=== PATIENT | female | born 1955 | race Caucasian/White ===

== ENCOUNTER 2017-10-13 17:44 | Observation (INO) | payer BC, OTHER ==
[2017-10-13 18:36] LABS: Hematocrit 42 % (35-47); Hemoglobin 13.9 g/dl (12.0-16.0); Mean Corpuscular HGB Conc 34 g/dl (31-36); Mean Corpuscular Hemoglobin 30 pg (27-31); Mean Corpuscular Volume 89 fL (80-97); Mean Platelet Volume 10 um3 (7.4-10.4); Red Blood Count 4.67 10^6/ul (4.0-5.4); Red Cell Distribution Width 14 % (10.5-15); White Blood Count 7.4 10^3/ul (3.5-10.8)
[2017-10-13 18:51] LABS: Albumin 3.9 g/dL (3.2-5.2); BUN/Creatinine Ratio 16.5 (8-20); Calcium 9.4 mg/dL (8.6-10.3); EGFR African American 80.8 (>60); EGFR Non-African American 62.8 (>60); Potassium 4.3 mmol/L (3.5-5.0); Total Bilirubin 0.5 mg/dL (0.2-1.0); Total Protein 6.9 g/dL (6.4-8.9)
[2017-10-13] MEDS ORDERED: NS 0.9% 1000 ML* 1,000 ML IV ONE (19:08)
[2017-10-13] MEDS ORDERED: Diltiazem IV* 5 MG/ML 5 ML VIAL (for loading dose/IV Push) (25 MG) IV SLOW PU ONE ×2 (19:08→19:57)
--- NOTE | 2017-10-13 19:18 | RAD ---
Indication: Chest pain. Atrial fibrillation. RIGHT shoulder pain. Comparison: November 06, 2016 CT. Technique: Upright AP 1845 hours Report: Elevated lung volumes and both diffuse mild prominence of the interstitial markings and patchy rarefaction of the mid to upper lung zone interstitial markings. Bilateral calcified granulomas noted corresponding with prior CT findings most conspicuous at the periphery of the LEFT midlung zone. No suspicious focal pulmonary lesions, alveolar consolidation, pleural effusion, pneumothorax. Negative for cardiomegaly. Unremarkable central pulmonary vasculature. Tortuous thoracic aorta in part due to dextroscoliosis of the thoracic spine without significant change. IMPRESSION: Stigmata of obstructive lung disease and prior granulomatous disease. No acute pulmonary or cardiac process evident.
[2017-10-13] MEDS ORDERED: Aspirin TAB* 325 MG PO ONE (19:26)
[2017-10-13] MEDS ORDERED: oxyCODONE/Acetamin 5/325 MG* TAB PO ONE (20:40)
[2017-10-13] MEDS ORDERED: Acetaminophen TAB* 325 MG PO PRN (23:06)
[2017-10-13] MEDS ORDERED: Digoxin IV* 0.5 MG/2 ML AMP (0.25 MG/ML) IV SLOW PU ONE (23:06)
[2017-10-13] MEDS ORDERED: Cyclobenzaprine TAB* 10 MG PO PRN (23:06)
[2017-10-13] MEDS ORDERED: oxyCODONE/Acetamin 5/325 MG* TAB PO PRN (23:09)
[2017-10-13 23:50] LABS: TSH (Thyroid Stimulating Horm) 7.01 mcIU/mL (0.34-5.60)
--- NOTE | 2017-10-14 02:33 | HP ---
CC: Dr. Kraus; Dr. Bone * HISTORY AND PHYSICAL: DATE OF ADMISSION: 10/13/17 PRIMARY CARE PROVIDER: Dr. Kraus SIMULATION EDUCATOR: Dr. Bone. CHIEF COMPLAINT: Atrial fibrillation. HISTORY OF PRESENT ILLNESS: Ms. Soto is a 62-year-old female who states that this past Thursday, at approximately midnight, she was awakened from sleep by her significant other and noted that she went into atrial fibrillation. The patient has a history of paroxysmal atrial fibrillation and states in general, the episodes are usually short lived. In fact, the patient had an episode where she went into atrial fibrillation over the summer which broke on its own at home without any intervention. Because of this history, she did not seek attention right away. The patient states that from time to time over the last couple of days, she thought the AFib went away; however, when she sat quietly, she noted that she was still having palpitations. The patient denies any significant shortness of breath associated with this. In addition to being in atrial fibrillation, the patient notes that she has had significant right shoulder pain since yesterday afternoon. She states that it has gotten progressively worse. She does note that heating pad last evening helped; however, in the morning of admission after getting up and moving for a little while, the pain came back. She does note that she feels better when she is sitting straight upright with her shoulders back and has more pain when she is standing or walking. She describes that as almost feeling like a spasm. The patient also has partial relief of her pain when she positioned her arm with her shoulder completely abducted and forearm bent back behind her head. PAST MEDICAL HISTORY: 1. Paroxysmal atrial fibrillation. 2. Thoracic aortic ectasia. 3. Osteopenia. 4. Mitral valve insufficiency. 5. Hypothyroidism. 6. Marfan's syndrome. PAST SURGICAL HISTORY: 1. Bilateral eye surgery for strabismus. 2. Polyp removal from the urinary tract as a child. MEDICATIONS: 1. Alendronate 70 mg p.o. weekly. 2. Levothyroxine 88 mcg p.o. daily. 3. Metoprolol XL 25 mg p.o. b.i.d. 4. Potassium chloride 10 mEq p.o. b.i.d. 5. Xarelto 20 mg p.o. daily. ALLERGIES: SULFA and NICKEL. FAMILY HISTORY: Mom at the age of 78 of a CVA. Dad at the age of 45. He had Marfan's but related to an HI. SOCIAL HISTORY: The patient is a lifelong nonsmoker. She drinks alcohol on occasion. 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 She has a significant other. His name is Beto Fuchs and he is her surrogate decision maker. She has no children. REVIEW OF SYSTEMS: A complete 11-system review of systems is obtained. Pertinent positives and negatives are as per HPI and otherwise negative. PHYSICAL EXAMINATION GENERAL: The patient is a well-developed, middle-aged female, sleeping on the stretcher but awakened to voice, in no acute distress. VITAL SIGNS: Blood pressure 85/61, pulse is 121, respirations 15, temp not obtained, O2 sat 93% on room air. HEENT: Pupils are equal and round. Extraocular muscles are intact. Oropharynx is clear. Oral mucosa is moist. There is no submandibular, cervical , or supraclavicular adenopathy. Thyroid is not enlarged. No thyroid nodules are noted. PULMONARY: Lungs are clear to auscultation bilaterally. CARDIAC: Normal S1, S2. Heart rate is regularly irregular and tachycardic. She is in atrial fibrillation on the monitor. She has no lower extremity edema. ABDOMEN: Bowel sounds are present. Abdomen is soft, nontender, nondistended. MUSCULOSKELETAL: There is no cyanosis or clubbing of the digits. There is full active range of motion of all four extremities. There is no increased pain with movement about the right shoulder. SKIN: Warm and dry. There are no rashes. NEUROLOGIC: Cranial nerves II through XII are grossly intact. Sensation is intact to light touch throughout. Strength is 5/5 and symmetric in both upper and lower extremities bilaterally. PSYCH: The patient is alert. She is oriented x3. Affect appears appropriate. LABORATORY DATA: WBC 7.4, hemoglobin 13.9, hematocrit 42, platelets 185. D- dimer less than 200. Sodium 135, potassium 4.3, chloride 103, CO2 27, BUN 15, creatinine 0.91, glucose 87, lactic acid 1, calcium 9.4, magnesium 2.0, bilirubin 0.5, AST 18, ALT 15, alk phos 32, troponin 0 up to 0.01, albumin 3.9. EKG reveals atrial fibrillation with rapid ventricular response. Chest x-ray stigmata of obstructive lung disease and prior granulomatous disease. No acute pulmonary or cardiac process evident. ASSESSMENT AND PLAN: Ms. Soto is a 62-year-old female with a history of Marfan's syndrome, hypothyroidism, mitral valve insufficiency, and paroxysmal atrial fibrillation, who presents to the emergency room with complaints of being in atrial fibrillation since this past Thursday and with complaints of right shoulder pain. 1. Atrial fibrillation. The patient's heart rate has fluctuated quite a bit anywhere from the 90s up to 140s. When she is up, she has noted that her heart rate is on the higher side. Her blood pressure is soft, therefore I cannot go up much on her metoprolol. We will go ahead and try digoxin 0.25 mg IV x1 now and if this does not improve her heart rate or break her back into sinus rhythm , we can repeat a dose. The patient states previously she has responded well to digoxin. She will be maintained on her usual dose of Xarelto. At this point , I will hold off on a cardiology consultation; however, if her atrial fibrillation becomes difficult or unable to be controlled conservatively perhaps cardiology evaluation for cardioversion will be warranted. 2. Right shoulder pain. My suspicion is that this is musculoskeletal in nature. Given the fact that it responded well to heat as well as being somewhat positional makes cardiac chest pain seem less likely. For now, we will treat this conservatively with Tylenol, Flexeril, and Percocet as needed. If the shoulder pain goes away when her heart rate becomes controlled or she is out of atrial fibrillation that may lead me to be more concerned that shoulder pain is in fact cardiac in nature. At this point, I am going to hold off on stress testing. 3. Hypothyroidism. The patient will be maintained on her usual dose of Synthroid. Her most recent TSH in our system was January of this year and was within normal range. I will go ahead and add on TSH to the labs drawn in the ER. 4. DVT prophylaxis: According to the Adult Thrombosis Prophylaxis Risk Factor Assessment Guide, the patient has a total risk factor score of 2, making her moderate risk. She is already on Xarelto and this will act as a DVT prophylaxis. 5. Code status is full and again the patient indicates that her partner, Beto, is her surrogate decision maker. TIME SPENT: 65 minutes was spent admitting this patient. [id number]/[facility] #: [id number] MTDD
[2017-10-14] MEDS ORDERED: Levothyroxine TAB* 88 MCG TAB PO SCH ×2 (06:00→11:00)
[2017-10-14] MEDS ORDERED: Metoprolol Succinate XL TAB* 25 MG PO SCH (09:00)
[2017-10-14] MEDS ORDERED: Potassium Chlor TAB* 10 MEQ TAB.ER PO SCH (09:00)
[2017-10-14] MEDS ORDERED: Rivaroxaban TAB(*) 20 MG TAB PO SCH (09:00)
--- NOTE | 2017-10-14 09:00 | PN ---
Subjective Date of Service: 10/14/17 Interval History: Still has palpitations as usual when she is in A fib. No SOB, SOB, cough, chest pain, lightheadedness. Objective Active Medications: Acetaminophen (Tylenol Tab*) 650 mg PO Q4H PRN PRN Reason: PAIN Cyclobenzaprine HCl (Flexeril Tab*) 10 mg PO TID PRN PRN Reason: SPASMS Last Admin: 10/14/17 05:56 Dose: 10 mg Levothyroxine Sodium (Synthroid Tab*) 88 mcg PO 1100 O[facility] Metoprolol Succinate (Toprol Xl Tab*) 25 mg PO BID OZZIE Oxycodone/Acetaminophen (Percocet 5/325 Tab*) 1 tab PO Q6H PRN PRN Reason: PAIN Potassium Chloride (Klor Con Er Tab*) 10 meq PO BID OZZIE Rivaroxaban (Xarelto (*)) 20 mg PO DAILY [facility] Vital Signs 10/13/17 10/13/17 10/14/17 23:22 23:26 05:56 Temperature 97.4 F Pulse Rate 92 103 Respiratory 16 15 Rate Blood Pressure 95/70 (mmHg) O2 Sat by Pulse 96 Oximetry 10/14/17 10/14/17 10/14/17 06:31 07:34 08:42 Temperature 97.5 F 97.8 F Pulse Rate 97 66 Respiratory 16 16 18 Rate Blood Pressure 103/64 99/60 (mmHg) O2 Sat by Pulse 95 94 Oximetry Oxygen Devices in Use Now: None Appearance: Alert, supine in bed. Somewhat anxious/concerned, otherwise looks comfortable. Eyes: No Scleral Icterus Respiratory: Symmetrical Chest Expansion and Respiratory Effort, Clear to Auscultation, Clear to Percussion Cardiovascular: NL Sounds; No Murmurs; No JVD, RRR - rapid and irreg, No Edema Result Diagrams: 10/13/17 18:12 10/13/17 18:12 Assess/Plan/Problems-Billing Assessment:
--- NOTE | 2017-10-14 09:12 | PN ---
Subjective Date of Service: 10/14/17 Interval History: Still has palpitations as usual when she is in A fib. No SOB, SOB, cough, chest pain, lightheadedness. Objective Active Medications: Acetaminophen (Tylenol Tab*) 650 mg PO Q4H PRN PRN Reason: PAIN Cyclobenzaprine HCl (Flexeril Tab*) 10 mg PO TID PRN PRN Reason: SPASMS Last Admin: 10/14/17 05:56 Dose: 10 mg Levothyroxine Sodium (Synthroid Tab*) 88 mcg PO 1100 [facility] Metoprolol Succinate (Toprol Xl Tab*) 25 mg PO BID [facility] Last Admin: 10/14/17 08:58 Dose: 25 mg Oxycodone/Acetaminophen (Percocet 5/325 Tab*) 1 tab PO Q6H PRN PRN Reason: PAIN Potassium Chloride (Klor Con Er Tab*) 10 meq PO BID [facility] Last Admin: 10/14/17 08:59 Dose: 10 meq Rivaroxaban (Xarelto (*)) 20 mg PO DAILY [facility] Last Admin: 10/14/17 08:58 Dose: 20 mg Vital Signs 10/13/17 10/13/17 10/14/17 23:22 23:26 05:56 Temperature 97.4 F Pulse Rate 92 103 Respiratory 16 15 Rate Blood Pressure 95/70 (mmHg) O2 Sat by Pulse 96 Oximetry 10/14/17 10/14/17 10/14/17 06:31 07:34 08:42 Temperature 97.5 F 97.8 F Pulse Rate 97 66 Respiratory 16 16 18 Rate Blood Pressure 103/64 99/60 (mmHg) O2 Sat by Pulse 95 94 Oximetry Oxygen Devices in Use Now: None Appearance: Alert, supine in bed. Somewhat apprehensive/concerned, otherwise looks comfortable. Eyes: No Scleral Icterus Neck: NL Appearance and Movements; NL JVP, No Thyroid Enlargement, Masses Respiratory: Symmetrical Chest Expansion and Respiratory Effort, Clear to Auscultation, Clear to Percussion Cardiovascular: NL Sounds; No Murmurs; No JVD, No Edema, - - rapid and irreg Extremities: No Edema, No Clubbing, Cyanosis, - Skin: No Rash or Ulcers, No Nodules or Sclerosis, - Neurological: Alert and Oriented x 3, NL Sensation Result Diagrams: 10/13/17 18:12 11/14/17 18:12 Assess/Plan/Problems-Billing Assessment: - Patient Problems (1) Atrial fibrillation Current Visit: No Status: Chronic Priority: High Onset Date: 09/29/14 Code(s): I48.91 - UNSPECIFIED ATRIAL FIBRILLATION SNOMED Code(s): 26928206 Comment: Patient has a history of paroxysmal atrial fibrillation that has not required cardioversion in the past. Pt states this is the longest period of AF she has ever had, and it makes her uncomfortable. Dr. Henderson performed elctrical cardioversion 10/14. Pt will get one dronedarone before discharge, take one at bedtime tonight, then bid with a meal. Fup Dr. Bone. (2) Marfan's syndrome Current Visit: No Status: Chronic Code(s): Q87.40 - MARFAN'S SYNDROME, UNSPECIFIED SNOMED Code(s): 99309854 Comment: Continue outpatient follow-up with PCP. Note has ectasia of thoracic aorta and UT. (3) Hypothyroidism Current Visit: No Status: Chronic Code(s): E03.9 - HYPOTHYROIDISM, UNSPECIFIED SNOMED Code(s): 09819343 Comment: TSH 7.01 10/13/17. Increase levothyroxine to 100 mcg daily. Status and Disposition: Discharge now. Fup Lizandro Benoit.
[2017-10-14 09:14] LABS: Free T4 1.03 ng/dL (0.61-1.12)
[2017-10-14] MEDS ORDERED: Flumazenil* 0.1 MG/ML 5 ML MDV ONE (14:59)
[2017-10-14] MEDS ORDERED: Naloxone* 0.4 MG/ML 1 ML VIAL ONE (14:59)
[2017-10-14] MEDS ORDERED: fentaNYL* 50 MCG/ML 2 ML VIAL (100 MCG VIAL) ONE (14:59)
[2017-10-14] MEDS ORDERED: Midazolam* 1 MG/ML 10 ML VIAL (10 MG) ONE (15:00)
[2017-10-14 16:34] VITALS: BP 96/60
[2017-10-14] MEDS ORDERED: Dronedarone TAB* 400 MG PO ONE (17:02)
[2017-10-14] MEDS ORDERED: Dronedarone TAB* 400 MG PO SCH (21:00)
--- NOTE | 2017-10-15 01:21 | CARD ---
CC: Dr. Zulay Kraus; Dr. Meir Bone * ELECTRICAL CARDIOVERSION NOTE: DATE OF CARDIOVERSION: 10/14/17 - ROOM #443 DESCRIPTION OF PROCEDURE: The indications, risks, and benefits were discussed with the patient in front of her significant other and she was amenable to proceeding. The patient confirmed that she had not missed any Xarelto doses and her telemetry tracing confirmed she remained in AFib with a rapid ventricular rate. A time-out procedure was called. Following this, the patient received a total of 4 mg of Versed and 25 mcg of fentanyl for sedation as well as normal saline wide open as her systolic pressures were in the high 80s to low 110s. The patient received 150 joules of energy synchronously delivered across the chest wall with successful cardioversion to normal sinus rhythm. Currently, she is in sinus rhythm, 62 beats a minute with a blood pressure of 93/63, respiratory rate 15, and oxygen saturation 93% on room air. CONCLUSION: Successful electrical cardioversion. No complications. [id number]/[facility] #: [id number] [facility]ITAL[facility]athan
[2017-10-15] MEDS ORDERED: Levothyroxine TAB* 100 MCG TAB PO SCH (06:00)
[2017-10-15] MEDS ORDERED: Metoprolol Succinate XL TAB* 25 MG PO SCH (09:00)
--- NOTE | 2017-10-15 12:24 | DS ---
CC: Dr. Kraus; Dr. Bone * DISCHARGE SUMMARY: DATE OF ADMISSION: 10/13/17 DATE OF DISCHARGE: 10/14/17 HISTORY: This 62-year-old woman presented with episode of atrial fibrillation. She gets palpitations, which are really bothersome to her. She is quite aware when the atrial fibrillation starts and stops. She does not get short of breath , have chest pain, lightheadedness. She has had atrial fibrillation for about 3 years. She has many episodes that stop on their own. She has never had cardioversion before. The patient is placed on telemetry. She remained in atrial fibrillation overnight. Dr. Henderson performed electrical cardioversion which was successful. She is being started on dronedarone 400 mg b.i.d. She will receive 1 dose before discharge and take another dose at bedtime and then take it twice daily with breakfast and dinner following that. Her TSH is noted to be over 7 and her levothyroxine dose was increased from 88 to 100 mcg daily. FINAL DIAGNOSES: 1. Paroxysmal atrial fibrillation. 2. Marfan syndrome. 3. Hypothyroidism. DISCHARGE MEDICATIONS: 1. Dronedarone 400 mg b.i.d. with meals. 2. Levothyroxine 100 mcg daily. 3. Metoprolol succinate XL 25 mg once daily, this is a reduction from twice daily. 4. Alendronate 70 mg weekly. 5. Rivaroxaban 20 mg daily. 6. Potassium chloride 10 mEq twice daily. [id number]/[facility] #: [id number] MTDD
--- NOTE | 2017-10-15 19:39 | CONS ---
CC: Dr. Bone; Dr. Kraus; hospitalist. * CARDIOLOGY CONSULTATION REPORT: DATE OF CONSULT: 10/14/17. REASON FOR CONSULT: Atrial fibrillation. HISTORY OF PRESENT ILLNESS: Ms. Soto is a 62-year-old woman with a history of paroxysmal atrial fibrillation and Marfan's syndrome, followed by my partner , Dr. Bone. The patient stated that over the weekend, a couple of days before admission, she was awakened from sleep with palpitations and racing consistent with her past history of atrial fibrillation. She stayed home as typically these episodes are self-limited, but it persisted, so she presented to the hospital yesterday on 10/13/17. The patient thought she has been in and out of it at least once over the weekend. The patient denied any association of the onset with alcohol, caffeine. She works a lot, but does not feel that she was losing a significant amount of sleep and she also presented because of progressive shoulder pain that increased while standing and walking and improved lying down. The patient denied feeling lightheaded, dizzy or having chest pain. There was no pleuritic quality to the right shoulder pain. The patient states that she has had no recent medication adjustments prior to admission, but is aware that her levothyroxine was increased on admission based on thyroid levels. PAST MEDICAL HISTORY: The patient has a past medical history of paroxysmal atrial fibrillation, Marfan's syndrome, thoracic aneurysm, mitral valve regurgitation osteopenia and hypothyroid disease. PAST SURGICAL HISTORY: Includes eye surgery and polyp removal from I believe her bladder in childhood. INPATIENT MEDICATIONS: Included: 1. Tylenol p.r.n. 2. Flexeril 10 mg t.i.d. p.r.n. 3. Toprol XL 25 mg b.i.d. 4. Synthroid 100 mcg a day. 5. Percocet p.r.n. 6. Potassium was given. 7. She is on Xarelto 20 mg a day. ALLERGIES: SULFA and NICKEL. FAMILY HISTORY: Significant in that her mother had a history of stroke for which she at age 78. Her father at age 45 from Marfan's with myocardial infarction. SOCIAL HISTORY: The patient is a nonsmoker, rare alcohol. 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 REVIEW OF SYSTEMS: A 14-point review of systems was performed, see history of present illness, with several days of palpitations and right shoulder pain. No recent fevers, chills, sweats. No change in bowel or bladder habits. No shortness of breath, orthopnea, PND. No dizziness. No diaphoresis. No recent tick bites that she is aware of. No perceived history of snoring or daytime fatigue. All other review of systems was negative. The patient states she has been compliant with her Xarelto. PHYSICAL EXAM: On exam, the patient is 5 feet 10 inches, weighs 161 pounds with a BMI of 23. Vitals Signs: On arrival to the emergency room, she was in atrial fibrillation, 140 betas per minute, blood pressure 116/93. Vitals at the time I met her were 87/58 and she was in A-Fib with rapid ventricular rate in the 120s. General Appearance: A tall, somewhat older woman, in no acute distress. Psychologically, calm, cooperative and pleasant. Neurologically, awake, alert and oriented to person, place, and time. Cranial nerves II through XII are grossly intact. Her left lid lags a little more than the right , but when I mentioned that with discussion, she can open her lids equally to slight asymmetry. No gross sensory or motor deficits. Speech was articulate. Comprehension is good. She follows commands well. I did not watch her walk. Skin: Warm, dry, age appropriate changes. No cyanosis or rashes appreciated. HEENT: Pupils were equal and round. Mucous membranes moist. Neck: Without increased JVP. Good carotid pulses. No audible bruits. Breath sounds were clear with good effort. No wheezes, rales or rhonchi. Coronary: S1, S2 irregularly irregular without murmurs appreciated. Abdomen: Flat, active bowel sounds, soft and nontender. Lower extremities are free of edema and warm. LABORATORY DATA/DIAGNOSTIC STUDIES: The patient's 12-lead ECG on admission, on 10/13/17 confirmed that she was in atrial fibrillation with rapid ventricular rate of 140 beats per minute, QRS axis +60, normal interventricular conduction time and non-specific ST and T-wave changes. White count 7.4, hemoglobin 13.9, platelets 185. D-dimer less than 200. Sodium 135, potassium 4.3, chloride 103, bicarb 27, BUN 15, creatinine 0.91. Troponin 0.00. Troponin #2 of 0.01. Troponin #3 of 0.01. TSH is 7.01. Free T4 1.03. Echocardiogram from 11/14/16 showed mild left ventricular hypertrophy, ejection fraction of 55% to 60%, mild mitral valve prolapse with moderate mitral insufficiency, mild dilatation of the ascending aorta of 3.5 cm. ASSESSMENT AND PLAN: In summary, Carrie Soto is a 62-year-old woman with a history of paroxysmal atrial fibrillation which was occurring several times a year, but in the past self-limited, now presenting with atrial fibrillation of several days by history, on Xarelto and metoprolol. I concurred with Dr. Bunch, electrical cardioversion is indicated and the patient was amenable to proceeding and we have successfully cardioverted her. Prior to sedation and cardioversion, I discussed antiarrhythmics with her and after discussion, we are going to start her on Multaq 400 mg b.i.d., although weak, it is very safe. The patient had concerns about beta-nelsy and thoracic ectasia and history of Marfan's, I am planning on decreasing her Toprol from 50 mg a day to 25 because of the risk of bradycardia (post-cardioversion heart rate in the 60s), and we can titrate as indicated. [id number]/[facility] #: [id number] MTDD
== END 2017-10-14 17:50 | disposition home or self-care (01) ==
LOC: ED 17:44 → MEDTELE 23:06
PROVIDERS: ADMIT Hospitalist; ATTEND Internal Medicine
DX: I48.0 Paroxysmal atrial fibrillation (principal); M25.511 Pain in right shoulder; Q87.40 Marfan syndrome, unspecified; E03.9 Hypothyroidism, unspecified; I77.810 Thoracic aortic ectasia; M85.80 Other specified disorders of bone density and structure, unspecified site; Z79.899 Other long term (current) drug therapy; I34.0 Nonrheumatic mitral (valve) insufficiency; Z88.2 Allergy status to sulfonamides; Z79.01 Long term (current) use of anticoagulants
CPT/HCPCS: 36415; 71010; 80053; 83605; 83735; 84439; 84443; 84484; 85025; 85379; 92960; 93005; 96374; 96375; 96376; 99156; 99157; 99284; A9270-GY; G0378; J1160; J2250; J2310; J3010

== ENCOUNTER 2018-01-08 14:12 | Emergency (ER) | payer BC ==
[2018-01-08 15:01] LABS: ABS Basophils 0.1 10^3/ul (0-0.2); ABS Eosinophils 0.1 10^3/ul (0-0.6); ABS Lymphocytes 1.8 10^3/ul (1.0-4.8); ABS Monocytes 0.8 10^3/ul (0-0.8); ABS Neutrophils 4.6 10^3/ul (1.5-7.7); ABS Nucleated RBC 0 10^3/ul; Eosinophil % 1.1 % (0-6); Hematocrit 42 % (35-47); Hemoglobin 14.1 g/dl (12.0-16.0); Lymphocyte % 24.1 % (25-47); Mean Corpuscular HGB Conc 34 g/dl (31-36); Mean Corpuscular Hemoglobin 30 pg (27-31); Mean Corpuscular Volume 88 fL (80-97); Mean Platelet Volume 9 um3 (7.4-10.4); Nucleated Red Blood Cells % 0; Platelet Count 191 10^3/ul (150-450); Red Blood Count 4.72 10^6/ul (4.0-5.4); Red Cell Distribution Width 14 % (10.5-15); White Blood Count 7.3 10^3/ul (3.5-10.8)
[2018-01-08 15:10] LABS: INR 2.1 (0.77-1.02)
--- NOTE | 2018-01-08 15:14 | RAD ---
HISTORY: Shortness of breath, atrial fibrillation COMPARISONS: October 13, 2017 VIEWS: 1: frontal portable view of the chest at 2:54 PM. The patient is obliqued to the left. FINDINGS: LINES AND TUBES: None. CARDIOMEDIASTINAL SILHOUETTE: The cardiomediastinal silhouette is normal for portable technique. PLEURA: The costophrenic angles are sharp. No pleural abnormalities are noted. LUNG PARENCHYMA: There is hyperinflation. There is stable calcified granuloma of the left midlung. ABDOMEN: The upper abdomen is clear. There is no subphrenic gas. BONES AND SOFT TISSUES: There is a scoliotic curvature of the spine IMPRESSION: HYPERINFLATION. NO ACTIVE CARDIOPULMONARY DISEASE.
[2018-01-08 15:16] LABS: EGFR Non-African American 65.3 (>60)
[2018-01-08] MEDS ORDERED: NS 0.9% 1000 ML* 1,000 ML IV ONE (16:08)
[2018-01-08 18:07] VITALS: BP 105/79
--- NOTE | 2018-01-09 16:50 | ED ---
Talya Timmons Thomas, scribed for Mukesh Chirinos MD on 01/08/18 at 1516 . Shortness of Breath - HPI Summary HPI Summary: The patient is a 62 year old female presenting with chest pain, palpitations, and shortness of breath that has been on and off for the last 10 hours. She rates the chest pain 3/10 and describes it as tightness. She describes the palpitations as fast and irregular. She denies nausea, vomiting, and near- syncope. She is on Xarelto and Multaq. - History of Current Complaint Chief Complaint: EDShortnessOfBreath Time Seen by Provider: 01/08/18 14:27 Hx Obtained From: Patient Onset/Duration: Lasting Hours - 10, Still Present Timing: Intermittent Episodes Lasting: Current Severity: Mild Dyspnea At: Rest Aggrevating Factors: Nothing Alleviating Factors: Spontaneous Resolution - Allergy/Home Medications Allergies/Adverse Reactions: Allergies Allergy/AdvReac Type Severity Reaction Status Date / Time MS Sulfa Drugs [Sulfa Drugs] Allergy Intermediate Rash Verified 08/21/16 19:04 MS Nickel [Nickel] Allergy Rash Verified 08/21/16 19:04 PMH/Surg Hx/FS Hx/Imm Hx Endocrine/Hematology History: Reports: Hx Thyroid Disease, Other Endocrine/ Hematological Disorders - HX LYMES DISEASE 2012 Denies: Hx Diabetes Cardiovascular History: Reports: 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, Other Cardiovascular Problems/Disorders - HX TIA Denies: Hx Hypertension, Hx Pacemaker/ICD, Hx Peripheral Vascular Disease History: Denies: Hx Dialysis, Hx Renal Disease Musculoskeletal History: Reports: Other Musculoskeletal History - MARFAN'S SYNDROME (CONTECTIVE TISSUE DISORDER) Denies: Hx Arthritis, Hx Rheumatoid Arthritis, Hx Osteoporosis Sensory History: Reports: Hx Cataracts, Hx Contacts or Glasses Denies: Hx Hearing Aid Opthamlomology History: Reports: Hx Cataracts, Hx Contacts or Glasses Neurological History: Denies: Hx Headaches, Hx Seizures, Hx Transient Ischemic Attacks (TIA) Psychiatric History: Denies: Hx Anxiety, Hx Panic Disorder - Cancer History Hx Chemotherapy: No Hx Radiation Therapy: No - Surgical History Surgery Procedure, Year, and Place: BL CATARACT SURGERY, 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 Infectious Disease History: No Infectious Disease History: Reports: Hx Shingles - NOT CURRENT Denies: Traveled Outside the [place] in Last 30 Days - Family History Known Family History: Positive: Other - Marfan syndrome - Social History Alcohol Use: Rare Alcohol Amount: GLASS OF WINE W/DINNER Substance Use Type: Reports: None Smoking Status (MU): Never Smoked Tobacco Review of Systems Positive: Palpitations, Chest Pain Positive: Shortness Of Breath Negative: Vomiting, Nausea Negative: Syncope - near All Other Systems Reviewed And Are Negative: Yes Physical Exam - Summary Physical Exam Summary: VITAL SIGNS: Reviewed. GENERAL: Patient is a well-developed and nourished female who is lying comfortable in the stretcher. Patient is not in any acute respiratory distress. HEAD AND FACE: No signs of trauma. No ecchymosis, hematomas or skull depressions. No sinus tenderness. EYES: PERRLA, EOMI x 2, No injected conjunctiva, no nystagmus. EARS: Hearing grossly intact. Ear canals and tympanic membranes are within normal limits. MOUTH: Oropharynx within normal limits. NECK: Supple, trachea is midline, no adenopathy, no JVD, no carotid bruit, no c- spine tenderness, neck with full ROM. CHEST: Symmetric, no tenderness at palpation LUNGS: Clear to auscultation bilaterally. No wheezing or crackles. CVS: Regular rate and rhythm, S1 and S2 present, no murmurs or gallops appreciated. ABDOMEN: Soft, non-tender. No signs of distention. No rebound no guarding, and no masses palpated. Bowel sounds are normal. EXTREMITIES: FROM in all major joints, no edema, no cyanosis or clubbing. NEURO: Alert and oriented x 3. No acute neurological deficits. Speech is normal and follows commands. SKIN: Dry and warm Triage Information Reviewed: Yes Vital Signs On Initial Exam: Initial Vitals Temp Pulse Resp BP Pulse Ox 97.8 F 76 18 96/61 97 01/08/18 14:17 01/08/18 14:17 01/08/18 14:17 01/08/18 14:17 01/08/18 14:17 Vital Signs Reviewed: Yes Diagnostics - Vital Signs Vital Signs Temp Pulse Resp BP Pulse Ox 01/08/18 14:17 97.8 F 76 18 96/61 97 - Laboratory Lab Results: Lab Results 01/08/18 Range/Units 14:40 WBC 7.3 (3.5-10.8) 10^3/ul RBC 4.72 (4.0-5.4) 10^6/ul Hgb 14.1 (12.0-16.0) g/dl Hct 42 (35-47) % MCV 88 (80-97) fL MCH 30 (27-31) pg MCHC 34 (31-36) g/dl RDW 14 (10.5-15) % Plt Count 191 (150-450) 10^3/ul MPV 9 (7.4-10.4) um3 Neut % (Auto) 62.7 (38-83) % Lymph % (Auto) 24.1 L (25-47) % [place] % (Auto) 11.1 H (1-9) % Eos % (Auto) 1.1 (0-6) % Baso % (Auto) 1.0 (0-2) % Absolute Neuts (auto) 4.6 (1.5-7.7) 10^3/ul Absolute Lymphs (auto) 1.8 (1.0-4.8) 10^3/ul Absolute Monos (auto) 0.8 (0-0.8) 10^3/ul Absolute Eos (auto) 0.1 (0-0.6) 10^3/ul Absolute Basos (auto) 0.1 (0-0.2) 10^3/ul Absolute Nucleated RBC 0 10^3/ul Nucleated RBC % 0 Result Diagrams: 01/08/18 14:40 01/08/18 14:40 Lab Statement: Any lab studies that have been ordered have been reviewed, and results considered in the medical decision making process. - Radiology CXR Xray Interpretation: No Acute Changes - HYPERINFLATION. NO ACTIVE CARDIOPULMONARY DISEASE. Radiology Interpretation Completed By: Radiologist - EKG 14:20 Cardiac Rate: Bradycardia EKG Rhythm: Sinus Bradycardia - at 50 BPM EKG Interpretation: ST depressions in II, III, V4-V6. Course/Dx - Course Assessment/Plan: The patient is a 62 year old female presenting with chest pain , palpitations, and shortness of breath that has been on and off for the last 10 hours. She rates the chest pain 3/10 and describes it as tightness. She describes the palpitations as fast and irregular. She denies nausea, vomiting, and near-syncope. She is on Xarelto and Multaq. Test results are without significant abnormalities. EKG shows sinus rhythm without any episodes of A- Fib. Two troponins taken four hours apart are negative. The patient continues to be asymptomatic. Therefore, the patient will be discharged home for follow up with primary care. The patient is hemodynamically stable and alert and oriented x3. - Diagnoses Provider Diagnoses: Atypical chest pain Discharge - Discharge Plan Condition: Stable Disposition: HOME Patient Education Materials: Chest Pain (ED) Referrals: Zulay Kraus MD [Primary Care Provider] - 3 Days Additional Instructions: Follow up with your primary care provider in three days. Return to the emergency department for any new or worsening symptoms. The documentation as recorded by the Talya fajardo Thomas accurately reflects the service I personally performed and the decisions made by Taran bhatt Walter, MD.
== END 2018-01-08 18:06 | disposition home or self-care (01) ==
LOC: ED 14:12
DX: R07.89 Other chest pain (principal); E07.9 Disorder of thyroid, unspecified; A69.20 Lyme disease, unspecified; I34.1 Nonrheumatic mitral (valve) prolapse; Q87.40 Marfan syndrome, unspecified; Z86.73 Personal history of transient ischemic attack (TIA), and cerebral infarction without residual deficits
CPT/HCPCS: 36415; 71045; 80053; 82550; 82553; 83605; 83735; 83880; 84443; 84484; 85025; 85610; 85730; 93005; 96360; 99283

== ENCOUNTER 2018-08-09 16:06 | Observation (INO) | payer BC ==
--- NOTE | 2018-08-09 16:23 | ED ---
Palpitations / Dysrhythmia - HPI Summary HPI Summary: 62 y/o female presents to the ED c/o 03/09 pain in R shoulder lasting 2 weeks. Pain was initially worse and has improved since onset. Pain aggravated with weight-bearing anmd walking but not with ROM R shoulder. Associated sx: mild chest discomfort described as a "tenseness", fatigue. PMHx AFIB. Seen by doctor , started Flexeril three nights ago. AFIB started two nights ago. PMHx Marfan's Syndrome. 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 FHx - father had Marfan's and of a heart attack. - History of Current Complaint Chief Complaint: EDDysrhythmPalp Time Seen by Provider: 08/09/18 16:20 Hx Obtained From: Patient Onset/Duration: Lasting Weeks, Still Present Severity Initially: Severe Severity Currently: Moderate Aggravating: Other - weight bearing, walking Alleviating: Rest Associated Signs & Symptoms: Chest Pain - Allergy/Home Medications Allergies/Adverse Reactions: Allergies Allergy/AdvReac Type Severity Reaction Status Date / Time Sulfa (Sulfonamide Allergy Intermediate Rash Verified 08/09/18 20:49 Antibiotics) nickel Allergy Rash Verified 08/09/18 20:49 Home Medications: Home Medications Ascorbic Acid TAB* [Vitamin C TAB*] 500 mg PO DAILY 08/09/18 [History Confirmed 08/09/18] Baclofen TAB* [Lioresal TAB*] 5 mg PO TID PRN 08/09/18 [History Confirmed ] Cyclobenzaprine (NF) [Cyclobenzaprine 5 MG (NF)] 5 mg PO Q8HR 08/09/18 [History Confirmed 08/09/18] Flaxseed Oil 1,000 mg PO DAILY 08/09/18 [History Confirmed 08/09/18] Levothyroxine TAB* [Synthroid TAB*] 100 mcg PO .SIX DAYS A WEEK 08/09/18 [ History Confirmed 08/09/18] Magnesium Oxide [Magnesium] 250 mg PO BID 08/09/18 [History Confirmed 08/09/18] Metoprolol Succinate XL TAB* [Toprol XL TAB*] 12.5 mg PO BEDTIME 08/09/18 [ History Confirmed 08/09/18] Metoprolol Succinate XL TAB* [Toprol XL TAB*] 25 mg PO DAILY@1200 08/09/18 [ History Confirmed 08/09/18] Rivaroxaban TAB(*) [Xarelto 20 mg] 20 mg PO DAILY 08/09/18 [History Confirmed ] Selenium (NF) 200 mcg PO DAILY 08/09/18 [History Confirmed 08/09/18] PMH/Surg Hx/FS Hx/Imm Hx Previously Healthy: No Endocrine/Hematology History: Reports: Hx Thyroid Disease, Other Endocrine/ Hematological Disorders - HX LYMES DISEASE 2012 Denies: Hx Diabetes Cardiovascular History: Reports: 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, Other Cardiovascular Problems/Disorders - HX TIA Denies: Hx Hypertension, Hx Pacemaker/ICD, Hx Peripheral Vascular Disease History: Denies: Hx Dialysis, Hx Renal Disease Musculoskeletal History: Reports: Other Musculoskeletal History - MARFAN'S SYNDROME (CONTECTIVE TISSUE DISORDER) Denies: Hx Arthritis, Hx Rheumatoid Arthritis, Hx Osteoporosis Sensory History: Reports: Hx Cataracts, Hx Contacts or Glasses Denies: Hx Hearing Aid Opthamlomology History: Reports: Hx Cataracts, Hx Contacts or Glasses Neurological History: Denies: Hx Headaches, Hx Seizures, Hx Transient Ischemic Attacks (TIA) Psychiatric History: Denies: Hx Anxiety, Hx Panic Disorder - Cancer History Hx Chemotherapy: No Hx Radiation Therapy: No - Surgical History Surgery Procedure, Year, and Place: BL CATARACT SURGERY, 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 Negative: Fever, Chills Negative: Erythema Negative: Sore Throat Positive: Chest Pain - discomfort Negative: Shortness Of Breath, Cough Negative: Abdominal Pain, Vomiting, Nausea Negative: dysuria, hematuria Positive: Other - R shoulder pain. Negative: Edema Negative: Rash Neurological: Other - no dizziness All Other Systems Reviewed And Are Negative: Yes Physical Exam - Summary Physical Exam Summary: Constitutional: Well-developed, Well-nourished, Alert. (-) Distressed Skin: Warm, Dry HENT: Normocephalic; Atraumatic Eyes: Conjunctiva normal Neck: Musculoskeletal ROM normal neck. (-) JVD, (-) Stridor, (-) Tracheal deviation Cardio: Rhythm regular, rate normal, Heart sounds normal; Intact distal pulses; The pedal pulses are 2+ and symmetric. Radial pulses are 2+ and symmetric. (-) Murmur Pulmonary/Chest wall: Effort normal. (-) Respiratory distress, (-) Wheezes, (-) Rales Abd: Soft, (-) epigastric tenderness, (-) Distension, (-) Guarding, (-) Rebound Musculoskeletal: (-) Edema. Full ROM R Shoulder. Lymph: (-) Cervical adenopathy Neuro: Alert, Oriented x3 Psych: Mood and affect Normal Triage Information Reviewed: Yes Vital Signs On Initial Exam: Initial Vitals Temp Pulse Resp BP Pulse Ox 98 F 42 18 104/67 97 08/09/18 16:15 08/09/18 16:15 08/09/18 16:15 08/09/18 16:15 08/09/18 16:15 Vital Signs Reviewed: Yes Diagnostics - Vital Signs Vital Signs Temp Pulse Resp BP Pulse Ox 08/09/18 16:15 98 F 42 18 104/67 97 - Laboratory Result Diagrams: 08/09/18 16:46 08/09/18 16:46 Lab Statement: Any lab studies that have been ordered have been reviewed, and results considered in the medical decision making process. - Radiology CXR Xray Interpretation: No Acute Changes - No active cardiopulmonary disease noted. Radiology Interpretation Completed By: Radiologist - ED physician reviews and agrees - CT CHEST CTA CT Interpretation Completed By: Radiologist - 1. No aortic dissection, aneurysm, or rupture. No pulmonary emboli. 2. Several small thyroid nodules. ACR White Paper guidelines (Lyon JK, et al. JACR 2015;12(2):143-50) suggest that no follow-up is necessary. 3. Cardiomegaly without overt failure. ED Physician reviews and agrees. - EKG 1 EKG Interpretation: 16:20 - AFIB @ 102 BPM. No STEMI. Course/Dx - Course Assessment/Plan: Spoke with Dr. Mcgowan, who accepted the pt for admission. Pt will require IV cardioactive medications fo rrate control and possible conversions. - Diagnoses Provider Diagnoses: Atrial fibrillation with RVR, Chest pain, unspecified - Critical Care Time Critical Care Time: 30-74 min - 45 min Discharge - Sign-Out/Discharge Documenting (check all that apply): Patient Departure - Discharge Plan Condition: Stable Disposition: ADMITTED TO [facility] Referrals: Zulay Kraus MD [Primary Care Provider] - - Attestation Statements Document Initiated by Scribe: Yes Documenting Scribe: Declan Benavidez Provider For Whom Scribe is Documenting (Include Credential): Perico Lopez MD Scribe Attestation: Declan Timmons, scribed for Perico Lopez MD on 08/09/18 at 3098.
[2018-08-09] MEDS ORDERED: Aspirin 81 mg CHEW TAB* 81 MG TAB.CHEW PO ONE (16:37)
--- OUTSIDE RECORDS SUMMARY | 2018-08-09 16:46 | XMS REPORT ---
:1955 External Reference #:[id number] Author Organization [facility] Address [address] [place] [address] [place] [address] Phone [phone] Care Team Providers Name Role Phone Zulay Kraus MD Primary Care Physician Unavailable Payers Type Date Identification Numbers Payment Provider Subscriber Commercial Policy Number: [id number] [facility] Nicky Moore PayID: [id number] [address] [place] [address] Problems Date Description Provider Status Onset: 03/17/2011 Marfan's syndrome Fern Jaen M.D., MIA Active Onset: 03/17/2011 Hypothyroidism Fern Jean M.D., MIA Active Onset: 09/13/2014 Atrial fibrillation Meir Bone M.D., [facility], [facility] Active Onset: 09/13/2014 Mitral valve disorder Meir Bone M.D., [facility], [facility] Active Note: mitral valave insufficiency Onset: 11/07/2014 Osteoporosis Zulay Kraus M.D. Active Onset: 11/07/2014 Scoliosis deformity of spine Zulay Kraus M.D. Active Onset: 02/19/2015 Tendinosis Zulay Kraus M.D. Active Note: rotatot cuff with AC joint OA Onset: 10/10/2015 Thoracic aortic ectasia Meir Bone M.D., [facility], [facility] Active Onset: 10/23/2015 Arachnoid cyst Zulay Kraus, M.D. Active Note: L anterior fossa Onset: 12/18/2015 Disturbance in sleep behavior Yudi Louie MD Active Onset: 11/17/2016 Paroxysmal atrial fibrillation Meir Bone M.D., [facility], Active [facility] Onset: 03/17/2011 Osteochondropathy Fern Jean M.D., FACP Inactive Inactive: 11/07/2014 Onset: 03/17/2011 Pure hypercholesterolemia Fern Jean M.D., FACP Inactive Inactive: 11/07/2014 Family History Date Family Member(s) Problem(s) Comments General Heart Disease : (age 43 Years) Father due to [place] Father due to Marfan's () Mother due to Stroke () : (age 42 Years) First Brother due to Accident First Sister 67 First Sister Chronic Obstructive Pulmonary Disease (COPD) Social History Type Date Description Comments Marital Status Single Lives With Male Partner Occupation [employer] ETOH Use Rarely consumes alcohol Smoking Patient has never smoked Recreational Drug Use Negative For Denies Drug Use Daily Caffeine Consumes on average 2 cups of hot tea per day Exercise Type/Frequency Exercises regularly aqua therapy 2 days a week Allergies, Adverse Reactions, Alerts Date Description Reaction Status Severity Comments 01/23/2010 Sulfa Urticaria active Moderate 09/09/2016 Nickel active Medications Medication Date Status Form Strength Qnty SIG Indications Ordering Provider Cyclobenzaprine 08/05 Active Tablets 5mg 30tab take 1 S13.8xxA Zulay HCL /2017 s tablet Kraus, every 8 M.D. hrs Levothyroxine 10/20 Active Tablets 100mcg 90tab 100 mcg PO E03.9 Zulay Sodium /2016 s Daily x 6 Kraus, Days A M.D. Week Calcium 600 + D 02/04 Active Tablets 600-200mg 1 tab bid Zulay /2015 -Unit Brittney Kraus Potassium 10/23 Active Capsules ER 10Meq 180ca 1 by mouth Meir Chloride ER /2014 ps twice Stefek, daily M.D., [facility], [facility] Magnesium 10/23 Active Tablets 250mg 1 by mouth Zulay /2015 twice Kraus, daily M.D. Metoprolol 12/14 Active Tablets ER 25mg 135ta 1.5 Meir Succinate ER /2014 24HR bs tablets by Stefek, mouth M.D., daily [facility], [facility] Xarelto 10/04 Active Tablets 20mg 90tab 1 by mouth s every day Brittney Bone, [facility], [facility] Selenium Active Tablets 1 po qd Flaxseed Oil Active Capsules 1 po qod Vit C, E, Active once a day Multaq Active Tablets 400mg 180ta take 1 bs tablet by Lizandro, radha M.D., twice a [facility], day [facility] Tramadol HCL Active Tablets 50mg take 1 tablet by mouth every 12 hours if needed for pain Baclofen 07/29 Hx Tablets 10mg 20tab take 12/01 M25.511 Henry s tab every Jesse, [employer] - 8 hours as 08/05 needed for muscle spasm Tramadol HCL 07/29 Hx Tablets 50mg 10tab 1 tablet M25.511 Henry s every 12 Jesse, [employer] - hours as 08/03 needed for pain. Zostavax 10/20 Hx Suspension [id number]/ 1unit sc x1 Rec 0.65ML s Nayana - M.DJan 01/18 Calcium 600 02/04 Hx Tablets 600mg 1 by mouth every day Milly Kraus M.D. 02/04 Oxycodone HCL 10/22 Hx Tablets 5mg 30tab 12/01 to B34.9 s tab for Kraus, pain every M.D. 8 hours as needed Potassium 10/18 Hx Tablets ER 20Meq 2 tab Unknown Chloride daily - 10/23 Malarone 06/13 Hx Tablets 250-100mg 30tab one by Francia s mouth Varn, N.P. - daily 07/13 starting - 2 days before arriving and continue for 7 days after leaving [facility] n Potassium 04/03 Hx Tablets ER 10Meq 180ta 1 tab by Zulay Chloride bs mouth Nayana, - twice a M.D. Alendronate 11/07 Hx Tablets 70mg 12tab take 1 M81.0 Zulay Sodium s tablet by Nayana, - mouth M.D. 10/30 weekly ( Stop taking recently been off for 1 week) Levothyroxine 10/17 Hx Tablets 88mcg 30tab take 1 E03.9 Henry Sodium s tablet by DAVID Molina - mouth once 10/20 Potassium 10/04 Hx Tablets 10Meq 60tab 1 tab by Other s mouth Ordering - twice a Provider Levothyroxine 10/03 Hx Tablets 88mcg 1 by mouth Other every day Ordering - Provider 10/17 Doxycycline 03/[address] 100mg 2caps 1 by mouth 088.81 Fern Hyclate Part twice a Miranda, - day M.D., [facility] 09/12 Doxycycline 06/[address] 100mg 20cap 1 by mouth 088.81 Fern Hyclate Part s twice a Miranda, - day M.D., [facility] 06/23 Citalopram 06/15 Hx Tablets 10mg 90tab take 1 300.00 Fern Hydrobromide s tablet Miranda, - daily M.D., [facility] 09/12 Clonazepam 06/15 Hx Tablets 0.5mg 60tab take 1 300.00 Fern s tablet Miranda, - twice M.D., [facility] 09/12 daily needed Levothyroxine 10/06 Hx Tablets 50mcg 90tab take 1 Francia Sodium s tablet by Anisha, N.P. - mouth once 10/03 Nasonex 06/10 Hx Suspension 50mcg/Act 1unit 2 sprays 477.9 s to each Miranda, - nostril M.D., FACP 09/01 once daily Baby Aspirin 03/19 Hx Chewtabs 81mg 100un 1 tablet its by mouth Miranda, - when M.D., [facility] 12/25 traveling Malarone 10/21 Hx Tablets 250-100mg 27tab take 1 Fern s daily 2d Miranda, - prior to M.D., FACP 03/19 and 7d upon return home Ambien 07/16 Hx Tablets 5mg 20tab 1 tablet Amita s by mouth Cotton, at bedtime M.D. as needed for sleep insomnia Synthroid 07/16 Hx Tablets 50mcg 90tab 1 in the s am Milly Jean M.D., [facility] 10/06 Evista 07/16 Hx Tablets 60mg 90tab take 1 s tablet by Cotton, - mouth once M.D. 11/07 Propranolol HCL 07/16 Hx Tablets 40mg 180ta take 1 bs tablet by Miranda - radha Lugo, [facility] 10/04 twice a day Prednisone 06/25 Hx Tablets 10mg 10tab 1 po qd s Milly Jean M.D., [facility] 03/19 Malarone Hx Tablets 250-100mg 22tab po qd 1 Unknown /0000 s day prior - to travel 03/21 through days after Calcium & Hx Tablets 1 po qd Unknown Magnesium /0000 - 02/04 Levothyroxine Hx Tablets 75mcg take 1 Unknown Sodium /0000 tablet by - mouth once 10/17 Metoprolol Hx Tablets 25mg take 1 Unknown Tartrate /0000 tablet by - mouth 12/14 twice a day Digitek Hx Tablets 250mcg Take 1 Unknown /0000 Tablet By - Mouth 12/25 Daily AT 5PM Amoxicillin/Clav Hx Tablets 875-125mg take 1 Unknown ulanate /0000 tablet by Potassium - mouth 11/16 twice day Medications Administered in Office Medication Date Status Form Strength Qnty SIG Indications Ordering Provider Inj, Administered Injection Edson Vogt Regadenoson, Vera Smith M.D. 0.1 MG Technetium TC Administered Injection Edson Vogt 99M 013 Brittney Smith Tetrofosmin, Per Unit Dose Up To 40 Millicuries Immunizations CPT Code Status Date Vaccine Lot # [id number] Given 07/19/2018 Zoster (Shingles) Vaccine (HZV), Recombinant, Subunit, Adjuvanted 83117 Given 07/19/2018 Zoster (Shingles) Vaccine (HZV), Recombinant, Subunit, Adjuvanted 86373 Given 10/20/2017 Influenza Virus Vaccine, Quadrivalent, Split, [id number] Preservative Free 37223 Given 11/26/2016 Influenza Virus Vaccine, Quadrivalent, Split Virus, Im Use 86179 Given 2015 Influenza Virus Vaccine, Quadrivalent, Split, Preservative Free 94492 Given 10/17/2014 Tdap - Tetanus/Diptheria/Acellular Pertussis [id number] 82412 Given 10/17/2014 Flu Vaccine Split Virus Preservative Free For [id number] Indiv 3Yr Older 78709 Given 09/05/2013 Flu Vaccine Split Virus Preservative Free For [id number] Indiv 3Yr Older [id number] Given 09/01/2012 Fluzone Vaccine [id number] 77128 Given 01/30/2010 Influenza Virus Vaccine, Pandemic Formulation 77236 Given 01/30/2010 Administration Swine Flu Shot 89266 Given 01/05/2009 Influenza Virus 3Yrs & Over 82952 Given 11/24/2006 Influenza Virus 3Yrs & Over 75359 Given 11/24/2006 Influenza Virus 3Yrs & Over 80747 Given 2003 Td Toxoids Adsorbed For Use 7Yrs Or Older For Intramuscular Use Vital Signs Date Vital Result Comment 08/05/2018 Height 70.5 inches 5'10.50" Weight 163.00 lb Heart Rate 71 /min BP Systolic Sitting 82 mmHg BP Diastolic Sitting 60 mmHg O2 % BldC Oximetry 97 % BMI (Body Mass Index) 23.1 kg/m2 07/29/2018 Height 70.5 inches 5'10.50" Weight 163.00 lb Heart Rate 63 /min BP Systolic Sitting 109 mmHg BP Diastolic Sitting 80 mmHg O2 % BldC Oximetry 98 % BMI (Body Mass Index) 23.1 kg/m2 01/19/2018 Height 70.5 inches 5'10.50" Weight 167.00 lb w/ shoes Heart Rate 58 /min BP Systolic Sitting 104 mmHg BP Diastolic Sitting 64 mmHg Respiratory Rate 18 /min BMI (Body Mass Index) 23.6 kg/m2 Ejection Fraction 50-55% echo 11/17/17 11/09/2017 Height 70.5 inches 5'10.50" Weight 162.25 lb with out shoes Heart Rate 58 /min sit and 52 stand BP Systolic Sitting 100 mmHg Lue reg cuff BP Diastolic Sitting 70 mmHg Lue reg cuff BP Systolic Standing 98 mmHg Lue reg cuff BP Diastolic Standing 70 mmHg Lue reg cuff Respiratory Rate 16 /min BMI (Body Mass Index) 22.9 kg/m2 Ejection Fraction 55-60% date 11/14/2016 ECHO 10/20/2017 Weight 163.00 lb Heart Rate 56 /min BP Systolic Sitting 100 mmHg BP Diastolic Sitting 70 mmHg Body Temperature 97.8 F O2 % BldC Oximetry 98 % 05/27/2017 Height 70.5 inches 5'10.50" Weight 164.25 lb Heart Rate 56 /min BP Systolic 106 mmHg BP Diastolic 60 mmHg Body Temperature 97.2 F O2 % BldC Oximetry 98 % BMI (Body Mass Index) 23.2 kg/m2 11/17/2016 Height 70.5 inches 5'10.50" Weight 159.00 lb Heart Rate 54 /min 60 BP Systolic Sitting 100 mmHg left arm, reg cuff BP Diastolic Sitting 70 mmHg left arm, reg cuff BP Systolic Standing 92 mmHg left arm, reg cuff BP Diastolic Standing 70 mmHg left arm, reg cuff Respiratory Rate 16 /min BMI (Body Mass Index) 22.5 kg/m2 Ejection Fraction 55-60% 11/14/16 09/09/2016 Height 70.5 inches 5'10.50" Weight 157.00 lb Heart Rate 68 /min BP Systolic 115 mmHg BP Diastolic 70 mmHg Respiratory Rate 16 /min Body Temperature 97.7 F BMI (Body Mass Index) 22.2 kg/m2 08/21/2016 Weight 157.00 lb Heart Rate 73 /min BP Systolic Sitting 124 mmHg BP Diastolic Sitting 64 mmHg Body Temperature 99.7 F O2 % BldC Oximetry 96 % 02/07/2016 Height 71 inches 5'11" Weight 156.00 lb Heart Rate 54 /min BP Systolic 108 mmHg BP Diastolic 70 mmHg O2 % BldC Oximetry 98 % BMI (Body Mass Index) 21.8 kg/m2 02/05/2016 Height 71 inches 5'11" Weight 156.00 lb Heart Rate 53 /min BP Systolic Sitting 100 mmHg BP Diastolic Sitting 78 mmHg Body Temperature 97.6 F O2 % BldC Oximetry 98 % BMI (Body Mass Index) 21.8 kg/m2 12/18/2015 Height 71 inches 5'11" Weight 154.00 lb Heart Rate 64 /min BP Systolic 98 mmHg BP Diastolic 60 mmHg Respiratory Rate 14 /min O2 % BldC Oximetry 93 % BMI (Body Mass Index) 21.5 kg/m2 Neck Circumference in inches 14 12/03/2015 Height 71 inches 5'11" Weight 152.00 lb Heart Rate 56 /min 60 BP Systolic Sitting 100 mmHg right arm, reg cuff BP Diastolic Sitting 70 mmHg right arm, reg cuff BP Systolic Standing 98 mmHg right arm, reg cuff BP Diastolic Standing 70 mmHg right arm, reg cuff Respiratory Rate 16 /min BMI (Body Mass Index) 21.2 kg/m2 Ejection Fraction 60-65% 03/19/15 10/22/2015 Height 71 inches 5'11" Weight 152.00 lb Heart Rate 68 /min BP Systolic Sitting 124 mmHg BP Diastolic Sitting 72 mmHg Respiratory Rate 15 /min Body Temperature 98.8 F O2 % BldC Oximetry 98 % BMI (Body Mass Index) 21.2 kg/m2 10/10/2015 Height 71 inches 5'11" Weight 151.00 lb Heart Rate 56 /min 58 BP Systolic Sitting 110 mmHg right arm, reg cuff BP Diastolic Sitting 80 mmHg right arm, reg cuff BP Systolic Standing 108 mmHg right arm, reg cuff BP Diastolic Standing 80 mmHg right arm, reg cuff Respiratory Rate 16 /min BMI (Body Mass Index) 21.1 kg/m2 Ejection Fraction 60-65% 03/19/15 09/20/2015 Height 71 inches 5'11" Weight 151.75 lb Heart Rate 62 /min BP Systolic Sitting 102 mmHg BP Diastolic Sitting 68 mmHg Respiratory Rate 16 /min Body Temperature 95.8 F Pain Level 0 general aches and pains O2 % BldC Oximetry 97 % BMI (Body Mass Index) 21.2 kg/m2 02/19/2015 Height 71 inches 5'11" Weight 145.00 lb Pain Level 5 BMI (Body Mass Index) 20.2 kg/m2 02/05/2015 Height 71 inches 5'11" Weight 145.00 lb Heart Rate 54 /min BP Systolic 104 mmHg BP Diastolic 68 mmHg BMI (Body Mass Index) 20.2 kg/m2 12/14/2014 Height 70 inches 5'10" Weight 150.00 lb Heart Rate 74 /min 80 BP Systolic Sitting 106 mmHg right arm, reg cuff BP Diastolic Sitting 64 mmHg right arm, reg cuff BP Systolic Standing 102 mmHg right arm, reg cuff BP Diastolic Standing 70 mmHg right arm, reg cuff Respiratory Rate 20 /min BMI (Body Mass Index) 21.5 kg/m2 11/07/2014 Weight 151.00 lb Heart Rate 62 /min BP Systolic Sitting 118 mmHg BP Diastolic Sitting 66 mmHg 10/17/2014 Height 70 inches 5'10" Weight 150.75 lb Heart Rate 58 /min BP Systolic Sitting 88 mmHg BP Diastolic Sitting 56 mmHg Body Temperature 97.6 F O2 % BldC Oximetry 97 % BMI (Body Mass Index) 21.6 kg/m2 09/13/2014 Height 70.5 inches 5'10.50" Weight 153.00 lb Heart Rate 54 /min 64 BP Systolic Sitting 100 mmHg left arm, reg cuff BP Diastolic Sitting 68 mmHg left arm, reg cuff BP Systolic Standing 86 mmHg left arm, reg cuff BP Diastolic Standing 64 mmHg left arm, reg cuff Respiratory Rate 20 /min BMI (Body Mass Index) 21.6 kg/m2 03/21/2014 Weight 157.00 lb Heart Rate 51 /min BP Systolic Sitting 122 mmHg BP Diastolic Sitting 80 mmHg 09/05/2013 Height 70.5 inches 5'10.50" Weight 155.00 lb Heart Rate 54 /min BP Systolic Sitting 110 mmHg BP Diastolic Sitting 60 mmHg BMI (Body Mass Index) 21.9 kg/m2 06/29/2013 Weight 154.00 lb Heart Rate 54 /min BP Systolic Sitting 124 mmHg BP Diastolic Sitting 80 mmHg 06/23/2013 Weight 154.00 lb Heart Rate 56 /min BP Systolic Sitting 96 mmHg BP Diastolic Sitting 58 mmHg Body Temperature 97.9 F O2 % BldC Oximetry 98 % 06/01/2013 Weight 150.50 lb Heart Rate 52 /min BP Systolic Sitting 98 mmHg BP Diastolic Sitting 60 mmHg Body Temperature 98.4 F 09/01/2012 Height 70.5 inches 5'10.50" Weight 148.25 lb Heart Rate 52 /min BP Systolic Sitting 104 mmHg BP Diastolic Sitting 60 mmHg BMI (Body Mass Index) 21.0 kg/m2 07/05/2012 Height 69.75 inches 5'9.75" Weight 147.00 lb Heart Rate 56 /min BP Systolic Sitting 90 mmHg BP Diastolic Sitting 68 mmHg BMI (Body Mass Index) 21.2 kg/m2 06/15/2012 Height 69.75 inches 5'9.75" Weight 147.00 lb Heart Rate 60 /min BP Systolic Sitting 96 mmHg BP Diastolic Sitting 60 mmHg BMI (Body Mass Index) 21.2 kg/m2 06/10/2011 Height 69.75 inches 5'9.75" Weight 145.00 lb Heart Rate 66 /min BP Systolic Sitting 118 mmHg BP Diastolic Sitting 70 mmHg BMI (Body Mass Index) 21.0 kg/m2 03/19/2011 Height 69.75 inches 5'9.75" Weight 145.00 lb Heart Rate 58 /min BP Systolic Sitting 100 mmHg BP Diastolic Sitting 70 mmHg BMI (Body Mass Index) 21.0 kg/m2 Results Test Date Test Result H/L Range Note Laboratory test finding 02/04/2018 TSH (Thyroid Stim 2.13 mcIU/mL 0.34- 5.60 Horm) Free T4 (Free Thyroxine) 0.93 ng/dL 0.61-1.12 T3 Free 3.10 pg/mL 2.5-3.9 Laboratory test finding 01/08/2018 Troponin-I (TnI) 0.00 ng/mL <0.04 CBC Auto Diff 01/08/2018 White Blood Count 7.3 10^3/uL 3.5-10.8 Red Blood Count 4.72 10^6/uL 4.0-5.4 Hemoglobin 14.1 g/dL 12.0-16.0 Hematocrit 42 % 35-47 Mean Corpuscular Volume 88 fL 80-97 Mean Corpuscular Hemoglobin 30 pg 27-31 Mean Corpuscular HGB Conc 34 g/dL 31-36 Red Cell Distribution Width 14 % 10.5-15 Platelet Count 191 10^3/uL 150-450 Mean Platelet Volume 9 um3 7.4-10.4 Abs Neutrophils 4.6 10^3/uL 1.5-7.7 Abs Lymphocytes 1.8 10^3/uL 1.0-4.8 Abs Monocytes 0.8 10^3/uL 0-0.8 Abs Eosinophils 0.1 10^3/uL 0-0.6 Abs Basophils 0.1 10^3/uL 0-0.2 Abs Nucleated RBC 0 10^3/uL Granulocyte % 62.7 % 38-83 Lymphocyte % 24.1 % Low 25-47 Monocyte % 11.1 % High 1-9 Eosinophil % 1.1 % 0-6 Basophil % 1.0 % 0-2 Nucleated Red Blood Cells % 0 Laboratory test finding 01/08/2018 TSH (Thyroid Stim 2.84 mcIU/mL 0.34- 5.60 Horm) Inr/Protime 01/08/2018 Inr 2.10 High 0.77-1.02 Laboratory test finding 01/08/2018 Partial Thrombo Time 46.4 seconds High 26.0-36.3 PTT Lactic Acid 0.9 mmol/L 0.5-2.0 1 B-Type Natriuretic Peptide BNP 354 pg/mL High 2 Comp Metabolic Panel 01/08/2018 Sodium 133 mmol/L 133-145 Potassium 4.2 mmol/L 3.5-5.0 Chloride 101 mmol/L 101-111 Co2 Carbon Dioxide 27 mmol/L 22-32 Anion Gap 5 mmol/L 2-11 Glucose 108 mg/dL High 70-100 Blood Urea Nitrogen 15 mg/dL 6-24 Creatinine 0.88 mg/dL 0.51-0.95 BUN/Creatinine Ratio 17.0 8-20 Calcium 9.7 mg/dL 8.6-10.3 Total Protein 6.8 g/dL 6.4-8.9 Albumin 3.9 g/dL 3.2-5.2 Globulin 2.9 g/dL 2-4 Albumin/Globulin Ratio 1.3 1-3 Total Bilirubin 0.60 mg/dL 0.2-1.0 Alkaline Phosphatase 40 U/L 34-104 Alt 27 U/L 7-52 Ast 25 U/L 13-39 Egfr Non- 65.3 >60 Egfr 84.0 >60 3 CKMB 01/08/2018 CKMB ng/mL 1.8 ng/mL 0.6-6.3 Laboratory test finding 01/08/2018 Magnesium 1.9 mg/dL 1.9-2.7 Creatine Kinase(CK) 46 U/L 10-223 Troponin-I (TnI) 0.00 ng/mL <0.04 Laboratory test finding 11/20/2017 TSH (Thyroid Stim Horm) 1.54 mcIU/mL 0.34-5.60 T3 Free 3.50 pg/mL 2.5-3.9 Free T4 (Free Thyroxine) 1.19 ng/dL High 0.61-1.12 Laboratory test finding 11/17/2017 Blood Urea Nitrogen BUN 15 mg/dL 6-24 Creatinine 11/17/2017 Creatinine 0.82 mg/dL 0.51-0.95 Egfr Non- 70.9 >60 Egfr 91.1 >60 4 Laboratory test finding 10/13/2017 Troponin-I (TnI) 0.01 ng/mL <0.04 CBC Auto Diff 10/13/2017 White Blood Count 7.4 10^3/uL 3.5-10.8 Red Blood Count 4.67 10^6/uL 4.0-5.4 Hemoglobin 13.9 g/dL 12.0-16.0 Hematocrit 42 % 35-47 Mean Corpuscular Volume 89 fL 80-97 Mean Corpuscular Hemoglobin 30 pg 27-31 Mean Corpuscular HGB Conc 34 g/dL 31-36 Red Cell Distribution Width 14 % 10.5-15 Platelet Count 185 10^3/uL 150-450 Mean Platelet Volume 10 um3 7.4-10.4 Abs Neutrophils 4.2 10^3/uL 1.5-7.7 Abs Lymphocytes 2.2 10^3/uL 1.0-4.8 Abs Monocytes 0.8 10^3/uL 0-0.8 Abs Eosinophils 0.1 10^3/uL 0-0.6 Abs Basophils 0.1 10^3/uL 0-0.2 Abs Nucleated RBC 0 10^3/uL Granulocyte % 56.8 % 38-83 Lymphocyte % 29.7 % 25-47 Monocyte % 11.5 % High 1-9 Eosinophil % 1.2 % 0-6 Basophil % 0.8 % 0-2 Nucleated Red Blood Cells % 0 Laboratory test finding 10/13/2017 Lactic Acid 1.0 mmol/L 0.5-2.0 5 Comp Metabolic Panel 10/13/2017 Sodium 135 mmol/L 133-145 Potassium 4.3 mmol/L 3.5-5.0 Chloride 103 mmol/L 101-111 Co2 Carbon Dioxide 27 mmol/L 22-32 Anion Gap 5 mmol/L 2-11 Glucose 87 mg/dL 70-100 Blood Urea Nitrogen 15 mg/dL 6-24 Creatinine 0.91 mg/dL 0.51-0.95 BUN/Creatinine Ratio 16.5 8-20 Calcium 9.4 mg/dL 8.6-10.3 Total Protein 6.9 g/dL 6.4-8.9 Albumin 3.9 g/dL 3.2-5.2 Globulin 3.0 g/dL 2-4 Albumin/Globulin Ratio 1.3 1-3 Total Bilirubin 0.50 mg/dL 0.2-1.0 Alkaline Phosphatase 32 U/L Low 34-104 Alt 15 U/L 7-52 Ast 18 U/L 13-39 Egfr Non- 62.8 >60 Egfr 80.8 >60 6 Laboratory test finding 10/13/2017 Troponin-I (TnI) 0.00 ng/mL <0.04 Magnesium 2.0 mg/dL 1.9-2.7 D Dimer Quantitative < 200 ng/mL Less Than 230 7 Laboratory test finding 10/13/2017 TSH (Thyroid Stim 7.01 mcIU/mL High 0.34-5.60 Horm) Free T4 (Free Thyroxine) 1.03 ng/dL 0.61-1.12 Basic Metabolic Panel 06/10/2017 Sodium 137 mmol/L 133-145 Potassium 4.1 mmol/L 3.5-5.0 Chloride 105 mmol/L 101-111 Co2 Carbon Dioxide 27 mmol/L 22-32 Anion Gap 5 mmol/L 2-11 Glucose 88 mg/dL 70-100 Blood Urea Nitrogen 12 mg/dL 6-24 Creatinine 0.69 mg/dL 0.51-0.95 BUN/Creatinine Ratio 17.4 8-20 Calcium 9.2 mg/dL 8.6-10.3 Egfr Non- 86.8 >60 Egfr 111.6 >60 8 Laboratory test finding 06/10/2017 Magnesium 1.8 mg/dL Low 1.9-2.7 Lipid Profile (Trig/Chol/HDL) 06/10/2017 Triglycerides 104 mg/dL 9 Cholesterol 182 mg/dL 10 HDL Cholesterol 42.5 mg/dL 11 LDL Cholesterol 119 mg/dL 12 Laboratory test 05/27/2017 Cytology SEE RESULT BELOW 13 finding Laboratory test 02/02/2017 TSH (Thyroid Stim 2.01 mcIU/mL 0.34-5.60 finding Horm) T3 Free 3.40 pg/mL 2.5-3.9 Free T4 (Free Thyroxine) 0.94 ng/dL 0.61-1.12 CBC Auto Diff 08/21/2016 White Blood Count 9.8 10^3/uL 3.5-10.8 Red Blood Count 4.34 10^6/uL 4.0-5.4 Hemoglobin 12.6 g/dL 12.0-16.0 Hematocrit 38 % 35-47 Mean Corpuscular Volume 88 fL 80-97 Mean Corpuscular Hemoglobin 29 pg 27-31 Mean Corpuscular HGB Conc 33 g/dL 31-36 Red Cell Distribution Width 13 % 10.5-15 Platelet Count 240 10^3/uL 150-450 Mean Platelet Volume 9 um3 7.4-10.4 Abs Neutrophils 7.0 10^3/uL 1.5-7.7 Abs Lymphocytes 1.4 10^3/uL 1.0-4.8 Abs Monocytes 1.2 10^3/uL High 0-0.8 Abs Eosinophils 0.1 10^3/uL 0-0.6 Abs Basophils 0.1 10^3/uL 0-0.2 Abs Nucleated RBC 0 10^3/uL Granulocyte % 71.7 % 38-83 Lymphocyte % 14.3 % Low 25-47 Monocyte % 11.9 % High 1-9 Eosinophil % 1.3 % 0-6 Basophil % 0.8 % 0-2 Nucleated Red Blood Cells % 0 Inr/Protime 08/21/2016 Inr 1.21 High 0.89-1.11 Laboratory test finding 08/21/2016 Partial Thrombo Time 33.9 seconds 26.0 -36.3 PTT Lactic Acid 0.8 mmol/L 0.5-2.0 14 Comp Metabolic Panel 08/21/2016 Sodium 134 mmol/L 133-145 Potassium 3.9 mmol/L 3.5-5.0 Chloride 99 mmol/L Low 101-111 Co2 Carbon Dioxide 28 mmol/L 22-32 Anion Gap 7 mmol/L 2-11 Glucose 88 mg/dL 70-100 Blood Urea Nitrogen 12 mg/dL 6-24 Creatinine 0.65 mg/dL 0.51-0.95 BUN/Creatinine Ratio 18.5 8-20 Calcium 8.7 mg/dL 8.6-10.3 Total Protein 6.6 g/dL 6.4-8.9 Albumin 3.3 g/dL 3.2-5.2 Globulin 3.3 g/dL 2-4 Albumin/Globulin Ratio 1.0 1-3 Total Bilirubin 0.50 mg/dL 0.2-1.0 Alkaline Phosphatase 58 U/L 34-104 Alt 17 U/L 7-52 Ast 17 U/L 13-39 Egfr Non- 93.3 >60 Egfr 120.0 >60 15 Laboratory test finding 08/21/2016 Lipase 36 U/L 11.0-82.0 C Reactive Protein 78.75 mg/L High < 5.00 16 Urinalysis Profile 08/21/2016 Urine Color Colorless Urine Appearance Clear Urine Specific Mitchell 1.014 1.010-1.030 Urine pH 7.0 5-9 Urine Urobilinogen Negative Negative Urine Ketones Negative Negative Urine Protein Negative Negative Urine Leukocytes Negative Negative Urine Blood 1+ Negative Urine Nitrite Negative Negative Urine Bilirubin Negative Negative Urine Glucose Negative Negative Urine White Blood Cell Absent Absent Urine Red Blood Cell Trace(0-2/hpf) Absent Urine Bacteria Absent Absent Laboratory test finding 08/21/2016 Blood Culture SEE RESULT BELOW 17 Urine Culture And 08/21/2016 Urine Culture SEE RESULT BELOW 18 Sensitivities Laboratory test finding 08/21/2016 Cytology Non-[employer] SEE RESULT BELOW 19 CBC Auto Diff 08/21/2016 White Blood Count 10.4 10^3/uL 3.5-10.8 Red Blood Count 4.49 10^6/uL 4.0-5.4 Hemoglobin 12.9 g/dL 12.0-16.0 Hematocrit 39 % 35-47 Mean Corpuscular Volume 88 fL 80-97 Mean Corpuscular Hemoglobin 29 pg 27-31 Mean Corpuscular HGB Conc 33 g/dL 31-36 Red Cell Distribution Width 13 % 10.5-15 Platelet Count 235 10^3/uL 150-450 Mean Platelet Volume 8 um3 7.4-10.4 Abs Neutrophils 7.0 10^3/uL 1.5-7.7 Abs Lymphocytes 1.6 10^3/uL 1.0-4.8 Abs Monocytes 1.6 10^3/uL High 0-0.8 Abs Eosinophils 0.1 10^3/uL 0-0.6 Abs Basophils 0.1 10^3/uL 0-0.2 Abs Nucleated RBC 0 10^3/uL Granulocyte % 67.0 % 38-83 Lymphocyte % 15.1 % Low 25-47 Monocyte % 15.5 % High 1-9 Eosinophil % 1.4 % 0-6 Basophil % 1.0 % 0-2 Nucleated Red Blood Cells % 0 Basic Metabolic Panel 08/21/2016 Sodium 135 mmol/L 133-145 Potassium 4.3 mmol/L 3.5-5.0 Chloride 99 mmol/L Low 101-111 Co2 Carbon Dioxide 29 mmol/L 22-32 Anion Gap 7 mmol/L 2-11 Glucose 73 mg/dL 70-100 Blood Urea Nitrogen 14 mg/dL 6-24 Creatinine 0.72 mg/dL 0.51-0.95 BUN/Creatinine Ratio 19.4 8-20 Calcium 8.9 mg/dL 8.6-10.3 Egfr Non- 82.9 >60 Egfr 106.6 >60 20 Ua Routine 08/21/2016 Ua Specific Mitchell 1.010 Ua PH 5 Ua Color yellow Ua Appera clear Ua WBC neg Ua Protein neg Ua Glucose normal Ua Ketones neg Ua Bilirubin neg Ua Urobilinogen normal Ua Nitrite neg Ua Occult Blood about 250 Laboratory test finding 02/05/2016 Hepatitis C Antibody Nonreactive Nonreactive Basic Metabolic Panel 02/05/2016 Sodium 136 mmol/L 133-145 Potassium 4.3 mmol/L 3.5-5.0 Chloride 102 mmol/L 101-111 Co2 Carbon Dioxide 31 mmol/L 22-32 Anion Gap 3 mmol/L 2-11 Glucose 86 mg/dL 70-100 Blood Urea Nitrogen 15 mg/dL 6-24 Creatinine 0.61 mg/dL 0.51-0.95 BUN/Creatinine Ratio 24.6 High 8-20 Calcium 9.3 mg/dL 8.6-10.3 Egfr Non- 100.4 >60 Egfr 129.1 >60 21 Laboratory test finding 02/05/2016 Magnesium 1.9 mg/dL 1.9-2.7 Basic Metabolic Panel 11/16/2015 Sodium 136 mmol/L 133-145 Potassium 4.7 mmol/L 3.5-5.0 Chloride 102 mmol/L 101-111 Co2 Carbon Dioxide 29 mmol/L 22-32 Anion Gap 5 mmol/L 2-11 Glucose 82 mg/dL 70-100 Blood Urea Nitrogen 16 mg/dL 6-24 Creatinine 0.66 mg/dL 0.51-0.95 BUN/Creatinine Ratio 24.2 High 8-20 Calcium 9.4 mg/dL 8.6-10.3 Egfr Non- 91.7 >60 Egfr 117.9 >60 22 Laboratory test finding 11/16/2015 Magnesium 1.8 mg/dL Low 1.9-2.7 Digoxin 0.5 ng/ml Low 0.8-2.0 Comp Metabolic Panel 10/22/2015 Sodium 133 mmol/L 133-145 Potassium 4.1 mmol/L 3.5-5.0 Chloride 97 mmol/L Low 101-111 Co2 Carbon Dioxide 30 mmol/L 22-32 Anion Gap 6 mmol/L 2-11 Glucose 135 mg/dL High 70-100 Blood Urea Nitrogen 12 mg/dL 6-24 Creatinine 0.70 mg/dL 0.51-0.95 BUN/Creatinine Ratio 17.1 8-20 Calcium 9.5 mg/dL 8.6-10.3 Total Protein 7.0 g/dL 6.4-8.9 Albumin 4.0 g/dL 3.2-5.2 Globulin 3.0 g/dL 2-4 Albumin/Globulin Ratio 1.3 1-3 Total Bilirubin 1.20 mg/dL High 0.2-1.0 Alkaline Phosphatase 50 U/L 34-104 Alt 60 U/L High 7-52 Ast 39 U/L 13-39 Egfr Non- 85.6 >60 Egfr 110.1 >60 23 Laboratory test finding 10/22/2015 Magnesium 1.8 mg/dL Low 1.9-2.7 Coxsackie A 10/22/2015 Coxsackie Virus Type A(2) <1:8 Ab Coxsackie Virus Type A(4) Ab <1:8 Coxsackie Virus Type A(7) Ab <1:8 Coxsackie Virus Type A(9) AB <1:8 Coxsackie Virus Type A(10) Ab <1:8 Coxsackie Virus Type A(16) Ab <1:8 24 Ahrrison Lux Comprehensive 10/22/2015 Ebv Capsid Ag IgG Ab Positive Negative Ebv Capsid Ag IgM Ab Negative Negative Harrison-Lux Nuclear Antigen Positive Negative Harrison-Lux Virus Interp See Comment 25 Laboratory test finding 10/22/2015 Digoxin 0.8 ng/ml 0.8-2.0 Laboratory test finding 10/18/2015 Magnesium 1.8 mg/dL Low 1.9-2.7 Troponin-I (TnI) 0.00 ng/mL <0.03 26 TSH (Thyroid Stim Horm) 1.39 ?IU/mL 0.34-5.60 Comp Metabolic Panel 10/18/2015 Sodium 135 mmol/L 133-145 Potassium 3.6 mmol/L 3.5-5.0 Chloride 103 mmol/L 101-111 Co2 Carbon Dioxide 28 mmol/L 22-32 Anion Gap 4 mmol/L 2-11 Glucose 104 mg/dL High 70-100 Blood Urea Nitrogen 10 mg/dL 6-24 Creatinine 0.67 mg/dL 0.51-0.95 BUN/Creatinine Ratio 14.9 8-20 Calcium 9.2 mg/dL 8.6-10.3 Total Protein 6.6 g/dL 6.4-8.9 Albumin 3.8 g/dL 3.2-5.2 Globulin 2.8 g/dL 2-4 Albumin/Globulin Ratio 1.4 1-3 Total Bilirubin 0.70 mg/dL 0.2-1.0 Alkaline Phosphatase 46 U/L 34-104 Alt 97 U/L High 7-52 Ast 78 U/L High 13-39 Egfr Non- 90.1 >60 Egfr 115.9 >60 27 Laboratory test finding 10/18/2015 Lactic Acid 0.8 mmol/L 0.5-2.2 CBC Auto Diff 10/18/2015 White Blood Count 6.3 10^3/uL 4.8-10.8 Red Blood Count 4.95 10^6/uL 4.0-5.4 Hemoglobin 14.5 g/dL 12.0-16.0 Hematocrit 45 % 35-47 Mean Corpuscular Volume 90 fL 80-97 Mean Corpuscular Hemoglobin 29 pg 27-31 Mean Corpuscular HGB Conc 32 g/dL 31-36 Red Cell Distribution Width 13 % 10.5-15 Platelet Count 159 10^3/uL 150-450 Mean Platelet Volume 9 um3 7.4-10.4 Abs Neutrophils 4.1 10^3/uL 1.5-7.7 Abs Lymphocytes 1.1 10^3/uL 1.0-4.8 Abs Monocytes 0.8 10^3/uL 0-0.8 Abs Eosinophils 0.1 10^3/uL 0-0.6 Abs Basophils 0.2 10^3/uL 0-0.2 Abs Nucleated RBC 0 10^3/uL Granulocyte % 64.8 % 38-83 Lymphocyte % 17.6 % Low 25-47 Monocyte % 13.0 % High 1-9 Eosinophil % 1.3 % 0-6 Basophil % 3.3 % High 0-2 Nucleated Red Blood Cells % 0 Basic Metabolic Panel 12/17/2014 Sodium 134 mmol/L 133-145 Potassium 4.1 mmol/L 3.5-5.0 Chloride 103 mmol/L 101-111 Co2 Carbon Dioxide 30 mmol/L 22-32 Anion Gap 1 mmol/L Low 2-11 Glucose 72 mg/dL 70-100 Blood Urea Nitrogen 17 mg/dL 6-24 Creatinine 0.76 mg/dL 0.51-0.95 BUN/Creatinine Ratio 22.4 High 8-20 Calcium 9.1 mg/dL 8.6-10.3 Egfr Non- 78.2 >60 Egfr 100.5 >60 28 Basic Metabolic Panel 12/16/2014 Sodium 134 mmol/L 133-145 Potassium 4.1 mmol/L 3.5-5.0 Chloride 103 mmol/L 101-111 Co2 Carbon Dioxide 30 mmol/L 22-32 Anion Gap 1 mmol/L Low 2-11 Glucose 72 mg/dL 70-100 Blood Urea Nitrogen 17 mg/dL 6-24 Creatinine 0.76 mg/dL 0.51-0.95 BUN/Creatinine Ratio 22.4 High 8-20 Calcium 9.1 mg/dL 8.6-10.3 Egfr Non- 78.2 >60 Egfr 100.5 >60 29 Laboratory test finding 11/13/2014 TSH (Thyroid Stimulating 1.75 IU/mL 0.34-5.60 Horm) Free T3 2.80 pg/mL 2.5-3.9 Free T4 0.93 ng/mL 0.61-1.12 Vitamin D, 25 Hydroxy 11/13/2014 25-Hydroxy Vitamin D2 4.5 ng/mL 25-Hydroxy Vitamin D3 32 ng/mL 25-Hydroxy Vitamin D Total 37 ng/mL 30 Pthi 11/13/2014 PTH Intact 3.4 pmol/L 1.3-9.3 Calcium (PTH Intact) 9.0 mg/dL 8.6-10.3 Laboratory test finding 10/20/2014 Rapid Influenza A B (SEE NOTE) 31 Antigen CBC Auto Diff 10/20/2014 White Blood Count 4.6 10^3/uL Low 4.8-10.8 Red Blood Count 4.24 10^6/uL 4.0-5.4 Hemoglobin 13.0 g/dL 12.0-16.0 Hematocrit 39 % 35-47 Mean Corpuscular Volume 92 fL 80-97 Mean Corpuscular Hemoglobin 31 pg 27-31 Mean Corpuscular HGB Conc 33 g/dL 31-36 Red Cell Distribution Width 13 % 10.5-15 Platelet Count 125 10^3/uL Low 150-450 Mean Platelet Volume 10 um3 7.4-10.4 Abs Neutrophils 3.5 10^3/uL 1.5-7.7 Abs Lymphocytes 0.4 10^3/uL Low 1.0-4.8 Abs Monocytes 0.6 10^3/uL 0-0.8 Abs Eosinophils 0 10^3/uL 0-0.6 Abs Basophils 0 10^3/uL 0-0.2 Abs Nucleated RBC 0 10^3/uL Granulocyte % 75.6 % 38-83 Lymphocyte % 9.8 % Low 25-47 Monocyte % 13.7 % High 1-9 Eosinophil % 0.6 % 0-6 Basophil % 0.3 % 0-2 Nucleated Red Blood Cells % 0.1 Basic Metabolic Panel 10/20/2014 Sodium 130 mmol/L Low 133-145 Potassium 3.9 mmol/L 3.5-5.0 32 Chloride 98 mmol/L Low 101-111 Co2 Carbon Dioxide 26 mmol/L 22-32 Anion Gap 6 mmol/L 2-11 Glucose 80 mg/dL 70-100 Blood Urea Nitrogen 9 mg/dL 6-24 Creatinine 0.68 mg/dL 0.51-0.95 BUN/Creatinine Ratio 13.2 8-20 Calcium 8.6 mg/dL 8.6-10.3 Egfr Non- 88.9 >60 Egfr 114.3 >60 33 Laboratory test finding 10/17/2014 Cytology RUN DATE: 10/18/ <SEE NOTE> 34 Human Papilloma Virus Rna Negative Negative 35 Laboratory test finding 10/13/2014 TSH (Thyroid Stimulating 4.13 IU/mL 0.34-5.60 Horm) Free T3 2.60 pg/mL 2.5-3.9 Free T4 0.94 ng/mL 0.61-1.12 CBC Auto Diff 09/29/2014 White Blood Count 9.4 10^3/uL 4.8-10.8 Red Blood Count 4.55 10^6/uL 4.0-5.4 Hemoglobin 14.0 g/dL 12.0-16.0 Hematocrit 42 % 35-47 Mean Corpuscular Volume 92 fL 80-97 Mean Corpuscular Hemoglobin 31 pg 27-31 Mean Corpuscular HGB Conc 34 g/dL 31-36 Red Cell Distribution Width 13 % 10.5-15 Platelet Count 190 10^3/uL 150-450 Mean Platelet Volume 9 um3 7.4-10.4 Abs Neutrophils 5.6 10^3/uL 1.5-7.7 Abs Lymphocytes 2.5 10^3/uL 1.0-4.8 Abs Monocytes 1.0 10^3/uL High 0-0.8 Abs Eosinophils 0.2 10^3/uL 0-0.6 Abs Basophils 0.1 10^3/uL 0-0.2 Abs Nucleated RBC 0.01 10^3/uL Granulocyte % 60.0 % 38-83 Lymphocyte % 26.3 % 25-47 Monocyte % 10.2 % High 1-9 Eosinophil % 2.6 % 0-6 Basophil % 0.9 % 0-2 Nucleated Red Blood Cells % 0.1 Comp Metabolic Panel 09/29/2014 Sodium 138 mmol/L 133-145 Potassium 4.1 mmol/L 3.7-5.6 Chloride 103 mmol/L 101-111 Co2 Carbon Dioxide 28 mmol/L 22-32 Anion Gap 7 mmol/L 2-11 Glucose 102 mg/dL High 70-100 Blood Urea Nitrogen 14 mg/dL 6-24 Creatinine 0.83 mg/dL 0.51-0.95 BUN/Creatinine Ratio 16.9 8-20 Calcium 9.4 mg/dL 8.6-10.3 Total Protein 6.5 g/dL 6.4-8.9 Albumin 3.9 g/dL 3.2-5.2 Globulin 2.6 g/dL 2-4 Albumin/Globulin Ratio 1.5 1-3 Total Bilirubin 0.50 mg/dL 0.2-1.0 Alkaline Phosphatase 32 U/L Low 34-104 Alt 13 U/L 7-52 Ast 18 U/L 13-39 Egfr Non- 70.6 >60 Egfr 90.8 >60 36 Laboratory test finding 09/29/2014 Magnesium 1.9 mg/dL 1.9-2.7 Troponin I 0.00 ng/mL <0.03 37 TSH (Thyroid Stimulating Horm) 6.43 IU/mL High 0.34-5.60 Laboratory test finding 11/01/2013 CRP High Sensitivity 0.8 mg/L 38 Comp Metabolic Panel 11/01/2013 Sodium 137 mmol/L 133-145 Potassium 4.3 mmol/L 3.5-5.0 Chloride 102 mmol/L 101-111 Co2 Carbon Dioxide 31.0 mmol/L 22-32 Anion Gap 4.0 mmol/L 2-11 Glucose 88 mg/dL 70-100 Blood Urea Nitrogen 11 mg/dL 6-24 Creatinine 0.70 mg/dL 0.50-1.40 BUN/Creatinine Ratio 15.7 8-20 Calcium 9.2 mg/dL 8.1-9.9 Total Protein 6.4 g/dL 6.2-8.1 Albumin 3.9 g/dL 3.6-5.4 Globulin 2.5 g/dL 2-4 Albumin/Globulin Ratio 1.6 1-3 Total Bilirubin 1.1 mg/dL 0.4-1.5 Alkaline Phosphatase 38 U/L 30-110 Alt 16 U/L 14-54 Ast 23 U/L 12-42 Egfr Non- 86.2 >60 Egfr 110.9 >60 39 Lipid Profile (Trig/Chol/HDL) 11/01/2013 Triglycerides 98 mg/dL 40-200 Cholesterol 208 mg/dL High Less than 200 HDL Cholesterol 64 mg/dL High 40-60 40 Cholesterol/HDL Ratio 3.3 Average 1-4.44 LDL Cholesterol 124.4 High Less Than 100 41 Laboratory test 11/01/2013 TSH (Thyroid 6.00 miu/mL High 0.34-5.60 finding Stimulating Horm) Free T4 0.84 ng/mL 0.61-1.24 Laboratory test 09/05/2013 Cytology RUN DATE: finding <SEE NOTE> Laboratory test 06/23/2013 Erythrocyte Sed Rate 11 mm/Hr 0-30 finding CBC Auto Diff 06/23/2013 White Blood Count 7.1 10^3/uL 4.8-10.8 Red Blood Count 4.44 10^6/uL 4.0-5.4 Hemoglobin 13.7 g/dL 12.0-16.0 Hematocrit 41 % 35-47 Mean Corpuscular Volume 93 fL 80-97 Mean Corpuscular Hemoglobin 31 pg 27-31 Mean Corpuscular HGB Conc 33 g/dL 31-36 Red Cell Distribution Width 13 % 10.5-15 Platelet Count 181 10^3/uL 150-450 Mean Platelet Volume 10 um3 7.4-10.4 Abs Neutrophils 4.3 10^3/uL 1.5-7.7 Abs Lymphocytes 1.9 10^3/uL 1.0-4.8 Abs Monocytes 0.7 10^3/uL 0-0.8 Abs Eosinophils 0.2 10^3/uL 0-0.6 Abs Basophils 0.1 10^3/uL 0-0.2 Abs Nucleated RBC 0 10^3/uL Granulocyte % 60.4 % 38-83 Lymphocyte % 26.7 % 25-47 Monocyte % 9.6 % High 1-9 Eosinophil % 2.6 % 0-6 Basophil % 0.7 % 0-2 Nucleated Red Blood Cells % 0 Laboratory test finding 06/23/2013 Troponin I 0.03 ng/mL 0-0.06 43 TSH (Thyroid Stimulating Horm) 5.87 miu/mL High 0.34-5.60 C Reactive Protein 0.5 mg/dL Less than 0.5 CKMB 06/23/2013 CKMB ng/mL 2.5 ng/mL 0.3-4.0 44 Laboratory test finding 06/23/2013 Magnesium 2.1 mg/dL 1.7-2.6 Creatine Kinase 60 U/L 0-200 Comp Metabolic Panel 06/23/2013 Sodium 136 mmol/L 133-145 Potassium 4.3 mmol/L 3.5-5.0 Chloride 101 mmol/L 101-111 Co2 Carbon Dioxide 30.0 mmol/L 22-32 Anion Gap 5.0 mmol/L 2-11 Glucose 134 mg/dL High 70-100 Blood Urea Nitrogen 16 mg/dL 6-24 Creatinine 0.80 mg/dL 0.50-1.40 BUN/Creatinine Ratio 20.0 8-20 Calcium 9.2 mg/dL 8.1-9.9 Total Protein 6.6 g/dL 6.2-8.1 Albumin 3.8 g/dL 3.6-5.4 Globulin 2.8 g/dL 2-4 Albumin/Globulin Ratio 1.4 1-3 Total Bilirubin 0.8 mg/dL 0.4-1.5 Alkaline Phosphatase 41 U/L 30-110 Alt 17 U/L 14-54 Ast 22 U/L 12-42 Egfr Non- 74.2 >60 Egfr 95.4 >60 45 Laboratory test finding 06/23/2013 Inr 0.86 Low 0.87-0.97 Activated Partial Thrombo Time 30.7 seconds 22.18-37.18 Lyme Western Blot 06/01/2013 Lyme Disease IgG Ab WB Negative Negative Lyme Disease IgG Bands Present p41, kDa Lyme Disease IgM Ab WB Positive Negative Lyme Disease IgM Bands Present p41, p23, kDa Lyme Disease Interpretation See Comment 46 Laboratory test finding 06/01/2013 Lyme Disease Serology Positive Negative 47 Laboratory test finding 09/09/2012 CRP High Sensitivity 1.1 mg/L 48 Laboratory test finding 09/09/2012 TSH (Thyroid Stimulating 5.50 MIU/ML 0.34-5.60 49 Horm) Free T4 0.77 NG/ML 0.61-1.24 50 Lipid Profile (Trig/Chol/HDL) 09/09/2012 Triglycerides 62 mg/dL 40-200 Cholesterol 170 mg/dL Less than 200 51 HDL Cholesterol 57 mg/dL 40-60 52 Cholesterol/HDL Ratio 3.0 AVERAGE 1-4.44 LDL Cholesterol 100.6 mg/dL High Less Than 100 Comp Metabolic Panel 09/09/2012 Sodium 137 mmol/L 133-145 Potassium 4.5 mmol/L 3.5-5.0 Chloride 106 mmol/L 101-111 Co2 Carbon Dioxide 30.0 mmol/L 22-32 Anion Gap 1.0 mmol/L Low 2-11 Glucose 89 mg/dL 70-100 Blood Urea Nitrogen 18 mg/dL 6-24 Creatinine 0.70 mg/dL 0.50-1.40 BUN/Creatinine Ratio 25.7 High 8-20 Calcium 8.8 mg/dL 8.1-9.9 Total Protein 5.7 GM/DL Low 6.2-8.1 Albumin 3.7 GM/DL 3.6-5.4 Globulin 2.0 GM/DL 2-4 Albumin/Globulin Ratio 1.9 1-3 Total Bilirubin 1.0 mg/dL 0.1-1.0 53 Alkaline Phosphatase 38 U/L 30-110 Alt 16 U/L 14-54 Ast 24 U/L 12-42 Egfr Non- 86.6 >60 Egfr 111.3 >60 54 Vitamin D, 25 Hydroxy 09/09/2012 25-Hydroxy Vitamin D2 6.3 ng/mL 25-Hydroxy Vitamin D3 25 ng/mL 25-Hydroxy Vitamin D Total 31 ng/mL 55 Ua Routine 09/01/2012 Ua Specific Mitchell 1.005 Ua PH 7 Ua Color pale yellow Ua Appera clear Ua WBC neg Ua Protein neg Ua Glucose neg Ua Ketones neg Ua Bilirubin neg Ua Urobilinogen neg Ua Nitrite neg Ua Occult Blood Non hem trace Laboratory test finding 09/01/2012 Cytology RUN DATE: 09/02/ <SEE 56 NOTE> Laboratory test finding 06/15/2012 TSH 5.43 MIU/ML 0.34-5.60 Magnesium 2.1 mg/dL 1.7-2.6 Basic Metabolic Panel 06/15/2012 Sodium 137 mmol/L 135-145 Potassium 4.3 mmol/L 3.5-5.0 Chloride 103 mmol/L 101-111 Co2 (Carbon Dioxide) 28.0 mmol/L 22-32 Anion Gap 6.0 mmol/L 2-11 57 Glucose 95 mg/dL 70-100 BUN 16 mg/dL 6-24 Creatinine 0.7 mg/dL 0.50-1.40 One Over Creatinine 1.42 BUN/Creatinine Ratio 22.9 High 8-20 eGFR Non- 86.9 > 60 eGFR 111.7 > 60 58 Laboratory test finding 06/15/2012 Calcium 9.3 mg/dL 8.1-9.9 Laboratory test finding 06/10/2011 TSH 4.68 MIU/ML 0.34-5.60 Thyroxine Free 0.86 ng/dL 0.61-1.24 Laboratory test finding 06/10/2011 Cytology <SEE NOTE> 59 1 [facility] Severe Sepsis and Septic Shock Management Bundle Measure requires all lactic acids initially measuring >2.0 mmol/L be repeated. 2 >100 to <200 pg/mL: likely compensated congestive heart failure (CHF) 200 to 400 pg/mL: likely moderate CHF >400 pg/mL: likely moderate to severe CHF 3 Because ethnic data is not always readily available, this report includes an eGFR for both -Americans and non- Americans. The National Kidney Disease Education Program (NKDEP) does not endorse the use of the MDRD equation for patients that are not between the ages of 18 and 70, are , have extremes of body size, muscle mass, or nutritional status, or are non- or non-. According to the National Kidney Foundation, irrespective of diagnosis, the stage of the disease is based on the level of kidney function: Stage Description GFR(mL/min/1.73 m(2)) 1 Kidney damage with normal or decreased GFR 90 2 Kidney damage with mild decrease in GFR 60-89 3 Moderate decrease in GFR 30-59 4 Severe decrease in GFR 15-29 5 Kidney failure <15 (or dialysis) 4 Because ethnic data is not always readily available, this report includes an eGFR for both -Americans and non- Americans. The National Kidney Disease Education Program (NKDEP) does not endorse the use of the MDRD equation for patients that are not between the ages of 18 and 70, are , have extremes of body size, muscle mass, or nutritional status, or are non- or non-. According to the National Kidney Foundation, irrespective of diagnosis, the stage of the disease is based on the level of kidney function: Stage Description GFR(mL/min/1.73 m(2)) 1 Kidney damage with normal or decreased GFR 90 2 Kidney damage with mild decrease in GFR 60-89 3 Moderate decrease in GFR 30-59 4 Severe decrease in GFR 15-29 5 Kidney failure <15 (or dialysis) 5 [facility] Severe Sepsis and Septic Shock Management Bundle Measure requires all lactic acids initially measuring >2.0 mmol/L be repeated. 6 Because ethnic data is not always readily available, this report includes an eGFR for both -Americans and non- Americans. The National Kidney Disease Education Program (NKDEP) does not endorse the use of the MDRD equation for patients that are not between the ages of 18 and 70, are , have extremes of body size, muscle mass, or nutritional status, or are non- or non-. According to the National Kidney Foundation, irrespective of diagnosis, the stage of the disease is based on the level of kidney function: Stage Description GFR(mL/min/1.73 m(2)) 1 Kidney damage with normal or decreased GFR 90 2 Kidney damage with mild decrease in GFR 60-89 3 Moderate decrease in GFR 30-59 4 Severe decrease in GFR 15-29 5 Kidney failure <15 (or dialysis) 7 Please note: The following may produce a false positive D Dimer test: - Rheumatoid factor greater than 60 IU/ml - Plasma hemoglobin greater than 0.05 gm/dl - Bilirubin greater than 50 mg/dl - Lipids greater than 1000 mg/dl - FDP greater than 20 ug/ml 8 Because ethnic data is not always readily available, this report includes an eGFR for both -Americans and non- Americans. The National Kidney Disease Education Program (NKDEP) does not endorse the use of the MDRD equation for patients that are not between the ages of 18 and 70, are , have extremes of body size, muscle mass, or nutritional status, or are non- or non-. According to the National Kidney Foundation, irrespective of diagnosis, the stage of the disease is based on the level of kidney function: Stage Description GFR(mL/min/1.73 m(2)) 1 Kidney damage with normal or decreased GFR 90 2 Kidney damage with mild decrease in GFR 60-89 3 Moderate decrease in GFR 30-59 4 Severe decrease in GFR 15-29 5 Kidney failure <15 (or dialysis) 9 Desirable <150 Borderline high 150-199 High 200-499 Very High >500 10 Desirable <200 Borderline high 200-239 High >239 11 Low <40 Desirable: 40-60 High: >60 12 Desirable: <100 mg/dL Near Optimal: 100-129 mg/dL Borderline High: 130-159 mg/dL High: 160-189 mg/dL Very High: >189 mg/dL 13 SEE RESULT BELOW Name: NICKY MOORE : [address]: Zulay Kraus MD Acct: [id number] Unit: [id number] AGE: 61 Location: [facility] Re05/27/17 SEX: F Status: REG REF SPEC: [id number] CHRIS: 05/27/17-1206 [facility] [place] DR: Zulay Kraus MD REQ: [id number] RECD: 05/27/17-1848 STATUS: SOUT _ ORDERED: TP IMAGE ANAL, HPV 16/18 GENE COMMENTS: [id number] FINAL DIAGNOSIS Negative for Intraepithelial lesion or Malignancy A. Ectocervical/Endocervical Specimen Adequacy: Satisfactory of evaluation Transformation zone component cannot be definitely identified due to presence of atrophy or other hormonal changes Patient Information: HPV: Thin Layer Pap Test w/reflex to high risk HPV RNA testing when ASCUS HPV 16/18 Genotype Reflex Actual Specimen Date: 05/27/17 Post Menopausal?: Y Signed (signature on file) DESTIN Hu(ASCP) 05/28 1346 This Pap test was evaluated with the assistance of the [employer] Test Imaging System. Due to cytologic findings at the material control analyst microscope, comprehensive manual rescreening by a Mold Yard Supervisor may be required. The Pap Smear is a screening test designed to aid in the detection of premalignant and malignant conditions of the uterine cervix. It is not a diagnostic procedure and should not be used as the sole means of detecting cervical cancer. Both false- positive and false- negative reports do occur. Depending on your risk status, a Pap smear should be obtained and evaluated every 1-3 years. END OF REPORT * ML=Testing performed at Main Lab DEPARTMENT OF PATHOLOGY, [address] [place] [address] Uziel South M.D. Director [facility] # [id number] 14 [facility] Severe Sepsis and Septic Shock Management Bundle Measure requires all lactic acids initially measuring >2.0 mmol/L be repeated. 15 Because ethnic data is not always readily available, this report includes an eGFR for both -Americans and non- Americans. The National Kidney Disease Education Program (NKDEP) does not endorse the use of the MDRD equation for patients that are not between the ages of 18 and 70, are , have extremes of body size, muscle mass, or nutritional status, or are non- or non-. According to the National Kidney Foundation, irrespective of diagnosis, the stage of the disease is based on the level of kidney function: Stage Description GFR(mL/min/1.73 m(2)) 1 Kidney damage with normal or decreased GFR 90 2 Kidney damage with mild decrease in GFR 60-89 3 Moderate decrease in GFR 30-59 4 Severe decrease in GFR 15-29 5 Kidney failure <15 (or dialysis) 16 Acute inflammation: >10.00 17 SEE RESULT BELOW Name: NICKY MOORE : [address]: Darian Agosto MD Acct: [id number] Unit: [id number] AGE: 60 Location: [place] [address] Re08/21/16 Dis: 08/25/16 SEX: F Status: DIS IN SPEC: [id number] CHRIS: 08/21/16-1929 [facility] [place] DR: Dick Rice MD REQ: [id number] RECD: 08/21/16 STATUS: COMP [facility] DR: Zulay Kraus MD _ SOURCE: BLOOD,VENO SPDESC: ORDERED: Blood Cult Procedure Result Reported Site Aerobic Culture Bottle Final 08/26/16- 1939 ML No Growth Day 5 Anaerobic Culture Bottle Final 08/26/16- 1939 ML No Growth Day 5 * ML - MAIN LAB ([facility]) . END OF REPORT * ML=Testing performed at Main Lab DEPARTMENT OF PATHOLOGY, [address] [place] [address] Uziel South M.D. Director [facility] # [id number] 18 SEE RESULT BELOW Name: NICKY MOORE : [address]: Gorge Gipson NP Acct: [id number] Unit: [id number] AGE: 60 Location: [facility] Re08/21/16 SEX: F Status: REG REF SPEC: [id number] CHRIS: 08/21/16-[address]: Gorge Gipson WATER TESTER REQ: [id number] RECD: 08/21/16 STATUS: COMP _ SOURCE: URINE SPDESC: ORDERED: Urine Culture COMMENTS: [id number] Procedure Result Reported Site Urine Culture Final 08/22/16- 1607 ML No Growth (<1,000 CFU/mL) * ML - MAIN LAB ([facility]) . END OF REPORT * ML=Testing performed at Main Lab DEPARTMENT OF PATHOLOGY, [address] [place] [address] Uziel South M.D. Director [facility] # [id number] 19 SEE RESULT BELOW Name: NICKY MOORE : [address]: Gorge Gipson WATER TESTER Acct: [id number] Unit: [id number] AGE: 60 Location: [facility] Re08/21/16 SEX: F Status: REG REF SPEC: [id number] CHRIS: 08/21/16-1502 [facility] [place] DR: Gorge Gipson WATER TESTER REQ: [id number] RECD: 08/21/16644 STATUS: SOUT _ ORDERED: THIN PREP NON G COMMENTS: [id number] FINAL DIAGNOSIS Urine, voided: --Negative for malignant cells. URINE VOID GROSS DESCRIPTION 7.5 mls of clear pale yellow voided urine. Signed (signature on file) Gisela Ortega MD 1355 END OF REPORT * ML=Testing performed at Main Lab DEPARTMENT OF PATHOLOGY, [address] [place] [address] Uziel South M.D. Director [facility] # [id number] 20 Because ethnic data is not always readily available, this report includes an eGFR for both -Americans and non- Americans. The National Kidney Disease Education Program (NKDEP) does not endorse the use of the MDRD equation for patients that are not between the ages of 18 and 70, are , have extremes of body size, muscle mass, or nutritional status, or are non- or non-. According to the National Kidney Foundation, irrespective of diagnosis, the stage of the disease is based on the level of kidney function: Stage Description GFR(mL/min/1.73 m(2)) 1 Kidney damage with normal or decreased GFR 90 2 Kidney damage with mild decrease in GFR 60-89 3 Moderate decrease in GFR 30-59 4 Severe decrease in GFR 15-29 5 Kidney failure <15 (or dialysis) 21 Because ethnic data is not always readily available, this report includes an eGFR for both -Americans and non- Americans. The National Kidney Disease Education Program (NKDEP) does not endorse the use of the MDRD equation for patients that are not between the ages of 18 and 70, are , have extremes of body size, muscle mass, or nutritional status, or are non- or non-. According to the National Kidney Foundation, irrespective of diagnosis, the stage of the disease is based on the level of kidney function: Stage Description GFR(mL/min/1.73 m(2)) 1 Kidney damage with normal or decreased GFR 90 2 Kidney damage with mild decrease in GFR 60-89 3 Moderate decrease in GFR 30-59 4 Severe decrease in GFR 15-29 5 Kidney failure <15 (or dialysis) 22 Because ethnic data is not always readily available, this report includes an eGFR for both -Americans and non- Americans. The National Kidney Disease Education Program (NKDEP) does not endorse the use of the MDRD equation for patients that are not between the ages of 18 and 70, are , have extremes of body size, muscle mass, or nutritional status, or are non- or non-. According to the National Kidney Foundation, irrespective of diagnosis, the stage of the disease is based on the level of kidney function: Stage Description GFR(mL/min/1.73 m(2)) 1 Kidney damage with normal or decreased GFR 90 2 Kidney damage with mild decrease in GFR 60-89 3 Moderate decrease in GFR 30-59 4 Severe decrease in GFR 15-29 5 Kidney failure <15 (or dialysis) 23 Because ethnic data is not always readily available, this report includes an eGFR for both -Americans and non- Americans. The National Kidney Disease Education Program (NKDEP) does not endorse the use of the MDRD equation for patients that are not between the ages of 18 and 70, are , have extremes of body size, muscle mass, or nutritional status, or are non- or non-. According to the National Kidney Foundation, irrespective of diagnosis, the stage of the disease is based on the level of kidney function: Stage Description GFR(mL/min/1.73 m(2)) 1 Kidney damage with normal or decreased GFR 90 2 Kidney damage with mild decrease in GFR 60-89 3 Moderate decrease in GFR 30-59 4 Severe decrease in GFR 15-29 5 Kidney failure <15 (or dialysis) 24 REFERENCE RANGE: <1:8 INTERPRETIVE CRITERIA: <1:8 Antibody Not Detected > or=1:8 Antibody Detected Single titers of > or=1:32 are indicative of recent infection. Titers of 1:8 or 1:16 may be indicative of either past or recent infection, since CF antibody levels persist for only a few months. A four-fold or greater increase in titer between acute and convalescent specimens confirms the diagnosis. There is considerable crossreactivity among enteroviruses; however, the highest titer is usually associated with the infecting serotype. This test was developed and its performance characteristics have been determined by [facility]. Performance characteristics refer to the analytical performance of the test. Test Performed by: [facility], [employer] [address] [place] [address] 25 RESULT: Results suggest past infection. ADDITIONAL INFORMATION In most populations, at least 90% of the adult population will have been infected with EBV sometime in the past and therefore, will be positive for anti-VCA/IgG and anti- EBNA. Antibodies to EBNA develop 6-8 weeks after primary infection and remain present for life. Presence of VCA/ IgM antibodies indicates recent primary infection with EBV. Test Performed by: [place] [address] Offset Printing Operator: Yariel Alonso II, M.D., Ph.D. 26 Reference Range and Interpretation: TnI (ng/mL) Interpretation Less Than 0.03 ng/mL Not supportive of diagnosis of [place] 0.03 - 0.50 ng/mL Indeterminate: suggest serial studies if clinically indicated. Greater than 0.5 ng/mL Consistent with diagnosis of [place] 27 Because ethnic data is not always readily available, this report includes an eGFR for both -Americans and non- Americans. The National Kidney Disease Education Program (NKDEP) does not endorse the use of the MDRD equation for patients that are not between the ages of 18 and 70, are , have extremes of body size, muscle mass, or nutritional status, or are non- or non-. According to the National Kidney Foundation, irrespective of diagnosis, the stage of the disease is based on the level of kidney function: Stage Description GFR(mL/min/1.73 m(2)) 1 Kidney damage with normal or decreased GFR 90 2 Kidney damage with mild decrease in GFR 60-89 3 Moderate decrease in GFR 30-59 4 Severe decrease in GFR 15-29 5 Kidney failure <15 (or dialysis) 28 Because ethnic data is not always readily available, this report includes an eGFR for both -Americans and non- Americans. The National Kidney Disease Education Program (NKDEP) does not endorse the use of the MDRD equation for patients that are not between the ages of 18 and 70, are , have extremes of body size, muscle mass, or nutritional status, or are non- or non-. According to the National Kidney Foundation, irrespective of diagnosis, the stage of the disease is based on the level of kidney function: Stage Description GFR(mL/min/1.73 m(2)) 1 Kidney damage with normal or decreased GFR 90 2 Kidney damage with mild decrease in GFR 60-89 3 Moderate decrease in GFR 30-59 4 Severe decrease in GFR 15-29 5 Kidney failure <15 (or dialysis) 29 Because ethnic data is not always readily available, this report includes an eGFR for both -Americans and non- Americans. The National Kidney Disease Education Program (NKDEP) does not endorse the use of the MDRD equation for patients that are not between the ages of 18 and 70, are , have extremes of body size, muscle mass, or nutritional status, or are non- or non-. According to the National Kidney Foundation, irrespective of diagnosis, the stage of the disease is based on the level of kidney function: Stage Description GFR(mL/min/1.73 m(2)) 1 Kidney damage with normal or decreased GFR 90 2 Kidney damage with mild decrease in GFR 60-89 3 Moderate decrease in GFR 30-59 4 Severe decrease in GFR 15-29 5 Kidney failure <15 (or dialysis) 30 REFERENCE VALUE 25-HYDROXY D TOTAL (D2+D3) Optimum levels in the healthy population are 20-50, patients with bone disease may benefit from higher levels within this range. Test Performed by: [facility] - [address] [address] Offset Printing Operator: Nba Park M.D. 31 RUN DATE: 10/21/14 [facility] LAB LIVE PAGE 1 RUN TIME: [address] [place] [address] Specimen Inquiry Name: NICKY MOORE : [address]: Surya De Guzman MD Acct: [id number] Unit: [id number] AGE: 59 Location: [facility] Re10/20/14 SEX: F Status: DEP ER SPEC: [id number] CHRIS: 10/20/14-1844 [facility] [place] DR: Surya De Guzman MD REQ: [id number] RECD: 10/21/14-121 STATUS: JOSTIN BLAKELY DR: Zulay Kraus MD _ SOURCE: [facility]: ORDERED: Rapid Flu A B COMMENTS: Verbal to [id number] ([facility]) by [id number] at 1445 on 10/21/14. Results read back accurately. QUERIES: Medent Number [id number] Procedure Result Verified Site Rapid Influenza A B Antigen Final 10/21/14- 1446 ML Organism 1 POSITIVE INFLUENZA A Organism 2 Negative Influenza B Antigen testing by enzyme immunoassay. Cell culture testing can be performed to confirm negative test results and to assist in detecting other viruses that can produce similar clinical symptoms. Please notify Microbiology Lab if further testing is desired. END OF REPORT * ML=Testing performed at Main Lab DEPARTMENT OF PATHOLOGY, [facility] [employer] [place], [place] [address] Uziel South M.D. Director [facility] # [id number] 32 Potassium reference range changed effective 10/01/14 33 Because ethnic data is not always readily available, this report includes an eGFR for both -Americans and non- Americans. The National Kidney Disease Education Program (NKDEP) does not endorse the use of the MDRD equation for patients that are not between the ages of 18 and 70, are , have extremes of body size, muscle mass, or nutritional status, or are non- or non-. According to the National Kidney Foundation, irrespective of diagnosis, the stage of the disease is based on the level of kidney function: Stage Description GFR(mL/min/1.73 m(2)) 1 Kidney damage with normal or decreased GFR 90 2 Kidney damage with mild decrease in GFR 60-89 3 Moderate decrease in GFR 30-59 4 Severe decrease in GFR 15-29 5 Kidney failure <15 (or dialysis) 34 RUN DATE: 10/18/14 [facility] LAB LIVE PAGE 1 RUN TIME: 5939 [address] [place], [place] [address] Specimen Inquiry Name: NICKY MOORE : [address]: Zulay Kraus MD Acct: [id number] Unit: [id number] AGE: 59 Location: [facility] Re10/17/14 SEX: F Status: REG REF SPEC: [id number] CHRIS: 10/17/14-1010 [facility] [place] DR: Zulay Kraus MD REQ: [id number] RECD: 10/17/14 STATUS: SOUT _ ORDERED: IMAGE ANALYSIS, HPV/Thin Prep FINAL DIAGNOSIS Negative for Intraepithelial lesion or Malignancy HPV Result: Negative Normal Range: Negative The high-risk HPV types detected by the assay include: 16, 18, 31, 33, 35, 39, 45, 51, 52, 56, 58, 59, 66, and 68. A. Ectocervical/Endocervical Specimen Adequacy: Satisfactory of evaluation Transformation zone component cannot be definitely identified due to presence of atrophy or other hormonal changes Patient Information: HPV: High risk HPV RNA testing regardless of pap results. 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 Signed (signature on file) DESTIN Zhu (ASCP) 10/18/14 1351 This Pap test was evaluated with the assistance of the ThinPrep Test Imaging System. Due to cytologic findings at the material control analyst microscope, comprehensive manual rescreening by a Mold Yard Supervisor may be required. The Pap Smear is a screening test designed to aid in the detection of premalignant and malignant conditions of the uterine cervix. It is not a diagnostic procedure and should not be used as the sole means of detecting cervical cancer. Both false- positive and false- negative reports do occur. Depending on your risk status, a Pap smear shoudl be obtained and evaluated every 1-3 years. END OF REPORT * ML=Testing performed at Main Lab DEPARTMENT OF PATHOLOGY, [address] [place] [address] Uziel South M.D. Director [facility] # [id number] 35 The high-risk HPV types detected by the assay include: 16, 18, 31, 33, 35, 39, 45, 51, 52, 56, 58, 59, 66, and 68. 36 Because ethnic data is not always readily available, this report includes an eGFR for both -Americans and non- Americans. The National Kidney Disease Education Program (NKDEP) does not endorse the use of the MDRD equation for patients that are not between the ages of 18 and 70, are , have extremes of body size, muscle mass, or nutritional status, or are non- or non-. According to the National Kidney Foundation, irrespective of diagnosis, the stage of the disease is based on the level of kidney function: Stage Description GFR(mL/min/1.73 m(2)) 1 Kidney damage with normal or decreased GFR 90 2 Kidney damage with mild decrease in GFR 60-89 3 Moderate decrease in GFR 30-59 4 Severe decrease in GFR 15-29 5 Kidney failure <15 (or dialysis) 37 Reference Range and Interpretation: TnI (ng/mL) Interpretation Less Than 0.03 ng/mL Not supportive of diagnosis of [place] 0.03 - 0.50 ng/mL Indeterminate: suggest serial studies if clinically indicated. Greater than 0.5 ng/mL Consistent with diagnosis of [place] 38 Less Than 1.0......Low Risk of Cardiovascular Disease 1.0-3.0............Medium Risk (<2 Fold Increase) Greater Than 3.0...High Risk (Approximately 2-Fold Increase) 39 Because ethnic data is not always readily available, this report includes an eGFR for both -Americans and non- Americans. The National Kidney Disease Education Program (NKDEP) does not endorse the use of the MDRD equation for patients that are not between the ages of 18 and 70, are , have extremes of body size, muscle mass, or nutritional status, or are non- or non-. According to the National Kidney Foundation, irrespective of diagnosis, the stage of the disease is based on the level of kidney function: Stage Description GFR(mL/min/1.73 m(2)) 1 Kidney damage with normal or decreased GFR 90 2 Kidney damage with mild decrease in GFR 60-89 3 Moderate decrease in GFR 30-59 4 Severe decrease in GFR 15-29 5 Kidney failure <15 (or dialysis) 40 HDL Interpretation: Undesirable: High Risk: Less than 40 mg/dL Desirable: Low Risk: Greater than 60 mg/dL 41 LDL Interpretation: Low Risk Optimal Level: LDL Less than 100 mg/dL Near or Above Optimal: LDL 100-129 mg/dL Borderline High Risk: LDL 130-159 mg/dL High Risk: LDL 160-189 mg/dL Very High Risk: LDL Greater than 189 mg/dL 42 RUN DATE: 09/06/13 [facility] LAB LIVE PAGE 1 RUN TIME: [address] [place], [place] [address] Specimen Inquiry Name: NICKY MOORE : [address]: Fern Jean MD Acct: [id number] Unit: [id number] AGE: 57 Location: [facility] Re09/05/13 SEX: F Status: REG REF SPEC: [id number] CHRIS: 09/05/13-[address]: Fern Jean MD REQ: [id number] RECD: 09/05/13-1548 STATUS: SOUT _ ORDERED: IMAGE ANALYSIS FINAL DIAGNOSIS Negative for Intraepithelial lesion or Malignancy A. Ectocervical/Endocervical Specimen Adequacy: Satisfactory of evaluation Transformation zone component identified Patient Information: HPV: Thin Layer Pap Test w/reflex to high risk HPV DNA testing when ASCUS Actual Specimen Date: 09/05/13 LMP If Unknown: 7 yrs ago IUD: N Lesion, grossly demonstrate: N ?: N Post Menopausal?: Y Hysterectomy?: N Previous Abnormal Pap Smears?:Y If Yes, enter Diagnosis: HPV several yrs ago Signed (signature on file) DESTIN Zhu (ASCP) 09/06/13 1152 This Pap test was evaluated with the assistance of the ThinPrep Test Imaging System. Due to cytologic findings at the material control analyst microscope, comprehensive manual rescreening by a Mold Yard Supervisor may be required. The Pap Smear is a screening test designed to aid in the detection of premalignant and malignant conditions of the uterine cervix. It is not a diagnostic procedure and should not be used as the sole means of detecting cervical cancer. Both false- positive and false- negative reports do occur. Depending on your risk status, a Pap smear shoudl be obtained and evaluated every 1-3 years. END OF REPORT * ML=Testing performed at Main Lab DEPARTMENT OF PATHOLOGY, [address] [place] [address] Uziel South M.D. Director [facility] Permit #[id number] 43 Reference Range and Interpretation: TnI (ng/mL) Interpretation Less Than 0.06 ng/mL Not supportive of diagnosis of [place] 0.06 - 0.50 ng/mL Indeterminate: suggest serial studies if clinically indicated. Greater than 0.5 ng/mL Consistent with diagnosis of [place] 44 CKMB interpretation should be made in conjunction with clinical symptoms, patient history and EKG changes. 45 Because ethnic data is not always readily available, this report includes an eGFR for both -Americans and non- Americans. The National Kidney Disease Education Program (NKDEP) does not endorse the use of the MDRD equation for patients that are not between the ages of 18 and 70, are , have extremes of body size, muscle mass, or nutritional status, or are non- or non-. According to the National Kidney Foundation, irrespective of diagnosis, the stage of the disease is based on the level of kidney function: Stage Description GFR(mL/min/1.73 m(2)) 1 Kidney damage with normal or decreased GFR 90 2 Kidney damage with mild decrease in GFR 60-89 3 Moderate decrease in GFR 30-59 4 Severe decrease in GFR 15-29 5 Kidney failure <15 (or dialysis) 46 Consistent with early infection with Borrelia burgdorferi. A new serum specimen should be submitted in 14-21 days to demonstrate seroconversion of IgG. IgM blot criteria is of diagnostic utility only during the first 4 weeks of early Lyme disease. CDC criteria require >=5 bands for IgG or >=2 bands for IgM for the Immunoblot to be considered positive. Bands (e.g.,p41) may be detected in patients without Lyme disease, and patterns not meeting the CDC criteria should be interpreted with caution. Immunoblot should be ordered only on specimens that are positive or equivocal by a FDA-licensed Lyme disease antibody screening test (e.g., EIA). Test Performed by: [place] [address] Offset Printing Operator: Louie Burkett III, M.D. 47 Not diagnostic. Supplemental testing ordered by reflex. Test Performed by: [place] [address] Offset Printing Operator: Louie Burkett III, M.D. 48 Less Than 1.0......Low Risk of Cardiovascular Disease 1.0-3.0............Medium Risk (<2 Fold Increase) Greater Than 3.0...High Risk (Approximately 2-Fold Increase) 49 FASTING 50 FASTING 51 Desirable: Less than 200 MG/DL Borderline-High Risk: 200-239 MG/DL High-Risk: 240 MG/DL and over 52 HDL Interpretation: Undesirable: High Risk: Less than 40 MG/DL Desirable: Low Risk: Greater than 60 MG/DL 53 A metabolite of Naproxen, O-desmethylnaproxen, has been shown to interfere with the Jendrchantaleik-Bobbi method for measuring total bilirubin. Samples from patients who have taken Naproxen have shown spurious elevation in total bilirubin levels. 54 Because ethnic data is not always readily available, this report includes an eGFR for both -Americans and non- Americans. The National Kidney Disease Education Program (NKDEP) does not endorse the use of the MDRD equation for patients that are not between the ages of 18 and 70, are , have extremes of body size, muscle mass, or nutritional status, or are non- or non-. According to the National Kidney Foundation, irrespective of diagnosis, the stage of the disease is based on the level of kidney function: Stage Description GFR(mL/min/1.73 m(2)) 1 Kidney damage with normal or decreased GFR 90 2 Kidney damage with mild decrease in GFR 60-89 3 Moderate decrease in GFR 30-59 4 Severe decrease in GFR 15-29 5 Kidney failure <15 (or dialysis) 55 -- REFERENCE VALUE -- 25-HYDROXY D TOTAL (D2+D3) Optimum levels in the normal population are 25-80 Test Performed by: [facility] - [address] [address] Offset Printing Operator: Louie Burkett III, M.D. R 56 RUN DATE: 09/02/12 [facility] LAB LIVE PAGE 1 RUN TIME: [address] [place] [address] Specimen Inquiry Name: NICKY MOORE : [address]: Fern Jean MD Acct: [id number] Unit: [id number] AGE: 56 Location: [facility] Re09/01/12 SEX: F Status: REG REF SPEC : [id number] RECD: 09/02/12 STATUS: ELBA HARPER NUM: [id number] CHRIS: 09/01/120 [facility] [place] DR: Fern Jean MD ENTERED: 09/02/12 SP TYPE: CYTOLOGY OTHR DR: ORDERED: IMAGE ANALYSIS Negative for Intraepithelial lesion or Malignancy A. Ectocervical/Endocervical Specimen Adequacy: Satisfactory of evaluation Transformation zone component identified Patient Information: Actual Specimen Date: 09/01/12 Cautery: N IUD: N ?: N Post Menopausal?: Y Hysterectomy?: N Lesion, grossly demonstrate: N Previous Abnormal Pap Smears?:Y If Yes, enter Diagnosis: had cryosurgery no abnormal paps since HPV: Reflex to high risk HPV DNA testing when ASCUS Signed (signature on file) Dunia ScanlonDESTIN (ASCP) 09/02 1718 This Pap test was evaluated with the assistance of the ThinPrep Test Imaging System. Due to cytologic findings at the material control analyst microscope, comprehensive manual rescreening by a Mold Yard Supervisor may be required. The Pap Smear is a screening test designed to aid in the detection of premalignant and malignant conditions of the uterine cervix. It is not a diagnostic procedure and should not be used as the sole means of detecting cervical cancer. Both false- positive and false- negative reports do occur. Depending on your risk status, a Pap smear shoudl be obtained and evaluated every 1-3 years. END OF REPORT * ML=Testing performed at Main Lab DEPARTMENT OF PATHOLOGY, [address] [place] [address] Uziel South M.D. Director [facility] Permit #[id number] 57 Anion gap measurement may be of limited value in the presence of any alkalosis, especially in a combined acid base disorder. . 58 Because ethnic data is not always readily available, this report includes an eGFR for both -Americans and non- Americans. The National Kidney Disease Education Program (NKDEP) does not endorse the use of the MDRD equation for patients that are not between the ages of 18 and 70, are , have extremes of body size, muscle mass, or nutritional status, or are non- or non-. According to the National Kidney Foundation, irrespective of diagnosis, the stage of the disease is based on the level of kidney function: Stage Description GFR(mL/min/1.73 m(2)) 1 Kidney damage with normal or decreased GFR 90 2 Kidney damage with mild decrease in GFR 60-89 3 Moderate decrease in GFR 30-59 4 Severe decrease in GFR 15-29 5 Kidney failure <15 (or dialysis) 59 ---- RUN DATE: 06/11/11 [facility] NMI LIVE PAGE 1 RUN TIME: 1455 Specimen Inquiry RUN USER: INTERFACE -- Name: NICKY MOORE Status: REG REF Re06/10/11 Age/Sex: 55/F Unit#: [id number] Location: [facility] : 57 -- Specimen: [id number] SOUT Spec Date: 06/10/[address]: Fern Jean MD Spec Type: CYTOLOGY Received: 06/11/11 Copies to: SOURCE ECTOCERVICAL/ENDOCERVICAL Thin Prep with Reflex HPV Test PATIENT INFORMATION ACTUAL COLLECTION DATE: 06/10/11 ? No POST MENOPAUSAL? Yes HYSTERECTOMY? No PREVIOUS ABNORMAL PAP SMEARS No PATIENT HISTORY: Last menstrual period 5 yrs ago ADEQUACY OF SPECIMEN Satisfactory for evaluation * Transformation zone component cannot be definitely identified due to prese nce * of atrophy or other hormonal changes. * DIAGNOSIS NEGATIVE FOR INTRAEPITHELIAL LESION OR MALIGNANCY * This Pap test was evaluated with the assistance of the LuxanovaPrep Pap Test Imaging System. The Pap Smear is a screening test designed to aid in the detection of premalign ant and malignant conditions of the uterine cervix. It is not a diagnostic procedure a nd should not be used as the sole means of detecting cervical cancer. Both false- positiv e and false-negative reports do occur. Depending on your risk status, a Pap smear kamini uld be obtained and evaluated every one to three years. Initial evaluation performed by Roshan JURADO(ASCP) 06/11/11 Final Interpretation electronically signed by: Roshan JURADO(ASCP) 06/11/11 1456 -- DEPARTMENT OF PATHOLOGY, [address] [place] [address] [facility] Permit #[id number] Uziel South M.D. Director Ally Hooks M.D. Transfer Car Operator Drier Dir sam -- Procedures Date CPT Code Description Status 03/08/2018 Mammogram Completed 02/12/2018 88775 Echocardiography, Transesophageal, Real Time W/Image 2D Completed W/W/O M-M 02/12/2018 51639 Pulse Wave/Continuous-Interp.RPT Completed 02/12/2018 30304 Color Flow Doppler/Interp & Reprt Completed 02/12/2018 14163 Moderate Sedation Services; Same Phys Intl 15 Mins; PT Completed >=5 Years 02/12/2018 72463 Moderate Sedation Services; Same Phys Each Additional Completed 15 Mins 02/04/2018 15378 ECHO Transthorasic Realtime 2D W Doppler & Color Flow Completed Hosp 11/18/2017 Bone Mineral Density Test Completed 11/17/2017 21593 ECHO Transthorasic Realtime 2D W Doppler & Color Flow Completed Hosp 11/09/2017 94887 EKG Tracing & Interpretation Completed 10/14/2017 95590 Moderate Sedation Services; Same Phys Intl 15 Mins; PT Completed >=5 Years 10/14/2017 08630 Cardioversion Completed 02/17/2017 Mammogram Completed 11/17/2016 34009 EKG Tracing & Interpretation Completed 08/24/2016 47074 EKG, Interpretation Only Completed 08/23/2016 75941 EKG, Interpretation Only Completed 02/15/2016 Mammogram Completed 01/16/2016 34456 Polysomnography Sleep Staging 4+ Parameters Completed 12/03/2015 93678 EKG Tracing & Interpretation Completed 10/10/2015 36123 EKG Tracing & Interpretation Completed 03/19/2015 51136 ECHO Transthorasic Realtime 2D W Doppler & Color Flow Completed Hosp 12/14/2014 79912 EKG Tracing & Interpretation Completed 10/31/2014 Mammogram Completed 10/31/2014 Bone Mineral Density Test Completed 09/29/2014 50874 EKG, Interpretation Only Completed 09/13/2014 28359 EKG Tracing & Interpretation Completed 03/06/2014 83873 ECHO Transthorasic Realtime 2D W Doppler & Color Flow Completed Hosp 11/07/2013 Mammogram Completed 09/05/2013 22247 EKG Tracing & Interpretation Completed 07/22/2013 05312 Stress Test Completed 07/22/2013 96885 Myocardial Perfusion Imaging Tomographic (Spect) Completed Multiple Studies 07/19/2013 45078 Stress Test Completed 07/13/2013 49186 Holter Monitor Review (24 hr)dr review & interp only Completed 07/11/2013 61894 EKG Tracing & Interpretation Completed 07/05/2013 24895 ECHO Transthorasic Realtime 2D W Doppler & Color Flow Completed Hosp 06/23/2013 82461 EKG Tracing & Interpretation Completed 09/09/2012 Bone Mineral Density Test Completed 09/09/2012 Mammogram Completed 06/15/2012 50630 EKG Tracing & Interpretation Completed 07/01/2011 Colonoscopy Completed 04/15/2011 Mammogram Completed 03/19/2011 38987 EKG Tracing & Interpretation Completed 02/07/2010 Mammogram Completed 02/07/2010 Bone Mineral Density Test Completed 01/30/2010 89922 EKG Tracing & Interpretation Completed 01/05/2009 95703 EKG Tracing & Interpretation Completed 12/27/2007 09694 EKG Tracing & Interpretation Completed 12/27/2007 16141 EKG Tracing & Interpretation Completed 11/24/2006 04907 EKG Tracing & Interpretation Completed Encounters Type Date Location Provider CPT E/M Dx Office Visit 07/29/2018 [facility] [place] [address] M25.511 10:40a - [place] Office Visit 01/19/2018 [facility] Oscar Bone M.D., 72533 Q87.40 2:40p [facility] AT [facility], [facility] Office Visit 11/09/2017 [facility] Of Meir Bone M.D., 78180 I48.0 1:20p [facility] AT [facility] Q87.40 I34.1 Office Visit 10/20/2017 10:30a [facility] Zulay Kraus M.D. 90180 I48.0 - [place] E03.9 Z23 Office Visit 10/14/2017 11:59a [facility] Jane Henderson M.D. 97060 I48.0 [facility] Office Visit 10/14/2017 8:30a [facility], Yuriy Bunch, 05415 I48.91 Hospitalists M.DJan Q87.40 E03.9 Office Visit 10/13/2017 8:29a [facility],fatimah Madison, 07165 I48.91 Hospitalists D.O. E03.9 Q87.40 Office Visit 05/27/2017 2:00p [facility] Dermat[place] Miguel Á[place] [address] L81.7 Office Visit 05/27/2017 10:30a [facility] - Zulay Kraus, 19742 M81.0 Bakari Lugo E87.6 E83.42 R21 Z13.220 Z00.01 Z12.4 H61.22 Office Visit 11/17/2016 3:00p [facility] Of Meir Bone M.D., 21378 Q87.40 [facility] AT [facility], FSCAI I34.0 I48.0 I34.1 Office Visit 09/09/2016 9:30a [facility] Agosto, 20476 K35.3 [facility] M.Torie Office Visit 08/25/2016 1:41p [facility], Ezequiel Wells, 84993 I48.0 Hospitalists M.Torie K35.3 E03.9 Office Visit 08/24/2016 1:41p [facility], Makeda Lovelace, DAVID 64024 I48.0 Hospitalists K35.3 E03.9 Office Visit 08/24/2016 4:36p [facility] Of [facility] Viktor Pedro, 26487 I48.0 DO [facility] Office Visit 08/23/2016 1:39p [facility], Makeda Lovelace, 76788 I48.0 Hospitalists [place] K35.3 E03.9 Office Visit 08/21/2016 2:00p [facility] [place] [address] R35.0 Office Visit 02/07/2016 10:45a [facility] [address] G47.33 Services [facility] Office Visit 02/05/2016 11:10a [facility] - Zulay Kraus, 45588 Z00.00 Jeny Lugo Z12.31 E83.42 E87.6 Z11.59 Office Visit 12/18/2015 10:15a [facility] [address] G47.9 [facility] Office Visit 12/03/2015 3:20p [facility] Meir Bone M.D., 37063 I48.0 [facility] AT [facility], FSCAI I34.0 Q87.40 Office Visit 10/22/2015 11:10a [facility] Zulay Kraus M.D. 65025 B34.9 - Jeny I48.0 R74.0 E87.6 E83.42 R06.83 Office Visit 10/19/2015 10:43a [facility], Yuriy Bunch, 97255 I48.91 Hospitalists MJuan Q87.40 I95.9 Office Visit 10/18/2015 10:42a [facility] Danial Mccain, 58495 I48.91 Assoc, Hospitalists N.P. Q87.40 I95.9 Office Visit 10/18/2015 3:45p [facility] Of Arlen Henderson M.D. 29370 I48.0 [facility] Office Visit 10/10/2015 3:40p [facility] Meir Bone M.D., 63951 I34.0 [facility] AT [facility], FSCAI I48.0 I77.810 Office Visit 09/20/2015 11:50a [facility] Zulya Kraus, 13357 B30.1 - Jeny Lugo Office Visit 02/19/2015 9:45a [facility] Dennis M.D. 38508 726.10 C.M.A. Office Visit 02/05/2015 11:00a [facility] M.D. 53289 840.4 C.M.AJan Office Visit 12/14/2014 3:20p [facility] Meir Bone M.D., 74014 427.31 [facility] AT [facility], FSCAI 424.0 759.82 Office Visit 11/07/2014 10:50a [facility] Zulay Kraus 54406 733.01 - Jeny Lugo 786.2 Office Visit 10/17/2014 9:10a [facility] Zulay Kraus M.D. 82642 V70.0 - Jeny V76.10 244.9 733.90 840.4 V04.81 V76.2 V06.1 V72.31 Office Visit 09/30/2014 10:58a [facility] Cali Becker, 45925 427.31 M.D. 759.82 Office Visit 09/30/2014 12:15p [facility],pc Yuriy Bunch, 00516 427.31 Hospitalists M.D. 244.9 759.82 Office Visit 09/29/2014 12:14p [facility], Yuriy Bunch, 97958 427.31 Hospitalists M.D. 244.9 759.82 Office Visit 09/29/2014 12:29p [facility] Of Jared Garcia, 88560 427.31 [facility] Brittney, [facility], [facility] 424.0 Office Visit 09/13/2014 2:20p [facility] Of Meir Bone M.D., 16547 427.31 [facility], FSCAI 424.0 Office Visit 03/21/2014 11:40a [facility] Fern Jean M.D., 03633 088.81 - [place] FACP 300.00 Office Visit 09/05/2013 9:20a [facility] Fern Jean M.D., 39181 780.79 - [place] FACP V70.0 V72.31 V76.10 424.0 427.31 244.9 759.82 V04.81 272.0 v76.2 Office Visit 08/04/2013 9:15a [facility] Oscar Bone M.D., 74309 427.31 [facility], [facility] 424.0 Office Visit 07/11/2013 10:30a [facility] Meir Bone M.D., 06947 424.0 [facility] AT [facility], [facility] Office Visit 06/29/2013 10:00a [facility] Fern Jean M.D., 74890 427.31 - [place] FACP 244.9 Office Visit 06/23/2013 8:40a [facility] Fern Jean M.D., 16383 786.59 - [place] FACP 427.31 Office Visit 06/01/2013 10:20a [facility] Fern Jean M.D., 97537 088.81 - [place] FACP Office Visit 09/01/2012 1:20p [facility] Fern Jean M.D., 20404 V70.0 - [place] FACP V72.31 V76.10 244.9 759.82 733.90 300.00 V04.81 Office Visit 07/05/2012 11:00a [facility] - Oanh Bateman M.D. 24100 300.00 [place] Office Visit 06/15/2012 11:20a [facility] - Oanh Bateman M.D. 04039 759.82 [place] 244.9 785.1 300.00 Office Visit 06/10/2011 2:20p DO Not Use [employer] [facility] Fern Jean, 12609 759.82 M.D., FACP 477.9 V72.31 V70.0 244.9 Office Visit 03/19/2011 2:15p DO Not Use [facility] Fern Jean, 92591 366.00 M.D., FACP 759.82 V72.84 V76.12 Office Visit 06/25/2010 4:15p DO Not Use [facility] Fern Jean, 00781 692.6 M.D., FACP Office Visit 02/27/2010 11:00a DO Not Use [facility] Fern Jean, 95383 733.90 M.D., FACP Office Visit 01/30/2010 9:15a DO Not Use [facility] Fern Jean, 86977 V72.31 M.D., FACP 759.82 V04.81 Office Visit 07/31/2009 3:00p DO Not Use Francia Lancaster 39572 692.6 [facility] N.P. Office Visit 02/01/2009 2:30p DO Not Use Fern Jean M.D., 08651 716.99 [facility] FACP 759.82 Office Visit 01/05/2009 1:15p DO Not Use [employer] [facility] [employer] [facility] Fern Jean 92067 V72.31 M.D., FACP 719.40 759.82 244.9 V04.81 Office Visit 05/02/2008 10:45a DO Not Use [employer] [facility] [employer] [facility] Fernprosper Jean, 51774 V07.8 M.D., FACP Office Visit 02/07/2008 11:15a DO Not Use [employer] [facility] [employer] [facility] Fern Miranda, 97975 733.90 M.D., FACP Office Visit 12/27/2007 10:45a DO Not Use [employer] [facility] Fern Miranda, 07395 V72.31 M.D., FACP 733.90 244.9 759.82 272.0 Office Visit 11/24/2006 11:30a DO Not Use [employer] [facility] Fern Miranda, 27342 V72.31 M.D., FACP V04.81 Office Visit 09/15/2006 2:15p DO Not Use [employer] [facility] Fernprosper Jean, 46672 466.0 M.D., [facility] Plan of Care Future Appointment(s):11/16/2018 11:10 am - Zulay Kraus M.D. at [facility] - Lmiukjjai92/06/2018 - Zulay Kraus M.D.S13.8xxA Sprain of joints and ligaments of oth prt neck, init encntrNew Medication: Cyclobenzaprine HCL 5 mgFollow up:annual physical in 2 months
--- OUTSIDE RECORDS SUMMARY | 2018-08-09 16:47 | XMS REPORT ---
:1955 External Reference #:[id number] Author Organization [employer] Address [address] [place] [address] [place] [address] Phone [phone] Care Team Providers Name Role Phone Zulay Kraus MD Primary Care Physician Unavailable Payers Type Date Identification Numbers Payment Provider Subscriber Commercial Policy Number: [id number] [facility] Nicky Moore PayID: [id number] [address] [place] [address] Problems Date Description Provider Status Onset: 03/17/2011 Marfan's syndrome Fern Jean M.D., MIA Active Onset: 03/17/2011 Hypothyroidism Fern Jean M.D., MIA Active Onset: 09/13/2014 Atrial fibrillation Meir Bone M.D., [facility], [facility] Active Onset: 09/13/2014 Mitral valve disorder Meir Bone M.D., [facility], [facility] Active Note: mitral valave insufficiency Onset: 11/07/2014 Osteoporosis Zulay Kraus M.D. Active Onset: 11/07/2014 Scoliosis deformity of spine Zulay Kraus M.D. Active Onset: 02/19/2015 Tendinosis Zulay Kraus M.D. Active Note: rotatot cuff with AC joint OA Onset: 10/10/2015 Thoracic aortic ectasia [facility] Active Onset: 10/23/2015 Arachnoid cyst Zulay Kraus, M.D. Active Note: L anterior fossa Onset: 12/18/2015 Disturbance in sleep behavior Yudi Louie MD Active Onset: 11/17/2016 Paroxysmal atrial fibrillation Meir Bone M.D., [facility], Active FSCAI Onset: 03/17/2011 Osteochondropathy Fern Jean M.D., FACP Inactive Inactive: 11/07/2014 Onset: 03/17/2011 Pure hypercholesterolemia Fern Jean M.D., FACP Inactive Inactive: 11/07/2014 Family History Date Family Member(s) Problem(s) Comments General Heart Disease : (age 43 Years) Father due to MO Father due to Marfan's () Mother due to Stroke () : (age 42 Years) First Brother due to Accident First Sister 67 First Sister Chronic Obstructive Pulmonary Disease (COPD) Social History Type Date Description Comments Marital Status Single Lives With Male 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 Levothyroxine 10/20 Active Tablets 100mcg 90tab 100 mcg PO E03.9 Zulay Sodium s Daily x 6 Kraus, Days A Week M.DJan Calcium 600 + 02/04 Active Tablets 600-200mg 1 tab bid Zulay D -Unit Brittney Kraus Potassium 10/23 Active Capsules ER 10Meq 180ca 1 by mouth Meir Chloride ER ps twice daily Brittney Bone, [facility], [facility] Magnesium 10/23 Active Tablets 250mg 1 by mouth Zulay twice daily Brittney Kraus Metoprolol 12/14 Active Tablets ER 25mg 135ta 1.5 tablets Meir Succinate 24HR bs by mouth ricky Bone.Torie, [facility] Xarelto 10/04 Active Tablets 20mg 90tab 1 by mouth s every day Brittney Bone, [facility], [facility] Selenium Active Tablets 1 po qd Flaxseed Oil Active Capsules 1 po qod Vit C, E, Active once a day Multaq Active Tablets 400mg 180ta take 1 bs tablet by radha Bone twice M.D., a day [facility] Zostavax 10/20 Hx Suspension 26248Ukq/ 1unit sc x1 Rec 0.65ML s Milly Kraus M.D. 01/18 Calcium 600 02/04 Hx Tablets 600mg 1 by mouth every day Milly Kraus M.D. 02/04 Oxycodone HCL 10/22 Hx Tablets 5mg 30tab 12/01 to tab B34.9 Zulay /2015 s for pain Nayana, every 8 M.D. hours as needed Potassium 10/18 Hx Tablets ER 20Meq 2 tab daily Unknown Chloride - 10/23 Malarone 06/13 Hx Tablets 250-100mg 30tab one by mouth s daily Varn, N.P. - starting - 07/13 2 days before arriving and continue for 7 days after leaving destination Potassium 04/03 Hx Tablets ER 10Meq 180ta 1 tab by Zulay Chloride bs mouth twice Nayana, - a day M.D. 10/22 Alendronate 11/07 Hx Tablets 70mg 12tab take 1 M81.0 Zulay Sodium s tablet by Nayana - mouth weekly M.D. 10/30 ( taking recently been off for 1 week) Levothyroxine 10/17 Hx Tablets 88mcg 30tab take 1 E03.9 Henry Sodium s tablet by DAVID Molina - mouth once 10/20 Potassium 10/04 Hx Tablets 10Meq 60tab 1 tab by Other s mouth twice Ordering - a day Provider 04/03 Levothyroxine 10/03 Hx Tablets 88mcg 1 by mouth Other every day Ordering - Provider 10/17 Doxycycline 03/[address] 100mg 2caps 1 by mouth 088.81 Fern Hyclate Part twice a day Milly Jean M.D., [facility] 09/12 Doxycycline 06/[address] 100mg 20cap 1 by mouth 088.81 Fern Hyclate Part s twice a day Milly Jean M.D., [facility] 06/23 Citalopram 06/15 Hx Tablets 10mg 90tab take 1 300.00 Fern Hydrobromide s tablet daily Milly Jean M.D., [facility] 09/12 Clonazepam 06/15 Hx Tablets 0.5mg 60tab take 1 300.00 Fern s tablet twice Miranda, - daily as M.D., [facility] 09/12 needed Levothyroxine 10/06 Hx Tablets 50mcg 90tab take 1 Francia Sodium s tablet by Anisha, N.P. - mouth once 10/03 Nasonex 06/10 Hx Suspension 50mcg/Act 1unit 2 sprays to 477.9 s each nostril Miranda, - once daily M.Torie, [facility] 09/01 Baby Aspirin 03/19 Hx Chewtabs 81mg 100un 1 tablet by its mouth when Miranda, - traveling M.D., [facility] 12/25 Malarone 10/21 Hx Tablets 250-100mg 27tab take 1 daily s 2d prior to Miranda, - leaving and M.Torie, [facility] 03/19 7d return home Ambien 07/16 Hx Tablets 5mg 20tab 1 tablet by s mouth at Cotton, bedtime as M.D. needed for sleep insomnia Synthroid 07/16 Hx Tablets 50mcg 90tab 1 in the am Fern s Milly Jean M.D., [facility] 10/06 Evista 07/16 Hx Tablets 60mg 90tab take 1 Amita s tablet by Cotton, - mouth once M.D. 11/07 Propranolol 07/16 Hx Tablets 40mg 180ta take 1 Fern HCL bs tablet by Miranda, - mouth twice M.D., FACP 10/04 a Prednisone 06/25 Hx Tablets 10mg 10tab 1 po qd Fern /2009 s Miranda, - M.D., FACP 03/19 Malarone Hx Tablets 250-100mg 22tab po qd 1 day Unknown /0000 s prior to - travel 03/21 through days after Calcium & Hx Tablets 1 po qd Unknown Magnesium /0000 - 02/04 Levothyroxine Hx Tablets 75mcg take 1 Unknown Sodium /0000 tablet by - mouth once 10/17 Metoprolol Hx Tablets 25mg take 1 Unknown Tartrate /0000 tablet by - mouth twice 12/14 Digitek Hx Tablets 250mcg Take 1 Unknown /0000 Tablet By - Mouth Daily 12/25 AT 5PM /2015 Amoxicillin/Cl Hx Tablets 875-125mg take 1 Unknown avulanate /0000 tablet by Potassium - mouth twice 11/16 Medications Administered in Office Medication Date Status Form Strength Qnty SIG Indications Ordering Provider Inj, Administered Injection Edson Vogt Regadenoson, 013 Brittney Smith 0.1 MG Technetium TC Administered Injection Edson Vogt 99M 013 Brittney Smith Tetrofosmin, Per Unit Dose Up To 40 Millicuries Immunizations CPT Code Status Date Vaccine Lot # [id number] Given 07/19/2018 Zoster (Shingles) Vaccine (HZV), Recombinant, Subunit, Adjuvanted 05885 Given 07/19/2018 Zoster (Shingles) Vaccine (HZV), Recombinant, Subunit, Adjuvanted 98747 Given 10/20/2017 Influenza Virus Vaccine, Quadrivalent, Split, [id number] Preservative Free 97334 Given 11/26/2016 Influenza Virus Vaccine, Quadrivalent, Split Virus, Im Use 87370 Given 2015 Influenza Virus Vaccine, Quadrivalent, Split, Preservative Free 88919 Given 10/17/2014 Tdap - Tetanus/Diptheria/Acellular Pertussis [id number] 96216 Given 10/17/2014 Flu Vaccine Split Virus Preservative Free For [id number] Indiv 3Yr Older 83664 Given 09/05/2013 Flu Vaccine Split Virus Preservative Free For [id number] Indiv 3Yr Older Q2038 Given 09/01/2012 Fluzone Vaccine [id number] 30448 Given 01/30/2010 Influenza Virus Vaccine, Pandemic Formulation 00079 Given 01/30/2010 Administration Swine Flu Shot 79795 Given 01/05/2009 Influenza Virus 3Yrs & Over 08020 Given 11/24/2006 Influenza Virus 3Yrs & Over 67032 Given 11/24/2006 Influenza Virus 3Yrs & Over 11418 Given 2003 Td Toxoids Adsorbed For Use 7Yrs Or Older For Intramuscular Use Vital Signs Date Vital Result Comment 07/29/2018 Height 70.5 inches 5'10.50" Weight 163.00 [...] Color Colorless Urine Appearance Clear Urine Specific Yolo 1.014 1.010-1.030 Urine pH 7.0 5-9 Urine [...] 18 Sensitivities Laboratory test finding 08/21/2016 Cytology Non-Prevocational/Rehabilitation Counselor SEE RESULT BELOW 19 CBC Auto Diff [...] >60 20 Ua Routine 08/21/2016 Ua Specific Yolo 1.010 Ua PH 5 Ua Color yellow [...] Coxsackie Virus Type A(16) Ab <1:8 24 Harrison Lux Comprehensive 10/22/2015 Ebv Capsid Ag IgG [...] ng/mL 55 Ua Routine 09/01/2012 Ua Specific Yolo 1.005 Ua PH 7 Ua Color pale [...] finding 06/10/2011 Cytology <SEE NOTE> 59 1 [facility] Severe Sepsis and Septic Shock Management Bundle [...] 5 Kidney failure <15 (or dialysis) 5 [facility] Severe Sepsis and Septic Shock Management Bundle [...] [address]: Zulay Kraus MD Acct: [id number] Unit: [id number] AGE: 61 Location: [facility] Re05/27/17 SEX: F Status: REG REF SPEC: [id number] CHRIS: 05/27/17-[address] [facility] [address]: Zulay Kraus MD REQ: [id number] RECD: 05/27/176193 STATUS: SOUT _ ORDERED: TP IMAGE ANAL, HPV 16/18 GENE COMMENTS: [id number] FINAL DIAGNOSIS Negative for Intraepithelial lesion or Malignancy A. Ectocervical/Endocervical Specimen Adequacy: Satisfactory of evaluation Transformation zone component cannot be definitely identified due to presence of atrophy or other hormonal changes Patient Information: HPV: Thin Layer Pap Test w/reflex to high risk HPV RNA testing when ASCUS HPV 16/18 Genotype Reflex Actual Specimen Date: 05/27/17 Post Menopausal?: Y Signed (signature on file) Gisselle DESTIN Peterson(ASCP) 05/28 1346 This Pap test was evaluated with the assistance of the Dowley Security SystemsPrep Test Imaging System. Due to cytologic findings at the orthodontic band maker microscope, comprehensive manual rescreening by a Assistant Professor Of English may be required. The Pap Smear is [...] performed at Main Lab DEPARTMENT OF PATHOLOGY, [address] [place] [address] Uziel South M.D. Director [facility] # [id number] 14 [facility] Severe Sepsis and Septic Shock Management Bundle [...] inflammation: >10.00 17 SEE RESULT BELOW Name: TERESASUENICKY Roshan : [address]: Darian Agosto MD Acct: [id number] Unit: [id number] AGE: 60 Location: [place] [address] Re08/21/16 Dis: 08/25/16 SEX: F Status: DIS IN SPEC: [id number] CHRIS: 08/21/[address] [facility] [address]: Dick Rice MD REQ: [id number] RECD: 08/21/16 STATUS: JOSTIN COBURN DR: Zulay Kraus MD _ SOURCE: BLOOD,VENO SPDESC: ORDERED: Blood Cult Procedure Result Reported Site Aerobic Culture Bottle Final 08/26/16- 1939 ML No Growth Day 5 Anaerobic Culture Bottle Final 08/26/16- 1939 ML No Growth Day 5 * ML - MAIN LAB ([facility]) . END OF REPORT * ML=Testing performed at Main Lab DEPARTMENT OF PATHOLOGY, [address] [place] [address] Uziel South M.D. Director [facility] # [id number] 18 SEE RESULT BELOW Name: NICKY MOORE : [address]: Gorge Gipson NP Acct: [id number] Unit: [id number] AGE: 60 Location: [facility] Re08/21/16 SEX: F Status: REG REF SPEC: [id number] CHRIS: 08/21/16-[address] [facility] [address]: Gorge Gipson NP REQ: [id number] RECD: 08/21/16 STATUS: COMP _ SOURCE: URINE SPDESC: ORDERED: Urine Culture COMMENTS: [id number] Procedure Result Reported Site Urine Culture Final 08/22/16- 1607 ML No Growth (<1,000 CFU/mL) * ML - MAIN LAB ([facility]) . END OF REPORT * ML=Testing performed at Main Lab DEPARTMENT OF PATHOLOGY, [address] [place] [address] Uziel South M.D. Director [facility] # [id number] 19 SEE RESULT BELOW Name: NICKY MOORE : [address]: Gorge Gipson FACILITY MAINTENANCE SUPERVISOR Acct: [id number] Unit: [id number] AGE: 60 Location: [facility] Re08/21/16 SEX: F Status: REG REF SPEC: [id number] CHRIS: 08/21/16-[address]: Gorge Gipson FACILITY MAINTENANCE SUPERVISOR REQ: [id number] RECD: 08/21/16 STATUS: SOUT _ ORDERED: THIN PREP NON G COMMENTS: [id number] FINAL DIAGNOSIS Urine, voided: --Negative for malignant cells. URINE VOID GROSS DESCRIPTION 7.5 mls of clear pale yellow voided urine. Signed (signature on file) Gisela Ortega MD 1355 END OF REPORT * ML=Testing performed at Main Lab DEPARTMENT OF PATHOLOGY, [address] [place] [address] Uziel South M.D. Director [facility] # [id number] 20 Because ethnic data is not always [...] its performance characteristics have been determined by [employer]. Performance characteristics refer to the analytical performance of the test. Test Performed by: [employer] [address] [place] [address] 25 RESULT: Results suggest past infection. ADDITIONAL [...] primary infection with EBV. Test Performed by: [place] [address] Automatic Gluing Machine Operator: Yariel Alonso II, M.D., Ph.D. 26 Reference Range and Interpretation: TnI (ng/mL) Interpretation Less Than 0.03 ng/mL Not supportive of diagnosis of MO 0.03 - 0.50 ng/mL Indeterminate: suggest serial studies if clinically indicated. Greater than 0.5 ng/mL Consistent with diagnosis of MO 27 Because ethnic data is not always [...] levels within this range. Test Performed by: [facility] - [address] [address] Automatic Gluing Machine Operator: Nba Park M.D. 31 RUN DATE: 10/21/14 [facility] LAB LIVE PAGE 1 RUN TIME: [address] [place] [address] Specimen Inquiry Name: NICKY MOORE : [address]: Surya De Guzman MD Acct: [id number] Unit: [id number] AGE: 59 Location: [facility] Re10/20/14 SEX: F Status: DEP ER SPEC: [id number] CHRIS: 10/20/[address] [facility] [address]: Surya De Guzman MD REQ: [id number] RECD: 10/21/14 STATUS: JOSTIN [facility] DR: Zulay Kraus MD _ SOURCE: JOEYJena [facility]: ORDERED: Rapid Flu A B COMMENTS: Verbal to [id number] ([facility]) by [id number] at 1445 on 10/21/14. Results read back accurately. QUERIES: [employer] Number [id number] Procedure Result Verified Site Rapid Influenza A [...] performed at Main Lab DEPARTMENT OF PATHOLOGY, [facility] [place], [place] [address] Uziel South M.D. Director [facility] # [id number] 32 Potassium reference range changed effective 10/01/14 [...] <15 (or dialysis) 34 RUN DATE: 10/18/14 [facility] LAB LIVE PAGE 1 RUN TIME: 1352 [facility] [employer] [place], [place] [address] Specimen Inquiry Name: NICKY MOORE : [address]: Zulay Kraus MD Acct: [id number] Unit: [id number] AGE: 59 Location: [facility] Re10/17/14 SEX: F Status: REG REF SPEC: [id number] CHRIS: 10/17/14-[address] [facility] [address]: Zulay Kraus MD REQ: [id number] RECD: 10/17/14 STATUS: SOUT _ ORDERED: IMAGE [...] significance. likely once. Signed (signature on file) Alaina Scanlon LA (ASCP) 10/18/14 1351 This Pap test was evaluated with the assistance of the Dowley Security SystemsPrep Test Imaging System. Due to cytologic findings at the orthodontic band maker microscope, comprehensive manual rescreening by a Assistant Professor Of English may be required. The Pap Smear is [...] performed at Main Lab DEPARTMENT OF PATHOLOGY, [address] [place] [address] Uziel South M.D. Director [facility] # [id number] 35 The high-risk HPV types detected by [...] 0.03 ng/mL Not supportive of diagnosis of MO 0.03 - 0.50 ng/mL Indeterminate: suggest serial studies if clinically indicated. Greater than 0.5 ng/mL Consistent with diagnosis of MO 38 Less Than 1.0......Low Risk of Cardiovascular [...] than 189 mg/dL 42 RUN DATE: 09/06/13 [facility] LAB LIVE PAGE 1 RUN TIME: 0452 [address] [place], [place] [address] Specimen Inquiry Name: NICKY MOORE : [address]: Fern Jean MD Acct: [id number] Unit: [id number] AGE: 57 Location: [facility] Re09/05/13 SEX: F Status: REG REF SPEC: [id number] CHRIS: 09/05/13-[address] [facility] [address]: Fern Jean MD REQ: [id number] RECD: 09/05/132038 STATUS: SOUT _ ORDERED: IMAGE ANALYSIS FINAL [...] several yrs ago Signed (signature on file) Alaina Scanlon LA (ASCP) 09/06/13 1152 This Pap test was evaluated with the assistance of the Dowley Security SystemsPrep Test Imaging System. Due to cytologic findings at the orthodontic band maker microscope, comprehensive manual rescreening by a Assistant Professor Of English may be required. The Pap Smear is [...] performed at Main Lab DEPARTMENT OF PATHOLOGY, [address] [place] [address] Uziel South M.D. Director [facility] Permit #[id number] 43 Reference Range and Interpretation: TnI (ng/mL) Interpretation Less Than 0.06 ng/mL Not supportive of diagnosis of MO 0.06 - 0.50 ng/mL Indeterminate: suggest serial studies if clinically indicated. Greater than 0.5 ng/mL Consistent with diagnosis of MO 44 CKMB interpretation should be made in [...] screening test (e.g., EIA). Test Performed by: [place] [address] Automatic Gluing Machine Operator: Louie Burkett III, M.D. 47 Not diagnostic. Supplemental testing ordered by reflex. Test Performed by: [place] [address] Automatic Gluing Machine Operator: Louie Burkett III, M.D. 48 Less [...] has been shown to interfere with the [place] method for measuring total bilirubin. Samples from [...] normal population are 25-80 Test Performed by: [facility] - [address] [address] Automatic Gluing Machine Operator: Louie Burkett III, M.D. R 56 RUN DATE: 09/02/12 [facility] LAB LIVE PAGE 1 RUN TIME: [address] [place] [address] Specimen Inquiry Name: NICKY MOORE : [address]: Fern Jean MD Acct: [id number] Unit: [id number] AGE: 56 Location: [facility] Re09/01/12 SEX: F Status: REG REF SPEC : [id number] RECD: 09/02/12 STATUS: ELBA HARPER NUM: [id number] CHRIS: 09/01/[address] [facility] [address]: Fern Jean MD ENTERED: 09/02/12 SP [...] testing when ASCUS Signed (signature on file) DESTIN Ledesma (ASCP) 09/02 7185 This Pap test was evaluated with the assistance of the Dowley Security SystemsPrep Test Imaging System. Due to cytologic findings at the orthodontic band maker microscope, comprehensive manual rescreening by a Assistant Professor Of English may be required. The Pap Smear is [...] performed at Main Lab DEPARTMENT OF PATHOLOGY, [address] [place] [address] Uziel South M.D. Director [facility] Permit #[id number] 57 Anion gap measurement may be of [...] (or dialysis) 59 ---- RUN DATE: 06/11/11 [facility] NMI LIVE PAGE 1 RUN TIME: 1456 Specimen Inquiry RUN USER: INTERFACE -- Name: NICKY MOORE Roshan Status: REG REF Re06/10/11 Age/Sex: 55/F Unit#: [id number] Location: [facility] : 57 -- Specimen: [id number] SOUT Spec Date: 06/10/[address] [facility] [address]: Fern Jean MD Spec Type: CYTOLOGY [...] evaluated with the assistance of the ThinPrep Pap Test Imaging System. The Pap Smear [...] three years. Initial evaluation performed by Roshan JURADO CT(ASCP) 06/11/11 Final Interpretation electronically signed by: Roshan JURADO CT(ASCP) 06/11/11 1456 -- DEPARTMENT OF PATHOLOGY, [address] [place] [address] [facility] Permit #[id number] Uziel South M.D. Director Ally Hooks M.D. Triage Clinician Dir vargas -- Procedures Date CPT Code Description Status 03/08/2018 Mammogram Completed 02/12/2018 91237 Echocardiography, Transesophageal, Real Time W/Image 2D Completed W/W/O M-M 02/12/2018 41926 Pulse Wave/Continuous-Interp.RPT Completed 02/12/2018 53358 Color Flow Doppler/Interp & Reprt Completed 02/12/2018 91306 Moderate Sedation Services; Same Phys Intl 15 Mins; PT Completed >=5 Years 02/12/2018 36883 Moderate Sedation Services; Same Phys Each Additional Completed 15 Mins 02/04/2018 83922 ECHO Transthorasic Realtime 2D W Doppler & Color Flow Completed Hosp 11/18/2017 Bone Mineral Density Test Completed 11/17/2017 38093 ECHO Transthorasic Realtime 2D W Doppler & Color Flow Completed Hosp 11/09/2017 49141 EKG Tracing & Interpretation Completed 10/14/2017 23087 Moderate Sedation Services; Same Phys Intl 15 Mins; PT Completed >=5 Years 10/14/2017 64575 Cardioversion Completed 02/17/2017 Mammogram Completed 11/17/2016 30988 EKG Tracing & Interpretation Completed 08/24/2016 46123 EKG, Interpretation Only Completed 08/23/2016 64969 EKG, Interpretation Only Completed 02/15/2016 Mammogram Completed 01/16/2016 74844 Polysomnography Sleep Staging 4+ Parameters Completed 12/03/2015 41695 EKG Tracing & Interpretation Completed 10/10/2015 64399 EKG Tracing & Interpretation Completed 03/19/2015 17925 ECHO Transthorasic Realtime 2D W Doppler & Color Flow Completed Hosp 12/14/2014 21025 EKG Tracing & Interpretation Completed 10/31/2014 Mammogram Completed 10/31/2014 Bone Mineral Density Test Completed 09/29/2014 50332 EKG, Interpretation Only Completed 09/13/2014 19464 EKG Tracing & Interpretation Completed 03/06/2014 07562 ECHO Transthorasic Realtime 2D W Doppler & Color Flow Completed Hosp 11/07/2013 Mammogram Completed 09/05/2013 08553 EKG Tracing & Interpretation Completed 07/22/2013 77178 Stress Test Completed 07/22/2013 12326 Myocardial Perfusion Imaging Tomographic (Spect) Completed Multiple Studies 07/19/2013 23140 Stress Test Completed 07/13/2013 27303 Holter Monitor Review (24 hr)dr review & geoffreyp only Completed 07/11/2013 98986 EKG Tracing & Interpretation Completed 07/05/2013 18754 ECHO Transthorasic Realtime 2D W Doppler & Color Flow Completed Hosp 06/23/2013 79487 EKG Tracing & Interpretation Completed 09/09/2012 Bone Mineral Density Test Completed 09/09/2012 Mammogram Completed 06/15/2012 74331 EKG Tracing & Interpretation Completed 07/01/2011 Colonoscopy Completed 04/15/2011 Mammogram Completed 03/19/2011 91090 EKG Tracing & Interpretation Completed 02/07/2010 Mammogram Completed 02/07/2010 Bone Mineral Density Test Completed 01/30/2010 96746 EKG Tracing & Interpretation Completed 01/05/2009 53549 EKG Tracing & Interpretation Completed 12/27/2007 94802 EKG Tracing & Interpretation Completed 12/27/2007 09266 EKG Tracing & Interpretation Completed 11/24/2006 94816 EKG Tracing & Interpretation Completed Encounters Type Date Location Provider CPT E/M Dx Office Visit 01/19/2018 [facility] Oscar Bone M.D., 87077 Q87.40 2:40p [facility] AT [facility], [facility] Office Visit 11/09/2017 [facility] Oscar Bone M.D., 15737 I48.0 1:20p [facility] AT [facility], [facility] Q87.40 I34.1 Office Visit 10/20/2017 10:30a [facility] Internal Medicine Zulay Kraus M.D. 50349 I48.0 - Bakari E03.9 Z23 Office Visit 10/14/2017 11:59a [facility] Jane Henderson M.D. 10085 I48.0 [facility] Office Visit 10/14/2017 8:30a [facility] Yuriy Bunch, 50963 I48.91 Hospitalists M.D. Q87.40 E03.9 Office Visit 10/13/2017 8:29a [facility] Berna Madison, 98894 I48.91 Hospitalists D.O. E03.9 Q87.40 Office Visit 05/27/2017 2:00p [facility] [place]at[place] [address] L81.7 Office Visit 05/27/2017 10:30a [facility] Internal Medicine - Zulay Kraus, 91096 M81.0 Bakari Lugo E87.6 E83.42 R21 Z13.220 Z00.01 Z12.4 H61.22 Office Visit 11/17/2016 3:00p [facility] Oscar Bone M.D., 48880 Q87.40 [facility] AT [facility], FSCAI I34.0 I48.0 I34.1 Office Visit 09/09/2016 9:30a [facility] Agosto, 19376 K35.3 Packer Operator Automatic M.D. Office Visit 08/25/2016 1:41p [facility], Ezequiel Russell, 95381 I48.0 Hospitalists MJuan K35.3 E03.9 Office Visit 08/24/2016 1:41p [facility] Assoc, Makeda Pennylinoel, FACILITY MAINTENANCE SUPERVISOR 42560 I48.0 Hospitalists K35.3 E03.9 Office Visit 08/24/2016 4:36p [facility] Viktor Pedro, 33950 I48.0 DO [facility] Office Visit 08/23/2016 1:39p [facility] Assoc, Makeda Pennylionel, 40744 I48.0 Hospitalists FACILITY MAINTENANCE SUPERVISOR K35.3 E03.9 Office Visit 08/21/2016 2:00p [facility] [place] [address] R35.0 Office Visit 02/07/2016 10:45a [place] [address] G47.33 Services Of [facility] Office Visit 02/05/2016 11:10a [facility] Internal Medicine - Zulay Kraus, 33273 Z00.00 Jeny Lugo Z12.31 E83.42 E87.6 Z11.59 Office Visit 12/18/2015 10:15a [place] [address] G47.9 Services Of [facility] Office Visit 12/03/2015 3:20p [facility] Meir Bone M.D., 64777 I48.0 [facility] AT [facility], FSCAI I34.0 Q87.40 Office Visit 10/22/2015 11:10a [facility] Internal Medicine Zulay Kraus M.D. 39680 B34.9 - Jeny I48.0 R74.0 E87.6 E83.42 R06.83 Office Visit 10/19/2015 10:43a [facility], Yuriy Bunch, 15375 I48.91 Hospitalraghav Lugo Q87.40 I95.9 Office Visit 10/18/2015 3:45p [facility] Arlen Henderson M.D. 48115 I48.0 [facility] Office Visit 10/18/2015 10:42a [facility], Danialmarge Mccain, 99545 I48.91 Hospitalists N.P. Q87.40 I95.9 Office Visit 10/10/2015 3:40p [facility] Meir Bone M.D., 27239 I34.0 [facility] AT [facility], FSCAI I48.0 I77.810 Office Visit 09/20/2015 11:50a [facility] Internal Medicine Zulay Kraus, 54346 B30.1 - Jeny Lugo Office Visit 02/19/2015 9:45a [facility] Jd Dennis M.D. 64476 726.10 C.M.A. Office Visit 02/05/2015 11:00a [facility] Jd Dennis M.D. 77376 840.4 C.M.A. Office Visit 12/14/2014 3:20p [facility] Meir Bone M.D., 78308 427.31 [employer] AT [facility], FSCAI 424.0 759.82 Office Visit 11/07/2014 10:50a [facility] Internal Medicine Zulay Kraus, 58668 733.01 - Jeny Lugo 786.2 Office Visit 10/17/2014 9:10a [facility] Internal Medicine Zulay Kraus M.D. 88937 V70.0 - Jeny V76.10 244.9 733.90 840.4 V04.81 V76.2 V06.1 V72.31 Office Visit 09/30/2014 12:15p [facility], Yuriy Bunch, 83044 427.31 Hospitalists Brittney 244.9 759.82 Office Visit 09/30/2014 10:58a [facility] Cali Becker, 87302 427.31 M.Torie 759.82 Office Visit 09/29/2014 12:29p [facility] Jared Garcia, 74009 427.31 [facility] Brittney, [facility], FASNC 424.0 Office Visit 09/29/2014 12:14p [facility], Yuriy Bunch, 67019 427.31 Hospitalists MJuan 244.9 759.82 Office Visit 09/13/2014 2:20p [facility] Meir Bone M.D., 72463 427.31 [facility] AT [facility] 424.0 Office Visit 03/21/2014 11:40a [facility] Internal Medicine Fern Jean M.D., 22125 088.81 - [place] FACP 300.00 Office Visit 09/05/2013 9:20a [facility] Internal Medicine Fern Jean M.D., 60608 780.79 - [place] FACP V70.0 V72.31 V76.10 424.0 427.31 244.9 759.82 V04.81 272.0 v76.2 Office Visit 08/04/2013 9:15a [facility] Meir Bone M.D., 17816 427.31 [facility] 424.0 Office Visit 07/11/2013 10:30a [facility] Meir Bone M.D., 68961 424.0 [facility] AT [facility] Office Visit 06/29/2013 10:00a [facility] Internal Medicine Fern Jean M.D., 11638 427.31 - [place] FACP 244.9 Office Visit 06/23/2013 8:40a [facility] Internal Medicine Fern Jean M.D., 63818 786.59 - [place] FACP 427.31 Office Visit 06/01/2013 10:20a [facility] Internal Medicine Fern Jean M.D., 32367 088.81 - [place] FACP Office Visit 09/01/2012 1:20p [facility] Internal Medicine Fern Jean M.D., 36414 V70.0 - [place] FACP V72.31 V76.10 244.9 759.82 733.90 300.00 V04.81 Office Visit 07/05/2012 11:00a [facility] Internal Medicine - Oanh Bateman M.D. 13914 300.00 [place] Office Visit 06/15/2012 11:20a [facility] Internal Medicine - Oanh Bateman M.D. 85306 759.82 [place] 244.9 785.1 300.00 Office Visit 06/10/2011 2:20p DO Not Use [employer] [facility] Fern Miranda, 40948 759.82 M.D., FACP 477.9 V72.31 V70.0 244.9 Office Visit 03/19/2011 2:15p DO Not Use [employer] Fern Miranda, 02957 366.00 M.D., FACP 759.82 V72.84 V76.12 Office Visit 06/25/2010 4:15p DO Not Use [employer] Fern Miranda, 08976 692.6 M.D., FACP Office Visit 02/27/2010 11:00a DO Not Use [facility] Fern Miranda, 08169 733.90 M.D., FACP Office Visit 01/30/2010 9:15a DO Not Use [facility] Fern Miranda, 56547 V72.31 M.D., FACP 759.82 V04.81 Office Visit 07/31/2009 3:00p DO Not Use Francia Lancaster, 26006 692.6 [employer] [facility] N.P. Office Visit 02/01/2009 2:30p DO Not Use Fern Jean M.D., 48427 716.99 [employer] [facility] FACP 759.82 Office Visit 01/05/2009 1:15p DO Not Use [facility] Fern Miranda, 17970 V72.31 M.D., FACP 719.40 759.82 244.9 V04.81 Office Visit 05/02/2008 10:45a DO Not Use [facility] Fern Miranda, 62837 V07.8 M.D., FACP Office Visit 02/07/2008 11:15a DO Not Use [facility] Fern Miranda, 55990 733.90 M.D., FACP Office Visit 12/27/2007 10:45a DO Not Use [facility] Fern Miranda, 43203 V72.31 M.D., FACP 733.90 244.9 759.82 272.0 Office Visit 11/24/2006 11:30a DO Not Use [facility] Fern Miranda, 21651 V72.31 M.D., FACP V04.81 Office Visit 09/15/2006 2:15p DO Not Use [employer] Jean, 77142 466.0 M.D., FACP Plan of Care 07/29/2018 - Henry Molina, DAVIDM25.511 Pain in right shoulderNew Medication: Baclofen 10 mgTramadol HCL 50 mgNew Therapy:Physical TherapyComments:I recommend using heat to the area frequently. I have prescribed the baclofen that we discussed. This may make you drowsy.You can use the tramadol if pain is severe. This can be taken with the Tylenol.You can work with your physical therapist about this.
[2018-08-09 17:07] LABS: ABS Basophils 0 10^3/ul (0-0.2); ABS Eosinophils 0.1 10^3/ul (0-0.6); ABS Monocytes 0.6 10^3/ul (0-0.8); ABS Neutrophils 3.2 10^3/ul (1.5-7.7); ABS Nucleated RBC 0 10^3/ul; Eosinophil % 1.6 % (0-6); Hematocrit 40 % (35-47); Hemoglobin 13.3 g/dl (12.0-16.0); Mean Corpuscular HGB Conc 34 g/dl (31-36); Mean Corpuscular Hemoglobin 30 pg (27-31); Mean Corpuscular Volume 89 fL (80-97); Nucleated Red Blood Cells % 0.1; Platelet Count 182 10^3/ul (150-450); Red Blood Count 4.44 10^6/ul (4.00-5.40); Red Cell Distribution Width 14 % (10.5-15)
--- NOTE | 2018-08-09 17:21 | RAD ---
Indication: Palpitations. Single frontal view of the chest performed at 1711 hours was reviewed. Comparison is made with previous exam dated January 08, 2018. No mediastinal shift is noted. Heart is of normal size and configuration. Lung sandoval appear clear. Scoliosis of the thoracic aorta is noted unchanged from previous exam. IMPRESSION: NO ACTIVE CARDIOPULMONARY DISEASE IS NOTED.
[2018-08-09 17:25] LABS: EGFR Non-African American 44.8 (>60)
[2018-08-09] MEDS ORDERED: Iodixanol* (CONTRAST) 320 MG/ML 100 ML SDV IV ONE (17:34)
--- NOTE | 2018-08-09 19:27 | RAD ---
EXAM: CT Angiography Chest With Intravenous Contrast CLINICAL HISTORY: 62 years old, female; Pain; Chest pain; Other: Cp into back; Prior surgery; Surgery date: 6+ months; Surgery type: Bl cataract surgery, eye strabismus as child; Additional info: Cp into back, evaluate known aortic aneurysm TECHNIQUE: Axial computed tomographic angiography images of the chest with intravenous contrast using pulmonary embolism protocol. All CT scans at this facility use at least one of these dose optimization techniques: automated exposure control; mA and/or kV adjustment per patient size (includes targeted exams where dose is matched to clinical indication); or iterative reconstruction. 3D and MIP reconstructed images were created and reviewed. Coronal and sagittal reformatted images were created and reviewed. CONTRAST: 100 mL of [id number] administered intravenously. COMPARISON: No relevant prior studies available. FINDINGS: Pulmonary arteries: Pulmonary arteries are well opacified to the subsegmental branches. Normal caliber main pulmonary artery. No filling defects throughout the pulmonary artery tree. Aorta: Mildly aortic atherosclerotic calcifications. No aortic dissection, aneurysm, or rupture. Lungs: Stable nodule with central calcification medial segment right middle lobe measures 1.5 cm consistent with a granuloma. Additional granuloma superior lingula measures 1 cm. No consolidation or masses. No bronchiectasis, peribronchial thickening, or luminal defects. Pleural space: Normal. No significant effusion. No pneumothorax. Heart: Biatrial and left ventricular enlargement. No pericardial effusion. No evidence of RV dysfunction. Thyroid: Enlarged heterogeneous thyroid with few enhancing nodules. The largest in the right upper pole measures 1 cm (series 2, image 20). Bones/joints: Dextroscoliosis of the midthoracic spine centered at T8-T9. No fractures. No suspicious bone lesions. No dislocation. Soft tissues: Normal. Lymph nodes: Normal. No enlarged lymph nodes. IMPRESSION: 1. No aortic dissection, aneurysm, or rupture. No pulmonary emboli. 2. Several small thyroid nodules. ACR White Paper guidelines (Camron JK, et al. JACR 2015;12(2):143-50) suggest that no follow-up is necessary. 3. Cardiomegaly without overt failure. EXAM: CT Angiography Abdomen and Pelvis With Intravenous Contrast CLINICAL HISTORY: 62 years old, female; Pain; Chest pain; Other: Cp into back; Prior surgery; Surgery date: 6+ months; Surgery type: Bl cataract surgery, eye strabismus as child; Additional info: Cp into back, evaluate known aortic aneurysm TECHNIQUE: Axial computed tomographic angiography images of the abdomen and pelvis with intravenous contrast. All CT scans at this facility use at least one of these dose optimization techniques: automated exposure control; mA and/or kV adjustment per patient size (includes targeted exams where dose is matched to clinical indication); or iterative reconstruction. 3D and MIP reconstructed images were created and reviewed. Coronal and sagittal reformatted images were created and reviewed. CONTRAST: 100 mL of [id number] administered intravenously. 100 mL of [id number] administered intravenously. COMPARISON: CTA CHEST CTA CHEST 11/18/2017 2:43 PM FINDINGS: VASCULATURE: Aorta: Mild aortic atherosclerotic calcifications. No aortic dissection, aneurysm, or rupture. Celiac trunk and mesenteric arteries: Normal. No occlusion or stenosis. Renal arteries: Normal. No occlusion or significant stenosis. Iliac arteries: Normal. No occlusion or stenosis. Lung bases: Normal. No mass. No consolidation. ABDOMEN: Liver: Normal. No mass. Gallbladder and bile ducts: Normal. No calcified stones. No ductal dilation. Pancreas: Normal. No ductal dilation. No mass. Spleen: Normal. No splenomegaly. Adrenals: Normal. No mass. Kidneys and ureters: Normal. No hydronephrosis. No solid mass. Stomach and bowel: Normal. No obstruction. No mucosal thickening. PELVIS: Appendix: No findings to suggest acute appendicitis. Bladder: Thin-walled bladder with no focal nodularity, perivesicular stranding, or calcifications. Reproductive: Uterus and ovaries are normal. ABDOMEN and PELVIS: Intraperitoneal space: Normal. No significant fluid collection. No free air. Bones/joints: The spine demonstrates mild degenerative changes at multiple levels. No fractures. No suspicious bone lesions. No dislocation. Soft tissues: Normal. No hernias. Lymph nodes: Normal. No enlarged lymph nodes. IMPRESSION: No aortic dissection, aneurysm, or rupture. No additional findings to correlate with patient's symptomatology.
[2018-08-09] MEDS ORDERED: Metoprolol Tartrate IV* 1 MG/ML 5 ML VIAL IV ONE (20:01)
[2018-08-09] MEDS ORDERED: Diltiazem DRIP* 100 MG/100 ML ADDV.BAG IVPB ONE (20:11)
[2018-08-09] MEDS ORDERED: Acetaminophen TAB* 325 MG PO ONE (20:48)
[2018-08-09] MEDS ORDERED: NS 0.9% 100 ML* 100 ML ONE (20:51)
[2018-08-09] MEDS ORDERED: Diltiazem IV VIAL* 125 MG in NS 0.9% 100 ML* 100 ML IVPB ONE (21:00)
[2018-08-09] MEDS ORDERED: Acetaminophen TAB* 325 MG PO PRN (21:11)
[2018-08-09] MEDS ORDERED: Cyclobenzaprine TAB* 10 MG PO PRN (21:15)
[2018-08-09] MEDS: NS 0.9% 1000 ML* 1,000 ML IV SCH ×3 (21:55→23:55)
--- NOTE | 2018-08-09 23:04 | HP ---
CC: Dr. Zulay Kraus; Dr. Bone; Dr. Garcia * HISTORY AND PHYSICAL: DATE OF ADMISSION: 08/09/18 PRIMARY CARE PROVIDER: Dr. Zulay Kraus. PRIMARY COMPUTER TERMINAL OPERATOR: Dr. Bone. CONSULTING COMPUTER TERMINAL OPERATOR: Dr. Garcia. ATTENDING PROVIDER: Dr. Mcgowan * (DICTATED BY SANTO ROSALES NP) CHIEF COMPLAINT: Palpitations. HISTORY OF PRESENT ILLNESS: Mrs. Soto is a 62-year-old female patient. She has a history of AFib and she has a history of thoracic aortic ectasia, osteopenia, mitral valve insufficiency, hypothyroidism and Marfan's syndrome. She does states that she noted on Thursday, she was having palpitations intermittently in her chest. She went to bed, the palpitations had gone away. She does state in association with this, she was having some right-sided shoulder pain and discomfort starting in the neck, going to the shoulder described as spasm. She had no recent trauma or injury. No repetitive motion with this. She denies any weakness to the arms or to the legs or denies having any numbness or tingling down the right arm associated with this. She does state that she has been having this pain intermittently for 2 weeks with no exacerbating or alleviating factors. She saw in fact her primary twice for this , was recently started on baclofen, which did not help and then started again on Flexeril. She does state that she drank tea Thursday afternoon, but she said this was not out of the ordinary for, she was concerned though because she felt that at around 4:00 on Thursday, she was in AFib and it was not going away. 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 Afterwords, she was not having any chest tightness, heaviness, or pain. She was just having tightness along the right shoulder, into the right neck intermittently. She denied any shortness of breath. She does state that when she is in AFib, she has decreased activity tolerance. She denied having any abdominal pain. There has been no nausea, no vomiting. She denied having any dysuria. There has been no fevers or chills. She came into the ED. She was found to be in AFib with RVR. There was concern for this and we were asked to evaluate for admission. Again, she does have a history of paroxysmal atrial fibrillation. PAST MEDICAL HISTORY: Significant for: 1. AFib. 2. Thoracic aortic ectasia. 3. Osteopenia. 4. Mitral valve insufficiency. 5. Hypothyroidism. 6. Marfan's syndrome. PAST SURGICAL HISTORY: 1. She has had cataract extraction. 2. She has had polyp removal. MEDICATIONS: Home medications include: 1. Toprol-XL. She takes 25 mg at noon and 12.5 at bedtime. 2. Flaxseed oil 1000 mg daily. 3. Vitamin D 1000 units p.o. daily. 4. Calcium carbonate 1 tablet p.o. b.i.d. 5. Selenium 200 mcg p.o. daily. 6. Magnesium 250 mg p.o. b.i.d. 7. Vitamin C 500 mg daily. 8. Vitamin E 200 units p.o. daily. 9. Synthroid 100 mcg p.o. 6 days a week. 10. Xarelto 20 mg daily. 11. Multaq 400 mg p.o. b.i.d. 12. Potassium 10 mEq p.o. b.i.d. 13. Baclofen 5 mg p.o. t.i.d. as needed, which again is not helping her and she is no longer taking. 14. Flexeril 5 mg p.o. every 8 hours. ALLERGIES TO MEDICATIONS: Include SULFA and NICKEL. FAMILY HISTORY: Her mother had a history of stroke. Father had a history of [place] and Marfan. SOCIAL HISTORY: She does not smoke. She rarely drinks alcohol. She occasionally drinks tea on the weekend. She had 1 cup this weekend, which she normally does every weekend. Surrogate decision maker is her partner, Beto. REVIEW OF SYSTEMS: There is no documented fever. She denies having any significant weight change. There was no double vision. She denies having any ear discharge. There was no rhinorrhea. She denies having any sore throat. There was no thyroid enlargement. She denied having any chest pressure. She denies having any abdominal pain. No nausea, no vomiting. No dysuria, no frequency. There was no seizure, no loss of consciousness. No pruritus and no skin ulcerations. Review of 14 systems completed, all others negative. PHYSICAL EXAMINATION GENERAL: At this time, Mrs. Soto is a 62-year-old female patient. She is sitting in the ED stretcher. She does not appear to be in any acute distress. She appears to be well nourished and well developed. VITAL SIGNS: Blood pressure 115/87, pulse of 108, respirations of 18, O2 sat 95 %, temperature 98.8. HEENT: Head is atraumatic and normocephalic. Eyes: EOMs are intact. Sclerae anicteric and not pale. Throat: Oral mucosa appears to be moist. No oropharyngeal erythema. NECK: Supple. LUNGS: Clear to auscultation bilaterally. No wheezes, rales, or rhonchi. HEART: Sounds S1, S2. Irregularly irregular rate. No murmurs, rubs, or gallops. ABDOMEN: Soft, flat, nontender. Bowel sounds were present. EXTREMITIES: Pulses were 2+ throughout. She is moving all 4 extremities with 5 /5 strength. NEUROLOGICAL: The patient is awake, alert. She is oriented x3. She had no gross focal deficits. SKIN: Grossly intact. DIAGNOSTIC STUDIES/LAB DATA: Today revealed WBC of 5.0, RBC of 4.44, hemoglobin of 13.3, hematocrit of 40, platelet count of 182. Sodium 137, potassium 4.3, chloride of 105, bicarb 25, BUN 17, creatinine of 1.22, slightly elevated from her baseline of 0.8, glucose was 90, lactic 0.6, calcium 9.0. Total bili 0.6, AST 18, ALT 15, alk phos 41. Troponin 0.01, repeat was 0. Albumin was 3.9. She had multiple imaging in the ED. Chest x-ray showed no active cardiopulmonary disease. She had a CTA chest, abdomen, and pelvis. Impression: No aortic dissection, aneurysm, or rupture. No pulmonary emboli. Several small thyroid nodules suggest that no followup is necessary. Next, cardiomegaly without heart failure. No aortic dissection, aneurysm, or rupture. No additional labs and findings to co- relate with patient's symptomatology of the abdomen and pelvis portion of the CTA. The EKG today shows what appears to be atrial fibrillation with a rate of 102. She had depression in V4 and lead II. No elevation or T-wave inversions noted. Previous EKG, she did have subtle depression in V4 and V5 previously, but she was in a normal sinus rhythm. Old medical records were reviewed. ASSESSMENT AND PLAN: Mrs. Soto is a 62-year-old female patient coming into the ED today with complaints of palpitations, was found to be in atrial fibrillation with rapid ventricular response, which she has a history of paroxysmally. We were asked to evaluate for admission. She will be admitted under observation status for: 1. Atrial fibrillation with rapid ventricular response and etiology is unclear as to why she went into this now. She has been taking her medications. It certainly could have been related to caffeine. It certainly could have been related to pain, related to spasms in her right shoulder and neck area. Also, the Flexeril does have a less than 1% adverse reaction of cardiac arrhythmia, although I suspect this is unlikely; however, she did go in atrial fibrillation , she is down here, and cardiology had recommended starting the diltiazem drip, which we have started. She is on Xarelto already. The plan will be to start the diltiazem drip to try to get her cardioverted spontaneously with rate control and my goal is to try to get the heart rate less than 100 and we will go ahead and continue the Xarelto and make her n.p.o. after midnight for possible cardioversion and I am checking her TSH and magnesium. 2. Thoracic aortic ectasia. CTA chest, abdomen, and pelvis was stable. Follow with her primary care physician. 3. Right shoulder pain and muscle spasms. Again, she is following with her primary care physician. I am going to get the shoulder x-ray to make sure there was not any acute pathology, but on exam, she had full range of motion of the shoulder with no pain. May need to consider outpatient PT and outpatient followup with the Orthopedics. Again, I will defer to the PCP. 4. Mitral valve insufficiency. 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 5. Hypothyroidism. Checking a TSH. 6. Marfan's syndrome. Continue current medical regimen. 7. DVT prophylaxis. She is on Xarelto. I have added SCDs. 8. Code status. Full code. 9. Fluids, electrolytes, nutrition. She can have heart-healthy diet and n.p.o. after midnight. 10. Acute renal failure. Creatinine is 1.2. She is normally 0.8. I am going to go ahead and give her hydration with normal saline at 100 an hour. We will get the urinalysis and urine sodium and urine random creatinine for FENa and I will get a bladder scan x1 to make sure she is not in urinary retention. TIME SPENT: On the admission was 60 minutes; greater than half the time was spent going over the plan of care with the patient and other half time was spent implementing plan of care. I did discuss the plan of care with my attending, Dr. Mcgowan, she is in agreement. SANTO ROSALES, DAVID [id number]/CPS #: [id number] TYLOR
[2018-08-09] MEDS: Dronedarone TAB* 400 MG PO SCH (23:09)
[2018-08-09] MEDS: Potassium Chlor TAB* 10 MEQ TAB.ER PO SCH (23:09)
[2018-08-10 01:23] LABS: Urine Appearance Clear; Urine Blood 1+ (Negative); Urine Color Straw; Urine Ketones Negative (Negative); Urine Protein Negative (Negative); Urine Red Blood Cell Trace(0-2/hpf) (Absent); Urine Specific Gravity 1.008 (1.010-1.030); Urine Urobilinogen Negative (Negative); Urine White Blood Cell Absent (Absent)
[2018-08-10] MEDS: NS 0.9% 1000 ML* 1,000 ML IV SCH (02:40)
[2018-08-10] MEDS ORDERED: Levothyroxine TAB* 100 MCG TAB PO SCH (06:00)
[2018-08-10 06:17] LABS: ABS Basophils 0.1 10^3/ul (0-0.2); ABS Eosinophils 0.1 10^3/ul (0-0.6); ABS Monocytes 0.6 10^3/ul (0-0.8); ABS Neutrophils 3.5 10^3/ul (1.5-7.7); ABS Nucleated RBC 0 10^3/ul; Eosinophil % 1.7 % (0-6); Hematocrit 36 % (35-47); Hemoglobin 12.3 g/dl (12.0-16.0); Lymphocyte % 18.7 % (25-47); Mean Corpuscular HGB Conc 34 g/dl (31-36); Mean Corpuscular Hemoglobin 30 pg (27-31); Mean Corpuscular Volume 89 fL (80-97); Mean Platelet Volume 8.6 um3 (7.4-10.4); Nucleated Red Blood Cells % 0.1; Platelet Count 158 10^3/ul (150-450); Red Blood Count 4.08 10^6/ul (4.00-5.40); Red Cell Distribution Width 14 % (10.5-15); White Blood Count 5.3 10^3/ul (3.5-10.8)
[2018-08-10 06:21] LABS: INR 1.24 (0.77-1.02)
[2018-08-10 06:33] LABS: EGFR Non-African American 68.9 (>60)
--- NOTE | 2018-08-10 07:57 | RAD ---
HISTORY: pain, right shoulder pain COMPARISONS: None relevant available at the time of dictation VIEWS: 4 , Frontal internal rotation, external rotation, outlet, and axillary views of the right shoulder FINDINGS: BONE DENSITY: Normal. BONES: There is no displaced fracture. JOINTS: There is no arthropathy. ALIGNMENT: There is no dislocation. SOFT TISSUES: Unremarkable. OTHER FINDINGS: None. IMPRESSION: NO ACUTE OSSEOUS INJURY. IF SYMPTOMS PERSIST, RECOMMEND REPEAT IMAGING. R1
[2018-08-10] MEDS: Dronedarone TAB* 400 MG PO SCH (08:58)
[2018-08-10] MEDS: Potassium Chlor TAB* 10 MEQ TAB.ER PO SCH (08:59)
[2018-08-10] MEDS ORDERED: Ascorbic Acid TAB* 500 MG PO SCH (09:00)
[2018-08-10] MEDS ORDERED: Magnesium Oxide TAB* 400 MG PO SCH (09:00)
[2018-08-10] MEDS ORDERED: Rivaroxaban TAB(*) 20 MG TAB PO SCH (09:00)
[2018-08-10] MEDS ORDERED: Metoprolol Succinate XL TAB* 25 MG PO SCH ×2 (12:00→21:00)
[2018-08-10] MEDS ORDERED: fentaNYL* 50 MCG/ML 2 ML VIAL (100 MCG VIAL) ONE (12:13)
[2018-08-10] MEDS ORDERED: Midazolam* 1 MG/ML 10 ML VIAL (10 MG) ONE (12:14)
[2018-08-10] MEDS ORDERED: Flumazenil* 0.1 MG/ML 5 ML MDV ONE (12:14)
[2018-08-10] MEDS ORDERED: Naloxone* 0.4 MG/ML 1 ML VIAL ONE (12:14)
[2018-08-10 15:40] VITALS: BP 92/58
--- NOTE | 2018-08-10 15:46 | PN ---
Subjective Date of Service: 08/10/18 Interval History: Ms. Soto reports that she is feeling better. She denies chest pain or SOB or palpitations. She continues to report right shoulder pain and plans to follow up with an technical project coordinator and massage therapist. Objective Active Medications: Acetaminophen (Tylenol Tab*) 650 mg PO Q4H PRN Ascorbic Acid (Vitamin C Tab*) 500 mg PO DAILY OZZIE Cyclobenzaprine HCl (Flexeril Tab*) 5 mg PO Q8H PRN Dronedarone (Multaq Tab*) 400 mg PO BID OZZIE Sodium Chloride (Ns 0.9% 1000 Ml*) 1,000 mls @ 100 mls/hr IV PER RATE OZZIE Levothyroxine Sodium (Synthroid Tab*) 100 mcg PO MoTuWeThFrSa@0600 OZZIE Magnesium Oxide (Magox 400 Tab*) 400 mg PO BID OZZIE Metoprolol Succinate (Toprol Xl Tab*) 25 mg PO DAILY@1200 OZZIE Metoprolol Succinate (Toprol Xl Tab*) 12.5 mg PO BEDTIME OZZIE Potassium Chloride (Klor Con Er Tab*) 10 meq PO BID OZZIE Rivaroxaban (Xarelto(*)) 20 mg PO DAILY OZZIE Vital Signs: Temp Pulse Resp BP Pulse Ox 98.4 F 54 16 92/58 97 08/10/18 15:46 08/10/18 15:31 08/10/18 15:31 08/10/18 15:31 08/10/18 15:31 Oxygen Devices in Use Now: None Appearance: Female lying in bed in NAD Eyes: No Scleral Icterus Ears/Nose/Mouth/Throat: Mucous Membranes Moist Neck: Trachea Midline Respiratory: Symmetrical Chest Expansion and Respiratory Effort, Clear to Auscultation Cardiovascular: NL Sounds; No Murmurs; No JVD, No Edema Abdominal: NL Sounds; No Tenderness; No Distention Lymphatic: No Cervical Adenopathy Extremities: No Edema Skin: No Rash or Ulcers Neurological: Alert and Oriented x 3, NL Muscle Strength and Tone Nutrition: Taking PO's Result Diagrams: 08/10/18 06:04 08/10/18 06:04 Assess/Plan/Problems-Billing Assessment: Ms. Soto is a 62 yo F with a PMH of afib who was admitted on 08/09/18 with symptomatic afib. - Patient Problems (1) Atrial fibrillation Comment: - S/P cardioversion, appreciate consult from Dr. Smith. Recommends continue current medication regimen and follow up outpatient. - Continue xarelto, multaq and metoprolol. (2) Hypothyroidism Comment: TSH 7.01 10/13/17. Increase levothyroxine to 100 mcg daily. (3) DVT prophylaxis Comment: Per surgery. Patient on SQ Heparin. (4) Full code status Status and Disposition: OBV. Discharge to home.
--- NOTE | 2018-08-10 19:14 | CONS ---
CC: Dr. Kraus * CARDIOLOGY CONSULTATION: DATE OF CONSULT: 08/10/18 INDICATION FOR CONSULTATION: Atrial fibrillation. HISTORY OF PRESENT ILLNESS: The patient is a 62-year-old female with a history of Marfan syndrome, history of moderately dilated ascending aorta, history of paroxysmal atrial fibrillation. The patient states that yesterday, she noticed the onset of sudden rapid heart beat and profound weakness. The patient states that she has been having muscle spasms on her right neck for 2 weeks. She recently got started on Flexeril, which helped her discomfort somewhat, but then she ended up with this episode of atrial fibrillation, she came to the emergency room last night with rapid ventricular response, she was started on diltiazem drip today. The patient's main complaint is just overall fatigue associated with her atrial fibrillation and her right shoulder, neck muscle spasms. She denies any true chest pain. She denies any orthopnea. She denies any lightheaded, dizziness, or syncope. OUTPATIENT MEDICATIONS: 1. Levothyroxine 100 mcg a day. 2. Potassium 10 mEq a day. 3. Magnesium 250 mg twice a day. 4. Metoprolol succinate 25 mg a day. 5. Xarelto 20 mg a day. 6. Multaq 400 mg b.i.d. ALLERGIES: She is intolerant of SULFA medications. FAMILY HISTORY: Father had a history of Marfan's, of dissection at age 43. Mother of stroke. SOCIAL HISTORY: She is single. 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 She denies tobacco or alcohol use. She tries to exercise 2 days a week. REVIEW OF SYSTEMS: Positive for shoulder and neck pain, negative for fevers or chills, negative for change in the bowel or bladder habits. Other 12-point review was unremarkable. PHYSICAL EXAM: Height is 5 feet and 10 inches, weight is 175 pounds, heart rate is 106, blood pressure 99/73, respiratory rate is 16, temperature 98.9. Sclerae anicteric. Oropharynx is pink without erythema. Carotids are 2+ without bruits. JVD is normal. Thyroid is normal. Cardiac Exam: S1, S2 without any murmurs, rubs, or gallops. PMI is normal. Lungs are clear to auscultation bilaterally with no dullness to percussion. Abdomen is soft, nontender, nondistended with normoactive bowel sounds. Extremities show no edema. She has 2+ pulses throughout. The patient is awake and alert and oriented. She moves all 4 extremities equally. The patient does have long fingers and longer torso consistent with Marfan's. DIAGNOSTIC STUDIES/LAB DATA: Chemistry is within normal limits. AST and ALT are negative. TSH 5.71. Troponins negative x3. CBC within normal limits. EKG shows atrial fibrillation. The patient's echocardiogram in January of 2018 shows normal LV size and systolic function. Normal aortic valve. Her mitral valve shows mild prolapse with moderate central mitral regurgitation. Her ascending aorta measured 4.5 cm. IMPRESSION AND PLAN: This is a 62-year-old female with a history of Marfan syndrome, history of paroxysmal atrial fibrillation who has been having muscle spasm for the past 2 weeks or so. The patient started flecainide 3 days ago and then had an episode of atrial fibrillation last night. The patient continues in atrial fibrillation, her vital signs are relatively stable. The patient is on chronic Multaq and anticoagulation with Xarelto. My recommendation is that the patient undergo cardioversion. This has been explained in detail and the patient is willing to proceed. I do not think any medication changes are necessary. The patient states her last episode of atrial fibrillation was in September 2017, which is almost a year ago. The patient will follow up with [facility] as an outpatient. [id number]/[facility]PS #: [id number] MTDD
[2018-08-10] MEDS ORDERED: Diltiazem IV VIAL* 125 MG in NS 0.9% 100 ML* 100 ML IVPB SCH (21:00)
--- NOTE | 2018-08-10 21:19 | CARD ---
CC: Dr. Kraus * CARDIOVERSION REPORT: DATE OF PROCEDURE: 08/10/18 - ROOM #451 PROCEDURE: Cardioversion. INDICATION: Atrial fibrillation. The patient is a 62-year-old female with a history of Marfan syndrome, history of paroxysmal atrial fibrillation, who notes the onset of atrial fibrillation yesterday. She was admitted to the hospital. She was placed on the Cardizem drip. Cardioversion was recommended and the patient is on chronic anticoagulation with Xarelto. DESCRIPTION OF PROCEDURE: The patient was in a fasting state. Informed consent had been obtained prior to the procedure. All labs were reviewed. The patient was given 4 mg of Versed and 50 mcg of fentanyl for conscious sedation. The patient was cardioverted with 150 joules of synchronized biphasic energy. The patient converted to normal sinus rhythm. The patient tolerated the procedure well with no complications. The patient was discharged on her usual medication. She will follow up with [facility]. [id number]/[facility] #: [id number] [place]
--- NOTE | 2018-08-11 00:40 | DS ---
CC: Dr. Kraus * [facility] MEDICINE DISCHARGE SUMMARY: DATE OF ADMISSION: 08/09/18 DATE OF DISCHARGE: 08/10/18 PRIMARY CARE PHYSICIAN: Dr. Kraus. ATTENDING PHYSICIAN: Rebecca Cohen MD * (dictation provided by Marquita Swain NP) PRIMARY DIAGNOSIS: Symptomatic atrial fibrillation. SECONDARY DIAGNOSES: 1. History of paroxysmal atrial fibrillation status post cardioversion. 2. Thoracic aortic ectasia. 3. Osteopenia. 4. Mitral valve insufficiency. 5. Hypothyroidism. 6. Marfan's syndrome. PAST SURGICAL HISTORY: 1. Cataract extraction. 2. Polyp removal. MEDICATIONS: Outpatient are unchanged. 1. Toprol-XL 25 mg at noon and 12.5 at bedtime. 2. Flaxseed oil 1000 mg daily. 3. Vitamin D 1000 units p.o. daily. 4. Calcium carbonate 1 tab p.o. b.i.d. 5. Selenium 200 mcg p.o. daily. 6. Magnesium 250 mg p.o. b.i.d. 7. Vitamin C 500 mg daily. 8. Vitamin E 200 units p.o. daily. 9. Synthroid 100 mcg p.o. 6 days a week. 10. Xarelto 20 mg p.o. daily. 11. Multaq 400 mg p.o. b.i.d. 12. Potassium 10 mEq p.o. b.i.d. 13. Flexeril 5 mg p.o. q.8 hours p.r.n. HOSPITAL COURSE: Ms. Soto is a 62-year-old female with past medical history of paroxysmal atrial fibrillation status post cardioversion who presented to the hospital on 08/09/18 with concern for palpitations. Please see the dictated H and P from Ryan Mccain NP for complete details. In brief, the patient states she has had intermittent palpitations since the Thursday prior to admission. She also describes some pain along her right shoulder and to her neck and described as muscle spasm. She had no recent trauma or injury to the neck. In the emergency room, she was confirmed to be in atrial fibrillation with heart rate of around 100. Her workup included chest x-ray, which was read as follows: "No active cardiopulmonary disease is noted." She had a chest, abdomen, pelvis CTA, which was read as follows: "No aortic dissection aneurysm or rupture. No pulmonary emboli, several small thyroid nodules. ACR white paper guidelines suggested no follow up is necessary. Cardiomegaly without overt failure. Shoulder x-ray was read as follows "no acute osseous injury if symptoms persist recommend repeat imaging." Ms. Soto was placed in the observation in the hospital. She was seen in consultation by cardiology who recommended a cardioversion as she was symptomatic despite the fact that her rate was controlled on Cardizem drip. Her electrolytes are appropriate at 4.3 for potassium and magnesium of 2.0. She went on for cardioversion today with Dr. Smith, tolerated the procedure well and has remained in normal sinus rhythm since. Ms. Soto is medically stable for discharge to home. Dr. Smith recommends that she continues on her regular cardiac medications including Multaq and metoprolol as well as rivaroxaban for stroke prophylaxis. She will be following up with the cardiology team within next month. The patient was formerly seen Dr. Bone, but as he no longer sees outpatients, we recommended that she calls the office for the next available appointment with an alternative provider. DISPOSITION: Home. DIET: Regular. ACTIVITY: As tolerated. FOLLOWUP PLANS: Please follow up with [facility] cardiology regarding paroxysmal atrial fibrillation. TIME SPENT: Approximately 60 minutes were spent in the discharge of this patient, more than half the time was spent with the patient at the bedside reviewing the events leading up to this hospitalization, during this hospitalization, performing the physical examination, and reviewing the plan of care. MARQUITA SWAIN, DAVID [id number]/[facility] #: [id number] [place]
== END 2018-08-10 16:41 | disposition home or self-care (01) ==
LOC: ED 16:06 → MEDTELE 21:43
PROVIDERS: ADMIT Pediatrics; ATTEND Internal Medicine
DX: I48.91 Unspecified atrial fibrillation (principal); I77.810 Thoracic aortic ectasia; M85.80 Other specified disorders of bone density and structure, unspecified site; I34.0 Nonrheumatic mitral (valve) insufficiency; E03.9 Hypothyroidism, unspecified; Q87.40 Marfan syndrome, unspecified; R00.2 Palpitations
CPT/HCPCS: 36415; 71045; 71275; 74174; 80048; 80053; 81003; 81015; 82570; 83605; 83735; 84300; 84443; 84484; 85025; 85610; 92960; 93005; 99156; 99157; 99284; A9270-GY; J2250; J2310; J3010; J3490; Q9967

== ENCOUNTER → 2018-08-18 14:04 | Emergency (ER) | payer BC ==
[~2018-08-18 14:04] MED LIST: NS 0.9% 1000 ML* 2,000 ML IV ONE
--- OUTSIDE RECORDS SUMMARY | 2018-08-18 14:42 | XMS REPORT ---
:1955 External Reference #:[id number] Author Organization [employer] Address [address] [place] [place] [address] Phone [phone] Care Team Providers Name Role Phone Zulay Kraus MD Primary Care Physician Unavailable Payers Type Date Identification Numbers Payment Provider Subscriber Commercial Policy Number: [id number] [facility] Nicky Moore PayID: [id number] [address] [place] [address] Problems Date Description Provider Status Onset: 03/17/2011 Marfan's syndrome Fern Jean M.D., MIA Active Onset: 03/17/2011 Hypothyroidism Fern Jean M.D., MIA Active Onset: 09/13/2014 Atrial fibrillation Meir Bone M.D., [facility] Active Onset: 09/13/2014 Mitral valve disorder Meir Bone M.D., [facility], [facility] Active Note: mitral valave insufficiency Onset: 11/07/2014 Osteoporosis Zulay Kraus M.D. Active Onset: 11/07/2014 Scoliosis deformity of spine Zulay Kraus M.D. Active Onset: 02/19/2015 Tendinosis Zulay Kraus M.D. Active Note: rotatot cuff with AC joint OA Onset: 10/10/2015 Thoracic aortic ectasia Meir Bone M.D., [facility], [facility] Active Onset: 10/23/2015 Arachnoid cyst Zulay Kraus, M.D. Active Note: L anterior fossa Onset: 12/18/2015 Disturbance in sleep behavior Yudi Louie MD Active Onset: 11/17/2016 Paroxysmal atrial fibrillation Meir Bone M.D., [facility], [facility] Onset: 03/17/2011 Osteochondropathy Fern Jean M.D., FACP Inactive Inactive: 11/07/2014 Onset: 03/17/2011 Pure hypercholesterolemia Fern Jean M.D., FACP Inactive Inactive: 11/07/2014 Family History Date Family Member(s) Problem(s) Comments General Heart Disease : (age 43 Years) Father due to DC Father due to Marfan's () Mother due to Stroke () : (age 42 Years) First Brother due to Accident First Sister 67 First Sister Chronic Obstructive Pulmonary Disease (COPD) Social History Type Date Description Comments Marital Status Single Lives With Male 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 Metoprolol 12/14 Active Tablets ER 25mg 135ta 1.5 Meir Succinate ER /2014 24HR bs tablets by Stefek, mouth M.D., daily [facility], [facility] Xarelto 10/04 Active Tablets 20mg 90tab 1 by mouth s every day Brittney Bone, [facility] Selenium Active Tablets 1 po qd Flaxseed Oil Active Capsules 1 po qod Vit C, E, Active once a day Multaq Active Tablets 400mg 180ta take 1 bs tablet by Lizandro, radha M.D., twice a [facility], day [facility] Tramadol HCL Active Tablets 50mg take 1 tablet by mouth every 12 hours if needed for pain Baclofen 07/29 Hx Tablets 10mg 20tab take 12/01 M25.511 Henry s tab every Jesse, [employer] - 8 hours as 08/05 needed for muscle spasm Tramadol HCL 07/29 Hx Tablets 50mg 10tab 1 tablet M25.511 Henry s every 12 Jesse, [employer] - hours as 08/03 needed for pain. Zostavax 10/20 Hx Suspension 92396Czt/ 1unit sc x1 Rec 0.65ML s Nayana [...] and continue for 7 days after leaving [facility] n Potassium 04/03 Hx Tablets ER 10Meq [...] Part twice a Miranda, - day M.D., [facility] 09/12 Doxycycline 06/[address] 100mg 20cap 1 by mouth 088.81 Fern Hyclate Part s twice a Miranda, - day M.D., [facility] 06/23 Citalopram 06/15 Hx Tablets 10mg 90tab take 1 300.00 Fern Hydrobromide s tablet Miranda, - daily M.D., [facility] 09/12 Clonazepam 06/15 Hx Tablets 0.5mg 60tab take 1 300.00 Fern s tablet Miranda, - twice M.D., [facility] 09/12 daily needed Levothyroxine 10/06 Hx Tablets 50mcg 90tab take 1 Francia Sodium s tablet by Anisha, N.P. - mouth once 10/03 Nasonex 06/10 Hx Suspension 50mcg/Act 1unit 2 sprays 477.9 s to each Miranda, - nostril M.D., FACP 09/01 once daily Baby Aspirin 03/19 Hx Chewtabs 81mg 100un 1 tablet its by mouth Miranda, - when M.D., [facility] 12/25 traveling Malarone 10/21 Hx Tablets 250-100mg 27tab take 1 Fern s daily 2d Miranda, - prior to M.D., FACP 03/19 and 7d upon return home Ambien 07/16 Hx Tablets 5mg 20tab 1 tablet Amita s by mouth Cotton, at bedtime M.D. as needed for sleep insomnia Synthroid 07/16 Hx Tablets 50mcg 90tab 1 in the s am Milly Jean M.D., [facility] 10/06 Evista 07/16 Hx Tablets 60mg 90tab take 1 s tablet by Cotton, - mouth once M.D. 11/07 Propranolol HCL 07/16 Hx Tablets 40mg 180ta take 1 bs tablet by Miranda - radha Lugo, [facility] 10/04 twice a day Prednisone 06/25 Hx Tablets 10mg 10tab 1 po qd s Milly Jean M.D., [facility] 03/19 Malarone Hx Tablets 250-100mg 22tab po [...] CPT Code Status Date Vaccine Lot # [id number] Given 07/19/2018 Zoster (Shingles) Vaccine (HZV), Recombinant, Subunit, Adjuvanted 23248 Given 07/19/2018 Zoster (Shingles) Vaccine (HZV), Recombinant, Subunit, Adjuvanted 82266 Given 10/20/2017 Influenza Virus Vaccine, Quadrivalent, Split, [id number] Preservative Free 12587 Given 11/26/2016 Influenza Virus Vaccine, Quadrivalent, Split Virus, [place] Use 55117 Given 2015 Influenza Virus Vaccine, Quadrivalent, Split, Preservative Free 90822 Given 10/17/2014 Tdap - Tetanus/Diptheria/Acellular Pertussis [id number] 20690 Given 10/17/2014 Flu Vaccine Split Virus Preservative Free For [id number] Indiv 3Yr Older 51937 Given 09/05/2013 Flu Vaccine Split Virus Preservative Free For [id number] Indiv 3Yr Older [id number] Given 09/01/2012 Fluzone Vaccine [id number] 38869 Given 01/30/2010 Influenza Virus Vaccine, Pandemic Formulation 42739 Given 01/30/2010 Administration Swine Flu Shot 39383 Given 01/05/2009 Influenza Virus 3Yrs & Over 01449 Given 11/24/2006 Influenza Virus 3Yrs & Over 26930 Given 11/24/2006 Influenza Virus 3Yrs & Over 80506 Given 2003 Td Toxoids Adsorbed For Use [...] Result H/L Range Note Laboratory test finding 08/09/2018 Troponin-I (TnI) 0.00 ng/mL <0.04 CBC Auto Diff 08/09/2018 White Blood Count 5.0 10^3/uL 3.5-10.8 Red Blood Count 4.44 10^6/uL 4.00-5.40 Hemoglobin 13.3 g/dL 12.0-16.0 Hematocrit 40 % 35-47 Mean Corpuscular Volume 89 fL 80-97 Mean Corpuscular Hemoglobin 30 pg 27-31 Mean Corpuscular HGB Conc 34 g/dL 31-36 Red Cell Distribution Width 14 % 10.5-15 Platelet Count 182 10^3/uL 150-450 Mean Platelet Volume 9.0 um3 7.4-10.4 Abs Neutrophils 3.2 10^3/uL 1.5-7.7 Abs Lymphocytes 1.0 10^3/uL 1.0-4.8 Abs Monocytes 0.6 10^3/uL 0-0.8 Abs Eosinophils 0.1 10^3/uL 0-0.6 Abs Basophils 0 10^3/uL 0-0.2 Abs Nucleated RBC 0 10^3/uL Granulocyte % 64.4 % 38-83 Lymphocyte % 21.0 % Low 25-47 Monocyte % 12.2 % High 0-7 Eosinophil % 1.6 % 0-6 Basophil % 0.8 % 0-2 Nucleated Red Blood Cells % 0.1 Laboratory test finding 08/09/2018 Lactic Acid 0.6 mmol/L 0.5-2.0 1 Troponin-I (TnI) 0.01 ng/mL <0.04 Comp Metabolic Panel 08/09/2018 Sodium 137 mmol/L 135-145 Potassium 4.3 mmol/L 3.5-5.0 Chloride 105 mmol/L 101-111 Co2 Carbon Dioxide 25 mmol/L 22-32 Anion Gap 7 mmol/L 2-11 Glucose 90 mg/dL 70-100 Blood Urea Nitrogen 17 mg/dL 6-24 Creatinine 1.22 mg/dL High 0.51-0.95 BUN/Creatinine Ratio 13.9 8-20 Calcium 9.0 mg/dL 8.6-10.3 Total Protein 6.8 g/dL 6.4-8.9 Albumin 3.9 g/dL 3.2-5.2 Globulin 2.9 g/dL 2-4 Albumin/Globulin Ratio 1.3 1-3 Total Bilirubin 0.60 mg/dL 0.2-1.0 Alkaline Phosphatase 41 U/L 34-104 Alt 15 U/L 7-52 Ast 18 U/L 13-39 Egfr Non- 44.8 >60 Egfr 54.2 >60 2 Laboratory test finding 08/09/2018 Magnesium 2.0 mg/dL 1.9-2.7 Laboratory test finding 02/04/2018 TSH (Thyroid Stim Horm) 2.13 mcIU/mL 0.34-5.60 Free T4 (Free Thyroxine) 0.93 ng/dL 0.61-1.12 T3 Free 3.10 pg/mL 2.5-3.9 Laboratory test finding 01/08/2018 Troponin-I (TnI) 0.00 ng/mL <0.04 Laboratory test finding 01/08/2018 TSH (Thyroid Stim Horm) 2.84 mcIU/mL 0.34-5.60 CKMB 01/08/2018 CKMB ng/mL 1.8 ng/mL 0.6-6.3 CBC Auto Diff 01/08/2018 White Blood Count [...] Nucleated Red Blood Cells % 0 Inr/Protime 01/08/2018 Inr 2.10 High 0.77-1.02 Laboratory test finding 01/08/2018 Partial Thrombo Time 46.4 seconds High 26.0-36.3 PTT Lactic Acid 0.9 mmol/L 0.5-2.0 3 B-Type Natriuretic Peptide BNP 354 pg/mL High 4 Laboratory test finding 01/08/2018 Magnesium 1.9 mg/dL 1.9-2.7 Creatine Kinase(CK) 46 U/L 10-223 Troponin-I (TnI) 0.00 ng/mL <0.04 Comp Metabolic Panel 01/08/2018 Sodium 133 mmol/L [...] Egfr Non- 65.3 >60 Egfr 84.0 >60 5 Laboratory test finding 11/20/2017 TSH (Thyroid Stim Horm) 1.54 mcIU/mL 0.34-5.60 T3 Free 3.50 pg/mL 2.5-3.9 Free T4 (Free Thyroxine) 1.19 ng/dL High 0.61-1.12 Laboratory test finding 11/17/2017 Blood Urea Nitrogen BUN 15 mg/dL 6-24 Creatinine 11/17/2017 Creatinine 0.82 mg/dL 0.51-0.95 Egfr Non- 70.9 >60 Egfr 91.1 >60 6 Laboratory test finding 10/13/2017 Troponin-I (TnI) 0.01 [...] finding 10/13/2017 Lactic Acid 1.0 mmol/L 0.5-2.0 7 Comp Metabolic Panel 10/13/2017 Sodium 135 mmol/L [...] Egfr Non- 62.8 >60 Egfr 80.8 >60 8 Laboratory test finding 10/13/2017 Troponin-I (TnI) 0.00 ng/mL <0.04 Magnesium 2.0 mg/dL 1.9-2.7 D Dimer Quantitative < 200 ng/mL Less Than 230 9 Laboratory test finding 10/13/2017 TSH (Thyroid Stim [...] Egfr Non- 86.8 >60 Egfr 111.6 >60 10 Laboratory test finding 06/10/2017 Magnesium 1.8 mg/dL Low 1.9-2.7 Lipid Profile (Trig/Chol/HDL) 06/10/2017 Triglycerides 104 mg/dL 11 Cholesterol 182 mg/dL 12 HDL Cholesterol 42.5 mg/dL 13 LDL Cholesterol 119 mg/dL 14 Laboratory test 05/27/2017 Cytology SEE RESULT BELOW 15 finding Laboratory test 02/02/2017 TSH (Thyroid Stim [...] -36.3 PTT Lactic Acid 0.8 mmol/L 0.5-2.0 16 Comp Metabolic Panel 08/21/2016 Sodium 134 mmol/L [...] Egfr Non- 93.3 >60 Egfr 120.0 >60 17 Laboratory test finding 08/21/2016 Lipase 36 U/L 11.0-82.0 C Reactive Protein 78.75 mg/L High < 5.00 18 Urinalysis Profile 08/21/2016 Urine Color Colorless Urine Appearance Clear Urine Specific [place] 1.014 1.010-1.030 Urine pH 7.0 5-9 Urine Urobilinogen Negative Negative Urine Ketones Negative Negative Urine Protein Negative Negative Urine Leukocytes Negative Negative Urine Blood 1+ Negative Urine Nitrite Negative Negative Urine Bilirubin Negative Negative Urine Glucose Negative Negative Urine White Blood Cell Absent Absent Urine Red Blood Cell Trace(0-2/hpf) Absent Urine Bacteria Absent Absent Laboratory test finding 08/21/2016 Blood Culture SEE RESULT BELOW 19 Urine Culture And 08/21/2016 Urine Culture SEE RESULT BELOW 20 Sensitivities Laboratory test finding 08/21/2016 Cytology Non-Ornamental Plaster Sticker SEE RESULT BELOW 21 CBC Auto Diff 08/21/2016 White Blood Count [...] Egfr Non- 82.9 >60 Egfr 106.6 >60 22 Ua Routine 08/21/2016 Ua Specific [place] 1.010 Ua PH 5 Ua Color yellow [...] Egfr Non- 100.4 >60 Egfr 129.1 >60 23 Laboratory test finding 02/05/2016 Magnesium 1.9 mg/dL [...] Egfr Non- 91.7 >60 Egfr 117.9 >60 24 Laboratory test finding 11/16/2015 Magnesium 1.8 mg/dL [...] Egfr Non- 85.6 >60 Egfr 110.1 >60 25 Laboratory test finding 10/22/2015 Magnesium 1.8 mg/dL Low 1.9-2.7 Coxsackie A 10/22/2015 Coxsackie Virus Type A(2) <1:8 Ab Coxsackie Virus Type A(4) Ab <1:8 Coxsackie Virus Type A(7) Ab <1:8 Coxsackie Virus Type A(9) AB <1:8 Coxsackie Virus Type A(10) Ab <1:8 Coxsackie Virus Type A(16) Ab <1:8 26 Harrison Lux Comprehensive 10/22/2015 Ebv Capsid Ag IgG Ab Positive Negative Ebv Capsid Ag IgM Ab Negative Negative Harrison-Lux Nuclear Antigen Positive Negative Harrison-Lux Virus Interp See Comment 27 Laboratory test finding 10/22/2015 Digoxin 0.8 ng/ml 0.8-2.0 Laboratory test finding 10/18/2015 Magnesium 1.8 mg/dL Low 1.9-2.7 Troponin-I (TnI) 0.00 ng/mL <0.03 28 TSH (Thyroid Stim Horm) 1.39 ?IU/mL 0.34-5.60 [...] Egfr Non- 90.1 >60 Egfr 115.9 >60 29 Laboratory test finding 10/18/2015 Lactic Acid 0.8 [...] Egfr Non- 78.2 >60 Egfr 100.5 >60 30 Basic Metabolic Panel 12/16/2014 Sodium 134 mmol/L 133-145 Potassium 4.1 mmol/L 3.5-5.0 Chloride 103 mmol/L 101-111 Co2 Carbon Dioxide 30 mmol/L 22-32 Anion Gap 1 mmol/L Low 2-11 Glucose 72 mg/dL 70-100 Blood Urea Nitrogen 17 mg/dL 6-24 Creatinine 0.76 mg/dL 0.51-0.95 BUN/Creatinine Ratio 22.4 High 8-20 Calcium 9.1 mg/dL 8.6-10.3 Egfr Non- 78.2 >60 Egfr 100.5 >60 31 Laboratory test finding 11/13/2014 TSH (Thyroid Stimulating 1.75 IU/mL 0.34-5.60 Horm) Free T3 2.80 pg/mL 2.5-3.9 Free T4 0.93 ng/mL 0.61-1.12 Vitamin D, 25 Hydroxy 11/13/2014 25-Hydroxy Vitamin D2 4.5 ng/mL 25-Hydroxy Vitamin D3 32 ng/mL 25-Hydroxy Vitamin D Total 37 ng/mL 32 Pthi 11/13/2014 PTH Intact 3.4 pmol/L 1.3-9.3 Calcium (PTH Intact) 9.0 mg/dL 8.6-10.3 Laboratory test finding 10/20/2014 Rapid Influenza A B (SEE NOTE) 33 Antigen CBC Auto Diff 10/20/2014 White Blood [...] mmol/L Low 133-145 Potassium 3.9 mmol/L 3.5-5.0 34 Chloride 98 mmol/L Low 101-111 Co2 Carbon Dioxide 26 mmol/L 22-32 Anion Gap 6 mmol/L 2-11 Glucose 80 mg/dL 70-100 Blood Urea Nitrogen 9 mg/dL 6-24 Creatinine 0.68 mg/dL 0.51-0.95 BUN/Creatinine Ratio 13.2 8-20 Calcium 8.6 mg/dL 8.6-10.3 Egfr Non- 88.9 >60 Egfr 114.3 >60 35 Laboratory test finding 10/17/2014 Cytology RUN DATE: 10/18/ <SEE NOTE> 36 Human Papilloma Virus Rna Negative Negative 37 Laboratory test finding 10/13/2014 TSH (Thyroid Stimulating [...] Egfr Non- 70.6 >60 Egfr 90.8 >60 38 Laboratory test finding 09/29/2014 Magnesium 1.9 mg/dL 1.9-2.7 Troponin I 0.00 ng/mL <0.03 39 TSH (Thyroid Stimulating Horm) 6.43 IU/mL High 0.34-5.60 Laboratory test finding 11/01/2013 CRP High Sensitivity 0.8 mg/L 40 Comp Metabolic Panel 11/01/2013 Sodium 137 mmol/L [...] Egfr Non- 86.2 >60 Egfr 110.9 >60 41 Lipid Profile (Trig/Chol/HDL) 11/01/2013 Triglycerides 98 mg/dL 40-200 Cholesterol 208 mg/dL High Less than 200 HDL Cholesterol 64 mg/dL High 40-60 42 Cholesterol/HDL Ratio 3.3 Average 1-4.44 LDL Cholesterol 124.4 High Less Than 100 43 Laboratory test 11/01/2013 TSH (Thyroid 6.00 miu/mL [...] finding 06/23/2013 Troponin I 0.03 ng/mL 0-0.06 45 TSH (Thyroid Stimulating Horm) 5.87 miu/mL High 0.34-5.60 C Reactive Protein 0.5 mg/dL Less than 0.5 CKMB 06/23/2013 CKMB ng/mL 2.5 ng/mL 0.3-4.0 46 Laboratory test finding 06/23/2013 Magnesium 2.1 mg/dL [...] Egfr Non- 74.2 >60 Egfr 95.4 >60 47 Laboratory test finding 06/23/2013 Inr 0.86 Low 0.87-0.97 Activated Partial Thrombo Time 30.7 seconds 22.18-37.18 Lyme Western Blot 06/01/2013 Lyme Disease IgG Ab WB Negative Negative Lyme Disease IgG Bands Present p41, kDa Lyme Disease IgM Ab WB Positive Negative Lyme Disease IgM Bands Present p41, p23, kDa Lyme Disease Interpretation See Comment 48 Laboratory test finding 06/01/2013 Lyme Disease Serology Positive Negative 49 Laboratory test finding 09/09/2012 CRP High Sensitivity 1.1 mg/L 50 Laboratory test finding 09/09/2012 TSH (Thyroid Stimulating 5.50 MIU/ML 0.34-5.60 51 Horm) Free T4 0.77 NG/ML 0.61-1.24 52 Lipid Profile (Trig/Chol/HDL) 09/09/2012 Triglycerides 62 mg/dL 40-200 Cholesterol 170 mg/dL Less than 200 53 HDL Cholesterol 57 mg/dL 40-60 54 Cholesterol/HDL Ratio 3.0 AVERAGE 1-4.44 LDL Cholesterol [...] 1.9 1-3 Total Bilirubin 1.0 mg/dL 0.1-1.0 55 Alkaline Phosphatase 38 U/L 30-110 Alt 16 U/L 14-54 Ast 24 U/L 12-42 Egfr Non- 86.6 >60 Egfr 111.3 >60 56 Vitamin D, 25 Hydroxy 09/09/2012 25-Hydroxy Vitamin D2 6.3 ng/mL 25-Hydroxy Vitamin D3 25 ng/mL 25-Hydroxy Vitamin D Total 31 ng/mL 57 Ua Routine 09/01/2012 Ua Specific [place] 1.005 Ua PH 7 Ua Color pale yellow Ua Appera clear Ua WBC neg Ua Protein neg Ua Glucose neg Ua Ketones neg Ua Bilirubin neg Ua Urobilinogen neg Ua Nitrite neg Ua Occult Blood Non hem trace Laboratory test finding 09/01/2012 Cytology RUN DATE: <SEE 58 NOTE> Laboratory test finding 06/15/2012 TSH 5.43 MIU/ML 0.34-5.60 Magnesium 2.1 mg/dL 1.7-2.6 Basic Metabolic Panel 06/15/2012 Sodium 137 mmol/L 135-145 Potassium 4.3 mmol/L 3.5-5.0 Chloride 103 mmol/L 101-111 Co2 (Carbon Dioxide) 28.0 mmol/L 22-32 Anion Gap 6.0 mmol/L 2-11 59 Glucose 95 mg/dL 70-100 BUN 16 mg/dL 6-24 Creatinine 0.7 mg/dL 0.50-1.40 One Over Creatinine 1.42 BUN/Creatinine Ratio 22.9 High 8-20 eGFR Non- 86.9 > 60 eGFR 111.7 > 60 60 Laboratory test finding 06/15/2012 Calcium 9.3 mg/dL 8.1-9.9 Laboratory test finding 06/10/2011 TSH 4.68 MIU/ML 0.34-5.60 Thyroxine Free 0.86 ng/dL 0.61-1.24 Laboratory test finding 06/10/2011 Cytology <SEE NOTE> 61 1 [facility] Severe Sepsis and Septic Shock Management Bundle Measure requires all lactic acids initially measuring >2.0 mmol/L be repeated. 2 Because ethnic data is not always readily [...] 15-29 5 Kidney failure <15 (or dialysis) 3 [facility] Severe Sepsis and Septic Shock Management Bundle Measure requires all lactic acids initially measuring >2.0 mmol/L be repeated. 4 >100 to <200 pg/mL: likely compensated congestive heart failure (CHF) 200 to 400 pg/mL: likely moderate CHF >400 pg/mL: likely moderate to severe CHF 5 Because ethnic data is not always readily [...] 15-29 5 Kidney failure <15 (or dialysis) 6 Because ethnic data is not always [...] 5 Kidney failure <15 (or dialysis) 7 [facility] Severe Sepsis and Septic Shock Management Bundle Measure requires all lactic acids initially measuring >2.0 mmol/L be repeated. 8 Because ethnic data is not always [...] 5 Kidney failure <15 (or dialysis) 9 Please note: The following may produce a false positive D Dimer test: - Rheumatoid factor greater than 60 IU/ml - Plasma hemoglobin greater than 0.05 gm/dl - Bilirubin greater than 50 mg/dl - Lipids greater than 1000 mg/dl - FDP greater than 20 ug/ml 10 Because ethnic data is not always readily [...] 15-29 5 Kidney failure <15 (or dialysis) 11 Desirable <150 Borderline high 150-199 High 200-499 Very High >500 12 Desirable <200 Borderline high 200-239 High >239 13 Low <40 Desirable: 40-60 High: >60 14 Desirable: <100 mg/dL Near Optimal: 100-129 mg/dL Borderline High: 130-159 mg/dL High: 160-189 mg/dL Very High: >189 mg/dL 15 SEE RESULT BELOW Name: NICKY MOORE : [address]: Zulay Kraus MD Acct: [id number] Unit: [id number] AGE: 61 Location: [facility] Re05/27/17 SEX: F Status: REG REF SPEC: [id number] CHRIS: 05/27/17-[address] [facility] [address]: Zulay Kraus MD REQ: [id number] RECD: 05/27/17 STATUS: SOUT _ ORDERED: TP IMAGE ANAL, HPV 16/18 GENE COMMENTS: [id number] FINAL DIAGNOSIS Negative for Intraepithelial lesion or [...] Signed (signature on file) DESTIN Hu(ASCP) 05/28 0493 This Pap test was evaluated with the assistance of the [employer] Test Imaging System. Due to cytologic findings at the file clerk microscope, comprehensive manual rescreening by a Contract Implementation Analyst may be required. The Pap Smear is [...] performed at Main Lab DEPARTMENT OF PATHOLOGY, [address] [place] [address] Uziel South M.D. Director [facility] # [id number] 16 [facility] Severe Sepsis and Septic Shock Management Bundle Measure requires all lactic acids initially measuring >2.0 mmol/L be repeated. 17 Because ethnic data is not always readily [...] 15-29 5 Kidney failure <15 (or dialysis) 18 Acute inflammation: >10.00 19 SEE RESULT BELOW Name: NICKY MOORE : [address]: Darian Agosto MD Acct: [id number] Unit: [id number] AGE: 60 Location: [place] [address] Re08/21/16 Dis: 08/25/16 SEX: F Status: DIS IN SPEC: [id number] CHRIS: 08/21/[address]: Dick Rice MD REQ: [id number] RECD: 08/21/16 STATUS: COMP OT DR: Zulay Kraus MD _ SOURCE: BLOOD,VENO SPDESC: ORDERED: Blood Cult Procedure Result Reported Site Aerobic Culture Bottle Final 08/26/16- 1939 ML No Growth Day 5 Anaerobic Culture Bottle Final 08/26/16- 1940 ML No Growth Day 5 * ML - MAIN LAB ([facility]) . END OF REPORT * ML=Testing performed at Main Lab DEPARTMENT OF PATHOLOGY, [address] [place] [address] Uziel South M.D. Director [facility] # [id number] 20 SEE RESULT BELOW Name: NICKY MOORE : [address]: Gorge Gipson [employer]ER Acct: [id number] Unit: [id number] AGE: 60 Location: [facility] Re08/21/16 SEX: F Status: REG REF SPEC: [id number] CHRIS: 08/21/16-[address]: Gorge Gipson [employer] REQ: [id number] RECD: 08/21/16715 STATUS: COMP _ SOURCE: URINE SPDESC: ORDERED: Urine Culture COMMENTS: [id number] Procedure Result Reported Site Urine Culture Final 08/22/16- 1607 ML No Growth (<1,000 CFU/mL) * ML - MAIN LAB ([facility]) . END OF REPORT * ML=Testing performed at Main Lab DEPARTMENT OF PATHOLOGY, [address] [place] [address] Uziel South M.D. Director [facility] # [id number] 21 SEE RESULT BELOW Name: NICKY MOORE : [address]: Gorge Gipson NP Acct: [id number] Unit: [id number] AGE: 60 Location: [facility] Re08/21/16 SEX: F Status: REG REF SPEC: [id number] CHRIS: 08/21/16-[address]: Gorge Gipson [employer]ER REQ: [id number] RECD: 08/21/16 STATUS: SOUT _ ORDERED: THIN PREP NON G COMMENTS: [id number] FINAL DIAGNOSIS Urine, voided: --Negative for malignant cells. URINE VOID GROSS DESCRIPTION 7.5 mls of clear pale yellow voided urine. Signed (signature on file) Gisela Ortega MD 1355 END OF REPORT * ML=Testing performed at Main Lab DEPARTMENT OF PATHOLOGY, [address] [place] [address] Uziel South M.D. Director [facility] # [id number] 22 Because ethnic data is not always [...] 5 Kidney failure <15 (or dialysis) 24 Because ethnic data is not always readily [...] 15-29 5 Kidney failure <15 (or dialysis) 25 Because ethnic data is not always readily [...] 15-29 5 Kidney failure <15 (or dialysis) 26 REFERENCE RANGE: <1:8 INTERPRETIVE CRITERIA: <1:8 Antibody [...] its performance characteristics have been determined by [employer] Performance characteristics refer to the analytical performance of the test. Test Performed by: [employer] [address] [place] [address] 27 RESULT: Results suggest past infection. ADDITIONAL INFORMATION [...] primary infection with EBV. Test Performed by: [place] [address] Special Education Superintendent: Yariel Alonso II, M.D., Ph.D. 28 Reference Range and Interpretation: TnI (ng/mL) Interpretation Less Than 0.03 ng/mL Not supportive of diagnosis of DC 0.03 - 0.50 ng/mL Indeterminate: suggest serial studies if clinically indicated. Greater than 0.5 ng/mL Consistent with diagnosis of DC 29 Because ethnic data is not always [...] 5 Kidney failure <15 (or dialysis) 30 Because ethnic data is not always readily [...] 15-29 5 Kidney failure <15 (or dialysis) 31 Because ethnic data is not always readily [...] 15-29 5 Kidney failure <15 (or dialysis) 32 REFERENCE VALUE 25-HYDROXY D TOTAL (D2+D3) Optimum levels in the healthy population are 20-50, patients with bone disease may benefit from higher levels within this range. Test Performed by: [place] [address] Special Education Superintendent: Nba Park M.D. 33 RUN DATE: 10/21/14 [facility] LAB LIVE PAGE 1 RUN TIME: [address] [place] [address] Specimen Inquiry Name: NICKY MOORE : [address]: Surya De Guzman MD Acct: [id number] Unit: [id number] AGE: 59 Location: [facility] Re10/20/14 SEX: F Status: DEP ER SPEC: [id number] CHRIS: 10/20/14-[address] [facility] [address]: Surya De Guzman MD REQ: [id number] RECD: 10/21/14-1215 STATUS: [facility] DR: Zulay Kraus MD _ SOURCE: [facility]: ORDERED: Rapid Flu A B COMMENTS: Verbal to [id number] ([facility]) by [id number] at 1445 on 10/21/14. Results read back accurately. QUERIES: [employer] Number [id number] Procedure Result Verified Site Rapid Influenza A [...] performed at Main Lab DEPARTMENT OF PATHOLOGY, [address] [place] [address] Uziel South M.D. Director [facility] # [id number] 34 Potassium reference range changed effective 10/01/14 35 Because ethnic data is not always readily [...] 15-29 5 Kidney failure <15 (or dialysis) 36 RUN DATE: 10/18/14 [facility] LAB LIVE PAGE 1 RUN TIME: 1352 [address] [place], [place] [address] Specimen Inquiry Name: NICKY MOORE : 1955 Attend Dr: Zulay Kraus MD Acct: [id number] Unit: [id number] AGE: 59 Location: [facility] Re10/17/14 SEX: F Status: REG REF SPEC: [id number] CHRIS: 10/17/14-[address] [facility] [address]: Zulay Kraus MD REQ: [id number] RECD: 10/17/141528 STATUS: SOUT _ ORDERED: IMAGE ANALYSIS, HPV/Thin [...] significance. likely once. Signed (signature on file) Alainajosselyn Scanlon [place] (ASCP) 10/18/14 1351 This Pap test was evaluated with the assistance of the Quality Technology Services[employer] Test Imaging System. Due to cytologic findings at the file clerk microscope, comprehensive manual rescreening by a Contract Implementation Analyst may be required. The Pap Smear is [...] performed at Main Lab DEPARTMENT OF PATHOLOGY, [address] [place] [address] Uziel South M.D. Director [facility] # [id number] 37 The high-risk HPV types detected by the assay include: 16, 18, 31, 33, 35, 39, 45, 51, 52, 56, 58, 59, 66, and 68. 38 Because ethnic data is not always readily [...] 15-29 5 Kidney failure <15 (or dialysis) 39 Reference Range and Interpretation: TnI (ng/mL) Interpretation Less Than 0.03 ng/mL Not supportive of diagnosis of DC 0.03 - 0.50 ng/mL Indeterminate: suggest serial studies if clinically indicated. Greater than 0.5 ng/mL Consistent with diagnosis of DC 40 Less Than 1.0......Low Risk of Cardiovascular Disease 1.0-3.0............Medium Risk (<2 Fold Increase) Greater Than 3.0...High Risk (Approximately 2-Fold Increase) 41 Because ethnic data is not always readily [...] 15-29 5 Kidney failure <15 (or dialysis) 42 HDL Interpretation: Undesirable: High Risk: Less than 40 mg/dL Desirable: Low Risk: Greater than 60 mg/dL 43 LDL Interpretation: Low Risk Optimal Level: LDL Less than 100 mg/dL Near or Above Optimal: LDL 100-129 mg/dL Borderline High Risk: LDL 130-159 mg/dL High Risk: LDL 160-189 mg/dL Very High Risk: LDL Greater than 189 mg/dL 44 RUN DATE: 09/06/13 [facility] LAB LIVE PAGE 1 RUN TIME: [address] [place], [place] [address] Specimen Inquiry Name: NICKY MOORE : [address]: Fern Jean MD Acct: [id number] Unit: [id number] AGE: 57 Location: [facility] Re09/05/13 SEX: F Status: REG REF SPEC: [id number] CHRIS: 09/05/13-[address] [facility] [address]: Fern Jean MD REQ: [id number] RECD: 09/05/13-1548 STATUS: SOUT _ ORDERED: IMAGE [...] was evaluated with the assistance of the [employer] Technology [employer] Test Imaging System. Due to cytologic findings at the file clerk microscope, comprehensive manual rescreening by a Contract Implementation Analyst may be required. The Pap Smear is [...] performed at Main Lab DEPARTMENT OF PATHOLOGY, [address] [place] [address] Uziel South M.D. Director [facility] Permit #[id number] 45 Reference Range and Interpretation: TnI (ng/mL) Interpretation Less Than 0.06 ng/mL Not supportive of diagnosis of DC 0.06 - 0.50 ng/mL Indeterminate: suggest serial studies if clinically indicated. Greater than 0.5 ng/mL Consistent with diagnosis of DC 46 CKMB interpretation should be made in conjunction with clinical symptoms, patient history and EKG changes. 47 Because ethnic data is not always readily [...] 15-29 5 Kidney failure <15 (or dialysis) 48 Consistent with early infection with Borrelia burgdorferi. [...] screening test (e.g., EIA). Test Performed by: [place] [address] Special Education Superintendent: Louie Burkett III, M.D. 49 Not diagnostic. Supplemental testing ordered by reflex. Test Performed by: [place] [address] Special Education Superintendent: Louie Burkett III, M.D. 50 Less Than 1.0......Low Risk of Cardiovascular Disease 1.0-3.0............Medium Risk (<2 Fold Increase) Greater Than 3.0...High Risk (Approximately 2-Fold Increase) 51 FASTING 52 FASTING 53 Desirable: Less than 200 MG/DL Borderline-High Risk: 200-239 MG/DL High-Risk: 240 MG/DL and over 54 HDL Interpretation: Undesirable: High Risk: Less than 40 MG/DL Desirable: Low Risk: Greater than 60 MG/DL 55 A metabolite of Naproxen, O-desmethylnaproxen, has been shown to interfere with the Jendrassik-Bobbi method for measuring total bilirubin. Samples from patients who have taken Naproxen have shown spurious elevation in total bilirubin levels. 56 Because ethnic data is not always readily [...] 15-29 5 Kidney failure <15 (or dialysis) 57 -- REFERENCE VALUE -- 25-HYDROXY D TOTAL (D2+D3) Optimum levels in the normal population are 25-80 Test Performed by: [address] [address] Special Education Superintendent: Louie Burkett III, M.D. R 58 RUN DATE: 09/02/12 [facility] LAB LIVE PAGE 1 RUN TIME: [address] [place] [address] Specimen Inquiry Name: NICKY MOORE : [address]: Fern Jean MD Acct: [id number] Unit: [id number] AGE: 56 Location: [facility] Re09/01/12 SEX: F Status: REG REF SPEC : [id number] RECD: 09/02/12 STATUS: ELBA HARPER NUM: [id number] CHRIS: 09/01/[address]: Fern Jean MD ENTERED: 09/02/12 SP [...] (signature on file) DESTIN Ledesma (ASCP) 09/02 5249 This Pap test was evaluated with the assistance of the [employer]ide[employer] Test Imaging System. Due to cytologic findings at the file clerk microscope, comprehensive manual rescreening by a Contract Implementation Analyst may be required. The Pap Smear is [...] performed at Main Lab DEPARTMENT OF PATHOLOGY, [address] [place] [address] Uziel South M.D. Director [facility] Permit #[id number] 59 Anion gap measurement may be of limited value in the presence of any alkalosis, especially in a combined acid base disorder. . 60 Because ethnic data is not always readily [...] 15-29 5 Kidney failure <15 (or dialysis) 61 ---- RUN DATE: 06/11/11 [facility] NMI LIVE PAGE 1 RUN TIME: 1456 Specimen Inquiry RUN USER: INTERFACE -- Name: NICKY MOORE Status: REG REF Re06/10/11 Age/Sex: 55/F Unit#: [id number] Location: [facility] : 57 -- Specimen: [id number] SOUT Spec Date: 06/10/[address] [facility] Dr: Fern Jean MD Spec Type: [...] years. Initial evaluation performed by Roshan JURADO CT([facility]) 06/11/11 Final Interpretation electronically signed by: Roshan JURADO CT([facility]) 06/11/11 1456 -- DEPARTMENT OF PATHOLOGY, [address] [place] [address] [facility] Permit #[id number] Uziel South M.D. Director Ally Hooks M.D. Community [facility] Program Coordinator Dir sam -- Procedures Date CPT Code Description Status 03/08/2018 Mammogram Completed 02/12/2018 05134 Echocardiography, Transesophageal, Real Time W/Image 2D Completed W/W/O M-M 02/12/2018 23815 Pulse Wave/Continuous-Interp.RPT Completed 02/12/2018 60611 Color Flow Doppler/Interp & Reprt Completed 02/12/2018 62011 Moderate Sedation Services; Same Phys Intl 15 Mins; PT Completed >=5 Years 02/12/2018 57953 Moderate Sedation Services; Same Phys Each Additional Completed 15 Mins 02/04/2018 86703 ECHO Transthorasic Realtime 2D W Doppler & Color Flow Completed Hosp 11/18/2017 Bone Mineral Density Test Completed 11/17/2017 49185 ECHO Transthorasic Realtime 2D W Doppler & Color Flow Completed Hosp 11/09/2017 25324 EKG Tracing & Interpretation Completed 10/14/2017 01080 Moderate Sedation Services; Same Phys Intl 15 Mins; PT Completed >=5 Years 10/14/2017 68890 Cardioversion Completed 02/17/2017 Mammogram Completed 11/17/2016 44238 EKG Tracing & Interpretation Completed 08/24/2016 27419 EKG, Interpretation Only Completed 08/23/2016 80184 EKG, Interpretation Only Completed 02/15/2016 Mammogram Completed 01/16/2016 39203 Polysomnography Sleep Staging 4+ Parameters Completed 12/03/2015 77344 EKG Tracing & Interpretation Completed 10/10/2015 33212 EKG Tracing & Interpretation Completed 03/19/2015 60433 ECHO Transthorasic Realtime 2D W Doppler & Color Flow Completed Hosp 12/14/2014 09717 EKG Tracing & Interpretation Completed 10/31/2014 Mammogram Completed 10/31/2014 Bone Mineral Density Test Completed 09/29/2014 99283 EKG, Interpretation Only Completed 09/13/2014 24359 EKG Tracing & Interpretation Completed 03/06/2014 03348 ECHO Transthorasic Realtime 2D W Doppler & Color Flow Completed Hosp 11/07/2013 Mammogram Completed 09/05/2013 04865 EKG Tracing & Interpretation Completed 07/22/2013 21611 Stress Test Completed 07/22/2013 42805 Myocardial Perfusion Imaging Tomographic (Spect) Completed Multiple Studies 07/19/2013 42223 Stress Test Completed 07/13/2013 46479 Holter Monitor Review (24 hr)dr hernandez & gisele only Completed 07/11/2013 22120 EKG Tracing & Interpretation Completed 07/05/2013 88313 ECHO Transthorasic Realtime 2D W Doppler & Color Flow Completed Hosp 06/23/2013 39558 EKG Tracing & Interpretation Completed 09/09/2012 Bone Mineral Density Test Completed 09/09/2012 Mammogram Completed 06/15/2012 22409 EKG Tracing & Interpretation Completed 07/01/2011 Colonoscopy Completed 04/15/2011 Mammogram Completed 03/19/2011 48002 EKG Tracing & Interpretation Completed 02/07/2010 Mammogram Completed 02/07/2010 Bone Mineral Density Test Completed 01/30/2010 78113 EKG Tracing & Interpretation Completed 01/05/2009 43977 EKG Tracing & Interpretation Completed 12/27/2007 70654 EKG Tracing & Interpretation Completed 12/27/2007 82898 EKG Tracing & Interpretation Completed 11/24/2006 30707 EKG Tracing & Interpretation Completed Encounters Type Date Location Provider CPT E/M Dx Office Visit 08/05/2018 [facility] Zulay Kraus, 75395 S13.8xxA 11:10a - Bakari Lugo Office Visit 07/29/2018 [facility] [place] [address] M25.511 10:40a - [place] Office Visit 01/19/2018 [facility] Oscar Bone M.D., 40695 Q87.40 2:40p [facility] Office Visit 11/09/2017 [facility] Of Meir Bone M.D., 62693 I48.0 1:20p [facility] Q87.40 I34.1 Office Visit 10/20/2017 10:30a [facility] Zulay Kraus M.D. 59466 I48.0 - Bakari E03.9 Z23 Office Visit 10/14/2017 11:59a [facility] Arlen Henderson M.D. 96731 I48.0 [facility] Office Visit 10/14/2017 8:30a [facility] Yuriy Bunch, 31671 I48.91 Hospitalists M.D. Q87.40 E03.9 Office Visit 10/13/2017 8:29a [facility] Berna Madison, 91952 I48.91 Hospitalists D.O. E03.9 Q87.40 Office Visit 05/27/2017 2:00p [facility] Miguel Á[place] [address] L81.7 Office Visit 05/27/2017 10:30a [facility] - Zulay Kraus, 56061 M81.0 Bakari Lugo E87.6 E83.42 R21 Z13.220 Z00.01 Z12.4 H61.22 Office Visit 11/17/2016 3:00p [facility] Oscar Bone M.D., 50294 Q87.40 [facility] I34.0 I48.0 I34.1 Office Visit 09/09/2016 9:30a [facility] Agosto, 31144 K35.3 [facility] M.D. Office Visit 08/25/2016 1:41p [facility], Ezequiel Wells, 14324 I48.0 Hospitalists M.DJan K35.3 E03.9 Office Visit 08/24/2016 1:41p [facility] Makeda Pennylionel, ENAMEL DRIER 92294 I48.0 Hospitalists K35.3 E03.9 Office Visit 08/24/2016 4:36p [facility] Viktor Pedro, 45789 I48.0 DO [facility] Office Visit 08/23/2016 1:39p [facility], Makeda Pennylionel, 33327 I48.0 Hospitalists ENAMEL DRIER K35.3 E03.9 Office Visit 08/21/2016 2:00p [facility] - Gorge Gipson, DAVID [address] R35.0 Office Visit 02/07/2016 10:45a [facility] [address] G47.33 [facility] Office Visit 02/05/2016 11:10a [facility] - Zulay Kraus, 24063 Z00.00 Jeny Lugo Z12.31 E83.42 E87.6 Z11.59 Office Visit 12/18/2015 10:15a [facility] [address] G47.9 [facility] Office Visit 12/03/2015 3:20p [facility] Meir Bone M.D., 71114 I48.0 [facility] I34.0 Q87.40 Office Visit 10/22/2015 11:10a [facility] Zulay Kraus M.D. 71591 B34.9 - [place] I48.0 R74.0 E87.6 E83.42 R06.83 Office Visit 10/19/2015 10:43a [facility], Yuriy Bunch, 92596 I48.91 Hospitalists Brittney Q87.40 I95.9 Office Visit 10/18/2015 10:42a [facility] Danial Mccain, 54507 I48.91 Assoc, Hospitalists N.PJan Q87.40 I95.9 Office Visit 10/18/2015 3:45p [facility] Arlen Henderson M.D. 79857 I48.0 [facility] Office Visit 10/10/2015 3:40p [facility] Meir Bone M.D., 65883 I34.0 [facility] F[facility] I48.0 I77.810 Office Visit 09/20/2015 11:50a [facility] Zulay Kraus, 35686 B30.1 - Jeny Lugo Office Visit 02/19/2015 9:45a [facility]d Dennis M.D. 98389 726.10 C.M.A. Office Visit 02/05/2015 11:00a [facility] Dennis M.D. 02212 840.4 C.M.A. Office Visit 12/14/2014 3:20p [facility] Meir Bone M.D., 23317 427.31 [facility] 424.0 759.82 Office Visit 11/07/2014 10:50a [facility] Zulay Kraus, 11200 733.01 - Jeny Lugo 786.2 Office Visit 10/17/2014 9:10a [facility] Zulay Kraus M.D. 55981 V70.0 - Jeny V76.10 244.9 733.90 840.4 V04.81 V76.2 V06.1 V72.31 Office Visit 09/30/2014 10:58a [facility] Cali Becker, 09393 427.31 M.DJan 759.82 Office Visit 09/30/2014 12:15p [facility],fatimah Bunch, 70059 427.31 Hospitalists M.DJan 244.9 759.82 Office Visit 09/29/2014 12:14p [facility] Yuriy Bunch, 59275 427.31 Hospitalists M.D. 244.9 759.82 Office Visit 09/29/2014 12:29p [facility] Of Jared Garcia, 64027 427.31 [facility] Brittney, [facility] 424.0 Office Visit 09/13/2014 2:20p [facility] Meir Bone M.D., 70396 427.31 [facility] 424.0 Office Visit 03/21/2014 11:40a [facility] Fern Jean M.D., 50702 088.81 - [place] FACP 300.00 Office Visit 09/05/2013 9:20a [facility] Fern Jean M.D., 99373 780.79 - [place] FACP V70.0 V72.31 V76.10 424.0 427.31 244.9 759.82 V04.81 272.0 v76.2 Office Visit 08/04/2013 9:15a [facility] Meir Bone M.D., 74387 427.31 [facility] 424.0 Office Visit 07/11/2013 10:30a [facility] Meir Bone M.D., 87144 424.0 [facility] Office Visit 06/29/2013 10:00a [facility] Fern Jean M.D., 60184 427.31 - [place] FACP 244.9 Office Visit 06/23/2013 8:40a [facility] Fern Jean M.D., 39968 786.59 - [place] FACP 427.31 Office Visit 06/01/2013 10:20a [facility] Fern Jean M.D., 02789 088.81 - [place] FACP Office Visit 09/01/2012 1:20p [facility] Fern Jean M.D., 36444 V70.0 - [place] FACP V72.31 V76.10 244.9 759.82 733.90 300.00 V04.81 Office Visit 07/05/2012 11:00a [facility] - Oanh Bateman M.D. 59319 300.00 [place] Office Visit 06/15/2012 11:20a [facility] - Oanh Bateman M.D. 60248 759.82 [place] 244.9 785.1 300.00 Office Visit 06/10/2011 2:20p DO Not Use [facility] Fern Miranda, 11751 759.82 M.D., FACP 477.9 V72.31 V70.0 244.9 Office Visit 03/19/2011 2:15p DO Not Use [facility] Fern Miranda, 87700 366.00 M.D., FACP 759.82 V72.84 V76.12 Office Visit 06/25/2010 4:15p DO Not Use [facility] Fern Miranda, 55893 692.6 M.D., FACP Office Visit 02/27/2010 11:00a DO Not Use [facility] Fern Miranda, 19958 733.90 M.D., FACP Office Visit 01/30/2010 9:15a DO Not Use [facility] Fern Miranda, 30753 V72.31 M.D., FACP 759.82 V04.81 Office Visit 07/31/2009 3:00p DO Not Use Francia Lancaster, 04077 692.6 [facility] N.P. Office Visit 02/01/2009 2:30p DO Not Use Fern Jean M.D., 42281 716.99 [facility] FACP 759.82 Office Visit 01/05/2009 1:15p DO Not Use [facility] Fern Miranda, 13656 V72.31 M.D., FACP 719.40 759.82 244.9 V04.81 Office Visit 05/02/2008 10:45a DO Not Use [facility] Fern Miranda, 51633 V07.8 M.D., FACP Office Visit 02/07/2008 11:15a DO Not Use [facility] Fern Miranda, 43550 733.90 M.D., FACP Office Visit 12/27/2007 10:45a DO Not Use [facility] Fern Miranda, 38245 V72.31 M.D., FACP 733.90 244.9 759.82 272.0 Office Visit 11/24/2006 11:30a DO Not Use [facility] Fern Miranda, 57316 V72.31 M.D., FACP V04.81 Office Visit 09/15/2006 2:15p DO Not Use [facility] Fern Jean, 52778 466.0 [facility] Future Appointment(s):08/18/2018 11:50 am - Zulay Kraus M.D. at [facility]11/16/2018 11:10 am - Zulay Kraus M.D. at [facility]08/05/2018 - Zulay Kraus M.D.S13.8xxA Sprain of joints and ligaments of oth prt neck, init encntrNew Medication: Cyclobenzaprine HCL 5 mgFollow up:annual physical in 2 months
[2018-08-18 17:14] LABS: INR 2.23 (0.77-1.02)
[2018-08-18 17:16] LABS: ABS Basophils 0.1 10^3/ul (0-0.2); ABS Eosinophils 0.1 10^3/ul (0-0.6); ABS Lymphocytes 1.6 10^3/ul (1.0-4.8); ABS Monocytes 0.8 10^3/ul (0-0.8); ABS Neutrophils 3.3 10^3/ul (1.5-7.7); ABS Nucleated RBC 0 10^3/ul; Eosinophil % 1.7 % (0-6); Hematocrit 43 % (35-47); Hemoglobin 14.5 g/dl (12.0-16.0); Lymphocyte % 27.7 % (25-47); Mean Corpuscular HGB Conc 34 g/dl (31-36); Mean Corpuscular Hemoglobin 30 pg (27-31); Mean Corpuscular Volume 90 fL (80-97); Mean Platelet Volume 8.9 um3 (7.4-10.4); Nucleated Red Blood Cells % 0.1; Platelet Count 205 10^3/ul (150-450); Red Blood Count 4.83 10^6/ul (4.00-5.40); Red Cell Distribution Width 14 % (10.5-15); White Blood Count 5.9 10^3/ul (3.5-10.8)
[2018-08-18 17:22] LABS: EGFR Non-African American 59.8 (>60)
--- NOTE | 2018-08-18 17:55 | RAD ---
Indication: Palpitations. 2 views of the chest including dual energy PA views demonstrates degenerative changes of the thoracic spine with scoliosis convexity towards the right.. Lung sandoval appear clear. There may be a calcified granuloma in the left midlung zone. The mediastinum is otherwise unremarkable. When compared to previous exam of August 09, 2018 no change is noted. IMPRESSION: Hyperinflated lung sandoval with scoliosis of the thoracic spine. Calcified granuloma in the left midlung Field unchanged from prior exam.
--- NOTE | 2018-08-18 18:03 | ED ---
Palpitations / Dysrhythmia - HPI Summary HPI Summary: This patient is a 62 year old F with hx Marfan's presenting to ED with a chief complaint of afib since 2100 on 08/16/18. She was in the ED 1 week ago for the same sx. She reports she usually has it 1 time a year and is now becoming more frequent, with afib only one week after being cardioverted. 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 The pt describes the afib as constantly present since 08/16/18 and she knows it is present by the irregular and fast beats that she is aware of. The patient has no pain (0/10 in severity) . Pt cannot think of an inciting event for the afib. Symptoms alleviated by nothing. She did not try taking additional medication. Patient reports SHIPMAN (at onset) that was spontaneously relieved on 08/16/18. Patient denies CP, SOB, fever and dizziness. She states that occasionally she has to take "an extra breath" since the fast HR, but she does not state she is SOB. She does not have any peripheral edema. The patient is on Xarelto (has been on it for several years and has not missed a dosage) and on Multaq (since 09/2017 and also has not missed any doses) and metoprolol. The patient was admitted and cardioverted twice before (on 10/13/17 and 08/09/18). Pt states that she has an upcoming appointment at [facility] for further evaluation of her Marfan's syndrome. Current vitals include irregular at 120 BPM, 93 O2 sat, and BP 110/80. Home Medications Medication Instructions Recorded Confirmed Type Potassium Chlor TAB* [Klor Con ER 10 meq PO BID 10/13/17 08/18/18 History TAB 10 MEQ*] Dronedarone TAB* [Multaq TAB*] 400 mg PO BID #60 tab 10/14/17 08/18/18 Rx Calcium Carbonate/Vitamin D3 1 tab PO BID 02/11/18 08/18/18 History [Calcium 500-Vit D3 200 Caplet] Cholecalciferol TAB* [Vitamin D 1,000 unit PO DAILY 02/12/18 08/18/18 History TAB*] Vitamin E CAP* 200 unit PO DAILY 02/12/18 08/18/18 History Ascorbic Acid TAB* [Vitamin C 500 mg PO DAILY 08/09/18 08/18/18 History TAB*] Baclofen TAB* [Lioresal TAB*] 5 mg PO TID PRN 08/09/18 08/18/18 History Cyclobenzaprine (NF) 5 mg PO Q8HR 08/09/18 08/18/18 History [Cyclobenzaprine 5 MG (NF)] Flaxseed Oil 1,000 mg PO DAILY 08/09/18 08/18/18 History Levothyroxine TAB* [Synthroid TAB*] 100 mcg PO .SIX DAYS A WEEK 08/09/18 History Magnesium Oxide [Magnesium] 250 mg PO BID 08/09/18 08/18/18 History Metoprolol Succinate XL TAB* 12.5 mg PO BEDTIME 08/09/18 08/18/18 History [Toprol XL TAB*] Metoprolol Succinate XL TAB* 25 mg PO DAILY@1200 08/09/18 08/18/18 History [Toprol XL TAB*] Rivaroxaban TAB(*) [Xarelto 20 mg] 20 mg PO DAILY 08/09/18 08/18/18 History Selenium (NF) 200 mcg PO DAILY 08/09/18 08/18/18 History - History of Current Complaint Chief Complaint: EDDysrhythmPalp Time Seen by Provider: 08/18/18 17:09 Hx Obtained From: Patient, Family/Occupational Therapist Rehab Manager - partner Beto is with pt., Medical Records Onset/Duration: Sudden Onset - since 2100 on 08/16/18, Lasting Days, Still Present Timing: Constant Severity Initially: Mild Severity Currently: Mild Character: Fast, Irregular Aggravating: Nothing Alleviating: Nothing Related History: Similar Episode/Dx as - rapid afib - Allergy/Home Medications Allergies/Adverse Reactions: Allergies Allergy/AdvReac Type Severity Reaction Status Date / Time Sulfa (Sulfonamide Allergy Intermediate Rash Verified 08/09/18 20:49 Antibiotics) nickel Allergy Rash Verified 08/09/18 20:49 PMH/Surg Hx/FS Hx/Imm Hx Previously Healthy: No Endocrine/Hematology History: Reports: Hx Thyroid Disease, Other Endocrine/ Hematological Disorders - HX LYME DISEASE 2012 Denies: Hx Diabetes Cardiovascular History: Reports: Hx Atrial Fibrillation, Hx Valvular Heart Disease - MITRAL VALVE PROLAPSE, MARFAN'S SYNDROME Denies: Hx Hypertension, Hx Pacemaker/ICD, Hx Peripheral Vascular Disease History: Denies: Hx Dialysis, Hx Renal Disease Musculoskeletal History: Reports: Other Musculoskeletal History - MARFAN'S SYNDROME Denies: Hx Arthritis, Hx Rheumatoid Arthritis, Hx Osteoporosis Sensory History: Reports: Hx Cataracts - hx of cataract surgery Denies: Hx Contacts or Glasses, Hx Hearing Aid Opthamlomology History: Reports: Hx Cataracts - hx of cataract surgery Denies: Hx Contacts or Glasses Neurological History: Reports: Hx Transient Ischemic Attacks (TIA) Denies: Hx Headaches, Hx Seizures Psychiatric History: Denies: Hx Anxiety, Hx Panic Disorder - Cancer History Hx Chemotherapy: No Hx Radiation Therapy: No - Surgical History Surgery Procedure, Year, and Place: BL CATARACT SURGERY, 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 - Immunization History Date of Tetanus Vaccine: "I think so" when asked if up to date Date of Influenza Vaccine: 2017 Infectious Disease History: No Infectious Disease History: Reports: Hx Shingles Denies: Traveled Outside the [place] in Last 30 Days - Family History Known Family History: Positive: Cardiac Disease, Other - Marfan syndrome: father - Social History Occupation: Employed Full-time Lives: With Family Alcohol Use: Rare Alcohol Amount: GLASS OF WINE W/DINNER Hx Substance Use: No Substance Use Type: Reports: None Hx Tobacco Use: No Smoking Status (MU): Never Smoked Tobacco Review of Systems Constitutional: Negative Positive: Palpitations, Other - afib. Negative: Chest Pain Negative: Shortness Of Breath Gastrointestinal: Negative Skin: Negative Neurological: Other - denies dizziness Positive: Headache - at onset Psychological: Normal All Other Systems Reviewed And Are Negative: Yes Physical Exam - Summary Physical Exam Summary: Appearance: Well-appearing, no pain distress, well-nourished. Tall stature. Skin: Warm, color reflects adequate perfusion, dry Head: Normal Head/Face inspection, atraumatic Eyes: Conjunctiva clear ENT: High arched palette. Neck: Supple, no nodes, no JVD Respiratory: Lungs clear, normal breath sounds, no respiratory distress Cardio: irregularly irregular heart rate with rates from 87-130 observed by MD in the room, II/ murmur at base, pulses normal, brisk capillary refill Abdomen: Soft, nontender Musculoskeletal: Strength Intact/ROM intact, no calf tenderness, no edema. Thoracic scoliosis. Psychological: Normal Neuro: Alert, muscle tone normal, no focal deficit Triage Information Reviewed: Yes Vital Signs On Initial Exam: Initial Vitals Temp Pulse Resp BP Pulse Ox 97.8 F 70 16 114/59 97 08/18/18 14:11 08/18/18 14:11 08/18/18 14:11 08/18/18 14:11 08/18/18 14:11 Vital Signs Reviewed: Yes Diagnostics - Vital Signs Vital Signs Temp Pulse Resp BP Pulse Ox 08/18/18 16:14 98.2 F 72 16 108/67 94 08/18/18 14:11 97.8 F 70 16 114/59 97 - Laboratory Lab Results: Lab Results 08/18/18 08/18/18 08/18/18 Range/Units 16:57 16:57 16:57 WBC 5.9 (3.5-10.8) 10^3/ul RBC 4.83 (4.00-5.40) 10^6/ul Hgb 14.5 (12.0-16.0) g/dl Hct 43 (35-47) % MCV 90 (80-97) fL MCH 30 (27-31) pg MCHC 34 (31-36) g/dl RDW 14 (10.5-15) % Plt Count 205 (150-450) 10^3/ul MPV 8.9 (7.4-10.4) um3 Neut % (Auto) 55.4 (38-83) % Lymph % (Auto) 27.7 (25-47) % [place] % (Auto) 13.9 H (0-7) % Eos % (Auto) 1.7 (0-6) % Baso % (Auto) 1.3 (0-2) % Absolute Neuts (auto) 3.3 (1.5-7.7) 10^3/ul Absolute Lymphs (auto) 1.6 (1.0-4.8) 10^3/ul Absolute Monos (auto) 0.8 (0-0.8) 10^3/ul Absolute Eos (auto) 0.1 (0-0.6) 10^3/ul Absolute Basos (auto) 0.1 (0-0.2) 10^3/ul Absolute Nucleated RBC 0 10^3/ul Nucleated RBC % 0.1 INR (Anticoag Therapy) (0.77-1.02) APTT (26.0-36.3) seconds D-Dimer, Quantitative (Less Than 230) ng/mL Sodium 134 L (135-145) mmol/L Potassium 4.5 (3.5-5.0) mmol/L Chloride 102 (101-111) mmol/L Carbon Dioxide 28 (22-32) mmol/L Anion Gap 4 (2-11) mmol/L BUN 15 (6-24) mg/dL Creatinine 0.95 (0.51-0.95) mg/dL Est GFR ( Amer) 72.4 (>60) Est GFR (Non-Af Amer) 59.8 (>60) BUN/Creatinine Ratio 15.8 (8-20) Glucose 92 (70-100) mg/dL Lactic Acid 0.8 (0.5-2.0) mmol/L Calcium 9.7 (8.6-10.3) mg/dL Magnesium 2.2 (1.9-2.7) mg/dL Total Bilirubin 1.00 (0.2-1.0) mg/dL AST 18 (13-39) U/L ALT 18 (7-52) U/L Alkaline Phosphatase 47 (34-104) U/L Total Creatine Kinase 44 (10-223) U/L CK-MB (CK-2) 1.8 (0.6-6.3) ng/mL Troponin I 0.00 (<0.04) ng/mL B-Natriuretic Peptide ( - 100) pg/mL Total Protein 7.5 (6.4-8.9) g/dL Albumin 4.3 (3.2-5.2) g/dL Globulin 3.2 (2-4) g/dL Albumin/Globulin Ratio 1.3 (1-3) TSH Pending 08/18/18 08/18/18 Range/Units 16:57 16:57 WBC (3.5-10.8) 10^3/ul RBC (4.00-5.40) 10^6/ul Hgb (12.0-16.0) g/dl Hct (35-47) % MCV (80-97) fL MCH (27-31) pg MCHC (31-36) g/dl RDW (10.5-15) % Plt Count (150-450) 10^3/ul MPV (7.4-10.4) um3 Neut % (Auto) (38-83) % Lymph % (Auto) (25-47) % [place] % (Auto) (0-7) % Eos % (Auto) (0-6) % Baso % (Auto) (0-2) % Absolute Neuts (auto) (1.5-7.7) 10^3/ul Absolute Lymphs (auto) (1.0-4.8) 10^3/ul Absolute Monos (auto) (0-0.8) 10^3/ul Absolute Eos (auto) (0-0.6) 10^3/ul Absolute Basos (auto) (0-0.2) 10^3/ul Absolute Nucleated RBC 10^3/ul Nucleated RBC % INR (Anticoag Therapy) 2.23 H (0.77-1.02) APTT 45.5 H (26.0-36.3) seconds D-Dimer, Quantitative < 200 (Less Than 230) ng/mL Sodium (135-145) mmol/L Potassium (3.5-5.0) mmol/L Chloride (101-111) mmol/L Carbon Dioxide (22-32) mmol/L Anion Gap (2-11) mmol/L BUN (6-24) mg/dL Creatinine (0.51-0.95) mg/dL Est GFR ( Amer) (>60) Est GFR (Non-Af Amer) (>60) BUN/Creatinine Ratio (8-20) Glucose (70-100) mg/dL Lactic Acid (0.5-2.0) mmol/L Calcium (8.6-10.3) mg/dL Magnesium (1.9-2.7) mg/dL Total Bilirubin (0.2-1.0) mg/dL AST (13-39) U/L ALT (7-52) U/L Alkaline Phosphatase (34-104) U/L Total Creatine Kinase (10-223) U/L CK-MB (CK-2) (0.6-6.3) ng/mL Troponin I (<0.04) ng/mL B-Natriuretic Peptide 571 H ( - 100) pg/mL Total Protein (6.4-8.9) g/dL Albumin (3.2-5.2) g/dL Globulin (2-4) g/dL Albumin/Globulin Ratio (1-3) TSH Result Diagrams: 08/18/18 16:57 08/18/18 16:57 Lab Statement: Any lab studies that have been ordered have been reviewed, and results considered in the medical decision making process. - Radiology CXR Radiology Interpretation Completed By: Radiologist - Hyperinflated lung sandoval with scoliosis of the thoracic spine. Calcified granuloma in the left midlung Field unchanged from prior exam. ED physician has reviewed this radiology report. - EKG 1415 Cardiac Rate: Other Rate - afib at 98 BPM EKG Rhythm: Atrial Fibrillation EKG Interpretation: Nml IV CT, nml QTc, nml axis EKG Comparison: Other - Compared with 08/10/18, now is in afib. Re-Evaluation - Re-Evaluation First Eval Re-Evaluation Time: 19:00 Change: Unchanged Comment: advised her with Dr. Mcgowan that Dr. Hendesron recommends cardioversion. HR max 120 while in the room. Still denies CP, SOB Course/Dx - Course Assessment/Plan: This patient is a 62 year old F with hx Marfan's presenting to ED with a chief complaint of afib since 2100 on 08/16/18. CXR reveals hyperinflated lung sandoval with scoliosis of the thoracic spine. Calcified granuloma in the left midlung field unchanged from prior exam. EKG done at 1415 reveals afib at 98 BPM, nml IV CT, nml QTc, and nml axis. Compared with 08/10/18 , now is in afib. This patient will be admitted with dx of afib with rapid ventricular response and Marfan's syndrome with plan for cardioversion. Patient understands and agrees. - Diagnoses Differential Diagnosis/HQI/PQRI: Positive: Congestive Heart Failure, Coronary Artery Disease Provider Diagnoses: Atrial fibrillation with rapid ventricular response, Marfan syndrome, Paroxysmal atrial fibrillation - Physician Notifications Discussed Care Of Patient With: Arlen Henderson Time Discussed With Above Provider: 18:45 Instructed by Provider To: Other - Consulted Dr. Henderson who recommends cardioversion. Hospitalist, Dr. Mcgowan to evaluate. Discharge - Sign-Out/Discharge Documenting (check all that apply): Patient Departure - admit - Discharge Plan Condition: Stable Disposition: HOME Patient Education Materials: A-fib (Atrial Fibrillation) (ED) Referrals: Zulay Kraus MD [Primary Care Provider] - Arlne Henderson MD [Medical Doctor] - Additional Instructions: Stop Multaq, increase Metoprolol to 25my tonight and in the morning. Your scheduled to have elective cardioversion at 9:[address] Henderson. Do not eat or drink anything after midnight except her medications. Return if worse, new symptoms or other concerns. - Billing Disposition and Condition Condition: STABLE Disposition: Home - Attestation Statements Document Initiated by Scribe: Yes Documenting Scribe: Neil Davis Provider For Whom Scribe is Documenting (Include Credential): Allyson Henderson MD Scribe Attestation: Neil Timmons, scribed for Allyson Henderson MD on 08/19/18 at 0738. Scribe Documentation Reviewed: Yes Provider Attestation: The documentation as recorded by the Neil fajardo accurately reflects the service I personally performed and the decisions made by me, Allyson Henderson MD
[2018-08-18 20:53] VITALS: BP 122/83
--- NOTE | 2018-08-18 21:09 | ED ---
Progress - Progress Note Progress Note: Pt is a 62 y.o female who was seen by Dr. Henderson. Upon discussion, pt will be discharged. Adjustments were made to her medication and she will receive a Cardioversion at 0930 tomorrow (08/19/18). Course/Dx - Diagnoses Provider Diagnoses: Atrial fibrillation with rapid ventricular response, Marfan syndrome, Paroxysmal atrial fibrillation - Provider Notifications Time Discussed With Above Provider: 18:45 Instructed by Provider To: Other - Consulted Dr. Henderson who says to admit the patient and have her be cardioverted in the morning. Discharge - Sign-Out/Discharge Documenting (check all that apply): Patient Departure - Discharge Home, Sign- Out Patient, Receiving Sign-Out Signing out patient TO: Sheldon Augustin Receiving patient FROM: Allyson Henderson - Discharge Plan Condition: Stable Disposition: HOME Patient Education Materials: A-fib (Atrial Fibrillation) (ED) Referrals: Zulay Kraus MD [Primary Care Provider] - Arlen Henderson MD [Medical Doctor] - Additional Instructions: Stop Multaq, increase Metoprolol to 25my tonight and in the morning. Your scheduled to have elective cardioversion at 9:[address] Henderson. Do not eat or drink anything after midnight except her medications. Return if worse, new symptoms or other concerns. - Attestation Statements Document Initiated by Scribe: Yes Documenting Scribe: Jean Cormier Provider For Whom Scribe is Documenting (Include Credential): Dr. Augustin Scribe Attestation: I, Jean Cormier, scribed for Dr. Augustin on 08/18/18 at 2110.
--- NOTE | 2018-08-18 22:41 | CONS ---
CC: Dr. Kraus * EMERGENCY ROOM CONSULTATION REPORT: DATE OF CONSULT: 08/18/18 REASON FOR CONSULT: Atrial fibrillation. HISTORY OF PRESENT ILLNESS: Carrie Soto is a 62-year-old patient followed by Dr. Bone with a history of Marfan syndrome, dilated thoracic aorta, mitral insufficiency, and paroxysmal AFib. 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 Currently, it is early evening. The patient denies any obvious triggers. She had had no alcohol, no over-the- counter medications. She has not had any recent viral illnesses or change in activity or other medical issues. She awoke from sleep with it, she says she just feels more tired, but she has not had any orthopnea or PND and last night slept on her usual 2 pillows. She has not missed any doses of her Multaq and she has not missed any doses of her Xarelto. The patient was admitted for 24 hours, 08/09/18 through 08/10/18, with palpitations and right shoulder pain with atrial fibrillation. She underwent cardioversion and was sent home on her prior medications of Multaq, metoprolol, and rivaroxaban (Xarelto). PAST MEDICAL HISTORY: 1. Marfan syndrome. 2. Dilated thoracic aorta. 3. Mitral valve prolapse. 4. Mitral insufficiency. 5. Hypothyroid disease. 6. Paroxysmal AFib. 7. Osteopenia. MEDICATIONS: The patient's outpatient medications include: 1. Vitamin E. 2. Selenium. 3. Xarelto 20 mg a day. 4. Potassium chloride 20 mEq a day. 5. Toprol-XL 37.5 mg a day. 6. Magnesium oxide 250 mg b.i.d. 7. Levothyroxine 100 mcg 6 days a week. 8. Flaxseed oil 1 g a day. 9. Multaq 400 mg b.i.d. 10. Cyclobenzaprine 5 mg q.8 hours. 11. Vitamin D 1000 units a day. 12. Calcium carbonate and vitamin D 1 tablet b.i.d. 13. Baclofen (Lioresal) 5 mg t.i.d. 14. Ascorbic acid 500 mg a day. ALLERGIES: She is allergic to SULFA and NICKEL. FAMILY HISTORY: Significant in that her mother had a stroke and at age 78. Her father at the age of 45 with history of Marfan's and myocardial infarction. 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 Occasional alcohol use; she says she has cut down from prior years. No history of recreational drug use and no smoking history. REVIEW OF SYSTEMS: As above. Negative for fevers, chills, sweats. With her palpitations, she has had some right shoulder pain and decreased functional ability but again no orthopnea or PND. No history of sleep apnea or daytime fatigue and prior to the onset of the recurrent AFib, she had stable functional ability. She updates me that she is going to be following up soon with [facility] about her Marfan's syndrome and aortic dilatation. All other 14-point review of systems was negative. PHYSICAL EXAM: The patient is 5 feet 10 inches, weighs 163 pounds with a BMI of 23. Vitals: Currently, blood pressure 115/85, pulse is 95 to 110, respiratory rate is 16 to 25, oxygen saturation 95% on room air, temperature 98.2. General Appearance: Tall, fit, well-nourished appearing somewhat older woman in no acute distress, lying at 30 degrees. Her is present with her. Psychologically, pleasant and cooperative. Neurologically, awake, alert, and oriented to person, place, and time. Grossly normal sensory and motor function of the upper and lower extremities on the examining gurney. Skin: Warm and dry. No cyanosis or rashes. HEENT: Pupils are equal and round. Mucous membranes are moist. Neck: Without appreciable increase in JVP. Lungs: Clear with good effort. No wheezes, rales, or rhonchi. Coronary: S1, S2. Irregularly irregular and tachycardic. No diastolic murmurs heard. Soft systolic murmur heard at the apex. Abdomen: Soft, nontender. Lower extremities showed minimal edema at the sock lines. DIAGNOSTIC STUDIES/LAB DATA: A 12-lead ECG today shows atrial fibrillation with a ventricular rate of 98 beats a minute, QRS axis was 60, normal intraventricular conduction times, some nonspecific ST changes in the inferolateral leads. When this EKG is compared with an EKG of 08/10/18, it replaces sinus bradycardia 51 beats a minute, QRS axis, and ST change is not significantly changed. Chest x-ray showed no congestive heart failure. It did show some hyperinflation. Transesophageal echo from 02/12/18 showed an ejection fraction of 55%, normal right ventricular systolic function, mitral valve was Alatorre's type with mitral valve prolapse and broad regurgitant jet that was difficult to quantify but estimated at mild to moderate, mild tricuspid insufficiency. The aortic root was dilated to 4.5 and mild aortic insufficiency. Proximal ascending aorta 4.1 cm. LABORATORY DATA: White count 5.9, hematocrit 43, platelets 205. INR 2.23, PTT 45. D-dimer less than 200. Sodium 134, potassium 4.5, chloride 102, bicarb 28, BUN 15, creatinine 0.95. AST 18, ALT 18. CPK 44, MB 1.8. Troponin 0.00. Brain natriuretic peptide 571. TSH 4.47. IMPRESSION AND PLAN: In summary, Carrie Soto is a 62-year-old woman with a history of paroxysmal atrial fibrillation in the setting of Marfan's and thoracic aneurysm presenting with atrial fibrillation just a week after her last episode. The ER is not staffed to cardiovert her. I have arranged for cardioversion in the morning as an outpatient. As she has broken through Multaq twice within a week without an obvious inciting etiology, I am going to have her stop the Multaq tonight and tomorrow morning and we can tentatively try her on a different agent, possibly sotalol. [id number] #: [id number] MTDD
--- NOTE | 2018-08-18 23:06 | CONS ---
CC: Zulay Kraus MD; Dr. Arlen Henderson * CONSULTATION REPORT: DATE OF CONSULT: 08/18/18 - EMERGENCY DEPT TIME OF EVALUATION: 1900 PRIMARY CARE PHYSICIAN: Zulay Kraus MD HAIR BOILER OPERATOR: Dr. Arlen Henderson. CHIEF COMPLAINT: Fluttering and atrial fibrillation. HISTORY OF PRESENT ILLNESS: This is a 62-year-old female with past medical history of atrial fibrillation, on anticoagulation and Multaq, who presents to the emergency room after having feeling of fluttering in her chest since the evening of 08/16/18. 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 She states sometimes she needs to take an extra breath and no overt shortness of breath. No chest pain. No fever, no upper respiratory symptoms, no cough. She was nausea on the morning of 08/16/18 with headache that is since resolved, increase in burping at that time as well. No leg swelling. No changes in the weight. She has been trying to lose weight. No changes in her medications. She states she is planning to go to [facility] to evaluate her aortic root in August. She was admitted from 08/09/18 to 08/10/18 at that time where she was cardioverted and she remained on Multaq at that time. Otherwise remaining review of systems negative. In the emergency room, the patient had labs, imaging. She was given a liter of fluid and referred to the hospitalist service for further evaluation. PAST MEDICAL HISTORY: 1. Admission from 08/09/18 to 08/10/18 for atrial fibrillation, status post cardioversion. 2. History of atrial fibrillation, on anticoagulation. 3. Thoracic aortic ectasia. 4. Osteopenia. 5. Mitral valve insufficiency. 6. Hypothyroidism. 7. Marfan syndrome. PAST SURGICAL HISTORY: 1. Cataract extraction. 2. Polyp removal. MEDICATIONS: 1. Toprol-XL 25 mg at noon and 12.5 at bedtime. 2. Flaxseed oil 1000 mg daily. 3. Vitamin D 1000 units daily. 4. Calcium carbonate 1 tab p.o. b.i.d. 5. Selenium 200 mcg daily. 6. Magnesium 250 mg p.o. b.i.d. 7. Vitamin C 500 units daily. 8. Vitamin E 200 units daily. 9. Synthroid 100 mcg 6 days a week. 10. Xarelto 20 mg daily. 11. Multaq 400 mg p.o. b.i.d. 12. Potassium 10 mEq p.o. b.i.d. 13. Flexeril 5 mg every 8 hours as needed. ALLERGIES: SULFA. FAMILY HISTORY: Mother with history of stroke. Father with NC and Marfan's. SOCIAL HISTORY: She lives with her healthcare proxy, Beto, who is her partner. 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 No history of smoking. Rare alcohol use. One cup of tea in the weekend. Code status, full code. REVIEW OF SYSTEMS: A 14-point review of systems as mentioned in the HPI, otherwise negative. PHYSICAL EXAM: Vitals: Her heart rate ranges from 90 to 110, respiratory rate 18, oxygen saturation 96% on room air, blood pressure 122/83, temperature is 97.6. General: No acute distress, resting with her partner at the bedside. HEENT: Normocephalic. Pupils equal and reactive, anicteric. Oropharynx: Mucous membranes moist. Neck: Supple. No lymphadenopathy. Cardiac: Irregularly regular rate and rhythm. Soft systolic murmur heard throughout. Respiratory: Clear to auscultation. No wheezes, rhonchi, or rales. Abdomen: Soft, nontender, nondistended. Extremities: No clubbing, cyanosis, or edema. +2 DPs. Neurologic: Alert and oriented x3. No gross focal neurological deficits. DIAGNOSTIC STUDIES/LAB DATA: White count 5.9, hemoglobin 14.5, hematocrit 43, platelets 205. INR was 2.23. PTT was 45. D-dimer is less than 200. Sodium 134, potassium 4.5, chloride 102, bicarb 28, BUN 15, creatinine 0.95. Troponin is 0. BNP is 571. Chest x-ray shows hyperinflated lung sandoval, scoliosis of the thoracic spine, calcified granuloma in the left lung field unchanged from prior exams. EKG showed atrial fibrillation with some ST flattening and some depression in the lateral leads with rate of 98. ASSESSMENT AND PLAN: This is a 62-year-old female with past medical history of atrial fibrillation, on anticoagulation, who presents to the emergency room with fluttering, found to be in atrial fibrillation with rate around 90s to 110s. The patient is mainly asymptomatic. Dr. Henderson was contacted regarding outpatient cardioversion versus inpatient cardioversion. She came into see the patient. With her unremarkable workup and being asymptomatic, she is scheduling an outpatient cardioversion, changing her Multaq to sotalol. We will defer to Dr. Henderson for further recommendation and followup. The ER was notified of the patient to be discharged to home with Cardiology followup. PATIENT TIME: Greater than 30 minutes spent doing consultation, more than half time spent in direct patient contact. [id number]/[facility] #: [id number] [place]
== END | disposition home or self-care (01) ==
LOC: ED 14:04
DX: I48.0 Paroxysmal atrial fibrillation (principal); Q87.40 Marfan syndrome, unspecified; Z79.01 Long term (current) use of anticoagulants; I34.0 Nonrheumatic mitral (valve) insufficiency; M85.80 Other specified disorders of bone density and structure, unspecified site
CPT/HCPCS: 36415; 71046; 80053; 82550; 82553; 83605; 83735; 83880; 84443; 84484; 85025; 85379; 85610; 85730; 93005; 99282

== ENCOUNTER 2019-03-12 20:13 | Inpatient (IN) | payer BC ==
--- OUTSIDE RECORDS SUMMARY | 2019-03-12 20:29 | XMS REPORT | Continuity of Care Document ---
:1955 External Reference #:[id number] Author Name Justa Desai Care Team Providers Name Role Phone Zulay Kraus MD Primary Care Physician Unavailable Payers Date Identification Numbers Payment Provider Subscriber Policy Number: [id number] [facility] Carrie Moore PayID: [id number] [address] [place] [address] Advance Directives Description No Information Available Problems Date Description Provider Status Onset: 03/17/2011 Marfan's syndrome Fern Jean M.D., MIA Active Onset: 03/17/2011 Hypothyroidism Fern Jean M.D., FACP Active Onset: 09/13/2014 Mitral valve disorder Meir Bone M.D., [facility], [facility] Active Note: mitral valave insufficiency Onset: 11/07/2014 Osteoporosis Zulay Kraus M.D. Active Onset: 11/07/2014 Scoliosis deformity of spine Zulay Kraus M.D. Active Onset: 02/19/2015 Tendinosis Zulay Kraus M.D. Active Note: rotatot cuff with AC joint OA Onset: 10/10/2015 Thoracic aortic ectasia [facility] Active Onset: 10/23/2015 Arachnoid cyst Zulay Kraus M.D. Active Note: L anterior fossa Onset: 12/18/2015 Disturbance in sleep behavior Yudi Louie MD Active Onset: 11/17/2016 Paroxysmal atrial fibrillation Meir Bone M.D., FACC, Active FSCAI Onset: 03/17/2011 Osteochondropathy Fern Jean M.D., FACP Inactive Inactive: 11/07/2014 Onset: 03/17/2011 Pure hypercholesterolemia Fern Jean M.D., FACP Inactive Inactive: 11/07/2014 Family History Date Family Member(s) Observation Comments General Heart Disease : (age 43 Years) Father due to DE Father due to Marfan's () Mother due to Stroke () : (age 42 Years) First Brother due to Accident First Sister 67 First Sister Chronic Obstructive Pulmonary Disease (COPD) Social History Type Date Description Comments Sex Unknown Marital Status Single Lives With Male 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 other day Alendronate 11/16/20 Active Tablets 70mg 12tab take 1 M81.0 Zulay Sodium 18 s tablet Kraus, by mouth M.D. weekly Automatic Blood 11/11/20 Active Kit 1unit 1 adult Maria C S. Pressure Monitor 18 s large Foster, cuff and N.P. unit for upper arm utd twice a day . please log results . call providor when systolic reading is below 100 or above 1 Magnesium Oxide 11/09/20 Active Capsules 400mg 60cap 1 tab by I48.0 Maria C S. -MG Supplement 18 s mouth Foster, twice N.P. daily Irbesartan 10/01/20 Active Tablets 75mg 14tab take 1 Q87.410 Maria C S. 18 s tab bid Foster, N.P. Sotalol HCL (AF) 09/15/20 Active Tablets 120mg 90tab 1/2 tab Arlen 18 s by mouth Jennings, twice a M.D. day Levothyroxine 10/20/20 Active Tablets 100mcg 90tab Take 1 E03.9 Zulay Sodium 17 s Tablet Kraus, By Mouth M.D. Daily Calcium 600 + D 02/05/20 Active Tablets 600-200mg 1 tab Zulay 16 -Unit bid Nayana, M.DJan Potassium 10/23/20 Active Capsules 10Meq 360ca 2 tabs Arlen Chloride ER 15 ER ps by mouth Jennings, bid M.D. Xarelto 10/04/20 Active Tablets 20mg 90tab 1 by Arlen 14 s mouth Santiago, every M.D. day Selenium Active Tablets 1 po qd Unknown 00 Flaxseed Oil Active Capsules 1 po Unknown 00 weekly Vit C, E, Active once a Unknown 00 day Losartan 09/14/20 Hx Tablets 25mg 90tab 1/2 by Maria C Romo Potassium 18 - s mouth Foster, 09/14/20 every N.P. 18 day Sotalol HCL (AF) 08/19/20 Hx Tablets 80mg 90tab 1/2 tab Arlen 18 - s by mouth Santiago, 09/15/20 twice a M.D. 18 day Cyclobenzaprine 08/05/20 Hx Tablets 5mg 30tab take 1 S13.8xxA Zulay HCL 18 - s tablet Nayana, 08/26/20 every 8 M.D. 18 hrs Baclofen 07/29/20 Hx Tablets 10mg 20tab take 1/2 M25.511 Henry 18 - s tab Jesse, DAVID 08/05/20 every 8 18 hours as needed for muscle spasm Tramadol HCL 07/29/20 Hx Tablets 50mg 10tab 1 tablet M25.511 Henry 18 - s every 12 Jesse, FREELANCE TRANSLATOR 08/03/20 hours as 18 needed for pain. Zostavax 10/20/20 Hx Suspension [id number]/ 1unit sc x1 Zulay 17 - Rec 0.65ML s Nayana, 01/18/20 M.D. 18 Calcium 600 02/05/20 Hx Tablets 600mg 1 by Zulay 16 - mouth Kraus, 02/05/20 every M.D. 16 day Magnesium 10/23/20 Hx Tablets 250mg 1 by Zulay 15 - mouth Kraus, 11/09/20 twice M.D. 18 daily Oxycodone HCL 10/22/20 Hx Tablets 5mg 30tab 1/2 to B34.9 Zulay 15 - s tab for Zeus Kraus M.D. every 8 hours as needed Potassium 10/18/20 Hx Tablets ER 20Meq 2 tab Unknown Chloride ER 15 - daily 10/23/20 15 Malarone 06/13/20 Hx Tablets 250-100mg 30tab one by Francia 15 - s mouth Anisha, N.P. 07/13/20 daily 15 starting 1 - 2 days before arriving and continue for 7 days after leaving destin ion Potassium 04/03/20 Hx Tablets ER 10Meq 180ta 1 tab by Zulay Chloride ER 15 - bs mouth Kraus, 10/22/20 twice a M.D. 15 day Metoprolol 12/14/19 Hx Tablets ER 25mg 135ta 1.5 Meir Succinate ER 15 - 24HR bs tablets Stefek, 08/26/20 by mouth M.D., 18 daily FAC, [facility] Alendronate 11/07/20 Hx Tablets 70mg 12tab take 1 M81.0 Zulay Sodium 14 - s tablet Kraus, 10/30/20 by mouth M.D. 17 weekly ( Stop taking recently been off for 1 week) Levothyroxine 10/17/20 Hx Tablets 88mcg 30tab take 1 E03.9 Henry Sodium 14 - s tablet DAVID Molina 10/20/20 by mouth 17 once daily Potassium 10/04/20 Hx Tablets 10Meq 60tab 1 tab by Other 14 - s mouth Ordering 04/03/20 twice a Provider 15 day Levothyroxine 10/03/20 Hx Tablets 88mcg 1 by Other Sodium 14 - mouth Ordering 10/17/20 every Provider 14 day Doxycycline 03/21/[address] 100mg 2caps 1 by 088.81 Fern Hyclate 14 - Part mouth Miranda, 09/12/20 twice a M.D., FACP 14 day Doxycycline 06/01/[address] 100mg 20cap 1 by 088.81 Fern Hyclate 13 - Part s mouth Miranda, 06/23/20 twice a M.D., FACP 13 day Citalopram 06/15/20 Hx Tablets 10mg 90tab take 1 300.00 Fern Hydrobromide 12 - s tablet Miranda, 09/12/20 daily M.D., FACP 14 Clonazepam 06/15/20 Hx Tablets 0.5mg 60tab take 1 300.00 Fern 12 - s tablet Miranda, 09/12/20 twice M.D., FACP 14 daily as needed Levothyroxine 10/06/20 Hx Tablets 50mcg 90tab take 1 Francia Sodium 11 - s tablet Varn, N.P. 10/03/20 by mouth 14 once daily Nasonex 06/10/20 Hx Suspension 50mcg/Act 1unit 2 sprays 477.9 Fern 11 - s to each Miranda, 09/01/20 nostril M.D., FACP 12 once daily Baby Aspirin 03/19/20 Hx Chewtabs 81mg 100un 1 tablet Fern 11 - its by Miranda, 12/25/19 mouth M.D., FACP 16 when travelin g Malarone 10/21/20 Hx Tablets 250-100mg 27tab take 1 Fern 10 - s daily 2d Miranda, 03/19/20 prior to M.D., FACP 11 leaving and 7d upon return home Ambien 07/16/20 Hx Tablets 5mg 20tab 1 tablet Amita 10 - s by mouth Cotton, Unknown at M.D. bedtime as needed for sleep insomnia Synthroid 07/16/20 Hx Tablets 50mcg 90tab 1 in the Fern 10 - s am Miranda, 10/06/20 M.D., FACP 11 Evista 07/16/20 Hx Tablets 60mg 90tab take 1 Amita 10 - s tablet Cotton, 11/07/20 by mouth M.D. 14 once daily Propranolol HCL 07/16/20 Hx Tablets 40mg 180ta take 1 Fern 10 - bs tablet Miranda, 10/04/20 by mouth M.D., FACP 14 twice a day Prednisone 06/25/20 Hx Tablets 10mg 10tab 1 po qd Fern 10 - s Miranda, 03/19/20 M.D., FACP 11 Malarone Hx Tablets 250-100mg 22tab po qd 1 Unknown 00 - s day 03/21/20 prior to 14 travel through 7 days after Calcium & Hx Tablets 1 po qd Unknown Magnesium 00 - 02/05/20 16 Levothyroxine Hx Tablets 75mcg take 1 Unknown Sodium 00 - tablet 10/17/20 by mouth 14 once daily Metoprolol Hx Tablets 25mg take 1 Unknown Tartrate 00 - tablet 12/14/19 by mouth 15 twice a day Digitek Hx Tablets 250mcg Take 1 Unknown 00 - Tablet 12/25/19 By Mouth 16 Daily AT 5PM Amoxicillin/Clav Hx Tablets 875-125mg take 1 Unknown ulanate 00 - tablet Potassium 11/16/20 by mouth 16 twice a day Multaq Hx Tablets 400mg 180ta take 1 Meir 00 - bs tablet Stefek, 08/19/20 by mouth M.D., 18 twice a FACC, day FSCAI Tramadol HCL Hx Tablets 50mg take 1 Unknown 00 - tablet 08/26/20 by mouth 18 every 12 hours if needed for pain Medications Administered in Office Medication Date Status Form Strength Qnty SIG Indications Ordering Provider Shingrix Administered Injection Unknown pharmacy 019 administered Inj, Administered Injection Edson DJan Regadenoson, 013 Brand, 0.1 MG M.D. Technetium TC Administered Injection Edson DJan 99M 013 Brand, Tetrofosmin, M.D. Per Unit Dose Up To 40 Millicuries Immunizations CPT Code Status Date Vaccine Lot # [id number] Given 10/09/2018 Influenza Virus Vaccine, Quadrivalent, Split, Preservative Free 32752 Given 07/19/2018 Zoster (Shingles) Vaccine (HZV), Recombinant, Subunit, Adjuvanted 21570 Given 07/19/2018 Zoster (Shingles) Vaccine (HZV), Recombinant, Subunit, Adjuvanted 11161 Given 10/20/2017 Influenza Virus Vaccine, Quadrivalent, Split, [id number] Preservative Free 25743 Given 11/26/2016 Influ Virus Vaccine, Quadrivalent, Split Virus, [place] [address] Given 2015 Influenza Virus Vaccine, Quadrivalent, Split, Preservative Free 53384 Given 10/17/2014 Tdap - Tetanus/Diptheria/Acellular Pertussis [id number] 49713 Given 10/17/2014 Flu Vaccine Split Virus Preservative Free For [id number] Indiv 3Yr Older 95287 Given 09/05/2013 Flu Vaccine Split Virus Preservative Free For [id number] Indiv 3Yr Older [id number] Given 09/01/2012 Fluzone Vaccine [id number] 30751 Given 01/30/2010 Influenza Virus Vaccine, Pandemic Formulation 49301 Given 01/30/2010 Administration Swine Flu Shot 05461 Given 01/05/2009 Influenza Virus 3Yrs & Over 65491 Given 11/24/2006 Influenza Virus 3Yrs & Over 83363 Given 11/24/2006 Influenza Virus 3Yrs & Over 58608 Given 2003 Td Toxoids Adsorbed For Use 7Yrs Or Older For Intramuscular Use Vital Signs Date Vital Result Comment 03/08/2019 10:29am Height 70.5 inches 5'10.50" Weight 181.00 lb Heart Rate 61 /min BP Systolic Sitting 90 mmHg BP Diastolic Sitting 55 mmHg Body Temperature 99.0 F O2 % BldC Oximetry 96 % BMI (Body Mass Index) 25.6 kg/m2 03/03/2019 2:42pm Height 70.5 inches 5'10.50" Weight 181.00 lb with out shoes Heart Rate 60 /min BP Systolic Sitting 90 mmHg Lue reg cuff BP Diastolic Sitting 60 mmHg Lue reg cuff BP Systolic Standing 94 mmHg Lue reg cuff BP Diastolic Standing 60 mmHg Lue reg cuff Respiratory Rate 16 /min BMI (Body Mass Index) 25.6 kg/m2 Ejection Fraction 50-55% date 02/15/19 echo 02/24/2019 9:38am Height 70.5 inches 5'10.50" Heart Rate 68 /min BP Systolic 100 mmHg BP Diastolic 62 mmHg Respiratory Rate 18 /min Body Temperature 96.7 F Pain Level 2 02/22/2019 4:19pm Height 70.5 inches 5'10.50" Weight 175.00 lb Heart Rate 62 /min BP Systolic Sitting 86 mmHg BP Diastolic Sitting 57 mmHg O2 % BldC Oximetry 94 % BMI (Body Mass Index) 24.8 kg/m2 02/17/2019 1:27pm Height 70.5 inches 5'10.50" Weight 174.00 lb Heart Rate 65 /min BP Systolic Sitting 110 mmHg BP Diastolic Sitting 69 mmHg O2 % BldC Oximetry 97 % BMI (Body Mass Index) 24.6 kg/m2 01/27/2019 9:39am Height 70.5 inches 5'10.50" Weight 163.00 lb Heart Rate 60 /min BP Systolic 108 mmHg BP Diastolic 68 mmHg Body Temperature 97.6 F Pain Level 3 BMI (Body Mass Index) 23.1 kg/m2 01/25/2019 9:34am Height 70.5 inches 5'10.50" Weight 163.00 lb no shoes BP Systolic Sitting 104 mmHg lue reg cuff BP Diastolic Sitting 68 mmHg lue reg cuff BP Systolic Standing 98 mmHg lue reg cuff BP Diastolic Standing 68 mmHg lue reg cuff Respiratory Rate 16 /min BMI (Body Mass Index) 23.1 kg/m2 Ejection Fraction 45-50% echo. 02/04/18 01/04/2019 9:04am Height 70.5 inches 5'10.50" Weight 164.00 lb BP Systolic 110 mmHg BP Diastolic 70 mmHg Pain Level 4 BMI (Body Mass Index) 23.2 kg/m2 12/02/2018 10:53am Height 70.5 inches 5'10.50" Weight 158.00 lb Heart Rate 70 /min BP Systolic 120 mmHg BP Diastolic 60 mmHg Respiratory Rate 18 /min Pain Level 6 BMI (Body Mass Index) 22.3 kg/m2 11/16/2018 11:10am Height 70.5 inches 5'10.50" Weight 158.00 lb Heart Rate 65 /min BP Systolic Sitting 100 mmHg BP Diastolic Sitting 60 mmHg O2 % BldC Oximetry 95 % BMI (Body Mass Index) 22.3 kg/m2 11/09/2018 10:19am Height 70.5 inches 5'10.50" Weight 161.00 lb no shoes Heart Rate 60 /min BP Systolic Sitting 108 mmHg lue reg cuff BP Diastolic Sitting 64 mmHg lue reg cuff BP Systolic Standing 106 mmHg lue reg cuff BP Diastolic Standing 64 mmHg lue reg cuff BMI (Body Mass Index) 22.8 kg/m2 Ejection Fraction 45-50% echo.02/04/18 10/01/2018 1:20pm Height 70.5 inches 5'10.50" Weight 156.00 lb no shoes Heart Rate 72 /min BP Systolic Sitting 108 mmHg lue reg cuff BP Diastolic Sitting 70 mmHg lue reg cuff BP Systolic Standing 104 mmHg lue reg cuff BP Diastolic Standing 70 mmHg lue reg cuff BMI (Body Mass Index) 22.1 kg/m2 Ejection Fraction 45-50% echo.02/04/2018 09/13/2018 4:36pm Height 70.5 inches 5'10.50" Weight 157.50 lb Heart Rate 74 /min BP Systolic Sitting 110 mmHg left arm reg cuff BP Diastolic Sitting 70 mmHg left arm reg cuff BP Systolic Standing 92 mmHg BP Diastolic Standing 68 mmHg BP Systolic Lying Down 90 mmHg BP Diastolic Lying Down 70 mmHg Respiratory Rate 16 /min Pain Level 0 O2 % BldC Oximetry 98 % BMI (Body Mass Index) 22.3 kg/m2 08/27/2018 1:14pm Height 70.5 inches 5'10.50" Weight 157.00 lb Heart Rate 66 /min BP Systolic Sitting 100 mmHg lue reg cuff BP Diastolic Sitting 64 mmHg lue reg cuff BP Systolic Standing 102 mmHg BP Diastolic Standing 70 mmHg Respiratory Rate 16 /min BMI (Body Mass Index) 22.2 kg/m2 Ejection Fraction 45-50% 02/04/2018 echo 08/05/2018 11:20am Height 70.5 inches 5'10.50" Weight 163.00 lb Heart Rate 71 /min BP Systolic Sitting 82 mmHg BP Diastolic Sitting 60 mmHg O2 % BldC Oximetry 97 % BMI (Body Mass Index) 23.1 kg/m2 07/29/2018 11:00am Height 70.5 inches 5'10.50" Weight 163.00 lb Heart Rate 63 /min BP Systolic Sitting 109 mmHg BP Diastolic Sitting 80 mmHg O2 % BldC Oximetry 98 % BMI (Body Mass Index) 23.1 kg/m2 01/19/2018 2:40pm Height 70.5 inches 5'10.50" Weight 167.00 lb w/ shoes Heart Rate 58 /min BP Systolic Sitting 104 mmHg BP Diastolic Sitting 64 mmHg Respiratory Rate 18 /min BMI (Body Mass Index) 23.6 kg/m2 Ejection Fraction 50-55% echo 11/17/17 11/09/2017 1:15pm Height 70.5 inches 5'10.50" Weight 162.25 lb [...] Ejection Fraction 55-60% date 11/14/2016 ECHO 10/20/2017 10:31am Weight 163.00 lb Heart Rate 56 /min BP Systolic Sitting 100 mmHg BP Diastolic Sitting 70 mmHg Body Temperature 97.8 F O2 % BldC Oximetry 98 % 05/27/2017 10:50am Height 70.5 inches 5'10.50" Weight 164.25 lb Heart Rate 56 /min BP Systolic 106 mmHg BP Diastolic 60 mmHg Body Temperature 97.2 F O2 % BldC Oximetry 98 % BMI (Body Mass Index) 23.2 kg/m2 11/17/2016 2:52pm Height 70.5 inches 5'10.50" Weight 159.00 lb Heart Rate 54 /min 60 BP Systolic Sitting 100 mmHg left arm, reg cuff BP Diastolic Sitting 70 mmHg left arm, reg cuff BP Systolic Standing 92 mmHg left arm, reg cuff BP Diastolic Standing 70 mmHg left arm, reg cuff Respiratory Rate 16 /min BMI (Body Mass Index) 22.5 kg/m2 Ejection Fraction 55-60% 11/14/16 09/09/2016 9:31am Height 70.5 inches 5'10.50" Weight 157.00 lb Heart Rate 68 /min BP Systolic 115 mmHg BP Diastolic 70 mmHg Respiratory Rate 16 /min Body Temperature 97.7 F BMI (Body Mass Index) 22.2 kg/m2 08/21/2016 2:04pm Weight 157.00 lb Heart Rate 73 /min BP Systolic Sitting 124 mmHg BP Diastolic Sitting 64 mmHg Body Temperature 99.7 F O2 % BldC Oximetry 96 % 02/07/2016 10:51am Height 71 inches 5'11" Weight 156.00 lb Heart Rate 54 /min BP Systolic 108 mmHg BP Diastolic 70 mmHg O2 % BldC Oximetry 98 % BMI (Body Mass Index) 21.8 kg/m2 02/05/2016 11:09am Height 71 inches 5'11" Weight 156.00 lb Heart Rate 53 /min BP Systolic Sitting 100 mmHg BP Diastolic Sitting 78 mmHg Body Temperature 97.6 F O2 % BldC Oximetry 98 % BMI (Body Mass Index) 21.8 kg/m2 12/18/2015 10:13am Height 71 inches 5'11" Weight 154.00 lb Heart Rate 64 /min BP Systolic 98 mmHg BP Diastolic 60 mmHg Respiratory Rate 14 /min O2 % BldC Oximetry 93 % BMI (Body Mass Index) 21.5 kg/m2 Neck Circumference in inches 14 12/03/2015 3:16pm Height 71 inches 5'11" Weight 152.00 lb Heart Rate 56 /min 60 BP Systolic Sitting 100 mmHg right arm, reg cuff BP Diastolic Sitting 70 mmHg right arm, reg cuff BP Systolic Standing 98 mmHg right arm, reg cuff BP Diastolic Standing 70 mmHg right arm, reg cuff Respiratory Rate 16 /min BMI (Body Mass Index) 21.2 kg/m2 Ejection Fraction 60-65% 03/19/15 10/22/2015 11:06am Height 71 inches 5'11" Weight 152.00 lb Heart Rate 68 /min BP Systolic Sitting 124 mmHg BP Diastolic Sitting 72 mmHg Respiratory Rate 15 /min Body Temperature 98.8 F O2 % BldC Oximetry 98 % BMI (Body Mass Index) 21.2 kg/m2 10/10/2015 3:28pm Height 71 inches 5'11" Weight 151.00 lb Heart Rate 56 /min 58 BP Systolic Sitting 110 mmHg right arm, reg cuff BP Diastolic Sitting 80 mmHg right arm, reg cuff BP Systolic Standing 108 mmHg right arm, reg cuff BP Diastolic Standing 80 mmHg right arm, reg cuff Respiratory Rate 16 /min BMI (Body Mass Index) 21.1 kg/m2 Ejection Fraction 60-65% 03/19/15 09/20/2015 11:55am Height 71 inches 5'11" Weight 151.75 lb Heart Rate 62 /min BP Systolic Sitting 102 mmHg BP Diastolic Sitting 68 mmHg Respiratory Rate 16 /min Body Temperature 95.8 F Pain Level 0 general aches and pains O2 % BldC Oximetry 97 % BMI (Body Mass Index) 21.2 kg/m2 02/19/2015 9:54am Height 71 inches 5'11" Weight 145.00 lb Pain Level 5 BMI (Body Mass Index) 20.2 kg/m2 02/05/2015 10:51am Height 71 inches 5'11" Weight 145.00 lb Heart Rate 54 /min BP Systolic 104 mmHg BP Diastolic 68 mmHg BMI (Body Mass Index) 20.2 kg/m2 12/14/2014 3:21pm Height 70 inches 5'10" Weight 150.00 lb Heart Rate 74 /min 80 BP Systolic Sitting 106 mmHg right arm, reg cuff BP Diastolic Sitting 64 mmHg right arm, reg cuff BP Systolic Standing 102 mmHg right arm, reg cuff BP Diastolic Standing 70 mmHg right arm, reg cuff Respiratory Rate 20 /min BMI (Body Mass Index) 21.5 kg/m2 11/07/2014 10:59am Weight 151.00 lb Heart Rate 62 /min BP Systolic Sitting 118 mmHg BP Diastolic Sitting 66 mmHg 10/17/2014 9:04am Height 70 inches 5'10" Weight 150.75 lb Heart Rate 58 /min BP Systolic Sitting 88 mmHg BP Diastolic Sitting 56 mmHg Body Temperature 97.6 F O2 % BldC Oximetry 97 % BMI (Body Mass Index) 21.6 kg/m2 09/13/2014 2:32pm Height 70.5 inches 5'10.50" Weight 153.00 lb Heart Rate 54 /min 64 BP Systolic Sitting 100 mmHg left arm, reg cuff BP Diastolic Sitting 68 mmHg left arm, reg cuff BP Systolic Standing 86 mmHg left arm, reg cuff BP Diastolic Standing 64 mmHg left arm, reg cuff Respiratory Rate 20 /min BMI (Body Mass Index) 21.6 kg/m2 03/21/2014 12:17pm Weight 157.00 lb Heart Rate 51 /min BP Systolic Sitting 122 mmHg BP Diastolic Sitting 80 mmHg 09/05/2013 9:21am Height 70.5 inches 5'10.50" Weight 155.00 lb Heart Rate 54 /min BP Systolic Sitting 110 mmHg BP Diastolic Sitting 60 mmHg BMI (Body Mass Index) 21.9 kg/m2 06/29/2013 10:06am Weight 154.00 lb Heart Rate 54 /min BP Systolic Sitting 124 mmHg BP Diastolic Sitting 80 mmHg 06/23/2013 8:35am Weight 154.00 lb Heart Rate 56 /min BP Systolic Sitting 96 mmHg BP Diastolic Sitting 58 mmHg Body Temperature 97.9 F O2 % BldC Oximetry 98 % 06/01/2013 10:39am Weight 150.50 lb Heart Rate 52 /min BP Systolic Sitting 98 mmHg BP Diastolic Sitting 60 mmHg Body Temperature 98.4 F 09/01/2012 1:20pm Height 70.5 inches 5'10.50" Weight 148.25 lb Heart Rate 52 /min BP Systolic Sitting 104 mmHg BP Diastolic Sitting 60 mmHg BMI (Body Mass Index) 21.0 kg/m2 07/05/2012 10:45am Height 69.75 inches 5'9.75" Weight 147.00 lb Heart Rate 56 /min BP Systolic Sitting 90 mmHg BP Diastolic Sitting 68 mmHg BMI (Body Mass Index) 21.2 kg/m2 06/15/2012 11:48am Height 69.75 inches 5'9.75" Weight 147.00 lb Heart Rate 60 /min BP Systolic Sitting 96 mmHg BP Diastolic Sitting 60 mmHg BMI (Body Mass Index) 21.2 kg/m2 06/10/2011 2:15pm Height 69.75 inches 5'9.75" Weight 145.00 lb Heart Rate 66 /min BP Systolic Sitting 118 mmHg BP Diastolic Sitting 70 mmHg BMI (Body Mass Index) 21.0 kg/m2 03/19/2011 2:20pm Height 69.75 inches 5'9.75" Weight 145.00 lb Heart Rate 58 /min BP Systolic Sitting 100 mmHg BP Diastolic Sitting 70 mmHg BMI (Body Mass Index) 21.0 kg/m2 Results Test Date Facility Test Result H/L Range Note Laboratory test 03/01/2019 [facility] TSH 5.64 mcIU/mL High 0.34-5.[address] ([place] [address] Stim Horm) [phone] T3 Free 2.80 pg/mL N 2.5-3.9 Free T4 (Free Thyroxine) 0.82 ng/dL N 0.61-1.12 Basic Metabolic Panel 03/01/2019 [facility] Sodium 135 mmol/L N 135-[address] [place] [address] [phone] Potassium 4.6 mmol/L N 3.5-5.0 Chloride 105 mmol/L N 101-111 Co2 Carbon Dioxide 27 mmol/L N 22-32 Anion Gap 3 mmol/L N 2-11 Glucose 100 mg/dL N 70-100 Blood Urea Nitrogen 10 mg/dL N 6-24 Creatinine 0.62 mg/dL N 0.51-0.95 BUN/Creatinine Ratio 16.1 N 8-20 Calcium 8.1 mg/dL Low 8.6-10.3 Egfr Non- 97.5 >60 Egfr 118.0 >60 1 Laboratory test 02/17/2019 [facility] TSH (Thyroid 8.89 High 0.34-5.[address] Stim Horm) mcIU/[place] [address] [phone] T3 Free 3.00 pg/mL N 2.5-3.9 Free T4 (Free Thyroxine) 1.12 ng/dL N 0.61-1.12 Urinalysis Profile 02/17/2019 [facility] Urine Color Straw [address] [place] [address] [phone] Urine Appearance Clear Urine Specific [place] 1.009 Low 1.010-1.030 Urine pH 7.0 N 5-9 Urine Urobilinogen Negative Negative Urine Ketones Negative Negative Urine Protein Negative Negative Urine Leukocytes Negative Negative Urine Blood Negative Negative * * Abnormal Negative 2 Urine Nitrite Negative Negative Urine Bilirubin Negative Negative Urine Glucose Negative Negative Comp Metabolic Panel 02/17/2019 [facility] Sodium 136 mmol/L N 135-145 [address] [place] [address] [phone] Potassium 4.7 mmol/L N 3.5-5.0 Chloride 103 mmol/L N 101-111 Co2 Carbon Dioxide 30 mmol/L N 22-32 Anion Gap 3 mmol/L N 2-11 Glucose 102 mg/dL High 70-100 Blood Urea Nitrogen 16 mg/dL N 6-24 Creatinine 0.61 mg/dL N 0.51-0.95 BUN/Creatinine Ratio 26.2 High 8-20 Calcium 8.6 mg/dL N 8.6-10.3 Total Protein 5.8 g/dL Low 6.4-8.9 Albumin 3.4 g/dL N 3.2-5.2 Globulin 2.4 g/dL N 2-4 Albumin/Globulin Ratio 1.4 N 1-3 Total Bilirubin 0.60 mg/dL N 0.2-1.0 Alkaline Phosphatase 39 U/L N 34-104 Alt 11 U/L N 7-52 Ast 16 U/L N 13-39 Egfr Non- 99.4 >60 Egfr 120.3 >60 3 Basic Metabolic Panel 12/30/2018 [facility] Sodium 137 mmol/L N 135-145 [address] [place] [address] [phone] Potassium 4.9 mmol/L N 3.5-5.0 Chloride 103 mmol/L N 101-111 Co2 Carbon Dioxide 31 mmol/L N 22-32 Anion Gap 3 mmol/L N 2-11 Glucose 85 mg/dL N 70-100 Blood Urea Nitrogen 16 mg/dL N 6-24 Creatinine 0.63 mg/dL N 0.51-0.95 BUN/Creatinine Ratio 25.4 High 8-20 Calcium 9.2 mg/dL N 8.6-10.3 Egfr Non- 95.8 >60 Egfr 115.9 >60 4 Laboratory test 12/30/2018 [facility] Magnesium 2.0 mg/dL N 1.9-2.7 finding [address] [place] [address] [phone] Laboratory test 12/14/2018 [facility] Hemosure Negative finding Non-Medicare Basic Metabolic 10/29/2018 [facility] Sodium 139 mmol/L N 135- 145 Panel [address] [place] [address] [phone] Potassium 3.9 mmol/L N 3.5-5.0 Chloride 104 mmol/L N 101-111 Co2 Carbon Dioxide 27 mmol/L N 22-32 Anion Gap 8 mmol/L N 2-11 Calcium 9.2 mg/dL N 8.6-10.3 Glucose 72 mg/dL N 70-100 Blood Urea Nitrogen 16 mg/dL N 6-24 Creatinine 0.72 mg/dL N 0.51-0.95 BUN/Creatinine Ratio 22.2 High 8-20 Egfr Non- 82.1 >60 Egfr 99.3 >60 5 Laboratory test 10/29/2018 [facility] Magnesium 1.8 mg/dL Low 1.9-2.7 6 finding [address] [place] [address] [phone] Basic Metabolic 10/13/2018 [facility] Sodium 138 mmol/L N 135- 145 Panel [address] [place] [address] [phone] Potassium 3.8 mmol/L N 3.5-5.0 Chloride 108 mmol/L N 101-111 Co2 Carbon Dioxide 26 mmol/L N 22-32 Anion Gap 4 mmol/L N 2-11 Glucose 93 mg/dL N 70-100 Blood Urea Nitrogen 14 mg/dL N 6-24 Creatinine 0.57 mg/dL N 0.51-0.95 BUN/Creatinine Ratio 24.6 High 8-20 Calcium 8.8 mg/dL N 8.6-10.3 Egfr Non- 107.5 >60 Egfr 130.0 >60 7 Laboratory test 10/13/2018 [facility] Magnesium 1.8 mg/dL Low 1.9-2.7 finding [address] [place], [place] [id number] [phone] Laboratory test 10/01/2018 [facility] Magnesium <pending> finding [address] [place] [address] [phone] CBC Auto Diff 08/18/2018 [facility] White Blood 5.9 N 3.5- 10.[address] Count 10^3/[place] [address] [phone] Red Blood Count 4.83 10^6/uL N 4.00-5.40 Hemoglobin 14.5 g/dL N 12.0-16.0 Hematocrit 43 % N 35-47 Mean Corpuscular Volume 90 fL N 80-97 Mean Corpuscular Hemoglobin 30 pg N 27-31 Mean Corpuscular HGB Conc 34 g/dL N 31-36 Red Cell Distribution Width 14 % N 10.5-15 Platelet Count 205 10^3/uL N 150-450 Mean Platelet Volume 8.9 um3 N 7.4-10.4 Abs Neutrophils 3.3 10^3/uL N 1.5-7.7 Abs Lymphocytes 1.6 10^3/uL N 1.0-4.8 Abs Monocytes 0.8 10^3/uL N 0-0.8 Abs Eosinophils 0.1 10^3/uL N 0-0.6 Abs Basophils 0.1 10^3/uL N 0-0.2 Abs Nucleated RBC 0 10^3/uL Granulocyte % 55.4 % N 38-83 Lymphocyte % 27.7 % N 25-47 Monocyte % 13.9 % High 0-7 Eosinophil % 1.7 % N 0-6 Basophil % 1.3 % N 0-2 Nucleated Red Blood Cells % 0.1 Inr/Protime 08/18/2018 [facility] Inr 2.23 High 0.77-1.[address] [place], [place] [id number] [phone] Laboratory test 08/18/2018 [facility] Partial 45.5 High 26.0- 36.[address] [place] [address] Time PTT [phone] D Dimer Quantitative < 200 ng/mL N Less Than 230 8 B-Type Natriuretic Peptide BNP 571 pg/mL High 9 Lactic Acid 0.8 mmol/L N 0.5-2.0 10 Comp Metabolic Panel 08/18/2018 [facility] Sodium 134 mmol/L Low 135-145 [address] [place] [address] [phone] Potassium 4.5 mmol/L N 3.5-5.0 Chloride 102 mmol/L N 101-111 Co2 Carbon Dioxide 28 mmol/L N 22-32 Anion Gap 4 mmol/L N 2-11 Glucose 92 mg/dL N 70-100 Blood Urea Nitrogen 15 mg/dL N 6-24 Creatinine 0.95 mg/dL N 0.51-0.95 BUN/Creatinine Ratio 15.8 N 8-20 Calcium 9.7 mg/dL N 8.6-10.3 Total Protein 7.5 g/dL N 6.4-8.9 Albumin 4.3 g/dL N 3.2-5.2 Globulin 3.2 g/dL N 2-4 Albumin/Globulin Ratio 1.3 N 1-3 Total Bilirubin 1.00 mg/dL N 0.2-1.0 Alkaline Phosphatase 47 U/L N 34-104 Alt 18 U/L N 7-52 Ast 18 U/L N 13-39 Egfr Non- 59.8 >60 Egfr 72.4 >60 11 Laboratory test 08/18/2018 [facility] Magnesium 2.2 mg/dL N 1.9-2.7 finding [address] [place] [address] [phone] Creatine Kinase(CK) 44 U/L N 10-223 Troponin-I (TnI) 0.00 ng/mL <0.04 CKMB 08/18/2018 [facility] CKMB ng/mL 1.8 ng/mL N 0.6-6.3 [address] [place] [address] [phone] Laboratory test 08/18/2018 [facility] TSH (Thyroid 4.47 N 0.34 -5.60 finding [address] [facility] Stim Horm) mcIU/[place] [address] [phone] Laboratory test 08/09/2018 [facility] Magnesium 2.0 mg/dL N 1.9-2.7 finding [address] [place] [address] [phone] Comp Metabolic 08/09/2018 [facility] Sodium 137 mmol/L N 135- [address] [place] [address] [phone] Potassium 4.3 mmol/L N 3.5-5.0 Chloride 105 mmol/L N 101-111 Co2 Carbon Dioxide 25 mmol/L N 22-32 Anion Gap 7 mmol/L N 2-11 Glucose 90 mg/dL N 70-100 Blood Urea Nitrogen 17 mg/dL N 6-24 Creatinine 1.22 mg/dL High 0.51-0.95 BUN/Creatinine Ratio 13.9 N 8-20 Calcium 9.0 mg/dL N 8.6-10.3 Total Protein 6.8 g/dL N 6.4-8.9 Albumin 3.9 g/dL N 3.2-5.2 Globulin 2.9 g/dL N 2-4 Albumin/Globulin Ratio 1.3 N 1-3 Total Bilirubin 0.60 mg/dL N 0.2-1.0 Alkaline Phosphatase 41 U/L N 34-104 Alt 15 U/L N 7-52 Ast 18 U/L N 13-39 Egfr Non- 44.8 >60 Egfr 54.2 >60 12 Laboratory test 08/09/2018 [facility] Lactic Acid 0.6 mmol/L N 0.5-2.0 [address] [place] [address] [phone] Troponin-I (TnI) 0.01 ng/mL <0.04 CBC Auto Diff 08/09/2018 [facility] White Blood 5.0 10^3/uL N 3.5-10.[address] [place] [address] [phone] Red Blood Count 4.44 10^6/uL N 4.00-5.40 Hemoglobin 13.3 g/dL N 12.0-16.0 Hematocrit 40 % N 35-47 Mean Corpuscular Volume 89 fL N 80-97 Mean Corpuscular Hemoglobin 30 pg N 27-31 Mean Corpuscular HGB Conc 34 g/dL N 31-36 Red Cell Distribution Width 14 % N 10.5-15 Platelet Count 182 10^3/uL N 150-450 Mean Platelet Volume 9.0 um3 N 7.4-10.4 Abs Neutrophils 3.2 10^3/uL N 1.5-7.7 Abs Lymphocytes 1.0 10^3/uL N 1.0-4.8 Abs Monocytes 0.6 10^3/uL N 0-0.8 Abs Eosinophils 0.1 10^3/uL N 0-0.6 Abs Basophils 0 10^3/uL N 0-0.2 Abs Nucleated RBC 0 10^3/uL Granulocyte % 64.4 % N 38-83 Lymphocyte % 21.0 % Low 25-47 Monocyte % 12.2 % High 0-7 Eosinophil % 1.6 % N 0-6 Basophil % 0.8 % N 0-2 Nucleated Red Blood Cells % 0.1 Laboratory test 08/09/2018 [facility] Troponin-I 0.00 ng/mL < 0.[address] (TnI) [place] [address] [phone] Laboratory test 02/04/2018 [facility] TSH (Thyroid 2.13 N 0.34 -5.[address] Stim Horm) mcIU/[place] [address] [phone] Free T4 (Free Thyroxine) 0.93 ng/dL N 0.61-1.12 T3 Free 3.10 pg/mL N 2.5-3.9 Laboratory test 01/08/2018 [facility] Troponin-I 0.00 ng/mL < 0.[address] (TnI) [place] [address] [phone] CBC Auto Diff 01/08/2018 [facility] White Blood 7.3 N 3.5- 10.[address] Count 10^3/[place] [address] [phone] Red Blood Count 4.72 10^6/uL N 4.0-5.4 Hemoglobin 14.1 g/dL N 12.0-16.0 Hematocrit 42 % N 35-47 Mean Corpuscular Volume 88 fL N 80-97 Mean Corpuscular Hemoglobin 30 pg N 27-31 Mean Corpuscular HGB Conc 34 g/dL N 31-36 Red Cell Distribution Width 14 % N 10.5-15 Platelet Count 191 10^3/uL N 150-450 Mean Platelet Volume 9 um3 N 7.4-10.4 Abs Neutrophils 4.6 10^3/uL N 1.5-7.7 Abs Lymphocytes 1.8 10^3/uL N 1.0-4.8 Abs Monocytes 0.8 10^3/uL N 0-0.8 Abs Eosinophils 0.1 10^3/uL N 0-0.6 Abs Basophils 0.1 10^3/uL N 0-0.2 Abs Nucleated RBC 0 10^3/uL Granulocyte % 62.7 % N 38-83 Lymphocyte % 24.1 % Low 25-47 Monocyte % 11.1 % High 1-9 Eosinophil % 1.1 % N 0-6 Basophil % 1.0 % N 0-2 Nucleated Red Blood Cells % 0 Inr/Protime 01/08/2018 [facility] Inr 2.10 High 0.77-1.[address] [place] [address] [phone] Laboratory test 01/08/2018 [facility] Partial 46.4 High 26.0- 36.[address] [place] [address] Time PTT [phone] Lactic Acid 0.9 mmol/L N 0.5-2.0 14 B-Type Natriuretic Peptide BNP 354 pg/mL High 15 Comp Metabolic Panel 01/08/2018 [facility] Sodium 133 mmol/L N 133-[address] [place] [address] [phone] Potassium 4.2 mmol/L N 3.5-5.0 Chloride 101 mmol/L N 101-111 Co2 Carbon Dioxide 27 mmol/L N 22-32 Anion Gap 5 mmol/L N 2-11 Glucose 108 mg/dL High 70-100 Blood Urea Nitrogen 15 mg/dL N 6-24 Creatinine 0.88 mg/dL N 0.51-0.95 BUN/Creatinine Ratio 17.0 N 8-20 Calcium 9.7 mg/dL N 8.6-10.3 Total Protein 6.8 g/dL N 6.4-8.9 Albumin 3.9 g/dL N 3.2-5.2 Globulin 2.9 g/dL N 2-4 Albumin/Globulin Ratio 1.3 N 1-3 Total Bilirubin 0.60 mg/dL N 0.2-1.0 Alkaline Phosphatase 40 U/L N 34-104 Alt 27 U/L N 7-52 Ast 25 U/L N 13-39 Egfr Non- 65.3 >60 Egfr 84.0 >60 16 Laboratory test 01/08/2018 [facility] Magnesium 1.9 mg/dL N 1.9-2.[address] [place] [address] [phone] Creatine Kinase(CK) 46 U/L N 10-223 Troponin-I (TnI) 0.00 ng/mL <0.04 CKMB 01/08/2018 [facility] CKMB ng/mL 1.8 ng/mL N 0.6-6.[address] [place] [address] [phone] Laboratory test 01/08/2018 [facility] TSH 2.84 N 0.34-5.[address] (Thyroid mcIU/[place] [address] Stim Horm) [phone] Laboratory test 11/20/2017 [facility] TSH 1.54 N 0.34-5.[address] (Thyroid mcIU/[place] [address] Stim Horm) [phone] T3 Free 3.50 pg/mL N 2.5-3.9 Free T4 (Free Thyroxine) 1.19 ng/dL High 0.61-1.12 Laboratory test 11/17/2017 [facility] Blood Urea 15 mg/dL N 6- 24 [place] [address] [phone] Creatinine 11/17/2017 [facility] Creatinine 0.82 mg/dL N 0.51- [address] [place] [address] [phone] Egfr Non- 70.9 >60 Egfr 91.1 >60 17 Laboratory test 10/13/2017 [facility] TSH (Thyroid 7.01 High 0.34-5.[address] Stim Horm) mcIU/[place] [address] [phone] Free T4 (Free Thyroxine) 1.03 ng/dL N 0.61-1.12 Laboratory test 10/13/2017 [facility] Troponin-I (TnI) 0.00 ng/ mL <0.[address] [place], [place] [id number] [phone] Magnesium 2.0 mg/dL N 1.9-2.7 D Dimer Quantitative < 200 ng/mL N Less Than 230 18 Comp Metabolic Panel 10/13/2017 [facility] Sodium 135 mmol/L N 133-145 [address] [place] [address] [phone] Potassium 4.3 mmol/L N 3.5-5.0 Chloride 103 mmol/L N 101-111 Co2 Carbon Dioxide 27 mmol/L N 22-32 Anion Gap 5 mmol/L N 2-11 Glucose 87 mg/dL N 70-100 Blood Urea Nitrogen 15 mg/dL N 6-24 Creatinine 0.91 mg/dL N 0.51-0.95 BUN/Creatinine Ratio 16.5 N 8-20 Calcium 9.4 mg/dL N 8.6-10.3 Total Protein 6.9 g/dL N 6.4-8.9 Albumin 3.9 g/dL N 3.2-5.2 Globulin 3.0 g/dL N 2-4 Albumin/Globulin Ratio 1.3 N 1-3 Total Bilirubin 0.50 mg/dL N 0.2-1.0 Alkaline Phosphatase 32 U/L Low 34-104 Alt 15 U/L N 7-52 Ast 18 U/L N 13-39 Egfr Non- 62.8 >60 Egfr 80.8 >60 19 Laboratory test 10/13/2017 [facility] Lactic Acid 1.0 mmol/L N 0.5-2.0 20 finding [address] [place] [address] [phone] CBC Auto Diff 10/13/2017 [facility] White Blood 7.4 10^3/uL N 3.5-10.[address] [place] [address] [phone] Red Blood Count 4.67 10^6/uL N 4.0-5.4 Hemoglobin 13.9 g/dL N 12.0-16.0 Hematocrit 42 % N 35-47 Mean Corpuscular Volume 89 fL N 80-97 Mean Corpuscular Hemoglobin 30 pg N 27-31 Mean Corpuscular HGB Conc 34 g/dL N 31-36 Red Cell Distribution Width 14 % N 10.5-15 Platelet Count 185 10^3/uL N 150-450 Mean Platelet Volume 10 um3 N 7.4-10.4 Abs Neutrophils 4.2 10^3/uL N 1.5-7.7 Abs Lymphocytes 2.2 10^3/uL N 1.0-4.8 Abs Monocytes 0.8 10^3/uL N 0-0.8 Abs Eosinophils 0.1 10^3/uL N 0-0.6 Abs Basophils 0.1 10^3/uL N 0-0.2 Abs Nucleated RBC 0 10^3/uL Granulocyte % 56.8 % N 38-83 Lymphocyte % 29.7 % N 25-47 Monocyte % 11.5 % High 1-9 Eosinophil % 1.2 % N 0-6 Basophil % 0.8 % N 0-2 Nucleated Red Blood Cells % 0 Laboratory test 10/13/2017 [facility] Troponin-I (TnI) 0.01 ng/ mL <0.04 finding [address] [place] [address] [phone] Basic Metabolic 06/10/2017 [facility] Sodium 137 mmol/L N 133- 145 Panel [address] [place] [address] [phone] Potassium 4.1 mmol/L N 3.5-5.0 Chloride 105 mmol/L N 101-111 Co2 Carbon Dioxide 27 mmol/L N 22-32 Anion Gap 5 mmol/L N 2-11 Glucose 88 mg/dL N 70-100 Blood Urea Nitrogen 12 mg/dL N 6-24 Creatinine 0.69 mg/dL N 0.51-0.95 BUN/Creatinine Ratio 17.4 N 8-20 Calcium 9.2 mg/dL N 8.6-10.3 Egfr Non- 86.8 N >60 Egfr 111.6 N >60 21 Laboratory test 06/10/2017 [facility] Magnesium 1.8 mg/dL Low 1.9-2.7 finding [address] [place] [address] [phone] Lipid Profile 06/10/2017 [facility] Triglycerides 104 mg/dL N 22 (Trig/Chol/HDL) [address] [place] [address] [phone] Cholesterol 182 mg/dL N 23 HDL Cholesterol 42.5 mg/dL N 24 LDL Cholesterol 119 mg/dL N 25 Laboratory test 05/27/2017 [facility] Cytology SEE RESULT [address] [place] [address] [phone] Laboratory test 02/02/2017 [facility] TSH (Thyroid 2.01 mcIU/mL N 0.34-[address] Stim Horm) .60 [place] [address] [phone] T3 Free 3.40 pg/mL N 2.5-3.9 Free T4 (Free Thyroxine) 0.94 ng/dL N 0.61-1.12 Ua Routine 08/21/2016 [facility] Ua Specific [place] 1.010 Ua PH 5 Ua Color yellow Ua Appera clear Ua WBC neg Ua Protein neg Ua Glucose normal Ua Ketones neg Ua Bilirubin neg Ua Urobilinogen normal Ua Nitrite neg Ua Occult Blood about 250 Basic Metabolic Panel 08/21/2016 [facility] Sodium 135 mmol/L N 133-[address] [place] [address] [phone] Potassium 4.3 mmol/L N 3.5-5.0 Chloride 99 mmol/L Low 101-111 Co2 Carbon Dioxide 29 mmol/L N 22-32 Anion Gap 7 mmol/L N 2-11 Glucose 73 mg/dL N 70-100 Blood Urea Nitrogen 14 mg/dL N 6-24 Creatinine 0.72 mg/dL N 0.51-0.95 BUN/Creatinine Ratio 19.4 N 8-20 Calcium 8.9 mg/dL N 8.6-10.3 Egfr Non- 82.9 N >60 Egfr 106.6 N >60 27 CBC Auto Diff 08/21/2016 [facility] White Blood 10.4 10^3/uL N 3.5-10.[address] [place] [address] [phone] Red Blood Count 4.49 10^6/uL N 4.0-5.4 Hemoglobin 12.9 g/dL N 12.0-16.0 Hematocrit 39 % N 35-47 Mean Corpuscular Volume 88 fL N 80-97 Mean Corpuscular Hemoglobin 29 pg N 27-31 Mean Corpuscular HGB Conc 33 g/dL N 31-36 Red Cell Distribution Width 13 % N 10.5-15 Platelet Count 235 10^3/uL N 150-450 Mean Platelet Volume 8 um3 N 7.4-10.4 Abs Neutrophils 7.0 10^3/uL N 1.5-7.7 Abs Lymphocytes 1.6 10^3/uL N 1.0-4.8 Abs Monocytes 1.6 10^3/uL High 0-0.8 Abs Eosinophils 0.1 10^3/uL N 0-0.6 Abs Basophils 0.1 10^3/uL N 0-0.2 Abs Nucleated RBC 0 10^3/uL N Granulocyte % 67.0 % N 38-83 Lymphocyte % 15.1 % Low 25-47 Monocyte % 15.5 % High 1-9 Eosinophil % 1.4 % N 0-6 Basophil % 1.0 % N 0-2 Nucleated Red Blood Cells % 0 N Laboratory test 08/21/2016 [facility] Cytology SEE RESULT [address] [place] [address] [phone] Urine Culture And 08/21/2016 [facility] Urine Culture SEE RESULT [address] [place] [address] [phone] Laboratory test 08/21/2016 [facility] Blood Culture SEE RESULT [address] [place] [address] [phone] Urinalysis Profile 08/21/2016 [facility] Urine Color Colorless N [address] [place] [address] [phone] Urine Appearance Clear N Urine Specific [place] 1.014 N 1.010-1.030 Urine pH 7.0 N 5-9 Urine Urobilinogen Negative N Negative Urine Ketones Negative N Negative Urine Protein Negative N Negative Urine Leukocytes Negative N Negative Urine Blood 1+ Abnormal Negative Urine Nitrite Negative N Negative Urine Bilirubin Negative N Negative Urine Glucose Negative N Negative Urine White Blood Cell Absent N Absent Urine Red Blood Cell Trace(0-2/hpf) N Absent Urine Bacteria Absent N Absent Laboratory test finding 08/21/2016 [facility] Lipase 36 U/L N 11.0-82.[address] [place] [address] [phone] C Reactive Protein 78.75 mg/L High < 5.00 31 Comp Metabolic Panel 08/21/2016 [facility] Sodium 134 mmol/L N 133-[address] [place] [address] [phone] Potassium 3.9 mmol/L N 3.5-5.0 Chloride 99 mmol/L Low 101-111 Co2 Carbon Dioxide 28 mmol/L N 22-32 Anion Gap 7 mmol/L N 2-11 Glucose 88 mg/dL N 70-100 Blood Urea Nitrogen 12 mg/dL N 6-24 Creatinine 0.65 mg/dL N 0.51-0.95 BUN/Creatinine Ratio 18.5 N 8-20 Calcium 8.7 mg/dL N 8.6-10.3 Total Protein 6.6 g/dL N 6.4-8.9 Albumin 3.3 g/dL N 3.2-5.2 Globulin 3.3 g/dL N 2-4 Albumin/Globulin Ratio 1.0 N 1-3 Total Bilirubin 0.50 mg/dL N 0.2-1.0 Alkaline Phosphatase 58 U/L N 34-104 Alt 17 U/L N 7-52 Ast 17 U/L N 13-39 Egfr Non- 93.3 N >60 Egfr 120.0 N >60 32 Laboratory test 08/21/2016 [facility] Partial 33.9 seconds N 26.0-36.[address] [place] [address] PTT [phone] Lactic Acid 0.8 mmol/L N 0.5-2.0 33 Inr/Protime 08/21/2016 [facility] Inr 1.21 High 0.89-1.[address] [place] [address] [phone] CBC Auto Diff 08/21/2016 [facility] White Blood 9.8 N 3.5- 10.[address] Count 10^3/[place] [address] [phone] Red Blood Count 4.34 10^6/uL N 4.0-5.4 Hemoglobin 12.6 g/dL N 12.0-16.0 Hematocrit 38 % N 35-47 Mean Corpuscular Volume 88 fL N 80-97 Mean Corpuscular Hemoglobin 29 pg N 27-31 Mean Corpuscular HGB Conc 33 g/dL N 31-36 Red Cell Distribution Width 13 % N 10.5-15 Platelet Count 240 10^3/uL N 150-450 Mean Platelet Volume 9 um3 N 7.4-10.4 Abs Neutrophils 7.0 10^3/uL N 1.5-7.7 Abs Lymphocytes 1.4 10^3/uL N 1.0-4.8 Abs Monocytes 1.2 10^3/uL High 0-0.8 Abs Eosinophils 0.1 10^3/uL N 0-0.6 Abs Basophils 0.1 10^3/uL N 0-0.2 Abs Nucleated RBC 0 10^3/uL N Granulocyte % 71.7 % N 38-83 Lymphocyte % 14.3 % Low 25-47 Monocyte % 11.9 % High 1-9 Eosinophil % 1.3 % N 0-6 Basophil % 0.8 % N 0-2 Nucleated Red Blood Cells % 0 N Laboratory 02/05/2016 [facility] Magnesium 1.9 mg/dL N 1.9- 2.7 test finding [address] [place] [address] [phone] Laboratory 02/05/2016 [facility] Hepatitis C Nonreactive N Nonreactive test finding [address] [facility] [place] [place] [address] [phone] Basic 02/05/2016 [facility] Sodium 136 mmol/L N 133-145 Metabolic [address] [facility] [place] [address] [phone] Potassium 4.3 mmol/L N 3.5-5.0 Chloride 102 mmol/L N 101-111 Co2 Carbon Dioxide 31 mmol/L N 22-32 Anion Gap 3 mmol/L N 2-11 Glucose 86 mg/dL N 70-100 Blood Urea Nitrogen 15 mg/dL N 6-24 Creatinine 0.61 mg/dL N 0.51-0.95 BUN/Creatinine Ratio 24.6 High 8-20 Calcium 9.3 mg/dL N 8.6-10.3 Egfr Non- 100.4 N >60 Egfr 129.1 N >60 34 Basic Metabolic Panel 11/16/2015 [facility] Sodium 136 mmol/L N 133-145 [address] [place] [address] [phone] Potassium 4.7 mmol/L N 3.5-5.0 Chloride 102 mmol/L N 101-111 Co2 Carbon Dioxide 29 mmol/L N 22-32 Anion Gap 5 mmol/L N 2-11 Glucose 82 mg/dL N 70-100 Blood Urea Nitrogen 16 mg/dL N 6-24 Creatinine 0.66 mg/dL N 0.51-0.95 BUN/Creatinine Ratio 24.2 High 8-20 Calcium 9.4 mg/dL N 8.6-10.3 Egfr Non- 91.7 N >60 Egfr 117.9 N >60 35 Laboratory test 11/16/2015 [facility] Magnesium 1.8 mg/dL Low 1.9-2.7 finding [address] [place] [address] [phone] Digoxin 0.5 ng/ml Low 0.8-2.0 Comp Metabolic Panel 10/22/2015 [facility] Sodium 133 mmol/L N 133-145 [address] [place] [address] [phone] Potassium 4.1 mmol/L N 3.5-5.0 Chloride 97 mmol/L Low 101-111 Co2 Carbon Dioxide 30 mmol/L N 22-32 Anion Gap 6 mmol/L N 2-11 Glucose 135 mg/dL High 70-100 Blood Urea Nitrogen 12 mg/dL N 6-24 Creatinine 0.70 mg/dL N 0.51-0.95 BUN/Creatinine Ratio 17.1 N 8-20 Calcium 9.5 mg/dL N 8.6-10.3 Total Protein 7.0 g/dL N 6.4-8.9 Albumin 4.0 g/dL N 3.2-5.2 Globulin 3.0 g/dL N 2-4 Albumin/Globulin Ratio 1.3 N 1-3 Total Bilirubin 1.20 mg/dL High 0.2-1.0 Alkaline Phosphatase 50 U/L N 34-104 Alt 60 U/L High 7-52 Ast 39 U/L N 13-39 Egfr Non- 85.6 N >60 Egfr 110.1 N >60 36 Laboratory test 10/22/2015 [facility] Magnesium 1.8 mg/dL Low 1.9-2.[address] [place] [address] [phone] Coxsackie A 10/22/2015 [facility] Coxsackie <1:[address] [place] [address] A(2) Ab [phone] Cox[place]ackie Virus Type A(4) Ab <1:8 N [place] Virus Type A(7) Ab <1:8 N [place] Virus Type A(9) AB <1:8 N [place] Virus Type A(10) Ab <1:8 N [place] Virus Type A(16) Ab <1:8 N 37 Harrison Lux 10/22/2015 [facility] Ebv Capsid Positive N Negative Comprehensive [address] [place] [address] [phone] Ebv Capsid Ag IgM Ab Negative N Negative Harrison-Lux Nuclear Antigen Positive N Negative Harrison-Lux Virus Interp See Comment N 38 Laboratory test 10/22/2015 [facility] Digoxin 0.8 ng/ml N 0.8- 2.[address] [place] [address] [phone] CBC Auto Diff 10/18/2015 [facility] White Blood 6.3 10^3/uL N 4.8-10.[address] [place] [address] [phone] Red Blood Count 4.95 10^6/uL N 4.0-5.4 Hemoglobin 14.5 g/dL N 12.0-16.0 Hematocrit 45 % N 35-47 Mean Corpuscular Volume 90 fL N 80-97 Mean Corpuscular Hemoglobin 29 pg N 27-31 Mean Corpuscular HGB Conc 32 g/dL N 31-36 Red Cell Distribution Width 13 % N 10.5-15 Platelet Count 159 10^3/uL N 150-450 Mean Platelet Volume 9 um3 N 7.4-10.4 Abs Neutrophils 4.1 10^3/uL N 1.5-7.7 Abs Lymphocytes 1.1 10^3/uL N 1.0-4.8 Abs Monocytes 0.8 10^3/uL N 0-0.8 Abs Eosinophils 0.1 10^3/uL N 0-0.6 Abs Basophils 0.2 10^3/uL N 0-0.2 Abs Nucleated RBC 0 10^3/uL N Granulocyte % 64.8 % N 38-83 Lymphocyte % 17.6 % Low 25-47 Monocyte % 13.0 % High 1-9 Eosinophil % 1.3 % N 0-6 Basophil % 3.3 % High 0-2 Nucleated Red Blood Cells % 0 N Laboratory test 10/18/2015 [facility] Lactic Acid 0.8 mmol/L N 0.5-2.[address] [place] [address] [phone] Comp Metabolic 10/18/2015 [facility] Sodium 135 mmol/L N 133- 145 Panel [address] [place] [address] [phone] Potassium 3.6 mmol/L N 3.5-5.0 Chloride 103 mmol/L N 101-111 Co2 Carbon Dioxide 28 mmol/L N 22-32 Anion Gap 4 mmol/L N 2-11 Glucose 104 mg/dL High 70-100 Blood Urea Nitrogen 10 mg/dL N 6-24 Creatinine 0.67 mg/dL N 0.51-0.95 BUN/Creatinine Ratio 14.9 N 8-20 Calcium 9.2 mg/dL N 8.6-10.3 Total Protein 6.6 g/dL N 6.4-8.9 Albumin 3.8 g/dL N 3.2-5.2 Globulin 2.8 g/dL N 2-4 Albumin/Globulin Ratio 1.4 N 1-3 Total Bilirubin 0.70 mg/dL N 0.2-1.0 Alkaline Phosphatase 46 U/L N 34-104 Alt 97 U/L High 7-52 Ast 78 U/L High 13-39 Egfr Non- 90.1 N >60 Egfr 115.9 N >60 39 Laboratory test 10/18/2015 [facility] Magnesium 1.8 mg/dL Low 1.9-2.7 finding [address] [place] [address] [phone] Troponin-I (TnI) 0.00 ng/mL N <0.03 40 TSH (Thyroid Stim Horm) 1.39 ?IU/mL N 0.34-5.60 Basic Metabolic Panel 12/17/2014 [facility] Sodium 134 mmol/L N 133-145 [address] [place] [address] [phone] Potassium 4.1 mmol/L N 3.5-5.0 Chloride 103 mmol/L N 101-111 Co2 Carbon Dioxide 30 mmol/L N 22-32 Anion Gap 1 mmol/L Low 2-11 Glucose 72 mg/dL N 70-100 Blood Urea Nitrogen 17 mg/dL N 6-24 Creatinine 0.76 mg/dL N 0.51-0.95 BUN/Creatinine Ratio 22.4 High 8-20 Calcium 9.1 mg/dL N 8.6-10.3 Egfr Non- 78.2 N >60 Egfr 100.5 N >60 41 Basic Metabolic Panel 12/16/2014 [facility] Sodium 134 mmol/L N 133-145 [address] [place] [address] [phone] Potassium 4.1 mmol/L N 3.5-5.0 Chloride 103 mmol/L N 101-111 Co2 Carbon Dioxide 30 mmol/L N 22-32 Anion Gap 1 mmol/L Low 2-11 Glucose 72 mg/dL N 70-100 Blood Urea Nitrogen 17 mg/dL N 6-24 Creatinine 0.76 mg/dL N 0.51-0.95 BUN/Creatinine Ratio 22.4 High 8-20 Calcium 9.1 mg/dL N 8.6-10.3 Egfr Non- 78.2 N >60 Egfr 100.5 N >60 42 Pthi 11/13/2014 [facility] PTH Intact 3.4 pmol/L N 1.3-9.3 [address] [place] [address] [phone] Calcium (PTH Intact) 9.0 mg/dL N 8.6-10.3 Vitamin D, 25 11/13/2014 [facility] 25-Hydroxy Vitamin 4.5 ng/ mL N Hydroxy [address] [place] [address] [phone] 25-Hydroxy Vitamin D3 32 ng/mL N 25-Hydroxy Vitamin D Total 37 ng/mL N 43 Laboratory test 11/13/2014 [facility] TSH (Thyroid 1.75 IU/mL N 0.34-5.[address] [place] [address] Horm) [phone] Free T3 2.80 pg/mL N 2.5-3.9 Free T4 0.93 ng/mL N 0.61-1.12 Basic Metabolic 10/20/2014 [facility] Sodium 130 mmol/L Low 133-145 Panel [address] [place] [address] [phone] Potassium 3.9 mmol/L N 3.5-5.0 44 Chloride 98 mmol/L Low 101-111 Co2 Carbon Dioxide 26 mmol/L N 22-32 Anion Gap 6 mmol/L N 2-11 Glucose 80 mg/dL N 70-100 Blood Urea Nitrogen 9 mg/dL N 6-24 Creatinine 0.68 mg/dL N 0.51-0.95 BUN/Creatinine Ratio 13.2 N 8-20 Calcium 8.6 mg/dL N 8.6-10.3 Egfr Non- 88.9 N >60 Egfr 114.3 N >60 45 CBC Auto 10/20/2014 [facility] White Blood 4.6 10^3/uL Low 4.8 -10.[address] [place] [address] [phone] Red Blood Count 4.24 10^6/uL N 4.0-5.4 Hemoglobin 13.0 g/dL N 12.0-16.0 Hematocrit 39 % N 35-47 Mean Corpuscular Volume 92 fL N 80-97 Mean Corpuscular Hemoglobin 31 pg N 27-31 Mean Corpuscular HGB Conc 33 g/dL N 31-36 Red Cell Distribution Width 13 % N 10.5-15 Platelet Count 125 10^3/uL Low 150-450 Mean Platelet Volume 10 um3 N 7.4-10.4 Abs Neutrophils 3.5 10^3/uL N 1.5-7.7 Abs Lymphocytes 0.4 10^3/uL Low 1.0-4.8 Abs Monocytes 0.6 10^3/uL N 0-0.8 Abs Eosinophils 0 10^3/uL N 0-0.6 Abs Basophils 0 10^3/uL N 0-0.2 Abs Nucleated RBC 0 10^3/uL N Granulocyte % 75.6 % N 38-83 Lymphocyte % 9.8 % Low 25-47 Monocyte % 13.7 % High 1-9 Eosinophil % 0.6 % N 0-6 Basophil % 0.3 % N 0-2 Nucleated Red Blood Cells % 0.1 N Laboratory test 10/20/2014 [facility] Rapid Influenza (SEE NOTE ) [address] [place] [address] [phone] Laboratory test 10/17/2014 [facility] Cytology RUN DATE: [address] 10/18/ <[place] [address] NOTE> [phone] Human Papilloma Virus Rna Negative N Negative 48 Laboratory test 10/13/2014 [facility] TSH (Thyroid 4.13 IU/mL N 0.34-5.[address] [place] [address] Horm) [phone] Free T3 2.60 pg/mL N 2.5-3.9 Free T4 0.94 ng/mL N 0.61-1.12 CBC Auto Diff 09/29/2014 [facility] White Blood 9.4 10^3/uL N 4.8-10.[address] [place] [address] [phone] Red Blood Count 4.55 10^6/uL N 4.0-5.4 Hemoglobin 14.0 g/dL N 12.0-16.0 Hematocrit 42 % N 35-47 Mean Corpuscular Volume 92 fL N 80-97 Mean Corpuscular Hemoglobin 31 pg N 27-31 Mean Corpuscular HGB Conc 34 g/dL N 31-36 Red Cell Distribution Width 13 % N 10.5-15 Platelet Count 190 10^3/uL N 150-450 Mean Platelet Volume 9 um3 N 7.4-10.4 Abs Neutrophils 5.6 10^3/uL N 1.5-7.7 Abs Lymphocytes 2.5 10^3/uL N 1.0-4.8 Abs Monocytes 1.0 10^3/uL High 0-0.8 Abs Eosinophils 0.2 10^3/uL N 0-0.6 Abs Basophils 0.1 10^3/uL N 0-0.2 Abs Nucleated RBC 0.01 10^3/uL N Granulocyte % 60.0 % N 38-83 Lymphocyte % 26.3 % N 25-47 Monocyte % 10.2 % High 1-9 Eosinophil % 2.6 % N 0-6 Basophil % 0.9 % N 0-2 Nucleated Red Blood Cells % 0.1 N Comp Metabolic Panel 09/29/2014 [facility] Sodium 138 mmol/L N 133-[address] [place] [address] [phone] Potassium 4.1 mmol/L N 3.7-5.6 Chloride 103 mmol/L N 101-111 Co2 Carbon Dioxide 28 mmol/L N 22-32 Anion Gap 7 mmol/L N 2-11 Glucose 102 mg/dL High 70-100 Blood Urea Nitrogen 14 mg/dL N 6-24 Creatinine 0.83 mg/dL N 0.51-0.95 BUN/Creatinine Ratio 16.9 N 8-20 Calcium 9.4 mg/dL N 8.6-10.3 Total Protein 6.5 g/dL N 6.4-8.9 Albumin 3.9 g/dL N 3.2-5.2 Globulin 2.6 g/dL N 2-4 Albumin/Globulin Ratio 1.5 N 1-3 Total Bilirubin 0.50 mg/dL N 0.2-1.0 Alkaline Phosphatase 32 U/L Low 34-104 Alt 13 U/L N 7-52 Ast 18 U/L N 13-39 Egfr Non- 70.6 N >60 Egfr 90.8 N >60 49 Laboratory test 09/29/2014 [facility] Magnesium 1.9 mg/dL N 1.9-2.7 finding [address] [place] [address] [phone] Troponin I 0.00 ng/mL N <0.03 50 TSH (Thyroid Stimulating Horm) 6.43 IU/mL High 0.34-5.60 Laboratory 11/01/2013 [facility] TSH (Thyroid 6.00 High 0.34- 5.60 test finding 101 [facility] Stimulating miu/[place] [address] Horm) [phone] Free T4 0.84 ng/mL 0.61-1.24 Lipid Profile 11/01/2013 [facility] Triglycerides 98 mg/dL 40 -200 (Trig/Chol/HDL) [address] [place] [address] [phone] Cholesterol 208 mg/dL High Less than 200 HDL Cholesterol 64 mg/dL High 40-60 51 Cholesterol/HDL Ratio 3.3 Average 1-4.44 LDL Cholesterol 124.4 High Less Than 100 52 Comp Metabolic Panel 11/01/2013 [facility] Sodium 137 mmol/L 133-145 [address] [place] [address] [phone] Potassium 4.3 mmol/L 3.5-5.0 Chloride 102 mmol/L [...] Egfr Non- 86.2 >60 Egfr 110.9 >60 53 Laboratory test 11/01/2013 [facility] CRP High 0.8 mg/L [address] [place] [address] [phone] Laboratory test 09/05/2013 [facility] Cytology RUN DATE: [address] 09/06/ [place] [address] <SEE [phone] NOTE> Laboratory test 06/23/2013 [facility] Inr 0.86 Low 0.87- finding [address] 0.97 [place] [address] [phone] Activated Partial Thrombo Time 30.7 seconds 22.18-37.18 Comp Metabolic Panel 06/23/2013 [facility] Sodium 136 mmol/L 133-[address] [place] [address] [phone] Potassium 4.3 mmol/L 3.5-5.0 Chloride 101 mmol/L [...] Egfr Non- 74.2 >60 Egfr 95.4 >60 56 Laboratory test 06/23/2013 [facility] Magnesium 2.1 mg/dL 1.7 -2.[address] [place] [address] [phone] Creatine Kinase 60 U/L 0-200 CKMB 06/23/2013 [facility] CKMB ng/mL 2.5 ng/mL 0.3-4.[address] [place] [address] [phone] Laboratory test 06/23/2013 [facility] Troponin I 0.03 ng/mL 0 -0.06 [address] [place] [address] [phone] TSH (Thyroid Stimulating Horm) 5.87 miu/mL High 0.34-5.60 C Reactive Protein 0.5 mg/dL Less than 0.5 CBC Auto Diff 06/23/2013 [facility] White Blood 7.1 10^3/uL 4.8-10.[address] [place] [address] [phone] Red Blood Count 4.44 10^6/uL 4.0-5.4 Hemoglobin [...] Red Blood Cells % 0 Laboratory test 06/23/2013 [facility] Erythrocyte Sed 11 mm/Hr 0-[address] [place] [address] [phone] Laboratory test 06/01/2013 [facility] Lyme Disease Positive Negative [address] [place] [address] [phone] Lyme Western 06/01/2013 [facility] Lyme Disease IgG Negative Negative Blot [address] [place] [address] [phone] Lyme Disease IgG Bands Present p41, kDa Lyme Disease IgM Ab WB Positive Negative Lyme Disease IgM Bands Present p41, p23, kDa Lyme Disease Interpretation See Comment 60 Laboratory test 09/09/2012 [facility] CRP High 1.1 mg/L [address] [place] [address] [phone] Vitamin D, 25 09/09/2012 [facility] 25-Hydroxy Vitamin 6.3 ng/ mL Hydroxy [address] [place] D2 [place] [address] [phone] 25-Hydroxy Vitamin D3 25 ng/mL 25-Hydroxy Vitamin D Total 31 ng/mL 62 Comp Metabolic Panel 09/09/2012 [facility] Sodium 137 mmol/L 133-[address] [place] [address] [phone] Potassium 4.5 mmol/L 3.5-5.0 Chloride 106 mmol/L [...] 1.9 1-3 Total Bilirubin 1.0 mg/dL 0.1-1.0 63 Alkaline Phosphatase 38 U/L 30-110 Alt 16 U/L 14-54 Ast 24 U/L 12-42 Egfr Non- 86.6 >60 Egfr 111.3 >60 64 Lipid Profile 09/09/2012 [facility] Triglycerides 62 mg/dL 40 -200 (Trig/Chol/HDL) [address] [place] [address] [phone] Cholesterol 170 mg/dL Less than 200 65 HDL Cholesterol 57 mg/dL 40-60 66 Cholesterol/HDL Ratio 3.0 AVERAGE 1-4.44 LDL Cholesterol 100.6 mg/dL High Less Than 100 Laboratory test 09/09/2012 [facility] TSH (Thyroid 5.50 0.34- 5.[address] Stimulating MIU/[place] [address] Horm) [phone] Free T4 0.77 NG/ML 0.61-1.24 68 Laboratory test 09/01/2012 [facility] Cytology RUN DATE: [address] 09/02/ [place] [address] NOTE> [phone] Ua Routine 09/01/2012 [facility] Ua Specific 1.005 [place] Ua PH 7 Ua Color pale yellow Ua Appera clear Ua WBC neg Ua Protein neg Ua Glucose neg Ua Ketones neg Ua Bilirubin neg Ua Urobilinogen neg Ua Nitrite neg Ua Occult Blood Non hem trace Laboratory test 06/15/2012 [facility] Calcium 9.3 mg/dL 8.1- 9.[address] [place] [address] [phone] Basic Metabolic Panel 06/15/2012 [facility] Sodium 137 mmol/L 135-[address] [place] [address] [phone] Potassium 4.3 mmol/L 3.5-5.0 Chloride 103 mmol/L 101-111 Co2 (Carbon Dioxide) 28.0 mmol/L 22-32 Anion Gap 6.0 mmol/L 2-11 70 Glucose 95 mg/dL 70-100 BUN 16 mg/dL 6-24 Creatinine 0.7 mg/dL 0.50-1.40 One Over Creatinine 1.42 BUN/Creatinine Ratio 22.9 High 8-20 eGFR Non- 86.9 > 60 eGFR 111.7 > 60 71 Laboratory test 06/15/2012 [facility] TSH 5.43 MIU/ML 0.34- 5.[address] [place], [place] [address] [phone] Magnesium 2.1 mg/dL 1.7-2.6 Laboratory test 06/10/2011 [facility] TSH 4.68 MIU/ML 0.34- 5.[address] [place] [address] [phone] Thyroxine Free 0.86 ng/dL 0.61-1.24 Laboratory test 06/10/2011 [facility] Cytology <SEE [address] NOTE> [place] [phone] 1 Because ethnic data is not always readily [...] 15-29 5 Kidney failure <15 (or dialysis) 2 *Ascorbic acid is present which may interfere with detection of blood. 3 Because ethnic data is not always [...] 5 Kidney failure <15 (or dialysis) 5 Because ethnic data is not always [...] 5 Kidney failure <15 (or dialysis) 6 [MG] affected by ICTERUS 7 Because ethnic data is not always readily [...] 15-29 5 Kidney failure <15 (or dialysis) 8 Please note: The following may produce a false positive D Dimer test: - Rheumatoid factor greater than 60 IU/ml - Plasma hemoglobin greater than 0.05 gm/dl - Bilirubin greater than 50 mg/dl - Lipids greater than 1000 mg/dl - FDP greater than 20 ug/ml 9 >100 to <200 pg/mL: likely compensated congestive heart failure (CHF) 200 to 400 pg/mL: likely moderate CHF >400 pg/mL: likely moderate to severe CHF 10 [facility] Severe Sepsis and Septic Shock Management Bundle Measure requires all lactic acids initially measuring >2.0 mmol/L be repeated. 11 Because ethnic data is not always readily [...] 15-29 5 Kidney failure <15 (or dialysis) 12 Because ethnic data is not always readily [...] 15-29 5 Kidney failure <15 (or dialysis) 13 [facility] Severe Sepsis and Septic Shock Management Bundle Measure requires all lactic acids initially measuring >2.0 mmol/L be repeated. 14 [facility] Severe Sepsis and Septic Shock Management Bundle Measure requires all lactic acids initially measuring >2.0 mmol/L be repeated. 15 >100 to <200 pg/mL: likely compensated congestive heart failure (CHF) 200 to 400 pg/mL: likely moderate CHF >400 pg/mL: likely moderate to severe CHF 16 Because ethnic data is not always readily [...] 15-29 5 Kidney failure <15 (or dialysis) 17 Because ethnic data is not always [...] 5 Kidney failure <15 (or dialysis) 18 Please note: The following may produce a false positive D Dimer test: - Rheumatoid factor greater than 60 IU/ml - Plasma hemoglobin greater than 0.05 gm/dl - Bilirubin greater than 50 mg/dl - Lipids greater than 1000 mg/dl - FDP greater than 20 ug/ml 19 Because ethnic data is not always readily [...] 15-29 5 Kidney failure <15 (or dialysis) 20 [facility] Severe Sepsis and Septic Shock Management Bundle Measure requires all lactic acids initially measuring >2.0 mmol/L be repeated. 21 Because ethnic data is not always [...] 5 Kidney failure <15 (or dialysis) 22 Desirable <150 Borderline high 150-199 High 200-499 Very High >500 23 Desirable <200 Borderline high 200-239 High >239 24 Low <40 Desirable: 40-60 High: >60 25 Desirable: <100 mg/dL Near Optimal: 100-129 mg/dL Borderline High: 130-159 mg/dL High: 160-189 mg/dL Very High: >189 mg/dL 26 SEE RESULT BELOW Name: CARRIE MOORE : [address]: Zulay Kraus MD Acct: [id number] Unit: [id number] AGE: 61 Location: [facility] Re05/27/17 SEX: F Status: REG REF SPEC: [id number] CHRIS: 05/27/17-[address] [facility] [address]: Zulay Kraus MD REQ: [id number] RECD: 05/27/173148 STATUS: SOUT _ ORDERED: TP IMAGE ANAL, HPV 16/18 GENE COMMENTS: [id number] FINAL DIAGNOSIS Negative for Intraepithelial lesion or [...] was evaluated with the assistance of the Compliance 360Prep Test Imaging System. Due to cytologic findings at the acupuncture physician microscope, comprehensive manual rescreening by a County Ordinary may be required. The Pap Smear is [...] performed at Main Lab DEPARTMENT OF PATHOLOGY, [address] [place] [address] Uziel South M.D. Director [facility] # [id number] 27 Because ethnic data is not always [...] 5 Kidney failure <15 (or dialysis) 28 SEE RESULT BELOW Name: CARRIE MOORE : [address]: Gorge Gipson FREELANCE TRANSLATOR Acct: [id number] Unit: [id number] AGE: 60 Location: [facility] Re08/21/16 SEX: F Status: REG REF SPEC: [id number] CHRIS: 08/21/16-[address]: Gorge Gipson FREELANCE TRANSLATOR REQ: [id number] RECD: 08/21/16 STATUS: SOUT _ ORDERED: THIN PREP NON G COMMENTS: [id number] FINAL DIAGNOSIS Urine, voided: --Negative for malignant cells. URINE VOID GROSS DESCRIPTION 7.5 mls of clear pale yellow voided urine. Signed (signature on file) Gisela Ortega MD 1355 END OF REPORT * ML=Testing performed at Main Lab DEPARTMENT OF PATHOLOGY, [address] [place] [address] Uziel South M.D. Director [facility] # [id number] 29 SEE RESULT BELOW Name: CARRIE MOORE : [address]: Gorge Gipson FREELANCE TRANSLATOR Acct: [id number] Unit: [id number] AGE: 60 Location: [facility] Re08/21/16 SEX: F Status: REG REF SPEC: [id number] CHRIS: 08/21/16-[address]: Gorge Gipson NP REQ: [id number] RECD: 08/21/16 STATUS: COMP _ SOURCE: URINE SPDESC: ORDERED: Urine Culture COMMENTS: [id number] Procedure Result Reported Site Urine Culture Final 08/22/16- 1607 ML No Growth (<1,000 CFU/mL) * ML - MAIN LAB (PSC1) . END OF REPORT * ML=Testing performed at Main Lab DEPARTMENT OF PATHOLOGY, [address] [place] [address] Uziel South M.D. Director [facility] # [id number] 30 SEE RESULT BELOW Name: CARRIE MOORE : [address]: Darian Agosto MD Acct: [id number] Unit: [id number] AGE: 60 Location: [place] [address] Re08/21/16 Dis: 08/25/16 SEX: F Status: DIS IN SPEC: [id number] CHRIS: 08/21/16-[address] [facility] [address]: Dick Rice MD REQ: [id number] RECD: 08/21/16 STATUS: JOSTIN COBURN DR: Zulay Kraus MD _ SOURCE: BLOOD,[facility]: ORDERED: Blood Cult Procedure Result Reported Site Aerobic Culture Bottle Final 08/26/161939 ML No Growth Day 5 Anaerobic Culture Bottle Final 08/26/161939 ML No Growth Day 5 * ML - MAIN LAB (PSC1) . END OF REPORT * ML=Testing performed at Main Lab DEPARTMENT OF PATHOLOGY, [address] [place] [address] Uziel South M.D. Director [facility] # [id number] 31 Acute inflammation: >10.00 32 Because ethnic data is not always readily [...] 15-29 5 Kidney failure <15 (or dialysis) 33 [facility] Severe Sepsis and Septic Shock Management Bundle Measure requires all lactic acids initially measuring >2.0 mmol/L be repeated. 34 Because ethnic data is not always readily [...] 15-29 5 Kidney failure <15 (or dialysis) 35 Because ethnic data is not always [...] 5 Kidney failure <15 (or dialysis) 36 Because ethnic data is not always [...] 5 Kidney failure <15 (or dialysis) 37 REFERENCE RANGE: <1:8 INTERPRETIVE CRITERIA: <1:8 Antibody [...] its performance characteristics have been determined by [employer]. Performance characteristics refer to the analytical performance of the test. Test Performed by: [employer], [employer] [address] [place] [address] 38 RESULT: Results suggest past infection. ADDITIONAL INFORMATION [...] primary infection with EBV. Test Performed by: [address] [address] Express Manager: Yariel Alonso II, M.D., Ph.D. 39 Because ethnic data is not always [...] 5 Kidney failure <15 (or dialysis) 40 Reference Range and Interpretation: TnI (ng/mL) Interpretation Less Than 0.03 ng/mL Not supportive of diagnosis of DE 0.03 - 0.50 ng/mL Indeterminate: suggest serial studies if clinically indicated. Greater than 0.5 ng/mL Consistent with diagnosis of DE 41 Because ethnic data is not always [...] 5 Kidney failure <15 (or dialysis) 42 Because ethnic data is not always readily [...] 15-29 5 Kidney failure <15 (or dialysis) 43 REFERENCE VALUE 25-HYDROXY D TOTAL (D2+D3) Optimum levels in the healthy population are 20-50, patients with bone disease may benefit from higher levels within this range. Test Performed by: [facility] [place] [address] Express Manager: Nba Park M.D. 44 Potassium reference range changed effective 10/01/14 45 Because ethnic data is not always [...] 5 Kidney failure <15 (or dialysis) 46 RUN DATE: 10/21/14 [facility] LAB LIVE PAGE 1 RUN TIME: [address] [place] [address] Specimen Inquiry Name: CARRIE MOORE : [address]: Surya De Guzman MD Acct: [id number] Unit: [id number] AGE: 59 Location: [facility] Re10/20/14 SEX: F Status: DEP ER SPEC: [id number] CHRIS: 10/20/14-[address] [facility] [address]: Surya De Guzman MD REQ: [id number] RECD: 10/21/14-1215 STATUS: JOSTIN COBURN DR: Zulay Kraus MD _ SOURCE: [email or web address] SPDESC: ORDERED: Rapid Flu A B COMMENTS: Verbal to [id number] ([facility]) by [id number] at 1445 on 10/21/14. Results read back accurately. QUERIES: Med[employer] Number [id number] Procedure Result Verified Site Rapid Influenza A [...] performed at Main Lab DEPARTMENT OF PATHOLOGY, [facility] [place] [address] Uziel South M.D. Director [facility] # [id number] 47 RUN DATE: 10/18/14 [facility] LAB LIVE PAGE 1 RUN TIME: 1352 [facility] [employer] [place], [place] [address] Specimen Inquiry Name: CARRIE MOORE : [address]: Zulay Kraus MD Acct: [id number] Unit: [id number] AGE: 59 Location: [facility] Re10/17/14 SEX: F Status: REG REF SPEC: [id number] CHRIS: 10/17/14-[address] [facility] [address]: Zulay Kraus MD REQ: [id number] RECD: 10/17/148 STATUS: SOUT _ ORDERED: IMAGE ANALYSIS, HPV/Thin [...] once. Signed (signature on file) Alaina Scanlon [place] (ASCP) 10/18/14 7137 This Pap test was evaluated with the assistance of the Compliance 360Prep Test Imaging System. Due to cytologic findings at the acupuncture physician microscope, comprehensive manual rescreening by a County Ordinary may be required. The Pap Smear is [...] performed at Main Lab DEPARTMENT OF PATHOLOGY, [address] [place] [address] Uziel South M.D. Director [facility] # [id number] 48 The high-risk HPV types detected by the assay include: 16, 18, 31, 33, 35, 39, 45, 51, 52, 56, 58, 59, 66, and 68. 49 Because ethnic data is not always readily [...] 15-29 5 Kidney failure <15 (or dialysis) 50 Reference Range and Interpretation: TnI (ng/mL) Interpretation Less Than 0.03 ng/mL Not supportive of diagnosis of DE 0.03 - 0.50 ng/mL Indeterminate: suggest serial studies if clinically indicated. Greater than 0.5 ng/mL Consistent with diagnosis of DE 51 HDL Interpretation: Undesirable: High Risk: Less than 40 mg/dL Desirable: Low Risk: Greater than 60 mg/dL 52 LDL Interpretation: Low Risk Optimal Level: LDL Less than 100 mg/dL Near or Above Optimal: LDL 100-129 mg/dL Borderline High Risk: LDL 130-159 mg/dL High Risk: LDL 160-189 mg/dL Very High Risk: LDL Greater than 189 mg/dL 53 Because ethnic data is not always readily [...] 15-29 5 Kidney failure <15 (or dialysis) 54 Less Than 1.0......Low Risk of Cardiovascular Disease 1.0-3.0............Medium Risk (<2 Fold Increase) Greater Than 3.0...High Risk (Approximately 2-Fold Increase) 55 RUN DATE: 09/06/13 [facility] LAB LIVE PAGE 1 RUN TIME: [address] [place] [address] Specimen Inquiry Name: CARRIE MOORE : [address]: Fern Jean MD Acct: [id number] Unit: [id number] AGE: 57 Location: [facility] Re09/05/13 SEX: F Status: REG REF SPEC: [id number] CHRIS: 09/05/13-[address] [facility] [address]: Fern Jean MD REQ: [id number] RECD: 09/05/130074 STATUS: SOUT _ ORDERED: IMAGE ANALYSIS FINAL [...] ago Signed (signature on file) Alaina Scanlon [place] (ASCP) 09/06/13 1152 This Pap test was evaluated with the assistance of the O[employer] FACTORYp Test Imaging System. Due to cytologic findings at the acupuncture physician microscope, comprehensive manual rescreening by a County Ordinary may be required. The Pap Smear is [...] performed at Main Lab DEPARTMENT OF PATHOLOGY, [address] [place] [address] Uziel South M.D. Director [facility] Permit #[id number] 56 Because ethnic data is not always [...] 5 Kidney failure <15 (or dialysis) 57 CKMB interpretation should be made in conjunction with clinical symptoms, patient history and EKG changes. 58 Reference Range and Interpretation: TnI (ng/mL) Interpretation Less Than 0.06 ng/mL Not supportive of diagnosis of DE 0.06 - 0.50 ng/mL Indeterminate: suggest serial studies if clinically indicated. Greater than 0.5 ng/mL Consistent with diagnosis of DE 59 Not diagnostic. Supplemental testing ordered by reflex. Test Performed by: [place] [address] Express Manager: Louie Burkett III, M.D. 60 Consistent with early infection with Borrelia burgdorferi. [...] screening test (e.g., EIA). Test Performed by: [place] [address] Express Manager: Louie Burkett III, M.D. 61 Less Than 1.0......Low Risk of Cardiovascular Disease 1.0-3.0............Medium Risk (<2 Fold Increase) Greater Than 3.0...High Risk (Approximately 2-Fold Increase) 62 -- REFERENCE VALUE -- 25-HYDROXY D TOTAL (D2+D3) Optimum levels in the normal population are 25-80 Test Performed by: [address] [address] Express Manager: Louie Burkett III, M.D. R 63 A metabolite of Naproxen, O-desmethylnaproxen, has been shown to interfere with the Jendrassik-Bobbi method for measuring total bilirubin. Samples from patients who have taken Naproxen have shown spurious elevation in total bilirubin levels. 64 Because ethnic data is not always readily [...] 15-29 5 Kidney failure <15 (or dialysis) 65 Desirable: Less than 200 MG/DL Borderline-High Risk: 200-239 MG/DL High-Risk: 240 MG/DL and over 66 HDL Interpretation: Undesirable: High Risk: Less than 40 MG/DL Desirable: Low Risk: Greater than 60 MG/DL 67 FASTING 68 FASTING 69 RUN DATE: 09/02/12 [facility] LAB LIVE PAGE 1 RUN TIME: 0585 [address] [place], [place] [address] Specimen Inquiry Name: CARRIE MOORE : [address]: Fern Jean MD Acct: [id number] Unit: [id number] AGE: 56 Location: [facility] Re09/01/12 SEX: F Status: REG REF SPEC : [id number] RECD: 09/02/12 STATUS: ELBA HARPER NUM: [id number] CHRIS: 09/01/[address] [facility] [address]: Fern Jean MD ENTERED: 09/02/12 SP [...] (signature on file) DESTIN Ledesma (ASCP) 09/02 6562 This Pap test was evaluated with the assistance of the IM-Sense Test Imaging System. Due to cytologic findings at the acupuncture physician microscope, comprehensive manual rescreening by a County Ordinary may be required. The Pap Smear is [...] performed at Main Lab DEPARTMENT OF PATHOLOGY, [address] [place] [address] Uziel South M.D. Director [facility] Permit #[id number] 70 Anion gap measurement may be of limited value in the presence of any alkalosis, especially in a combined acid base disorder. . 71 Because ethnic data is not always readily [...] 15-29 5 Kidney failure <15 (or dialysis) 72 ---- RUN DATE: 06/11/11 [facility] NMI LIVE PAGE 1 RUN TIME: 1456 Specimen Inquiry RUN USER: INTERFACE -- Name: CARRIE MOORE Status: REG REF Re06/10/11 Age/Sex: 55/F Unit#: [id number] Location: [facility] : 57 -- Specimen: [id number] SOUT Spec Date: 06/10/[address]: Fern Jean MD Spec Type: CYTOLOGY [...] years. Initial evaluation performed by Roshan JURADO CT(ASC) 06/11/11 Final Interpretation electronically signed by: Roshan JURADO CT(ASC) 06/11/11 1456 -- DEPARTMENT OF PATHOLOGY, [address] [place] [address] [facility] Permit #[id number] Uziel South M.D. Director Ally Hooks M.D. Technical Coordinator Dir sam -- Procedures Date Code Description Status 03/03/2019 35213 EKG Tracing & Interpretation Completed 02/10/2019 18604 ECHO Transthoracic, Real-Time 2D With Doppler And Completed Color Flow 02/10/2019 34432 ECHO Transthoracic, Real-Time 2D With Doppler And Completed Color Flow 01/25/2019 67474 EKG Tracing & Interpretation Completed 10/13/2018 07538 EKG, Interpretation Only Completed 10/13/2018 86299 Cardioversion Completed 10/01/2018 85477 EKG Tracing & Interpretation Completed 09/14/2018 13379 Moderate Sedation Services; Same Phys Intl 15 Mins; PT Completed >=5 Years 09/14/2018 65696 Cardioversion Completed 09/13/2018 89004 EKG Tracing & Interpretation Completed 09/13/2018 26671 EKG Tracing & Interpretation Completed 09/06/2018 80308 Holter Monitor Review (24 hr)dr review & interp only Completed 08/27/2018 53020 ECG Monitor/Recording W/Visual Superimposition Completed Scanning 08/27/2018 39340 EKG Tracing & Interpretation Completed 08/19/2018 80164 EKG, Interpretation Only Completed 08/19/2018 39475 Cardioversion Completed 08/10/2018 92219 EKG, Interpretation Only Completed 08/10/2018 45668 Cardioversion Completed 03/08/2018 [id number] Mammogram Completed 02/12/2018 25644 Echocardiography, Transesophageal, Real Time W/Image Completed 2D W/W/O M-M 02/12/2018 73855 Pulse Wave/Continuous-Interp.RPT Completed 02/12/2018 19006 Color Flow Doppler/Interp & Reprt Completed 02/12/2018 30754 Moderate Sedation Services; Same Phys Intl 15 Mins; PT Completed >=5 Years 02/12/2018 68204 Moderate Sedation Services; Same Phys Each Additional Completed 15 Mins 02/04/2018 26798 ECHO Transthorasic Realtime 2D W Doppler & Color Flow Completed Hosp 11/18/2017 [id number] Bone Mineral Density Test Completed 11/17/2017 38862 ECHO Transthorasic Realtime 2D W Doppler & Color Flow Completed Hosp 11/09/2017 06115 EKG Tracing & Interpretation Completed 10/14/2017 04127 Moderate Sedation Services; Same Phys Intl 15 Mins; PT Completed >=5 Years 10/14/2017 36105 Cardioversion Completed 02/17/2017 [id number] Mammogram Completed 11/17/2016 08969 EKG Tracing & Interpretation Completed 08/24/2016 31115 EKG, Interpretation Only Completed 08/23/2016 45962 EKG, Interpretation Only Completed 02/15/2016 [id number] Mammogram Completed 01/16/2016 71011 Polysomnography Sleep Staging 4+ Parameters Completed 12/03/2015 59982 EKG Tracing & Interpretation Completed 10/10/2015 05175 EKG Tracing & Interpretation Completed 03/19/2015 26469 ECHO Transthorasic Realtime 2D W Doppler & Color Flow Completed Hosp 12/14/2014 52096 EKG Tracing & Interpretation Completed 10/31/2014 [id number] Bone Mineral Density Test Completed 10/31/2014 [id number] Mammogram Completed 09/29/2014 97909 EKG, Interpretation Only Completed 09/13/2014 05451 EKG Tracing & Interpretation Completed 03/06/2014 96290 ECHO Transthorasic Realtime 2D W Doppler & Color Flow Completed Hosp 11/07/2013 [id number] Mammogram Completed 09/05/2013 64869 EKG Tracing & Interpretation Completed 07/22/2013 31902 Myocardial Perfusion Imaging Tomographic (Spect) Completed Multiple Studies 07/22/2013 07930 Stress Test Completed 07/19/2013 94142 Stress Test Completed 07/13/2013 22590 Holter Monitor Review (24 hr)dr review & interp only Completed 07/11/2013 61262 EKG Tracing & Interpretation Completed 07/05/2013 30591 ECHO Transthorasic Realtime 2D W Doppler & Color Flow Completed Hosp 06/23/2013 93922 EKG Tracing & Interpretation Completed 09/09/2012 [id number] Mammogram Completed 09/09/2012 113962710 Bone Mineral Density Test Completed 06/15/2012 44141 EKG Tracing & Interpretation Completed 07/01/2011 94304743 Colonoscopy Completed 04/15/2011 [id number] Mammogram Completed 03/19/2011 20546 EKG Tracing & Interpretation Completed 02/07/2010 48587172 Mammogram Completed 02/07/2010 307228931 Bone Mineral Density Test Completed 01/30/2010 64149 EKG Tracing & Interpretation Completed 01/05/2009 23366 EKG Tracing & Interpretation Completed 12/27/2007 96554 EKG Tracing & Interpretation Completed 12/27/2007 90258 EKG Tracing & Interpretation Completed 11/24/2006 74861 EKG Tracing & Interpretation Completed Encounters Type Date Location Provider Dx Diagnosis Office Visit 03/03/2019 [facility] Arlen Henderson, R60.0 Localized edema 2:40p Of Latrell Lugo I48.0 Paroxysmal atrial fibrillation Q87.410 Marfan's syndrome with aortic dilation I71.2 Thoracic aortic aneurysm, without rupture Office Visit 02/22/2019 4:00p [facility] [place] I83.10 Varicose veins of Medicine - Brittney Kraus unsp lower [place] extremity with inflammation R60.0 Localized edema Office Visit 01/27/2019 Orth[facility] Ezequiel M84.374D Stress fracture, 9:30a Services Of Brittney Call right foot, subs C.M.A. for fx w routn heal Office Visit 01/25/2019 [facility] Arlen Henderson I48.0 Paroxysmal atrial 9:45a Cardiology Of M.D. fibrillation [facility] Q87.410 Marfan's syndrome with aortic dilation I34.0 Nonrheumatic mitral (valve) insufficiency Office Visit 01/04/2019 9:15a Orthopedic Ezequiel M79.671 Pain in right Services Of Brittney Call foot C.M.A. Office Visit 12/02/2018 10:30a Orthopedic Ezequiel M79.671 Pain in right Services Of Brittney Call foot C.M.A. Office Visit 11/16/2018 11:10a [facility] Internal [place] Z00.00 Encntr for Medicine - Brittney Kraus general adult [facility] medical exam w/o abnormal findings M81.0 Age-related osteoporosis w/o current pathological fracture M79.671 Pain in right foot Z12.11 Encounter for screening for malignant neoplasm of colon Office Visit 11/09/2018 10:30a [facility] Maria C S. I48.0 Paroxysmal atrial Of Dec[facility]er Foster, N.P. fibrillation Q87.410 Marfan's syndrome with aortic dilation Z79.01 nursing home (current) use of anticoagulants Office Visit 10/01/2018 1:30p [facility] Maria C S. I48.0 Paroxysmal atrial Of Decoration Checker Foster, N.P. fibrillation R00.0 Tachycardia, unspecified R94.31 Abnormal electrocardiogram [ECG] [EKG] Q87.410 Marfan's syndrome with aortic dilation Office Visit 09/13/2018 4:40p [facility] Arlen Henderson I48.92 Unspecified Of Latrell M.DJan atrial flutter R00.0 Tachycardia, unspecified Office Visit 08/27/2018 1:30p [facility] Maria C S. I48.0 Paroxysmal atrial Of Decoration Checker Foster, N.P. fibrillation I77.810 Thoracic aortic ectasia Z79.01 nursing home (current) use of anticoagulants Office Visit 08/18/2018 [facility] Arlen Henderson I48.91 Unspecified atrial 12:58p Of Latrell M.D. fibrillation Office Visit 08/18/2018 [facility] Lianna Mcgowan, I48.91 Unspecified atrial 10:32a Assoc,pc DO fibrillation Hospitalists Office Visit 08/10/2018 [facility] Edson Vogt I48.0 Paroxysmal atrial 12:39p Of Latrell Smith M.D. fibrillation Q87.40 Marfan's syndrome, unspecified Z79.01 nursing home (current) use of anticoagulants Office Visit 08/10/2018 10:37a [facility] Marquita Wiliam, I48.91 Unspecified atrial Assoc,pc N.P. fibrillation Hospitalists Z86.79 Personal history of other diseases of the circulatory system I77.810 Thoracic aortic ectasia M85.80 Ot disrd of bone density and structure, unspecified site I34.0 Nonrheumatic mitral (valve) insufficiency E03.9 Hypothyroidism, unspecified Q87.40 Marfan's syndrome, unspecified Office Visit 08/09/2018 [facility] Danial I48.91 Unspecified 10:37a Assoc,pc Adán N.P. atrial Hospitalists fibrillation I77.810 Thoracic aortic ectasia M25.511 Pain in right shoulder I34.0 Nonrheumatic mitral (valve) insufficiency E03.9 Hypothyroidism, unspecified Q87.40 Marfan's syndrome, unspecified Office Visit 08/05/2018 [facility] Internal [place] S13.8xxA Sprain of joints 11:10a Ninfa Kraus M.D. and ligaments of [place] ot prt neck, init encntr Office Visit 07/29/2018 [facility] Internal Henry Jesse, M25.511 Pain in right 10:40a Medicine FREELANCE TRANSLATOR shoulder Office Visit 01/19/2018 [place] Meir Bone, Q87.40 Marfan's syndrome, 2:40p Cardiology Of THADDEUS Lugo, unspecified Latrell AT [facility] Office Visit 11/09/2017 [facility] Meir Bone, I48.0 Paroxysmal atrial 1:20p Cardiology Laci Lugo, THADDEUS, fibrillation [facility] AT [facility] Q87.40 Marfan's syndrome, unspecified I34.1 Nonrheumatic mitral (valve) prolapse Office Visit 10/20/2017 10:30a [facility] Internal [place] I48.0 Paroxysmal atrial Ninfa Kraus M.D. fibrillation [place] E03.9 Hypothyroidism, unspecified Z23 Encounter for immunization Office Visit 10/14/2017 [facility] Yuriy I48.91 Unspecified atrial 8:30a Assocfatimah M.D. fibrillation Hospitalists Q87.40 Marfan's syndrome, unspecified E03.9 Hypothyroidism, unspecified Office Visit 10/14/2017 [facility] Arlen Henderson, I48.0 Paroxysmal atrial 11:59a Of Latrell Lugo fibrillation Office Visit 10/13/2017 [facility] Berna I48.91 Unspecified atrial 8:29a Assoc,fatimah Madison D.O. 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 Office Visit 05/27/2017 10:30a [facility] Internal [place] M81.0 Age-related Medicine - Brittney Kraus osteoporosis w/o [place] current pathological fracture E87.6 Hypokalemia E83.42 Hypomagnesemia R21 Rash and other nonspecific skin eruption Z13.220 Encounter for screening for lipoid disorders Z00.01 Encounter for general adult medical exam w abnormal findings Z12.4 Encounter for screening for malignant neoplasm of cervix H61.22 Impacted cerumen, left ear Office Visit 11/17/2016 3:00p [facility] Meir Bone, Q87.40 Marfan's Of [facility] AT [facility] MJuan, FACC, syndrome, FSCAI unspecified I34.0 Nonrheumatic mitral (valve) insufficiency I48.0 Paroxysmal atrial fibrillation I34.1 Nonrheumatic mitral (valve) prolapse Office Visit 09/09/2016 9:30a Surgical Darian Montero K35.3 Acute appendicitis Associates Of Latrell Agosto M.D. with localized peritonitis Office Visit 08/25/2016 1:41p [facility] Ezequiel I48.0 Paroxysmal atrial Assoc,fatimah Wells M.D. fibrillation Hospitalists K35.3 Acute appendicitis with localized peritonitis E03.9 Hypothyroidism, unspecified Office Visit 08/24/2016 [facility] Makeda I48.0 Paroxysmal atrial 1:41p Assoc,pc [place], FREELANCE TRANSLATOR fibrillation Hospitalists K35.3 Acute appendicitis with localized peritonitis E03.9 Hypothyroidism, unspecified Office Visit 08/24/2016 4:36p [facility] Viktor Romo I48.0 Paroxysmal atrial Of [facility] Pedro, DO fibrillation FAC Office Visit 08/23/2016 1:39p [facility] Makeda I48.0 Paroxysmal atrial Assoc,fatimah Lovelace, FREELANCE TRANSLATOR fibrillation Hospitalists K35.3 Acute appendicitis with localized peritonitis E03.9 Hypothyroidism, unspecified Office Visit 08/21/2016 2:00p [facility] Internal Gorge Yi, R10.31 Right lower Medicine - [place] FREELANCE TRANSLATOR quadrant pain Rd R35.0 Frequency of micturition Office Visit 02/07/2016 10:45a Pulmonology And Yudi G47.33 Obstructive sleep Sleep Services Of MD Liban apnea (adult) [facility] (pediatric) Office Visit 02/05/2016 11:10a [facility] Internal [place] Z00.00 Encntr for Ninfa Kraus M.D. general adult medical exam w/o abnormal findings Z12.31 Encntr screen mammogram for malignant neoplasm of breast E83.42 Hypomagnesemia E87.6 Hypokalemia Z11.59 Encounter for screening for other viral diseases Office Visit 12/18/2015 10:15a Pulmonology And Yudi G47.9 Sleep disorder, Sleep Services Of MD [place] unspecified [facility] Office Visit 12/03/2015 3:20p [facility] Meir Bone, I48.0 Paroxysmal atrial Of [facility] AT [facility] Brittney, [facility], fibrillation FSCAI I34.0 Nonrheumatic mitral (valve) insufficiency Q87.40 Marfan's syndrome, unspecified Office Visit 10/22/2015 11:10a [facility] Internal [place] B34.9 Viral infection, Ninfa Kraus M.D. unspecified I48.0 Paroxysmal atrial fibrillation R74.0 Nonspec elev of levels of transamns & lactic acid dehydrgnse E87.6 Hypokalemia E83.42 Hypomagnesemia R06.83 Snoring Office Visit 10/19/2015 [facility] Yuriy I48.91 Unspecified atrial 10:43a Assoc,fatimah Bunch M.D. fibrillation Hospitalists Q87.40 Marfan's syndrome, unspecified I95.9 Hypotension, unspecified Office Visit 10/18/2015 [facility] Danial I48.91 Unspecified 10:42a Assoc,fatimah Mccain N.P. atrial Hospitalists fibrillation Q87.40 Marfan's syndrome, unspecified I95.9 Hypotension, unspecified Office Visit 10/18/2015 3:45p [place] Arlen Henderson, I48.0 Paroxysmal atrial Cardiology Of Brittney fibrillation [facility] Office Visit 10/10/2015 3:40p [facility] Meir Bone, I34.0 Nonrheumatic mitral Cardiology Of THADDEUS Lugo, (valve) [facility] AT [facility] insufficiency I48.0 Paroxysmal atrial fibrillation I77.810 Thoracic aortic ectasia Office Visit 09/20/2015 [facility] Internal [place] B30.1 Conjunctivitis due 11:50a Ninfa Kraus M.D. to adenovirus Office Visit 02/19/2015 Orthopedic Jd Dennis, 726.10 Bursae & Tendon 9:45a Services Of Brittney Disorders Shoulder C.M.A. Region Unspec Office Visit 02/05/2015 Orth[facility] Jd Dennis, 840.4 Sprains & Strains 11:00a Services Of Brittney Rotator Cuff C.M.A. (Capsule) Office Visit 12/14/2014 [place] Meir Bone, 427.31 Atrial Fibrillation 3:20p Cardiology Of THADDEUS Lugo, [facility] AT [facility] 424.0 Mitral Valve Disorder 759.82 Marfan Syndrome Office Visit 11/07/2014 10:50a [facility] Internal [place] 733.01 Osteoporosis Senile Ninfa Kraus M.D. 786.2 Cough Office Visit 10/17/2014 9:10a [facility] Internal [place] V70.0 Examination Medicine Brittney Kraus General Medical Routine AT Health Care Facility V76.10 Screening For Malignant Neoplasm Breast 244.9 Hypothyroidism Other Unspec 733.90 Bone & Cartilage Disorder Unspec 840.4 Sprains & Strains Rotator Cuff (Capsule) V04.81 Need For Prophylactic Vaccination & Inoculation/Influenza V76.2 Screening Malignant Neoplasm Cervix V06.1 Ebetoalrkw-Pkurpeu-Bicwkcie Combined (DTaP) V72.31 Routine Spool Sander Examination Office Visit 09/30/2014 10:58a Barre Cali Jc 427.31 Atrial Cardiology Brittney Becker Fibrillation 759.82 Marfan Syndrome Office Visit 09/30/2014 [facility] 427.31 Atrial 12:15p fatimah Evans M.D. Fibrillation Hospitalists 244.9 Hypothyroidism Other Unspec 759.82 Marfan Syndrome Office Visit 09/29/2014 [facility] 427.31 Atrial 12:14p fatimah Evans M.D. Fibrillation Hospitalists 244.9 Hypothyroidism Other Unspec 759.82 Marfan Syndrome Office Visit 09/29/2014 12:29p [facility] Jared Chaparro 427.31 Atrial Of [facility] Brittney Garcia, Fibrillation FACC, FASNC 424.0 Mitral Valve Disorder Office Visit 09/13/2014 2:20p [facility] Meir Bone 427.31 Atrial Of [facility] AT [facility] Brittney, FACC, Fibrillation FSCAI 424.0 Mitral Valve Disorder Office Visit 03/21/2014 11:40a [facility] Internal Fern Jean, 088.81 Lyme Disease Medicine M.Torie, FACP 300.00 Anxiety State Unspec Office Visit 09/05/2013 9:20a [facility] Internal Fern Jean, 780.79 Malaise And Medicine M.Torie, FACP Fatigue Other V70.0 Examination General Medical Routine AT Health Care Facility V72.31 Routine Spool Sander Examination V76.10 Screening For Malignant Neoplasm Breast 424.0 Mitral Valve Disorder 427.31 Atrial Fibrillation 244.9 Hypothyroidism Other Unspec 759.82 Marfan Syndrome V04.81 Need For Prophylactic Vaccination & Inoculation/Influenza 272.0 Hypercholesterolemia Pure v76.2 Screening Malignant Neoplasm Cervix Office Visit 08/04/2013 9:15a [facility] Meir Bone 427.31 Atrial Of [facility] Brittney, FACC, Fibrillation FSCAI 424.0 Mitral Valve Disorder Office Visit 07/11/2013 10:30a [facility] Meir Bone 424.0 Mitral Valve Of [facility] AT [facility] MJuan, FACC, Disorder FSCAI Office Visit 06/29/2013 10:00a [facility] Internal Fern Jean, 427.31 Atrial Medicine MJuan, FACP Fibrillation 244.9 Hypothyroidism Other Unspec Office Visit 06/23/2013 8:40a [facility] Internal Fern Jean, 786.59 Pain Chest Medicine MJuan, FACP Other 427.31 Atrial Fibrillation Office Visit 06/01/2013 10:20a [facility] Internal Fern Jean, 088.81 Lyme Disease Medicine M.Nathan., FACP Office Visit 09/01/2012 1:20p [facility] Internal Fern Jean, V70.0 Examination Medicine M.D., FACP General Medical Routine AT Health Care Facility V72.31 Routine Spool Sander Examination V76.10 Screening For Malignant Neoplasm Breast 244.9 Hypothyroidism Other Unspec 759.82 Marfan Syndrome 733.90 Bone & Cartilage Disorder Unspec 300.00 Anxiety State Unspec V04.81 Need For Prophylactic Vaccination & Inoculation/Influenza Office Visit 07/05/2012 11:00a [facility] Internal Oanh Bateman, 300.00 Anxiety State Medicine M.D. Unspec Office Visit 06/15/2012 11:20a [facility] Internal Oanh Bateman, 759.82 Marfan Syndrome Medicine M.DJan 244.9 Hypothyroidism Other Unspec 785.1 Palpitations 300.00 Anxiety State Unspec Office Visit 06/10/2011 2:20p DO Not Use Fern Jean, 759.82 Marfan Syndrome Edy Lugo, FACP 477.9 Rhinitis Allergic Cause Unspec V72.31 Routine Spool Sander Examination V70.0 Examination General Medical Routine AT Health Care Facility 244.9 Hypothyroidism Other Unspec Office Visit 03/19/2011 2:15p DO Not Use Fern Jean, 366.00 Cataract Edy Lugo, FACP Nonsenile Unspec 759.82 Marfan Syndrome V72.84 Examination Preoperative Unspec V76.12 Screening Mammogram Malig Valentin Other Office Visit 06/25/2010 4:15p DO Not Use Fern Jean 692.6 Dermatitis Edy Lugo, FACP Contact Due To Plants (Except Food) Office Visit 02/27/2010 11:00a DO Not Use Fern Jean, 733.90 Bone & Cartilage Edy Lugo, FACP Disorder Unspec Office Visit 01/30/2010 9:15a DO Not Use Fern Jean, V72.31 Routine Spool Sander Edy Lugo, FACP Examination 759.82 Marfan Syndrome V04.81 Need For Prophylactic Vaccination & Inoculation/Influenza Office Visit 07/31/2009 DO Not Use Carmelo Tabor2.6 Dermatitis 3:00p Edy N.P. Contact Due To Plants (Except Food) Office Visit 02/01/2009 DO Not Use Fern Miranda, 716.99 Arthropathy 2:30p Edy Lugo, FACP Unspec Multiple Sites 759.82 Marfan Syndrome Office Visit 01/05/2009 1:15p DO Not Use Fern Miranda, V72.31 Routine Spool Sander Edy Lugo, FACP Examination 719.40 Pain Joint Site Unspec 759.82 Marfan Syndrome 244.9 Hypothyroidism Other Unspec V04.81 Need For Prophylactic Vaccination & Inoculation/Influenza Office Visit 05/02/2008 DO Not Use Fern Miranda, V07.8 Other Unspecified 10:45a Edy Lugo, FACP Prophylactic Or Treatment Measure Office Visit 02/07/2008 DO Not Use Fern Miranda, 733.90 Bone & Cartilage 11:15a Edy Lugo, FACP Disorder Unspec Office Visit 12/27/2007 DO Not Use Fern Miranda, V72.31 Routine Spool Sander 10:45a Edy Lugo, FACP Examination 733.90 Bone & Cartilage Disorder Unspec 244.9 Hypothyroidism Other Unspec 759.82 Marfan Syndrome 272.0 Hypercholesterolemia Pure Office Visit 11/24/2006 11:30a DO Not Use Fern Miranda, V72.31 Routine Spool Sander Edy Lugo, FACP Examination V04.81 Need For Prophylactic Vaccination & Inoculation/Influenza Office Visit 09/15/2006 2:15p DO Not Use Fern Miranda, 466.0 Bronchitis Acute Edy Lugo, FACP Plan of Treatment Future Appointment(s):04/04/2019 4:00 pm - Arlen Henderson M.D. at [facility]03/24/2019 9:30 am - Ezequiel Call M.D. at [facility]03/08/2019 - Amita Ennis M.D.R60.1 Generalized edemaComments:I will check into the CT at the end of the day and call you
--- OUTSIDE RECORDS SUMMARY | 2019-03-12 20:30 | XMS REPORT | Continuity of Care Document ---
:1955 External Reference #:[id number] Author Name Colleen العلي Care Team Providers Name Role Phone Zulay Kraus MD Primary Care Physician Unavailable Payers Date Identification Numbers Payment Provider Subscriber Policy Number: [id number] [facility] Carrie Moore PayID: [id number] [address] [place] [address] Advance Directives Description No Information Available Problems Date Description Provider Status Onset: 03/17/2011 Marfan's syndrome Fern Jean M.D., FACP Active Onset: 03/17/2011 Hypothyroidism Fern Jean M.D., FACP Active Onset: 09/13/2014 Mitral valve disorder Meir Bone M.D., [facility], [facility] Active Note: mitral valave insufficiency Onset: 11/07/2014 Osteoporosis Zulay Kraus M.D. Active Onset: 11/07/2014 Scoliosis deformity of spine Zulay Kraus M.D. Active Onset: 02/19/2015 Tendinosis Zulay Kraus M.D. Active Note: rotatot cuff with AC joint OA Onset: 10/10/2015 Thoracic aortic ectasia Meir Bone M.D., [facility], [facility] Active Onset: 10/23/2015 Arachnoid cyst Zulay Kraus M.D. Active Note: L anterior fossa Onset: 12/18/2015 Disturbance in sleep behavior Yudi Louie MD Active Onset: 11/17/2016 Paroxysmal atrial fibrillation Meir Bone M.D., [facility], Active FSCAI Onset: 03/17/2011 Osteochondropathy Fern Jean M.D., FACP Inactive Inactive: 11/07/2014 Onset: 03/17/2011 Pure hypercholesterolemia Fern Jean M.D., FACP Inactive Inactive: 11/07/2014 Family History Date Family Member(s) Observation Comments General Heart Disease : (age 43 Years) Father due to GA Father due to Marfan's () Mother due to Stroke () : (age 42 Years) First Brother due to Accident First Sister 67 First Sister Chronic Obstructive Pulmonary Disease (COPD) Social History Type Date Description Comments Sex Unknown Marital Status Single Lives With Male Partner Occupation [employer] ETOH Use Rarely consumes alcohol Tobacco Use Start: Unknown Patient has never smoked Recreational Drug Use Negative For Denies Drug Use Smoking Status Reviewed: 03/03/19 Patient has never smoked Exercise Type/Frequency Exercises [...] 1/2 tab Arlen 18 s by mouth Fulton, twice a M.D. day Levothyroxine 10/20/20 Active Tablets 100mcg 90tab Take 1 E03.9 Zulay Sodium 17 s Tablet Kraus, By Mouth M.D. Daily Calcium 600 + D 02/05/20 Active Tablets 600-200mg 1 tab Zulay 16 -Unit bid Nayana, MJuan Potassium 10/23/20 Active Capsules 10Meq 360ca 2 tabs Arlen Chloride ER 15 ER ps by mouth Fulton, bid M.D. Xarelto 10/04/20 Active Tablets 20mg [...] M25.511 Henry 18 - s tab Jesse, HVAC R TECH 08/05/20 every 8 18 hours as needed for muscle spasm Tramadol HCL 07/29/20 Hx Tablets 50mg 10tab 1 tablet M25.511 Henry 18 - s every 12 Jesse, HVAC R TECH 08/03/20 hours as 18 needed for pain. Zostavax 10/20/20 Hx Suspension [id number]/ 1unit sc x1 Zulay 17 - Rec [...] B34.9 Zulay 15 - s tab for Nayana, Zeus stevens M.D. every 8 hours as needed Potassium 10/18/20 Hx Tablets ER 20Meq 2 tab Unknown Chloride ER 15 - daily 10/23/20 15 Malarone 06/13/20 Hx Tablets 250-100mg 30tab one by Francia 15 - s mouth Anisha, N.P. 07/13/20 daily 15 starting 1 - 2 days before arriving and continue for 7 days after leaving destinat ion Potassium 04/03/20 Hx Tablets ER 10Meq 180ta 1 tab by Zulay Chloride ER 15 - bs mouth Kraus, 10/22/20 twice a M.D. 15 day Metoprolol 12/14/19 Hx Tablets ER 25mg 135ta 1.5 Meir Succinate ER 15 - 24HR bs tablets Stefek, 08/26/20 by mouth M.D., 18 daily [facility] Alendronate 11/07/20 Hx Tablets 70mg 12tab [...] pharmacy 019 administered Inj, Administered Injection Edson Torie Regadenoson, 013 Brand, 0.1 MG M.D. Technetium TC Administered Injection Edson DJan 99M 013 Brand, Tetrofosmin, M.D. Per Unit Dose Up To 40 Millicuries Immunizations CPT Code Status Date Vaccine Lot # [id number] Given 10/09/2018 Influenza Virus Vaccine, Quadrivalent, Split, Preservative Free 18357 Given 07/19/2018 Zoster (Shingles) Vaccine (HZV), Recombinant, Subunit, Adjuvanted 66062 Given 07/19/2018 Zoster (Shingles) Vaccine (HZV), Recombinant, Subunit, Adjuvanted 88192 Given 10/20/2017 Influenza Virus Vaccine, Quadrivalent, Split, [id number] Preservative Free 63348 Given 11/26/2016 Influ Virus Vaccine, Quadrivalent, Split Virus, [place] [address] Given 2015 Influenza Virus Vaccine, Quadrivalent, Split, Preservative Free 72451 Given 10/17/2014 Tdap - Tetanus/Diptheria/Acellular Pertussis [id number] 53206 Given 10/17/2014 Flu Vaccine Split Virus Preservative Free For [id number] Indiv 3Yr Older 34655 Given 09/05/2013 Flu Vaccine Split Virus Preservative Free For [id number] Indiv 3Yr Older [id number] Given 09/01/2012 Fluzone Vaccine [id number] 09875 Given 01/30/2010 Influenza Virus Vaccine, Pandemic Formulation 20424 Given 01/30/2010 Administration Swine Flu Shot 95414 Given 01/05/2009 Influenza Virus 3Yrs & Over 37906 Given 11/24/2006 Influenza Virus 3Yrs & Over 76291 Given 11/24/2006 Influenza Virus 3Yrs & Over 63457 Given 2003 Td Toxoids Adsorbed For Use 7Yrs Or Older For Intramuscular Use Vital Signs Date Vital Result Comment 03/03/2019 2:42pm Height 70.5 inches 5'10.50" Weight [...] Result H/L Range Note Laboratory test 03/01/2019 [facility] TSH 5.64 mcIU/mL High 0.34-5.[address] ([place] [address] Stim Horm) [phone] T3 Free 2.80 pg/mL N 2.5-3.9 Free T4 (Free Thyroxine) 0.82 ng/dL N 0.61-1.12 Basic Metabolic Panel 03/01/2019 [facility] Sodium 135 mmol/L N 135-[address] [place] [address] [phone] Potassium 4.6 mmol/L N 3.5-5.0 Chloride 105 mmol/L N 101-111 Co2 Carbon Dioxide 27 mmol/L N 22-32 Anion Gap 3 mmol/L N 2-11 Glucose 100 mg/dL N 70-100 Blood Urea Nitrogen 10 mg/dL N 6-24 Creatinine 0.62 mg/dL N 0.51-0.95 BUN/Creatinine Ratio 16.1 N 8-20 Calcium 8.1 mg/dL Low 8.6-10.3 Egfr Non- 97.5 >60 Egfr 118.0 >60 1 Laboratory test 02/17/2019 [facility] TSH (Thyroid 8.89 High 0.34-5.[address] Stim Horm) mcIU/[place] [address] [phone] T3 Free 3.00 pg/mL N 2.5-3.9 Free T4 (Free Thyroxine) 1.12 ng/dL N 0.61-1.12 Urinalysis Profile 02/17/2019 [facility] Urine Color Straw [address] [place] [address] [phone] Urine Appearance Clear Urine Specific [place] 1.009 Low 1.010-1.030 Urine pH 7.0 N 5-9 Urine Urobilinogen Negative Negative Urine Ketones Negative Negative Urine Protein Negative Negative Urine Leukocytes Negative Negative Urine Blood Negative Negative * * Abnormal Negative 2 Urine Nitrite Negative Negative Urine Bilirubin Negative Negative Urine Glucose Negative Negative Comp Metabolic Panel 02/17/2019 [facility] Sodium 136 mmol/L N 135-145 [address] [place] [address] [phone] Potassium 4.7 mmol/L N 3.5-5.0 Chloride 103 [...] 120.3 >60 3 Basic Metabolic Panel 12/30/2018 [facility] Sodium 137 mmol/L N 135-145 [address] [place] [address] [phone] Potassium 4.9 mmol/L N 3.5-5.0 Chloride 103 mmol/L N 101-111 Co2 Carbon Dioxide 31 mmol/L N 22-32 Anion Gap 3 mmol/L N 2-11 Glucose 85 mg/dL N 70-100 Blood Urea Nitrogen 16 mg/dL N 6-24 Creatinine 0.63 mg/dL N 0.51-0.95 BUN/Creatinine Ratio 25.4 High 8-20 Calcium 9.2 mg/dL N 8.6-10.3 Egfr Non- 95.8 >60 Egfr 115.9 >60 4 Laboratory test 12/30/2018 [facility] Magnesium 2.0 mg/dL N 1.9-2.7 finding [address] [place] [address] [phone] Laboratory test 12/14/2018 [facility] Hemosure Negative finding Non-Medicare Basic Metabolic 10/29/2018 [facility] Sodium 139 mmol/L N 135- 145 Panel [address] [place] [address] [phone] Potassium 3.9 mmol/L N 3.5-5.0 Chloride 104 mmol/L N 101-111 Co2 Carbon Dioxide 27 mmol/L N 22-32 Anion Gap 8 mmol/L N 2-11 Calcium 9.2 mg/dL N 8.6-10.3 Glucose 72 mg/dL N 70-100 Blood Urea Nitrogen 16 mg/dL N 6-24 Creatinine 0.72 mg/dL N 0.51-0.95 BUN/Creatinine Ratio 22.2 High 8-20 Egfr Non- 82.1 >60 Egfr 99.3 >60 5 Laboratory test 10/29/2018 [facility] Magnesium 1.8 mg/dL Low 1.9-2.7 6 finding [address] [place] [address] [phone] Basic Metabolic 10/13/2018 [facility] Sodium 138 mmol/L N 135- 145 Panel [address] [place] [address] [phone] Potassium 3.8 mmol/L N 3.5-5.0 Chloride 108 mmol/L N 101-111 Co2 Carbon Dioxide 26 mmol/L N 22-32 Anion Gap 4 mmol/L N 2-11 Glucose 93 mg/dL N 70-100 Blood Urea Nitrogen 14 mg/dL N 6-24 Creatinine 0.57 mg/dL N 0.51-0.95 BUN/Creatinine Ratio 24.6 High 8-20 Calcium 8.8 mg/dL N 8.6-10.3 Egfr Non- 107.5 >60 Egfr 130.0 >60 7 Laboratory test 10/13/2018 [facility] Magnesium 1.8 mg/dL Low 1.9-2.7 finding [address] [place] [address] [phone] Laboratory test 10/01/2018 [facility] Magnesium <pending> finding [address] [place] [address] [phone] CBC Auto Diff 08/18/2018 [facility] White Blood 5.9 N 3.5- 10.[address] Count 10^3/[place] [address] [phone] Red Blood Count 4.83 10^6/uL N 4.00-5.40 [...] Red Blood Cells % 0.1 Inr/Protime 08/18/2018 [facility] Inr 2.23 High 0.77-1.[address] [place] [address] [phone] Laboratory test 08/18/2018 [facility] Partial 45.5 High 26.0- 36.[address] [address] Time PTT [phone] D Dimer Quantitative < 200 ng/mL N Less Than 230 8 B-Type Natriuretic Peptide BNP 571 pg/mL High 9 Lactic Acid 0.8 mmol/L N 0.5-2.0 10 Comp Metabolic Panel 08/18/2018 [facility] Sodium 134 mmol/L Low 135-[address] [place] [address] [phone] Potassium 4.5 mmol/L N 3.5-5.0 Chloride 102 [...] Egfr 72.4 >60 11 Laboratory test 08/18/2018 [facility] Magnesium 2.2 mg/dL N 1.9-2.7 finding [address] [place] [address] [phone] Creatine Kinase(CK) 44 U/L N 10-223 Troponin-I (TnI) 0.00 ng/mL <0.04 CKMB 08/18/2018 [facility] CKMB ng/mL 1.8 ng/mL N 0.6-6.[address] [place] [phone] Laboratory test 08/18/2018 [facility] TSH (Thyroid 4.47 N 0.34 -5.[address] [place] [address] Stim Horm) mcIU/[place] [address] [phone] Laboratory test 08/09/2018 [facility] Magnesium 2.0 mg/dL N 1.9-2.[address] [place] [address] [phone] Comp Metabolic 08/09/2018 [facility] Sodium 137 mmol/L N 135- [address] [place] [address] [phone] Potassium 4.3 mmol/L N 3.5-5.0 Chloride 105 [...] Egfr 54.2 >60 12 Laboratory test 08/09/2018 [facility] Lactic Acid 0.6 mmol/L N 0.5-2.0 [address] [place] [address] [phone] Troponin-I (TnI) 0.01 ng/mL <0.04 CBC Auto Diff 08/09/2018 [facility] White Blood 5.0 10^3/uL N 3.5-10.[address] [place] [address] [phone] Red Blood Count 4.44 10^6/uL N 4.00-5.40 [...] Blood Cells % 0.1 Laboratory test 08/09/2018 [facility] Troponin-I 0.00 ng/mL < 0.[address] (TnI) [place] [address] [phone] Laboratory test 02/04/2018 [facility] TSH (Thyroid 2.13 N 0.34 -5.[address] Stim Horm) mcIU/[place] [address] [phone] Free T4 (Free Thyroxine) 0.93 ng/dL N 0.61-1.12 T3 Free 3.10 pg/mL N 2.5-3.9 Laboratory test 01/08/2018 [facility] Troponin-I 0.00 ng/mL < 0.[address] (TnI) [place] [address] [phone] CBC Auto Diff 01/08/2018 [facility] White Blood 7.3 N 3.5- 10.[address] Count 10^3/[place] [address] [phone] Red Blood Count 4.72 10^6/uL N 4.0-5.4 [...] Red Blood Cells % 0 Inr/Protime 01/08/2018 [facility] Inr 2.10 High 0.77-1.[address] [place], [place] [address] [phone] Laboratory test 01/08/2018 [facility] Partial 46.4 High 26.0- 36.[address] [address] Time PTT [phone] Lactic Acid 0.9 mmol/L N 0.5-2.0 14 B-Type Natriuretic Peptide BNP 354 pg/mL High 15 Comp Metabolic Panel 01/08/2018 [facility] Sodium 133 mmol/L N 133-[address] [place] [address] [phone] Potassium 4.2 mmol/L N 3.5-5.0 Chloride 101 [...] Egfr 84.0 >60 16 Laboratory test 01/08/2018 [facility] Magnesium 1.9 mg/dL N 1.9-2.[address] [place] [address] [phone] Creatine Kinase(CK) 46 U/L N 10-223 Troponin-I (TnI) 0.00 ng/mL <0.04 CKMB 01/08/2018 [facility] CKMB ng/mL 1.8 ng/mL N 0.6-6.3 [place] [address] [phone] Laboratory test 01/08/2018 [facility] TSH 2.84 N 0.34-5.[address] (Thyroid mcIU/[place] [address] Stim Horm) [phone] Laboratory test 11/20/2017 [facility] TSH 1.54 N 0.34-5.[address] (Thyroid mcIU/[place] [address] Stim Horm) [phone] T3 Free 3.50 pg/mL N 2.5-3.9 Free T4 (Free Thyroxine) 1.19 ng/dL High 0.61-1.12 Laboratory test 11/17/2017 [facility] Blood Urea 15 mg/dL N 6- 24 finding Nitrogen BUN [place], [place] [id number] [phone] Creatinine 11/17/2017 [facility] Creatinine 0.82 mg/dL N 0.51- 0.[address] [place], [place] [address] [phone] Egfr Non- 70.9 >60 Egfr 91.1 >60 17 Laboratory test 10/13/2017 [facility] TSH (Thyroid 7.01 High 0.34-5.[address] Stim Horm) mcIU/mL [place], [place] [address] [phone] Free T4 (Free Thyroxine) 1.03 ng/dL N 0.61-1.12 Laboratory test 10/13/2017 [facility] Troponin-I (TnI) 0.00 ng/ mL <0.[address] [place] [address] [phone] Magnesium 2.0 mg/dL N 1.9-2.7 D Dimer Quantitative < 200 ng/mL N Less Than 230 18 Comp Metabolic Panel 10/13/2017 [facility] Sodium 135 mmol/L N 133-145 [place] [address] [phone] Potassium 4.3 mmol/L N 3.5-5.0 Chloride 103 [...] Egfr 80.8 >60 19 Laboratory test 10/13/2017 [facility] Lactic Acid 1.0 mmol/L N 0.5-2.0 [address] [place] [address] [phone] CBC Auto Diff 10/13/2017 [facility] White Blood 7.4 10^3/uL N 3.5-10.[address] [place] [address] [phone] Red Blood Count 4.67 10^6/uL N 4.0-5.4 [...] Blood Cells % 0 Laboratory test 10/13/2017 [facility] Troponin-I (TnI) 0.01 ng/ mL <0.[address] [place] [address] [phone] Basic Metabolic 06/10/2017 [facility] Sodium 137 mmol/L N 133- [address] [place] [address] [phone] Potassium 4.1 mmol/L N 3.5-5.0 Chloride 105 mmol/L N 101-111 Co2 Carbon Dioxide 27 mmol/L N 22-32 Anion Gap 5 mmol/L N 2-11 Glucose 88 mg/dL N 70-100 Blood Urea Nitrogen 12 mg/dL N 6-24 Creatinine 0.69 mg/dL N 0.51-0.95 BUN/Creatinine Ratio 17.4 N 8-20 Calcium 9.2 mg/dL N 8.6-10.3 Egfr Non- 86.8 N >60 Egfr 111.6 N >60 21 Laboratory test 06/10/2017 [facility] Magnesium 1.8 mg/dL Low 1.9-2.[address] [place] [address] [phone] Lipid Profile 06/10/2017 [facility] Triglycerides 104 mg/dL N 22 (Trig/Chol/HDL) [address] [place] [address] [phone] Cholesterol 182 mg/dL N 23 HDL Cholesterol 42.5 mg/dL N 24 LDL Cholesterol 119 mg/dL N 25 Laboratory test 05/27/2017 [facility] Cytology SEE RESULT [address] [place] [address] [phone] Laboratory test 02/02/2017 [facility] TSH (Thyroid 2.01 mcIU/mL N 0.34-[address] Stim Horm) .60 [place] [address] [phone] T3 Free 3.40 pg/mL N 2.5-3.9 Free T4 (Free Thyroxine) 0.94 ng/dL N 0.61-1.12 Ua Routine 08/21/2016 [facility] Ua Specific [place] 1.010 Ua PH 5 Ua Color yellow Ua Appera clear Ua WBC neg Ua Protein neg Ua Glucose normal Ua Ketones neg Ua Bilirubin neg Ua Urobilinogen normal Ua Nitrite neg Ua Occult Blood about 250 Basic Metabolic Panel 08/21/2016 [facility] Sodium 135 mmol/L N 133-[address] [place] [address] [phone] Potassium 4.3 mmol/L N 3.5-5.0 Chloride 99 [...] N >60 27 CBC Auto Diff 08/21/2016 [facility] White Blood 10.4 10^3/uL N 3.5-10.[address] [place] [address] [phone] Red Blood Count 4.49 10^6/uL N 4.0-5.4 [...] Cells % 0 N Laboratory test 08/21/2016 [facility] Cytology SEE RESULT [address] Non-Registered [place] [address] [phone] Urine Culture And 08/21/2016 [facility] Urine Culture SEE RESULT [address] [place] [address] [phone] Laboratory test 08/21/2016 [facility] Blood Culture SEE RESULT [address] [place] [address] [phone] Urinalysis Profile 08/21/2016 [facility] Urine Color Colorless N [address] [place] [address] [phone] Urine Appearance Clear N Urine Specific [place] 1.014 N 1.010-1.030 Urine pH 7.0 N [...] Absent N Absent Laboratory test finding 08/21/2016 [facility] Lipase 36 U/L N 11.0-82.[address] [place] [address] [phone] C Reactive Protein 78.75 mg/L High < 5.00 31 Comp Metabolic Panel 08/21/2016 [facility] Sodium 134 mmol/L N 133-[address] [place] [address] [phone] Potassium 3.9 mmol/L N 3.5-5.0 Chloride 99 [...] 120.0 N >60 32 Laboratory test 08/21/2016 [facility] Partial 33.9 seconds N 26.0-36.[address] [place] [address] PTT [phone] Lactic Acid 0.8 mmol/L N 0.5-2.0 33 Inr/Protime 08/21/2016 [facility] Inr 1.21 High 0.89-1.[address] [place] [address] [phone] CBC Auto Diff 08/21/2016 [facility] White Blood 9.8 N 3.5- 10.[address] Count 10^3/uL [place], [place] [address] [phone] Red Blood Count 4.34 10^6/uL N 4.0-5.4 [...] Blood Cells % 0 N Laboratory 02/05/2016 [facility] Magnesium 1.9 mg/dL N 1.9- 2.7 test finding [address] [place] [address] [phone] Laboratory 02/05/2016 [facility] Hepatitis C Nonreactive N Nonreactive test finding [address] [facility] [place] [place] [address] [phone] Basic 02/05/2016 [facility] Sodium 136 mmol/L N 133-145 Metabolic [address] [facility] [place] [place] [address] [phone] Potassium 4.3 mmol/L N 3.5-5.0 Chloride 102 [...] N >60 34 Basic Metabolic Panel 11/16/2015 [facility] Sodium 136 mmol/L N 133-145 [address] [place] [address] [phone] Potassium 4.7 mmol/L N 3.5-5.0 Chloride 102 mmol/L N 101-111 Co2 Carbon Dioxide 29 mmol/L N 22-32 Anion Gap 5 mmol/L N 2-11 Glucose 82 mg/dL N 70-100 Blood Urea Nitrogen 16 mg/dL N 6-24 Creatinine 0.66 mg/dL N 0.51-0.95 BUN/Creatinine Ratio 24.2 High 8-20 Calcium 9.4 mg/dL N 8.6-10.3 Egfr Non- 91.7 N >60 Egfr 117.9 N >60 35 Laboratory test 11/16/2015 [facility] Magnesium 1.8 mg/dL Low 1.9-2.7 finding [address] [place] [address] [phone] Digoxin 0.5 ng/ml Low 0.8-2.0 Comp Metabolic Panel 10/22/2015 [facility] Sodium 133 mmol/L N 133-145 [address] [place] [address] [phone] Potassium 4.1 mmol/L N 3.5-5.0 Chloride 97 [...] 110.1 N >60 36 Laboratory test 10/22/2015 [facility] Magnesium 1.8 mg/dL Low 1.9-2.7 finding [address] [place] [address] [phone] Coxsackie A 10/22/2015 [facility] Coxsackie <1:8 N [address] [facility] [place] [address] A(2) Ab [phone] Coxsackie Virus Type A(4) Ab <1:8 N [place] Virus Type A(7) Ab <1:8 N [place] Virus Type A(9) AB <1:8 N [place] Virus Type A(10) Ab <1:8 N [place] Virus Type A(16) Ab <1:8 N 37 Harrison Lux 10/22/2015 [facility] Ebv Capsid Positive N Negative Comprehensive [address] [facility] [place] [address] [phone] Ebv Capsid Ag IgM Ab Negative N Negative Harrison-Lux Nuclear Antigen Positive N Negative Harrison-Lux Virus Interp See Comment N 38 Laboratory test 10/22/2015 [facility] Digoxin 0.8 ng/ml N 0.8- 2.0 finding [address] [place] [address] [phone] CBC Auto Diff 10/18/2015 [facility] White Blood 6.3 10^3/uL N 4.8-10.[address] [place] [address] [phone] Red Blood Count 4.95 10^6/uL N 4.0-5.4 [...] Cells % 0 N Laboratory test 10/18/2015 [facility] Lactic Acid 0.8 mmol/L N 0.5-2.2 finding [address] [place] [address] [phone] Comp Metabolic 10/18/2015 [facility] Sodium 135 mmol/L N 133- 145 Panel [address] [place] [address] [phone] Potassium 3.6 mmol/L N 3.5-5.0 Chloride 103 [...] 115.9 N >60 39 Laboratory test 10/18/2015 [facility] Magnesium 1.8 mg/dL Low 1.9-2.7 finding [address] [place] [address] [phone] Troponin-I (TnI) 0.00 ng/mL N <0.03 40 TSH (Thyroid Stim Horm) 1.39 ?IU/mL N 0.34-5.60 Basic Metabolic Panel 12/17/2014 [facility] Sodium 134 mmol/L N 133-145 [address] [place] [address] [phone] Potassium 4.1 mmol/L N 3.5-5.0 Chloride 103 [...] N >60 41 Basic Metabolic Panel 12/16/2014 [facility] Sodium 134 mmol/L N 133-145 [address] [place] [address] [phone] Potassium 4.1 mmol/L N 3.5-5.0 Chloride 103 mmol/L N 101-111 Co2 Carbon Dioxide 30 mmol/L N 22-32 Anion Gap 1 mmol/L Low 2-11 Glucose 72 mg/dL N 70-100 Blood Urea Nitrogen 17 mg/dL N 6-24 Creatinine 0.76 mg/dL N 0.51-0.95 BUN/Creatinine Ratio 22.4 High 8-20 Calcium 9.1 mg/dL N 8.6-10.3 Egfr Non- 78.2 N >60 Egfr 100.5 N >60 42 Pthi 11/13/2014 [facility] PTH Intact 3.4 pmol/L N 1.3-9.[address] [place] [address] [phone] Calcium (PTH Intact) 9.0 mg/dL N 8.6-10.3 Vitamin D, 25 11/13/2014 [facility] 25-Hydroxy Vitamin 4.5 ng/ mL N Hydroxy [address] D2 [place] [address] [phone] 25-Hydroxy Vitamin D3 32 ng/mL N 25-Hydroxy Vitamin D Total 37 ng/mL N 43 Laboratory test 11/13/2014 [facility] TSH (Thyroid 1.75 IU/mL N 0.34-5.[address] [place] [address] Horm) [phone] Free T3 2.80 pg/mL N 2.5-3.9 Free T4 0.93 ng/mL N 0.61-1.12 Basic Metabolic 10/20/2014 [facility] Sodium 130 mmol/L Low 133-[address] [place] [address] [phone] Potassium 3.9 mmol/L N 3.5-5.0 44 Chloride [...] 114.3 N >60 45 CBC Auto 10/20/2014 [facility] White Blood 4.6 10^3/uL Low 4.8 -10.[address] [place] [address] [phone] Red Blood Count 4.24 10^6/uL N 4.0-5.4 [...] Cells % 0.1 N Laboratory test 10/20/2014 [facility] Rapid Influenza (SEE NOTE ) [address] [place] [address] [phone] Laboratory test 10/17/2014 [facility] Cytology RUN DATE: [address] 10/18/ <[place] [address] NOTE> [phone] Human Papilloma Virus Rna Negative N Negative 48 Laboratory test 10/13/2014 [facility] TSH (Thyroid 4.13 IU/mL N 0.34-5.[address] [place] [address] Horm) [phone] Free T3 2.60 pg/mL N 2.5-3.9 Free T4 0.94 ng/mL N 0.61-1.12 CBC Auto Diff 09/29/2014 [facility] White Blood 9.4 10^3/uL N 4.8-10.[address] [place] [address] [phone] Red Blood Count 4.55 10^6/uL N 4.0-5.4 [...] % 0.1 N Comp Metabolic Panel 09/29/2014 [facility] Sodium 138 mmol/L N 133-[address] [place] [address] [phone] Potassium 4.1 mmol/L N 3.7-5.6 Chloride 103 [...] 90.8 N >60 49 Laboratory test 09/29/2014 [facility] Magnesium 1.9 mg/dL N 1.9-2.7 finding [address] [place], [place] [address] [phone] Troponin I 0.00 ng/mL N <0.03 50 TSH (Thyroid Stimulating Horm) 6.43 IU/mL High 0.34-5.60 Laboratory 11/01/2013 [facility] TSH (Thyroid 6.00 High 0.34- 5.60 test finding 101 [facility] Stimulating miu/[place] [address] Horm) [phone] Free T4 0.84 ng/mL 0.61-1.24 Lipid Profile 11/01/2013 [facility] Triglycerides 98 mg/dL 40 -200 (Trig/Chol/HDL) [address] [place], [place] [id number] [phone] Cholesterol 208 mg/dL High Less than 200 HDL Cholesterol 64 mg/dL High 40-60 51 Cholesterol/HDL Ratio 3.3 Average 1-4.44 LDL Cholesterol 124.4 High Less Than 100 52 Comp Metabolic Panel 11/01/2013 [facility] Sodium 137 mmol/L 133-145 [address] [place] [address] [phone] Potassium 4.3 mmol/L 3.5-5.0 Chloride 102 mmol/L [...] Egfr 110.9 >60 53 Laboratory test 11/01/2013 [facility] CRP High 0.8 mg/L [address] [place] [address] [phone] Laboratory test 09/05/2013 [facility] Cytology RUN DATE: [address] 09/06/ [place] [address] <SEE [phone] NOTE> Laboratory test 06/23/2013 [facility] Inr 0.86 Low 0.87- finding [address] 0.97 [place] [address] [phone] Activated Partial Thrombo Time 30.7 seconds 22.18-37.18 Comp Metabolic Panel 06/23/2013 [facility] Sodium 136 mmol/L 133-[address] [place] [address] [phone] Potassium 4.3 mmol/L 3.5-5.0 Chloride 101 mmol/L [...] Egfr 95.4 >60 56 Laboratory test 06/23/2013 [facility] Magnesium 2.1 mg/dL 1.7 -2.[address] [place] [address] [phone] Creatine Kinase 60 U/L 0-200 CKMB 06/23/2013 [facility] CKMB ng/mL 2.5 ng/mL 0.3-4.[address] [place] [address] [phone] Laboratory test 06/23/2013 [facility] Troponin I 0.03 ng/mL 0 -0.06 [address] [place] [address] [phone] TSH (Thyroid Stimulating Horm) 5.87 miu/mL High 0.34-5.60 C Reactive Protein 0.5 mg/dL Less than 0.5 CBC Auto Diff 06/23/2013 [facility] White Blood 7.1 10^3/uL 4.8-10.[address] [place] [address] [phone] Red Blood Count 4.44 10^6/uL 4.0-5.4 Hemoglobin [...] Blood Cells % 0 Laboratory test 06/23/2013 [facility] Erythrocyte Sed 11 mm/Hr 0-[address] [place] [address] [phone] Laboratory test 06/01/2013 [facility] Lyme Disease Positive Negative [address] [place] [address] [phone] Lyme Western 06/01/2013 [facility] Lyme Disease IgG Negative Negative Blot [address] [place] [address] [phone] Lyme Disease IgG Bands Present p41, kDa Lyme Disease IgM Ab WB Positive Negative Lyme Disease IgM Bands Present p41, p23, kDa Lyme Disease Interpretation See Comment 60 Laboratory test 09/09/2012 [facility] CRP High 1.1 mg/L [address] [place] [address] [phone] Vitamin D, 25 09/09/2012 [facility] 25-Hydroxy Vitamin 6.3 ng/ mL Hydroxy [address] D2 [place] [address] [phone] 25-Hydroxy Vitamin D3 25 ng/mL 25-Hydroxy Vitamin D Total 31 ng/mL 62 Comp Metabolic Panel 09/09/2012 [facility] Sodium 137 mmol/L 133-[address] [place] [address] [phone] Potassium 4.5 mmol/L 3.5-5.0 Chloride 106 mmol/L [...] Egfr 111.3 >60 64 Lipid Profile 09/09/2012 [facility] Triglycerides 62 mg/dL 40 -200 (Trig/Chol/HDL) [address] [place] [address] [phone] Cholesterol 170 mg/dL Less than 200 65 HDL Cholesterol 57 mg/dL 40-60 66 Cholesterol/HDL Ratio 3.0 AVERAGE 1-4.44 LDL Cholesterol 100.6 mg/dL High Less Than 100 Laboratory test 09/09/2012 [facility] TSH (Thyroid 5.50 0.34- 5.[address] Stimulating MIU/[place] [address] Horm) [phone] Free T4 0.77 NG/ML 0.61-1.24 68 Laboratory test 09/01/2012 [facility] Cytology RUN DATE: [address] 09/02/ <[place] [address] NOTE> [phone] Ua Routine 09/01/2012 [facility] Ua Specific 1.005 [place] Ua PH 7 Ua Color pale yellow Ua Appera clear Ua WBC neg Ua Protein neg Ua Glucose neg Ua Ketones neg Ua Bilirubin neg Ua Urobilinogen neg Ua Nitrite neg Ua Occult Blood Non hem trace Laboratory test 06/15/2012 [facility] Calcium 9.3 mg/dL 8.1- 9.[address] [place] [address] [phone] Basic Metabolic Panel 06/15/2012 [facility] Sodium 137 mmol/L 135-[address] [place], [place] [address] [phone] Potassium 4.3 mmol/L 3.5-5.0 Chloride 103 mmol/L 101-111 Co2 (Carbon Dioxide) 28.0 mmol/L 22-32 Anion Gap 6.0 mmol/L 2-11 70 Glucose 95 mg/dL 70-100 BUN 16 mg/dL 6-24 Creatinine 0.7 mg/dL 0.50-1.40 One Over Creatinine 1.42 BUN/Creatinine Ratio 22.9 High 8-20 eGFR Non- 86.9 > 60 eGFR 111.7 > 60 71 Laboratory test 06/15/2012 [facility] TSH 5.43 MIU/ML 0.34- 5.[address] [place] [address] [phone] Magnesium 2.1 mg/dL 1.7-2.6 Laboratory test 06/10/2011 [facility] TSH 4.68 MIU/ML 0.34- 5.[address] [place] [address] [phone] Thyroxine Free 0.86 ng/dL 0.61-1.24 Laboratory test 06/10/2011 [facility] Cytology <SEE [address] NOTE> [facility] [phone] 1 Because ethnic data is not always [...] pg/mL: likely moderate to severe CHF 10 [facility] Severe Sepsis and Septic Shock Management [...] 5 Kidney failure <15 (or dialysis) 13 [facility] Severe Sepsis and Septic Shock Management Bundle Measure requires all lactic acids initially measuring >2.0 mmol/L be repeated. 14 [facility] Severe Sepsis and Septic Shock Management [...] 5 Kidney failure <15 (or dialysis) 20 [facility] Severe Sepsis and Septic Shock Management [...] [address]: Zulay Kraus MD Acct: [id number] Unit: [id number] AGE: 61 Location: [facility] Re05/27/17 SEX: F Status: REG REF SPEC: [id number] CHRIS: 05/27/17-[address] [facility] [address]: Zulay Kraus MD REQ: [id number] RECD: 05/27/17494 STATUS: SOUT _ ORDERED: TP IMAGE ANAL, HPV 16/18 GENE COMMENTS: [id number] FINAL DIAGNOSIS Negative for Intraepithelial lesion or [...] Signed (signature on file) DESTIN Hu(ASCP) 05/28 7409 This Pap test was evaluated with the assistance of the ThinPrep Test Imaging System. Due to cytologic findings at the manager relocation microscope, comprehensive manual rescreening by a Corrugator Supervisor may be required. The Pap Smear [...] performed at Main Lab DEPARTMENT OF PATHOLOGY, [address] [place] [address] Uziel South M.D. Director [facility] # [id number] 27 Because ethnic data is not always [...] MOORE : [address]: Gorge Gipson HVAC R TECH Acct: [id number] Unit: [id number] AGE: 60 Location: [facility] Re08/21/16 SEX: F Status: REG REF SPEC: [id number] CHRIS: 08/21/16-[address]: Gorge Gipson HVAC R TECH REQ: [id number] RECD: 08/21/16 STATUS: SOUT _ ORDERED: THIN PREP NON G COMMENTS: [id number] FINAL DIAGNOSIS Urine, voided: --Negative for malignant cells. URINE VOID GROSS DESCRIPTION 7.5 mls of clear pale yellow voided urine. Signed (signature on file) Gisela Ortega MD 0680 END OF REPORT * ML=Testing performed at Main Lab DEPARTMENT OF PATHOLOGY, [address] [place] [address] Uziel South M.D. Director [facility] # [id number] 29 SEE RESULT BELOW Name: TERESASUECARRIE Roshan : [address]: Gorge Gipson NP Acct: [id number] Unit: [id number] AGE: 60 Location: [facility] Re08/21/16 SEX: F Status: REG REF SPEC: [id number] CHRIS: 08/21/16-[address]: Gorge Gipson NP REQ: [id number] RECD: 08/21/16 STATUS: COMP _ SOURCE: URINE SPDESC: ORDERED: Urine Culture COMMENTS: [id number] Procedure Result Reported Site Urine Culture Final 08/22/16- 1607 ML No Growth (<1,000 CFU/mL) * ML - MAIN LAB ([facility]) . END OF REPORT * ML=Testing performed at Main Lab DEPARTMENT OF PATHOLOGY, [address] [place] [address] Uziel South M.D. Director [facility] # [id number] 30 SEE RESULT BELOW Name: CARRIE MOORE : [address]: Darian Agosto MD Acct: [id number] Unit: [id number] AGE: 60 Location: [place] [address] Re08/21/16 Dis: 08/25/16 SEX: F Status: DIS IN SPEC: [id number] CHRIS: 08/21/16 [facility] DR: Dick Rice MD REQ: [id number] RECD: 08/21/16 STATUS: JOSTIN COBURN DR: Zulay Kraus MD _ SOURCE: BLOOD,VENO SPDESC: ORDERED: Blood Cult Procedure Result Reported Site Aerobic Culture Bottle Final 08/26/16- 0 ML No Growth Day 5 Anaerobic Culture Bottle Final 08/26/16- 1939 ML No Growth Day 5 * ML - MAIN LAB ([facility]) . END OF REPORT * ML=Testing performed at Main Lab DEPARTMENT OF PATHOLOGY, [address] [place] [address] Uziel South M.D. Director [facility] # [id number] 31 Acute inflammation: >10.00 32 Because ethnic [...] 5 Kidney failure <15 (or dialysis) 33 [facility] Severe Sepsis and Septic Shock Management [...] its performance characteristics have been determined by [employer]. Performance characteristics refer to the analytical performance of the test. Test Performed by: [employer], [employer] [address] [place] [address] 38 RESULT: Results suggest past infection. ADDITIONAL [...] infection with EBV. Test Performed by: [address] [address] Assistant Media Buyer: Yariel Alonso II, M.D., Ph.D. 39 Because [...] 0.03 ng/mL Not supportive of diagnosis of GA 0.03 - 0.50 ng/mL Indeterminate: suggest serial studies if clinically indicated. Greater than 0.5 ng/mL Consistent with diagnosis of GA 41 Because ethnic data is not always [...] levels within this range. Test Performed by: [facility] [address] [address] Assistant Media Buyer: Nba Park M.D. 44 Potassium reference range [...] <15 (or dialysis) 46 RUN DATE: 10/21/14 [facility] LAB LIVE PAGE 1 RUN TIME: [address] [place] [address] Specimen Inquiry Name: CARRIE MOORE : [address]: Surya De Guzman MD Acct: [id number] Unit: [id number] AGE: 59 Location: [facility] Re10/20/14 SEX: F Status: DEP ER SPEC: [id number] CHRIS: 10/20/14-1844 [facility] [address]: Surya De Guzman MD REQ: [id number] RECD: 10/21/14-1216 STATUS: COMP [facility] DR: Zulay Kraus MD _ SOURCE: ZOË SPDESC: ORDERED: Rapid Flu A B COMMENTS: Verbal to [id number] ([facility]) by [id number] at 1445 on 10/21/14. Results read back accurately. QUERIES: [employer] Number [id number] Procedure Result Verified Site Rapid Influenza A [...] performed at Main Lab DEPARTMENT OF PATHOLOGY, [facility] [employer] [place], [place] [address] Uziel South M.D. Director [facility] # [id number] 47 RUN DATE: 10/18/14 [facility] LAB LIVE PAGE 1 RUN TIME: 6762 [facility] [address] [place], [place] [address] Specimen Inquiry Name: CARRIE MOORE : [address]: Zulay Kraus MD Acct: [id number] Unit: [id number] AGE: 59 Location: [facility] Re10/17/14 SEX: F Status: REG REF SPEC: [id number] CHRIS: 10/17/14-1010 [facility] DR: Zulay Kraus MD REQ: [id number] RECD: 10/17/14 STATUS: SOUT _ ORDERED: IMAGE [...] once. Signed (signature on file) Alaina Scanlon [place] (ASCP) 10/18/14 1351 This Pap test was evaluated with the assistance of the [place] [employer] MagazinePrep Test Imaging System. Due to cytologic findings at the manager relocation microscope, comprehensive manual rescreening by a Corrugator Supervisor may be required. The Pap Smear [...] performed at Main Lab DEPARTMENT OF PATHOLOGY, [address] [place] [address] Uziel South M.D. Director [facility] # [id number] 48 The high-risk HPV types detected by [...] 0.03 ng/mL Not supportive of diagnosis of GA 0.03 - 0.50 ng/mL Indeterminate: suggest serial studies if clinically indicated. Greater than 0.5 ng/mL Consistent with diagnosis of GA 51 HDL Interpretation: Undesirable: High Risk: Less [...] (Approximately 2-Fold Increase) 55 RUN DATE: 09/06/13 [facility] LAB LIVE PAGE 1 RUN TIME: 1152 [address] [place], [place] [address] Specimen Inquiry Name: CARRIE MOORE : [address]: Fern Jean MD Acct: [id number] Unit: [id number] AGE: 57 Location: [facility] Re09/05/13 SEX: F Status: REG REF SPEC: [id number] CHRIS: 09/05/13-[address]: Fern Jean MD REQ: [id number] RECD: 09/05/13-9141 STATUS: SOUT _ ORDERED: IMAGE ANALYSIS FINAL [...] yrs ago Signed (signature on file) Alaina DESTIN Scanlon (ASCP) 09/06/13 1152 This Pap test was evaluated with the assistance of the [place] [employer] MagazinePrep Test Imaging System. Due to cytologic findings at the manager relocation microscope, comprehensive manual rescreening by a Corrugator Supervisor may be required. The Pap Smear [...] performed at Main Lab DEPARTMENT OF PATHOLOGY, [address] [place] [address] Uziel oSuth M.D. Director [facility] Permit #[id number] 56 Because ethnic data is not always [...] 0.06 ng/mL Not supportive of diagnosis of GA 0.06 - 0.50 ng/mL Indeterminate: suggest serial studies if clinically indicated. Greater than 0.5 ng/mL Consistent with diagnosis of GA 59 Not diagnostic. Supplemental testing ordered by reflex. Test Performed by: [place] [address] Assistant Media Buyer: Louie Burkett III, M.D. 60 Consistent with [...] screening test (e.g., EIA). Test Performed by: [place] [id number] Assistant Media Buyer: Louie Burkett III, M.D. 61 Less Than 1.0......Low Risk of Cardiovascular Disease 1.0-3.0............Medium Risk (<2 Fold Increase) Greater Than 3.0...High Risk (Approximately 2-Fold Increase) 62 -- REFERENCE VALUE -- 25-HYDROXY D TOTAL (D2+D3) Optimum levels in the normal population are 25-80 Test Performed by: [facility] [address] [address] Assistant Media Buyer: Louie Burkett III, M.D. R 63 A metabolite of Naproxen, O-desmethylnaproxen, has been shown to interfere with the Jendrassik-Macomb method for measuring total bilirubin. Samples from [...] FASTING 68 FASTING 69 RUN DATE: 09/02/12 [facility] LAB LIVE PAGE 1 RUN TIME: 7224 [address] [place], [place] [address] Specimen Inquiry Name: CARRIE MOORE : [address]: Fern Jean MD Acct: [id number] Unit: [id number] AGE: 56 Location: [facility] Re09/01/12 SEX: F Status: REG REF SPEC : [id number] RECD: 09/02/12 STATUS: ELBA HARPER NUM: [id number] CHRIS: 09/01/[address]: Fern Jean MD [...] (signature on file) DESTIN Ledesma (ASCP) 09/02 9456 This Pap test was evaluated with the assistance of the Wundrbar Test Imaging System. Due to cytologic findings at the manager relocation microscope, comprehensive manual rescreening by a Corrugator Supervisor may be required. The Pap Smear [...] performed at Main Lab DEPARTMENT OF PATHOLOGY, [address] [place] [address] Uziel South M.D. Director [facility] Permit #[id number] 70 Anion gap measurement may be of [...] (or dialysis) 72 ---- RUN DATE: 06/11/11 [facility] NMI LIVE PAGE 1 RUN TIME: 0506 Specimen Inquiry RUN USER: INTERFACE -- Name: CARRIE MOORE Status: REG REF Re06/10/11 Age/Sex: 55/F Unit#: [id number] Location: [facility] : 57 -- Specimen: [id number] SOUT Spec Date: 06/10/[address] [facility] [address]: Fern Jean MD Spec Type: [...] years. Initial evaluation performed by Roshan JURADO CT([facility]) 06/11/11 Final Interpretation electronically signed by: Roshan JURADO CT([facility]) 06/11/11 1456 -- DEPARTMENT OF PATHOLOGY, [address] [place] [address] [facility] Permit #[id number] Uziel South M.D. Director Ally Hooks M.D. Radiosonde Specialist Dir sam -- Procedures Date Code Description Status 03/03/2019 72928 EKG Tracing & Interpretation Completed 02/10/2019 77643 ECHO Transthoracic, Real-Time 2D With Doppler And Completed Color Flow 02/10/2019 05097 ECHO Transthoracic, Real-Time 2D With Doppler And Completed Color Flow 01/25/2019 06468 EKG Tracing & Interpretation Completed 10/13/2018 57718 EKG, Interpretation Only Completed 10/13/2018 00267 Cardioversion Completed 10/01/2018 28382 EKG Tracing & Interpretation Completed 09/14/2018 19018 Moderate Sedation Services; Same Phys Intl 15 Mins; PT Completed >=5 Years 09/14/2018 63364 Cardioversion Completed 09/13/2018 80993 EKG Tracing & Interpretation Completed 09/13/2018 91244 EKG Tracing & Interpretation Completed 09/06/2018 75606 Holter Monitor Review (24 hr)dr review & interp only Completed 08/27/2018 73938 ECG Monitor/Recording W/Visual Superimposition Completed Scanning 08/27/2018 76143 EKG Tracing & Interpretation Completed 08/19/2018 11292 EKG, Interpretation Only Completed 08/19/2018 09213 Cardioversion Completed 08/10/2018 39977 EKG, Interpretation Only Completed 08/10/2018 83358 Cardioversion Completed 03/08/2018 97596218 Mammogram Completed 02/12/2018 27481 Echocardiography, Transesophageal, Real Time W/Image Completed 2D W/W/O M-M 02/12/2018 98674 Pulse Wave/Continuous-Interp.RPT Completed 02/12/2018 13717 Color Flow Doppler/Interp & Reprt Completed 02/12/2018 33316 Moderate Sedation Services; Same Phys Intl 15 Mins; PT Completed >=5 Years 02/12/2018 69445 Moderate Sedation Services; Same Phys Each Additional Completed 15 Mins 02/04/2018 33839 ECHO Transthorasic Realtime 2D W Doppler & Color Flow Completed Hosp 11/18/2017 [id number] Bone Mineral Density Test Completed 11/17/2017 26738 ECHO Transthorasic Realtime 2D W Doppler & Color Flow Completed Hosp 11/09/2017 77112 EKG Tracing & Interpretation Completed 10/14/2017 39745 Moderate Sedation Services; Same Phys Intl 15 Mins; PT Completed >=5 Years 10/14/2017 89842 Cardioversion Completed 02/17/2017 [id number] Mammogram Completed 11/17/2016 20983 EKG Tracing & Interpretation Completed 08/24/2016 93512 EKG, Interpretation Only Completed 08/23/2016 93680 EKG, Interpretation Only Completed 02/15/2016 34677806 Mammogram Completed 01/16/2016 93556 Polysomnography Sleep Staging 4+ Parameters Completed 12/03/2015 01270 EKG Tracing & Interpretation Completed 10/10/2015 15284 EKG Tracing & Interpretation Completed 03/19/2015 14878 ECHO Transthorasic Realtime 2D W Doppler & Color Flow Completed Hosp 12/14/2014 64741 EKG Tracing & Interpretation Completed 10/31/2014 916133813 Bone Mineral Density Test Completed 10/31/2014 58461788 Mammogram Completed 09/29/2014 45075 EKG, Interpretation Only Completed 09/13/2014 13499 EKG Tracing & Interpretation Completed 03/06/2014 87661 ECHO Transthorasic Realtime 2D W Doppler & Color Flow Completed Hosp 11/07/2013 47647996 Mammogram Completed 09/05/2013 15955 EKG Tracing & Interpretation Completed 07/22/2013 87919 Myocardial Perfusion Imaging Tomographic (Spect) Completed Multiple Studies 07/22/2013 41398 Stress Test Completed 07/19/2013 16610 Stress Test Completed 07/13/2013 84230 Holter Monitor Review (24 hr)dr hernandez & gisele only Completed 07/11/2013 66791 EKG Tracing & Interpretation Completed 07/05/2013 23295 ECHO Transthorasic Realtime 2D W Doppler & Color Flow Completed Hosp 06/23/2013 57478 EKG Tracing & Interpretation Completed 09/09/2012 72737827 Mammogram Completed 09/09/2012 168568183 Bone Mineral Density Test Completed 06/15/2012 00700 EKG Tracing & Interpretation Completed 07/01/2011 51991175 Colonoscopy Completed 04/15/2011 61651770 Mammogram Completed 03/19/2011 72209 EKG Tracing & Interpretation Completed 02/07/2010 16004042 Mammogram Completed 02/07/2010 272795223 Bone Mineral Density Test Completed 01/30/2010 38843 EKG Tracing & Interpretation Completed 01/05/2009 27924 EKG Tracing & Interpretation Completed 12/27/2007 87495 EKG Tracing & Interpretation Completed 12/27/2007 27661 EKG Tracing & Interpretation Completed 11/24/2006 40201 EKG Tracing & Interpretation Completed Encounters Type Date Location Provider Dx Diagnosis Office Visit 02/22/2019 [facility] Internal Zulay Nayana, I83.10 Varicose veins of 4:00p Medicine - M.Torie unsp lower extremity [place] with inflammation R60.0 Localized edema Office Visit 01/27/2019 Orthopedic Ezequiel M84.374D Stress fracture, 9:30a Services Of Brittney Call right foot, subs C.M.A. for fx w routn heal Office Visit 01/25/2019 Kwaku Henderson, I48.0 Paroxysmal atrial 9:45a Cardiology Of Brittney fibrillation [facility] Q87.410 Marfan's syndrome with aortic dilation I34.0 Nonrheumatic mitral (valve) insufficiency Office Visit 01/04/2019 9:15a Orthopedic Ezequiel Haney79.671 Pain in right Services Of [facility] Call foot C.M.A. Office Visit 12/02/2018 10:30a Orthopedic Ezequiel M79.671 Pain in right Services Of Brittney Call foot Jes Office Visit 11/16/2018 11:10a [facility] Internal Zulay Z00.00 Encntr for Medicine - Brittney Kraus general adult [facility] medical exam w/o abnormal findings M81.0 Age-related osteoporosis w/o current pathological fracture M79.671 Pain in right foot Z12.11 Encounter for screening for malignant neoplasm of colon Office Visit 11/09/2018 10:30a [facility] Maria C S. I48.0 Paroxysmal atrial Of News Correspondent Foster, N.P. fibrillation Q87.410 Marfan's syndrome with aortic dilation Z79.01 long term care social worker (current) use of anticoagulants Office Visit 10/01/2018 1:30p [facility] Maria C S. I48.0 Paroxysmal atrial Of News Correspondent Foster, N.P. fibrillation R00.0 Tachycardia, unspecified R94.31 Abnormal electrocardiogram [ECG] [EKG] Q87.410 Marfan's syndrome with aortic dilation Office Visit 09/13/2018 4:40p [facility] Arlen Henderson, I48.92 Unspecified Of Latrell Haney.Torie atrial flutter R00.0 Tachycardia, unspecified Office Visit 08/27/2018 1:30p [facility] Maria C S. I48.0 Paroxysmal atrial Of News Correspondent Foster, N.P. fibrillation I77.810 Thoracic aortic ectasia Z79.01 long term care social worker (current) use of anticoagulants Office Visit 08/18/2018 [facility] Lianna I48.91 Unspecified atrial 10:32a Assoc,fatimah Rootjosselyn, DO fibrillation Hospitalists Office Visit 08/18/2018 [facility] Arlen Henderson, I48.91 Unspecified atrial 12:58p Of Latrell ChenDJan fibrillation Office Visit 08/10/2018 [facility] Marquita Swain I48.91 Unspecified atrial 10:37a Assocfatimah N.P. fibrillation Hospitalists Z86.79 Personal history of other diseases of the circulatory system I77.810 Thoracic aortic ectasia M85.80 Ot disrd of bone density and structure, unspecified site I34.0 Nonrheumatic mitral (valve) insufficiency E03.9 Hypothyroidism, unspecified Q87.40 Marfan's syndrome, unspecified Office Visit 08/10/2018 12:39p [facility] Edson Vogt I48.0 Paroxysmal atrial Of Latrell Smith M.D. fibrillation Q87.40 Marfan's syndrome, unspecified Z79.01 long term care social worker (current) use of anticoagulants Office Visit 08/09/2018 [facility] Danial I48.91 Unspecified 10:37a Assoc,fatimah Mccain N.PJan atrial Hospitalists fibrillation I77.810 Thoracic aortic ectasia M25.511 Pain in right shoulder I34.0 Nonrheumatic mitral (valve) insufficiency E03.9 Hypothyroidism, unspecified Q87.40 Marfan's syndrome, unspecified Office Visit 08/05/2018 [facility] Internal Zulay S13.8xxA Sprain of joints 11:10a Ninfa Kraus M.D. and ligaments of [place] oth prt neck, init encntr Office Visit 07/29/2018 [facility] Internal Henry Jesse, M25.511 Pain in right 10:40a Medicine HVAC R TECH shoulder Office Visit 01/19/2018 [facility] Bone, Q87.40 Marfan's syndrome, 2:40p Cardiology Of THADDEUS Lugo, unspecified [facility] AT [facility] Office Visit 11/09/2017 [facility], I48.0 Paroxysmal atrial 1:20p Cardiology Laci Lugo, THADDEUS, fibrillation [facility] AT [facility] Q87.40 Marfan's syndrome, unspecified I34.1 Nonrheumatic mitral (valve) prolapse Office Visit 10/20/2017 10:30a [facility] Internal [place]ul[place] I48.0 Paroxysmal atrial Ninfa Kraus M.D. fibrillation [place] E03.9 Hypothyroidism, unspecified Z23 Encounter for immunization Office Visit 10/14/2017 [facility] Yuriy I48.91 Unspecified atrial 8:30a Assoc,fatimah Bunch M.D. fibrillation Hospitalists Q87.40 Marfan's syndrome, unspecified E03.9 Hypothyroidism, unspecified Office Visit 10/14/2017 [facility] Arlen Henderson, I48.0 Paroxysmal atrial 11:59a Of Latrell Lugo fibrillation Office Visit 10/13/2017 [facility] Berna I48.91 Unspecified atrial 8:29a Assoc,fatimah Madison D.O. 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 osteoporosis w/o [place] current pathological fracture E87.6 Hypokalemia E83.42 Hypomagnesemia R21 Rash and other nonspecific skin eruption Z13.220 Encounter for screening for lipoid disorders Z00.01 Encounter for general adult medical exam w abnormal findings Z12.4 Encounter for screening for malignant neoplasm of cervix H61.22 Impacted cerumen, left ear Office Visit 11/17/2016 3:00p [facility] Meir Bone, Q87.40 Marfan's Of [facility] MJuan, FACC, syndrome, FSCAI unspecified I34.0 Nonrheumatic mitral (valve) insufficiency I48.0 Paroxysmal atrial fibrillation I34.1 Nonrheumatic mitral (valve) prolapse Office Visit 09/09/2016 9:30a Surgical Darian Montero K35.3 Acute appendicitis [facility] Brittney Agosto with localized peritonitis Office Visit 08/25/2016 1:41p [facility] Ezequiel I48.0 Paroxysmal atrial Assoc,fatimah Wells M.D. fibrillation Hospitalists K35.3 Acute appendicitis with localized peritonitis E03.9 Hypothyroidism, unspecified [facility]oxysmal atrial 1:41p Assoc,fatimah Lovelace NP fibrillation Hospitalists K35.3 Acute appendicitis with localized peritonitis E03.9 Hypothyroidism, unspecified Office Visit 08/24/2016 4:36p [facility] Viktor Romo I48.0 Paroxysmal atrial Of [facility] Pedro, DO fibrillation FACC Office Visit 08/23/2016 1:39[facility] Paroxysmal atrial Assoc,fatimah Lovelace NP fibrillation Hospitalists K35.3 Acute appendicitis with localized peritonitis E03.9 Hypothyroidism, unspecified Office Visit 08/21/2016 2:00p [facility] Internal Gorge Gipson, R10.31 Right lower Medicine - [place] HVAC R TECH quadrant pain Rd R35.0 Frequency of micturition Office Visit 02/07/2016 10:45a Pulmonology And Yudi G47.33 Obstructive sleep Sleep Services Of MD Liban apnea (adult) [facility] (pediatric) Office Visit 02/05/2016 11:10a [facility] Internal [place] Z00.00 Encntr for Ninfa Kraus M.D. general adult medical exam w/o abnormal findings Z12.31 Encntr screen mammogram for malignant neoplasm of breast E83.42 Hypomagnesemia E87.6 Hypokalemia Z11.59 Encounter for screening for other viral diseases Office Visit 12/18/2015 10:15a Pulmonology And Yudi G47.9 Sleep disorder, Sleep Services Of MD Liban unspecified [facility] Office Visit 12/03/2015 3:20p [facility] Meir Bone, I48.0 Paroxysmal atrial Of [facility] Brittney, [facility], fibrillation FSCAI I34.0 Nonrheumatic mitral (valve) insufficiency Q87.40 Marfan's syndrome, unspecified Office Visit 10/22/2015 11:10a [facility] Internal [place] B34.9 Viral infection, Medicine Brittney Kraus unspecified I48.0 Paroxysmal atrial fibrillation R74.0 Nonspec elev of levels of transamns & lactic acid dehydrgnse E87.6 Hypokalemia E83.42 Hypomagnesemia R06.83 Snoring Office Visit 10/19/2015 [facility] Yuriy I48.91 Unspecified atrial 10:43a Assocfatimah M.D. fibrillation Hospitalists Q87.40 Marfan's syndrome, unspecified I95.9 Hypotension, unspecified Office Visit 10/18/2015 [facility] Danial I48.91 Unspecified 10:42a Assocfatimah N.PJan atrial Hospitalists fibrillation Q87.40 Marfan's syndrome, unspecified I95.9 Hypotension, unspecified Office Visit 10/18/2015 3:45p Dillon[facility] Henderson I48.0 Paroxysmal atrial Cardiology Of Brittney fibrillation News Correspondent Office Visit 10/10/2015 3:40p Dillon[facility] Bone, I34.0 Nonrheumatic mitral Cardiology Of Brittney, FAC, (valve) News Correspondent AT [facility] insufficiency I48.0 Paroxysmal atrial fibrillation I77.810 Thoracic aortic ectasia Office Visit 09/20/2015 [facility] Internal [place] B30.1 Conjunctivitis due 11:50a Ninfa Kraus M.D. to adenovirus Office Visit 02/19/2015 [facility] Jd Dennis, 726.10 Bursae & Tendon 9:45a Services Of [place] Disorders Shoulder C.M.A. Region Unspec Office Visit 02/05/2015 [facility] Jd Dennis, 840.4 Sprains & Strains 11:00a Services Of [place] Rotator Cuff C.M.A. (Capsule) Office Visit 12/14/2014 [facility] Bone, 427.31 Atrial Fibrillation 3:20p Cardiology Of THADDEUS Lugo, [facility] AT [facility] 424.0 Mitral Valve Disorder 759.82 Marfan Syndrome Office Visit 11/07/2014 10:50a [facility] Internal [place] 733.01 Osteoporosis Senile Ninfa Kraus M.D. 786.2 Cough Office Visit 10/17/2014 9:10a [facility] Internal [place] V70.0 Examination Medicine Brittney Kraus General Medical Routine AT Health Care Facility V76.10 Screening For Malignant Neoplasm Breast 244.9 Hypothyroidism Other Unspec 733.90 Bone & Cartilage Disorder Unspec 840.4 Sprains & Strains Rotator Cuff (Capsule) V04.81 Need For Prophylactic Vaccination & Inoculation/Influenza V76.2 Screening Malignant Neoplasm Cervix V06.1 Tjykrcgdow-Ezvlxtr-Jzdidzpd Combined (DTaP) V72.31 Routine Registered Nurse Cardiac Examination Office Visit 09/30/2014 10:58a [place] 427.31 Atrial Cardiology Brittney Becker Fibrillation 759.82 Marfan Syndrome Office Visit 09/30/2014 [facility] 427.31 Atrial 12:15p Assocfatimah M.D. Fibrillation Hospitalists 244.9 Hypothyroidism Other Unspec 759.82 Marfan Syndrome Office Visit 09/29/2014 [facility] 427.31 Atrial 12:14p Assfatimah welsh M.D. Fibrillation Hospitalists 244.9 Hypothyroidism Other Unspec 759.82 Marfan Syndrome Office Visit 09/29/2014 12:29p [facility] Jared Shankar 427.31 Atrial Of Latrell Garcia M.D., Fibrillation FACC, FASNC 424.0 Mitral Valve Disorder Office Visit 09/13/2014 2:20p [facility] Meir Bone, 427.31 Atrial Of News Correspondent [facility] MJuan, FACC, Fibrillation FSCAI 424.0 Mitral Valve Disorder Office Visit 03/21/2014 11:40a [facility] Internal Fern Jean, 088.81 Lyme Disease Medicine M.D., FACP 300.00 Anxiety State Unspec Office Visit 09/05/2013 9:20a [facility] Internal Fern Jean, 780.79 Malaise And Medicine M.D., FACP Fatigue Other V70.0 Examination General Medical Routine AT Health Care Facility V72.31 Routine Registered Nurse Cardiac Examination V76.10 Screening For Malignant Neoplasm Breast 424.0 Mitral Valve Disorder 427.31 Atrial Fibrillation 244.9 Hypothyroidism Other Unspec 759.82 Marfan Syndrome V04.81 Need For Prophylactic Vaccination & Inoculation/Influenza 272.0 Hypercholesterolemia Pure v76.2 Screening Malignant Neoplasm Cervix Office Visit 08/04/2013 9:15a [facility] Meir Bone, 427.31 Atrial Of [facility] Brittney, FACC, Fibrillation FSCAI 424.0 Mitral Valve Disorder Office Visit 07/11/2013 10:30a [facility] Meir Bone, 424.0 Mitral Valve Of [facility] AT [facility] MJuan, FACC, Disorder FSCAI Office Visit 06/29/2013 10:00a [facility] Internal Fern Jean, 427.31 Atrial Medicine M.D., FACP Fibrillation 244.9 Hypothyroidism Other Unspec Office Visit 06/23/2013 8:40a [facility] Internal Fern Jean, 786.59 Pain Chest Medicine M.D., FACP Other 427.31 Atrial Fibrillation Office Visit 06/01/2013 10:20a [facility] Internal Fern Jean, 088.81 Lyme Disease Medicine M.D., FACP Office Visit 09/01/2012 1:20p [facility] Internal Fern Jean, V70.0 Examination Medicine M.D., FACP General Medical Routine AT Health Care Facility V72.31 Routine Registered Nurse Cardiac Examination V76.10 Screening For Malignant Neoplasm Breast 244.9 Hypothyroidism Other Unspec 759.82 Marfan Syndrome 733.90 Bone & Cartilage Disorder Unspec 300.00 Anxiety State Unspec V04.81 Need For Prophylactic Vaccination & Inoculation/Influenza Office Visit 07/05/2012 11:00a [facility] Internal Oanh Bateman, 300.00 Anxiety State Medicine M.D. Unspec Office Visit 06/15/2012 11:20a [facility] Internal Oanh Bateman, 759.82 Marfan Syndrome Medicine M.D. 244.9 Hypothyroidism Other Unspec 785.1 Palpitations 300.00 Anxiety State Unspec Office Visit 06/10/2011 2:20p DO Not Use Fernprosper Jean, 759.82 Marfan Syndrome Edy Lugo, FACP 477.9 Rhinitis Allergic Cause Unspec V72.31 Routine Registered Nurse Cardiac Examination V70.0 Examination General Medical Routine AT Health Care Facility 244.9 Hypothyroidism Other Unspec Office Visit 03/19/2011 2:15p DO Not Use Fernprosper Jean, 366.00 Cataract Edy uLgo, FACP Nonsenile Unspec 759.82 Marfan Syndrome V72.84 Examination Preoperative Unspec V76.12 Screening Mammogram Malig Valentin Other Office Visit 06/25/2010 4:15p DO Not Use Fern Jean, 692.6 Dermatitis Edy Lugo, FACP Contact Due To Plants (Except Food) Office Visit 02/27/2010 11:00a DO Not Use Fernprosper Jean, 733.90 Bone & Cartilage Edy Lugo, FACP Disorder Unspec Office Visit 01/30/2010 9:15a DO Not Use Fern Miranda, V72.31 Routine Registered Nurse Cardiac Edy Lugo, FACP Examination 759.82 Marfan Syndrome V04.81 Need For Prophylactic Vaccination & Inoculation/Influenza Office Visit 07/31/2009 DO Not Use Francia Lancaster 692.6 Dermatitis 3:00p Edy N.P. Contact Due To Plants (Except Food) Office Visit 02/01/2009 DO Not Use Fern Miranda, 716.99 Arthropathy 2:30p Edy Lugo, FACP Unspec Multiple Sites 759.82 Marfan Syndrome Office Visit 01/05/2009 1:15p DO Not Use Fern Miranda, V72.31 Routine Registered Nurse Cardiac Edy Lugo, FACP Examination 719.40 Pain Joint [...] DO Not Use Fern Miranda, V72.31 Routine Registered Nurse Cardiac 10:45a Edy Lugo, FACP Examination 733.90 Bone & Cartilage Disorder Unspec 244.9 Hypothyroidism Other Unspec 759.82 Marfan Syndrome 272.0 Hypercholesterolemia Pure Office Visit 11/24/2006 11:30a DO Not Use Fern Miranda, V72.31 Routine Registered Nurse Cardiac Edy Lugo, FACP Examination V04.81 Need For Prophylactic Vaccination & Inoculation/Influenza Office Visit 09/15/2006 2:15p DO Not Use Fern Miranda, 466.0 Bronchitis Acute Edy Lugo, FACP Plan of Treatment Future Appointment(s):04/04/2019 4:00 pm - Arlen Henderson M.D. at [facility]03/08/2019 11:50 am - Zulay Kraus M.D. at [facility] Internal Mxzzuuny51/25/2019 9:30 am - Ezequiel Call M.D. at [facility]03/03/2019 - Arlen Henderson M.D.R60.0 Localized edemaComments:Agree w/ CAT scan, I too feel aorta enlarged.? compressing the vein.Recommendations:No diuretics for now, BP low, they haven't helped. Let's see what the CT scan shows.I48.0 Paroxysmal atrial fibrillationComments:GOod intervals, continue Sotalol for rhythm control and Xarelto for stroke prevention.Follow up:1 month, no ECG.Q87.410 Marfan's syndrome with aortic sxmvvbgoM40.2 Thoracic aortic aneurysm, without rupture
--- OUTSIDE RECORDS SUMMARY | 2019-03-12 20:31 | XMS REPORT | Continuity of Care Document ---
:1955 External Reference #:[id number] Author Name Genie Granger Care Team Providers Name Role Phone Zulay Kraus MD Primary Care Physician Unavailable Payers Date Identification Numbers Payment Provider Subscriber Policy Number: [id number] [facility] Nicky Moore PayID: [id number] [address] [place] [address] Advance Directives Description No Information Available Problems Date Description Provider Status Onset: 03/17/2011 Marfan's syndrome Fern Jean M.D., FACP Active Onset: 03/17/2011 Hypothyroidism Fern Jean M.D., FACP Active Onset: 09/13/2014 Mitral valve disorder Meir Bone M.D., [facility], [facility] Active Note: mitral valave insufficiency Onset: 11/07/2014 Osteoporosis Zulay Kraus M.D. Active Onset: 11/07/2014 Scoliosis deformity of spine Zulay Kraus M.D. Active Onset: 02/19/2015 Tendinosis Zulay Kraus M.D. Active Note: rotatot cuff with AC joint OA Onset: 10/10/2015 Thoracic aortic ectasia Meir Bone M.D., [facility], [facility] Active Onset: 10/23/2015 Arachnoid cyst Zulay Kraus M.D. Active Note: L anterior fossa Onset: 12/18/2015 Disturbance in sleep behavior Yudi Louie MD Active Onset: 11/17/2016 Paroxysmal atrial fibrillation Meir Bone M.D., [facility], Active [facility] Onset: 03/17/2011 Osteochondropathy Fern Jean M.D., FACP Inactive Inactive: 11/07/2014 Onset: 03/17/2011 Pure hypercholesterolemia Fern Jean M.D., FACP Inactive Inactive: 11/07/2014 Family History Date Family Member(s) Observation Comments General Heart Disease : (age 43 Years) Father due to [place] Father due to Marfan's () Mother due to Stroke () : (age 42 Years) First Brother due to Accident First Sister 67 First Sister Chronic Obstructive Pulmonary Disease (COPD) Social History Type Date Description Comments Sex Unknown Marital Status Single 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 -MG Supplement 18 s mouth 3 Foster, times N.P. daily Irbesartan 10/01/20 Active Tablets 75mg 14tab take 1 Q87.410 Maria C S. 18 s tab bid Foster, N.P. Sotalol HCL (AF) 09/15/20 Active Tablets 120mg 90tab 1/2 tab Arlen 18 s by mouth Mcgregor, twice a M.D. day Levothyroxine 10/20/20 Active Tablets 100mcg 90tab Take 1 E03.9 Zulay Sodium 17 s Tablet Kraus, By Mouth M.D. Daily Calcium 600 + D 02/05/20 Active Tablets 600-200mg 1 tab Zulay 16 -Unit bid Naayna, M.DJan Potassium 10/23/20 Active Capsules 10Meq 360ca 2 tabs Arlen Chloride ER 15 ER ps by mouth Mcgregor, bid M.D. Xarelto 10/04/20 Active Tablets 20mg [...] Henry 18 - s every 12 Jesse, [employer] 08/03/20 hours as 18 needed for pain. Zostavax 10/20/20 Hx Suspension [id number]/ 1unit sc x1 Zulay 17 - Rec [...] 08/26/20 by mouth M.D., 18 daily FAC, [facility] Alendronate 11/07/20 Hx Tablets 70mg 12tab take [...] CPT Code Status Date Vaccine Lot # [id number] Given 10/09/2018 Influenza Virus Vaccine, Quadrivalent, Split, Preservative Free 15653 Given 07/19/2018 Zoster (Shingles) Vaccine (HZV), Recombinant, Subunit, Adjuvanted 14909 Given 07/19/2018 Zoster (Shingles) Vaccine (HZV), Recombinant, Subunit, Adjuvanted 30240 Given 10/20/2017 Influenza Virus Vaccine, Quadrivalent, Split, [id number] Preservative Free 45222 Given 11/26/2016 Influ Virus Vaccine, Quadrivalent, Split Virus, [place] [address] Given 2015 Influenza Virus Vaccine, Quadrivalent, Split, Preservative Free 92333 Given 10/17/2014 Tdap - Tetanus/Diptheria/Acellular Pertussis [id number] 19375 Given 10/17/2014 Flu Vaccine Split Virus Preservative Free For [id number] Indiv 3Yr Older 64368 Given 09/05/2013 Flu Vaccine Split Virus Preservative Free For [id number] Indiv 3Yr Older [id number] Given 09/01/2012 Fluzone Vaccine [id number] 12981 Given 01/30/2010 Influenza Virus Vaccine, Pandemic Formulation 92691 Given 01/30/2010 Administration Swine Flu Shot 11850 Given 01/05/2009 Influenza Virus 3Yrs & Over 41728 Given 11/24/2006 Influenza Virus 3Yrs & Over 25388 Given 11/24/2006 Influenza Virus 3Yrs & Over 73286 Given 2003 Td Toxoids Adsorbed For Use 7Yrs Or Older For Intramuscular Use Vital Signs Date Vital Result Comment 02/24/2019 9:38am Height 70.5 inches 5'10.50" Heart [...] Test Result H/L Range Note Laboratory test 02/17/2019 [facility] TSH 8.89 mcIU/mL High 0.34-5.[address] ([place] [address] Stim Ifnb) [phone] T3 Free 3.00 pg/mL N 2.5-3.9 Free T4 (Free Thyroxine) 1.12 ng/dL N 0.61-1.12 Urinalysis Profile 02/17/2019 [facility] Urine Color St[place] [address] [place] [address] [phone] Urine Appearance Clear Urine Specific Ovalo 1.009 Low 1.010-1.030 Urine pH 7.0 N 5-9 Urine Urobilinogen Negative Negative Urine Ketones Negative Negative Urine Protein Negative Negative Urine Leukocytes Negative Negative Urine Blood Negative Negative * * Abnormal Negative 1 Urine Nitrite Negative Negative Urine Bilirubin Negative Negative Urine Glucose Negative Negative Comp Metabolic Panel 02/17/2019 [facility] Sodium 136 mmol/L N 135-145 [address] [place] [address] [phone] Potassium 4.7 mmol/L N 3.5-5.0 Chloride 103 [...] Egfr Non- 99.4 >60 Egfr 120.3 >60 2 Basic Metabolic Panel 12/30/2018 [facility] Sodium 137 mmol/L N 135-145 [address] [place] [address] [phone] Potassium 4.9 mmol/L N 3.5-5.0 Chloride 103 mmol/L N 101-111 Co2 Carbon Dioxide 31 mmol/L N 22-32 Anion Gap 3 mmol/L N 2-11 Glucose 85 mg/dL N 70-100 Blood Urea Nitrogen 16 mg/dL N 6-24 Creatinine 0.63 mg/dL N 0.51-0.95 BUN/Creatinine Ratio 25.4 High 8-20 Calcium 9.2 mg/dL N 8.6-10.3 Egfr Non- 95.8 >60 Egfr 115.9 >60 3 Laboratory test 12/30/2018 [facility] Magnesium 2.0 mg/dL N 1.9-2.7 finding [address] [place] [address] [phone] Laboratory test 12/14/2018 [facility] Hemosure Negative finding Non-Medicare Basic Metabolic 10/29/2018 [facility] Sodium 139 mmol/L N 135- 145 Panel [address] [place] [address] [phone] Potassium 3.9 mmol/L N 3.5-5.0 Chloride 104 mmol/L N 101-111 Co2 Carbon Dioxide 27 mmol/L N 22-32 Anion Gap 8 mmol/L N 2-11 Calcium 9.2 mg/dL N 8.6-10.3 Glucose 72 mg/dL N 70-100 Blood Urea Nitrogen 16 mg/dL N 6-24 Creatinine 0.72 mg/dL N 0.51-0.95 BUN/Creatinine Ratio 22.2 High 8-20 Egfr Non- 82.1 >60 Egfr 99.3 >60 4 Laboratory test 10/29/2018 [facility] Magnesium 1.8 mg/dL Low 1.9-2.7 5 finding [address] [place] [address] [phone] Basic Metabolic 10/13/2018 [facility] Sodium 138 mmol/L N 135- 145 Panel [address] [place] [address] [phone] Potassium 3.8 mmol/L N 3.5-5.0 Chloride 108 mmol/L N 101-111 Co2 Carbon Dioxide 26 mmol/L N 22-32 Anion Gap 4 mmol/L N 2-11 Glucose 93 mg/dL N 70-100 Blood Urea Nitrogen 14 mg/dL N 6-24 Creatinine 0.57 mg/dL N 0.51-0.95 BUN/Creatinine Ratio 24.6 High 8-20 Calcium 8.8 mg/dL N 8.6-10.3 Egfr Non- 107.5 >60 Egfr 130.0 >60 6 Laboratory test 10/13/2018 [facility] Magnesium 1.8 mg/dL Low 1.9-2.[address] [place] [address] [phone] Laboratory test 10/01/2018 [facility] Magnesium <pending> finding [address] [place] [address] [phone] CBC Auto Diff 08/18/2018 [facility] White Blood 5.9 N 3.5- 10.[address] Count 10^3/[place] [address] [phone] Red Blood Count 4.83 10^6/uL N 4.00-5.40 [...] Red Blood Cells % 0.1 Inr/Protime 08/18/2018 [facility] Inr 2.23 High 0.77-1.[address] [place] [address] [phone] Laboratory test 08/18/2018 [facility] Partial 45.5 High 26.0- 36.[address] [place] [address] Time PTT [phone] D Dimer Quantitative < 200 ng/mL N Less Than 230 7 B-Type Natriuretic Peptide BNP 571 pg/mL High 8 Lactic Acid 0.8 mmol/L N 0.5-2.0 9 Comp Metabolic Panel 08/18/2018 [facility] Sodium 134 mmol/L Low 135-[address] [place] [address] [phone] Potassium 4.5 mmol/L N 3.5-5.0 Chloride 102 [...] Egfr Non- 59.8 >60 Egfr 72.4 >60 10 Laboratory test 08/18/2018 [facility] Magnesium 2.2 mg/dL N 1.9-2.[address] [place] [address] [phone] Creatine Kinase(CK) 44 U/L N 10-223 Troponin-I (TnI) 0.00 ng/mL <0.04 CKMB 08/18/2018 [facility] CKMB ng/mL 1.8 ng/mL N 0.6-6.[address] [place] [address] [phone] Laboratory test 08/18/2018 [facility] TSH 4.47 N 0.34-5.[address] (Thyroid mcIU/[place] [address] Stim Horm) [phone] Laboratory test 08/09/2018 [facility] Troponin-I 0.00 ng/mL < 0.[address] (TnI) [place] [address] [phone] CBC Auto Diff 08/09/2018 [facility] White Blood 5.0 10^3/uL N 3.5-10.[address] [place] [address] [phone] Red Blood Count 4.44 10^6/uL N 4.00-5.40 [...] Blood Cells % 0.1 Laboratory test 08/09/2018 [facility] Lactic Acid 0.6 mmol/L N 0.5-2.[address] [place] [address] [phone] Troponin-I (TnI) 0.01 ng/mL <0.04 Comp Metabolic Panel 08/09/2018 [facility] Sodium 137 mmol/L N 135-[address] [place] [address] [phone] Potassium 4.3 mmol/L N 3.5-5.0 Chloride 105 [...] Egfr 54.2 >60 12 Laboratory test 08/09/2018 [facility] Magnesium 2.0 mg/dL N 1.9-2.7 finding [facility] [place] [address] [phone] Laboratory test 02/04/2018 [facility] TSH (Thyroid 2.13 N 0.34 -5.[address] [place] [address] Stim Horm) mcIU/[place] [address] [phone] Free T4 (Free Thyroxine) 0.93 ng/dL N 0.61-1.12 T3 Free 3.10 pg/mL N 2.5-3.9 Laboratory test 01/08/2018 [facility] Troponin-I 0.00 ng/mL < 0.[address] [place] [address] (TnI) [place] [address] [phone] CBC Auto Diff 01/08/2018 [facility] White Blood 7.3 N 3.5- 10.8 [facility] Count 10^3/[place] [address] [phone] Red Blood Count 4.72 10^6/uL N 4.0-5.4 [...] Red Blood Cells % 0 Inr/Protime 01/08/2018 [facility] Inr 2.10 High 0.77-1.[address] [place] [address] [phone] Laboratory test 01/08/2018 [facility] Partial 46.4 High 26.0- 36.3 finding [address] [facility] [place] [place] [address] Time PTT [phone] Lactic Acid 0.9 mmol/L N 0.5-2.0 13 B-Type Natriuretic Peptide BNP 354 pg/mL High 14 Comp Metabolic Panel 01/08/2018 [facility] Sodium 133 mmol/L N 133-145 [address] [place] [address] [phone] Potassium 4.2 mmol/L N 3.5-5.0 Chloride 101 [...] Egfr Non- 65.3 >60 Egfr 84.0 >60 15 Laboratory test 01/08/2018 [facility] Magnesium 1.9 mg/dL N 1.9-2.[address] [place] [address] [phone] Creatine Kinase(CK) 46 U/L N 10-223 Troponin-I (TnI) 0.00 ng/mL <0.04 CKMB 01/08/2018 [facility] CKMB ng/mL 1.8 ng/mL N 0.6-6.[address] [place] [address] [phone] Laboratory test 01/08/2018 [facility] TSH 2.84 N 0.34-5.60 finding (Thyroid mcIU/[place] [address] Stim Horm) [phone] Laboratory test 11/20/2017 [facility] TSH 1.54 N 0.34-5.[address] (Thyroid mcIU/[place] [address] Stim Horm) [phone] T3 Free 3.50 pg/mL N 2.5-3.9 Free T4 (Free Thyroxine) 1.19 ng/dL High 0.61-1.12 Creatinine 11/17/2017 [facility] Creatinine 0.82 mg/dL N 0.51- [address] [place] [address] [phone] Egfr Non- 70.9 >60 Egfr 91.1 >60 16 Laboratory test 11/17/2017 [facility] Blood Urea 15 mg/dL N 6- 24 finding [facility] [place] [address] [phone] Laboratory test 10/13/2017 [facility] Troponin-I 0.01 ng/mL < 0.04 finding (TnI) [place], [place] [id number] [phone] CBC Auto Diff 10/13/2017 [facility] White Blood 7.4 10^3/uL N 3.5-10.[address] [place] [address] [phone] Red Blood Count 4.67 10^6/uL N 4.0-5.4 [...] Blood Cells % 0 Laboratory test 10/13/2017 [facility] Lactic Acid 1.0 mmol/L N 0.5-2.0 17 finding [address] [place] [address] [phone] Comp Metabolic 10/13/2017 [facility] Sodium 135 mmol/L N 133- 145 Panel [address] [place] [address] [phone] Potassium 4.3 mmol/L N 3.5-5.0 Chloride 103 [...] Egfr Non- 62.8 >60 Egfr 80.8 >60 18 Laboratory test 10/13/2017 [facility] Troponin-I (TnI) 0.00 ng/ mL <0.04 finding [address] [place] [address] [phone] Magnesium 2.0 mg/dL N 1.9-2.7 D Dimer Quantitative < 200 ng/mL N Less Than 230 19 Laboratory test 10/13/2017 [facility] TSH (Thyroid 7.01 High 0.34-5.60 finding 101 [facility] Stim Horm) mcIU/[place] [address] [phone] Free T4 (Free Thyroxine) 1.03 ng/dL N 0.61-1.12 Basic Metabolic Panel 06/10/2017 [facility] Sodium 137 mmol/L N 133-145 [address] [place] [address] [phone] Potassium 4.1 mmol/L N 3.5-5.0 Chloride 105 mmol/L N 101-111 Co2 Carbon Dioxide 27 mmol/L N 22-32 Anion Gap 5 mmol/L N 2-11 Glucose 88 mg/dL N 70-100 Blood Urea Nitrogen 12 mg/dL N 6-24 Creatinine 0.69 mg/dL N 0.51-0.95 BUN/Creatinine Ratio 17.4 N 8-20 Calcium 9.2 mg/dL N 8.6-10.3 Egfr Non- 86.8 N >60 Egfr 111.6 N >60 20 Laboratory test 06/10/2017 [facility] Magnesium 1.8 mg/dL Low 1.9-2.7 finding [address] [place] [address] [phone] Lipid Profile 06/10/2017 [facility] Triglycerides 104 mg/dL N 21 (Trig/Chol/HDL) [address] [place] [address] [phone] Cholesterol 182 mg/dL N 22 HDL Cholesterol 42.5 mg/dL N 23 LDL Cholesterol 119 mg/dL N 24 Laboratory test 05/27/2017 [facility] Cytology SEE RESULT [address] [place] [address] [phone] Laboratory test 02/02/2017 [facility] TSH (Thyroid 2.01 mcIU/mL N 0.34-[address] Stim Horm) .60 [place] [address] [phone] T3 Free 3.40 pg/mL N 2.5-3.9 Free T4 (Free Thyroxine) 0.94 ng/dL N 0.61-1.12 Basic Metabolic Panel 08/21/2016 [facility] Sodium 135 mmol/L N 133-[address] [place] [address] [phone] Potassium 4.3 mmol/L N 3.5-5.0 Chloride 99 mmol/L Low 101-111 Co2 Carbon Dioxide 29 mmol/L N 22-32 Anion Gap 7 mmol/L N 2-11 Glucose 73 mg/dL N 70-100 Blood Urea Nitrogen 14 mg/dL N 6-24 Creatinine 0.72 mg/dL N 0.51-0.95 BUN/Creatinine Ratio 19.4 N 8-20 Calcium 8.9 mg/dL N 8.6-10.3 Egfr Non- 82.9 N >60 Egfr 106.6 N >60 26 CBC Auto Diff 08/21/2016 [facility] White Blood 10.4 10^3/uL N 3.5-10.[address] [place] [address] [phone] Red Blood Count 4.49 10^6/uL N 4.0-5.4 [...] Nucleated Red Blood Cells % 0 N Ua Routine 08/21/2016 [facility] Ua Specific Ovalo 1.010 Ua PH 5 Ua Color yellow Ua Appera clear Ua WBC neg Ua Protein neg Ua Glucose normal Ua Ketones neg Ua Bilirubin neg Ua Urobilinogen normal Ua Nitrite neg Ua Occult Blood about 250 Laboratory test 08/21/2016 [facility] Cytology SEE RESULT [address] [place] [address] [phone] Urine Culture And 08/21/2016 [facility] Urine Culture SEE RESULT [address] [place] [address] [phone] Laboratory test 08/21/2016 [facility] Blood Culture SEE RESULT [address] [place] [address] [phone] Urinalysis Profile 08/21/2016 [facility] Urine Color Colorless N [address] [place], [place] [address] [phone] Urine Appearance Clear N Urine Specific Ovalo 1.014 N 1.010-1.030 Urine pH 7.0 N [...] Absent N Absent Laboratory test finding 08/21/2016 [facility] Lipase 36 U/L N 11.0-82.[address] [place] [address] [phone] C Reactive Protein 78.75 mg/L High < 5.00 30 Comp Metabolic Panel 08/21/2016 [facility] Sodium 134 mmol/L N 133-[address] [place] [address] [phone] Potassium 3.9 mmol/L N 3.5-5.0 Chloride 99 [...] 93.3 N >60 Egfr 120.0 N >60 31 Laboratory test 08/21/2016 [facility] Partial 33.9 seconds N 26.0-36.[address] [place] [address] PTT [phone] Lactic Acid 0.8 mmol/L N 0.5-2.0 32 Inr/Protime 08/21/2016 [facility] Inr 1.21 High 0.89-1.[address] [place] [address] [phone] CBC Auto Diff 08/21/2016 [facility] White Blood 9.8 N 3.5- 10.[address] Count 10^3/[place] [address] [phone] Red Blood Count 4.34 10^6/uL N 4.0-5.4 [...] Blood Cells % 0 N Laboratory test 02/05/2016 [facility] Magnesium 1.9 mg/dL N 1.9-2.7 finding [address] [place] [address] [phone] Basic Metabolic 02/05/2016 [facility] Sodium 136 mmol/L N 133- 145 Panel [address] [place] [address] [phone] Potassium 4.3 mmol/L N 3.5-5.0 Chloride 102 mmol/L N 101-111 Co2 Carbon Dioxide 31 mmol/L N 22-32 Anion Gap 3 mmol/L N 2-11 Glucose 86 mg/dL N 70-100 Blood Urea Nitrogen 15 mg/dL N 6-24 Creatinine 0.61 mg/dL N 0.51-0.95 BUN/Creatinine Ratio 24.6 High 8-20 Calcium 9.3 mg/dL N 8.6-10.3 Egfr Non- 100.4 N >60 Egfr 129.1 N >60 33 Laboratory 02/05/2016 [facility] Hepatitis C Nonreactive N Nonreactive test finding [address] [employer] [facility] [place] [address] [phone] Basic 11/16/2015 [facility] Sodium 136 mmol/L N 133-145 Metabolic [address] [employer] [address] [phone] Potassium 4.7 mmol/L N 3.5-5.0 Chloride 102 mmol/L N 101-111 Co2 Carbon Dioxide 29 mmol/L N 22-32 Anion Gap 5 mmol/L N 2-11 Glucose 82 mg/dL N 70-100 Blood Urea Nitrogen 16 mg/dL N 6-24 Creatinine 0.66 mg/dL N 0.51-0.95 BUN/Creatinine Ratio 24.2 High 8-20 Calcium 9.4 mg/dL N 8.6-10.3 Egfr Non- 91.7 N >60 Egfr 117.9 N >60 34 Laboratory test 11/16/2015 [facility] Magnesium 1.8 mg/dL Low 1.9-2.7 finding [address] [place] [address] [phone] Digoxin 0.5 ng/ml Low 0.8-2.0 Comp Metabolic Panel 10/22/2015 [facility] Sodium 133 mmol/L N 133-145 [address] [place] [address] [phone] Potassium 4.1 mmol/L N 3.5-5.0 Chloride 97 [...] 85.6 N >60 Egfr 110.1 N >60 35 Coxsackie A 10/22/2015 [facility] Coxsackie Virus Type A(2) Ab < 1:[address] [place] [address] [phone] Coxsackie Virus Type A(4) Ab <1:8 N Coxsackie Virus Type A(7) Ab <1:8 N Coxsackie Virus Type A(9) AB <1:8 N Coxsackie Virus Type A(10) Ab <1:8 N Coxsackie Virus Type A(16) Ab <1:8 N 36 Laboratory test 10/22/2015 [facility] Magnesium 1.8 mg/dL Low 1.9-2.[address] [place] [address] [phone] Harrison Lux 10/22/2015 [facility] Ebv Capsid Ag Positive N Negative Comprehensive [address] [place] [address] [phone] Ebv Capsid Ag IgM Ab Negative N Negative Harrison-Lux Nuclear Antigen Positive N Negative Harrison-Lux Virus Interp See Comment N 37 Laboratory test 10/22/2015 [facility] Digoxin 0.8 ng/ml N 0.8- 2.[address] [place] [address] [phone] CBC Auto Diff 10/18/2015 [facility] White Blood 6.3 10^3/uL N 4.8-10.[address] [place] [address] [phone] Red Blood Count 4.95 10^6/uL N 4.0-5.4 [...] Cells % 0 N Laboratory test 10/18/2015 [facility] Lactic Acid 0.8 mmol/L N 0.5-2.2 finding [address] [place] [address] [phone] Comp Metabolic 10/18/2015 [facility] Sodium 135 mmol/L N 133- 145 Panel [address] [place] [address] [phone] Potassium 3.6 mmol/L N 3.5-5.0 Chloride 103 [...] 90.1 N >60 Egfr 115.9 N >60 38 Laboratory test 10/18/2015 [facility] Magnesium 1.8 mg/dL Low 1.9-2.7 finding [address] [place] [address] [phone] Troponin-I (TnI) 0.00 ng/mL N <0.03 39 TSH (Thyroid Stim Horm) 1.39 ?IU/mL N 0.34-5.60 Basic Metabolic Panel 12/17/2014 [facility] Sodium 134 mmol/L N 133-145 [address] [place] [address] [phone] Potassium 4.1 mmol/L N 3.5-5.0 Chloride 103 mmol/L N 101-111 Co2 Carbon Dioxide 30 mmol/L N 22-32 Anion Gap 1 mmol/L Low 2-11 Glucose 72 mg/dL N 70-100 Blood Urea Nitrogen 17 mg/dL N 6-24 Creatinine 0.76 mg/dL N 0.51-0.95 BUN/Creatinine Ratio 22.4 High 8-20 Calcium 9.1 mg/dL N 8.6-10.3 Egfr Non- 78.2 N >60 Egfr 100.5 N >60 40 Basic Metabolic Panel 12/16/2014 [facility] Sodium 134 mmol/L N 133-[address] [place] [address] [phone] Potassium 4.1 mmol/L N 3.5-5.0 Chloride 103 mmol/L N 101-111 Co2 Carbon Dioxide 30 mmol/L N 22-32 Anion Gap 1 mmol/L Low 2-11 Glucose 72 mg/dL N 70-100 Blood Urea Nitrogen 17 mg/dL N 6-24 Creatinine 0.76 mg/dL N 0.51-0.95 BUN/Creatinine Ratio 22.4 High 8-20 Calcium 9.1 mg/dL N 8.6-10.3 Egfr Non- 78.2 N >60 Egfr 100.5 N >60 41 Pthi 11/13/2014 [facility] PTH Intact 3.4 pmol/L N 1.3-9.[address] [place] [address] [phone] Calcium (PTH Intact) 9.0 mg/dL N 8.6-10.3 Laboratory test 11/13/2014 [facility] TSH (Thyroid 1.75 IU/mL N 0.34-5.[address] [place] [address] Horm) [phone] Free T3 2.80 pg/mL N 2.5-3.9 Free T4 0.93 ng/mL N 0.61-1.12 Vitamin D, 25 11/13/2014 [facility] 25-Hydroxy Vitamin 4.5 ng/ mL N Hydroxy [address] [place] [place] [address] [phone] 25-Hydroxy Vitamin D3 32 ng/mL N 25-Hydroxy Vitamin D Total 37 ng/mL N 42 CBC Auto 10/20/2014 [facility] White Blood 4.6 10^3/uL Low 4.8 -10.[address] [place] [address] [phone] Red Blood Count 4.24 10^6/uL N 4.0-5.4 [...] Cells % 0.1 N Laboratory test 10/20/2014 [facility] Rapid Influenza (SEE NOTE ) [address] [place] [place] [address] [phone] Basic Metabolic 10/20/2014 [facility] Sodium 130 mmol/L Low 133-[address] [place] [address] [phone] Potassium 3.9 mmol/L N 3.5-5.0 44 Chloride 98 mmol/L Low 101-111 Co2 Carbon Dioxide 26 mmol/L N 22-32 Anion Gap 6 mmol/L N 2-11 Glucose 80 mg/dL N 70-100 Blood Urea Nitrogen 9 mg/dL N 6-24 Creatinine 0.68 mg/dL N 0.51-0.95 BUN/Creatinine Ratio 13.2 N 8-20 Calcium 8.6 mg/dL N 8.6-10.3 Egfr Non- 88.9 N >60 Egfr 114.3 N >60 45 Laboratory test 10/17/2014 [facility] Cytology RUN DATE: finding [address] <SEE NOTE> [place] [address] [phone] Human Papilloma Virus Rna Negative N Negative 47 Laboratory test 10/13/2014 [facility] TSH (Thyroid 4.13 IU/mL N 0.34-5.[address] [place] [address] Horm) [phone] Free T3 2.60 pg/mL N 2.5-3.9 Free T4 0.94 ng/mL N 0.61-1.12 Laboratory test 09/29/2014 [facility] Magnesium 1.9 mg/dL N 1.9-2.[address] [place] [address] [phone] Troponin I 0.00 ng/mL N <0.03 48 TSH (Thyroid Stimulating Horm) 6.43 IU/mL High 0.34-5.60 CBC Auto Diff 09/29/2014 [facility] White Blood 9.4 10^3/uL N 4.8-10.[address] [place] [address] [phone] Red Blood Count 4.55 10^6/uL N 4.0-5.4 [...] % 0.1 N Comp Metabolic Panel 09/29/2014 [facility] Sodium 138 mmol/L N 133-145 [address] [place] [address] [phone] Potassium 4.1 mmol/L N 3.7-5.6 Chloride 103 [...] >60 Egfr 90.8 N >60 49 Laboratory 11/01/2013 [facility] TSH (Thyroid 6.00 High 0.34- 5.60 test finding 101 Stimulating miu/[place] [address] Horm) [phone] Free T4 0.84 ng/mL 0.61-1.24 Lipid Profile 11/01/2013 [facility] Triglycerides 98 mg/dL 40 -200 (Trig/Chol/HDL) [address] [place] [address] [phone] Cholesterol 208 mg/dL High Less than 200 HDL Cholesterol 64 mg/dL High 40-60 50 Cholesterol/HDL Ratio 3.3 Average 1-4.44 LDL Cholesterol 124.4 High Less Than 100 51 Comp Metabolic Panel 11/01/2013 [facility] Sodium 137 mmol/L 133-[address] [place] [address] [phone] Potassium 4.3 mmol/L 3.5-5.0 Chloride 102 mmol/L [...] Egfr Non- 86.2 >60 Egfr 110.9 >60 52 Laboratory test 11/01/2013 [facility] CRP High 0.8 mg/L [address] [place] [address] [phone] Laboratory test 09/05/2013 [facility] Cytology RUN DATE: [address] 09/06/ [place] [address] <SEE NOTE> [phone] CBC Auto Diff 06/23/2013 [facility] White Blood Count 7.1 4.8 -[address] 10^3/uL .8 [place] [address] [phone] Red Blood Count 4.44 10^6/uL 4.0-5.4 Hemoglobin [...] Cells % 0 Laboratory test finding 06/23/2013 [facility] Inr 0.86 Low 0.87-0.97 [address] [place] [address] [phone] Activated Partial Thrombo Time 30.7 seconds 22.18-37.18 Comp Metabolic Panel 06/23/2013 [facility] Sodium 136 mmol/L 133-145 [address] [place] [address] [phone] Potassium 4.3 mmol/L 3.5-5.0 Chloride 101 mmol/L [...] Egfr Non- 74.2 >60 Egfr 95.4 >60 55 Laboratory test 06/23/2013 [facility] Magnesium 2.1 mg/dL 1.7 -2.6 finding [address] [place] [address] [phone] Creatine Kinase 60 U/L 0-200 CKMB 06/23/2013 [facility] CKMB ng/mL 2.5 ng/mL 0.3-4.0 56 [address] [place] [address] [phone] Laboratory test 06/23/2013 [facility] Troponin I 0.03 ng/mL 0 -0.06 [address] [place] [address] [phone] TSH (Thyroid Stimulating Horm) 5.87 miu/mL High 0.34-5.60 C Reactive Protein 0.5 mg/dL Less than 0.5 Laboratory test 06/23/2013 [facility] Erythrocyte Sed 11 mm/Hr 0-[address] [place] [address] [phone] Laboratory test 06/01/2013 [facility] Lyme Disease Positive Negative [address] Serology [place], [place] [id number] [phone] Lyme Western 06/01/2013 [facility] Lyme Disease IgG Negative Negative Blot [address] [place] [address] [phone] Lyme Disease IgG Bands Present p41, kDa Lyme Disease IgM Ab WB Positive Negative Lyme Disease IgM Bands Present p41, p23, kDa Lyme Disease Interpretation See Comment 59 Laboratory test 09/09/2012 [facility] TSH (Thyroid 5.50 0.34- 5.60 [address] Stimulating MIU/[place] [address] Horm) [phone] Free T4 0.77 NG/ML 0.61-1.24 61 Lipid Profile 09/09/2012 [facility] Triglycerides 62 mg/dL 40 -200 (Trig/Chol/HDL) [address] [place], [place] [address] [phone] Cholesterol 170 mg/dL Less than 200 62 HDL Cholesterol 57 mg/dL 40-60 63 Cholesterol/HDL Ratio 3.0 AVERAGE 1-4.44 LDL Cholesterol 100.6 mg/dL High Less Than 100 Comp Metabolic Panel 09/09/2012 [facility] Sodium 137 mmol/L 133-[address] [place] [address] [phone] Potassium 4.5 mmol/L 3.5-5.0 Chloride 106 mmol/L [...] 1.9 1-3 Total Bilirubin 1.0 mg/dL 0.1-1.0 64 Alkaline Phosphatase 38 U/L 30-110 Alt 16 U/L 14-54 Ast 24 U/L 12-42 Egfr Non- 86.6 >60 Egfr 111.3 >60 65 Laboratory test 09/09/2012 [facility] CRP High 1.1 mg/L [address] [place] [address] [phone] Vitamin D, 25 09/09/2012 [facility] 25-Hydroxy Vitamin 6.3 ng/ mL Hydroxy [address] [address]2 [place] [address] [phone] 25-Hydroxy Vitamin D3 25 ng/mL 25-Hydroxy Vitamin D Total 31 ng/mL 67 Ua Routine 09/01/2012 [facility] Ua Specific Ovalo 1.005 Ua PH 7 Ua Color pale yellow Ua Appera clear Ua WBC neg Ua Protein neg Ua Glucose neg Ua Ketones neg Ua Bilirubin neg Ua Urobilinogen neg Ua Nitrite neg Ua Occult Blood Non hem trace Laboratory test 09/01/2012 [facility] Cytology RUN DATE: [address] 09/02/ <[place] [address] NOTE> [phone] Laboratory test 06/15/2012 [facility] TSH 5.43 MIU/ML 0.34- 5. finding [address] 60 [place] [address] [phone] Magnesium 2.1 mg/dL 1.7-2.6 Basic Metabolic Panel 06/15/2012 [facility] Sodium 137 mmol/L 135-[address] [place] [address] [phone] Potassium 4.3 mmol/L 3.5-5.0 Chloride 103 mmol/L 101-111 Co2 (Carbon Dioxide) 28.0 mmol/L 22-32 Anion Gap 6.0 mmol/L 2-11 69 Glucose 95 mg/dL 70-100 BUN 16 mg/dL 6-24 Creatinine 0.7 mg/dL 0.50-1.40 One Over Creatinine 1.42 BUN/Creatinine Ratio 22.9 High 8-20 eGFR Non- 86.9 > 60 eGFR 111.7 > 60 70 Laboratory test 06/15/2012 [facility] Calcium 9.3 mg/dL 8.1- 9.[address] [place] [address] [phone] Laboratory test 06/10/2011 [facility] TSH 4.68 MIU/ML 0.34- 5.[address] [place] [address] [phone] Thyroxine Free 0.86 ng/dL 0.61-1.24 Laboratory test 06/10/2011 [facility] Cytology <SEE [address] NOTE> [place] [address] [phone] 1 *Ascorbic acid is present which may interfere with detection of blood. 2 Because ethnic data is not always [...] 5 Kidney failure <15 (or dialysis) 3 Because ethnic data is not always [...] 5 Kidney failure <15 (or dialysis) 5 [MG] affected by ICTERUS 6 Because ethnic data is not always [...] - FDP greater than 20 ug/ml 8 >100 to <200 pg/mL: likely compensated congestive heart failure (CHF) 200 to 400 pg/mL: likely moderate CHF >400 pg/mL: likely moderate to severe CHF 9 [facility] Severe Sepsis and Septic Shock Management Bundle Measure requires all lactic acids initially measuring >2.0 mmol/L be repeated. 10 Because ethnic data is not always [...] 5 Kidney failure <15 (or dialysis) 11 [facility] Severe Sepsis and Septic Shock Management Bundle Measure requires all lactic acids initially measuring >2.0 mmol/L be repeated. 12 Because ethnic data is not always [...] 5 Kidney failure <15 (or dialysis) 13 [facility] Severe Sepsis and Septic Shock Management Bundle Measure requires all lactic acids initially measuring >2.0 mmol/L be repeated. 14 >100 to <200 pg/mL: likely compensated congestive heart failure (CHF) 200 to 400 pg/mL: likely moderate CHF >400 pg/mL: likely moderate to severe CHF 15 Because ethnic data is not always [...] 5 Kidney failure <15 (or dialysis) 16 Because ethnic data is not always [...] 5 Kidney failure <15 (or dialysis) 17 [place] Severe Sepsis and Septic Shock Management Bundle Measure requires all lactic acids initially measuring >2.0 mmol/L be repeated. 18 Because ethnic data is not always readily [...] 15-29 5 Kidney failure <15 (or dialysis) 19 Please note: The following may produce a false positive D Dimer test: - Rheumatoid factor greater than 60 IU/ml - Plasma hemoglobin greater than 0.05 gm/dl - Bilirubin greater than 50 mg/dl - Lipids greater than 1000 mg/dl - FDP greater than 20 ug/ml 20 Because ethnic data is not always [...] 5 Kidney failure <15 (or dialysis) 21 Desirable <150 Borderline high 150-199 High 200-499 Very High >500 22 Desirable <200 Borderline high 200-239 High >239 23 Low <40 Desirable: 40-60 High: >60 24 Desirable: <100 mg/dL Near Optimal: 100-129 mg/dL Borderline High: 130-159 mg/dL High: 160-189 mg/dL Very High: >189 mg/dL 25 SEE RESULT BELOW Name: NICKY MOORE : [address]: Zulay Kraus MD Acct: [id number] Unit: [id number] AGE: 61 Location: [facility] Re05/27/17 SEX: F Status: REG REF SPEC: [id number] CHRIS: 05/27/17-[address] [facility] [address]: Zulay Kraus MD REQ: [id number] RECD: 05/27/17 STATUS: SOUT _ ORDERED: TP IMAGE ANAL, HPV 16/18 GENE COMMENTS: [id number] FINAL DIAGNOSIS Negative for Intraepithelial lesion or [...] was evaluated with the assistance of the Windlab SystemsPrep Test Imaging System. Due to cytologic findings at the coal gasification technician microscope, comprehensive manual rescreening by a Online Producer may be required. The Pap Smear is [...] performed at Main Lab DEPARTMENT OF PATHOLOGY, [address] [place] [address] Uziel South M.D. Director [facility] # [id number] 26 Because ethnic data is not always readily [...] 15-29 5 Kidney failure <15 (or dialysis) 27 SEE RESULT BELOW Name: NICKY MOORE : [address]: Gorge Gipson NP Acct: [id number] Unit: [id number] AGE: 60 Location: [facility] Re08/21/16 SEX: F Status: REG REF SPEC: [id number] CHRIS: 08/21/16-[address] [facility] [address]: Gorge Gipson SECOND LANGUAGE TUTOR REQ: [id number] RECD: 08/21/16 STATUS: SOUT _ ORDERED: THIN PREP NON G COMMENTS: [id number] FINAL DIAGNOSIS Urine, voided: --Negative for malignant cells. URINE VOID GROSS DESCRIPTION 7.5 mls of clear pale yellow voided urine. Signed (signature on file) Gisela Ortega MD 1355 END OF REPORT * ML=Testing performed at Main Lab DEPARTMENT OF PATHOLOGY, [address] [place] [address] Uziel South M.D. Director [facility] # [id number] 28 SEE RESULT BELOW Name: NICKY MOORE : [address]: Gorge Gipson SECOND LANGUAGE TUTOR Acct: [id number] Unit: [id number] AGE: 60 Location: [facility] Re08/21/16 SEX: F Status: REG REF SPEC: [id number] CHRIS: 08/21/16-[address]: Gorge Gipson NP REQ: [id number] RECD: 08/21/16 STATUS: COMP _ SOURCE: URINE SPDESC: ORDERED: Urine Culture COMMENTS: [id number] Procedure Result Reported Site Urine Culture Final 08/22/16- 1607 ML No Growth (<1,000 CFU/mL) * [facility] - [facility] . END OF REPORT * ML=Testing performed at Main Lab DEPARTMENT OF PATHOLOGY, [address] [place] [address] Uziel South M.D. Director [facility] # [id number] 29 SEE RESULT BELOW Name: NICKY MOORE : [address]: Darian Agosto MD Acct: [id number] Unit: [id number] AGE: 60 Location: [place] [address] Re08/21/16 Dis: 08/25/16 SEX: F Status: DIS IN SPEC: [id number] CHRIS: 08/21/[address] [facility] [address]: Dick Rice MD REQ: [id number] RECD: 08/21/16 STATUS: JOSTIN COBURN DR: Zulay Kraus MD _ SOURCE: BLOOD,VENO SPDESC: ORDERED: Blood Cult Procedure Result Reported Site Aerobic Culture Bottle Final 08/26/16- 1939 ML No Growth Day 5 Anaerobic Culture Bottle Final 08/26/16- 1939 ML No Growth Day 5 * ML - [facility] . END OF REPORT * ML=Testing performed at Main Lab DEPARTMENT OF PATHOLOGY, [address] [place] [address] Uziel South M.D. Director [facility] # [id number] 30 Acute inflammation: >10.00 31 Because ethnic data is not always [...] 5 Kidney failure <15 (or dialysis) 32 [facility] Severe Sepsis and Septic Shock Management Bundle Measure requires all lactic acids initially measuring >2.0 mmol/L be repeated. 33 Because ethnic data is not always [...] 5 Kidney failure <15 (or dialysis) 34 Because ethnic data is not always [...] 5 Kidney failure <15 (or dialysis) 36 REFERENCE RANGE: <1:8 INTERPRETIVE CRITERIA: <1:8 Antibody [...] its performance characteristics have been determined by [employer]. Performance characteristics refer to the analytical performance of the test. Test Performed by: [employer] [address] [place] [address] 37 RESULT: Results suggest past infection. ADDITIONAL INFORMATION [...] primary infection with EBV. Test Performed by: [address] [address] Lead Instructor/Flight Attendant: Yariel Alonso II, M.D., Ph.D. 38 Because ethnic data is not always [...] 0.03 ng/mL Not supportive of diagnosis of [place] 0.03 - 0.50 ng/mL Indeterminate: suggest serial studies if clinically indicated. Greater than 0.5 ng/mL Consistent with diagnosis of [place] 40 Because ethnic data is not always readily [...] 15-29 5 Kidney failure <15 (or dialysis) 41 Because ethnic data is not always [...] 5 Kidney failure <15 (or dialysis) 42 REFERENCE VALUE 25-HYDROXY D TOTAL (D2+D3) Optimum levels in the healthy population are 20-50, patients with bone disease may benefit from higher levels within this range. Test Performed by: [facility] - [address] [address] Lead Instructor/Flight Attendant: Nba Park M.D. 43 RUN DATE: 10/21/14 [facility] LAB LIVE PAGE 1 RUN TIME: [address] [place] [address] Specimen Inquiry Name: NICKY MOORE : [address]: Surya De Guzman MD Acct: [id number] Unit: [id number] AGE: 59 Location: [facility] Re10/20/14 SEX: F Status: DEP ER SPEC: [id number] CHRIS: 10/20/14-[address] [facility] [address]: Surya De Guzman MD REQ: [id number] RECD: 10/21/14-1216 STATUS: JOSTIN COBRUN DR: Zulay Kraus MD _ SOURCE: [facility]: ORDERED: Rapid Flu A B COMMENTS: Verbal to VONNIE ([facility]) by [id number] at 1445 on 10/21/14. Results read back accurately. QUERIES: [employer] Number [id number] Procedure Result Verified Site Rapid Influenza A [...] performed at Main Lab DEPARTMENT OF PATHOLOGY, [address] [place] [address] Uziel South M.D. Director [facility] # [id number] 44 Potassium reference range changed effective 10/01/14 [...] failure <15 (or dialysis) 46 RUN DATE: 10/18/14 [facility] LAB LIVE PAGE 1 RUN TIME: [address] [place] [address] Specimen Inquiry Name: TERESANICKY Roshan : [address]: Zulay Kraus MD Acct: [id number] Unit: [id number] AGE: 59 Location: [facility] Re10/17/14 SEX: F Status: REG REF SPEC: [id number] CHRIS: 10/17/14-[address] [facility] [address]: Zulay Kraus MD REQ: [id number] RECD: 10/17/14-1528 STATUS: SOUT _ ORDERED: IMAGE ANALYSIS, HPV/Thin [...] was evaluated with the assistance of the [employer] Test Imaging System. Due to cytologic findings at the coal gasification technician microscope, comprehensive manual rescreening by a Online Producer may be required. The Pap Smear is [...] performed at Main Lab DEPARTMENT OF PATHOLOGY, [address] [place] [address] Uziel South M.D. Director [facility] # [id number] The high-risk HPV types detected by the assay include: 16, 18, 31, 33, 35, 39, 45, 51, 52, 56, 58, 59, 66, and 68. 48 Reference Range and Interpretation: TnI (ng/mL) Interpretation Less Than 0.03 ng/mL Not supportive of diagnosis of [place] 0.03 - 0.50 ng/mL Indeterminate: suggest serial studies if clinically indicated. Greater than 0.5 ng/mL Consistent with diagnosis of [place] 49 Because ethnic data is not always [...] 5 Kidney failure <15 (or dialysis) 50 HDL Interpretation: Undesirable: High Risk: Less than 40 mg/dL Desirable: Low Risk: Greater than 60 mg/dL 51 LDL Interpretation: Low Risk Optimal Level: LDL Less than 100 mg/dL Near or Above Optimal: LDL 100-129 mg/dL Borderline High Risk: LDL 130-159 mg/dL High Risk: LDL 160-189 mg/dL Very High Risk: LDL Greater than 189 mg/dL 52 Because ethnic data is not always readily [...] 15-29 5 Kidney failure <15 (or dialysis) 53 Less Than 1.0......Low Risk of Cardiovascular Disease 1.0-3.0............Medium Risk (<2 Fold Increase) Greater Than 3.0...High Risk (Approximately 2-Fold Increase) 54 RUN DATE: 09/06/13 [facility] LAB LIVE PAGE 1 RUN TIME: [address] [place] [address] Specimen Inquiry Name: NICKY MOORE : [address]: Fern Jean MD Acct: [id number] Unit: [id number] AGE: 57 Location: [facility] Re09/05/13 SEX: F Status: REG REF SPEC: [id number] CHRIS: 09/05/13-[address] [facility] [address]: Fern Jean MD REQ: [id number] RECD: 09/05/13-1548 STATUS: SOUT _ ORDERED: IMAGE [...] yrs ago Signed (signature on file) Alaina Ghislaine CT (ASCP) 09/06/13 1152 This Pap test was evaluated with the assistance of the Affaredelgiornop Test Imaging System. Due to cytologic findings at the coal gasification technician microscope, comprehensive manual rescreening by a Online Producer may be required. The Pap Smear is [...] performed at Main Lab DEPARTMENT OF PATHOLOGY, [address] [place] [address] Uziel South M.D. Director [facility] Permit #[id number] 55 Because ethnic data is not always readily [...] 15-29 5 Kidney failure <15 (or dialysis) 56 CKMB interpretation should be made in conjunction with clinical symptoms, patient history and EKG changes. 57 Reference Range and Interpretation: TnI (ng/mL) Interpretation Less Than 0.06 ng/mL Not supportive of diagnosis of [place] 0.06 - 0.50 ng/mL Indeterminate: suggest serial studies if clinically indicated. Greater than 0.5 ng/mL Consistent with diagnosis of [place] 58 Not diagnostic. Supplemental testing ordered by reflex. Test Performed by: [place] [address] Lead Instructor/Flight Attendant: Louie Burkett III, M.D. 59 Consistent with early infection with Borrelia burgdorferi. [...] screening test (e.g., EIA). Test Performed by: [address] [address] Lead Instructor/Flight Attendant: Louie Burkett III, M.D. 60 FASTING 61 FASTING 62 Desirable: Less than 200 MG/DL Borderline-High Risk: 200-239 MG/DL High-Risk: 240 MG/DL and over 63 HDL Interpretation: Undesirable: High Risk: Less than 40 MG/DL Desirable: Low Risk: Greater than 60 MG/DL 64 A metabolite of Naproxen, O-desmethylnaproxen, has been shown to interfere with the [place] method for measuring total bilirubin. Samples from patients who have taken Naproxen have shown spurious elevation in total bilirubin levels. 65 Because ethnic data is not always readily [...] 15-29 5 Kidney failure <15 (or dialysis) 66 Less Than 1.0......Low Risk of Cardiovascular Disease 1.0-3.0............Medium Risk (<2 Fold Increase) Greater Than 3.0...High Risk (Approximately 2-Fold Increase) 67 -- REFERENCE VALUE -- 25-HYDROXY D TOTAL (D2+D3) Optimum levels in the normal population are 25-80 Test Performed by: [place] [address] Lead Instructor/Flight Attendant: Louie Burkett III, M.D. R 68 RUN DATE: 09/02/12 [facility] LAB LIVE PAGE 1 RUN TIME: [address] [place] [address] Specimen Inquiry Name: NICKY MOORE : [address]: Fern Jean MD Acct: [id number] Unit: [id number] AGE: 56 Location: [facility] Re09/01/12 SEX: F Status: REG REF SPEC : [id number] RECD: 09/02/12 STATUS: ELBA HAPRER NUM: [id number] CHRIS: 09/01/[address] [facility] [address]: Miranda LIANG,Fern ENTERED: 09/02/12 SP TYPE: CYTOLOGY OTHR DR: [...] (signature on file) DESTIN Ledesma (ASCP) 09/02 1808 This Pap test was evaluated with the assistance of the Windlab SystemsPrep Test Imaging System. Due to cytologic findings at the coal gasification technician microscope, comprehensive manual rescreening by a Online Producer may be required. The Pap Smear is [...] performed at Main Lab DEPARTMENT OF PATHOLOGY, [address] [place] [address] Uziel South M.D. Director [facility] Permit #[id number] 69 Anion gap measurement may be of limited value in the presence of any alkalosis, especially in a combined acid base disorder. . 70 Because ethnic data is not always readily [...] 15-29 5 Kidney failure <15 (or dialysis) 71 ---- RUN DATE: 06/11/11 [facility] NMI LIVE PAGE 1 RUN TIME: 1456 Specimen Inquiry RUN USER: INTERFACE -- Name: NICKY MOORE Status: REG REF Re06/10/11 Age/Sex: 55/F Unit#: [id number] [facility] -- Specimen: [id number] SOUT Spec Date: 06/10/[address] [facility] [address]: Fern Jean MD Spec Type: CYTOLOGY [...] JURADO(ASCP) 06/11/11 1456 -- DEPARTMENT OF PATHOLOGY, [address] [place] [address] [facility] Permit #[id number] Uziel South M.D. Director Ally Hooks M.D. Band Leader sam -- Procedures Date Code Description Status 02/10/2019 49705 ECHO Transthoracic, Real-Time 2D With Doppler And Completed Color Flow 02/10/2019 78843 ECHO Transthoracic, Real-Time 2D With Doppler And Completed Color Flow 01/25/2019 69115 EKG Tracing & Interpretation Completed 10/13/2018 77112 EKG, Interpretation Only Completed 10/13/2018 44371 Cardioversion Completed 10/01/2018 48059 EKG Tracing & Interpretation Completed 09/14/2018 30918 Moderate Sedation Services; Same Phys Intl 15 Mins; PT Completed >=5 Years 09/14/2018 11625 Cardioversion Completed 09/13/2018 68014 EKG Tracing & Interpretation Completed 09/13/2018 38758 EKG Tracing & Interpretation Completed 09/06/2018 81113 Holter Monitor Review (24 hr) review & gisele only Completed 08/27/2018 20859 ECG Monitor/Recording W/Visual Superimposition Completed Scanning 08/27/2018 41400 EKG Tracing & Interpretation Completed 08/19/2018 02872 EKG, Interpretation Only Completed 08/19/2018 48227 Cardioversion Completed 08/10/2018 50045 EKG, Interpretation Only Completed 08/10/2018 97306 Cardioversion Completed 03/08/2018 [id number] Mammogram Completed 02/12/2018 72000 Echocardiography, Transesophageal, Real Time W/Image Completed 2D W/W/O M-M 02/12/2018 24596 Pulse Wave/Continuous-Interp.RPT Completed 02/12/2018 41862 Color Flow Doppler/Interp & Reprt Completed 02/12/2018 56793 Moderate Sedation Services; Same Phys Intl 15 Mins; PT Completed >=5 Years 02/12/2018 16968 Moderate Sedation Services; Same Phys Each Additional Completed 15 Mins 02/04/2018 85153 ECHO Transthorasic Realtime 2D W Doppler & Color Flow Completed Hosp 11/18/2017 [id number] Bone Mineral Density Test Completed 11/17/2017 57193 ECHO Transthorasic Realtime 2D W Doppler & Color Flow Completed Hosp 11/09/2017 97146 EKG Tracing & Interpretation Completed 10/14/2017 66457 Moderate Sedation Services; Same Phys Intl 15 Mins; PT Completed >=5 Years 10/14/2017 87654 Cardioversion Completed 02/17/2017 [id number] Mammogram Completed 11/17/2016 78325 EKG Tracing & Interpretation Completed 08/24/2016 69407 EKG, Interpretation Only Completed 08/23/2016 94187 EKG, Interpretation Only Completed 02/15/2016 [id number] Mammogram Completed 01/16/2016 31849 Polysomnography Sleep Staging 4+ Parameters Completed 12/03/2015 75488 EKG Tracing & Interpretation Completed 10/10/2015 50482 EKG Tracing & Interpretation Completed 03/19/2015 50330 ECHO Transthorasic Realtime 2D W Doppler & Color Flow Completed Hosp 12/14/2014 74388 EKG Tracing & Interpretation Completed 10/31/2014 [id number] Bone Mineral Density Test Completed 10/31/2014 [id number] Mammogram Completed 09/29/2014 61940 EKG, Interpretation Only Completed 09/13/2014 59748 EKG Tracing & Interpretation Completed 03/06/2014 56133 ECHO Transthorasic Realtime 2D W Doppler & Color Flow Completed Hosp 11/07/2013 [id number] Mammogram Completed 09/05/2013 17790 EKG Tracing & Interpretation Completed 07/22/2013 25231 Myocardial Perfusion Imaging Tomographic (Spect) Completed Multiple Studies 07/22/2013 44658 Stress Test Completed 07/19/2013 27957 Stress Test Completed 07/13/2013 75887 Holter Monitor Review (24 hr)dr hernandez & gisele only Completed 07/11/2013 50250 EKG Tracing & Interpretation Completed 07/05/2013 48558 ECHO Transthorasic Realtime 2D W Doppler & Color Flow Completed Hosp 06/23/2013 23186 EKG Tracing & Interpretation Completed 09/09/2012 21603604 Mammogram Completed 09/09/2012 124434403 Bone Mineral Density Test Completed 06/15/2012 65547 EKG Tracing & Interpretation Completed 07/01/2011 12684508 Colonoscopy Completed 04/15/2011 [id number] Mammogram Completed 03/19/2011 33440 EKG Tracing & Interpretation Completed 02/07/2010 84521124 Mammogram Completed 02/07/2010 532724246 Bone Mineral Density Test Completed 01/30/2010 89445 EKG Tracing & Interpretation Completed 01/05/2009 57503 EKG Tracing & Interpretation Completed 12/27/2007 87554 EKG Tracing & Interpretation Completed 12/27/2007 52541 EKG Tracing & Interpretation Completed 11/24/2006 22475 EKG Tracing & Interpretation Completed Encounters Type Date Location Provider Dx Diagnosis Office Visit 01/27/2019 Orthopedic Ezequiel Call, M84.374D Stress fracture, 9:30a Services Laci Lugo right foot, subs C.M.A. for fx w routn heal Office Visit 01/25/2019 [facility] Arlen Henderson, I48.0 Paroxysmal atrial 9:45a Of Latrell Lugo fibrillation Q87.410 Marfan's syndrome with aortic dilation I34.0 Nonrheumatic mitral (valve) insufficiency Office Visit 01/04/2019 9:15a Orthopedic Ezequiel Haney79.671 Pain in right Services Of Brittney Call foot C.M.A. Office Visit 12/02/2018 10:30a Orthopedic Ezequiel M79.671 Pain in right Services Of Brittney aCll foot C.M.A. Office Visit 11/16/2018 11:10a [facility] Internal [place] Z00.00 Encntr for Medicine - Brittney Kraus general adult [facility] medical exam w/o abnormal findings M81.0 Age-related osteoporosis w/o current pathological fracture M79.671 Pain in right foot Z12.11 Encounter for screening for malignant neoplasm of colon Office Visit 11/09/2018 10:30a [facility] Maria C S. I48.0 Paroxysmal atrial Of Weaver Hand Foster, N.P. 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 I48.0 Paroxysmal atrial Of Weaver Hand Foster, N.P. fibrillation R00.0 Tachycardia, unspecified R94.31 Abnormal electrocardiogram [ECG] [EKG] Q87.410 Marfan's syndrome with aortic dilation Office Visit 09/13/2018 4:40p [facility] Arlen Henderson I48.92 Unspecified Of Weaver Hand M.D. atrial flutter R00.0 Tachycardia, unspecified Office Visit 08/27/2018 1:30p [facility] Maria C S. I48.0 Paroxysmal atrial Of Weaver Hand Foster, N.P. fibrillation I77.810 Thoracic aortic ectasia Z79.01 senior living (current) use of anticoagulants Office Visit 08/18/2018 [facility] Lianna I48.91 Unspecified atrial 10:32a Assfatimah welsh DO fibrillation Hospitalists Office Visit 08/18/2018 [facility] Arlen Henderson, I48.91 Unspecified atrial 12:58p Of Latrell M.D. fibrillation Office Visit 08/10/2018 [facility] Marquita Swain I48.91 Unspecified atrial 10:37a fatimah Evans N.P. fibrillation Hospitalists Z86.79 Personal history of other diseases of the circulatory system I77.810 Thoracic aortic ectasia M85.80 Ot disrd of bone density and structure, unspecified site I34.0 Nonrheumatic mitral (valve) insufficiency E03.9 Hypothyroidism, unspecified Q87.40 Marfan's syndrome, unspecified Office Visit 08/10/2018 12:39p [facility] Edson Vogt I48.0 Paroxysmal atrial Of Latrell Smith MJanD. 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 and ligaments of [place] oth prt neck, init encntr Office Visit 07/29/2018 [facility] Internal Henry Jesse, M25.511 Pain in right 10:40a Medicine - [employer]ANG[employer]OR shoulder [place] Office Visit 01/19/2018 [facility] Meir Bone, Q87.40 Marfan's syndrome, 2:40p Cardiology Of THADDEUS Lugo, unspecified [facility] AT [facility] Office Visit 11/09/2017 [facility] Meir Bone, I48.0 Paroxysmal atrial 1:20p Cardiology Of THADDEUS Lugo, fibrillation [facility] AT [facility] Q87.40 Marfan's syndrome, unspecified I34.1 Nonrheumatic mitral (valve) prolapse Office Visit 10/20/2017 10:30a [facility] Internal [place] I48.0 Paroxysmal atrial Ninfa Kraus M.D. fibrillation [facility] E03.9 Hypothyroidism, unspecified Z23 Encounter for immunization Office Visit 10/14/2017 [facility] Yuriy I48.91 Unspecified atrial 8:30a Assoc,fatimah Bunch M.D. fibrillation Hospitalists Q87.40 Marfan's syndrome, unspecified E03.9 Hypothyroidism, unspecified Office Visit 10/14/2017 [facility] Arlen Henderson, I48.0 Paroxysmal atrial 11:59a Of Latrell Lugo fibrillation Office Visit 10/13/2017 [facility] Berna I48.91 Unspecified atrial 8:29a Assoc,fatimah Madison D.O. 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 Office Visit 05/27/2017 10:30a [facility] Internal [place] M81.0 Age-related Medicine - Brittney Kraus osteoporosis w/o [place] current pathological fracture E87.6 Hypokalemia E83.42 Hypomagnesemia R21 Rash and other nonspecific skin eruption Z13.220 Encounter for screening for lipoid disorders Z00.01 Encounter for general adult medical exam w abnormal findings Z12.4 Encounter for screening for malignant neoplasm of cervix H61.22 Impacted cerumen, left ear Office Visit 11/17/2016 3:00p [facility] Meir Bone, Q87.40 Marfan's Of [facility] AT [facility] MJuan, FACC, syndrome, FSCAI unspecified I34.0 Nonrheumatic mitral (valve) insufficiency I48.0 Paroxysmal atrial fibrillation I34.1 Nonrheumatic mitral (valve) prolapse Office Visit 09/09/2016 9:30a Surgical Darian Montero K35.3 Acute appendicitis [facility] Brittney Agosto with localized peritonitis Office Visit 08/25/2016 1:41p [facility] Ezequiel I48.0 Paroxysmal atrial Assoc,fatimah Wells M.D. fibrillation Hospitalists K35.3 Acute appendicitis with localized peritonitis E03.9 Hypothyroidism, unspecified Office Visit 08/24/2016 4:36p [facility] Viktor Romo I48.0 Paroxysmal atrial Of [facility] Pedro, DO fibrillation [facility] Office Visit 08/24[facility]2016 [facility] Paroxysmal atrial Assoc,fatimah Lovelace NP fibrillation Hospitalists K35.3 Acute appendicitis with localized peritonitis E03.9 Hypothyroidism, unspecified [facility]0 Paroxysmal atrial 1:39p Assoc,fatimah Lovelace [employer] fibrillation Hospitalists K35.3 Acute appendicitis with localized peritonitis E03.9 Hypothyroidism, unspecified Office Visit 08/21/2016 2:00p [facility] Internal Gorge Thai, R10.31 Right lower Medicine - [place] [employer] quadrant pain Rd R35.0 Frequency of micturition Office Visit 02/07/2016 10:45a Pulmonology And Yudi G47.33 Obstructive sleep Sleep Services Of MD Liban apnea (adult) [facility] (pediatric) Office Visit 02/05/2016 11:10a [facility] Internal [place] Z00.00 Encntr for Medicine Milly Kraus M.D. general adult [place] medical exam w/o abnormal findings Z12.31 Encntr screen mammogram for malignant neoplasm of breast E83.42 Hypomagnesemia E87.6 Hypokalemia Z11.59 Encounter for screening for other viral diseases Office Visit 12/18/2015 10:15a Pulmonology And Yudi G47.9 Sleep disorder, Sleep Services Of MD Liban unspecified [facility] Office Visit 12/03/2015 3:20p [facility] Meir Bone, I48.0 Paroxysmal atrial Of [facility] AT [facility] MJuan, FAC, fibrillation FSCAI I34.0 Nonrheumatic mitral (valve) insufficiency Q87.40 Marfan's syndrome, unspecified Office Visit 10/22/2015 11:10a [facility] Internal [place] B34.9 Viral infection, Ninfa Kraus M.D. unspecified [place] I48.0 Paroxysmal atrial fibrillation R74.0 Nonspec elev of levels of transamns & lactic acid dehydrgnse E87.6 Hypokalemia E83.42 Hypomagnesemia R06.83 Snoring Office Visit 10/19/2015 [facility] Yuriy I48.91 Unspecified atrial 10:43a Assocfatimah M.D. fibrillation Hospitalists Q87.40 Marfan's syndrome, unspecified I95.9 Hypotension, unspecified Office Visit 10/18/2015 [facility] Danial I48.91 Unspecified 10:42a Assocfatimah N.P. atrial Hospitalists fibrillation Q87.40 Marfan's syndrome, unspecified I95.9 Hypotension, unspecified Office Visit 10/18/2015 3:45p [facility] Arlen Henderson, I48.0 Paroxysmal atrial Cardiology Of Brittney fibrillation [facility] Office Visit 10/10/2015 3:40p [facility] Meir Bone, I34.0 Nonrheumatic mitral Cardiology Of Brittney, [facility], (valve) [facility] AT [facility] FSCAI insufficiency I48.0 Paroxysmal atrial fibrillation I77.810 Thoracic aortic ectasia Office Visit 09/20/2015 [facility] Internal [place] B30.1 Conjunctivitis due 11:50a Ninfa Kraus M.D. to adenovirus [place] Office Visit 02/19/2015 [facility] Jd Dennis, 726.10 Bursae & Tendon 9:45a Services Of Brittney Disorders Shoulder C.M.A. Region Unspec Office Visit 02/05/2015 Orth[facility] Jd Young, 840.4 Sprains & Strains 11:00a Services Of Brittney Rotator Cuff C.M.A. (Capsule) Office Visit 12/14/2014 [facility] Meir Bone, 427.31 Atrial Fibrillation 3:20p Cardiology Of Brittney, THADDEUS, Weaver Hand AT [facility] FSCAI 424.0 Mitral Valve Disorder 759.82 Marfan Syndrome Office Visit 11/07/2014 10:50a [facility] Internal [place] 733.01 Osteoporosis Medicine Milly Kraus M.D. Senile [place] 786.2 Cough Office Visit 10/17/2014 9:10a [facility] Internal [place] V70.0 Examination Medicine - Brittney Kraus [facility] Routine AT Health Care Facility V76.10 Screening For Malignant Neoplasm Breast 244.9 Hypothyroidism Other Unspec 733.90 Bone & Cartilage Disorder Unspec 840.4 Sprains & Strains Rotator Cuff (Capsule) V04.81 Need For Prophylactic Vaccination & Inoculation/Influenza V76.2 Screening Malignant Neoplasm Cervix V06.1 Vbbqgeerfo-Tpbipck-Jzbtjjrz Combined (DTaP) V72.31 Routine Band Leader Examination Office Visit 09/30/2014 10:58a [place] 427.31 Atrial Cardiology Brittney Becker Fibrillation 759.82 Marfan Syndrome Office Visit 09/30/2014 [facility] 427.31 Atrial 12:15p Assfatimah welsh M.D. Fibrillation Hospitalists 244.9 Hypothyroidism Other Unspec 759.82 Marfan Syndrome Office Visit 09/29/2014 [facility] 427.31 Atrial 12:14p fatimah Evans M.D. Fibrillation Hospitalists 244.9 Hypothyroidism Other Unspec 759.82 Marfan Syndrome Office Visit 09/29/2014 12:29p [facility] Jared Chaparro 427.31 Atrial Of Latrell Garcia M.D., Fibrillation FAC, FASNC 424.0 Mitral Valve Disorder Office Visit 09/13/2014 2:20p [facility] Meir Bone 427.31 Atrial Of Latrell AT [facility] Brittney, FACC, Fibrillation FSCAI 424.0 Mitral Valve Disorder Office Visit 03/21/2014 11:40a [facility] Internal Fern Miranda, 088.81 Lyme Disease Medicine - M.D., FACP [place] 300.00 Anxiety State Unspec Office Visit 09/05/2013 9:20a [facility] Internal Fern Jean, 780.79 Malaise And Medicine - M.D., FACP Fatigue Other [place] V70.0 Examination General Medical Routine AT Health Care Facility V72.31 Routine Band Leader Examination V76.10 Screening For Malignant Neoplasm Breast 424.0 Mitral Valve Disorder 427.31 Atrial Fibrillation 244.9 Hypothyroidism Other Unspec 759.82 Marfan Syndrome V04.81 Need For Prophylactic Vaccination & Inoculation/Influenza 272.0 Hypercholesterolemia Pure v76.2 Screening Malignant Neoplasm Cervix Office Visit 08/04/2013 9:15a [facility] Meir Bone, 427.31 Atrial Of [facility] M.Torie, FAC, Fibrillation FSCAI 424.0 Mitral Valve Disorder Office Visit 07/11/2013 10:30a [facility] Meir Bone, 424.0 Mitral Valve Of [facility] AT [facility] M.Torie, FACC, Disorder FSCAI Office Visit 06/29/2013 10:00a [facility] Internal Fern Jean, 427.31 Atrial Medicine - M.D., FACP Fibrillation [place] 244.9 Hypothyroidism Other Unspec Office Visit 06/23/2013 8:40a [facility] Internal Fern Jean, 786.59 Pain Chest Medicine - M.D., FACP Other [place] 427.31 Atrial Fibrillation Office Visit 06/01/2013 10:20a [facility] Internal Fern Jean, 088.81 Lyme Disease Medicine - M.D., FACP [place] Office Visit 09/01/2012 1:20p [facility] Internal Fern Jean, V70.0 Examination Medicine - M.D., FACP General Medical [place] Routine AT Health Care Facility V72.31 Routine Band Leader Examination V76.10 Screening For Malignant Neoplasm Breast 244.9 Hypothyroidism Other Unspec 759.82 Marfan Syndrome 733.90 Bone & Cartilage Disorder Unspec 300.00 Anxiety State Unspec V04.81 Need For Prophylactic Vaccination & Inoculation/Influenza Office Visit 07/05/2012 11:00a [facility] Internal Oanh Bateman, 300.00 Anxiety State Medicine - M.D. Unspec [place] Office Visit 06/15/2012 11:20a [facility] Internal Oanh Bateman, 759.82 Marfan Syndrome Medicine - Brittney [place] 244.9 Hypothyroidism Other Unspec 785.1 Palpitations 300.00 Anxiety State Unspec Office Visit 06/10/2011 2:20p DO Not Use Fern Jean, 759.82 Marfan Syndrome Edy Lugo, FACP 477.9 Rhinitis Allergic Cause Unspec V72.31 Routine Band Leader Examination V70.0 Examination General Medical Routine AT Health Care Facility 244.9 Hypothyroidism Other Unspec Office Visit 03/19/2011 2:15p DO Not Use Fernprosper Jean, 366.00 Cataract Edy Lugo, FACP Nonsenile Unspec 759.82 Marfan Syndrome V72.84 Examination Preoperative Unspec V76.12 Screening Mammogram Chvaa Hanson Other Office Visit 06/25/2010 4:15p DO Not Use Fern Jean, 692.6 Dermatitis Edy Lugo, FACP Contact Due To Plants (Except Food) Office Visit 02/27/2010 11:00a DO Not Use Fern Jean, 733.90 Bone & Cartilage Edy Lugo, FACP Disorder Unspec Office Visit 01/30/2010 9:15a DO Not Use Fernprosper Jean, V72.31 Routine Band Leader Edy Lugo, FACP Examination 759.82 Marfan Syndrome V04.81 Need For Prophylactic Vaccination & Inoculation/Influenza Office Visit 07/31/2009 DO Not Use Francia Lancaster, 692.6 Dermatitis 3:00p Edy N.P. Contact Due To Plants (Except Food) Office Visit 02/01/2009 DO Not Use Fernprosper Jean, 716.99 Arthropathy 2:30p Edy Lugo, FACP Unspec Multiple Sites 759.82 Marfan Syndrome Office Visit 01/05/2009 1:15p DO Not Use Fernprosper Jean, V72.31 Routine Band Leader Edy Lugo, FACP Examination 719.40 Pain Joint Site Unspec 759.82 Marfan Syndrome 244.9 Hypothyroidism Other Unspec V04.81 Need For Prophylactic Vaccination & Inoculation/Influenza Office Visit 05/02/2008 DO Not Use Fernprosper Jean, V07.8 Other Unspecified 10:45a Edy Lugo, FACP Prophylactic Or Treatment Measure Office Visit 02/07/2008 DO Not Use Fern Miranda, 733.90 Bone & Cartilage 11:15a Edy Lugo, FACP Disorder Unspec Office Visit 12/27/2007 DO Not Use Fern Miranda, V72.31 Routine Band Leader 10:45a Edy Lugo, FACP Examination 733.90 Bone & Cartilage Disorder Unspec 244.9 Hypothyroidism Other Unspec 759.82 Marfan Syndrome 272.0 Hypercholesterolemia Pure Office Visit 11/24/2006 11:30a DO Not Use Fern Miranda, V72.31 Routine Band Leader Edy Lugo, FACP Examination V04.81 Need For Prophylactic Vaccination & Inoculation/Influenza Office Visit 09/15/2006 2:15p DO Not Use Fern Miranda, 466.0 Bronchitis Acute Edy Lugo, FACP Plan of Treatment Future Appointment(s):03/24/2019 9:30 am - Ezequiel Call M.D. at [facility]03/03/2019 10:50 am - Zulay Kraus M.D. at [facility] Internal Medicine - [place]/28/2019 - Ezequiel Call M.D.I83.10 Varicose veins of unspecified lower extremity with inflammatFollow up:4-5 pthdmC29.374D Stress fracture, right foot, subsequent encounter for fractu
--- OUTSIDE RECORDS SUMMARY | 2019-03-12 20:31 | XMS REPORT | Continuity of Care Document ---
:1955 External Reference #:[id number] Author Name Radha Oliveros Care Team Providers Name Role Phone Zulay Kraus MD Primary Care Physician Unavailable Payers Date Identification Numbers Payment Provider Subscriber Policy Number: [id number] [facility] Carrie Moore PayID: [id number] [address] [place] [address] Advance Directives Description No Information Available Problems Date Description Provider Status Onset: 03/17/2011 Marfan's syndrome Fern Jean M.D., MIA Active Onset: 03/17/2011 Hypothyroidism Fern Jean M.D., FACP Active Onset: 09/13/2014 Mitral valve disorder Meir Bone M.D., [facility], [facility] Active Note: mitral valave insufficiency Onset: 11/07/2014 Osteoporosis Zulay Kraus M.D. Active Onset: 11/07/2014 Scoliosis deformity of spine Zulay Kraus M.D. Active Onset: 02/19/2015 Tendinosis Zulay Kraus M.D. Active Note: rotatot cuff with AC joint OA Onset: 10/10/2015 Thoracic aortic ectasia [facility] Bone M.D., [facility], [facility] Active Onset: 10/23/2015 Arachnoid cyst Zulay [...] : (age 44 Years) Father due to [place] Father due to Marfan's () Mother due to Stroke () : (age 42 Years) First Brother due to Accident First Sister 67 First Sister Chronic Obstructive Pulmonary Disease (COPD) Social History Type Date Description Comments Sex Unknown Marital Status Single Lives With Male Partner Occupation [employer] ETOH Use Rarely consumes alcohol Tobacco Use Start: Unknown Patient has never smoked Recreational Drug Use Negative For Denies Drug Use Smoking Status Reviewed: 02/22/19 Patient has never smoked Exercise Type/Frequency Exercises [...] 1/2 tab Arlen 18 s by mouth Sandoval, twice a M.D. day Levothyroxine 10/20/20 Active Tablets 100mcg 90tab Take 1 E03.9 Zulay Sodium 17 s Tablet Kraus, By Mouth M.D. Daily Calcium 600 + D 02/05/20 Active Tablets 600-200mg 1 tab Zulay 16 -Unit bid Nayana, MJuan Potassium 10/23/20 Active Capsules 10Meq 360ca 2 tabs Arlen Chloride ER 15 ER ps by mouth Sandoval, bid M.D. Xarelto 10/04/20 Active Tablets 20mg 90tab 1 by Arlen 14 s mouth Sandoval, every M.D. 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 Zostavax 10/20/20 Hx Suspension [id number]/ 1unit sc x1 Zulay 17 - Rec [...] and continue for 7 days after leaving [facility] ion Potassium 04/03/20 Hx Tablets ER 10Meq 180ta 1 tab by Zulay Chloride ER 15 - bs mouth Kraus, 10/22/20 twice a M.D. 15 day Metoprolol 12/14/19 Hx Tablets ER 25mg 135ta 1.5 Meir Succinate ER 15 - 24HR bs tablets Stefek, 08/26/20 by mouth M.D., 18 daily [facility], [facility] Alendronate 11/07/20 Hx Tablets 70mg 12tab [...] pharmacy 019 administered Inj, Administered Injection Edson D. Regadenoson, 013 Brand, 0.1 MG M.D. Technetium TC Administered Injection Edson DJan 99M 013 Brand, Tetrofosmin, M.D. Per Unit Dose Up To 40 Millicuries Immunizations CPT Code Status Date Vaccine Lot # 61381 Given 10/09/2018 Influenza Virus Vaccine, Quadrivalent, Split, Preservative Free 54982 Given 07/19/2018 Zoster (Shingles) Vaccine (HZV), Recombinant, Subunit, Adjuvanted 11306 Given 07/19/2018 Zoster (Shingles) Vaccine (HZV), Recombinant, Subunit, Adjuvanted 41060 Given 10/20/2017 Influenza Virus Vaccine, Quadrivalent, Split, [id number] Preservative Free 49241 Given 11/26/2016 Influ Virus Vaccine, Quadrivalent, Split Virus, [place] [address] Given 2015 Influenza Virus Vaccine, Quadrivalent, Split, Preservative Free 15312 Given 10/17/2014 Tdap - Tetanus/Diptheria/Acellular Pertussis [id number] 68996 Given 10/17/2014 Flu Vaccine Split Virus Preservative Free For [id number] Indiv 3Yr Older 59020 Given 09/05/2013 Flu Vaccine Split Virus Preservative Free For [id number] Indiv 3Yr Older [id number] Given 09/01/2012 Fluzone Vaccine [id number] 10959 Given 01/30/2010 Influenza Virus Vaccine, Pandemic Formulation 49224 Given 01/30/2010 Administration Swine Flu Shot 46751 Given 01/05/2009 Influenza Virus 3Yrs & Over 28716 Given 11/24/2006 Influenza Virus 3Yrs & Over 95337 Given 11/24/2006 Influenza Virus 3Yrs & Over 57872 Given 2003 Td Toxoids Adsorbed For Use 7Yrs Or Older For Intramuscular Use Vital Signs Date Vital Result Comment 02/22/2019 4:19pm Height 70.5 inches 5'10.50" Weight [...] Result H/L Range Note Laboratory test 02/17/2019 [facility] TSH 8.89 mcIU/mL High 0.34-5.[address] ([place] [address] Stim Horm) [phone] T3 Free 3.00 pg/mL N 2.5-3.9 Free T4 (Free Thyroxine) 1.12 ng/dL N 0.61-1.12 Urinalysis Profile 02/17/2019 [facility] Urine Color Straw [address] [place] [address] [phone] Urine Appearance Clear Urine Specific [facility] 1.009 Low 1.010-1.030 Urine pH 7.0 N 5-9 Urine Urobilinogen Negative Negative Urine Ketones Negative Negative Urine Protein Negative Negative Urine Leukocytes Negative Negative Urine Blood Negative Negative * * Abnormal Negative 1 Urine Nitrite Negative Negative Urine Bilirubin Negative Negative Urine Glucose Negative Negative Comp Metabolic Panel 02/17/2019 [facility] Sodium 136 mmol/L N 135-145 [address] [place] [address] [phone] Potassium 4.7 mmol/L N 3.5-5.0 Chloride 103 [...] 120.3 >60 2 Basic Metabolic Panel 12/30/2018 [facility] Sodium 137 mmol/L N 135-145 [address] [place] [address] [phone] Potassium 4.9 mmol/L N 3.5-5.0 Chloride 103 mmol/L N 101-111 Co2 Carbon Dioxide 31 mmol/L N 22-32 Anion Gap 3 mmol/L N 2-11 Glucose 85 mg/dL N 70-100 Blood Urea Nitrogen 16 mg/dL N 6-24 Creatinine 0.63 mg/dL N 0.51-0.95 BUN/Creatinine Ratio 25.4 High 8-20 Calcium 9.2 mg/dL N 8.6-10.3 Egfr Non- 95.8 >60 Egfr 115.9 >60 3 Laboratory test 12/30/2018 [facility] Magnesium 2.0 mg/dL N 1.9-2.7 finding [address] [place] [address] [phone] Laboratory test 12/14/2018 [facility] Hemosure Negative finding Non-Medicare Basic Metabolic 10/29/2018 [facility] Sodium 139 mmol/L N 135- 145 Panel [address] [place] [address] [phone] Potassium 3.9 mmol/L N 3.5-5.0 Chloride 104 mmol/L N 101-111 Co2 Carbon Dioxide 27 mmol/L N 22-32 Anion Gap 8 mmol/L N 2-11 Calcium 9.2 mg/dL N 8.6-10.3 Glucose 72 mg/dL N 70-100 Blood Urea Nitrogen 16 mg/dL N 6-24 Creatinine 0.72 mg/dL N 0.51-0.95 BUN/Creatinine Ratio 22.2 High 8-20 Egfr Non- 82.1 >60 Egfr 99.3 >60 4 Laboratory test 10/29/2018 [facility] Magnesium 1.8 mg/dL Low 1.9-2.7 5 finding [address] [place] [address] [phone] Basic Metabolic 10/13/2018 [facility] Sodium 138 mmol/L N 135- 145 Panel [address] [place] [address] [phone] Potassium 3.8 mmol/L N 3.5-5.0 Chloride 108 mmol/L N 101-111 Co2 Carbon Dioxide 26 mmol/L N 22-32 Anion Gap 4 mmol/L N 2-11 Glucose 93 mg/dL N 70-100 Blood Urea Nitrogen 14 mg/dL N 6-24 Creatinine 0.57 mg/dL N 0.51-0.95 BUN/Creatinine Ratio 24.6 High 8-20 Calcium 8.8 mg/dL N 8.6-10.3 Egfr Non- 107.5 >60 Egfr 130.0 >60 6 Laboratory test 10/13/2018 [facility] Magnesium 1.8 mg/dL Low 1.9-2.[address] [place] [address] [phone] Laboratory test 10/01/2018 [facility] Magnesium <pending> finding [address] [place] [address] [phone] CBC Auto Diff 08/18/2018 [facility] White Blood 5.9 N 3.5- 10.[address] Count 10^3/[place] [address] [phone] Red Blood Count 4.83 10^6/uL N 4.00-5.40 [...] Red Blood Cells % 0.1 Inr/Protime 08/18/2018 [facility] Inr 2.23 High 0.77-1.[address] [place] [address] [phone] Laboratory test 08/18/2018 [facility] Partial 45.5 High 26.0- 36.[address] [place] [place] [address] Time PTT [phone] D Dimer Quantitative < 200 ng/mL N Less Than 230 7 B-Type Natriuretic Peptide BNP 571 pg/mL High 8 Lactic Acid 0.8 mmol/L N 0.5-2.0 9 Comp Metabolic Panel 08/18/2018 [facility] Sodium 134 mmol/L Low 135-145 [address] [place] [address] [phone] Potassium 4.5 mmol/L N 3.5-5.0 Chloride 102 [...] Egfr 72.4 >60 10 Laboratory test 08/18/2018 [facility] Magnesium 2.2 mg/dL N 1.9-2.7 finding [address] [place] [address] [phone] Creatine Kinase(CK) 44 U/L N 10-223 Troponin-I (TnI) 0.00 ng/mL <0.04 CKMB 08/18/2018 [facility] CKMB ng/mL 1.8 ng/mL N 0.6-6.[address] [place] [address] [phone] Laboratory test 08/18/2018 [facility] TSH 4.47 N 0.34-5.60 finding (Thyroid mcIU/[place] [address] Stim Horm) [phone] Laboratory test 08/09/2018 [facility] Troponin-I 0.00 ng/mL < 0.[address] (TnI) [place] [address] [phone] CBC Auto Diff 08/09/2018 [facility] White Blood 5.0 10^3/uL N 3.5-10.[address] [place] [address] [phone] Red Blood Count 4.44 10^6/uL N 4.00-5.40 [...] Blood Cells % 0.1 Laboratory test 08/09/2018 [facility] Lactic Acid 0.6 mmol/L N 0.5-2.[address] [place] [address] [phone] Troponin-I (TnI) 0.01 ng/mL <0.04 Comp Metabolic Panel 08/09/2018 [facility] Sodium 137 mmol/L N 135-145 [address] [place] [address] [phone] Potassium 4.3 mmol/L N 3.5-5.0 Chloride 105 [...] Egfr 54.2 >60 12 Laboratory test 08/09/2018 [facility] Magnesium 2.0 mg/dL N 1.9-2.[address] [place] [address] [phone] Laboratory test 02/04/2018 [facility] TSH (Thyroid 2.13 N 0.34 -5.[address] [facility] [address] Stim Horm) mcIU/[place] [address] [phone] Free T4 (Free Thyroxine) 0.93 ng/dL N 0.61-1.12 T3 Free 3.10 pg/mL N 2.5-3.9 Laboratory test 01/08/2018 [facility] Troponin-I 0.00 ng/mL < 0.04 finding [facility] (TnI) [place] [address] [phone] CBC Auto Diff 01/08/2018 [facility] White Blood 7.3 N 3.5- 10.[address] Count 10^3/[place] [address] [phone] Red Blood Count 4.72 10^6/uL N 4.0-5.4 [...] Red Blood Cells % 0 Inr/Protime 01/08/2018 [facility] Inr 2.10 High 0.77-1.[address] [place] [address] [phone] Laboratory test 01/08/2018 [facility] Partial 46.4 High 26.0- 36.[address] [place] [address] Time PTT [phone] Lactic Acid 0.9 mmol/L N 0.5-2.0 13 B-Type Natriuretic Peptide BNP 354 pg/mL High 14 Comp Metabolic Panel 01/08/2018 [facility] Sodium 133 mmol/L N 133-[address] [place] [address] [phone] Potassium 4.2 mmol/L N 3.5-5.0 Chloride 101 [...] Egfr 84.0 >60 15 Laboratory test 01/08/2018 [facility] Magnesium 1.9 mg/dL N 1.9-2.[address] [place] [address] [phone] Creatine Kinase(CK) 46 U/L N 10-223 Troponin-I (TnI) 0.00 ng/mL <0.04 CKMB 01/08/2018 [facility] CKMB ng/mL 1.8 ng/mL N 0.6-6.3 [address] [place], [place] [address] [phone] Laboratory test 01/08/2018 [facility] TSH 2.84 N 0.34-5.[address] (Thyroid mcIU/[place] [address] Stim Horm) [phone] Laboratory test 11/20/2017 [facility] TSH 1.54 N 0.34-5.[address] (Thyroid mcIU/[place] [address] Stim Horm) [phone] T3 Free 3.50 pg/mL N 2.5-3.9 Free T4 (Free Thyroxine) 1.19 ng/dL High 0.61-1.12 Creatinine 11/17/2017 [facility] Creatinine 0.82 mg/dL N 0.51- 0.[address] [place] [address] [phone] Egfr Non- 70.9 >60 Egfr 91.1 >60 16 Laboratory test 11/17/2017 [facility] Blood Urea 15 mg/dL N 6- [address] [place] [address] [phone] Laboratory test 10/13/2017 [facility] Troponin-I 0.01 ng/mL < 0.[address] (TnI) [place] [address] [phone] CBC Auto Diff 10/13/2017 [facility] White Blood 7.4 10^3/uL N 3.5-10.8 [place] [address] [phone] Red Blood Count 4.67 10^6/uL N 4.0-5.4 [...] Blood Cells % 0 Laboratory test 10/13/2017 [facility] Lactic Acid 1.0 mmol/L N 0.5-2.0 17 finding [address] [place] [address] [phone] Comp Metabolic 10/13/2017 [facility] Sodium 135 mmol/L N 133- 145 Panel [address] [place] [address] [phone] Potassium 4.3 mmol/L N 3.5-5.0 Chloride 103 [...] Egfr 80.8 >60 18 Laboratory test 10/13/2017 [facility] Troponin-I (TnI) 0.00 ng/ mL <0.04 finding [address] [place] [address] [phone] Magnesium 2.0 mg/dL N 1.9-2.7 D Dimer Quantitative < 200 ng/mL N Less Than 230 19 Laboratory test 10/13/2017 [facility] TSH (Thyroid 7.01 High 0.34-5.60 finding [address] [facility] Stim Horm) mcIU/[place] [address] [phone] Free T4 (Free Thyroxine) 1.03 ng/dL N 0.61-1.12 Basic Metabolic Panel 06/10/2017 [facility] Sodium 137 mmol/L N 133-145 [address] [place] [address] [phone] Potassium 4.1 mmol/L N 3.5-5.0 Chloride 105 mmol/L N 101-111 Co2 Carbon Dioxide 27 mmol/L N 22-32 Anion Gap 5 mmol/L N 2-11 Glucose 88 mg/dL N 70-100 Blood Urea Nitrogen 12 mg/dL N 6-24 Creatinine 0.69 mg/dL N 0.51-0.95 BUN/Creatinine Ratio 17.4 N 8-20 Calcium 9.2 mg/dL N 8.6-10.3 Egfr Non- 86.8 N >60 Egfr 111.6 N >60 20 Laboratory test 06/10/2017 [facility] Magnesium 1.8 mg/dL Low 1.9-2.7 finding [address] [place] [address] [phone] Lipid Profile 06/10/2017 [facility] Triglycerides 104 mg/dL N 21 (Trig/Chol/HDL) [address] [place] [address] [phone] Cholesterol 182 mg/dL N 22 HDL Cholesterol 42.5 mg/dL N 23 LDL Cholesterol 119 mg/dL N 24 Laboratory test 05/27/2017 [facility] Cytology SEE RESULT [address] [place] [address] [phone] Laboratory test 02/02/2017 [facility] TSH (Thyroid 2.01 mcIU/mL N 0.34-[address] Stim Horm) .60 [place] [address] [phone] T3 Free 3.40 pg/mL N 2.5-3.9 Free T4 (Free Thyroxine) 0.94 ng/dL N 0.61-1.12 Basic Metabolic Panel 08/21/2016 [facility] Sodium 135 mmol/L N 133-[address] [place] [address] [phone] Potassium 4.3 mmol/L N 3.5-5.0 Chloride 99 mmol/L Low 101-111 Co2 Carbon Dioxide 29 mmol/L N 22-32 Anion Gap 7 mmol/L N 2-11 Glucose 73 mg/dL N 70-100 Blood Urea Nitrogen 14 mg/dL N 6-24 Creatinine 0.72 mg/dL N 0.51-0.95 BUN/Creatinine Ratio 19.4 N 8-20 Calcium 8.9 mg/dL N 8.6-10.3 Egfr Non- 82.9 N >60 Egfr 106.6 N >60 26 Ua Routine 08/21/2016 [facility] Ua Specific [facility] 1.010 Ua PH 5 Ua Color yellow Ua Appera clear Ua WBC neg Ua Protein neg Ua Glucose normal Ua Ketones neg Ua Bilirubin neg Ua Urobilinogen normal Ua Nitrite neg Ua Occult Blood about 250 CBC Auto Diff 08/21/2016 [facility] White Blood 10.4 10^3/uL N 3.5-10.[address] [place] [address] [phone] Red Blood Count 4.49 10^6/uL N 4.0-5.4 [...] Cells % 0 N Laboratory test 08/21/2016 [facility] Cytology SEE RESULT [address] [place] [address] [phone] Urine Culture And 08/21/2016 [facility] Urine Culture SEE RESULT [address] [place] [address] [phone] Laboratory test 08/21/2016 [facility] Blood Culture SEE RESULT [address] [place] [address] [phone] Urinalysis Profile 08/21/2016 [facility] Urine Color Colorless [address] [place] [address] [phone] Urine Appearance Clear N Urine Specific [facility] 1.014 N 1.010-1.030 Urine pH 7.0 N [...] Absent N Absent Laboratory test finding 08/21/2016 [facility] Lipase 36 U/L N 11.0-82[address] [place] [address] [phone] C Reactive Protein 78.75 mg/L High < 5.00 30 Comp Metabolic Panel 08/21/2016 [facility] Sodium 134 mmol/L N 133-[address] [place] [address] [phone] Potassium 3.9 mmol/L N 3.5-5.0 Chloride 99 [...] 120.0 N >60 31 Laboratory test 08/21/2016 [facility] Partial 33.9 seconds N 26.0-36.[address] [place] [address] PTT [phone] Lactic Acid 0.8 mmol/L N 0.5-2.0 32 Inr/Protime 08/21/2016 [facility] Inr 1.21 High 0.89-1.[address] [place] [address] [phone] CBC Auto Diff 08/21/2016 [facility] White Blood 9.8 N 3.5- 10.[address] Count 10^3/[place] [address] [phone] Red Blood Count 4.34 10^6/uL N 4.0-5.4 [...] Cells % 0 N Laboratory test 02/05/2016 [facility] Magnesium 1.9 mg/dL N 1.9-2.7 finding [address] [place] [address] [phone] Basic Metabolic 02/05/2016 [facility] Sodium 136 mmol/L N 133- 145 Panel [address] [place] [address] [phone] Potassium 4.3 mmol/L N 3.5-5.0 Chloride 102 mmol/L N 101-111 Co2 Carbon Dioxide 31 mmol/L N 22-32 Anion Gap 3 mmol/L N 2-11 Glucose 86 mg/dL N 70-100 Blood Urea Nitrogen 15 mg/dL N 6-24 Creatinine 0.61 mg/dL N 0.51-0.95 BUN/Creatinine Ratio 24.6 High 8-20 Calcium 9.3 mg/dL N 8.6-10.3 Egfr Non- 100.4 N >60 Egfr 129.1 N >60 33 Laboratory 02/05/2016 [facility] Hepatitis C Nonreactive N Nonreactive test finding [address] [facility] [place] [address] [phone] Basic 11/16/2015 [facility] Sodium 136 mmol/L N 133-145 Metabolic [address] [facility] [place] [address] [phone] Potassium 4.7 mmol/L N 3.5-5.0 Chloride 102 mmol/L N 101-111 Co2 Carbon Dioxide 29 mmol/L N 22-32 Anion Gap 5 mmol/L N 2-11 Glucose 82 mg/dL N 70-100 Blood Urea Nitrogen 16 mg/dL N 6-24 Creatinine 0.66 mg/dL N 0.51-0.95 BUN/Creatinine Ratio 24.2 High 8-20 Calcium 9.4 mg/dL N 8.6-10.3 Egfr Non- 91.7 N >60 Egfr 117.9 N >60 34 Laboratory test 11/16/2015 [facility] Magnesium 1.8 mg/dL Low 1.9-2.7 finding [address] [place] [address] [phone] Digoxin 0.5 ng/ml Low 0.8-2.0 Comp Metabolic Panel 10/22/2015 [facility] Sodium 133 mmol/L N 133-145 [address] [place] [address] [phone] Potassium 4.1 mmol/L N 3.5-5.0 Chloride 97 [...] 110.1 N >60 35 Coxsackie A 10/22/2015 [facility] Coxsackie Virus Type A(2) Ab < 1:8 N [address] [place] [address] [phone] Coxsackie Virus Type A(4) Ab <1:8 N Coxsackie Virus Type A(7) Ab <1:8 N Coxsackie Virus Type A(9) AB <1:8 N Coxsackie Virus Type A(10) Ab <1:8 N Coxsackie Virus Type A(16) Ab <1:8 N 36 Laboratory test 10/22/2015 [facility] Magnesium 1.8 mg/dL Low 1.9-2.[address] [place] [address] [phone] Harrison Lux 10/22/2015 [facility] Ebv Capsid Ag Positive N Negative Comprehensive [address] [place] [address] [phone] Ebv Capsid Ag IgM Ab Negative N Negative Harrison-Lux Nuclear Antigen Positive N Negative Harrison-Lux Virus Interp See Comment N 37 Laboratory test 10/22/2015 [facility] Digoxin 0.8 ng/ml N 0.8- 2.[address] [place] [address] [phone] CBC Auto Diff 10/18/2015 [facility] White Blood 6.3 10^3/uL N 4.8-10.[address] [place] [address] [phone] Red Blood Count 4.95 10^6/uL N 4.0-5.4 [...] Cells % 0 N Laboratory test 10/18/2015 [facility] Lactic Acid 0.8 mmol/L N 0.5-2.2 finding [address] [place] [address] [phone] Comp Metabolic 10/18/2015 [facility] Sodium 135 mmol/L N 133- 145 Panel [address] [place] [address] [phone] Potassium 3.6 mmol/L N 3.5-5.0 Chloride 103 [...] 115.9 N >60 38 Laboratory test 10/18/2015 [facility] Magnesium 1.8 mg/dL Low 1.9-2.7 finding [address] [place] [address] [phone] Troponin-I (TnI) 0.00 ng/mL N <0.03 39 TSH (Thyroid Stim Horm) 1.39 ?IU/mL N 0.34-5.60 Basic Metabolic Panel 12/17/2014 [facility] Sodium 134 mmol/L N 133-145 [address] [place] [address] [phone] Potassium 4.1 mmol/L N 3.5-5.0 Chloride 103 [...] N >60 40 Basic Metabolic Panel 12/16/2014 [facility] Sodium 134 mmol/L N 133-[address] [place] [address] [phone] Potassium 4.1 mmol/L N 3.5-5.0 Chloride 103 mmol/L N 101-111 Co2 Carbon Dioxide 30 mmol/L N 22-32 Anion Gap 1 mmol/L Low 2-11 Glucose 72 mg/dL N 70-100 Blood Urea Nitrogen 17 mg/dL N 6-24 Creatinine 0.76 mg/dL N 0.51-0.95 BUN/Creatinine Ratio 22.4 High 8-20 Calcium 9.1 mg/dL N 8.6-10.3 Egfr Non- 78.2 N >60 Egfr 100.5 N >60 41 Pthi 11/13/2014 [facility] PTH Intact 3.4 pmol/L N 1.3-9.[address] [place] [address] [phone] Calcium (PTH Intact) 9.0 mg/dL N 8.6-10.3 Laboratory test 11/13/2014 [facility] TSH (Thyroid 1.75 IU/mL N 0.34-5.[address] [place] [address] Horm) [phone] Free T3 2.80 pg/mL N 2.5-3.9 Free T4 0.93 ng/mL N 0.61-1.12 Vitamin D, 25 11/13/2014 [facility] 25-Hydroxy Vitamin 4.5 ng/ mL N Hydroxy [address] [place] D2 [place] [address] [phone] 25-Hydroxy Vitamin D3 32 ng/mL N 25-Hydroxy Vitamin D Total 37 ng/mL N 42 CBC Auto 10/20/2014 [facility] White Blood 4.6 10^3/uL Low 4.8 -10.[address] [place] [address] [phone] Red Blood Count 4.24 10^6/uL N 4.0-5.4 [...] Cells % 0.1 N Laboratory test 10/20/2014 [facility] Rapid Influenza (SEE NOTE ) [address] [place] [address] [phone] Basic Metabolic 10/20/2014 [facility] Sodium 130 mmol/L Low 133-[address] [place] [address] [phone] Potassium 3.9 mmol/L N 3.5-5.0 44 Chloride [...] 114.3 N >60 45 Laboratory test 10/17/2014 [facility] Cytology RUN DATE: finding [address] <SEE NOTE> [place] [address] [phone] Human Papilloma Virus Rna Negative N Negative 47 Laboratory test 10/13/2014 [facility] TSH (Thyroid 4.13 IU/mL N 0.34-5.[address] [place] [address] Horm) [phone] Free T3 2.60 pg/mL N 2.5-3.9 Free T4 0.94 ng/mL N 0.61-1.12 CBC Auto Diff 09/29/2014 [facility] White Blood 9.4 10^3/uL N 4.8-10.[address] [place] [address] [phone] Red Blood Count 4.55 10^6/uL N 4.0-5.4 [...] % 0.1 N Comp Metabolic Panel 09/29/2014 [facility] Sodium 138 mmol/L N 133-[address] [place] [address] [phone] Potassium 4.1 mmol/L N 3.7-5.6 Chloride 103 [...] 70.6 N >60 Egfr 90.8 N >60 48 Laboratory test 09/29/2014 [facility] Magnesium 1.9 mg/dL N 1.9-2.7 finding [address] [place] [address] [phone] Troponin I 0.00 ng/mL N <0.03 49 TSH (Thyroid Stimulating Horm) 6.43 IU/mL High 0.34-5.60 Laboratory 11/01/2013 [facility] TSH (Thyroid 6.00 High 0.34- 5.60 test finding 101 [facility] Stimulating miu/[place] [address] Horm) [phone] Free T4 0.84 ng/mL 0.61-1.24 Lipid Profile 11/01/2013 [facility] Triglycerides 98 mg/dL 40 -200 (Trig/Chol/HDL) [address] [place] [address] [phone] Cholesterol 208 mg/dL High Less than 200 HDL Cholesterol 64 mg/dL High 40-60 50 Cholesterol/HDL Ratio 3.3 Average 1-4.44 LDL Cholesterol 124.4 High Less Than 100 51 Comp Metabolic Panel 11/01/2013 [facility] Sodium 137 mmol/L 133-145 [address] [place] [address] [phone] Potassium 4.3 mmol/L 3.5-5.0 Chloride 102 mmol/L [...] Egfr 110.9 >60 52 Laboratory test 11/01/2013 [facility] CRP High 0.8 mg/L 53 finding [address] [place] [address] [phone] Laboratory test 09/05/2013 [facility] Cytology RUN DATE: [address] 09/06/ [place] [address] <SEE NOTE> [phone] CBC Auto Diff 06/23/2013 [facility] White Blood Count 7.1 4.8 -[address] 10^3/uL .8 [place] [address] [phone] Red Blood Count 4.44 10^6/uL 4.0-5.4 Hemoglobin [...] Cells % 0 Laboratory test finding 06/23/2013 [facility] Inr 0.86 Low 0.87-0.97 [address] [place] [address] [phone] Activated Partial Thrombo Time 30.7 seconds 22.18-37.18 Comp Metabolic Panel 06/23/2013 [facility] Sodium 136 mmol/L 133-145 [address] [place] [address] [phone] Potassium 4.3 mmol/L 3.5-5.0 Chloride 101 mmol/L [...] Egfr 95.4 >60 55 Laboratory test 06/23/2013 [facility] Magnesium 2.1 mg/dL 1.7 -2.6 finding [address] [place] [address] [phone] Creatine Kinase 60 U/L 0-200 CKMB 06/23/2013 [facility] CKMB ng/mL 2.5 ng/mL 0.3-4.0 56 [address] [place] [address] [phone] Laboratory test 06/23/2013 [facility] Troponin I 0.03 ng/mL 0 -0.06 57 finding [address] [place] [address] [phone] TSH (Thyroid Stimulating Horm) 5.87 miu/mL High 0.34-5.60 C Reactive Protein 0.5 mg/dL Less than 0.5 Laboratory test 06/23/2013 [facility] Erythrocyte Sed 11 mm/Hr 0-[address] Rate [place], [place] [address] [phone] Laboratory test 06/01/2013 [facility] Lyme Disease Positive Negative 58 finding 101 [place] [address] [phone] Lyme Western 06/01/2013 [facility] Lyme Disease IgG Negative Negative Blot [address] [place] [address] [phone] Lyme Disease IgG Bands Present p41, kDa Lyme Disease IgM Ab WB Positive Negative Lyme Disease IgM Bands Present p41, p23, kDa Lyme Disease Interpretation See Comment 59 Laboratory test 09/09/2012 [facility] TSH (Thyroid 5.50 0.34- 5.60 [address] Stimulating MIU/[place] [address] Horm) [phone] Free T4 0.77 NG/ML 0.61-1.24 61 Lipid Profile 09/09/2012 [facility] Triglycerides 62 mg/dL 40 -200 (Trig/Chol/HDL) [address] [place] [address] [phone] Cholesterol 170 mg/dL Less than 200 62 HDL Cholesterol 57 mg/dL 40-60 63 Cholesterol/HDL Ratio 3.0 AVERAGE 1-4.44 LDL Cholesterol 100.6 mg/dL High Less Than 100 Comp Metabolic Panel 09/09/2012 [facility] Sodium 137 mmol/L 133-[address] [place] [address] [phone] Potassium 4.5 mmol/L 3.5-5.0 Chloride 106 mmol/L [...] Egfr 111.3 >60 65 Laboratory test 09/09/2012 [facility] CRP High 1.1 mg/L [address] [place] [address] [phone] Vitamin D, 25 09/09/2012 [facility] 25-Hydroxy Vitamin 6.3 ng/ mL Hydroxy [address] [place] [address] [phone] 25-Hydroxy Vitamin D3 25 ng/mL 25-Hydroxy Vitamin D Total 31 ng/mL 67 Ua Routine 09/01/2012 [employer] [facility] Ua Specific [facility] 1.005 Ua PH 7 Ua Color pale yellow Ua Appera clear Ua WBC neg Ua Protein neg Ua Glucose neg Ua Ketones neg Ua Bilirubin neg Ua Urobilinogen neg Ua Nitrite neg Ua Occult Blood Non hem trace Laboratory test 09/01/2012 [facility] Cytology RUN DATE: [address] 09/02/ <[place] [address] NOTE> [phone] Laboratory test 06/15/2012 [facility] TSH 5.43 MIU/ML 0.34- 5. finding [address] [place] [address] [phone] Magnesium 2.1 mg/dL 1.7-2.6 Basic Metabolic Panel 06/15/2012 [facility] Sodium 137 mmol/L 135-[address] [place] [address] [phone] Potassium 4.3 mmol/L 3.5-5.0 Chloride 103 mmol/L 101-111 Co2 (Carbon Dioxide) 28.0 mmol/L 22-32 Anion Gap 6.0 mmol/L 2-11 69 Glucose 95 mg/dL 70-100 BUN 16 mg/dL 6-24 Creatinine 0.7 mg/dL 0.50-1.40 One Over Creatinine 1.42 BUN/Creatinine Ratio 22.9 High 8-20 eGFR Non- 86.9 > 60 eGFR 111.7 > 60 70 Laboratory test 06/15/2012 [facility] Calcium 9.3 mg/dL 8.1- 9.9 finding [address] [place] [address] [phone] Laboratory test 06/10/2011 [facility] TSH 4.68 MIU/ML 0.34- 5.60 finding [address] [place] [address] [phone] Thyroxine Free 0.86 ng/dL 0.61-1.24 Laboratory test 06/10/2011 [facility] Cytology <SEE 71 finding [address]ZA[address] NOTE> [place] [address] [phone] 1 *Ascorbic acid is present which may [...] pg/mL: likely moderate to severe CHF 9 [facility] Severe Sepsis and Septic Shock Management [...] 5 Kidney failure <15 (or dialysis) 11 [facility] Severe Sepsis and Septic Shock Management [...] 5 Kidney failure <15 (or dialysis) 13 [facility] Severe Sepsis and Septic Shock Management [...] 5 Kidney failure <15 (or dialysis) 17 [facility] Severe Sepsis and Septic Shock Management [...] >189 mg/dL 25 SEE RESULT BELOW Name: CARRIE MOORE : [address]: Zulay Kraus MD Acct: [id number] Unit: [id number] AGE: 61 Location: [facility] Re05/27/17 SEX: F Status: REG REF SPEC: [id number] CHRIS: 05/27/17-[address] [facility] [address]: Zulay Kraus MD REQ: [id number] RECD: 05/27/17 STATUS: SOUT _ ORDERED: TP IMAGE ANAL, HPV 16/18 GENE COMMENTS: [id number] FINAL DIAGNOSIS Negative for Intraepithelial lesion or [...] was evaluated with the assistance of the [employer] Test Imaging System. Due to cytologic findings at the resource recovery specialist microscope, comprehensive manual rescreening by a Vice President [employer] may be required. The Pap Smear is [...] performed at Main Lab DEPARTMENT OF PATHOLOGY, [address] [place] [address] Uziel South M.D. Director [facility] # [id number] 26 Because ethnic data is not always [...] (or dialysis) 27 SEE RESULT BELOW Name: CARIRE MOORE : [address]: Gorge Gipson NP Acct: [id number] Unit: [id number] AGE: 60 Location: [facility] Re08/21/16 SEX: F Status: REG REF SPEC: [id number] CHRIS: 08/21/16-[address]: Gorge Gipson DETAIL ASSEMBLER REQ: [id number] RECD: 08/21/16 STATUS: SOUT _ ORDERED: THIN PREP NON G COMMENTS: [id number] FINAL DIAGNOSIS Urine, voided: --Negative for malignant cells. URINE VOID GROSS DESCRIPTION 7.5 mls of clear pale yellow voided urine. Signed (signature on file) Gisela Ortega MD 1355 END OF REPORT * ML=Testing performed at Main Lab DEPARTMENT OF PATHOLOGY, [address] [place] [address] Uziel South M.D. Director [facility] # [id number] 28 SEE RESULT BELOW Name: CARRIE MOORE : [address]: Gorge Gipson DETAIL ASSEMBLER Acct: [id number] Unit: [id number] AGE: 60 Location: [facility] Re08/21/16 SEX: F Status: REG REF SPEC: [id number] CHRIS: 08/21/16-[address]: Gorge Gipson NP REQ: [id number] RECD: 08/21/16 STATUS: COMP _ SOURCE: URINE SPDESC: ORDERED: Urine Culture COMMENTS: [id number] Procedure Result Reported Site Urine Culture Final 08/22/16- 1607 ML No Growth (<1,000 CFU/mL) * ML - MAIN LAB ([facility]) . END OF REPORT * ML=Testing performed at Main Lab DEPARTMENT OF PATHOLOGY, [address] [place] [address] Uziel South M.D. Director [facility] # [id number] 29 SEE RESULT BELOW Name: CARRIE MOORE : [address]: Darian Agosto MD Acct: [id number] Unit: [id number] AGE: 60 Location: [place] [address] Re08/21/16 Dis: 08/25/16 SEX: F Status: DIS IN SPEC: [id number] CHRIS: 08/21/[address] [facility] [address]: Dick Rice MD REQ: [id number] RECD: 08/21/16 STATUS: JOSTIN COBURN DR: Zulay Kraus MD _ SOURCE: BLOOD,VENO SPDESC: ORDERED: Blood Cult Procedure Result Reported Site Aerobic Culture Bottle Final 08/26/16- 1939 ML No Growth Day 5 Anaerobic Culture Bottle Final 08/26/16- 1939 ML No Growth Day 5 * ML - MAIN LAB ([facility]) . END OF REPORT * ML=Testing performed at Main Lab DEPARTMENT OF PATHOLOGY, [address] [place] [address] Uziel South M.D. Director [facility] # [id number] 30 Acute inflammation: >10.00 31 Because ethnic [...] 5 Kidney failure <15 (or dialysis) 32 [facility] Severe Sepsis and Septic Shock Management [...] its performance characteristics have been determined by [employer]. Performance characteristics refer to the analytical performance of the test. Test Performed by: [employer], [employer] [address] [place] [address] 37 RESULT: Results suggest past infection. ADDITIONAL [...] primary infection with EBV. Test Performed by: [address] [address] Marketing Account Manager: Yariel Alonso II, M.D., Ph.D. 38 Because [...] 0.03 ng/mL Not supportive of diagnosis of NV 0.03 - 0.50 ng/mL Indeterminate: suggest serial studies if clinically indicated. Greater than 0.5 ng/mL Consistent with diagnosis of NV 40 Because ethnic data is not always [...] levels within this range. Test Performed by: [facility] - [address] [address] Marketing Account Manager: Nba Park M.D. 43 RUN DATE: 10/21/14 [facility] LAB LIVE PAGE 1 RUN TIME: [address] [place] [address] Specimen Inquiry Name: CARRIE MOORE : [address]: Surya De Guzman MD Acct: [id number] Unit: [id number] AGE: 59 Location: [facility] Re10/20/14 SEX: F Status: DEP ER SPEC: [id number] CHRIS: 10/20/14-[address]: Surya De Guzman MD REQ: [id number] RECD: 10/21/14-121 STATUS: JOSTIN COBURN DR: Zulay Kraus MD _ SOURCE: [facility]: ORDERED: Rapid Flu A B COMMENTS: Verbal to [id number] ([facility]) by [id number] at 1445 on 10/21/14. Results read back accurately. QUERIES: [employer] Number [id number] Procedure Result Verified Site Rapid Influenza A [...] performed at Main Lab DEPARTMENT OF PATHOLOGY, [address] [place] [address] Uziel South M.D. Director [facility] # [id number] 44 Potassium reference range changed effective 10/01/14 [...] <15 (or dialysis) 46 RUN DATE: 10/18/14 [facility] LAB LIVE PAGE 1 RUN TIME: [address] [place] [address] Specimen Inquiry Name: CARRIE MOORE : [address]: Zulay Kraus MD Acct: [id number] Unit: [id number] AGE: 59 Location: [facility] Re10/17/14 SEX: F Status: REG REF SPEC: [id number] CHRIS: 10/17/14-[address]: Zulay Kraus MD REQ: [id number] RECD: 10/17/144938 STATUS: SOUT _ ORDERED: IMAGE ANALYSIS, HPV/Thin [...] (signature on file) DESTIN Zhu (ASCP) 10/18/14 135 This Pap test was evaluated with the assistance of the [employer] Test Imaging System. Due to cytologic findings at the resource recovery specialist microscope, comprehensive manual rescreening by a Vice President [employer] may be required. The Pap Smear is [...] performed at Main Lab DEPARTMENT OF PATHOLOGY, [address] [place] [address] Uziel South M.D. Director [facility] # [id number] 47 The high-risk HPV types detected by the assay include: 16, 18, 31, 33, 35, 39, 45, 51, 52, 56, 58, 59, 66, and 68. 48 Because ethnic data is not always readily [...] 15-29 5 Kidney failure <15 (or dialysis) 49 Reference Range and Interpretation: TnI (ng/mL) Interpretation Less Than 0.03 ng/mL Not supportive of diagnosis of NV 0.03 - 0.50 ng/mL Indeterminate: suggest serial studies if clinically indicated. Greater than 0.5 ng/mL Consistent with diagnosis of NV 50 HDL Interpretation: Undesirable: High Risk: Less [...] (Approximately 2-Fold Increase) 54 RUN DATE: 09/06/13 [facility] LAB LIVE PAGE 1 RUN TIME: 1613 [address] [place], [place] [address] Specimen Inquiry Name: CARRIE MOORE : [address]: Fern Jean MD Acct: [id number] Unit: [id number] AGE: 57 Location: [facility] Re09/05/13 SEX: F Status: REG REF SPEC: [id number] CHRIS: 09/05/13-[address] [facility] [address]: Fern Jean MD REQ: [id number] RECD: 09/05/13-2414 STATUS: SOUT _ ORDERED: IMAGE ANALYSIS FINAL [...] System. Due to cytologic findings at the resource recovery specialist microscope, comprehensive manual rescreening by a Vice President [employer] may be required. The Pap Smear is [...] performed at Main Lab DEPARTMENT OF PATHOLOGY, [address] [place] [address] Uziel South M.D. Director [facility] Permit #[id number] 55 Because ethnic data is not always [...] 0.06 ng/mL Not supportive of diagnosis of NV 0.06 - 0.50 ng/mL Indeterminate: suggest serial studies if clinically indicated. Greater than 0.5 ng/mL Consistent with diagnosis of NV 58 Not diagnostic. Supplemental testing ordered by reflex. Test Performed by: [place] [address] Marketing Account Manager: Louie Burkett III, M.D. 59 Consistent with [...] screening test (e.g., EIA). Test Performed by: [place] [address] Marketing Account Manager: Louie Burkett III, M.D. 60 FASTING 61 FASTING 62 Desirable: Less than 200 MG/DL Borderline-High Risk: 200-239 MG/DL High-Risk: 240 MG/DL and over 63 HDL Interpretation: Undesirable: High Risk: Less than 40 MG/DL Desirable: Low Risk: Greater than 60 MG/DL 64 A metabolite of Naproxen, O-desmethylnaproxen, has been shown to interfere with the Jenrandellik-Bobbi method for measuring total bilirubin. Samples from [...] normal population are 25-80 Test Performed by: [place] [address] Marketing Account Manager: Louie Burkett III, M.D. R 68 RUN DATE: 09/02/12 [facility] LAB LIVE PAGE 1 RUN TIME: [address] [place] [address] Specimen Inquiry Name: CARRIE MOORE : [address]: Fern Jean MD Acct: [id number] Unit: [id number] AGE: 56 Location: [facility] Re09/01/12 SEX: F Status: REG REF SPEC : [id number] RECD: 09/02/12 STATUS: ELBA HARPER NUM: [id number] CHRIS: 09/01/12-[address]: Fern Jean MD ENTERED: 09/02/12 [...] (signature on file) DESTIN Ledesma (ASCP) 09/02 7272 This Pap test was evaluated with the assistance of the [employer] Test Imaging System. Due to cytologic findings at the resource recovery specialist microscope, comprehensive manual rescreening by a Vice President [employer] may be required. The Pap Smear is [...] performed at Main Lab DEPARTMENT OF PATHOLOGY, [address] [place] [address] Uziel South M.D. Director [facility] Permit #[id number] 69 Anion gap measurement may be of [...] (or dialysis) 71 ---- RUN DATE: 06/11/11 [facility] NMI LIVE PAGE 1 RUN TIME: 1456 Specimen Inquiry RUN USER: INTERFACE -- Name: CARRIE MOORE Status: REG REF Re06/10/11 Age/Sex: 55/F Unit#: [id number] Location: [facility] : 57 -- Specimen: [id number] SOUT Spec Date: 06/10/11 [facility] Dr: Fern Jean MD Spec Type: [...] was evaluated with the assistance of the UGO [employer]Prep Pap Test Imaging System. The Pap Smear [...] JURADO(ASCP) 06/11/11 1456 -- DEPARTMENT OF PATHOLOGY, [address] [place] [address] [facility] Permit #[id number] Uziel South M.D. Director Ally Hooks M.D. Billet Inspector Dir vargas -- Procedures Date Code Description Status 02/10/2019 92327 ECHO Transthoracic, Real-Time 2D With Doppler And Completed Color Flow 02/10/2019 78007 ECHO Transthoracic, Real-Time 2D With Doppler And Completed Color Flow 01/25/2019 50328 EKG Tracing & Interpretation Completed 10/13/2018 21203 EKG, Interpretation Only Completed 10/13/2018 63087 Cardioversion Completed 10/01/2018 94334 EKG Tracing & Interpretation Completed 09/14/2018 56566 Moderate Sedation Services; Same Phys Intl 15 Mins; PT Completed >=5 Years 09/14/2018 33185 Cardioversion Completed 09/13/2018 99186 EKG Tracing & Interpretation Completed 09/13/2018 89458 EKG Tracing & Interpretation Completed 09/06/2018 29785 Holter Monitor Review (24 hr)dr review & interp only Completed 08/27/2018 85648 ECG Monitor/Recording W/Visual Superimposition Completed Scanning 08/27/2018 48926 EKG Tracing & Interpretation Completed 08/19/2018 00007 EKG, Interpretation Only Completed 08/19/2018 77808 Cardioversion Completed 08/10/2018 17631 EKG, Interpretation Only Completed 08/10/2018 45983 Cardioversion Completed 03/08/2018 [id number] Mammogram Completed 02/12/2018 70216 Echocardiography, Transesophageal, Real Time W/Image Completed 2D W/W/O M-M 02/12/2018 75167 Pulse Wave/Continuous-Interp.RPT Completed 02/12/2018 49645 Color Flow Doppler/Interp & Reprt Completed 02/12/2018 81421 Moderate Sedation Services; Same Phys Intl 15 Mins; PT Completed >=5 Years 02/12/2018 60457 Moderate Sedation Services; Same Phys Each Additional Completed 15 Mins 02/04/2018 82590 ECHO Transthorasic Realtime 2D W Doppler & Color Flow Completed Hosp 11/18/2017 136920861 Bone Mineral Density Test Completed 11/17/2017 84927 ECHO Transthorasic Realtime 2D W Doppler & Color Flow Completed Hosp 11/09/2017 61004 EKG Tracing & Interpretation Completed 10/14/2017 54770 Moderate Sedation Services; Same Phys Intl 15 Mins; PT Completed >=5 Years 10/14/2017 16595 Cardioversion Completed 02/17/2017 [id number] Mammogram Completed 11/17/2016 01175 EKG Tracing & Interpretation Completed 08/24/2016 85646 EKG, Interpretation Only Completed 08/23/2016 83303 EKG, Interpretation Only Completed 02/15/2016 [id number] Mammogram Completed 01/16/2016 60431 Polysomnography Sleep Staging 4+ Parameters Completed 12/03/2015 36141 EKG Tracing & Interpretation Completed 10/10/2015 42159 EKG Tracing & Interpretation Completed 03/19/2015 42257 ECHO Transthorasic Realtime 2D W Doppler & Color Flow Completed Hosp 12/14/2014 34229 EKG Tracing & Interpretation Completed 10/31/2014 [id number] Bone Mineral Density Test Completed 10/31/2014 [id number] Mammogram Completed 09/29/2014 86525 EKG, Interpretation Only Completed 09/13/2014 42412 EKG Tracing & Interpretation Completed 03/06/2014 28469 ECHO Transthorasic Realtime 2D W Doppler & Color Flow Completed Hosp 11/07/2013 66640652 Mammogram Completed 09/05/2013 30304 EKG Tracing & Interpretation Completed 07/22/2013 46187 Myocardial Perfusion Imaging Tomographic (Spect) Completed Multiple Studies 07/22/2013 28171 Stress Test Completed 07/19/2013 81622 Stress Test Completed 07/13/2013 84149 Holter Monitor Review (24 hr)dr review & interp only Completed 07/11/2013 50108 EKG Tracing & Interpretation Completed 07/05/2013 36844 ECHO Transthorasic Realtime 2D W Doppler & Color Flow Completed Hosp 06/23/2013 74660 EKG Tracing & Interpretation Completed 09/09/2012 61150288 Mammogram Completed 09/09/2012 516588189 Bone Mineral Density Test Completed 06/15/2012 48009 EKG Tracing & Interpretation Completed 07/01/2011 35599057 Colonoscopy Completed 04/15/2011 62365323 Mammogram Completed 03/19/2011 36760 EKG Tracing & Interpretation Completed 02/07/2010 19716537 Mammogram Completed 02/07/2010 569549198 Bone Mineral Density Test Completed 01/30/2010 56503 EKG Tracing & Interpretation Completed 01/05/2009 77694 EKG Tracing & Interpretation Completed 12/27/2007 73905 EKG Tracing & Interpretation Completed 12/27/2007 74171 EKG Tracing & Interpretation Completed 11/24/2006 83837 EKG Tracing & Interpretation Completed Encounters Type Date Location Provider Dx Diagnosis Office Visit 01/27/2019 [facility] Lyndon Maloney84.374D Stress fracture, 9:30a [facility] right foot, subs C.M.A. for fx w routn heal Office Visit 01/25/2019 [place] [facility] Arlen Henderson I48.0 Paroxysmal atrial 9:45a Of Latrell Lugo fibrillation Q87.410 Marfan's syndrome with aortic dilation I34.0 Nonrheumatic mitral (valve) insufficiency Office Visit 01/04/2019 9:15a Orthopedic Ezequiel Haney79.671 Pain in right [facility] Call foot C.M.A. Office Visit 12/02/2018 10:30a Orthopedic Ezequiel Haney79.671 Pain in right [facility] Call foot C.M.A. Office Visit 11/16/2018 11:10a [facility] Internal Zulay Z00.00 Encntr for Medicine - [facility]ney Kraus general adult [facility] medical exam w/o abnormal findings M81.0 Age-related osteoporosis w/o current pathological fracture M79.671 Pain in right foot Z12.11 Encounter for screening for malignant neoplasm of colon Office Visit 11/09/2018 10:30a [place] [facility] Maria C Romo I48.0 Paroxysmal atrial Of [employer] Molder Foster, N.P. fibrillation Q87.410 Marfan's syndrome with aortic dilation Z79.01 MCC (current) use of anticoagulants Office Visit 10/01/2018 1:30p [place] [facility] Maria C S. I48.0 Paroxysmal atrial Of [employer] Molder Foster, N.P. fibrillation R00.0 Tachycardia, unspecified R94.31 Abnormal electrocardiogram [ECG] [EKG] Q87.410 Marfan's syndrome with aortic dilation Office Visit 09/13/2018 4:40p [place] [facility] Arlen Henderson, I48.92 Unspecified Of [employer] Molder M.D. atrial flutter R00.0 Tachycardia, unspecified Office Visit 08/27/2018 1:30p [place] [facility] Maria C S. I48.0 Paroxysmal atrial Of [employer] Molder Foster, N.P. fibrillation I77.810 Thoracic aortic ectasia Z79.01 MCC (current) use of anticoagulants Office Visit 08/18/2018 [facility] Lianna I48.91 Unspecified atrial 10:32a Assoc,fatimah Mcgowan DO fibrillation Hospitalists Office Visit 08/18/2018 [place] [facility] Arlen Henderson, I48.91 Unspecified atrial 12:58p Of Latrell M.D. fibrillation Office Visit 08/10/2018 [facility] Marquita Swain I48.91 Unspecified atrial 10:37a Assfatimah welsh N.P. fibrillation Hospitalists Z86.79 Personal history of other diseases of the circulatory system I77.810 Thoracic aortic ectasia M85.80 Oth disrd of bone density and structure, unspecified site I34.0 Nonrheumatic mitral (valve) insufficiency E03.9 Hypothyroidism, unspecified Q87.40 Marfan's syndrome, unspecified Office Visit 08/10/2018 12:39p [place] [facility] Edson Vogt I48.0 Paroxysmal atrial Of Latrell Smith MJanDJan fibrillation Q87.40 Marfan's syndrome, unspecified Z79.01 MCC (current) use of anticoagulants Office Visit 08/09/2018 [facility] Danial I48.91 Unspecified 10:37a Assocfatimah N.P. atrial Hospitalists fibrillation I77.810 Thoracic aortic ectasia M25.511 Pain in right shoulder I34.0 Nonrheumatic mitral (valve) insufficiency E03.9 Hypothyroidism, unspecified Q87.40 Marfan's syndrome, unspecified Office Visit 08/05/2018 [facility] Internal Zulay S13.8xxA Sprain of joints 11:10a Ninfa Kraus M.D. and ligaments of [place] oth prt neck, init encntr Office Visit 07/29/2018 [facility] Internal Henry Molina, M25.511 Pain in right 10:40a Medicine - DETAIL ASSEMBLER shoulder [place] Office Visit 01/19/2018 [place] Meir Bone, Q87.40 Marfan's syndrome, 2:40p Cardiology Of DWAYNE Lugo, unspecified [facility] Office Visit 11/09/2017 [place] Meir Bone, I48.0 Paroxysmal atrial 1:20p Cardiology Of [place]ney, DWAYNE, fibrillation [facility] Q87.40 Marfan's syndrome, unspecified I34.1 Nonrheumatic mitral (valve) prolapse Office Visit 10/20/2017 10:30a [facility] Internal Zulay I48.0 Paroxysmal atrial Ninfa Kraus M.D. fibrillation [place] E03.9 Hypothyroidism, unspecified Z23 Encounter for immunization Office Visit 10/14/2017 [facility] Yuriy I48.91 Unspecified atrial 8:30a Assocfatimah M.D. fibrillation Hospitalists Q87.40 Marfan's syndrome, unspecified E03.9 Hypothyroidism, unspecified Office Visit 10/14/2017 [place] [facility] Arlen Henderson, I48.0 Paroxysmal atrial 11:59a Of Latrell Lugo fibrillation Office Visit 10/13/2017 [facility] Berna I48.91 Unspecified atrial 8:29a Assoc,fatimah Madison D.O. 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 osteoporosis w/o [place] current pathological fracture E87.6 Hypokalemia E83.42 Hypomagnesemia R21 Rash and other nonspecific skin eruption Z13.220 Encounter for screening for lipoid disorders Z00.01 Encounter for general adult medical exam w abnormal findings Z12.4 Encounter for screening for malignant neoplasm of cervix H61.22 Impacted cerumen, left ear Office Visit 11/17/2016 3:00p [facility] Meir Bone, Q87.40 [facility] AT [facility] M.D., FACC, syndrome, FSCAI unspecified I34.0 Nonrheumatic mitral (valve) insufficiency I48.0 Paroxysmal atrial fibrillation I34.1 Nonrheumatic mitral (valve) prolapse Office Visit 09/09/2016 9:30a Surgical Darian Montero K35.3 Acute appendicitis [facility] Brittney Agosto with localized peritonitis Office Visit 08/25/2016 1:41p [facility] Ezequiel I48.0 Paroxysmal atrial Assoc,fatimah Wells M.D. fibrillation Hospitalists K35.3 Acute appendicitis with localized peritonitis E03.9 Hypothyroidism, unspecified Office Visit 08/24/2016 4:36p [facility] Viktor Romo I48.0 Paroxysmal atrial [facility] Pedro, DO fibrillation FAC Office Visit 08/24/2016 1[facility] Paroxysmal atrial Assoc,pc Touchlionel, DETAIL ASSEMBLER fibrillation Hospitalists K35.3 Acute appendicitis with localized peritonitis E03.9 Hypothyroidism, unspecified Office Visit 08/23/2016 [facility] [place] I48.0 Paroxysmal atrial 1:39p Assoc,pc [place], DETAIL ASSEMBLER fibrillation Hospitalists K35.3 Acute appendicitis with localized peritonitis E03.9 Hypothyroidism, unspecified Office Visit 08/21/2016 2:00p [facility] Internal [place], R10.31 Right lower Medicine - [place] DETAIL ASSEMBLER quadrant pain Rd R35.0 Frequency of micturition Office Visit 02/07/2016 10:45a Pulmonology And Yudi G47.33 Obstructive sleep Sleep Services Of [place] apnea (adult) [facility] (pediatric) Office Visit 02/05/2016 11:10a [facility] Internal [place] Z00.00 Encntr for Medicine - Brittney Kraus general adult [place] medical exam w/o abnormal findings Z12.31 Encntr screen mammogram for malignant neoplasm of breast E83.42 Hypomagnesemia E87.6 Hypokalemia Z11.59 Encounter for screening for other viral diseases Office Visit 12/18/2015 10:15a Pulmonology And Yudi G47.9 Sleep disorder, [facility] [place] unspecified [facility] Office Visit 12/03/2015 3:20p [facility] Meir Bone, I48.0 Paroxysmal atrial [facility] AT [facility] Brittney, FAC, fibrillation FSCAI I34.0 Nonrheumatic mitral (valve) insufficiency Q87.40 Marfan's syndrome, unspecified Office Visit 10/22/2015 11:10a [facility] Internal [place] B34.9 Viral infection, Ninfa Kraus M.D. unspecified [place] I48.0 Paroxysmal atrial fibrillation R74.0 Nonspec elev of levels of transamns & lactic acid dehydrgnse E87.6 Hypokalemia E83.42 Hypomagnesemia R06.83 Snoring Office Visit 10/19/2015 [facility] Yuriy I48.91 Unspecified atrial 10:43a Assoc,fatimah Bunch M.D. fibrillation Hospitalists Q87.40 Marfan's syndrome, unspecified I95.9 Hypotension, unspecified Office Visit 10/18/2015 [facility] Danial I48.91 Unspecified 10:42a Assoc,fatimah Mccain N.P. atrial Hospitalists fibrillation Q87.40 Marfan's syndrome, unspecified I95.9 Hypotension, unspecified Office Visit 10/18/2015 3:45p [place] Arlen Henderson, I48.0 Paroxysmal atrial Cardiology Of [place] fibrillation [facility] Office Visit 10/10/2015 3:40p [place] Meir Bone, I34.0 Nonrheumatic mitral Cardiology Of [place], [facility], (valve) [employer] AT [facility] FSCAI insufficiency I48.0 Paroxysmal atrial fibrillation I77.810 Thoracic aortic ectasia Office Visit 09/20/2015 [facility] Internal [place] B30.1 Conjunctivitis due 11:50a Ninfa Kraus M.D. to adenovirus [place] Office Visit 02/19/2015 Orthopedic Jd Dennis, 726.10 Bursae & Tendon 9:45a Services Of [place] Disorders Shoulder C.M.A. Region Unspec Office Visit 02/05/2015 Orth[facility] Jd Dennis, 840.4 Sprains & Strains 11:00a Services Of [place] Rotator Cuff C.M.A. (Capsule) Office Visit 12/14/2014 [place] Meir Bone, 427.31 Atrial Fibrillation 3:20p Cardiology Of [place], THADDEUS, L[place] AT [facility] FSCAI 424.0 Mitral Valve Disorder 759.82 Marfan Syndrome Office Visit 11/07/2014 10:50a [facility] Internal [place] 733.01 Osteoporosis Medicine Milly Kraus M.D. Senile [place] 786.2 Cough Office Visit 10/17/2014 9:10a [facility] Internal [place] V70.0 Examination Medicine Milly Kraus M.D. General Medical [place] Routine AT Health Care Facility V76.10 Screening For Malignant Neoplasm Breast 244.9 Hypothyroidism Other Unspec 733.90 Bone & Cartilage Disorder Unspec 840.4 Sprains & Strains Rotator Cuff (Capsule) V04.81 Need For Prophylactic Vaccination & Inoculation/Influenza V76.2 Screening Malignant Neoplasm Cervix V06.1 Bwtmnlgpsm-Apzhjhm-Uizlgklb Combined (DTaP) V72.31 Routine Metal Engraver Examination Office Visit 09/30/2014 10:58a [place] 427.31 Atrial Cardiology Brittney Becker Fibrillation 759.82 Marfan Syndrome Office Visit 09/30/2014 [facility] 427.31 Atrial 12:15p fatimah Evans M.D. Fibrillation Hospitalists 244.9 Hypothyroidism Other Unspec 759.82 Marfan Syndrome Office Visit 09/29/2014 [facility] 427.31 Atrial 12:14p fatimah Evans M.D. Fibrillation Hospitalists 244.9 Hypothyroidism Other Unspec 759.82 Marfan Syndrome Office Visit 09/29/2014 12:29p [facility] Jared Chaparro 427.31 Atrial Of [place] Garcia M.D., Fibrillation FACC, FASNC 424.0 Mitral Valve Disorder Office Visit 09/13/2014 2:20p [facility] Meir Bone 427.31 Atrial Of [place] AT [facility] MJuan, FACC, Fibrillation FSCAI 424.0 Mitral Valve Disorder Office Visit 03/21/2014 11:40a [facility] Internal Efrnprosper Jean, 088.81 Lyme Disease Medicine [facility] [place] [place] 300.00 Anxiety State Unspec Office Visit 09/05/2013 9:20a [facility] Internal Fernprosper Jean, 780.79 Malaise And Medicine - M.D., FACP Fatigue Other [place] V70.0 Examination General Medical Routine AT Health Care Facility V72.31 Routine Metal Engraver Examination V76.10 Screening For Malignant Neoplasm Breast 424.0 Mitral Valve Disorder 427.31 Atrial Fibrillation 244.9 Hypothyroidism Other Unspec 759.82 Marfan Syndrome V04.81 Need For Prophylactic Vaccination & Inoculation/Influenza 272.0 Hypercholesterolemia Pure v76.2 Screening Malignant Neoplasm Cervix Office Visit 08/04/2013 9:15a [facility] Meir Bone, 427.31 Atrial Of [facility] M.D., FAC, Fibrillation FSCAI 424.0 Mitral Valve Disorder Office Visit 07/11/2013 10:30a [facility] Meir Bone, 424.0 Mitral Valve [facility] AT [facility] M.D., FAC, Disorder FSCAI Office Visit 06/29/2013 10:00a [facility] Internal Fern Jean, 427.31 Atrial Medicine - M.D., FACP Fibrillation [place] 244.9 Hypothyroidism Other Unspec Office Visit 06/23/2013 8:40a [facility] Internal Fern Jean, 786.59 Pain Chest Medicine - M.D., FACP Other [place] 427.31 Atrial Fibrillation Office Visit 06/01/2013 10:20a [facility] Internal Fern Jean, 088.81 Lyme Disease Medicine - M.D., FACP [place] Office Visit 09/01/2012 1:20p [facility] Internal Fern Jean, V70.0 Examination Medicine - M.D., FACP General Medical [place] Routine AT Health Care Facility V72.31 Routine Metal Engraver Examination V76.10 Screening For Malignant Neoplasm Breast 244.9 Hypothyroidism Other Unspec 759.82 Marfan Syndrome 733.90 Bone & Cartilage Disorder Unspec 300.00 Anxiety State Unspec V04.81 Need For Prophylactic Vaccination & Inoculation/Influenza Office Visit 07/05/2012 11:00a [facility] Internal Oanh Bateman, 300.00 Anxiety State Medicine - M.D. Unspec [place] Office Visit 06/15/2012 11:20a [facility] Internal Oanh Bateman, 759.82 Marfan Syndrome Medicine - M.D. [place] 244.9 Hypothyroidism Other Unspec 785.1 Palpitations 300.00 Anxiety State Unspec Office Visit 06/10/2011 2:20p DO Not Use Fern Jean, 759.82 Marfan Syndrome Edy Lugo, FACP 477.9 Rhinitis Allergic Cause Unspec V72.31 Routine Metal Engraver Examination V70.0 Examination General Medical Routine AT Health Care Facility 244.9 Hypothyroidism Other Unspec Office Visit 03/19/2011 2:15p DO Not Use Fern Miranda, 366.00 Cataract Latrell-Jeny MJuan, FACP Nonsenile Unspec 759.82 Marfan Syndrome V72.84 Examination Preoperative Unspec V76.12 Screening Mammogram Malig Valentin Other Office Visit 06/25/2010 4:15p DO Not Use Fernprosper Jean, 692.6 Dermatitis Edy Lugo, FACP Contact Due To Plants (Except Food) Office Visit 02/27/2010 11:00a DO Not Use Fern Miranda, 733.90 Bone & Cartilage Edy Lugo, FACP Disorder Unspec Office Visit 01/30/2010 9:15a DO Not Use Fern Miranda, V72.31 Routine Metal Engraver Edy Lugo, FACP Examination 759.82 Marfan Syndrome V04.81 Need For Prophylactic Vaccination & Inoculation/Influenza Office Visit 07/31/2009 DO Not Use Francia Lancaster, 692.6 Dermatitis 3:00p [employer] Molder-[place] N.P. Contact Due To Plants (Except Food) Office Visit 02/01/2009 DO Not Use Fernprosper Jean, 716.99 Arthropathy 2:30p Edy Lugo, FACP Unspec Multiple Sites 759.82 Marfan Syndrome Office Visit 01/05/2009 1:15p DO Not Use Fern Miranda, V72.31 Routine Metal Engraver Edy Lugo, FACP Examination 719.40 Pain Joint Site Unspec 759.82 Marfan Syndrome 244.9 Hypothyroidism Other Unspec V04.81 Need For Prophylactic Vaccination & Inoculation/Influenza Office Visit 05/02/2008 DO Not Use Fern Miranda, V07.8 Other Unspecified 10:45a Edy Lugo, FACP Prophylactic Or Treatment Measure Office Visit 02/07/2008 DO Not Use Fernprosper Jean, 733.90 Bone & Cartilage 11:15a Edy Lugo, FACP Disorder Unspec Office Visit 12/27/2007 DO Not Use Fern Miranda, V72.31 Routine Metal Engraver [facility] Examination 733.90 Bone & Cartilage Disorder Unspec 244.9 Hypothyroidism Other Unspec 759.82 Marfan Syndrome 272.0 Hypercholesterolemia Pure Office Visit 11/24/2006 11:30a DO Not Use Fern Miranda, V72.31 Routine Metal Engraver Edy Lugo, FACP Examination V04.81 Need For Prophylactic Vaccination & Inoculation/Influenza Office Visit 09/15/2006 2:15p DO Not Use Fern Miranda, 466.0 Bronchitis Acute Edy Lugo, FACP Plan of Treatment Future Appointment(s):03/03/2019 10:50 am - Zulay Kraus M.D. at [facility] Internal Medicine - [id number]/28/2019 9:30 am - Ezequiel Call M.D. at [facility]02/22/2019 - Z[place] Kraus M.D.I83.10 Varicose veins of unspecified lower extremity with inflammatNew Xrays:Venous Doppler Lower Ross Ext, Ordered: 02/22/19Comments:ok to use Ibuprofen as needed for pain/ [id number] Localized edemaComments:its ok to take lasix every other day , try to take magensium 3 times a day , please do blood work on thursday
[2019-03-12 22:31] LABS: Hematocrit 46 % (33-41); Hemoglobin 15.3 g/dL (12.0-16.0); Mean Corpuscular HGB Conc 33 g/dL (31-36); Mean Corpuscular Hemoglobin 29 pg (27-31); Mean Corpuscular Volume 88 fL (80-97); Red Blood Count 5.23 10^6 /uL (3.70-4.87); Red Cell Distribution Width 16 % (10.5-15); White Blood Count 10.2 10^3/uL (3.5-10.8)
[2019-03-12 22:38] LABS: Albumin 2.5 g/dL (3.2-5.2); BUN/Creatinine Ratio 22.2 (8-20); Calcium 7.9 mg/dL (8.6-10.3); EGFR African American 99.3 (>60); EGFR Non-African American 82.1 (>60); Globulin 2.4 g/dL (2-4); Total Protein 4.9 g/dL (6.4-8.9)
[2019-03-12 22:40] LABS: Troponin I 0.03 ng/mL (<0.04)
[2019-03-12 22:52] LABS: ABS Basophils 0.1 10^3/ul (0-0.2); ABS Eosinophils 0.2 10^3/ul (0-0.6); ABS Lymphocytes 1.7 10^3/ul (1.0-4.8); ABS Monocytes 1.7 10^3/ul (0-0.8); ABS Neutrophils 6.4 10^3/ul (1.5-7.7); ABS Nucleated RBC 0.1 10^3/ul; Eosinophil % 2.4 %; Lymphocyte % 16.7 %; Mean Platelet Volume 10.6 fL (7.4-10.4); Nucleated Red Blood Cells % 0.4; Platelet Count 4 10^3/uL (150-450)
[2019-03-12 23:37] LABS: Hematocrit 47 % (33-41); Hematocrit for Retic CNT 47 % (33-41); Hemoglobin 15.8 g/dL (12.0-16.0); Mean Corpuscular HGB Conc 33 g/dL (31-36); Mean Corpuscular Hemoglobin 30 pg (27-31); Mean Corpuscular Volume 89 fL (80-97); Mean Platelet Volume 9.6 fL (7.4-10.4); Platelet Count 4 10^3/uL (150-450); RBC Retic Count 5.32 10^6/uL (3.70-4.87); Red Blood Count 5.32 10^6 /uL (3.70-4.87); Red Cell Distribution Width 15 % (10.5-15)
--- NOTE | 2019-03-12 23:46 | ED ---
Lower Extremity - HPI Summary HPI Summary: This patient is a 63 year old female presenting to [facility] with a chief complaint of edema in her extremities and abdomen since one month ago. She states the swelling started at her feet and moved up through her stomach. The patient reports general weakness, SOB upon exertion, ecchymosis, and diffuse abdominal pain. The patient states that she has been recently losing track of her thoughts. She rates her pain 8/10 in severity. - History of Current Complaint Chief Complaint: EDShortnessOfBreath Stated Complaint: SOB, BLOODY NOSE, BRUISING PER PT Time Seen by Provider: 03/12/19 23:07 Hx Obtained From: Patient Pain Intensity: 8 Pain Scale Used: 0-10 Numeric Associated Signs And Symptoms: Positive: Swelling Aggravating Factor(s): Ambulation - SOB - Allergies/Home Medications Allergies/Adverse Reactions: Allergies Allergy/AdvReac Type Severity Reaction Status Date / Time Sulfa (Sulfonamide Allergy Intermediate Rash Verified 03/12/19 20:18 Antibiotics) nickel Allergy Rash Verified 03/12/19 20:18 PMH/Surg Hx/FS Hx/Imm Hx Endocrine/Hematology History: Reports: Hx Thyroid Disease, Other Endocrine/ Hematological Disorders - HX LYMES DISEASE 2012 Denies: Hx Diabetes Cardiovascular History: Reports: Hx Atrial Fibrillation, Hx Hypertension, 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, Other Cardiovascular Problems/Disorders - HX TIA Denies: Hx Pacemaker/ICD, Hx Peripheral Vascular Disease History: Denies: Hx Dialysis, Hx Renal Disease Musculoskeletal History: Reports: Other Musculoskeletal History - MARFAN'S SYNDROME (CONTECTIVE TISSUE DISORDER) Denies: Hx Arthritis, Hx Rheumatoid Arthritis, Hx Osteoporosis Sensory History: Reports: Hx Cataracts - hx of cataract surgery Denies: Hx Contacts or Glasses, Hx Hearing Aid Opthamlomology History: Reports: Hx Cataracts - hx of cataract surgery Denies: Hx Contacts or Glasses Neurological History: Denies: Hx Headaches, Hx Seizures, Hx Transient Ischemic Attacks (TIA) Psychiatric History: Denies: Hx Anxiety, Hx Panic Disorder - Cancer History Hx Chemotherapy: No Hx Radiation Therapy: No - Surgical History Surgery Procedure, Year, and Place: BL CATARACT SURGERY, 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 - Immunization History Date of Tetanus Vaccine: "I think so" when asked if up to date Date of Influenza Vaccine: 2017 Infectious Disease History: Yes Infectious Disease History: Reports: Hx Shingles - NOT CURRENT Denies: Traveled Outside the [place] in Last 30 Days - Family History Known Family History: Positive: Cardiac Disease - father of [place], Other - Marfan syndrome - Social History Alcohol Use: Rare Alcohol Amount: GLASS OF WINE W/DINNER Hx Substance Use: No Substance Use Type: Reports: None Hx Tobacco Use: No Smoking Status (MU): Never Smoked Tobacco Review of Systems Positive: Shortness Of Breath Positive: Abdominal Pain Positive: Bruising Neurological: Other - Occasional confusion Positive: Weakness All Other Systems Reviewed And Are Negative: Yes Physical Exam - Summary Physical Exam Summary: VITAL SIGNS: Reviewed. GENERAL: Patient is a well-developed and nourished FEMALE who is lying comfortable in the stretcher. Patient is not in any acute respiratory distress. HEAD AND FACE: No signs of trauma. No ecchymosis, hematomas or skull depressions. No sinus tenderness. EYES: PERRLA, EOMI x 2, No injected conjunctiva, no nystagmus. EARS: Hearing grossly intact. Ear canals and tympanic membranes are within normal limits. MOUTH: Oropharynx within normal limits. NECK: Supple, trachea is midline, no adenopathy, no JVD, no carotid bruit, no c- spine tenderness, neck with full ROM. CHEST: Symmetric, no tenderness at palpation LUNGS: Clear to auscultation bilaterally. No wheezing or crackles. CVS: Regular rate and rhythm, S1 and S2 present, no murmurs or gallops appreciated. ABDOMEN: Soft, non-tender. No signs of distention. No rebound no guarding, and no masses palpated. Bowel sounds are normal. EXTREMITIES: FROM in all major joints, no cyanosis or clubbing. Edema in her lower extremities up to her waist bilaterally. NEURO: Alert and oriented x 3. No acute neurological deficits. Speech is normal and follows commands. SKIN: Dry and warm. Ecchymosis on upper extremities. Triage Information Reviewed: Yes Vital Signs On Initial Exam: Initial Vitals Temp Pulse Resp BP Pulse Ox 97.8 F 72 18 102/68 98 03/12/19 20:17 03/12/19 20:17 03/12/19 20:17 03/12/19 20:17 03/12/19 20:17 Vital Signs Reviewed: Yes Diagnostics - Vital Signs Vital Signs Temp Pulse Resp BP Pulse Ox 03/12/19 23:27 71 20 104/67 96 03/12/19 23:25 74 96 03/12/19 20:17 97.8 F 72 18 102/68 98 - Laboratory Lab Results: Lab Results 03/12/19 03/12/19 03/12/19 Range/Units 22:02 22:02 22:02 WBC 10.2 (3.5-10.8) 10^3/uL RBC 5.23 H (3.70-4.87) 10^6 /uL RBC (Retic) (3.70-4.87) 10^6/uL Hgb 15.3 (12.0-16.0) g/dL Hct 46 H (33-41) % HCT (Retic) (33-41) % MCV 88 (80-97) fL MCH 29 (27-31) pg MCHC 33 (31-36) g/dL RDW 16 H (10.5-15) % Plt Count 4 L* (150-450) 10^3/uL MPV 10.6 H (7.4-10.4) fL Neut % (Auto) 62.5 % Lymph % (Auto) 16.7 % [place] % (Auto) 17.0 % Eos % (Auto) 2.4 % Baso % (Auto) 1.4 % Absolute Neuts (auto) 6.4 (1.5-7.7) 10^3/ul Absolute Lymphs (auto) 1.7 (1.0-4.8) 10^3/ul Absolute Monos (auto) 1.7 H (0-0.8) 10^3/ul Absolute Eos (auto) 0.2 (0-0.6) 10^3/ul Absolute Basos (auto) 0.1 (0-0.2) 10^3/ul Absolute Nucleated RBC 0.1 10^3/ul Nucleated RBC % 0.4 Retic Count, Calc Corrected Retic Count Retic Shift Factor Retic Production Index Immature Retic Fraction Mean Retic Volume Hem Pathologist Commnt Pending Sodium 130 L (135-145) mmol/L Potassium 5.0 (3.5-5.0) mmol/L Chloride 104 (101-111) mmol/L Carbon Dioxide 23 (22-32) mmol/L Anion Gap 3 (2-11) mmol/L BUN 16 (6-24) mg/dL Creatinine 0.72 (0.51-0.95) mg/dL Est GFR ( Amer) 99.3 (>60) Est GFR (Non-Af Amer) 82.1 (>60) BUN/Creatinine Ratio 22.2 H (8-20) Glucose 119 H (70-100) mg/dL Lactic Acid 1.2 (0.5-2.0) mmol/L Calcium 7.9 L (8.6-10.3) mg/dL Total Bilirubin 1.00 (0.2-1.0) mg/dL AST 13 (13-39) U/L ALT 8 (7-52) U/L Alkaline Phosphatase 29 L (34-104) U/L CK-MB (CK-2) 2.0 (0.6-6.3) ng/mL Troponin I 0.03 (<0.04) ng/mL B-Natriuretic Peptide (<=100) pg/mL Total Protein 4.9 L (6.4-8.9) g/dL Albumin 2.5 L (3.2-5.2) g/dL Globulin 2.4 (2-4) g/dL Albumin/Globulin Ratio 1.0 (1-3) Blood Type Antibody Screen 03/12/19 03/12/19 03/12/19 Range/Units 22:02 23:28 23:28 WBC 11.0 H (3.5-10.8) 10^3/uL RBC 5.32 H (3.70-4.87) 10^6 /uL RBC (Retic) 5.32 H (3.70-4.87) 10^6/uL Hgb 15.8 (12.0-16.0) g/dL Hct 47 H (33-41) % HCT (Retic) 47 H (33-41) % MCV 89 (80-97) fL MCH 30 (27-31) pg MCHC 33 (31-36) g/dL RDW 15 (10.5-15) % Plt Count 4 L* (150-450) 10^3/uL MPV 9.6 (7.4-10.4) fL Neut % (Auto) Pending % Lymph % (Auto) Pending % [place] % (Auto) Pending % Eos % (Auto) Pending % Baso % (Auto) Pending % Absolute Neuts (auto) Pending (1.5-7.7) 10^3/ul Absolute Lymphs (auto) Pending (1.0-4.8) 10^3/ul Absolute Monos (auto) Pending (0-0.8) 10^3/ul Absolute Eos (auto) Pending (0-0.6) 10^3/ul Absolute Basos (auto) Pending (0-0.2) 10^3/ul Absolute Nucleated RBC Pending 10^3/ul Nucleated RBC % Pending Retic Count, Calc Pending Corrected Retic Count Pending Retic Shift Factor 1.0 Retic Production Index Pending Immature Retic Fraction Pending Mean Retic Volume Pending Hem Pathologist Commnt Sodium (135-145) mmol/L Potassium (3.5-5.0) mmol/L Chloride (101-111) mmol/L Carbon Dioxide (22-32) mmol/L Anion Gap (2-11) mmol/L BUN (6-24) mg/dL Creatinine (0.51-0.95) mg/dL Est GFR ( Amer) (>60) Est GFR (Non-Af Amer) (>60) BUN/Creatinine Ratio (8-20) Glucose (70-100) mg/dL Lactic Acid (0.5-2.0) mmol/L Calcium (8.6-10.3) mg/dL Total Bilirubin (0.2-1.0) mg/dL AST (13-39) U/L ALT (7-52) U/L Alkaline Phosphatase (34-104) U/L CK-MB (CK-2) (0.6-6.3) ng/mL Troponin I (<0.04) ng/mL B-Natriuretic Peptide 29 (<=100) pg/mL Total Protein (6.4-8.9) g/dL Albumin (3.2-5.2) g/dL Globulin (2-4) g/dL Albumin/Globulin Ratio (1-3) Blood Type Pending Antibody Screen Pending Result Diagrams: 03/12/19 23:28 03/12/19 22:02 Lab Statement: Any lab studies that have been ordered have been reviewed, and results considered in the medical decision making process. - Radiology CXR Radiology Interpretation Completed By: ED Physician Summary of Radiographic Findings: No acute process. Pending official radiologist report. Lower Extremity Course/Dx - Course Course Of Treatment: This patient is a 63 year old female presenting to [facility] with a chief complaint of edema in her extremities and abdomen since one month ago. Her Plt count is 4 L. Care was discussed with Dr. Beauchamp, hematology, who stated the patient should be admitted for blood transfusions. Dr. Wells, hospitalist, accepted the patient for admission. - Diagnoses Provider Diagnoses: Thrombocytopenia - Physician Notifications Discussed Care Of Patient With: Jose Beauchamp - Hematology Time Discussed With Above Provider: 23:52 - Needs blood transfusion. Instructed by Provider To: Admit As Inpatient Discharge - Sign-Out/Discharge Documenting (check all that apply): Patient Departure - Admission - Discharge Plan Disposition: ADMITTED TO [facility] Referrals: Zulay Kraus MD [Primary Care Provider] - - Attestation Statements Document Initiated by Bolaibe: Yes Documenting Scribe: Ezequiel Hutson Provider For Whom Bolaibe is Documenting (Include Credential): Katie Weaver MD Scribe Attestation: IEzequiel scribed for Katie Weaver MD on 03/13/19 at 0024. Status of Scribe Document: Ready
[2019-03-13] LABS: C Reactive Protein 3.35 mg/L (<8.01)
[2019-03-13 00:07] LABS: ABS Basophils 0.2 10^3/ul (0-0.2); ABS Eosinophils 0.3 10^3/ul (0-0.6); ABS Lymphocytes 1.7 10^3/ul (1.0-4.8); ABS Monocytes 1.8 10^3/ul (0-0.8); ABS Nucleated RBC 0 10^3/ul; Eosinophil % 2.6 %; Lymphocyte % 15.6 %; Nucleated Red Blood Cells % 0.2
[2019-03-13 00:16] LABS: Activated Partial Thrombo Time 32.3 seconds (26.0-36.3); INR 1.32 (0.77-1.02)
[2019-03-13 00:17] LABS: Corrected Retic Count 2.6 % (0.5-1.5)
[2019-03-13] MEDS ORDERED: Ondansetron INJ* 2 MG/ML VIAL IV PRN (01:00)
[2019-03-13 01:31] LABS: Folate 9.33 ng/mL (>3.99)
--- NOTE | 2019-03-13 03:00 | HP ---
CC: Dr. Ennis; Dr. Henderson HISTORY AND PHYSICAL: DATE OF ADMISSION: PRIMARY CARE PROVIDER: Dr. Ennis. TOLL TESTBOARD WORKER: Dr. Henderson. HEALTHCARE PROXY: Her partner, Beto. CODE STATUS: Full. CHIEF COMPLAINT: Bilateral lower extremity swelling. HISTORY OF PRESENT ILLNESS: This is a 63-year-old female with past medical history of Marfan's, who has been experiencing since 02/07/19 bilateral lower extremity swelling that has been slowly ascendin g to her abdomen associated with increasing pain in her legs and her abdomen, concordant with increas ing swelling. She notes there has been a gradual progression that has come to involve her abdomen ov er the last 1-1/2 weeks. She has been seen by Dr. Ennis who has been evaluating her for this progre ssing swelling. In association with the edema, she has noted intermittent shortness of breath that i s worse with exertion. She has previously had unlimited exercise tolerance, now gets short of breath and fatigued with about 5 minutes of walking. She has noted new nausea in the morning and decreased p.o. intake over the same approximately 6 weeks, but denies orthopnea and/or PND. She has noted ove r the last 9 days, she has started to experience bilateral arm bruising as well as intermittent epist axis. She has had no new medications, but has noted some decrease in medications including her vitam in C and vitamin E and decreasing doses of other medications at the behest of her care team. Today, she noted low-grade fevers intermittently with T-max measured at about 100, but no night sweats. Her weight has been increasing, but she notes she has had bilateral lower extremity swelling over the sa me time and is unsure whether that weight represents her true increased dry weight. The patient pres ented to the hospital because of increasing fatigue as well as the increasing swelling. She was foun d with platelet count of 4000, which was stable on repeat for which the hospitalist service was consu lted for admission. PAST MEDICAL HISTORY: Includes atrial fibrillation, thoracic aortic ectasia, osteopenia, mitral valv e insufficiency, hypothyroidism, Marfan's, cataract, shingles, appendicitis without operation, Lyme d isease. HOME MEDICATIONS: Include: 1. Magnesium 400 mg. 2. Irbesartan 37.5 mg daily. 3. Potassium chloride 10 mEq twice daily. 4. Sotalol 60 mg twice daily. 5. Xarelto 20 mg daily. ALLERGIES: SULFA and NICKEL. FAMILY HISTORY: Mother with CVA. Father with Marfan's and CAD. SOCIAL HISTORY: No tobacco, rare alcohol. Lives with her partner. 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 REVIEW OF SYSTEMS: As per HPI including bilateral lower extremity swelling, fatigue, nausea, low-gra de fevers, epistaxis, bruising, and weight gain. Otherwise, all other systems reviewed are negative. PHYSICAL EXAMINATION GENERAL: Sitting up in the bed, interactive, pleasant, in no apparent distress. VITAL SIGNS: When seen by this author, blood pressure 105/70, heart rate 64, respiratory rate is 16, T-max in the emergency room is 97.8. She is 96% on room air. HEENT: She does have notable left ptosis, which is not thought to be new from her partner. Orophary nx is clear. No petechiae. LUNGS: Her lungs are clear. HEART: She has regular rate and rhythm. No murmurs. ABDOMEN: Soft and nontender. There is no swelling identified. EXTREMITIES: Warm and well perfused. She has about 3+ pitting edema extending from her feet all the way up to her thighs. NEUROLOGIC: She is alert and oriented x3. Ptosis as indicated above. Otherwise, cranial nerves are intact. No cervical or supraclavicular lymphadenopathy. DIAGNOSTIC STUDIES/LAB DATA: Labs reviewed: White blood cell count of 11,000, hemoglobin is 15.8, platelets are 4 which is stable on repeat. Pathologist's comment is pending. INR is 1.3. BUN is 16 , creatinine is 0.75. LDH is 185, CRP is 3.35, BNP is 29, albumin is 2.5. Folate, B12, and HIV are pending. Recent HCV is negative. Data reviewed: Brain CT, impression: No acute intracranial abnormality; arachnoid cyst in the left cranial fossa, slightly larger compared to prior. Chest x-ray: No active cardiopulmonary disease. ASSESSMENT AND PLAN: This is a 63-year-old female with past medical history of Marfan's as well as a trial fibrillation, on Xarelto, presenting with bilateral lower extremity edema, found with new onset thrombocytopenia. 1. Thrombocytopenia. 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 B12 and folate are pending. Copper was not checked. HCV was negative in 2016. Ch ecking HIV, although in monogamous relationship. Heme consult. Two units of platelets and then rech arcenio 1 hour after receiving platelets. Unclear how to link this with her presenting symptoms of lower extremity swelling. I will continue to collect data and reassess after echocardiogram and ultrasoun d of her abdomen, response to platelets. 2. Atrial fibrillation. Holding Xarelto. Continue sotalol. 3. Bilateral lower extremity swelling. Adding urine protein and creatinine to urine studies. Check urinalysis. Check transthoracic echocardiogram as well as ultrasound of her liver with Doppler to e valuate portal vein. 4. DVT prophylaxis. Hold all DVT prophylaxis. 5. Left eye ptosis. Does raise the prospect of Pancoast tumor in the setting of new onset of thromb ocytopenia as well as swelling, not identified on this author's view of chest x-ray, however, careful attention to official read tomorrow. [id number]/[facility] #: [id number]
[2019-03-13 05:08] LABS: Urine Creatinine Concentration 189.78 mg/dL
[2019-03-13 05:14] LABS: Urine Appearance Cloudy; Urine Bacteria Absent (Absent); Urine Bilirubin Negative (Negative); Urine Blood Negative (Negative); Urine Color Amber; Urine Glucose Negative (Negative); Urine Ketones Negative (Negative); Urine Nitrite Negative (Negative); Urine Protein 1+(30 mg/dL) (Negative); Urine Red Blood Cell Absent (Absent); Urine Specific Gravity 1.026 (1.010-1.030); Urine Squamous Epithelial Cell Present (Absent); Urine Urobilinogen Negative (Negative); Urine White Blood Cell Trace(0-5/hpf) (Absent)
[2019-03-13] MEDS ORDERED: Sotalol TAB* 80 MG PO SCH (09:00)
[2019-03-13] MEDS ORDERED: Sotalol TAB* 80 MG PO ONE (10:00)
[2019-03-13] MEDS: SOTALOL 120 MG PO SCH ×2 (10:36→22:35)
[2019-03-13] MEDS: Multivitamins/Minerals TAB PO SCH (10:37)
[2019-03-13] MEDS: Thiamine TAB* 100 MG TAB PO SCH (10:37)
[2019-03-13] MEDS: Folic Acid TAB* 1 MG PO SCH (10:37)
[2019-03-13] MEDS: Magnesium Oxide TAB* 400 MG PO SCH ×2 (10:38→22:35)
--- NOTE | 2019-03-13 12:44 | PN ---
Subjective Date of Service: 03/13/19 Interval History: Patient seen today, in the room she is in the process of receiving her first unit of platelet. no active bleed. admitted last night for leg swelling and erythema and found to have thrombocytopenia with platelet of 4000. no active bleed but does have increase ecchymosis and epistaxsis at home Past Medical History: Unchanged from Admission Objective Active Medications: Acetaminophen (Tylenol Tab*) 650 mg PO Q4H PRN PRN Reason: FEVER/PAIN Cyanocobalamin (Vitamin B12 Tab*) 5,000 mcg PO DAILY [facility] Folic Acid (Folvite Tab*) 1 mg PO DAILY [facility] Last Admin: 03/13/19 10:37 Dose: 1 mg Magnesium Oxide (Magox 400 Tab*) 400 mg PO BID [facility] Last Admin: 03/13/19 10:38 Dose: 400 mg Multivitamins/Minerals (Theragran/Minerals Tab*) 1 tab PO DAILY [facility] Last Admin: 03/13/19 10:37 Dose: 1 tab Ondansetron HCl (Zofran Inj*) 4 mg IV Q4H PRN PRN Reason: NAUSEA/VOMITING Sotalol HCl (Sotalol (Nf)) 60 mg PO BID [facility] Last Admin: 03/13/19 10:36 Dose: 60 mg Thiamine HCl (Vitamin B-1 Tab*) 100 mg PO DAILY [facility] Last Admin: 03/13/19 10:37 Dose: 100 mg Vital Signs - 8 hr 03/13/19 03/13/19 04:52 07:34 Temperature 98 F 98.2 F Pulse Rate 98 73 Respiratory 18 20 Rate Blood Pressure 114/61 99/51 (mmHg) O2 Sat by Pulse 97 96 Oximetry Oxygen Devices in Use Now: None Appearance: Awake, alert no acute distress. comfortable resting but very anxious Eyes: No Scleral Icterus, - - EOMI Ears/Nose/Mouth/Throat: NL Teeth, Lips, Gums, Mucous Membranes Moist Neck: NL Appearance and Movements; NL JVP Respiratory: Symmetrical Chest Expansion and Respiratory Effort, Clear to Auscultation Cardiovascular: NL Sounds; No Murmurs; No JVD Abdominal: NL Sounds; No Tenderness; No Distention Extremities: - - + 3 edema Skin: - - ecchymosis Neurological: Alert and Oriented x 3 Result Diagrams: 03/12/19 23:28 03/12/19 22:02 Additional Lab and Data: Lab Results 03/12/19 03/12/19 03/12/19 Range/Units 22:02 22:02 22:02 WBC 10.2 (3.5-10.8) 10^3/uL RBC 5.23 H (3.70-4.87) 10^6 /uL RBC (Retic) (3.70-4.87) 10^6/uL Hgb 15.3 (12.0-16.0) g/dL Hct 46 H (33-41) % HCT (Retic) (33-41) % MCV 88 (80-97) fL MCH 29 (27-31) pg MCHC 33 (31-36) g/dL RDW 16 H (10.5-15) % Plt Count 4 L* (150-450) 10^3/uL MPV 10.6 H (7.4-10.4) fL Neut % (Auto) 62.5 % Lymph % (Auto) 16.7 % [place]lette % (Auto) 17.0 % Eos % (Auto) 2.4 % Baso % (Auto) 1.4 % Absolute Neuts (auto) 6.4 (1.5-7.7) 10^3/ul Absolute Lymphs (auto) 1.7 (1.0-4.8) 10^3/ul Absolute Monos (auto) 1.7 H (0-0.8) 10^3/ul Absolute Eos (auto) 0.2 (0-0.6) 10^3/ul Absolute Basos (auto) 0.1 (0-0.2) 10^3/ul Absolute Nucleated RBC 0.1 10^3/ul Nucleated RBC % 0.4 Retic Count, Calc Corrected Retic Count Retic Shift Factor Retic Production Index Immature Retic Fraction Mean Retic Volume Hem Pathologist Commnt Pending Sodium 130 L (135-145) mmol/L Potassium 5.0 (3.5-5.0) mmol/L Chloride 104 (101-111) mmol/L Carbon Dioxide 23 (22-32) mmol/L Anion Gap 3 (2-11) mmol/L BUN 16 (6-24) mg/dL Creatinine 0.72 (0.51-0.95) mg/dL Est GFR ( Amer) 99.3 (>60) Est GFR (Non-Af Amer) 82.1 (>60) BUN/Creatinine Ratio 22.2 H (8-20) Glucose 119 H (70-100) mg/dL Lactic Acid 1.2 (0.5-2.0) mmol/L Calcium 7.9 L (8.6-10.3) mg/dL Total Bilirubin 1.00 (0.2-1.0) mg/dL AST 13 (13-39) U/L ALT 8 (7-52) U/L Alkaline Phosphatase 29 L (34-104) U/L CK-MB (CK-2) 2.0 (0.6-6.3) ng/mL Troponin I 0.03 (<0.04) ng/mL B-Natriuretic Peptide (<=100) pg/mL Total Protein 4.9 L (6.4-8.9) g/dL Albumin 2.5 L (3.2-5.2) g/dL Globulin 2.4 (2-4) g/dL Albumin/Globulin Ratio 1.0 (1-3) Blood Type Antibody Screen 03/12/19 03/12/19 03/12/19 Range/Units 22:02 23:28 23:28 WBC 11.0 H (3.5-10.8) 10^3/uL RBC 5.32 H (3.70-4.87) 10^6 /uL RBC (Retic) 5.32 H (3.70-4.87) 10^6/uL Hgb 15.8 (12.0-16.0) g/dL Hct 47 H (33-41) % HCT (Retic) 47 H (33-41) % MCV 89 (80-97) fL MCH 30 (27-31) pg MCHC 33 (31-36) g/dL RDW 15 (10.5-15) % Plt Count 4 L* (150-450) 10^3/uL MPV 9.6 (7.4-10.4) fL Neut % (Auto) Pending % Lymph % (Auto) Pending % Sublette % (Auto) Pending % Eos % (Auto) Pending % Baso % (Auto) Pending % Absolute Neuts (auto) Pending (1.5-7.7) 10^3/ul Absolute Lymphs (auto) Pending (1.0-4.8) 10^3/ul Absolute Monos (auto) Pending (0-0.8) 10^3/ul Absolute Eos (auto) Pending (0-0.6) 10^3/ul Absolute Basos (auto) Pending (0-0.2) 10^3/ul Absolute Nucleated RBC Pending 10^3/ul Nucleated RBC % Pending Retic Count, Calc Pending Corrected Retic Count Pending Retic Shift Factor 1.0 Retic Production Index Pending Immature Retic Fraction Pending Mean Retic Volume Pending Hem Pathologist Commnt Sodium (135-145) mmol/L Potassium (3.5-5.0) mmol/L Chloride (101-111) mmol/L Carbon Dioxide (22-32) mmol/L Anion Gap (2-11) mmol/L BUN (6-24) mg/dL Creatinine (0.51-0.95) mg/dL Est GFR ( Amer) (>60) Est GFR (Non-Af Amer) (>60) BUN/Creatinine Ratio (8-20) Glucose (70-100) mg/dL Lactic Acid (0.5-2.0) mmol/L Calcium (8.6-10.3) mg/dL Total Bilirubin (0.2-1.0) mg/dL AST (13-39) U/L ALT (7-52) U/L Alkaline Phosphatase (34-104) U/L CK-MB (CK-2) (0.6-6.3) ng/mL Troponin I (<0.04) ng/mL B-Natriuretic Peptide 29 (<=100) pg/mL Total Protein (6.4-8.9) g/dL Albumin (3.2-5.2) g/dL Globulin (2-4) g/dL Albumin/Globulin Ratio (1-3) Blood Type Pending Antibody Screen Pending Assess/Plan/Problems-Billing Assessment: 63 y/o female admitted for acute thrombocytopenia 4000 no active bleed. Working diagnosis ITP pending full and final work up - Patient Problems (1) Thrombocytopenia Current Visit: Yes Status: Acute Code(s): D69.6 - THROMBOCYTOPENIA, UNSPECIFIED SNOMED Code(s): 745159557 Comment: - Admitted for plt of 4000 acute as far as her availalbe previous CBC - Last CBC available for review dates back to fall 2017 and was >200 - Hem/Onc consulted. Discussed case with Jose Beauchamp from Hem-Onc. the plan is to complete the platelet #1 being transfused now, wait one hour and recheck her cbc. If platelet does not improve after transfusion with appropriate response, this will support the diagnosis of ITP and we can initiate dexamethasone 40 mg daily for 4-5 days. If the platelet improves will monitor and hold on on further transfusion unless she does have active bleed,. - She will need BM bx soon. - I don't think she has TTP as there is not schistocytes on Peripheral smears, Dr. Coyle to manually review the slide. I doubht HUS as she has normal renal functions (2) B12 deficiency Current Visit: Yes Status: Acute Code(s): E53.8 - DEFICIENCY OF OTHER SPECIFIED B GROUP VITAMINS SNOMED Code(s): 666127257 Comment: - B12 107 - I will avoid IM with platelet of 4000 - Will give her PO 5000 daily for a week unless her platelet improves and we can use IM B12. (3) Atrial fibrillation Current Visit: No Status: Chronic Priority: High Onset Date: 09/29/14 Code(s): I48.91 - UNSPECIFIED ATRIAL FIBRILLATION SNOMED Code(s): 17126032 Comment: - Currenlty in sinus, S/P cardioversion by Dr. Smith in 2018. - Continue sotalol 60 mg bid (may use her own) - Xaretlo on hold given her thrombocytopenia (4) Hypothyroidism Current Visit: No Status: Chronic Code(s): E03.9 - HYPOTHYROIDISM, UNSPECIFIED SNOMED Code(s): 23193630 Comment: - She is not on any thyroid supplement currently - I will check her am THS and FT4 to ensure she is in a euthyroid state - At one time in 2017 she was on as high as 100 mcg daily (5) Marfan's syndrome Current Visit: No Status: Chronic Code(s): Q87.40 - MARFAN'S SYNDROME, UNSPECIFIED SNOMED Code(s): 04020836 Comment: - Continue outpatient follow-up with PCP. - Abdominal aorta 2.[address] abdomen 02/2019; CTA chest 08/09/2018 did not show any evidence of aneurysm or dissections. - unless repeat CT of chest is warranted as part as work up for her thrombocytopenia if recommended by hem/onc, no need to repeat it now as part as routine screen process for aneurysm due to Marfan history (6) Edema Current Visit: Yes Status: Acute Code(s): R60.9 - EDEMA, UNSPECIFIED SNOMED Code(s): 652473704 Comment: - Undiffentiated yet. - Differential include but not limited to CHF/Hypoalbunemia/Nephrotic syndrome/ cirrhosis/hypothyroidism/obstructive lymphadenopahty/DVT - Echo ordered for am - Added LFT to am labs - CT abdomen 03/08/19 did not show acute pathology on CT scan - will get 24 hour urine collection for protein - check jennifer vein US rule out portal vein thrombosis - US of leg done twice as outpatient within a month and both negative for DVT (7) DVT prophylaxis Current Visit: No Status: Acute Code(s): NGS8014 - SNOMED Code(s): 898177800 Comment: - SCD for now
--- NOTE | 2019-03-13 14:03 | ECHO ---
Patient: NICKY MOORE [facility] Rec#: [id number] : 1955 Date: 03/13/2019 Age: 63y Height: 178 cm / 70.1 in Weight: 82 kg / 180.7 lbs Sex: F BSA: 2 Room#: [facility] Admit Date#: 03/13/2019 Type: Inpatient Referring: RYAN BEYER Reading: Cali Becker MD [employer] Mechanic: Debra Montejo RDCS,RDMS CC: JER MENA Transthoracic Echocardiogram Indication: Edema, SOB BP: 114/61 HR: 65 Rhythm: NSR with PACs Findings History: Marfans, AFIB, MV disorder, dilated AO root Technical Comments: The study quality is fair. Left Ventricle: The left ventricular chamber size is normal. Mild to moderate concentric left ventricular hypertrophy is observed. The estimated ejection fraction is 55-60%. Abnormal left ventricular diastolic function is observed. Abnormal left ventricular diastolic filling is observed, consistent with impaired relaxation. Left Atrium: The left atrium is moderately dilated. Right Ventricle: The right ventricular chamber size and systolic function are within normal limits. Right Atrium: The right atrium is mildly dilated. Aortic Valve: The aortic valve is trileaflet. Systolic excursion of the aortic valve is normal. There is a trace of aortic regurgitation. There is no evidence of aortic stenosis. Mitral Valve: The mitral valve leaflets are mildly thickened. There is moderate mitral valve prolapse. There is mild mitral regurgitation. The degree of MR may be underestimated due to technical issues. The mitral regurgitant jet is posteriorly directed. There is no evidence of mitral stenosis. Tricuspid Valve: The tricuspid valve leaflets are normal. There is trace to mild tricuspid regurgitation. No pulmonary hypertension is noted. Pulmonic Valve: The pulmonic valve structure is not well visualized. There is no evidence of pulmonic regurgitation. Pericardium: There is no significant pericardial effusion. Aorta: There is moderate dilatation of the ascending aorta. There is no dilatation of the aortic arch. There is moderate dilatation of the aortic root. Pulmonary Artery: The main pulmonary artery is not well visualized. Venous: The inferior vena cava is not visualized. Conclusions Mild to moderate concentric left ventricular hypertrophy is observed. The estimated ejection fraction is 55-60%. Abnormal left ventricular diastolic filling is observed, consistent with impaired relaxation. The left atrium is moderately dilated. The right atrium is mildly dilated. There is a trace of aortic regurgitation. There is moderate mitral valve prolapse. There is mild mitral regurgitation. The degree of MR may be underestimated due to technical issues. The mitral regurgitant jet is posteriorly directed. There is trace to mild tricuspid regurgitation. There is moderate dilatation of the ascending aorta. There is moderate dilatation of the aortic root. Compared to 01/3019, the aortic measurements are similar. The MR was assessed as Moderate last time c/t mild this time. The MR may be underestimated as stated above. Consider BUDDY to assess the Mitral Regurgitation if clinically indicated. Measurements Name Value Normal Range RVIDd (AP) 2D 2 cm (0.9 - 2.6) RVDdMajor (2D) 4.5 cm (2.2 - 4.4) RAd ISD 4CH 5.4 cm (3.4 - 4.9) RA (A4C)W 5.2 cm (2.9 - 4.6) IVSd (2D) 1.3 cm (0.6 - 1) LVPWd (2D) 1.1 cm (0.6 - 1) LVIDd (2D) 5.1 cm (3.6 - 5.4) LVIDs (2D) 4.2 cm - LV FS (2D) 18 % (25 - 45) Aortic Annulus 3.1 cm (1.4 - 2.6) Ao root diameter (2D) 4.4 cm (2.1 - 3.5) Ascending Ao 3.6 cm (2.1 - 3.4) Aortic arch 2.9 cm (1.8 - 3.4) LA dimension (AP) 2D 4.1 cm (2.3 - 3.8) LAd ISD 4CH 5.7 cm (2.9 - 5.3) LA ISD 4CH W 4.6 cm (2.5 - 4.5) Name Value Normal Range LA ESV BP (A/L) index 39 ml/m2 - Name Value Normal Range MV E-wave Vmax 0.4 m/sec - MV deceleration time 148 msec - MV A-wave Vmax 0.5 m/sec - MV E:A ratio 0.8 ratio - LV septal e' Vmax 0.05 m/sec - LV lateral e' Vmax 0.07 m/sec - LV E:e' septal ratio 8 ratio - LV E:e' lateral ratio 6 ratio - Name Value Normal Range AV Vmax 1.3 m/sec - AV VTI 27 cm - AV peak gradient 7 mmHg - AV mean gradient 4 mmHg - LVOT Vmax 1 m/sec - LVOT VTI 20 cm - LVOT peak gradient 4 mmHg - LVOT mean gradient 2 mmHg - KIRSTY Vmax 0.8 m/sec - Name Value Normal Range TR Vmax 2.2 m/sec - TR peak gradient 20 mmHg - RAP 3 mmHg - RVSP 23 mmHg - Name Value Normal Range PV Vmax 0.7 m/sec - PV peak gradient 2 mmHg -
[2019-03-13] MEDS: Cyanocobalamin TAB* 500 MCG PO SCH (14:30)
[2019-03-13 14:52] LABS: ABS Basophils 0.1 10^3/ul (0-0.2); ABS Eosinophils 0.2 10^3/ul (0-0.6); ABS Lymphocytes 1.5 10^3/ul (1.0-4.8); ABS Monocytes 1.1 10^3/ul (0-0.8); ABS Neutrophils 4.5 10^3/ul (1.5-7.7); ABS Nucleated RBC 0 10^3/ul; Eosinophil % 2.5 %; Hematocrit 38 % (33-41); Hemoglobin 12.6 g/dL (12.0-16.0); Lymphocyte % 20.7 %; Mean Corpuscular HGB Conc 33 g/dL (31-36); Mean Corpuscular Hemoglobin 29 pg (27-31); Mean Corpuscular Volume 88 fL (80-97); Mean Platelet Volume 8.8 fL (7.4-10.4); Nucleated Red Blood Cells % 0.1; Platelet Count 4 10^3/uL (150-450); Red Blood Count 4.33 10^6 /uL (3.70-4.87); Red Cell Distribution Width 15 % (10.5-15); White Blood Count 7.4 10^3/uL (3.5-10.8)
[2019-03-13 15:06] LABS: Calcium 7.6 mg/dL (8.6-10.3); Potassium 4.2 mmol/L (3.5-5.0)
[2019-03-13] MEDS: Dexamethasone TAB* 4 MG PO SCH (15:48)
[2019-03-13 16:06] LABS: BUN/Creatinine Ratio 23.8 (8-20); EGFR African American 115.9 (>60); EGFR Non-African American 95.8 (>60)
--- NOTE | 2019-03-13 18:19 | CONS ---
CC: Dr. Kraus; Dr. Henderson; Dr. Coyle * HEMATOLOGY CONSULTATION REPORT: DATE OF CONSULTATION: 03/13/19 PRIMARY CARE PROVIDER: Dr. Kraus. REQUESTING PROVIDER: Dr. Ezequiel Wells/Dr. David CONSULTING PROVIDER: DC Vargas SUPERVISING PHYSICIAN: Dr. Channing Coyle. REASON FOR CONSULTATION: Thrombocytopenia. HISTORY OF PRESENT ILLNESS: This is a very pleasant 63-year-old female with history of atrial fibrillation as well as Marfan's syndrome with associated aortic aneurysm, who presented to the emergency department last night with complaints of fatigue and lower extremity edema. The patient was subsequently found to have severe thrombocytopenia and was subsequently admitted. The patient reports that over the last month, she has developed lower extremity edema and fatigue that has been progressively worse. She has been seen by both her log chipper, Dr. Henderson as well as her primary care doctor and has had rather extensive workup including a recent echocardiogram, bilateral lower extremity Dopplers and laboratory evaluation, which was unremarkable with the exception of an elevated TSH. The patient has known Amina's disease, currently treated with levothyroxine at 100 mcg daily which she reports as a recent increase in dose. The patient reports that starting approximately 3 or 4 days ago, she has been having intermittent nosebleeds out of both nostrils, somewhat alternating that has been difficult to control. She has also noted some minor bruising. No other signs of bleeding including dark or tarry looking stools, no hematuria, no hemoptysis. She is chronically anticoagulated for her atrial fibrillation with Xarelto and is compliant with this medication, last taken the morning of . She denies any recent fevers. She has had temperatures up to 100 degrees Fahrenheit, but generally in the 99 degrees range. She has reported a nearly 25-pound weight gain over the last month, which she believes there is mostly fluid in her legs. She reports nausea and very poor appetite and she is generally eating very little throughout the day. She does have some abdominal discomfort, but mostly feels like she is full quite easily. She denies any recent vomiting and reports normal bowel movements. She denies any recent international travel. Her only new medication has been Lasix for which she took for symptomatic relief from the lower extremity edema for approximately 1 week which would have been within the last couple of weeks. She otherwise denies any recent new medical diagnosis. No recent infections. In addition to her lower extremity edema, she reports some arthralgias, mostly in the knees and hips which she is unable differentiate whether this is related to the edema or truly joint pain, but generally everything just feels "heavy." She feels that the amount of edema that she is experiencing is not increasing in volume in her lower extremities, but extending more proximal throughout her body and she does notice some edema extending up to the umbilicus. PAST MEDICAL HISTORY: 1. Marfan's. 2. Aortic and thoracic aortic aneurysm - stable. 3. Atrial fibrillation, followed by Dr. Henderson. 4. TIA approximately 15 years ago. 5. Amina thyroiditis - currently hypothyroid. 6. Osteopenia, treated with alendronate. 7. Scoliosis. SURGICAL HISTORY: 1. Eye surgery to correct strabismus as a child. 2. Cataracts x2. 3. Polypectomy somewhere in the systems as a young child. CURRENT MEDICATIONS: 1. Irbesartan (prescribed for her Marfan's syndrome) 37.5 mg p.o. twice daily. 2. Alendronate 70 mg p.o. weekly. 3. Levothyroxine 100 mcg p.o. daily. 4. Magnesium oxide 400 mg p.o. twice daily. 5. Potassium chloride 20 mEq p.o. twice daily. 6. Xarelto 20 mg p.o. daily. 7. Sotalol 60 mg p.o. twice daily. 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 They have no children. She reports occasional alcohol consumption, approximately once monthly and denies any history of tobacco use or illicit drug use. FAMILY HISTORY: Mother had history of CVA and father with Marfan's and coronary artery disease, no significant malignancy history. REVIEW OF SYSTEMS: Full review of systems completed and as noted above in HPI, otherwise negative. PHYSICAL EXAM: Most recent vitals: Temperature 98.3 degrees Fahrenheit, pulse 63 beats per minute, respiratory rate 18, oxygen saturation 100% on room air, blood pressure 93/53 mmHg. General: This is a relatively well appearing 63-year-old female who is accompanied by her male partner and is in no acute distress. HEENT: Head is normocephalic, atraumatic. Mucous membranes are pink and moist. Cardiovascular : Heart has a regular rate and rhythm without murmurs, rubs or gallops. Respiratory: Lungs are clear to auscultation without wheezes, crackles or rhonchi. Abdomen: Soft and nontender to palpation. Extremities: 1 to 2+ edema noted throughout the legs. No upper extremity edema appreciated. DIAGNOSTIC STUDIES/LABORATORY DATA: CBC shows white blood cell count of 10,200 , hemoglobin of 15.3 g/dL and a platelet count of 4000. Differential is unremarkable. INR of 1.32, PTT of 32.3. Comprehensive metabolic panel shows a sodium of 130 mmol/L, potassium of 5.0, BUN 16, creatinine 0.72. Random glucose of 119. Lactic acid 1.2. Total bilirubin and transaminases within normal limits. Troponin negative at 0.03. Albumin of 2.5, total protein of 4.9. Vitamin B12 of 107. Folate normal at 9.3. CRP normal at 3.3. CK-MB normal at 185. Urinalysis shows 1+ protein, trace leuk esterase. Imaging: CT of the abdomen and pelvis from 03/08/19 shows stable aneurysm, but is otherwise unremarkable. Venous Doppler from 02/23/19 is negative for DVTs. CT brain from 03/12/19 is negative for acute pathology. Chest x-ray shows no acute pathology. ASSESSMENT AND PLAN: This is a 63-year-old female with Marfan's syndrome and associated aortic aneurysm, which appeared to be stable as well as atrial fibrillation and Amina's thyroiditis, currently hypothyroid, who presented to the emergency department with progressive lower extremity edema, fatigue and recent complaints of nosebleeds, found to be severely thrombocytopenic with the platelet count of 4000. Hematology was subsequently consulted for concern of severe thrombocytopenia. Based on initial evaluation, ITP appears to be the most likely diagnosis. This is a pending evaluation of peripheral smear by Dr. Channing Coyle. Regarding potential inciting factors and unifying diagnosis to explain her associated fatigue and lower extremity edema, hypothyroidism can certainly explain her lower extremity edema, fatigue and it can be associated with ITP as well. Her TSH was last measured earlier this month at 5.64, down from 8.89 measured on February 17. Although, the degree of hypothyroidism does not correspond with the degree of her symptoms this may be associated. She did take a short course of Lasix as well which can be associated with ITP and may explain this presentation as well. 1. Thrombocytopenia. The patient received 1 unit of platelet earlier this morning and recommended repeating a CBC 1 hour post transfusion. If this indeed is ITP expect to little to know improvement in her platelet count following this platelet transfusion and would help to solidify the diagnosis of ITP. If she has [id number] response to platelet transfusion, recommend empirically treating for ITP with dexamethasone 40 mg IV daily x4 days. We will avoid IVIG due to her extensive edema, which may exacerbate that process. If she does have an appropriate response to platelet transfusion and/or abnormalities appreciated on peripheral smear, then she will require a bone marrow biopsy tomorrow for further evaluation as the etiology of her thrombocytopenia. She has no evidence of active bleeding and has a negative CT scan of the brain from yesterday. 2. Fatigue and lower extremity edema. As mentioned above, hypothyroidism may be a consideration that would explain the symptoms. Hospital physician has plans to repeat a TSH. Other plans include evaluation of portal vein for thrombosis, which is appropriate, but unlikely given her thrombocytopenia and chronic anticoagulation with Xarelto. Other things on the differential include nephrotic syndrome. She does appear to have low total protein and hypoalbuminemia, both of which are mild. Initial UA did show 1+ protein, but 24- hour urine is pending. Could also consider liver disease, although this appeared normal on recent CT. Could consider hepatitis screening as well. 3. Atrial fibrillation. Management per Hospital[facility], hold Xarelto until platelets are consistently greater than 50,000. 4. Hypothyroidism. Continue levothyroxine at current dose with TSH and free T4 pending. 5. Code status. The patient is full code. DISPOSITION: The patient requires continued inpatient management in monitoring. Hematology Group will continue to follow along closely. DC VARGAS [id number]/[facility] #: [id number] [place]
[2019-03-14] MEDS: Magnesium Oxide TAB* 400 MG PO SCH ×4 (01:18→23:28)
[2019-03-14 07:34] LABS: ABS Basophils 0 10^3/ul (0-0.2); ABS Eosinophils 0 10^3/ul (0-0.6); ABS Lymphocytes 0.9 10^3/ul (1.0-4.8); ABS Monocytes 0.2 10^3/ul (0-0.8); ABS Neutrophils 3.7 10^3/ul (1.5-7.7); ABS Nucleated RBC 0 10^3/ul; Eosinophil % 0.1 %; Hematocrit 35 % (33-41); Mean Corpuscular HGB Conc 34 g/dL (31-36); Mean Corpuscular Hemoglobin 30 pg (27-31); Mean Corpuscular Volume 88 fL (80-97); Nucleated Red Blood Cells % 0.1; Red Cell Distribution Width 15 % (10.5-15); White Blood Count 4.8 10^3/uL (3.5-10.8)
[2019-03-14 07:36] LABS: ALT 9 U/L (7-52); AST 13 U/L (13-39); Albumin 2.7 g/dL (3.2-5.2); Albumin/Globulin Ratio 1.2 (1-3); Alkaline Phosphatase 28 U/L (34-104); Anion Gap 6 mmol/L (2-11); BUN/Creatinine Ratio 28.8 (8-20); Blood Urea Nitrogen 17 mg/dL (6-24); CO2 Carbon Dioxide 23 mmol/L (22-32); Calcium 7.9 mg/dL (8.6-10.3); Chloride 107 mmol/L (101-111); EGFR Non-African American 103.3 (>60); Globulin 2.2 g/dL (2-4); Glucose 154 mg/dL (70-100); Indirect Bilirubin 0.7 mg/dL (0.3-1.0); Magnesium 2.1 mg/dL (1.9-2.7); Phosphorus 3.4 mg/dL (2.5-5.0); Sodium 136 mmol/L (135-145); Total Protein 4.9 g/dL (6.4-8.9)
[2019-03-14 07:42] LABS: % Iron Saturation 20 % (15-55); Iron 60 ug/dL (50-212); Total Iron Binding Capacity 307 mcg/dL (250-450); Transferrin 219 mg/dL (203-362)
[2019-03-14 08:02] LABS: Ferritin 38.1 ng/mL (11-307)
[2019-03-14] MEDS: Levothyroxine TAB* 100 MCG TAB PO SCH (08:29)
[2019-03-14] MEDS: SOTALOL 120 MG PO SCH ×2 (09:08→20:30)
[2019-03-14] MEDS: Cyanocobalamin TAB* 500 MCG PO SCH (09:09)
[2019-03-14] MEDS: Folic Acid TAB* 1 MG PO SCH (09:09)
[2019-03-14] MEDS: Dexamethasone TAB* 4 MG PO SCH (09:09)
[2019-03-14] MEDS: Thiamine TAB* 100 MG TAB PO SCH (09:09)
[2019-03-14] MEDS: Multivitamins/Minerals TAB PO SCH (09:09)
--- NOTE | 2019-03-14 13:16 | PN ---
Subjective Date of Service: 03/14/19 Interval History: Patient has no new complaints. Bilat LE edema continues, no better. Saw Dr. Coyle this morning. No further epistaxis Family History: Unchanged from Admission Social History: Unchanged from Admission Past Medical History: Unchanged from Admission Objective Active Medications: Acetaminophen (Tylenol Tab*) 650 mg PO Q4H PRN PRN Reason: FEVER/PAIN Cyanocobalamin (Vitamin B12 Tab*) 5,000 mcg PO DAILY [facility] Last Admin: 03/14/19 09:09 Dose: 5,000 mcg Dexamethasone (Decadron Tab*) 40 mg PO DAILY [facility] Last Admin: 03/14/19 09:09 Dose: 40 mg Folic Acid (Folvite Tab*) 1 mg PO DAILY [facility] Last Admin: 03/14/19 09:09 Dose: 1 mg Levothyroxine Sodium (Synthroid Tab*) 100 mcg PO DAILY [facility] Last Admin: 03/14/19 08:29 Dose: 100 mcg Magnesium Oxide (Magox 400 Tab*) 400 mg PO BID@1100,2300 [facility] Last Admin: 03/14/19 11:02 Dose: 400 mg Multivitamins/Minerals (Theragran/Minerals Tab*) 1 tab PO DAILY [facility] Last Admin: 03/14/19 09:09 Dose: 1 tab Ondansetron HCl (Zofran Inj*) 4 mg IV Q4H PRN PRN Reason: NAUSEA/VOMITING Sotalol HCl (Sotalol (Nf)) 60 mg PO BID [facility] Last Admin: 03/14/19 09:08 Dose: 60 mg Thiamine HCl (Vitamin B-1 Tab*) 100 mg PO DAILY [facility] Last Admin: 03/14/19 09:09 Dose: 100 mg Vital Signs - 8 hr 03/14/19 03/14/19 03/14/19 09:05 09:23 11:21 Temperature 36.4 C 35.7 C Pulse Rate 65 62 Respiratory 16 16 Rate Blood Pressure 93/54 100/50 98/54 (mmHg) O2 Sat by Pulse 93 94 Oximetry 03/14/19 11:48 Temperature Pulse Rate Respiratory Rate Blood Pressure 115/54 (mmHg) O2 Sat by Pulse Oximetry Oxygen Devices in Use Now: None Appearance: alert, no distress Ears/Nose/Mouth/Throat: Clear Oropharnyx Neck: No Thyroid Enlargement, Masses Respiratory: Symmetrical Chest Expansion and Respiratory Effort, Clear to Auscultation Cardiovascular: NL Sounds; No Murmurs; No JVD Abdominal: NL Sounds; No Tenderness; No Distention, No Hepatosplenomegaly Lymphatic: No Cervical Adenopathy Skin: - - ecchymosis antecubital areas, no peripheral petichiae Neurological: Alert and Oriented x 3 Lines/Tubes/Other Access: Clean, Dry and Intact Peripheral IV Result Diagrams: 03/14/19 06:46 03/14/19 06:46 Additional Lab and Data: Laboratory Tests 03/12/19 03/14/19 23:28 06:46 Calcium 7.9 L Alkaline Phosphatase 28 L Lactate Dehydrogenase 185 Vitamin B12 107 L Diagnostic Imaging: U/S: no portal vein thrombosis Assess/Plan/Problems-Billing Assessment: 63 y/o female admitted for acute thrombocytopenia 4000 no active bleed. Working diagnosis ITP pending full and final work up - Patient Problems (1) Thrombocytopenia Current Visit: Yes Status: Acute Priority: High Code(s): D69.6 - THROMBOCYTOPENIA, UNSPECIFIED SNOMED Code(s): 470147475 Comment: - platelets have not improved after PLT transfusion - ITP suspected, on IV corticosteroids - May add IVIg tomorrow if not improving - Likely needs BM bx (2) B12 deficiency Current Visit: Yes Status: Acute Priority: Medium Code(s): E53.8 - DEFICIENCY OF OTHER SPECIFIED B GROUP VITAMINS SNOMED Code(s): 450419019 Comment: - avoiding IM with platelet of 4000 - Will give her PO 5000 daily for a week unless her platelet improves and we can use IM B12. (3) Edema Current Visit: Yes Status: Acute Priority: Medium Code(s): R60.9 - EDEMA, UNSPECIFIED SNOMED Code(s): 829526453 Comment: - no veno-occlusive disease seen - Echo shows mild-mod MR, some diastolic dysfunction - may have nephotic syndrome, 24 hour urine collection for protein pending - If no unifying dx seen, will need trial of lasix (4) Atrial fibrillation Current Visit: Yes Status: Chronic Priority: Medium Onset Date: 09/29/14 Code(s): I48.91 - UNSPECIFIED ATRIAL FIBRILLATION SNOMED Code(s): 02240473 Comment: - Currenlty in sinus, S/P cardioversion by Dr. Smith in 2018. - Continue sotalol 60 mg bid (may use her own) - Xaretlo on hold given her thrombocytopenia (5) DVT prophylaxis Current Visit: Yes Status: Acute Priority: Low Code(s): INN1784 - SNOMED Code(s): 590892217 Comment: - not indicated
[2019-03-14 19:40] LABS: Urine TP Concentration 7 mg/dL
[2019-03-15 06:59] LABS: Hematocrit 32 % (33-41); Hemoglobin 10.7 g/dL (12.0-16.0); Mean Corpuscular HGB Conc 34 g/dL (31-36); Mean Corpuscular Hemoglobin 30 pg (27-31); Mean Corpuscular Volume 89 fL (80-97); Red Blood Count 3.58 10^6 /uL (3.70-4.87); Red Cell Distribution Width 15 % (10.5-15); White Blood Count 4.7 10^3/uL (3.5-10.8)
[2019-03-15 07:39] LABS: Platelet Count 4 10^3/uL (150-450)
[2019-03-15 07:40] LABS: ABS Basophils 0 10^3/ul (0-0.2); ABS Eosinophils 0 10^3/ul (0-0.6); ABS Lymphocytes 0.8 10^3/ul (1.0-4.8); ABS Monocytes 0.6 10^3/ul (0-0.8); ABS Neutrophils 3.3 10^3/ul (1.5-7.7); ABS Nucleated RBC 0 10^3/ul; Eosinophil % 0.1 %; Lymphocyte % 17.2 %; Nucleated Red Blood Cells % 0.1
[2019-03-15] MEDS: Levothyroxine TAB* 100 MCG TAB PO SCH (08:18)
[2019-03-15] MEDS: Multivitamins/Minerals TAB PO SCH (08:18)
[2019-03-15] MEDS: Dexamethasone TAB* 4 MG PO SCH (08:19)
[2019-03-15] MEDS: Folic Acid TAB* 1 MG PO SCH (08:19)
[2019-03-15] MEDS: Thiamine TAB* 100 MG TAB PO SCH (08:19)
[2019-03-15 09:06] LABS: TSH (Thyroid Stimulating Horm) 2.34 mcIU/mL (0.34-5.60)
[2019-03-15 09:07] LABS: Free T4 0.76 ng/dL (0.61-1.12)
[2019-03-15] MEDS: Cyanocobalamin TAB* 500 MCG PO SCH (09:42)
[2019-03-15] MEDS: SOTALOL 120 MG PO SCH ×3 (09:50→19:09)
--- NOTE | 2019-03-15 10:11 | PN ---
Progress Note - Progress Note Date of Service: 03/15/19 SOAP: Subjective: [One episode of epistaxis last night that was controlled with 20 min of pressure. Denies hematuria, BRBPR or melena. No new bruising or petechiae apart from vascular access sites.] Objective: [ Laboratory Results - last 24 hr 03/12/19 03/13/19 03/14/19 22:02 14:42 17:40 WBC 7.4 RBC 4.33 Hgb 12.6 Hct 38 MCV 88 MCH 29 MCHC 33 RDW 15 Plt Count 4 L* MPV 8.8 Neut % (Auto) 60.2 Lymph % (Auto) 20.7 [place] % (Auto) 15.1 Eos % (Auto) 2.5 Baso % (Auto) 1.5 Absolute Neuts (auto) 4.5 Absolute Lymphs (auto) 1.5 Absolute Monos (auto) 1.1 H Absolute Eos (auto) 0.2 Absolute Basos (auto) 0.1 Absolute Nucleated RBC 0 Nucleated RBC % 0.1 Hem Pathologist Commnt TSH Free T4 Urine Collection Time 24 Urine Total Volume 1900 Ur Total Protein Conc 7 Ur Total Protein 24 Hr 133 03/15/19 03/15/19 06:29 06:29 WBC 4.7 RBC 3.58 L Hgb 10.7 L Hct 32 L MCV 89 MCH 30 MCHC 34 RDW 15 Plt Count 4 L* MPV 11.0 H Neut % (Auto) 69.4 Lymph % (Auto) 17.2 [place] % (Auto) 13.2 Eos % (Auto) 0.1 Baso % (Auto) 0.1 Absolute Neuts (auto) 3.3 Absolute Lymphs (auto) 0.8 L Absolute Monos (auto) 0.6 Absolute Eos (auto) 0 Absolute Basos (auto) 0 Absolute Nucleated RBC 0 Nucleated RBC % 0.1 Hem Pathologist Commnt TSH 2.34 Free T4 0.76 Urine Collection Time Urine Total Volume Ur Total Protein Conc Ur Total Protein 24 Hr Acetaminophen (Tylenol Tab*) 650 mg PO Q4H PRN PRN Reason: FEVER/PAIN Cyanocobalamin (Vitamin B12 Tab*) 5,000 mcg PO DAILY [facility] Last Admin: 03/15/19 09:42 Dose: 5,000 mcg Dexamethasone (Decadron Tab*) 40 mg PO DAILY [facility] Last Admin: 03/15/19 08:19 Dose: 40 mg Folic Acid (Folvite Tab*) 1 mg PO DAILY [facility] Last Admin: 03/15/19 08:19 Dose: 1 mg Levothyroxine Sodium (Synthroid Tab*) 100 mcg PO 0600 [facility] Magnesium Oxide (Magox 400 Tab*) 400 mg PO BID@1100,2300 [facility] Last Admin: 03/14/19 23:28 Dose: 400 mg Multivitamins/Minerals (Theragran/Minerals Tab*) 1 tab PO DAILY [facility] Last Admin: 03/15/19 08:18 Dose: 1 tab Ondansetron HCl (Zofran Inj*) 4 mg IV Q4H PRN PRN Reason: NAUSEA/VOMITING Sotalol HCl (Sotalol (Nf)) 60 mg PO BID [facility] Last Admin: 03/15/19 09:50 Dose: Not Given Thiamine HCl (Vitamin B-1 Tab*) 100 mg PO DAILY [facility] Last Admin: 03/15/19 08:19 Dose: 100 mg Vital Signs: Temp Pulse Resp BP Pulse Ox 97.9 F 56 18 118/76 92 03/15/19 07:29 03/15/19 09:50 03/15/19 08:00 03/15/19 09:50 03/15/19 07:29 Exam: Gen: Well appearing 63 yo female in NAD HEENT: MMM CV: RRR, no m/r/g Resp: CTA, no w/c/r Abd: soft, nonTTP Ext: 2+ LE edema Skin: bruising over arms, no petechiae] Assessment: [63 yo female with h/o afib and Marfan's syndrome who presented with c/o fatigue and LE edema and marked thrombocytopenia. 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 She is day #3 of high dose steroids and has no improvement in platelet count. ] Plan: [1. Thrombocytopenia, suspected ITP - day #3 of 4 dexamethasone - no response to steroids at this time - one episode of epistaxis last night, easily controlled, no additional bleeding - noted decline in Hgb and lack of leukocytosis after receiving high dose steroids - she requires bone marrow biopsy for further evaluation, this will be completed today - hepatitis, HIV, JESSEE, MMA pending 2. Afib - cont sotalol - hold anticoagulation 3. Hypothyroidism - euthyroid state, TSH 2.3 - cont levothyroxine] 4. vit B12 deficiency - cont oral B2 supp - MMA pending 5. Marfans - stable aortic aneurysms
--- NOTE | 2019-03-15 10:48 | PROCNOTE ---
Hematology/Oncology Procedure Hematology/Oncology Procedure Note: Bone Marrow aspiration/biopsy: Written, informed consent obtained. Time out completed. Patient placed in a R lateral decubitus position. L PSIS identified. Prepped and draped in a sterile manner. Local anesthesia with 10ml 2% lidocaine. Aspiration and core biopsy successfully completed. Pressure applied to access site with application of a bulky dressing. Patient tolerated the procedure very well.
[2019-03-15 12:13] LABS: Hepatitis C Antibody Nonreactive (Nonreactive)
[2019-03-15] MEDS: Magnesium Oxide TAB* 400 MG PO SCH ×2 (12:57→21:08)
[2019-03-15] MEDS: Acetaminophen TAB* 325 MG PO PRN ×3 (13:31→21:59)
[2019-03-15 13:39] LABS: Creatinine, Serum 0.59 mg/dL (0.51-0.95)
[2019-03-15 14:18] LABS: Urine Creatinine Concentration 47.62 mg/dL
--- NOTE | 2019-03-15 20:31 | PN ---
Subjective Date of Service: 03/15/19 Interval History: Patient had BM biopsy today. She is doing well. Feels SOB when lying flat. Abdomen feels distended and uncomfortable after eating. LE edema no better. Family History: Unchanged from Admission Social History: Unchanged from Admission Past Medical History: Unchanged from Admission Objective Active Medications: Acetaminophen (Tylenol Tab*) 650 mg PO Q4H PRN PRN Reason: FEVER/PAIN Last Admin: 03/15/19 14:50 Dose: 325 mg Cyanocobalamin (Vitamin B12 Tab*) 5,000 mcg PO DAILY [facility] Last Admin: 03/15/19 09:42 Dose: 5,000 mcg Dexamethasone (Decadron Tab*) 40 mg PO DAILY [facility] Last Admin: 03/15/19 08:19 Dose: 40 mg Folic Acid (Folvite Tab*) 1 mg PO DAILY [facility] Last Admin: 03/15/19 08:19 Dose: 1 mg Levothyroxine Sodium (Synthroid Tab*) 100 mcg PO 0600 [facility] Magnesium Oxide (Magox 400 Tab*) 400 mg PO BID@1100,2300 [facility] Last Admin: 03/15/19 12:57 Dose: 400 mg Multivitamins/Minerals (Theragran/Minerals Tab*) 1 tab PO DAILY [facility] Last Admin: 03/15/19 08:18 Dose: 1 tab Ondansetron HCl (Zofran Inj*) 4 mg IV Q4H PRN PRN Reason: NAUSEA/VOMITING Sotalol HCl (Sotalol (Nf)) 60 mg PO BID [facility] Last Admin: 03/15/19 19:09 Dose: 60 mg Thiamine HCl (Vitamin B-1 Tab*) 100 mg PO DAILY [facility] Last Admin: 03/15/19 08:19 Dose: 100 mg Vital Signs - 8 hr 03/15/19 03/15/19 03/15/19 14:27 15:23 19:12 Temperature 36.7 C Pulse Rate 56 51 Respiratory 17 Rate Blood Pressure 111/62 (mmHg) O2 Sat by Pulse 92 Oximetry Oxygen Devices in Use Now: None Appearance: alert, no distress Neck: NL Appearance and Movements; NL JVP Respiratory: Symmetrical Chest Expansion and Respiratory Effort Cardiovascular: NL Sounds; No Murmurs; No JVD Abdominal: No Hepatosplenomegaly, - - distended, soft, no masses Lymphatic: No Cervical Adenopathy Extremities: - - 2-3+ edema bilat LE Neurological: Alert and Oriented x 3 Lines/Tubes/Other Access: Clean, Dry and Intact Peripheral IV Nutrition: Taking PO's Result Diagrams: 03/15/19 06:29 03/14/19 17:40 Additional Lab and Data: Laboratory Tests 03/15/19 03/15/19 06:29 06:29 TSH 2.34 Free T4 0.76 Hepatitis C Antibody Nonreactive Hepatitis C Ab Index 0.1 Microbiology and Other Data: Microbiology 03/13/19 04:30 Urine Culture - Final Urine Assess/Plan/Problems-Billing Assessment: 63 y/o female admitted for acute thrombocytopenia 4000 no active bleed. Working diagnosis ITP but concern for developing pancytopenia - Patient Problems (1) Thrombocytopenia Current Visit: Yes Status: Acute Priority: High Code(s): D69.6 - THROMBOCYTOPENIA, UNSPECIFIED SNOMED Code(s): 444279038 Comment: - platelets have not improved after PLT transfusion - ITP suspected, on IV corticosteroids - May add IVIg tomorrow if not improving - Awaiting Marrow Bx results (2) B12 deficiency Current Visit: Yes Status: Acute Priority: Medium Code(s): E53.8 - DEFICIENCY OF OTHER SPECIFIED B GROUP VITAMINS SNOMED Code(s): 926473287 Comment: - avoiding IM with platelet of 4000 - Will give her PO 5000 daily for a week unless her platelet improves and we can use IM B12. (3) Edema Current Visit: Yes Status: Acute Priority: Medium Code(s): R60.9 - EDEMA, UNSPECIFIED SNOMED Code(s): 732604533 Comment: - 24h urine shows no proteinuria. - Eating plenty of protein, so perhaps liver is not making albumin or other proteins normally - Will check liver U/S. Liver dysfunction could cause low platelets, low albumin (4) Atrial fibrillation Current Visit: Yes Status: Chronic Priority: Medium Onset Date: 09/29/14 Code(s): I48.91 - UNSPECIFIED ATRIAL FIBRILLATION SNOMED Code(s): 85827112 Comment: - Currenlty in sinus, S/P cardioversion by Dr. Smith in 2018. - Continue sotalol 60 mg bid, - monitor K, Mg and replete PRN - Xaretlo on hold given her thrombocytopenia (5) DVT prophylaxis Current Visit: Yes Status: Acute Priority: Low Code(s): YSB2513 - SNOMED Code(s): 740593034 Comment: - not indicated
--- NOTE | 2019-03-16 03:43 | PN ---
Hospitalist Progress Note Date of Service: 03/16/19 CROSS COVER NOTE Called overnight pt bradycardic in the 40s, EKG ordered, shows sinus leonardo with some ectopy, no e/o block, fib at baseline, mentating fine -No acute actions, could consider lowering dose of dose of Sotalol or lowering parameters
[2019-03-16] MEDS: Levothyroxine TAB* 100 MCG TAB PO SCH (05:58)
[2019-03-16] MEDS: SOTALOL 120 MG PO SCH ×2 (08:07→19:23)
[2019-03-16 08:44] LABS: ABS Basophils 0 10^3/ul (0-0.2); ABS Eosinophils 0 10^3/ul (0-0.6); ABS Lymphocytes 0.7 10^3/ul (1.0-4.8); ABS Monocytes 0.7 10^3/ul (0-0.8); ABS Nucleated RBC 0 10^3/ul; Eosinophil % 0 %; Hematocrit 33 % (33-41); Lymphocyte % 16.3 %; Mean Corpuscular HGB Conc 34 g/dL (31-36); Mean Corpuscular Hemoglobin 30 pg (27-31); Mean Corpuscular Volume 89 fL (80-97); Mean Platelet Volume 11.3 fL (7.4-10.4); Nucleated Red Blood Cells % 0.4; Platelet Count 13 10^3/uL (150-450); Red Blood Count 3.69 10^6 /uL (3.70-4.87); Red Cell Distribution Width 16 % (10.5-15); White Blood Count 4.5 10^3/uL (3.5-10.8)
[2019-03-16 08:52] LABS: Activated Partial Thrombo Time 23.4 seconds (26.0-36.3); INR 0.94 (0.77-1.02)
[2019-03-16 09:02] LABS: Calcium 8.3 mg/dL (8.6-10.3); EGFR African American 122.6 (>60); EGFR Non-African American 101.3 (>60); Magnesium 2.6 mg/dL (1.9-2.7); Potassium 4.2 mmol/L (3.5-5.0)
[2019-03-16] MEDS: Dexamethasone TAB* 4 MG PO SCH (09:53)
[2019-03-16] MEDS: Cyanocobalamin TAB* 500 MCG PO SCH (09:53)
[2019-03-16] MEDS: Thiamine TAB* 100 MG TAB PO SCH (09:54)
[2019-03-16] MEDS: Folic Acid TAB* 1 MG PO SCH (09:54)
[2019-03-16] MEDS: Multivitamins/Minerals TAB PO SCH (09:54)
[2019-03-16] MEDS: Magnesium Oxide TAB* 400 MG PO SCH ×2 (09:54→21:24)
[2019-03-16] MEDS: Acetaminophen TAB* 325 MG PO PRN ×2 (11:30→20:01)
--- NOTE | 2019-03-16 18:38 | PN ---
Subjective Date of Service: 03/16/19 Interval History: Patient has RT shoulder pain. This has responded to lidoderm patch in past. Also has worsening early satiety that started months ago, prior to developing edema. Has post-prandial discomfort, and known hiatal hernia, but no GERD. Family History: Unchanged from Admission Social History: Unchanged from Admission Past Medical History: Unchanged from Admission Objective Active Medications: Acetaminophen (Tylenol Tab*) 650 mg PO Q4H PRN PRN Reason: FEVER/PAIN Last Admin: 03/16/19 11:30 Dose: 650 mg Cyanocobalamin (Vitamin B12 Tab*) 5,000 mcg PO DAILY [facility] Last Admin: 03/16/19 09:53 Dose: 5,000 mcg Dexamethasone (Decadron Tab*) 40 mg PO DAILY [facility] Last Admin: 03/16/19 09:53 Dose: 40 mg Folic Acid (Folvite Tab*) 1 mg PO DAILY [facility] Last Admin: 03/16/19 09:54 Dose: 1 mg Levothyroxine Sodium (Synthroid Tab*) 100 mcg PO 0600 [facility] Last Admin: 03/16/19 05:58 Dose: 100 mcg Lidocaine (Lidoderm 5% Patch*) 1 patch TRANSDERM DAILY [facility] Magnesium Oxide (Magox 400 Tab*) 400 mg PO BID@0930,0 [facility] Last Admin: 03/16/19 09:54 Dose: 400 mg Multivitamins/Minerals (Theragran/Minerals Tab*) 1 tab PO DAILY [facility] Last Admin: 03/16/19 09:54 Dose: 1 tab Ondansetron HCl (Zofran Inj*) 4 mg IV Q4H PRN PRN Reason: NAUSEA/VOMITING Pharmacy Profile Note (Lidocaine Patch Remove*) 1 note N/A 2100 [facility] Sotalol HCl (Sotalol (Nf)) 60 mg PO 0730,1930 [facility] Thiamine HCl (Vitamin B-1 Tab*) 100 mg PO DAILY [facility] Last Admin: 03/16/19 09:54 Dose: 100 mg Vital Signs - 8 hr 03/16/19 03/16/19 11:25 15:49 Temperature 36.5 C 36.7 C Pulse Rate 50 44 Respiratory 16 20 Rate Blood Pressure 115/63 121/72 (mmHg) O2 Sat by Pulse 97 95 Oximetry Oxygen Devices in Use Now: None Appearance: alert, no distress Ears/Nose/Mouth/Throat: Clear Oropharnyx Neck: NL Appearance and Movements; NL JVP Respiratory: Symmetrical Chest Expansion and Respiratory Effort, Clear to Auscultation Cardiovascular: NL Sounds; No Murmurs; No JVD, - - 2+ edema bilat LE Abdominal: No Hepatosplenomegaly, - - distended, soft Lymphatic: No Cervical Adenopathy Lines/Tubes/Other Access: Clean, Dry and Intact Peripheral IV Nutrition: Taking PO's Result Diagrams: 03/16/19 08:18 03/16/19 08:18 Additional Lab and Data: Laboratory Tests 03/12/19 03/16/19 23:28 08:18 INR (Anticoag Therapy) 0.94 APTT 23.4 L HIV 1&2 Antibody Nonreactive Diagnostic Imaging: U/S: liver parenchyma reported as normal verbally. CT this month prior to admit : fatty liver Assess/Plan/Problems-Billing Assessment: 63 y/o female admitted for acute thrombocytopenia 4000 and LE edema. Working diagnosis ITP but concern for developing pancytopenia - Patient Problems (1) Thrombocytopenia Current Visit: Yes Status: Acute Priority: High Code(s): D69.6 - THROMBOCYTOPENIA, UNSPECIFIED SNOMED Code(s): 498699559 Comment: - platelets have improved after 3 days dexamethasone, should end today - ITP suspected, many megacaryocytes on BMBx per Dr. Coyle - Awaiting official Marrow Bx results (2) B12 deficiency Current Visit: Yes Status: Acute Priority: Medium Code(s): E53.8 - DEFICIENCY OF OTHER SPECIFIED B GROUP VITAMINS SNOMED Code(s): 673956641 Comment: - avoiding IM with platelet of 4000 - On B12 PO 5000 daily for a week unless her platelet improves and we can use IM B12. (3) Edema Current Visit: Yes Status: Acute Priority: Medium Code(s): R60.9 - EDEMA, UNSPECIFIED SNOMED Code(s): 097038527 Comment: - 24h urine shows no proteinuria. - Eating plenty of protein, so perhaps liver is not making albumin or other proteins normally - Only known liver disease is fatty liver, Hep C neg. Liver dysfunction could cause low platelets, low albumin. JESSEE, GGTP, 5'nucleo pending (4) Atrial fibrillation Current Visit: Yes Status: Chronic Priority: Medium Onset Date: 09/29/14 Code(s): I48.91 - UNSPECIFIED ATRIAL FIBRILLATION SNOMED Code(s): 91927374 Comment: - Currently in sinus leonardo. - Continue sotalol 60 mg bid, discussed fact that sotalol can cause LE edema - monitor K, Mg and replete PRN - Xaretlo on hold given her thrombocytopenia (5) DVT prophylaxis Current Visit: Yes Status: Acute Priority: Low Code(s): EUN0637 - SNOMED Code(s): 609835296 Comment: - not indicated (6) Early satiety Current Visit: Yes Status: Acute Priority: Medium Code(s): R68.81 - EARLY SATIETY SNOMED Code(s): 253230257 Comment: -Patient may have low protein intake, low albumin as effect. -Differential includes gastroparesis, may also have atrophic gastritis causing low B12. -Will discuss with Dr. Lemos, GI food production machine operator. Status and Disposition: inpatient Counseling and/or Coordination of Care Minutes: discussed with Drs. Coyle and Santiago Points of Discussion: Dr Henderson had advised stop ARB as outpatient, as this was newest medication. This has been done. She stated that patient has had recurrence of a-fib when sotalol lower than 120 mg/day. She advised consider another anti-arrhythmic Also stated Lasix already tried, had no effect or made edema worse. Advised literature search re side effects of other medications, as explanation of LE edema, low albumin Dr. Coyle reviewed bone marrow himself, there are signs of B12 deficiency and megakaryocytes consistent with ITP.
[2019-03-16] MEDS: Lidocaine PATCH 5%* 1 PATCH TRANSDERM SCH (19:16)
[2019-03-16] MEDS ORDERED: SOTALOL 120 MG PO SCH (19:30)
[2019-03-17] MEDS: Acetaminophen TAB* 325 MG PO PRN ×5 (00:01→21:20)
[2019-03-17] MEDS: Levothyroxine TAB* 100 MCG TAB PO SCH (06:13)
[2019-03-17] MEDS: Lidocaine Patch REMOVE* 1 NOTE MISC SCH ×3 (06:16→20:51)
[2019-03-17] MEDS: SOTALOL 120 MG PO SCH ×2 (07:47→19:35)
[2019-03-17 07:58] LABS: Hematocrit 31 % (33-41); Hemoglobin 10.3 g/dL (12.0-16.0); Mean Corpuscular HGB Conc 33 g/dL (31-36); Mean Corpuscular Hemoglobin 29 pg (27-31); Mean Corpuscular Volume 89 fL (80-97); Red Cell Distribution Width 15 % (10.5-15); White Blood Count 3.7 10^3/uL (3.5-10.8)
[2019-03-17 08:16] LABS: ABS Basophils 0 10^3/ul (0-0.2); ABS Eosinophils 0 10^3/ul (0-0.6); ABS Lymphocytes 0.6 10^3/ul (1.0-4.8); ABS Monocytes 0.7 10^3/ul (0-0.8); ABS Neutrophils 2.4 10^3/ul (1.5-7.7); ABS Nucleated RBC 0 10^3/ul; Eosinophil % 0 %; Lymphocyte % 16.8 %; Mean Platelet Volume 14.1 fL (7.4-10.4); Nucleated Red Blood Cells % 0.7; Platelet Count 30 10^3/uL (150-450)
[2019-03-17 09:16] LABS: Methylmalonic Acid 0.24 nmol/mL (<=0.40)
[2019-03-17] MEDS: Lidocaine PATCH 5%* 1 PATCH TRANSDERM SCH (09:25)
[2019-03-17] MEDS: Cyanocobalamin TAB* 500 MCG PO SCH (09:26)
[2019-03-17] MEDS: Thiamine TAB* 100 MG TAB PO SCH (09:26)
[2019-03-17] MEDS: Multivitamins/Minerals TAB PO SCH (09:27)
[2019-03-17] MEDS: Folic Acid TAB* 1 MG PO SCH (09:27)
[2019-03-17] MEDS: Magnesium Oxide TAB* 400 MG PO SCH ×2 (09:27→20:44)
--- NOTE | 2019-03-17 13:53 | PN ---
Subjective Date of Service: 03/17/19 Interval History: Patient continues to have moderate RT shoulder pain. She always gets this when she develops AF. She can feel palpitations. LE edema may be a bit better. No further nosebleeds. Family History: Unchanged from Admission Social History: Unchanged from Admission Past Medical History: Unchanged from Admission Objective Active Medications: Acetaminophen (Tylenol Tab*) 650 mg PO Q4H PRN PRN Reason: FEVER/PAIN Last Admin: 03/17/19 13:33 Dose: 325 mg Cyanocobalamin (Vitamin B12 Tab*) 5,000 mcg PO DAILY [facility] Last Admin: 03/17/19 09:26 Dose: 5,000 mcg Folic Acid (Folvite Tab*) 1 mg PO DAILY [facility] Last Admin: 03/17/19 09:27 Dose: 1 mg Levothyroxine Sodium (Synthroid Tab*) 100 mcg PO 0600 [facility] Last Admin: 03/17/19 06:13 Dose: 100 mcg Lidocaine (Lidoderm 5% Patch*) 1 patch TRANSDERM DAILY [facility] Last Admin: 03/17/19 09:25 Dose: 1 patch Magnesium Oxide (Magox 400 Tab*) 400 mg PO BID@30,2129 [facility] Last Admin: 03/17/19 09:27 Dose: 400 mg Multivitamins/Minerals (Theragran/Minerals Tab*) 1 tab PO DAILY [facility] Last Admin: 03/17/19 09:27 Dose: 1 tab Ondansetron HCl (Zofran Inj*) 4 mg IV Q4H PRN PRN Reason: NAUSEA/VOMITING Sotalol HCl (Sotalol (Nf)) 60 mg PO 729,1930 [facility] Last Admin: 03/17/19 07:47 Dose: 60 mg Thiamine HCl (Vitamin B-1 Tab*) 100 mg PO DAILY [facility] Last Admin: 03/17/19 09:26 Dose: 100 mg Vital Signs - 8 hr 03/17/19 07:38 Temperature 36.5 C Pulse Rate 49 Respiratory 18 Rate Blood Pressure 141/77 (mmHg) O2 Sat by Pulse 95 Oximetry Oxygen Devices in Use Now: Nasal Cannula Appearance: alert, no distress Eyes: No Scleral Icterus Ears/Nose/Mouth/Throat: NL Teeth, Lips, Gums Neck: NL Appearance and Movements; NL JVP Respiratory: Symmetrical Chest Expansion and Respiratory Effort, Clear to Auscultation Cardiovascular: NL Sounds; No Murmurs; No JVD, - - irregularly irregular, 3+ edema bilat LE Lymphatic: No Cervical Adenopathy Neurological: Alert and Oriented x 3 Lines/Tubes/Other Access: Clean, Dry and Intact Peripheral IV Nutrition: Taking PO's Result Diagrams: 03/17/19 06:17 03/16/19 08:18 Additional Lab and Data: Laboratory Tests 03/15/19 03/17/19 06:29 06:17 GGT 57 Anti-Nuclear Antibody 0.7 BM-Bx: hypercellular marrow c/w ITP EKG Data: EKG: a-fib, V rate 91 Assess/Plan/Problems-Billing Assessment: 63 y/o female admitted for acute thrombocytopenia 4000 and LE edema. Working diagnosis ITP, also has recurrent AF, low albumin. - Patient Problems (1) Thrombocytopenia Current Visit: Yes Status: Acute Priority: High Code(s): D69.6 - THROMBOCYTOPENIA, UNSPECIFIED SNOMED Code(s): 498507651 Comment: - platelets have improved after 3 days dexamethasone completed - ITP confirmed (2) B12 deficiency Current Visit: Yes Status: Acute Priority: Medium Code(s): E53.8 - DEFICIENCY OF OTHER SPECIFIED B GROUP VITAMINS SNOMED Code(s): 435532984 Comment: - avoiding IM with platelets low, would start IM weekly if PLT>50 - On B12 PO 5000 daily for a week unless her platelet improves and we can use IM B12. (3) Edema Current Visit: Yes Status: Acute Priority: Medium Code(s): R60.9 - EDEMA, UNSPECIFIED SNOMED Code(s): 861500820 Comment: - 24h urine shows no proteinuria. - Dr Delgado to see today re low liver synthetic ability, vs protein-wasting enteropathy, vs malnutrition (4) Atrial fibrillation Current Visit: Yes Status: Chronic Priority: Medium Onset Date: 09/29/14 Code(s): I48.91 - UNSPECIFIED ATRIAL FIBRILLATION SNOMED Code(s): 40201240 Comment: - A-fib is recurrent - Continue sotalol 60 mg bid, discussed fact that sotalol can cause LE edema - Dr. Pedro to see today re alternative antiarrythmic, possible cardioversion (5) DVT prophylaxis Current Visit: Yes Status: Acute Priority: Low Code(s): WUT7978 - SNOMED Code(s): 899000117 Comment: - not indicated (6) Early satiety Current Visit: Yes Status: Acute Priority: Medium Code(s): R68.81 - EARLY SATIETY SNOMED Code(s): 910391766 Comment: -Patient may have low protein intake, low albumin as a result Status and Disposition: inpatient
--- NOTE | 2019-03-17 14:15 | CONSULT ---
Subjective Date of Service: 03/17/19 Interval History: Date of admission 03/12/2019 Date of consult 03/17/2019 PMD: Dr. Kraus Flagger: Dr. Henderson CC: severe edema reason for consult: AFib HPI: Carrie Soto is a 63 year old woman admitted with a month of progressive anasarca in the setting of an unexplained low albumin under ongoing evaluation. This has been associated with SUBRAMANIAN and fatigue. She was also found with easy bruising and severe thrombocytopenia. There has been no recent infectious illnesses. She went into atrial fibrillation early this AM and feels poorly despite rate being controlled She has had cardioversions in the past and is requesting one currently. Allergies: Sulfa 01/23/10 Nickel 09/09/16 allergy list reviewed on 03/03/2019 Pmhx Paroxysmal atrial fibrillation currently on sotalol anti-arrhythmic, had been on xarelto now on hold due to thrombocytopenia Marfan's syndrome with dilated aortic root/ascending aorta and MVP. Echo from reviewed and showed mild MR (previous have shown moderate) and a 4.4 cm aortic root. 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 Personal Habits: Smoking: Patient has never smoked.Alcohol: Rarely consumes alcohol.Drug Use: Negative For Denies Drug Use.Daily Caffeine: Consumes on average 1 cup of hot tea per day. fh: CVA, marfans, cad Medications Active Medications: Acetaminophen (Tylenol Tab*) 650 mg PO Q4H PRN PRN Reason: FEVER/PAIN Last Admin: 03/17/19 13:33 Dose: 325 mg Cyanocobalamin (Vitamin B12 Tab*) 5,000 mcg PO DAILY [facility] Last Admin: 03/17/19 09:26 Dose: 5,000 mcg Folic Acid (Folvite Tab*) 1 mg PO DAILY [facility] Last Admin: 03/17/19 09:27 Dose: 1 mg Levothyroxine Sodium (Synthroid Tab*) 100 mcg PO 0600 [facility] Last Admin: 03/17/19 06:13 Dose: 100 mcg Lidocaine (Lidoderm 5% Patch*) 1 patch TRANSDERM DAILY [facility] Last Admin: 03/17/19 09:25 Dose: 1 patch Magnesium Oxide (Magox 400 Tab*) 400 mg PO BID@0930,2130 [facility] Last Admin: 03/17/19 09:27 Dose: 400 mg Multivitamins/Minerals (Theragran/Minerals Tab*) 1 tab PO DAILY [facility] Last Admin: 03/17/19 09:27 Dose: 1 tab Ondansetron HCl (Zofran Inj*) 4 mg IV Q4H PRN PRN Reason: NAUSEA/VOMITING Pharmacy Profile Note (Lidocaine Patch Remove*) 1 note N/A 2099 [facility] Sotalol HCl (Sotalol (Nf)) 60 mg PO 729,1929 [facility] Last Admin: 03/17/19 07:47 Dose: 60 mg Thiamine HCl (Vitamin B-1 Tab*) 100 mg PO DAILY [facility] Last Admin: 03/17/19 09:26 Dose: 100 mg Home Medications: Potassium Chlor TAB* [Klor Con ER TAB 10 MEQ*] 10 meq PO BID 10/13/17 [History Confirmed 03/12/19] Magnesium Oxide [Magnesium] 400 mg PO BID 08/09/18 [History Confirmed 03/12/19] Rivaroxaban TAB(*) [Xarelto 20 mg] 20 mg PO DAILY 08/09/18 [History Confirmed ] Sotalol HCl [Sotalol] 60 mg PO BID 09/14/18 [History Confirmed 03/13/19] Irbesartan 37.5 mg PO BID 10/13/18 [History Confirmed 03/13/19] Alendronate Sodium 70 mg PO Q7D 03/13/19 [History Confirmed 03/13/19] Levothyroxine TAB* [Synthroid TAB*] 100 mcg PO DAILY 03/13/19 [History Confirmed 03/13/19] Review of Systems - Measurements Intake and Output: Intake and Output Last 24 Hours 03/15/19 03/16/19 03/17/19 03/18/19 06:59 06:59 06:59 06:59 Intake Total 960 1300 1320 Output Total 1000 Balance -40 1300 1320 Intake: IV Fluids 0 NS (0.9%) 0 Oral 960 1300 1320 Output: Urine 1000 Other: Estimated Void Medium Large Date of Last Bowel 03/16/19 Movement # Bowel Movements 0 1 # Voids 0 1 1 - Review of Systems Constitutional Symptoms: Positive: Weight Gain, Weakness, Fatigue Dermatology: Positive: Skin Lesions Negative: Rash HEENT: Negative: Change in Hearing, Vertigo Eyes: Negative: Change in Vision, Double Vision Thyroid: Positive: Weight Gain Negative: Change in Skin/Hair Pulmonary: Positive: Shortness of Breath, Exercise Intolerance Negative: Cough, Sputum, Hemoptysis, Wheezing, Respiratory Distress, COPD, Asthma, Home Oxygen Cardiology: Positive: Shortness of Breath, Palpitations, Swelling of Ankles, Edema Negative: Chest Pain, Peripheral Vascular Dis, Faintness, Syncope, Claudication, Paroxysmal Nocturnal Dyspnea, Orthopnea Gastroenterology: Positive: Anorexia Negative: Difficulty Swallowing, Heartburn, Blood in Stools Genital - Urinary: Negative: Dysuria, Hematuria Musculoskeletal: Negative: Joint Pain, Joint Stiffness Endocrinology: Negative: Polydipsia, Polyuria Hematologic/Lymphatic: Positive: Use of Anticoagulant Negative: Hx Leukemia, Hx Lymphoma, Use of Antiplatelet Drugs Neurology: Negative: Change in Coordination, Change in Memory, Change in Speech, Change in Sphincter Function, Hx of Stroke\TIA, Hx Seizures Psychiatry: Negative: Unusual Anxiety, Suicidal Ideation Allergic/Immunologic: Negative: Hx HIV, Immunocompromise Review of Systems Statement: All other review of systems negative, unless stated above. Objective Vital Signs: Temp Pulse Resp BP Pulse Ox 97.7 F 49 18 141/77 95 03/17/19 07:38 03/17/19 07:38 03/17/19 07:38 03/17/19 07:38 03/17/19 07:38 Oxygen Devices in Use Now: Nasal Cannula Appearance: pleasant, nad Ears/Nose/Mouth/Throat: Clear Oropharnyx Neck: Trachea Midline, No Thyroid Enlargement, Masses Respiratory: Symmetrical Chest Expansion and Respiratory Effort, - - no wheeze or rales Cardiovascular: - - irregularly irregular, no significant keith anoted Abdominal: - - soft, nontender Extremities: - - + anasarca, no open wounds Skin: No Rash or Ulcers Neurological: Alert and Oriented x 3 Laboratory Results: 03/17/19 06:17 INR (Anticoag Therapy) 0.94 (0.77-1.02) 03/16/19 08:18 APTT 23.4 seconds (26.0-36.3) L 03/16/19 08:18 Total Bilirubin 0.80 mg/dL (0.2-1.0) 03/14/19 06:46 Direct Bilirubin 0.10 mg/dL (0.03-0.18) 03/14/19 06:46 Indirect Bilirubin 0.7 mg/dL (0.3-1.0) 03/14/19 06:46 AST 13 U/L (13-39) 03/14/19 06:46 ALT 9 U/L (7-52) 03/14/19 06:46 Alkaline Phosphatase 28 U/L (34-104) L 03/14/19 06:46 CK-MB (CK-2) 2.0 ng/mL (0.6-6.3) 03/12/19 22:02 B-Natriuretic Peptide 29 pg/mL (<=100) 03/12/19 22:02 Total Protein 4.9 g/dL (6.4-8.9) L 03/14/19 06:46 Albumin 2.7 g/dL (3.2-5.2) L 03/14/19 06:46 Globulin 2.2 g/dL (2-4) 03/14/19 06:46 Albumin/Globulin Ratio 1.2 (1-3) 03/14/19 06:46 TSH 2.34 mcIU/mL (0.34-5.60) 03/15/19 06:29 03/12/19 22:02 Troponin I 0.03 03/16/2019 mg 2.6 Diagnostic Imaging: Echocardiogram - (02/10/2019) : Mild concentric hypertrophy of the left ventricle. Normal global wall motion. Visual EF 50-55%. Bi atrial enlargement. RV cavity is slightly dilated. Normal right ventricular function.Moderate (grade II) mitral regurgitation, lateral jet. Mild to moderate prolapse of the mitral valve leaflets, anterior predominant. Lovelock tricuspid valve with mild regurgitation. Mildly dilated ascending aorta: 3.8 cm. EKG Data: ekg 03/16/2019: sinus bradycardia 42 bpm, otherwise unremarkable, ekg 03/17/2019 today shows Afib otherwise essentially unremarkable Assessment/Plan 1. Paroxysmal atrial fibrillation, highly symptomatic - On sotalol - Xarelto held due to thrombocytopenia - K 3.7 this AM 2. Marfan's with 4.4 cm aortic root on recent echo and non-severe MVP 3. Unexplained anasarca in setting of low albumin - Ongoing evaluation and treatment. 4. Thrombocytopenia - Ongoing evaluation and treatment Patient requests a cardioversion for atrial fibrillation today. It has been less than 48 hours so BUDDY will not be required beforehand. I would restart the xarelto once hematology issues are stabilized. I restart her home potassium today and per her account is known to go into atrial fibrillation easily with minimal electrolyte disturbances (k 3.7 this AM) Thank you for allowing me to participate in the cardiovacular care of this patient. Please do not hesitate to contact me with questions or concerns.
[2019-03-17 14:26] LABS: BUN/Creatinine Ratio 31.4 (8-20); Calcium 8.3 mg/dL (8.6-10.3); EGFR African American 147.9 (>60); EGFR Non-African American 122.2 (>60); Magnesium 2.5 mg/dL (1.9-2.7); Potassium 3.7 mmol/L (3.5-5.0)
[2019-03-17] MEDS ORDERED: Flumazenil* 0.1 MG/ML 5 ML MDV ONE (15:01)
[2019-03-17] MEDS ORDERED: Midazolam* 1 MG/ML 5 ML VIAL (5 MG) ONE (15:01)
[2019-03-17] MEDS ORDERED: Naloxone* 0.4 MG/ML 1 ML VIAL ONE (15:01)
[2019-03-17] MEDS ORDERED: fentaNYL* 50 MCG/ML 2 ML VIAL (100 MCG VIAL) ONE (15:01)
--- NOTE | 2019-03-17 15:22 | PROCNOTE ---
Cardiology Procedure Note 03/17/2019 External electrical cardioversion Risks, benefits and alternatives discussed and patient wished to proceed Atrial fibrillation < 24 hours so BUDDY not performed 2 mg IV versed, 25 mcg IV fentanyl used for conscious sedation Patient cardioverted from atrial fibrillation rate controlled to sinus bradycardia 40's with 120J external electrical sync x 1 No complications
--- NOTE | 2019-03-17 20:08 | CONS ---
CC: Dr. Ennis; Dr. Henderson * CONSULTATION REPORT: DATE OF CONSULT: 03/17/19 REASON FOR CONSULTATION: Hypoalbuminemia, abdominal pain. HISTORY OF PRESENT ILLNESS: This is a very pleasant 63-year-old female with a history of Marfan syndrome who presented with increasing lower extremity swelling that began in the early part of January, around 03/10/19, that has been slowly increasing to full anasarca to her abdomen. The abdominal involvement was only over the last couple weeks. She had been evaluated as an outpatient with Dr. Ennis and had bilateral lower extremity Dopplers that did show evidence of varicosities in 1 leg with some reflux, but not significant enough to contribute to this bilateral lower extremity edema. She had an outpatient CT that was done on 03/08/19 that showed hepatic steatosis, some diverticulosis , fusiform aneurysm of the midabdominal aorta, mildly prominent retroperitoneal lymph nodes that were unchanged from a prior study, fibroid uterus, and a moderate hiatal hernia. She has been tried on diuretic therapy as an outpatient that did not improve her edema. She states that over the last month and a half or so, she has had some epigastric cramping and some bloating. This has been more pronounced since the swelling has proceeded to her abdomen. She denies any dysphagia, odynophagia. No nausea or vomiting. She states she has a bowel movement on a daily basis, does not have any straining or incomplete evacuation. No diarrhea or constipation. She had a colonoscopy with Dr. Mueller in 2010 with diverticulosis; otherwise, normal. She has no history of liver disease. No history of illicit drug use. She states her weight is increased over this time period. No new medications were started during this time. She denies any herbal supplements, with the exception of some fat- soluble vitamins. Admits to an occasional fever at night, but no nighttime sweats. She also admits to some increased dyspnea on exertion. She presented to the emergency room for these complaints and was found to have a platelet count of 4000. The remainder of the 14-point review of systems is grossly negative. PAST MEDICAL HISTORY: 1. Atrial fibrillation. 2. Marfan syndrome. 3. Thoracic aortic aneurysm, fusiform. 4. Osteopenia. 5. Mitral valve insufficiency. 6. Hypothyroidism. 7. Cataract. 8. Shingles. 9. Lyme. PAST SURGICAL HISTORY: Colonoscopy in 2010, Dr. Mueller, diverticulosis, normal. MEDICATIONS: Home medications include: 1. Magnesium. 2. Irbesartan. 3. Potassium chloride. 4. Sotalol. 5. Xarelto. ALLERGIES: Include SULFA and NICKEL. FAMILY HISTORY: Mother with CVA. Father with Marfan's and CAD. No family history of GI cancer or inflammatory bowel disease. SOCIAL HISTORY: No tobacco. Rare alcohol. 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 REVIEW OF SYSTEMS: Remainder of the 14-point review of systems is negative, except for bilateral lower extremity edema. PHYSICAL EXAMINATION: Vital Signs: Blood pressure 132/85, pulse is 47, respiratory rate is 19, T-max was 98.1. In general, alert and oriented x3, in no acute distress. HEENT: Atraumatic, normocephalic. Pupils equal, round, reactive to light. Extraocular movements are intact. Conjunctivae are pink. Sclerae anicteric. Cardiovascular: Bradycardic. S1, S2. Lungs: Clear to auscultation bilaterally. Abdomen: Soft, nontender, nondistended. Bowel sounds positive. Extremities: Anasarca 3+ to at least thighs to lower part of abdomen. Psych: Appropriate mood and affect. DIAGNOSTIC STUDIES/LAB DATA: Laboratory Data: Hemoglobin 10.3, baseline appeared to be 12 to 13 back in 2007, but had been as high as 15. Platelet count on admission was 4; today is 30, had been as high as 205 in 2018. INR 0.94. Creatinine 0.51, BUN is 16, sodium is 139. Iron is 60, TIBC is 307, percent saturation is 20, ferritin is 38.1. Total bilirubin is 0.8. CRP is 0.8. GGT is 57, AST is 13, ALT is 9, alkaline phosphatase is 28, LDH is 185. Albumin is 2.7; in July of last year, it was 4.3, but appears to average around 3.9 to 4. Vitamin B12 is 107. TSH is 2.34. Urine has 1+ positive proteins, leukocyte esterase trace. JESSEE is 0.7. Abdomen and pelvis CT on 03/08/19 shows mild fusiform aneurysm of the midabdominal aorta, hepatic steatosis, mildly prominent retroperitoneal lymph nodes, moderate sigmoid diverticulosis, fibroid uterus, and moderate hiatal hernia. She had a portal vein ultrasound on 03/13/19 that did not show any evidence of Budd-Chiari or thrombus. She had a liver elastography ordered by myself on 03/17/19 that showed steatosis without significant fibrosis. ASSESSMENT AND PLAN: This is a 63-year-old female with significant new-onset thrombocytopenia, concern for idiopathic thrombocytopenic purpura and hypoalbuminemia with new bilateral lower extremity edema that is worsening to near anasarca without clear etiology. 1. Hypoalbuminemia. Liver elastography appears normal with just scant steatosis without fibrosis. This makes a pure liver etiology unlikely. We will plan on working up for protein losing enteropathy by ordering an alpha-1- antitrypsin stool study along with celiac serologies, immunoglobulins, fibrinogen, and ceruloplasmin. Ideally, would plan on upper endoscopy to evaluate for features of Menetrier disease and other etiologies of protein losing enteropathy including gastritis and other potential causes; however, with her thrombocytopenia and my desire to take significant biopsies, would hold at this time. We will plan on keeping her n.p.o. after midnight for to reevaluate her platelets and consider potential EGD. If not, we will plan on an outpatient EGD in the next couple weeks as long as her platelet count recovers. Should pursue other etiologies including renal etiology and cardiac as warranted along with oncology for her hypoalbuminemia and edema. 2. Epigastric discomfort and bloating. Eventually, we will plan on EGD as she does have a hiatal hernia. Can consider empiric PPI trial. 3. Marfan syndrome with fusiform aneurysm. Being followed by cardiology. [id number]/[facility] #: [id number] [facility]
[2019-03-17] MEDS: Potassium Chlor TAB* 10 MEQ TAB.ER PO SCH (20:44)
[2019-03-18] MEDS: Levothyroxine TAB* 100 MCG TAB PO SCH (05:14)
[2019-03-18 05:51] LABS: ABS Basophils 0 10^3/ul (0-0.2); ABS Eosinophils 0 10^3/ul (0-0.6); ABS Lymphocytes 1.6 10^3/ul (1.0-4.8); ABS Neutrophils 4.3 10^3/ul (1.5-7.7); ABS Nucleated RBC 0 10^3/ul; Eosinophil % 0.2 %; Hematocrit 31 % (33-41); Hemoglobin 10.4 g/dL (12.0-16.0); Lymphocyte % 23.3 %; Mean Corpuscular HGB Conc 34 g/dL (31-36); Mean Corpuscular Hemoglobin 30 pg (27-31); Mean Corpuscular Volume 90 fL (80-97); Nucleated Red Blood Cells % 0.2; Red Blood Count 3.45 10^6 /uL (3.70-4.87); Red Cell Distribution Width 15 % (10.5-15)
[2019-03-18 06:11] LABS: Mean Platelet Volume 12.3 fL (7.4-10.4); Platelet Count 25 10^3/uL (150-450)
[2019-03-18] MEDS: SOTALOL 120 MG PO SCH ×2 (06:55→20:29)
[2019-03-18] MEDS ORDERED: oxyCODONE TAB* 5 MG TAB PO ONE (07:23)
[2019-03-18] MEDS: Acetaminophen TAB* 325 MG PO PRN (07:46)
[2019-03-18] MEDS: Lidocaine PATCH 5%* 1 PATCH TRANSDERM SCH (09:10)
[2019-03-18] MEDS: Cyanocobalamin TAB* 500 MCG PO SCH (09:12)
[2019-03-18] MEDS: Magnesium Oxide TAB* 400 MG PO SCH ×2 (09:13→22:40)
[2019-03-18] MEDS: Potassium Chlor TAB* 10 MEQ TAB.ER PO SCH ×2 (09:13→22:39)
[2019-03-18] MEDS: Thiamine TAB* 100 MG TAB PO SCH (09:13)
[2019-03-18] MEDS: Folic Acid TAB* 1 MG PO SCH (09:14)
[2019-03-18] MEDS: Multivitamins/Minerals TAB PO SCH (09:14)
--- NOTE | 2019-03-18 10:48 | PN ---
Progress Note - Progress Note Date of Service: 03/18/19 SOAP: Subjective: [Patient entered afib again early this am after cardioversion yesterday. No additional bleeding events.] Objective: [ Laboratory Results - last 24 hr 03/15/19 03/17/19 03/17/19 10:50 06:17 17:40 WBC RBC Hgb Hct MCV MCH MCHC RDW Plt Count MPV Neut % (Auto) Lymph % (Auto) [place] % (Auto) Eos % (Auto) Baso % (Auto) Absolute Neuts (auto) Absolute Lymphs (auto) Absolute Monos (auto) Absolute Eos (auto) Absolute Basos (auto) Absolute Nucleated RBC Nucleated RBC % Fibrinogen 143.5 Sodium 139 Potassium 3.7 Chloride 108 Carbon Dioxide 25 Anion Gap 6 BUN 16 Creatinine 0.51 Est GFR ( Amer) 147.9 Est GFR (Non-Af Amer) 122.2 BUN/Creatinine Ratio 31.4 H Glucose 151 H Calcium 8.3 L Magnesium 2.5 Cholesterol Flow Intrp 2-8 Markers Flow Intrp 9-15 Marker tnp Flow Intrp 16+ Markers TNP 03/17/19 03/18/19 17:40 05:04 WBC 7.0 RBC 3.45 L Hgb 10.4 L Hct 31 L MCV 90 MCH 30 MCHC 34 RDW 15 Plt Count 25 L MPV 12.3 H Neut % (Auto) 61.7 Lymph % (Auto) 23.3 [place] % (Auto) 14.7 Eos % (Auto) 0.2 Baso % (Auto) 0.1 Absolute Neuts (auto) 4.3 Absolute Lymphs (auto) 1.6 Absolute Monos (auto) 1.0 H Absolute Eos (auto) 0 Absolute Basos (auto) 0 Absolute Nucleated RBC 0 Nucleated RBC % 0.2 Fibrinogen Sodium Potassium Chloride Carbon Dioxide Anion Gap BUN Creatinine Est GFR ( Amer) Est GFR (Non-Af Amer) BUN/Creatinine Ratio Glucose Calcium Magnesium Cholesterol 166 Flow Intrp 2-8 Markers Flow Intrp 9-15 Marker Flow Intrp 16+ Markers Acetaminophen (Tylenol Tab*) 650 mg PO Q4H PRN PRN Reason: FEVER/PAIN Last Admin: 03/18/19 07:46 Dose: 650 mg Cyanocobalamin (Vitamin B12 Tab*) 5,000 mcg PO DAILY [facility] Last Admin: 03/18/19 09:12 Dose: 5,000 mcg Folic Acid (Folvite Tab*) 1 mg PO DAILY [facility] Last Admin: 03/18/19 09:14 Dose: 1 mg Levothyroxine Sodium (Synthroid Tab*) 100 mcg PO 0600 [facility] Last Admin: 03/18/19 05:14 Dose: 100 mcg Lidocaine (Lidoderm 5% Patch*) 1 patch TRANSDERM DAILY [facility] Last Admin: 03/18/19 09:10 Dose: 1 patch Magnesium Oxide (Magox 400 Tab*) 400 mg PO BID@929,2129 [facility] Last Admin: 03/18/19 09:13 Dose: 400 mg Multivitamins/Minerals (Theragran/Minerals Tab*) 1 tab PO DAILY [facility] Last Admin: 03/18/19 09:14 Dose: 1 tab Ondansetron HCl (Zofran Inj*) 4 mg IV Q4H PRN PRN Reason: NAUSEA/VOMITING Pharmacy Profile Note (Lidocaine Patch Remove*) 1 note N/A 2100 [facility] Last Admin: 03/17/19 20:51 Dose: 1 note Potassium Chloride (Klor Con Er Tab*) 10 meq PO BID [facility] Last Admin: 03/18/19 09:13 Dose: 10 meq Sotalol HCl (Sotalol (Nf)) 60 mg PO 729,1929 [facility] Last Admin: 03/18/19 06:55 Dose: 60 mg Thiamine HCl (Vitamin B-1 Tab*) 100 mg PO DAILY [facility] Last Admin: 03/18/19 09:13 Dose: 100 mg Vital Signs Temp Pulse Resp BP Pulse Ox 97.5 F 86 22 116/89 95 03/18/19 07:32 03/18/19 07:32 03/18/19 08:00 03/18/19 07:32 03/18/19 07:32 Exam: Unable to examine patient today] Assessment: [63 yo female with h/o afib and Marfan's syndrome who presented with c/o fatigue and LE edema and marked thrombocytopenia. 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 She is s/p course of high dose steroids with initial improvement in platelet count. ] Plan: [1. ITP - bone marrow biopsy is normal, consistent with ITP - s/p 4 days of dexamethasone - initial response to dex, but platelets noted to be lower again today, measured at 25K - recommend waiting to initiate 2nd line therapy at this time and re-evaluate platelet count again tomorrow or Thursday depending on dc plans - if platelets are lower again tomorrow plan to initiate IVIG 500 mg/kg x 2d 2. LE edema with low protein - work up unrevealing thus far - no obvious renal, hepatic, or rheumatologic explanation - pending EGD - further evaluation per hospitalist group 3. Afib - s/p cardioversion now with recurrence - management per cardiology - hold anticoagulation 4. Hypothyroidism - euthyroid state, TSH 2.3 - cont levothyroxine] 5. vit B12 deficiency - cont oral B2 supp - MMA normal 6. Marfans - stable aortic aneurysms] Dispo: per Hospitalist team. Follow up with Dr Coyle 03/22 in the clinic if discharged over the weekend
--- NOTE | 2019-03-18 11:09 | PN ---
Subjective Date of Service: 03/18/19 Interval History: C/O L shoulder pain 02/06, often occurs during her atrial fib which she can sense. Uses only APAP at home, some relie with lidocaine patch here. Family History: Unchanged from Admission Social History: Unchanged from Admission Past Medical History: Unchanged from Admission Objective Active Medications: Acetaminophen (Tylenol Tab*) 650 mg PO Q4H PRN PRN Reason: FEVER/PAIN Last Admin: 03/18/19 07:46 Dose: 650 mg Cyanocobalamin (Vitamin B12 Tab*) 1,000 mcg PO DAILY [facility] Folic Acid (Folvite Tab*) 1 mg PO DAILY [facility] Last Admin: 03/18/19 09:14 Dose: 1 mg Levothyroxine Sodium (Synthroid Tab*) 100 mcg PO 0600 [facility] Last Admin: 03/18/19 05:14 Dose: 100 mcg Lidocaine (Lidoderm 5% Patch*) 1 patch TRANSDERM DAILY [facility] Last Admin: 03/18/19 09:10 Dose: 1 patch Magnesium Oxide (Magox 400 Tab*) 400 mg PO BID@929,2129 [facility] Last Admin: 03/18/19 09:13 Dose: 400 mg Multivitamins/Minerals (Theragran/Minerals Tab*) 1 tab PO DAILY [facility] Last Admin: 03/18/19 09:14 Dose: 1 tab Ondansetron HCl (Zofran Inj*) 4 mg IV Q4H PRN PRN Reason: NAUSEA/VOMITING Pharmacy Profile Note (Lidocaine Patch Remove*) 1 note N/A 2100 [facility] Last Admin: 03/17/19 20:51 Dose: 1 note Potassium Chloride (Klor Con Er Tab*) 10 meq PO BID [facility] Last Admin: 03/18/19 09:13 Dose: 10 meq Sotalol HCl (Sotalol (Nf)) 60 mg PO 729,1929 [facility] Last Admin: 03/18/19 06:55 Dose: 60 mg Thiamine HCl (Vitamin B-1 Tab*) 100 mg PO DAILY [facility] Last Admin: 03/18/19 09:13 Dose: 100 mg Vital Signs - 8 hr 03/18/19 03/18/19 03/18/19 03:05 06:47 07:32 Temperature 98.4 F 97.5 F Pulse Rate 43 99 86 Respiratory 16 21 Rate Blood Pressure 111/57 138/90 116/89 (mmHg) O2 Sat by Pulse 95 95 Oximetry 03/18/19 08:00 Temperature Pulse Rate Respiratory 22 Rate Blood Pressure (mmHg) O2 Sat by Pulse Oximetry Oxygen Devices in Use Now: Nasal Cannula Appearance: Alert, in bed with both legs elevated. In fair spirit. Looks comfortable. Eyes: No Scleral Icterus Respiratory: Symmetrical Chest Expansion and Respiratory Effort, Clear to Auscultation, Clear to Percussion Cardiovascular: NL Sounds; No Murmurs; No JVD, No Edema, - - irreg irreg, rapid Extremities: No Clubbing, Cyanosis, - - 1+ edema BL. Elongated fingers. Skin: No Rash or Ulcers, No Nodules or Sclerosis Neurological: Alert and Oriented x 3, NL Sensation Result Diagrams: 03/18/19 05:04 03/17/19 06:17 Additional Lab and Data: Laboratory Tests 03/15/19 03/17/19 06:29 06:17 GGT 57 Anti-Nuclear Antibody 0.7 BM-Bx: hypercellular marrow c/w ITP Microbiology and Other Data: Microbiology 03/13/19 04:30 Urine Culture - Final Urine Diagnostic Imaging: U/S: liver parenchyma reported as normal verbally. CT this month prior to admit : fatty liver EKG Data: EKG: a-fib, V rate 91 Assess/Plan/Problems-Billing Assessment: 63 y/o female admitted for acute thrombocytopenia 4000 and LE edema. Working diagnosis ITP, also has recurrent AF, low albumin. - Patient Problems (1) Thrombocytopenia Current Visit: Yes Status: Acute Priority: High Code(s): D69.6 - THROMBOCYTOPENIA, UNSPECIFIED SNOMED Code(s): 749228494 Comment: Completed 4 days IV dexamethasone 40mg/d. CBC 03/19. Discussed with Kylah Beauchamp. (2) Atrial fibrillation Current Visit: Yes Status: Chronic Priority: Medium Onset Date: 09/29/14 Code(s): I48.91 - UNSPECIFIED ATRIAL FIBRILLATION SNOMED Code(s): 33059080 Comment: - A-fib is recurrent - Continue sotalol 60 mg bid, discussed fact that sotalol can cause LE edema Had cardioversion about 4 PM 03/17, went back to a fib 03/18 6:[address] Miller. He will talk to pt again 03/18. ? change anti-arrhytmic, ? PPM. Hold rivaroxaban while platelets < 50. (3) Marfan's syndrome Current Visit: No Status: Chronic Code(s): Q87.40 - MARFAN'S SYNDROME, UNSPECIFIED SNOMED Code(s): 57349368 Comment: - Continue outpatient follow-up with PCP. - Abdominal aorta 2.[address] abdomen 02/2019; CTA chest 08/09/2018 did not show any evidence of aneurysm or dissections. - unless repeat CT of chest is warranted as part as work up for her thrombocytopenia if recommended by hem/onc, continue routine f/up for aneurysm, MV prolapse. (4) Edema Current Visit: Yes Status: Acute Priority: Medium Code(s): R60.9 - EDEMA, UNSPECIFIED SNOMED Code(s): 679876978 Comment: - 24h urine shows no proteinuria. - Dr Delgado ordered w/up for protein-losing enteropathy. Eventually needs EGD , can be done as outpt when platelet count higher. (5) B12 deficiency Current Visit: Yes Status: Acute Priority: Medium Code(s): E53.8 - DEFICIENCY OF OTHER SPECIFIED B GROUP VITAMINS SNOMED Code(s): 829001470 Comment: Note nl methylmalonic acid level, probably can stop B12 later, for now continue po tx. (6) Migraine aura without headache Current Visit: Yes Status: Acute Code(s): G43.109 - MIGRAINE WITH AURA, NOT INTRACTABLE, W/O STATUS MIGRAINOSUS SNOMED Code(s): 523792720 Comment: In past had migraine H/A with aura, same aura. Discussed with patient, not a major problem for her. Status and Disposition: inpatient
[2019-03-18] MEDS ORDERED: Potassium Chlor TAB* 20 MEQ TAB.ER PO ONE (12:59)
--- NOTE | 2019-03-18 13:06 | PN ---
Subjective Date of Service: 03/18/19 Interval History: Pafib Went back into afib overnight Cannot tolerate being in anymore, exhausted and chest pain We discussed stopping sotalol, waiting 3 days and starting tikosyn, she declined Wants more potassium and to be cardioverted again today home dose of potassium was actually 20 bid, not 10 bid Medications Active Medications: Acetaminophen (Tylenol Tab*) 650 mg PO Q4H PRN PRN Reason: FEVER/PAIN Last Admin: 03/18/19 07:46 Dose: 650 mg Cyanocobalamin (Vitamin B12 Tab*) 1,000 mcg PO DAILY [facility] Folic Acid (Folvite Tab*) 1 mg PO DAILY [facility] Last Admin: 03/18/19 09:14 Dose: 1 mg Levothyroxine Sodium (Synthroid Tab*) 100 mcg PO 0600 [facility] Last Admin: 03/18/19 05:14 Dose: 100 mcg Lidocaine (Lidoderm 5% Patch*) 1 patch TRANSDERM DAILY [facility] Last Admin: 03/18/19 09:10 Dose: 1 patch Magnesium Oxide (Magox 400 Tab*) 400 mg PO BID@929,2129 [facility] Last Admin: 03/18/19 09:13 Dose: 400 mg Multivitamins/Minerals (Theragran/Minerals Tab*) 1 tab PO DAILY [facility] Last Admin: 03/18/19 09:14 Dose: 1 tab Ondansetron HCl (Zofran Inj*) 4 mg IV Q4H PRN PRN Reason: NAUSEA/VOMITING Pharmacy Profile Note (Lidocaine Patch Remove*) 1 note N/A 2100 [facility] Last Admin: 03/17/19 20:51 Dose: 1 note Potassium Chloride (Klor Con Er Tab*) 20 meq PO BID [facility] Sotalol HCl (Sotalol (Nf)) 60 mg PO 729,1929 [facility] Last Admin: 03/18/19 06:55 Dose: 60 mg Thiamine HCl (Vitamin B-1 Tab*) 100 mg PO DAILY [facility] Last Admin: 03/18/19 09:13 Dose: 100 mg Objective Vital Signs: Temp Pulse Resp BP Pulse Ox 97.9 F 132 20 138/77 96 03/18/19 11:21 03/18/19 11:21 03/18/19 11:21 03/18/19 11:21 03/18/19 11:21 Oxygen Devices in Use Now: Nasal Cannula Appearance: pleasant, nad Ears/Nose/Mouth/Throat: Clear Oropharnyx Neck: Trachea Midline, No Thyroid Enlargement, Masses Respiratory: Symmetrical Chest Expansion and Respiratory Effort, - - no wheeze or rales Cardiovascular: - - irregularly irregular, no significant keith anoted Abdominal: - - soft, nontender Extremities: - - + anasarca, no open wounds Skin: No Rash or Ulcers Neurological: Alert and Oriented x 3 Laboratory Results: 03/18/19 05:04 03/17/19 06:17 INR (Anticoag Therapy) 0.94 (0.77-1.02) 03/16/19 08:18 APTT 23.4 seconds (26.0-36.3) L 03/16/19 08:18 Total Bilirubin 0.80 mg/dL (0.2-1.0) 03/14/19 06:46 Direct Bilirubin 0.10 mg/dL (0.03-0.18) 03/14/19 06:46 Indirect Bilirubin 0.7 mg/dL (0.3-1.0) 03/14/19 06:46 AST 13 U/L (13-39) 03/14/19 06:46 ALT 9 U/L (7-52) 03/14/19 06:46 Alkaline Phosphatase 28 U/L (34-104) L 03/14/19 06:46 CK-MB (CK-2) 2.0 ng/mL (0.6-6.3) 03/12/19 22:02 B-Natriuretic Peptide 29 pg/mL (<=100) 03/12/19 22:02 Total Protein 4.9 g/dL (6.4-8.9) L 03/14/19 06:46 Albumin 2.7 g/dL (3.2-5.2) L 03/14/19 06:46 Globulin 2.2 g/dL (2-4) 03/14/19 06:46 Albumin/Globulin Ratio 1.2 (1-3) 03/14/19 06:46 Cholesterol 166 mg/dL 03/17/19 17:40 TSH 2.34 mcIU/mL (0.34-5.60) 03/15/19 06:29 03/12/19 22:02 Troponin I 0.03 Diagnostic Imaging: Echocardiogram - (02/10/2019) : Mild concentric hypertrophy of the left ventricle. Normal global wall motion. Visual EF 50-55%. Bi atrial enlargement. RV cavity is slightly dilated. Normal right ventricular function.Moderate (grade II) mitral regurgitation, lateral jet. Mild to moderate prolapse of the mitral valve leaflets, anterior predominant. [place] tricuspid valve with mild regurgitation. Mildly dilated ascending aorta: 3.8 cm. EKG Data: ekg 03/16/2019: sinus bradycardia 42 bpm, otherwise unremarkable, ekg 03/17/2019 today shows Afib otherwise essentially unremarkable Assessment/Plan 1. Paroxysmal atrial fibrillation, highly symptomatic - On sotalol - Xarelto held due to thrombocytopenia 2. Marfan's with 4.4 cm aortic root on recent echo and non-severe MVP 3. Unexplained anasarca in setting of low albumin - Ongoing evaluation and treatment. 4. Thrombocytopenia - Ongoing evaluation and treatment Patient requests a cardioversion for atrial fibrillation again today. It has been less than 48 hours so BUDDY will not be required beforehand. I would restart the xarelto once hematology issues are stabilized. I gave her an extra dose of potassium 40 meq x 1 now and increased K back to her home dosing of 20 bid and ordered electrolytes for tomorrow AM Thank you for allowing me to participate in the cardiovacular care of this patient. Please do not hesitate to contact me with questions or concerns.
[2019-03-18] MEDS ORDERED: fentaNYL* 50 MCG/ML 2 ML VIAL (100 MCG VIAL) ONE (15:14)
[2019-03-18] MEDS ORDERED: Flumazenil* 0.1 MG/ML 5 ML MDV ONE (15:14)
[2019-03-18] MEDS ORDERED: Naloxone* 0.4 MG/ML 1 ML VIAL ONE (15:14)
[2019-03-18] MEDS ORDERED: Midazolam* 1 MG/ML 5 ML VIAL (5 MG) ONE (15:14)
[2019-03-18] MEDS: Lidocaine Patch REMOVE* 1 NOTE MISC SCH (21:30)
[2019-03-19] MEDS: Levothyroxine TAB* 100 MCG TAB PO SCH (05:34)
[2019-03-19 06:03] LABS: BUN/Creatinine Ratio 27.4 (8-20); Calcium 8.2 mg/dL (8.6-10.3); EGFR Non-African American 97.5 (>60); Magnesium 2.2 mg/dL (1.9-2.7); Potassium 4.2 mmol/L (3.5-5.0)
[2019-03-19] MEDS: SOTALOL 120 MG PO SCH ×2 (07:42→19:33)
[2019-03-19 08:14] LABS: ABS Basophils 0 10^3/ul (0-0.2); ABS Eosinophils 0.1 10^3/ul (0-0.6); ABS Lymphocytes 1.2 10^3/ul (1.0-4.8); ABS Monocytes 1.2 10^3/ul (0-0.8); ABS Nucleated RBC 0 10^3/ul; Eosinophil % 1.4 %; Hematocrit 34 % (33-41); Hemoglobin 11.3 g/dL (12.0-16.0); Lymphocyte % 15.6 %; Mean Corpuscular HGB Conc 34 g/dL (31-36); Mean Corpuscular Hemoglobin 30 pg (27-31); Mean Corpuscular Volume 90 fL (80-97); Mean Platelet Volume 9.8 fL (7.4-10.4); Nucleated Red Blood Cells % 0.2; Platelet Count 20 10^3/uL (150-450); Red Blood Count 3.74 10^6 /uL (3.70-4.87); Red Cell Distribution Width 15 % (10.5-15); White Blood Count 7.4 10^3/uL (3.5-10.8)
[2019-03-19] MEDS: Cyanocobalamin TAB* 500 MCG PO SCH (09:33)
[2019-03-19] MEDS: Thiamine TAB* 100 MG TAB PO SCH (09:34)
[2019-03-19] MEDS: Magnesium Oxide TAB* 400 MG PO SCH ×2 (09:34→21:23)
[2019-03-19] MEDS: Lidocaine PATCH 5%* 1 PATCH TRANSDERM SCH ×2 (09:34→09:35)
[2019-03-19] MEDS: Folic Acid TAB* 1 MG PO SCH (09:34)
[2019-03-19] MEDS: Potassium Chlor TAB* 10 MEQ TAB.ER PO SCH ×2 (09:34→21:23)
[2019-03-19] MEDS: Multivitamins/Minerals TAB PO SCH (09:34)
--- NOTE | 2019-03-19 12:14 | PN ---
Subjective Date of Service: 03/19/19 Interval History: Pafib maintained sinus rhythm/bradycardia overnight less fatigued no cp Medications Active Medications: Acetaminophen (Tylenol Tab*) 650 mg PO Q4H PRN PRN Reason: FEVER/PAIN Last Admin: 03/18/19 07:46 Dose: 650 mg Cyanocobalamin (Vitamin B12 Tab*) 1,000 mcg PO DAILY [facility] Last Admin: 03/19/19 09:33 Dose: 1,000 mcg Folic Acid (Folvite Tab*) 1 mg PO DAILY [facility] Last Admin: 03/19/19 09:34 Dose: 1 mg Immune Globulin 40 gm/ IV (Solution) 400 mls @ 0 mls/hr IV Q24H [facility]; Protocol Stop: 03/20/19 10:01 Levothyroxine Sodium (Synthroid Tab*) 100 mcg PO 0600 [facility] Last Admin: 03/19/19 05:34 Dose: 100 mcg Lidocaine (Lidoderm 5% Patch*) 1 patch TRANSDERM DAILY [facility] Last Admin: 03/19/19 09:35 Dose: Not Given Magnesium Oxide (Magox 400 Tab*) 400 mg PO BID@929,2129 [facility] Last Admin: 03/19/19 09:34 Dose: 400 mg Multivitamins/Minerals (Theragran/Minerals Tab*) 1 tab PO DAILY [facility] Last Admin: 03/19/19 09:34 Dose: 1 tab Ondansetron HCl (Zofran Inj*) 4 mg IV Q4H PRN PRN Reason: NAUSEA/VOMITING Pharmacy Profile Note (Lidocaine Patch Remove*) 1 note N/A 2100 [facility] Last Admin: 03/18/19 21:30 Dose: 1 note Potassium Chloride (Klor Con Er Tab*) 20 meq PO BID [facility] Last Admin: 03/19/19 09:34 Dose: 20 meq Sotalol HCl (Sotalol (Nf)) 60 mg PO 729,1929 [facility] Last Admin: 03/19/19 07:42 Dose: 60 mg Thiamine HCl (Vitamin B-1 Tab*) 100 mg PO DAILY [facility] Last Admin: 03/19/19 09:34 Dose: 100 mg Objective Vital Signs: Temp Pulse Resp BP Pulse Ox 98.7 F 50 16 133/71 93 03/19/19 07:13 03/19/19 07:13 03/19/19 07:13 03/19/19 07:13 03/19/19 07:13 Oxygen Devices in Use Now: Nasal Cannula Appearance: pleasant, nad Ears/Nose/Mouth/Throat: Clear Oropharnyx Neck: Trachea Midline, No Thyroid Enlargement, Masses Respiratory: Symmetrical Chest Expansion and Respiratory Effort, - - no wheeze or rales Cardiovascular: RRR, - Abdominal: - - soft, nontender Extremities: - - + anasarca, no open wounds Skin: No Rash or Ulcers Neurological: Alert and Oriented x 3 Laboratory Results: 03/19/19 08:01 03/19/19 05:20 INR (Anticoag Therapy) 0.94 (0.77-1.02) 03/16/19 08:18 APTT 23.4 seconds (26.0-36.3) L 03/16/19 08:18 Total Bilirubin 0.80 mg/dL (0.2-1.0) 03/14/19 06:46 Direct Bilirubin 0.10 mg/dL (0.03-0.18) 03/14/19 06:46 Indirect Bilirubin 0.7 mg/dL (0.3-1.0) 03/14/19 06:46 AST 13 U/L (13-39) 03/14/19 06:46 ALT 9 U/L (7-52) 03/14/19 06:46 Alkaline Phosphatase 28 U/L (34-104) L 03/14/19 06:46 CK-MB (CK-2) 2.0 ng/mL (0.6-6.3) 03/12/19 22:02 B-Natriuretic Peptide 29 pg/mL (<=100) 03/12/19 22:02 Total Protein 4.9 g/dL (6.4-8.9) L 03/14/19 06:46 Albumin 2.7 g/dL (3.2-5.2) L 03/14/19 06:46 Globulin 2.2 g/dL (2-4) 03/14/19 06:46 Albumin/Globulin Ratio 1.2 (1-3) 03/14/19 06:46 Cholesterol 166 mg/dL 03/17/19 17:40 TSH 2.34 mcIU/mL (0.34-5.60) 03/15/19 06:29 03/12/19 22:02 Troponin I 0.03 Diagnostic Imaging: Echocardiogram - (02/10/2019) : Mild concentric hypertrophy of the left ventricle. Normal global wall motion. Visual EF 50-55%. Bi atrial enlargement. RV cavity is slightly dilated. Normal right ventricular function.Moderate (grade II) mitral regurgitation, lateral jet. Mild to moderate prolapse of the mitral valve leaflets, anterior predominant. [place] tricuspid valve with mild regurgitation. Mildly dilated ascending aorta: 3.8 cm. EKG Data: ekg 03/16/2019: sinus bradycardia 42 bpm, otherwise unremarkable, ekg 03/17/2019 today shows Afib otherwise essentially unremarkable Assessment/Plan 1. Paroxysmal atrial fibrillation, highly symptomatic - On sotalol - Xarelto held due to thrombocytopenia 2. Marfan's with 4.4 cm aortic root on recent echo and non-severe MVP 3. Unexplained anasarca in setting of low albumin - Ongoing evaluation and treatment. 4. Thrombocytopenia - Ongoing evaluation and treatment - continue home sotalol, potassium and magnesium - restart xarelto when ok from a hematology standpoint Thank you for allowing me to participate in the cardiovacular care of this patient. Please do not hesitate to contact me with questions or concerns.
--- NOTE | 2019-03-19 13:20 | PN ---
Subjective Date of Service: 03/19/19 Interval History: C/O abdominal bloating. Overall has more energy than on admission. Family History: Unchanged from Admission Social History: Unchanged from Admission Past Medical History: Unchanged from Admission Objective Active Medications: Acetaminophen (Tylenol Tab*) 650 mg PO Q4H PRN PRN Reason: FEVER/PAIN Last Admin: 03/18/19 07:46 Dose: 650 mg Cyanocobalamin (Vitamin B12 Tab*) 1,000 mcg PO DAILY [facility] Last Admin: 03/19/19 09:33 Dose: 1,000 mcg Folic Acid (Folvite Tab*) 1 mg PO DAILY [facility] Last Admin: 03/19/19 09:34 Dose: 1 mg Immune Globulin 40 gm/ IV (Solution) 400 mls @ 0 mls/hr IV Q24H [facility]; Protocol Stop: 03/20/19 10:01 Levothyroxine Sodium (Synthroid Tab*) 100 mcg PO 0600 [facility] Last Admin: 03/19/19 05:34 Dose: 100 mcg Lidocaine (Lidoderm 5% Patch*) 1 patch TRANSDERM DAILY [facility] Last Admin: 03/19/19 09:35 Dose: Not Given Magnesium Oxide (Magox 400 Tab*) 400 mg PO BID@0930,2130 [facility] Last Admin: 03/19/19 09:34 Dose: 400 mg Multivitamins/Minerals (Theragran/Minerals Tab*) 1 tab PO DAILY [facility] Last Admin: 03/19/19 09:34 Dose: 1 tab Ondansetron HCl (Zofran Inj*) 4 mg IV Q4H PRN PRN Reason: NAUSEA/VOMITING Pharmacy Profile Note (Lidocaine Patch Remove*) 1 note N/A 2100 [facility] Last Admin: 03/18/19 21:30 Dose: 1 note Potassium Chloride (Klor Con Er Tab*) 20 meq PO BID [facility] Last Admin: 03/19/19 09:34 Dose: 20 meq Sotalol HCl (Sotalol (Nf)) 60 mg PO 07,1929 [facility] Last Admin: 03/19/19 07:42 Dose: 60 mg Thiamine HCl (Vitamin B-1 Tab*) 100 mg PO DAILY [facility] Last Admin: 03/19/19 09:34 Dose: 100 mg Vital Signs - 8 hr 03/19/19 03/19/19 07:13 10:51 Temperature 98.7 F 97.9 F Pulse Rate 50 52 Respiratory 16 16 Rate Blood Pressure 133/71 123/61 (mmHg) O2 Sat by Pulse 93 98 Oximetry Oxygen Devices in Use Now: Nasal Cannula Appearance: Alert, partly up in bed. In good spirits. Looks comfortable. Eyes: No Scleral Icterus Respiratory: Symmetrical Chest Expansion and Respiratory Effort, Clear to Auscultation, Clear to Percussion Cardiovascular: NL Sounds; No Murmurs; No JVD, RRR, No Edema, - Extremities: No Edema, No Clubbing, Cyanosis, - Skin: No Rash or Ulcers, No Nodules or Sclerosis, - Neurological: Alert and Oriented x 3, NL Sensation Result Diagrams: 03/19/19 08:01 03/19/19 05:20 Additional Lab and Data: Laboratory Tests 03/15/19 03/17/19 06:29 06:17 GGT 57 Anti-Nuclear Antibody 0.7 BM-Bx: hypercellular marrow c/w ITP Microbiology and Other Data: Microbiology 03/13/19 04:30 Urine Culture - Final Urine Diagnostic Imaging: U/S: liver parenchyma reported as normal verbally. CT this month prior to admit : fatty liver EKG Data: EKG: a-fib, V rate 91 Assess/Plan/Problems-Billing Assessment: 63 y/o female admitted for acute thrombocytopenia 4000 and LE edema. Working diagnosis ITP, also has recurrent AF, low albumin. - Patient Problems (1) Thrombocytopenia Current Visit: Yes Status: Acute Priority: High Code(s): D69.6 - THROMBOCYTOPENIA, UNSPECIFIED SNOMED Code(s): 820097941 Comment: Start 2 day course IgG 50 mg/kg/day 03/19. Discussed with Dr. Huerta 03/19. CBC 03/20. (2) Atrial fibrillation Current Visit: Yes Status: Chronic Priority: Medium Onset Date: 09/29/14 Code(s): I48.91 - UNSPECIFIED ATRIAL FIBRILLATION SNOMED Code(s): 60371063 Comment: - A-fib is recurrent - Continue sotalol 60 mg bid. Had cardioversion in PM 03/18, in NSR 03/[address] Miller again 03/19. Hold rivaroxaban while platelets < 50. (3) Marfan's syndrome Current Visit: No Status: Chronic Code(s): Q87.40 - MARFAN'S SYNDROME, UNSPECIFIED SNOMED Code(s): 28765486 Comment: - Continue outpatient follow-up with PCP. - Abdominal aorta 2.[address] abdomen 02/2019; CTA chest 08/09/2018 did not show any evidence of aneurysm or dissections. - unless repeat CT of chest is warranted as part as work up for her thrombocytopenia if recommended by hem/onc, continue routine f/up for aneurysm, MV prolapse. (4) Edema Current Visit: Yes Status: Acute Priority: Medium Code(s): R60.9 - EDEMA, UNSPECIFIED SNOMED Code(s): 282658798 Comment: - 24h urine shows no proteinuria. - Dr Delgado ordered w/up for protein-losing enteropathy. Eventually needs EGD , can be done as outpt when platelet count higher. (5) B12 deficiency Current Visit: Yes Status: Acute Priority: Medium Code(s): E53.8 - DEFICIENCY OF OTHER SPECIFIED B GROUP VITAMINS SNOMED Code(s): 699891158 Comment: Note nl methylmalonic acid level, probably can stop B12 later, for now continue po tx. (6) Migraine aura without headache Current Visit: Yes Status: Acute Code(s): G43.109 - MIGRAINE WITH AURA, NOT INTRACTABLE, W/O STATUS MIGRAINOSUS SNOMED Code(s): 611586537 Comment: In past had migraine H/A with aura, same aura. Discussed with patient, not a major problem for her. Status and Disposition: inpatient
[2019-03-19 13:28] LABS: Ceruloplasmin 19.2 mg/dL
[2019-03-19] MEDS: IMMUNE GLOBULN IV SCH (13:41)
[2019-03-19 15:34] LABS: Haptoglobin 86 mg/dL (30 - 200); Immunoglobulin G 1330 mg/dL (767 - 1590)
[2019-03-19 15:46] LABS: Immunoglobulin A 115 mg/dL (61 - 356); Immunoglobulin M 97 mg/dL (37 - 286)
[2019-03-19] MEDS: Lidocaine Patch REMOVE* 1 NOTE MISC SCH (21:24)
[2019-03-19 23:26] LABS: Tissue Transglutaminase IgA Ab <1.2 U/mL
[2019-03-20] MEDS: Levothyroxine TAB* 100 MCG TAB PO SCH (05:09)
[2019-03-20] MEDS: SOTALOL 120 MG PO SCH (07:22)
[2019-03-20 08:13] LABS: ABS Basophils 0 10^3/ul (0-0.2); ABS Eosinophils 0.2 10^3/ul (0-0.6); ABS Lymphocytes 1.1 10^3/ul (1.0-4.8); ABS Monocytes 0.9 10^3/ul (0-0.8); ABS Nucleated RBC 0 10^3/ul; Eosinophil % 2.5 %; Hematocrit 35 % (33-41); Hemoglobin 11.7 g/dL (12.0-16.0); Lymphocyte % 18.4 %; Mean Corpuscular HGB Conc 33 g/dL (31-36); Mean Corpuscular Hemoglobin 30 pg (27-31); Mean Corpuscular Volume 89 fL (80-97); Mean Platelet Volume 11.1 fL (7.4-10.4); Nucleated Red Blood Cells % 0; Platelet Count 25 10^3/uL (150-450); Red Blood Count 3.92 10^6 /uL (3.70-4.87); Red Cell Distribution Width 15 % (10.5-15); White Blood Count 6.3 10^3/uL (3.5-10.8)
[2019-03-20] MEDS: Folic Acid TAB* 1 MG PO SCH (09:41)
[2019-03-20] MEDS: Thiamine TAB* 100 MG TAB PO SCH (09:42)
[2019-03-20] MEDS: Cyanocobalamin TAB* 500 MCG PO SCH (09:42)
[2019-03-20] MEDS: Magnesium Oxide TAB* 400 MG PO SCH (09:42)
[2019-03-20] MEDS: Lidocaine PATCH 5%* 1 PATCH TRANSDERM SCH (09:42)
[2019-03-20] MEDS: Potassium Chlor TAB* 10 MEQ TAB.ER PO SCH (09:42)
[2019-03-20] MEDS: Multivitamins/Minerals TAB PO SCH (09:42)
--- NOTE | 2019-03-20 09:45 | PN ---
Subjective Date of Service: 03/20/19 Interval History: Pafib maintained sinus rhythm/bradycardia overnight HR higher with further time from cardioversion Medications Active Medications: Acetaminophen (Tylenol Tab*) 650 mg PO Q4H PRN PRN Reason: FEVER/PAIN Last Admin: 03/18/19 07:46 Dose: 650 mg Cyanocobalamin (Vitamin B12 Tab*) 1,000 mcg PO DAILY [facility] Last Admin: 03/20/19 09:42 Dose: 1,000 mcg Folic Acid (Folvite Tab*) 1 mg PO DAILY [facility] Last Admin: 03/20/19 09:41 Dose: 1 mg Immune Globulin 40 gm/ IV (Solution) 400 mls @ 0 mls/hr IV Q24H [facility]; Protocol Stop: 03/20/19 10:01 Last Admin: 03/19/19 13:41 Dose: 24 mls/hr Levothyroxine Sodium (Synthroid Tab*) 100 mcg PO 0600 [facility] Last Admin: 03/20/19 05:09 Dose: 100 mcg Lidocaine (Lidoderm 5% Patch*) 1 patch TRANSDERM DAILY [facility] Last Admin: 03/20/19 09:42 Dose: Not Given Magnesium Oxide (Magox 400 Tab*) 400 mg PO BID@0930,2130 [facility] Last Admin: 03/20/19 09:42 Dose: 400 mg Multivitamins/Minerals (Theragran/Minerals Tab*) 1 tab PO DAILY [facility] Last Admin: 03/20/19 09:42 Dose: 1 tab Ondansetron HCl (Zofran Inj*) 4 mg IV Q4H PRN PRN Reason: NAUSEA/VOMITING Pharmacy Profile Note (Lidocaine Patch Remove*) 1 note N/A 2100 [facility] Last Admin: 03/19/19 21:24 Dose: 1 note Potassium Chloride (Klor Con Er Tab*) 20 meq PO BID [facility] Last Admin: 03/20/19 09:42 Dose: 20 meq Sotalol HCl (Sotalol (Nf)) 60 mg PO 07,0 [facility] Last Admin: 03/20/19 07:22 Dose: 60 mg Thiamine HCl (Vitamin B-1 Tab*) 100 mg PO DAILY [facility] Last Admin: 03/20/19 09:42 Dose: 100 mg Objective Vital Signs: Temp Pulse Resp BP Pulse Ox 98.1 F 49 16 124/68 93 03/20/19 07:19 03/20/19 07:19 03/20/19 07:55 03/20/19 07:19 03/20/19 07:19 Oxygen Devices in Use Now: None Appearance: pleasant, nad Ears/Nose/Mouth/Throat: Clear Oropharnyx Neck: Trachea Midline, No Thyroid Enlargement, Masses Respiratory: Symmetrical Chest Expansion and Respiratory Effort, - - no wheeze or rales Cardiovascular: RRR, - Abdominal: - - soft, nontender Extremities: - - 2+ edema, improved Skin: No Rash or Ulcers Neurological: Alert and Oriented x 3 Laboratory Results: 03/20/19 07:25 03/19/19 05:20 INR (Anticoag Therapy) 0.94 (0.77-1.02) 03/16/19 08:18 APTT 23.4 seconds (26.0-36.3) L 03/16/19 08:18 Total Bilirubin 0.80 mg/dL (0.2-1.0) 03/14/19 06:46 Direct Bilirubin 0.10 mg/dL (0.03-0.18) 03/14/19 06:46 Indirect Bilirubin 0.7 mg/dL (0.3-1.0) 03/14/19 06:46 AST 13 U/L (13-39) 03/14/19 06:46 ALT 9 U/L (7-52) 03/14/19 06:46 Alkaline Phosphatase 28 U/L (34-104) L 03/14/19 06:46 CK-MB (CK-2) 2.0 ng/mL (0.6-6.3) 03/12/19 22:02 B-Natriuretic Peptide 29 pg/mL (<=100) 03/12/19 22:02 Total Protein 4.9 g/dL (6.4-8.9) L 03/14/19 06:46 Albumin 3.0 g/dL (3.2-5.2) L 03/20/19 07:25 Globulin 2.2 g/dL (2-4) 03/14/19 06:46 Albumin/Globulin Ratio 1.2 (1-3) 03/14/19 06:46 Cholesterol 166 mg/dL 03/17/19 17:40 TSH 2.34 mcIU/mL (0.34-5.60) 03/15/19 06:29 03/12/19 22:02 Troponin I 0.03 Diagnostic Imaging: Echocardiogram - (02/10/2019) : Mild concentric hypertrophy of the left ventricle. Normal global wall motion. Visual EF 50-55%. Bi atrial enlargement. RV cavity is slightly dilated. Normal right ventricular function.Moderate (grade II) mitral regurgitation, lateral jet. Mild to moderate prolapse of the mitral valve leaflets, anterior predominant. [place] tricuspid valve with mild regurgitation. Mildly dilated ascending aorta: 3.8 cm. EKG Data: ekg 03/16/2019: sinus bradycardia 42 bpm, otherwise unremarkable, ekg 03/17/2019 today shows Afib otherwise essentially unremarkable Assessment/Plan 1. Paroxysmal atrial fibrillation, highly symptomatic - On sotalol - Xarelto held due to thrombocytopenia 2. Marfan's with 4.4 cm aortic root on recent echo and non-severe MVP 3. Unexplained anasarca in setting of low albumin - Ongoing evaluation and treatment. 4. Thrombocytopenia - Ongoing evaluation and treatment - continue home sotalol, potassium and magnesium - restart xarelto when ok from a hematology standpoint Thank you for allowing me to participate in the cardiovascular care of this patient. Please do not hesitate to contact me with questions or concerns.
[2019-03-20] MEDS: IMMUNE GLOBULN IV SCH (09:53)
[2019-03-20 14:16] VITALS: BP 121/69
--- NOTE | 2019-03-20 14:34 | PN ---
Progress Note - Progress Note Date of Service: 03/20/19 Note: Time spent on discharge including exam of patient, discussion with patient, nurse, Dr. Pedro, review of EMR and preparation of discharge documents is 45 minutes.
--- NOTE | 2019-03-20 21:33 | DS ---
CC: Dr. Huerta; Dr. Henderson; Dr. Delgado; Dr. Ennis. * DISCHARGE SUMMARY: DATE OF ADMISSION: 03/13/19 DATE OF DISCHARGE: 03/20/19 HISTORY OF PRESENT ILLNESS: This 63-year-old woman presented with a chief complaint of bilateral lower extremity swelling. She had also noticed some bruising of her arms and epistaxis. She had not been on any new medications. She had a temperature at home up to 100 degrees, no night sweats. In the emergency room, she was found to have a platelet count of 4000 and was admitted primarily for that reason. She was found to have ITP. Bone marrow examination was unremarkable, it was hypercellular. Flow cytometry was done and that revealed an abnormal cell population. She was tested for HIV1 and 2 and was nonreactive. She was also found to have hypoalbuminemia. Urine protein was 1+ in the range of 30 mg/dL on urine testing. A 24-hour urine total protein was 133 mg. Serum albumin was 2.5, subsequent values were 2.7 and 3.0, possibly there was some trend of recovery of the albumin value. She underwent ultrasound of the liver portal vein which was negative. She had underwent a liver elastography which also gave a measurement within normal limits suggesting low likelihood of hepatic fibrosis. CT scan did show hepatic steatosis. She was evaluated by Dr. Delgado and tested for protein-losing enteropathy which and they are all pending at the time of this dictation. The patient received a 4-day course of dexamethasone 40 mg daily. She received a platelets transfusion as well. Platelets did not go up at all after the platelets transfusion. The dexamethasone infusion had a very mild effect on her platelet count. The highest platelet count during this hospital stay was 30 ,000, it fell again to 20,000. On 03/19/19, she started treatment with immunoglobulin G 500 mg/kg daily for 2 days. This has been completed on the day of discharge. Before the second immunoglobulin infusion, her platelet count was 25,000. Her hemoglobin on the day of discharge was 11.7, white count 6.3. The patient went into atrial fibrillation and was cardioverted. She went back into atrial fibrillation after about 12 hours and had a second cardioversion which seems to be persisting in normal sinus rhythm up to the time of discharge. She was maintained on her usual dose of sotalol throughout her hospital stay. Dr. Pedro followed her in consultation and did not recommend any changes at this time. The patient will have a CBC as an outpatient in 2 days. As mentioned above, tests for protein-losing enteropathy are pending. She will follow up with [facility], Dr. Delgado, Dr. Henderson, and Dr. Ennis. DISCHARGE DIAGNOSES: 1. Thrombocytopenia. 2. Atrial fibrillation. 3. Marfan syndrome. 4. Hypoalbuminemia and edema. 5. Low B12 level but normal methylmalonic acid level. 6. Migraine a[place]. DISCHARGE MEDICATIONS: 1. Vitamin B12 1000 mcg daily. 2. Potassium chloride 10 mEq b.i.d. 3. Magnesium oxide 400 mg b.i.d. 4. Sotalol 60 mg b.i.d. 5. Irbesartan 37.5 mg b.i.d. 6. Levothyroxine 100 mcg daily. 7. Alendronate 70 mg every 7 days. The patient had been on rivaroxaban but this is on hold until her platelet count exceeds 50,000. CONDITION ON DISCHARGE: Stable. DISPOSITION ON DISCHARGE: Discharged home. [id number]/[facility] #: [id number] MTDD
[2019-03-21 15:00] LABS: FMDS Result Summary Normal; FMDS Source Left PIC
--- NOTE | 2019-03-23 09:49 | PROCNOTE ---
Cardiology Procedure Note Procedure Note Patient: NICKY MOORE /Age: 10 1955 63 Medical Record#: [id number] Admission Date: 03/13/19 Provider: Viktor Pedro DO Cardiology Procedure Note Late entry for 03/18/2019 External electrical cardioversion Risks, benefits and alternatives discussed and patient wished to proceed Atrial fibrillation < 24 hours so BUDDY not performed IV versed and IV fentanyl used for conscious sedation Patient cardioverted from atrial fibrillation to sinus rhythm with 120J external electrical sync x 1 No complications
== END 2019-03-20 14:48 | disposition home or self-care (01) | DRG 661 ==
LOC: ED 20:13 → MED 03-13 01:00 → MEDTELE 03-17 17:03
PROVIDERS: ADMIT Internal Medicine; ATTEND Internal Medicine
PROC: 30233R1 Transfusion of Nonautologous Platelets into Peripheral Vein, Percutaneous Approach (ICD-10-PCS; principal; 2019-03-13)
PROC: 07DR3ZX Extraction of Iliac Bone Marrow, Percutaneous Approach, Diagnostic (ICD-10-PCS; 2019-03-15)
PROC: 5A2204Z Restoration of Cardiac Rhythm, Single (ICD-10-PCS; 2019-03-17)
DX: D69.3 Immune thrombocytopenic purpura (principal); Q87.40 Marfan syndrome, unspecified; R04.0 Epistaxis; E88.09 Other disorders of plasma-protein metabolism, not elsewhere classified; K76.0 Fatty (change of) liver, not elsewhere classified; G43.109 Migraine with aura, not intractable, without status migrainosus; E53.8 Deficiency of other specified B group vitamins; H02.402 Unspecified ptosis of left eyelid; M79.89 Other specified soft tissue disorders; I10 Essential (primary) hypertension; I34.1 Nonrheumatic mitral (valve) prolapse; R68.81 Early satiety; R58 Hemorrhage, not elsewhere classified; K57.90 Diverticulosis of intestine, part unspecified, without perforation or abscess without bleeding; K44.9 Diaphragmatic hernia without obstruction or gangrene; I34.0 Nonrheumatic mitral (valve) insufficiency; I48.0 Paroxysmal atrial fibrillation; I77.810 Thoracic aortic ectasia; M85.80 Other specified disorders of bone density and structure, unspecified site; E03.9 Hypothyroidism, unspecified; Z88.2 Allergy status to sulfonamides; Z91.048 Other nonmedicinal substance allergy status; Z82.49 Family history of ischemic heart disease and other diseases of the circulatory system; Z82.3 Family history of stroke; Z86.73 Personal history of transient ischemic attack (TIA), and cerebral infarction without residual deficits; Z98.42 Cataract extraction status, left eye; Z98.41 Cataract extraction status, right eye; R00.1 Bradycardia, unspecified; R14.0 Abdominal distension (gaseous); M25.511 Pain in right shoulder
CPT/HCPCS: 36415; 38222; 70450; 71045; 76981; 80048; 80053; 80076; 81003; 81015; 82040; 82103; 82390; 82465; 82533; 82553; 82570; 82575; 82607; 82728; 82746; 82784; 82977; 83010; 83516; 83540; 83550; 83605; 83615; 83735; 83880; 83915; 83921; 84100; 84156; 84439; 84443; 84484; 85025; 85045; 85060; 85097; 85384; 85610; 85730; 86038; 86140; 86703; 86803; 86850; 86900; 86901; 87086; 88184; 88187; 88188; 88189; 88271; 88305; 88311; 88313; 92960; 93005; 93306; 93975; 99156; 99157; 99223; 99231; 99232; 99284; A9270-GY; J1459; J2250; J2310; J3010; J8540; P9035

== ENCOUNTER 2019-03-29 15:28 | Inpatient (IN) | payer BC ==
[2019-03-29] MEDS ORDERED: NS 0.9% 1000 ML** 1,000 ML IV ONE (15:39)
--- NOTE | 2019-03-29 15:52 | ED ---
Complex/Multi-Sys Presentation - HPI Summary HPI Summary: Pt is a 63 y/o female brought in by EMS who presents to the ED c/o shoulder pain. 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 Pt has been having right shoulder pain for the past week and was started on Prednisone. She had an XR done by Dr. Coyle yesterday, and the pain is believed to be musculoskeletal. The pain is made worse with walking and is currently rated a 4/10 in severity. She denies any shoulder injury. Pt was walking while at work around 14:15 today and felt increased right shoulder pain , racing palpitations, lightheadedness, dizziness, and mild diaphoresis. She denies any CP, SOB, fever, abdominal pain, N/V, or calf pain. Pt is in rapid AFib while in the room, and her last episode of AFib was 1 week ago. She had a cardioversion 2 weeks ago. Pt is unsure how long she has been in this current AFib episode. She notes that she sometimes gets referred pain from her AFib. She denies the use of blood thinners. PMHx Marfan syndrome, scoliosis. She is prescribed Sotalol, potassium, and magnesium. - History Of Current Complaint Time Seen by Provider: 03/29/19 15:36 Hx Obtained From: Patient Onset/Duration: Gradual Onset, Still Present Timing: Constant Severity Initially: Moderate - 4/10 Location: Pain At: - right shoulder Aggravating Factor(s): Walking Alleviating Factor(s): Nothing Associated Signs And Symptoms: Positive: Dizziness, Diaphoresis. Negative: SOB , Chest Pain, Nausea, Vomiting, Abdominal Pain, Fever - Allergies/Home Medications Allergies/Adverse Reactions: Allergies Allergy/AdvReac Type Severity Reaction Status Date / Time Sulfa (Sulfonamide Allergy Intermediate Rash Verified 03/12/19 20:18 Antibiotics) nickel Allergy Rash Verified 03/12/19 20:18 PMH/Surg Hx/FS Hx/Imm Hx Endocrine/Hematology History: Reports: Hx Blood Disorders - ITP, Hx Thyroid Disease, Other Endocrine/Hematological Disorders - HX LYMES DISEASE 2012 Denies: Hx Diabetes Cardiovascular History: Reports: Hx Angina, Hx Atrial Fibrillation, Hx Hypertension, 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, Other Cardiovascular Problems/Disorders - TIA Denies: Hx Hypercholesterolemia, Hx Pacemaker/ICD, Hx Peripheral Vascular Disease Respiratory History: Denies: Hx Asthma, Hx Chronic Obstructive Pulmonary Disease (COPD) History: Denies: Hx Chronic Renal Failure, Hx Dialysis, Hx Renal Disease Musculoskeletal History: Reports: Hx Scoliosis, Other Musculoskeletal History - MARFAN'S SYNDROME (CONTECTIVE TISSUE DISORDER) Denies: Hx Arthritis, Hx Rheumatoid Arthritis, Hx Osteoporosis Sensory History: Reports: Hx Cataracts - hx of cataract surgery Denies: Hx Contacts or Glasses, Hx Hearing Aid Opthamlomology History: Reports: Hx Cataracts - hx of cataract surgery Denies: Hx Contacts or Glasses Neurological History: Denies: Hx Headaches, Hx Seizures, Hx Transient Ischemic Attacks (TIA) Psychiatric History: Denies: Hx Anxiety, Hx Panic Disorder - Cancer History Hx Chemotherapy: No Hx Radiation Therapy: No - Surgical History Surgery Procedure, Year, and Place: BL CATARACT SURGERY, 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 cardioversion - Immunization History Date of Tetanus Vaccine: "I think so" when asked if up to date Date of Influenza Vaccine: 2016 Infectious Disease History: No Infectious Disease History: Reports: Hx Shingles - NOT CURRENT Denies: Traveled Outside the [place] in Last 30 Days - Family History Known Family History: Positive: Cardiac Disease - father of [place], Other - Marfan syndrome - Social History Alcohol Use: Rare Alcohol Amount: GLASS OF WINE W/DINNER Hx Substance Use: No Substance Use Type: Reports: None Hx Tobacco Use: No Smoking Status (MU): Never Smoked Tobacco Review of Systems Positive: Skin Diaphoresis. Negative: Fever Positive: Palpitations - racing. Negative: Chest Pain Negative: Shortness Of Breath Negative: Abdominal Pain, Vomiting, Nausea Positive: Arthralgia - R shoulder. Negative: Myalgia - calf Neurological: Other - Dizziness, lightheadedness All Other Systems Reviewed And Are Negative: Yes Physical Exam - Summary Physical Exam Summary: Appearance: well appearing, no pain distress Skin: warm, dry, reflects adequate perfusion, bruising on RUE Head/face: normal Eyes: EOMI, ROSANA ENT: mucous membranes moist Neck: supple, non-tender Respiratory: CTA, breath sounds present, tachypneic Cardiovascular: tachycardic with irregularly irregular rhythm, pulses symmetrical Abdomen: non-tender, soft Bowel Sounds: present Musculoskeletal: strength/ROM intact, scoliosis, tenderness of right shoulder Neuro: normal, sensory motor intact, A&Ox3 Triage Information Reviewed: Yes Vital Signs On Initial Exam: Initial Vitals Temp Pulse Resp BP Pulse Ox 97.1 F 135 36 129/77 99 03/29/19 15:38 03/29/19 15:38 03/29/19 15:38 03/29/19 15:38 03/29/19 15:38 Vital Signs Reviewed: Yes Diagnostics - Vital Signs Vital Signs Temp Pulse Resp BP Pulse Ox 03/29/19 15:38 97.1 F 135 36 129/77 99 - Laboratory Result Diagrams: 03/29/19 15:40 03/29/19 15:40 Lab Statement: Any lab studies that have been ordered have been reviewed, and results considered in the medical decision making process. - Radiology CXR Radiology Interpretation Completed By: Radiologist Summary of Radiographic Findings: 1. FINDINGS CONSISTENT WITH COPD AND OLD GRANULOMATOUS DISEASE, NO EVIDENCE FOR ACUTE FINDING. 2. MILD CARDIOMEGALY. 3. HIATAL HERNIA. ED physician reviewed radiology report. - CT Chest/Abdomen/Pelvis CT CT Interpretation Completed By: Radiologist Summary of CT Findings: No evidence for superficial or deep soft tissue plane hematoma. Small dependent RIGHT pleural effusion. Cardiomegaly. Ectatic thoracic aorta without significant change. No superficial soft tissue plane or retroperitoneal hematoma. Moderate colonic diverticulosis without findings of acute diverticulitis. Negative for lymphadenopathy or organomegaly. Mild hepatosteatosis. Negative for ascites. Fibroid uterus. 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 ED physician reviewed radiology report. - EKG 15:50 Cardiac Rate: Other Rate - Rapid Afib - 132 bpm EKG Rhythm: Atrial Fibrillation ST Segment: Non-Specific Summary of EKG Findings: Nl axis Complex Multi-Symp Course/Dx Course Of Treatment: Patient was seen in conjunction with the physician medical practice assistant student. The history, physical exam and medical decision-making represent my work. Patient has history of ITP just starting chemotherapy for it. She also has a history of intermittent atrial fibrillation. She cannot give a good time for onset of the A. fib today. She is not on anticoagulation due to the low platelets. Her heart rate was initially controlled with diltiazem bolus but rebounded and and a diltiazem drip had to be started. She continued to be in atrial fibrillation. A CT scan was obtained of the chest abdomen and pelvis due to significant posterior right shoulder pain. There is muscular tenderness in the area but I was concerned to rule out retroperitoneal hemorrhage or referred pain of other types. This was negative. I discussed case with the hospitalist will admit for her rapid A. fib. Her right shoulder pain is somewhat better with topical lidocaine patch. - Diagnoses Differential Diagnoses/HQI/PQRI: Metabolic Abnormality, Urinary Tract Infection , Other - Retroperitoneal hemorrhage, pneumonia, gallbladder disease, liver hemorrhage Provider Diagnoses: Rapid atrial fibrillation, Idiopathic thrombocytopenia, Lightheadedness - Physician Notifications Discussed Care Of Patient With: Berna Madison Time Discussed With Above Provider: 17:50 Instructed by Provider To: Admit As Inpatient - Critical Care Time Critical Care Time: 30-74 min - Critical care time is exclusive of separately billable procedures Discharge - Sign-Out/Discharge Documenting (check all that apply): Patient Departure - Admit Patient Received Moderate/Deep Sedation with Procedure: No - Discharge Plan Condition: Stable Disposition: ADMITTED TO [facility] Referrals: Zulay Kraus MD [Medical Doctor] - - Billing Disposition and Condition Condition: STABLE Disposition: Admitted to [facility] - Attestation Statements Document Initiated by Scribe: Yes Documenting Scribe: Donna Calloway Provider For Whom Scribe is Documenting (Include Credential): Sheldon Augustin MD Scribe Attestation: I, Donna Calloway, scribed for Sheldon Augustin MD on 03/29/19 at 1903. Scribe Documentation Reviewed: Yes Provider Attestation: The documentation as recorded by the Donna fajardo accurately reflects the service I personally performed and the decisions made by me, Sheldon Augustin MD Status of Scribe Document: Viewed
[2019-03-29] MEDS ORDERED: Diltiazem IV VIAL* 125 MG in NS 0.9% 100 ML* 100 ML IVPB ONE (16:00)
[2019-03-29] MEDS ORDERED: Diltiazem IV push/loading dose 5 MG/ML 5 ML vial (25 mg) IV SLOW PU ONE (16:00)
[2019-03-29] MEDS ORDERED: Lidocaine PATCH 5%* 1 PATCH TRANSDERM ONE (16:21)
[2019-03-29 16:25] LABS: ABS Basophils 0 10^3/ul (0-0.2); ABS Eosinophils 0 10^3/ul (0-0.6); ABS Lymphocytes 0.7 10^3/ul (1.0-4.8); ABS Monocytes 0.5 10^3/ul (0-0.8); ABS Neutrophils 10.5 10^3/ul (1.5-7.7); ABS Nucleated RBC 0 10^3/ul; Eosinophil % 0.1 %; Hematocrit 42 % (33-41); Hemoglobin 13.6 g/dL (12.0-16.0); Lymphocyte % 6.1 %; Mean Corpuscular HGB Conc 33 g/dL (31-36); Mean Corpuscular Hemoglobin 29 pg (27-31); Mean Corpuscular Volume 89 fL (80-97); Mean Platelet Volume 11.7 fL (7.4-10.4); Nucleated Red Blood Cells % 0; Platelet Count 38 10^3/uL (150-450); Red Blood Count 4.68 10^6 /uL (3.70-4.87); Red Cell Distribution Width 16 % (10.5-15); White Blood Count 11.7 10^3/uL (3.5-10.8)
[2019-03-29 16:27] LABS: Albumin/Globulin Ratio 1.1 (1-3); BUN/Creatinine Ratio 26.9 (8-20); Calcium 9.2 mg/dL (8.6-10.3); EGFR African American 90.6 (>60); EGFR Non-African American 74.8 (>60); Globulin 3.5 g/dL (2-4); Potassium 4.5 mmol/L (3.5-5.0); Total Bilirubin 0.7 mg/dL (0.2-1.0); Total Protein 7.5 g/dL (6.4-8.9)
[2019-03-29 16:29] LABS: Troponin I 0.01 ng/mL (<0.04)
[2019-03-29] MEDS ORDERED: Iohexol 300* (CONTRAST) 10 ML SDV IV ONE (16:42)
--- OUTSIDE RECORDS SUMMARY | 2019-03-29 16:51 | XMS REPORT | Continuity of Care Document ---
:1955 External Reference #:[id number] Author Name Karol Waldron Care Team Providers Name Role Phone Zulay Kraus MD Primary Care Physician Unavailable Payers Date Identification Numbers Payment Provider Subscriber Policy Number: [id number] [facility] Carrie Moore PayID: [id number] [address] [place] [address] Advance Directives Description No Information Available Problems Active Problems Provider Date Marfan's syndrome Fern Jean M.D., MIA Onset: 03/17/2011 Hypothyroidism Fern Jean M.D., MIA Onset: 03/17/2011 Mitral valve disorder Meir Bone M.D., [facility], [facility] Onset: 09/13/2014 Note: mitral valave insufficiency Osteoporosis Zulay Kraus M.D. Onset: 11/07/2014 Scoliosis deformity of spine Zulay Kraus M.D. Onset: 11/07/2014 Tendinosis Zulay Kraus M.D. Onset: 02/19/2015 Note: rotatot cuff with AC joint OA Thoracic aortic ectasia Meir Bone M.D., [facility], [facility] Onset: 10/10/2015 Arachnoid cyst Zulay Kraus M.D. Onset: 10/23/2015 Note: L anterior fossa Disturbance in sleep behavior Yudi Louie MD Onset: 12/18/2015 Paroxysmal atrial fibrillation Meir Bone M.D., [facility], [facility] Onset: 2015 Inactive Problems Osteochondropathy Fern Jean M.D., FACP Onset: 03/17/2011 Inactive: 11/07/2014 Pure hypercholesterolemia Fern Jean M.D., FACP Onset: 03/17/2011 Inactive: 11/07/2014 Family History Date Family Member(s) Observation Comments General Heart Disease : (age 43 Years) Father due to MD Father due to Marfan's () Mother due to Stroke () : (age 42 Years) First Brother due to Accident First Sister 67 First Sister Chronic Obstructive Pulmonary Disease (COPD) Social History Type Date Description Comments Sex Unknown Marital Status Single Lives With Male 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 Lasix 1 by mouth every 5tabs Zulayvalarie Kraus, 02/18/2019 20mg Tablets other day M.D. Alendronate Sodium take 1 tablet by 12tabs M81.0 Zulayvalarie Kraus, 2017 70mg mouth weekly M.D. Tablets Automatic Blood 1 adult large 1units Maria C Mcfadden, 11/11/2018 Pressure Monitor cuff and unit N.P. Kit for upper arm utd twice a day . please log results . call providor when systolic reading is below 100 or above 1 Magnesium Oxide -MG 1 tab by mouth 60caps I48.0 Maria C Mcfadden, 11/09/2018 Supplement twice daily N.P. 400mg Capsules Sotalol HCL (AF) 1/2 tab by mouth 90tabs Arlen Henderson, 09/15/2018 120mg twice a day M.D. Tablets Levothyroxine Sodium Take 1 Tablet By 90tabs E03.9 Zulayvalarie Kraus, 2016 Mouth Daily M.D. 100mcg Tablets Calcium 600 + D 1 tab bid Zulay Kraus, 02/05/2016 M.D. [id number] Tablets Potassium Chloride ER 2 tabs by mouth 360caps Arlen Henderson, 10/23/2015 bid M.D. 10Meq Capsules ER Xarelto 1 by mouth every 90tabs Arlen Henderson, 10/04/2014 20mg Tablets day M.D. Selenium 1 po qd Unknown Tablets Flaxseed Oil 1 po weekly Unknown Capsules Vit C, E, once a day Unknown History Medications Irbesartan take 1 tab bid 14tabs Q87.410 Maria C SJan 10/01/2018 - 75mg Tablets Bogdan, N.P. 03/10/2019 Losartan Potassium 1/2 by mouth 90tabs Maria C SJan 09/14/2018 - 25mg every day Bogdan, N.P. 09/14/2018 Tablets Sotalol HCL (AF) 1/2 tab by mouth 90tabs Arlen Henderson, 08/19/2018 - 80mg twice a day M.D. 09/15/2018 Tablets Cyclobenzaprine HCL take 1 tablet 30tabs S13.8xxA Zulay 08/05/2018 - 5mg every 8 hrs Brittney Kraus 08/26/2018 Tablets Baclofen take 1/2 tab 20tabs M25.511 Henry Molina NP 07/29/2018 - 10mg Tablets every 8 hours as 08/05/2018 needed for muscle spasm Tramadol HCL 1 tablet every 12 10tabs M25.511 Henry Molina NP 07/29/2018 - 50mg hours as needed 08/03/2018 Tablets for pain. Zostavax sc x1 1units Zulay 10/20/2017 - Brittney Kraus 01/18/2018 [id number]/0.65ML Suspension Rec Calcium 600 1 by mouth every Zulay 02/05/2016 - 600mg day Brittney Kraus 02/05/2016 Tablets Magnesium 1 by mouth twice Zulay 10/23/2015 - 250mg Tablets daily Brittney Kraus 11/09/2018 Oxycodone HCL 1/2 to tab for 30tabs B34.9 Zulay 10/22/2015 - 5mg pain every 8 Brittney Kraus Unknown Tablets hours as needed Potassium Chloride ER 2 tab daily Unknown 10/18/2015 - 10/23/2015 20Meq Tablets ER Malarone one by mouth 30tabs Francia Lancaster, 06/13/2015 - 250-100mg daily starting 1 N.P. 07/13/2015 Tablets - 2 days before arriving and continue for 7 days after leaving destination Potassium Chloride ER 1 tab by mouth 180tabs Zulay 04/03/2015 - twice a day Brittney Kraus 10/22/2015 10Meq Tablets ER Metoprolol Succinate 1.5 tablets by 135tabs Meir Bone, 12/14/2014 - ER mouth daily M.DJan, [facility], 08/26/2018 25mg Tablets ER [facility] Alendronate Sodium take 1 tablet by 12tabs M81.0 Zulay 11/07/2014 - 70mg mouth weekly ( Brittney Kraus 10/30/2017 Tablets Stop taking recently been off for 1 week) Levothyroxine Sodium take 1 tablet by 30tabs E03.9 Henry Molina NP 2013 - mouth once daily 10/20/2017 88mcg Tablets Potassium 1 tab by mouth 60tabs Other Ordering 10/04/2014 - 10Meq Tablets twice a day Provider 04/03/2015 Levothyroxine Sodium 1 by mouth every Other Ordering 10/03/2014 - day Provider 10/17/2014 88mcg Tablets Doxycycline Hyclate 1 by mouth twice 2caps 088.81 Fern Jean, 03/21/2014 - a day M.D., FACP 09/12/[address] Singh Doxycycline Hyclate 1 by mouth twice 20caps 088.81 Fern Jean, 2012 - a day M.D., FACP 06/23/[address] Singh Citalopram take 1 tablet 90tabs 300.00 Fern Jean, 06/15/2012 - Hydrobromide daily [facility] 09/12/2014 10mg Tablets Clonazepam take 1 tablet 60tabs 300.00 Fern Jean, 06/15/2012 - 0.5mg twice daily as M.D., [facility] 09/12/2014 Tablets needed Levothyroxine Sodium take 1 tablet by 90tabs Francia Hanksn, 10/06/2011 - mouth once daily N.P. 10/03/2014 50mcg Tablets Nasonex 2 sprays to each 1units 477.9 Fern Jean, 06/10/2011 - 50mcg/Act nostril once M.D., [facility] 09/01/2012 Suspension daily Baby Aspirin 1 tablet by 100units Fern Jean, 03/19/2011 - 81mg mouth when M.D., [facility] 12/25/2015 Chewtabs traveling Malarone take 1 daily 2d 27tabs Fern Jean, 10/21/2010 - 250-100mg prior to leaving M.D., [facility] 03/19/2011 Tablets and 7d upon return home Propranolol HCL take 1 tablet by 180tabs Fern Miranda, 07/16/2010 - 40mg mouth twice a day M.D., [facility] 10/04/2014 Tablets Evista take 1 tablet by 90tabs [facility] 07/16/2010 - 60mg Tablets mouth once daily Brittney Ennis 11/07/2014 Synthroid 1 in the am 90tabs Fernprosper Jean, 07/16/2010 - 50mcg Tablets M.D., [facility] 10/06/2011 Ambien 1 tablet by mouth 20tabs [facility] 07/16/2010 - 5mg Tablets at bedtime as Brittney Ennis Unknown needed for sleep insomnia Prednisone 1 po qd 10tabs Fern Jean, 06/25/2010 - 10mg Tablets M.D., [facility] 03/19/2011 Malarone po qd 1 day prior 22tabs Unknown - 250-100mg to travel through 03/21/2014 Tablets 7 days after Calcium & Magnesium 1 po qd Unknown - 02/05/2016 Tablets Levothyroxine Sodium take 1 tablet by Unknown - mouth once daily 10/17/2014 75mcg Tablets Metoprolol Tartrate take 1 tablet by Unknown - mouth twice a day 12/14/2014 25mg Tablets Digitek Take 1 Tablet By Unknown - 250mcg Tablets Mouth Daily AT 12/25/2015 5PM Amoxicillin/Clavulana take 1 tablet by Unknown - te Potassium mouth twice a day 11/16/2016 875-125mg Tablets Multaq take 1 tablet by 180tabs Meir Bone, - 400mg Tablets mouth twice a day Brittney [facility], 08/19/2018 [facility] Tramadol HCL take 1 tablet by Unknown - 50mg mouth every 12 08/26/2018 Tablets hours if needed for pain Medications Administered in Office Medication SIG Qnty Indications Ordering Provider Date Shingrix pharmacy administered Unknown 01/11/2019 Injection Inj, Regadenoson, 0.1 MG Edson Smith M.D. 07/22/2013 Injection Technetium TC 99M Tetrofosmin, Edson Smith M.D. 07/22/2013 Per Unit Dose Up To 40 Millicuries Injection Immunizations CPT Code Status Date Vaccine Lot # [id number] Given 10/09/2018 Influenza Virus Vaccine, Quadrivalent, Split, Preservative Free 72625 Given 07/19/2018 Zoster (Shingles) Vaccine (HZV), Recombinant, Subunit, Adjuvanted 49150 Given 07/19/2018 Zoster (Shingles) Vaccine (HZV), Recombinant, Subunit, Adjuvanted 17494 Given 10/20/2017 Influenza Virus Vaccine, Quadrivalent, Split, [id number] Preservative Free 29749 Given 11/26/2016 Influ Virus Vaccine, Quadrivalent, Split Virus, [place] [address] Given 2015 Influenza Virus Vaccine, Quadrivalent, Split, Preservative Free 35482 Given 10/17/2014 Tdap - Tetanus/Diptheria/Acellular Pertussis [id number] 19416 Given 10/17/2014 Flu Vaccine Split Virus Preservative Free For [id number] Indiv 3Yr Older 57016 Given 09/05/2013 Flu Vaccine Split Virus Preservative Free For [id number] Indiv 3Yr Older [id number] Given 09/01/2012 Fluzone Vaccine [id number] 74642 Given 01/30/2010 Influenza Virus Vaccine, Pandemic Formulation 97745 Given 01/30/2010 Administration Swine Flu Shot 25627 Given 01/05/2009 Influenza Virus 3Yrs & Over 07331 Given 11/24/2006 Influenza Virus 3Yrs & Over 91794 Given 11/24/2006 Influenza Virus 3Yrs & Over 85895 Given 2003 Td Toxoids Adsorbed For Use [...] Date Facility Test Result H/L Range Note CBC Auto Diff 03/24/2019 [facility] White Blood 15.9 10^3/uL High 3.5-10.[address] [place] [address] [phone] Red Blood Count 4.26 10^6/uL N 3.70-4.87 Hemoglobin 12.5 g/dL N 12.0-16.0 Hematocrit 39 % N 33-41 Mean Corpuscular Volume 91 fL N 80-97 Mean Corpuscular Hemoglobin 29 pg N 27-31 Mean Corpuscular HGB Conc 32 g/dL N 31-36 Red Cell Distribution Width 17 % High 10.5-15 Platelet Count 7 10^3/uL Low 150-450 1 Mean Platelet Volume 10.2 fL N 7.4-10.4 Abs Neutrophils 13.1 10^3/uL High 1.5-7.7 Abs Lymphocytes 0.9 10^3/uL Low 1.0-4.8 Abs Monocytes 1.7 10^3/uL High 0-0.8 2 Abs Eosinophils 0.1 10^3/uL N 0-0.6 Abs Basophils 0 10^3/uL N 0-0.2 Abs Nucleated RBC 0 10^3/uL Granulocyte % 82.7 % Lymphocyte % 5.9 % Monocyte % 10.7 % Eosinophil % 0.4 % Basophil % 0.3 % Nucleated Red Blood Cells % 0 CBC Auto 03/22/2019 [facility] White Blood 11.1 10^3/uL High 3.5-10.[address] [place] [address] [phone] Red Blood Count 4.25 10^6/uL N 3.70-4.87 Hemoglobin 12.5 g/dL N 12.0-16.0 Hematocrit 38 % N 33-41 Mean Corpuscular Volume 90 fL N 80-97 Mean Corpuscular Hemoglobin 29 pg N 27-31 Mean Corpuscular HGB Conc 33 g/dL N 31-36 Red Cell Distribution Width 16 % High 10.5-15 Platelet Count 7 10^3/uL Low 150-450 3 Mean Platelet Volume 11.3 fL High 7.4-10.4 Abs Neutrophils 7.4 10^3/uL N 1.5-7.7 Abs Lymphocytes 1.2 10^3/uL N 1.0-4.8 Abs Monocytes 2.3 10^3/uL High 0-0.8 Abs Eosinophils 0.2 10^3/uL N 0-0.6 Abs Basophils 0 10^3/uL N 0-0.2 Abs Nucleated RBC 0 10^3/uL Granulocyte % 67.1 % Lymphocyte % 10.5 % Monocyte % 20.7 % Eosinophil % 1.5 % Basophil % 0.2 % Nucleated Red Blood Cells % 0 Inr/Protime 03/13/2019 [facility] Inr 1.32 High 0.77-1.[address] [place] [address] [phone] Laboratory test 03/13/2019 [facility] Partial 32.3 N 26.0- 36.[address] [address] PTT [phone] Laboratory test 03/12/2019 [facility] Pathologist (SEE NOTE) [address] [place] [address] [phone] CBC Auto Diff 03/12/2019 [facility] White Blood 10.2 N 3.5- 10.[address] Count 10^3/uL [place], [place] [id number] [phone] Red Blood Count 5.23 10^6/uL High 3.70-4.87 Hemoglobin 15.3 g/dL N 12.0-16.0 Hematocrit 46 % High 33-41 Mean Corpuscular Volume 88 fL N 80-97 Mean Corpuscular Hemoglobin 29 pg N 27-31 Mean Corpuscular HGB Conc 33 g/dL N 31-36 Red Cell Distribution Width 16 % High 10.5-15 Platelet Count 4 10^3/uL Low 150-450 5 Mean Platelet Volume 10.6 fL High 7.4-10.4 Abs Neutrophils 6.4 10^3/uL N 1.5-7.7 Abs Lymphocytes 1.7 10^3/uL N 1.0-4.8 Abs Monocytes 1.7 10^3/uL High 0-0.8 Abs Eosinophils 0.2 10^3/uL N 0-0.6 Abs Basophils 0.1 10^3/uL N 0-0.2 Abs Nucleated RBC 0.1 10^3/uL Granulocyte % 62.5 % Lymphocyte % 16.7 % Monocyte % 17.0 % Eosinophil % 2.4 % Basophil % 1.4 % Nucleated Red Blood Cells % 0.4 CKMB 03/12/2019 [facility] CKMB ng/mL 2.0 ng/mL N 0.6-6.[address] [place] [address] [phone] Laboratory test 03/12/2019 [facility] Troponin-I 0.03 ng/mL < 0.04 6 finding 101 (TnI) [place] [address] [phone] B-Type Natriuretic Peptide BNP 29 pg/mL <=100 Lactic Acid 1.2 mmol/L N 0.5-2.0 7 Comp Metabolic Panel 03/12/2019 [facility] Sodium 130 mmol/L Low 135-[address] [place] [address] [phone] Potassium 5.0 mmol/L N 3.5-5.0 Chloride 104 mmol/L N 101-111 Co2 Carbon Dioxide 23 mmol/L N 22-32 Anion Gap 3 mmol/L N 2-11 Glucose 119 mg/dL High 70-100 Blood Urea Nitrogen 16 mg/dL N 6-24 Creatinine 0.72 mg/dL N 0.51-0.95 BUN/Creatinine Ratio 22.2 High 8-20 Calcium 7.9 mg/dL Low 8.6-10.3 Total Protein 4.9 g/dL Low 6.4-8.9 Albumin 2.5 g/dL Low 3.2-5.2 Globulin 2.4 g/dL N 2-4 Albumin/Globulin Ratio 1.0 N 1-3 Total Bilirubin 1.00 mg/dL N 0.2-1.0 Alkaline Phosphatase 29 U/L Low 34-104 Alt 8 U/L N 7-52 Ast 13 U/L N 13-39 Egfr Non- 82.1 >60 Egfr 99.3 >60 8 Laboratory test 03/12/2019 [facility] Folic Acid 9.33 ng/mL > 3.99 finding 101 (Folate) [place] [address] [phone] Vitamin B12 107 pg/mL Low 180-914 9 Retic Count 03/12/2019 [facility] Maturation Factor Retic 1.0 [address] [place] [address] [phone] RBC Retic Count 5.32 10^6/uL High 3.70-4.87 Hematocrit for Retic CNT 47 % High 33-41 Retic Count 2.5 % High 0.5-1.5 Corrected Retic Count 2.6 % High 0.5-1.5 Retic Index 2.60 Mean Retic Volume 118.2 Immature Retic Fraction 0.50 CBC Auto 03/12/2019 [facility] White Blood 11.0 10^3/uL High 3.5-10.[address] [place] [address] [phone] Red Blood Count 5.32 10^6/uL High 3.70-4.87 Hemoglobin 15.8 g/dL N 12.0-16.0 Hematocrit 47 % High 33-41 Mean Corpuscular Volume 89 fL N 80-97 Mean Corpuscular Hemoglobin 30 pg N 27-31 Mean Corpuscular HGB Conc 33 g/dL N 31-36 Red Cell Distribution Width 15 % N 10.5-15 Platelet Count 4 10^3/uL Low 150-450 10 Mean Platelet Volume 9.6 fL N 7.4-10.4 Abs Neutrophils 7.0 10^3/uL N 1.5-7.7 Abs Lymphocytes 1.7 10^3/uL N 1.0-4.8 Abs Monocytes 1.8 10^3/uL High 0-0.8 Abs Eosinophils 0.3 10^3/uL N 0-0.6 Abs Basophils 0.2 10^3/uL N 0-0.2 Abs Nucleated RBC 0 10^3/uL Granulocyte % 63.2 % Lymphocyte % 15.6 % Monocyte % 16.8 % Eosinophil % 2.6 % Basophil % 1.8 % Nucleated Red Blood Cells % 0.2 Type & Screen 03/12/2019 [facility] Patient Blood [place] [address] [phone] Antibody Screen NEGATIVE Laboratory test finding 03/12/2019 [facility] LDH 185 U/L N 140-271 [address] [place] [address] [phone] C Reactive Protein 3.35 mg/L N <8.01 Laboratory test 03/01/2019 [facility] TSH (Thyroid 5.64 High 0.34-5.[address] Stim Horm) mcIU/[place] [address] [phone] T3 Free 2.80 pg/mL N 2.5-3.9 Free T4 (Free Thyroxine) 0.82 ng/dL N 0.61-1.12 Basic Metabolic Panel 03/01/2019 [facility] Sodium 135 mmol/L N 135-[address] [place] [address] [phone] Potassium 4.6 mmol/L N 3.5-5.0 Chloride 105 mmol/L N 101-111 Co2 Carbon Dioxide 27 mmol/L N 22-32 Anion Gap 3 mmol/L N 2-11 Glucose 100 mg/dL N 70-100 Blood Urea Nitrogen 10 mg/dL N 6-24 Creatinine 0.62 mg/dL N 0.51-0.95 BUN/Creatinine Ratio 16.1 N 8-20 Calcium 8.1 mg/dL Low 8.6-10.3 Egfr Non- 97.5 >60 Egfr 118.0 >60 11 Comp Metabolic Panel 02/17/2019 [facility] Sodium 136 mmol/L N 135-145 [address] [place] [address] [phone] Potassium 4.7 mmol/L N 3.5-5.0 Chloride 103 [...] Egfr Non- 99.4 >60 Egfr 120.3 >60 12 Urinalysis Profile 02/17/2019 [facility] Urine Color Straw [address] [place] [address] [phone] Urine Appearance Clear Urine Specific [place] 1.009 Low 1.010-1.030 Urine pH 7.0 N 5-9 Urine Urobilinogen Negative Negative Urine Ketones Negative Negative Urine Protein Negative Negative Urine Leukocytes Negative Negative Urine Blood Negative Negative * * Abnormal Negative 13 Urine Nitrite Negative Negative Urine Bilirubin Negative Negative Urine Glucose Negative Negative Laboratory test 02/17/2019 [facility] TSH (Thyroid 8.89 High 0.34-5.60 finding 101 [facility] Stim Horm) mcIU/[place] [address] [phone] T3 Free 3.00 pg/mL N 2.5-3.9 Free T4 (Free Thyroxine) 1.12 ng/dL N 0.61-1.12 Laboratory test 12/30/2018 [facility] Magnesium 2.0 mg/dL N 1.9-2.7 finding [address] [place] [address] [phone] Basic Metabolic 12/30/2018 [facility] Sodium 137 mmol/L N 135- 145 Panel [address] [place] [address] [phone] Potassium 4.9 mmol/L N 3.5-5.0 Chloride 103 mmol/L N 101-111 Co2 Carbon Dioxide 31 mmol/L N 22-32 Anion Gap 3 mmol/L N 2-11 Glucose 85 mg/dL N 70-100 Blood Urea Nitrogen 16 mg/dL N 6-24 Creatinine 0.63 mg/dL N 0.51-0.95 BUN/Creatinine Ratio 25.4 High 8-20 Calcium 9.2 mg/dL N 8.6-10.3 Egfr Non- 95.8 >60 Egfr 115.9 >60 14 Laboratory test 12/14/2018 [facility] In House Hemosure Negative finding Non-Medicare Basic Metabolic 10/29/2018 [facility] Sodium 139 mmol/L N 135- 145 Panel [address] [place] [address] [phone] Potassium 3.9 mmol/L N 3.5-5.0 Chloride 104 mmol/L N 101-111 Co2 Carbon Dioxide 27 mmol/L N 22-32 Anion Gap 8 mmol/L N 2-11 Calcium 9.2 mg/dL N 8.6-10.3 Glucose 72 mg/dL N 70-100 Blood Urea Nitrogen 16 mg/dL N 6-24 Creatinine 0.72 mg/dL N 0.51-0.95 BUN/Creatinine Ratio 22.2 High 8-20 Egfr Non- 82.1 >60 Egfr 99.3 >60 15 Laboratory test 10/29/2018 [facility] Magnesium 1.8 mg/dL Low 1.9-2.7 16 finding [address] [place] [address] [phone] Basic Metabolic 10/13/2018 [facility] Sodium 138 mmol/L N 135- 145 Panel [address] [place] [address] [phone] Potassium 3.8 mmol/L N 3.5-5.0 Chloride 108 mmol/L N 101-111 Co2 Carbon Dioxide 26 mmol/L N 22-32 Anion Gap 4 mmol/L N 2-11 Glucose 93 mg/dL N 70-100 Blood Urea Nitrogen 14 mg/dL N 6-24 Creatinine 0.57 mg/dL N 0.51-0.95 BUN/Creatinine Ratio 24.6 High 8-20 Calcium 8.8 mg/dL N 8.6-10.3 Egfr Non- 107.5 >60 Egfr 130.0 >60 17 Laboratory test 10/13/2018 [facility] Magnesium 1.8 mg/dL Low 1.9-2.7 finding [address] [place] [address] [phone] Laboratory test 10/01/2018 [facility] Magnesium <pending> finding [address] [place] [address] [phone] CBC Auto Diff 08/18/2018 [facility] White Blood 5.9 N 3.5- 10.8 101 [facility] Count 10^3/[place] [address] [phone] Red Blood Count 4.83 10^6/uL N 4.00-5.40 [...] Red Blood Cells % 0.1 Inr/Protime 08/18/2018 [facility] Inr 2.23 High 0.77-1.[address] [place] [address] [phone] Laboratory test 08/18/2018 [facility] Partial 45.5 High 26.0- 36.[address] [place] [address] Time PTT [phone] D Dimer Quantitative < 200 ng/mL N Less Than 230 18 B-Type Natriuretic Peptide BNP 571 pg/mL High 19 Lactic Acid 0.8 mmol/L N 0.5-2.0 20 Comp Metabolic Panel 08/18/2018 [facility] Sodium 134 mmol/L Low 135-[address] [place] [address] [phone] Potassium 4.5 mmol/L N 3.5-5.0 Chloride 102 [...] Egfr Non- 59.8 >60 Egfr 72.4 >60 21 Laboratory test 08/18/2018 [facility] Magnesium 2.2 mg/dL N 1.9-2.7 finding [address] [place] [address] [phone] Creatine Kinase(CK) 44 U/L N 10-223 Troponin-I (TnI) 0.00 ng/mL <0.04 CKMB 08/18/2018 [facility] CKMB ng/mL 1.8 ng/mL N 0.6-6.[address] [place] [address] [phone] Laboratory test 08/18/2018 [facility] TSH (Thyroid 4.47 N 0.34 -5.60 finding 101 [facility] Stim Horm) mcIU/[place] [address] [phone] Laboratory test 08/09/2018 [facility] Magnesium 2.0 mg/dL N 1.9-2.[address] [place] [address] [phone] Comp Metabolic 08/09/2018 [facility] Sodium 137 mmol/L N 135- 145 Panel [address] [place] [address] [phone] Potassium 4.3 mmol/L N 3.5-5.0 Chloride 105 [...] Egfr Non- 44.8 >60 Egfr 54.2 >60 22 Laboratory test 08/09/2018 [facility] Lactic Acid 0.6 mmol/L N 0.5-2.0 [address] [place] [address] [phone] Troponin-I (TnI) 0.01 ng/mL <0.04 CBC Auto Diff 08/09/2018 [facility] White Blood 5.0 10^3/uL N 3.5-10.[address] [place] [address] [phone] Red Blood Count 4.44 10^6/uL N 4.00-5.40 [...] Blood Cells % 0.1 Laboratory test 08/09/2018 [facility] Troponin-I 0.00 ng/mL < 0.[address] (TnI) [place] [address] [phone] Laboratory test 02/04/2018 [facility] TSH (Thyroid 2.13 N 0.34 -5.[address] Stim Horm) mcIU/[place] [address] [phone] Free T4 (Free Thyroxine) 0.93 ng/dL N 0.61-1.12 T3 Free 3.10 pg/mL N 2.5-3.9 Laboratory test 01/08/2018 [facility] Troponin-I 0.00 ng/mL < 0.[address] (TnI) [place] [address] [phone] CBC Auto Diff 01/08/2018 [facility] White Blood 7.3 N 3.5- 10.[address] Count 10^3/[place] [address] [phone] Red Blood Count 4.72 10^6/uL N 4.0-5.4 [...] Red Blood Cells % 0 Inr/Protime 01/08/2018 [facility] Inr 2.10 High 0.77-1.[address] [place] [address] [phone] Laboratory test 01/08/2018 [facility] Partial 46.4 High 26.0- 36.[address] [place] [address] Time PTT [phone] Lactic Acid 0.9 mmol/L N 0.5-2.0 24 B-Type Natriuretic Peptide BNP 354 pg/mL High 25 Comp Metabolic Panel 01/08/2018 [facility] Sodium 133 mmol/L N 133-[address] [place], [place] [address] [phone] Potassium 4.2 mmol/L N 3.5-5.0 Chloride 101 [...] Egfr Non- 65.3 >60 Egfr 84.0 >60 26 Laboratory test 01/08/2018 [facility] Magnesium 1.9 mg/dL N 1.9-2.[address] [place] [address] [phone] Creatine Kinase(CK) 46 U/L N 10-223 Troponin-I (TnI) 0.00 ng/mL <0.04 CKMB 01/08/2018 [facility] CKMB ng/mL 1.8 ng/mL N 0.6-6.[address] [place] [address] [phone] Laboratory test 01/08/2018 [facility] TSH 2.84 N 0.34-5.[address] (Thyroid mcIU/[place] [address] Stim Horm) [phone] Laboratory test 11/20/2017 [facility] TSH 1.54 N 0.34-5.[address] (Thyroid mcIU/[place] [address] Stim Horm) [phone] T3 Free 3.50 pg/mL N 2.5-3.9 Free T4 (Free Thyroxine) 1.19 ng/dL High 0.61-1.12 Laboratory test 11/17/2017 [facility] Blood Urea 15 mg/dL N 6- [address] [place] [address] [phone] Creatinine 11/17/2017 [facility] Creatinine 0.82 mg/dL N 0.51- 0.[address] [place] [address] [phone] Egfr Non- 70.9 >60 Egfr 91.1 >60 27 Laboratory test 10/13/2017 [facility] Troponin-I 0.01 ng/mL < 0.[address] (TnI) [place], [place] [address] [phone] CBC Auto Diff 10/13/2017 [facility] White Blood 7.4 N 3.5- 10.[address] Count 10^3/[place] [address] [phone] Red Blood Count 4.67 10^6/uL N 4.0-5.4 [...] Blood Cells % 0 Laboratory test 10/13/2017 [facility] Lactic Acid 1.0 mmol/L N 0.5-2.0 [address] [place] [address] [phone] Comp Metabolic 10/13/2017 [facility] Sodium 135 mmol/L N 133- [address] [place] [address] [phone] Potassium 4.3 mmol/L N 3.5-5.0 Chloride 103 [...] Egfr Non- 62.8 >60 Egfr 80.8 >60 29 Laboratory test 10/13/2017 [facility] Troponin-I (TnI) 0.00 ng/ mL <0.[address] [place] [address] [phone] Magnesium 2.0 mg/dL N 1.9-2.7 D Dimer Quantitative < 200 ng/mL N Less Than 230 30 Laboratory test 10/13/2017 [facility] TSH (Thyroid 7.01 High 0.34-5.[address] Stim Horm) mcIU/[place] [address] [phone] Free T4 (Free Thyroxine) 1.03 ng/dL N 0.61-1.12 Lipid Profile 06/10/2017 [facility] Triglycerides 104 mg/dL N 31 (Trig/Chol/HDL) [address] [place] [address] [phone] Cholesterol 182 mg/dL N 32 HDL Cholesterol 42.5 mg/dL N 33 LDL Cholesterol 119 mg/dL N 34 Laboratory test 06/10/2017 [facility] Magnesium 1.8 mg/dL Low 1.9-2.[address] [place] [address] [phone] Basic Metabolic 06/10/2017 [facility] Sodium 137 mmol/L N 133- [address] [place] [address] [phone] Potassium 4.1 mmol/L N 3.5-5.0 Chloride 105 mmol/L N 101-111 Co2 Carbon Dioxide 27 mmol/L N 22-32 Anion Gap 5 mmol/L N 2-11 Glucose 88 mg/dL N 70-100 Blood Urea Nitrogen 12 mg/dL N 6-24 Creatinine 0.69 mg/dL N 0.51-0.95 BUN/Creatinine Ratio 17.4 N 8-20 Calcium 9.2 mg/dL N 8.6-10.3 Egfr Non- 86.8 N >60 Egfr 111.6 N >60 35 Laboratory test 05/27/2017 [facility] Cytology SEE RESULT [address] [place] [address] [phone] Laboratory test 02/02/2017 [facility] TSH (Thyroid 2.01 mcIU/mL N 0.34-[address] Stim Horm) .60 [place] [address] [phone] T3 Free 3.40 pg/mL N 2.5-3.9 Free T4 (Free Thyroxine) 0.94 ng/dL N 0.61-1.12 CBC Auto Diff 08/21/2016 [facility] White Blood 9.8 10^3/uL N 3.5-10.[address] [place] [address] [phone] Red Blood Count 4.34 10^6/uL N 4.0-5.4 [...] Nucleated Red Blood Cells % 0 N Inr/Protime 08/21/2016 [facility] Inr 1.21 High 0.89-1.[address] [place] [address] [phone] Laboratory test 08/21/2016 [facility] Partial 33.9 N 26.0- 36.3 finding [address] [facility] [place] [address] Time PTT [phone] Lactic Acid 0.8 mmol/L N 0.5-2.0 37 Comp Metabolic Panel 08/21/2016 [facility] Sodium 134 mmol/L N 133-145 [address] [place] [address] [phone] Potassium 3.9 mmol/L N 3.5-5.0 Chloride 99 [...] 93.3 N >60 Egfr 120.0 N >60 38 Laboratory test finding 08/21/2016 [facility] Lipase 36 U/L N 11.0-82.[address] [place], [place] [phone] C Reactive Protein 78.75 mg/L High < 5.00 39 Urinalysis Profile 08/21/2016 [facility] Urine Color Colorless N [address] [place] [address] [phone] Urine Appearance Clear N Urine Specific [place] 1.014 N 1.010-1.030 Urine pH 7.0 N [...] Urine Bacteria Absent N Absent Laboratory test 08/21/2016 [facility] Blood Culture SEE RESULT [address] [place] [address] [phone] Urine Culture And 08/21/2016 [facility] Urine Culture SEE RESULT [address] [place] [address] [phone] Laboratory test 08/21/2016 [facility] Cytology SEE RESULT [address] Non-Biometric[place] [address] [phone] CBC Auto Diff 08/21/2016 [facility] White Blood 10.4 N 3.5-[address] Count 10^3/uL 0.8 [place] [address] [phone] Red Blood Count 4.49 10^6/uL N 4.0-5.4 [...] Nucleated Red Blood Cells % 0 N Basic Metabolic Panel 08/21/2016 [facility] Sodium 135 mmol/L N 133-145 [address] [place] [address] [phone] Potassium 4.3 mmol/L N 3.5-5.0 Chloride 99 mmol/L Low 101-111 Co2 Carbon Dioxide 29 mmol/L N 22-32 Anion Gap 7 mmol/L N 2-11 Glucose 73 mg/dL N 70-100 Blood Urea Nitrogen 14 mg/dL N 6-24 Creatinine 0.72 mg/dL N 0.51-0.95 BUN/Creatinine Ratio 19.4 N 8-20 Calcium 8.9 mg/dL N 8.6-10.3 Egfr Non- 82.9 N >60 Egfr 106.6 N >60 43 Ua Routine 08/21/2016 [facility] Ua Specific [place] 1.010 Ua PH 5 Ua Color yellow Ua Appera clear Ua WBC neg Ua Protein neg Ua Glucose normal Ua Ketones neg Ua Bilirubin neg Ua Urobilinogen normal Ua Nitrite neg Ua Occult Blood about 250 Laboratory test 02/05/2016 [facility] Magnesium 1.9 mg/dL N 1.9-2.7 finding [address] [place] [address] [phone] Basic Metabolic 02/05/2016 [facility] Sodium 136 mmol/L N 133- 145 Panel 101 [place] [address] [phone] Potassium 4.3 mmol/L N 3.5-5.0 Chloride 102 mmol/L N 101-111 Co2 Carbon Dioxide 31 mmol/L N 22-32 Anion Gap 3 mmol/L N 2-11 Glucose 86 mg/dL N 70-100 Blood Urea Nitrogen 15 mg/dL N 6-24 Creatinine 0.61 mg/dL N 0.51-0.95 BUN/Creatinine Ratio 24.6 High 8-20 Calcium 9.3 mg/dL N 8.6-10.3 Egfr Non- 100.4 N >60 Egfr 129.1 N >60 44 Laboratory 02/05/2016 [facility] Hepatitis C Nonreactive N Nonreactive test finding 101 [facility] [place] [address] [phone] Laboratory 11/16/2015 [facility] Magnesium 1.8 mg/dL Low 1.9- 2.7 test finding 101 [place] [address] [phone] Digoxin 0.5 ng/ml Low 0.8-2.0 Basic Metabolic Panel 11/16/2015 [facility] Sodium 136 mmol/L N 133-145 [address] [place] [address] [phone] Potassium 4.7 mmol/L N 3.5-5.0 Chloride 102 mmol/L N 101-111 Co2 Carbon Dioxide 29 mmol/L N 22-32 Anion Gap 5 mmol/L N 2-11 Glucose 82 mg/dL N 70-100 Blood Urea Nitrogen 16 mg/dL N 6-24 Creatinine 0.66 mg/dL N 0.51-0.95 BUN/Creatinine Ratio 24.2 High 8-20 Calcium 9.4 mg/dL N 8.6-10.3 Egfr Non- 91.7 N >60 Egfr 117.9 N >60 45 Comp Metabolic Panel 10/22/2015 [facility] Sodium 133 mmol/L N 133-145 [address] [place] [address] [phone] Potassium 4.1 mmol/L N 3.5-5.0 Chloride 97 [...] 85.6 N >60 Egfr 110.1 N >60 46 Laboratory test 10/22/2015 [facility] Magnesium 1.8 mg/dL Low 1.9-2.[address] [place] [address] [phone] Coxsackie A 10/22/2015 [facility] Coxsackie <1:[address] [place] [address] A(2) Ab [phone] Coxsackie Virus Type A(4) Ab <1:8 N Coxsackie Virus Type A(7) Ab <1:8 N Coxsackie Virus Type A(9) AB <1:8 N Coxsackie Virus Type A(10) Ab <1:8 N Coxsackie Virus Type A(16) Ab <1:8 N 47 Harrison Lux 10/22/2015 [facility] Ebv Capsid Positive N Negative Comprehensive [address] [place] [address] [phone] Ebv Capsid Ag IgM Ab Negative N Negative Harrison-Lux Nuclear Antigen Positive N Negative Harrison-Lux Virus Interp See Comment N 48 Laboratory test 10/22/2015 [facility] Digoxin 0.8 ng/ml N 0.8- 2.[address] [place] [address] [phone] CBC Auto Diff 10/18/2015 [facility] White Blood 6.3 10^3/uL N 4.8-10.[address] [place] [address] [phone] Red Blood Count 4.95 10^6/uL N 4.0-5.4 [...] Cells % 0 N Laboratory test 10/18/2015 [facility] Lactic Acid 0.8 mmol/L N 0.5-2.2 finding [address] [place] [address] [phone] Comp Metabolic 10/18/2015 [facility] Sodium 135 mmol/L N 133- 145 Panel 101 [place] [address] [phone] Potassium 3.6 mmol/L N 3.5-5.0 Chloride 103 [...] 90.1 N >60 Egfr 115.9 N >60 49 Laboratory test 10/18/2015 [facility] Magnesium 1.8 mg/dL Low 1.9-2.7 finding [address] [place] [address] [phone] Troponin-I (TnI) 0.00 ng/mL N <0.03 50 TSH (Thyroid Stim Horm) 1.39 ?IU/mL N 0.34-5.60 Basic Metabolic Panel 12/17/2014 [facility] Sodium 134 mmol/L N 133-145 [address] [place] [address] [phone] Potassium 4.1 mmol/L N 3.5-5.0 Chloride 103 mmol/L N 101-111 Co2 Carbon Dioxide 30 mmol/L N 22-32 Anion Gap 1 mmol/L Low 2-11 Glucose 72 mg/dL N 70-100 Blood Urea Nitrogen 17 mg/dL N 6-24 Creatinine 0.76 mg/dL N 0.51-0.95 BUN/Creatinine Ratio 22.4 High 8-20 Calcium 9.1 mg/dL N 8.6-10.3 Egfr Non- 78.2 N >60 Egfr 100.5 N >60 51 Basic Metabolic Panel 12/16/2014 [facility] Sodium 134 mmol/L N 133-145 [address] [place] [address] [phone] Potassium 4.1 mmol/L N 3.5-5.0 Chloride 103 mmol/L N 101-111 Co2 Carbon Dioxide 30 mmol/L N 22-32 Anion Gap 1 mmol/L Low 2-11 Glucose 72 mg/dL N 70-100 Blood Urea Nitrogen 17 mg/dL N 6-24 Creatinine 0.76 mg/dL N 0.51-0.95 BUN/Creatinine Ratio 22.4 High 8-20 Calcium 9.1 mg/dL N 8.6-10.3 Egfr Non- 78.2 N >60 Egfr 100.5 N >60 52 Pthi 11/13/2014 [facility] PTH Intact 3.4 pmol/L N 1.3-9.[address] [place] [address] [phone] Calcium (PTH Intact) 9.0 mg/dL N 8.6-10.3 Vitamin D, 25 11/13/2014 [facility] 25-Hydroxy Vitamin 4.5 ng/ mL N Hydroxy [address] [place] [address] [place] [address] [phone] 25-Hydroxy Vitamin D3 32 ng/mL N 25-Hydroxy Vitamin D Total 37 ng/mL N 53 Laboratory test 11/13/2014 [facility] TSH (Thyroid 1.75 IU/mL N 0.34-5.[address] [place] [address] Horm) [phone] Free T3 2.80 pg/mL N 2.5-3.9 Free T4 0.93 ng/mL N 0.61-1.12 Basic Metabolic 10/20/2014 [facility] Sodium 130 mmol/L Low 133-[address] [place] [address] [phone] Potassium 3.9 mmol/L N 3.5-5.0 54 Chloride 98 mmol/L Low 101-111 Co2 Carbon Dioxide 26 mmol/L N 22-32 Anion Gap 6 mmol/L N 2-11 Glucose 80 mg/dL N 70-100 Blood Urea Nitrogen 9 mg/dL N 6-24 Creatinine 0.68 mg/dL N 0.51-0.95 BUN/Creatinine Ratio 13.2 N 8-20 Calcium 8.6 mg/dL N 8.6-10.3 Egfr Non- 88.9 N >60 Egfr 114.3 N >60 55 CBC Auto 10/20/2014 [facility] White Blood 4.6 10^3/uL Low 4.8 -10.[address] [place] [address] [phone] Red Blood Count 4.24 10^6/uL N 4.0-5.4 [...] Cells % 0.1 N Laboratory test 10/20/2014 [facility] Rapid Influenza (SEE NOTE ) [address] [place] [address] [phone] Laboratory test 10/17/2014 [facility] Cytology RUN DATE: [address] 10/18/ <[place] [address] NOTE> [phone] Human Papilloma Virus Rna Negative N Negative 58 Laboratory test 10/13/2014 [facility] TSH (Thyroid 4.13 IU/mL N 0.34-5.[address] [place] [address] Horm) [phone] Free T3 2.60 pg/mL N 2.5-3.9 Free T4 0.94 ng/mL N 0.61-1.12 Laboratory test 09/29/2014 [facility] Magnesium 1.9 mg/dL N 1.9-2.[address] [place] [address] [phone] Troponin I 0.00 ng/mL N <0.03 59 TSH (Thyroid Stimulating Horm) 6.43 IU/mL High 0.34-5.60 Comp Metabolic Panel 09/29/2014 [facility] Sodium 138 mmol/L N 133-[address] [place] [address] [phone] Potassium 4.1 mmol/L N 3.7-5.6 Chloride 103 [...] 70.6 N >60 Egfr 90.8 N >60 60 CBC Auto Diff 09/29/2014 [facility] White Blood 9.4 10^3/uL N 4.8-10.[address] [place] [address] [phone] Red Blood Count 4.55 10^6/uL N 4.0-5.4 [...] Red Blood Cells % 0.1 N Laboratory 11/01/2013 [facility] TSH (Thyroid 6.00 High 0.34- 5.60 test finding [address] Stimulating miu/[place] [address] Horm) [phone] Free T4 0.84 ng/mL 0.61-1.24 Lipid Profile 11/01/2013 [facility] Triglycerides 98 mg/dL 40 -200 (Trig/Chol/HDL) [address] [place], [place] [address] [phone] Cholesterol 208 mg/dL High Less than 200 HDL Cholesterol 64 mg/dL High 40-60 61 Cholesterol/HDL Ratio 3.3 Average 1-4.44 LDL Cholesterol 124.4 High Less Than 100 62 Comp Metabolic Panel 11/01/2013 [facility] Sodium 137 mmol/L 133-[address] [place] [address] [phone] Potassium 4.3 mmol/L 3.5-5.0 Chloride 102 mmol/L [...] Egfr Non- 86.2 >60 Egfr 110.9 >60 63 Laboratory test 11/01/2013 [facility] CRP High 0.8 mg/L [address] [place] [address] [phone] Laboratory test 09/05/2013 [facility] Cytology RUN DATE: [address] 09/06/ [place] [address] <SEE [phone] NOTE> Laboratory test 06/23/2013 [facility] Inr 0.86 Low 0.87- finding [address] 0[address]97 [place] [address] [phone] Activated Partial Thrombo Time 30.7 seconds 22.18-37.18 Comp Metabolic Panel 06/23/2013 [facility] Sodium 136 mmol/L 133-145 [address] [place] [address] [phone] Potassium 4.3 mmol/L 3.5-5.0 Chloride 101 mmol/L [...] Egfr Non- 74.2 >60 Egfr 95.4 >60 66 Laboratory test 06/23/2013 [facility] Magnesium 2.1 mg/dL 1.7 -2.6 finding [address] [place] [address] [phone] Creatine Kinase 60 U/L 0-200 CKMB 06/23/2013 [facility] CKMB ng/mL 2.5 ng/mL 0.3-4.[address] [place] [address] [phone] Laboratory test 06/23/2013 [facility] Troponin I 0.03 ng/mL 0 -0.[address] [place] [address] [phone] TSH (Thyroid Stimulating Horm) 5.87 miu/mL High 0.34-5.60 C Reactive Protein 0.5 mg/dL Less than 0.5 CBC Auto Diff 06/23/2013 [facility] White Blood 7.1 10^3/uL 4.8-10.[address] [place] [address] [phone] Red Blood Count 4.44 10^6/uL 4.0-5.4 Hemoglobin [...] Blood Cells % 0 Laboratory test 06/23/2013 [facility] Erythrocyte Sed 11 mm/Hr 0-[address] [place] [address] [phone] Laboratory test 06/01/2013 [facility] Lyme Disease Positive Negative [address] [place] [address] [phone] Lyme Western 06/01/2013 [facility] Lyme Disease IgG Negative Negative Blot [address] [place] [address] [phone] Lyme Disease IgG Bands Present p41, kDa Lyme Disease IgM Ab WB Positive Negative Lyme Disease IgM Bands Present p41, p23, kDa Lyme Disease Interpretation See Comment 70 Vitamin D, 25 09/09/2012 [facility] 25-Hydroxy Vitamin 6.3 ng/ mL Hydroxy [address] D2 [place] [address] [phone] 25-Hydroxy Vitamin D3 25 ng/mL 25-Hydroxy Vitamin D Total 31 ng/mL 71 Laboratory test 09/09/2012 [facility] CRP High 1.1 mg/L [address] [place] [address] [phone] Comp Metabolic 09/09/2012 [facility] Sodium 137 mmol/L 133- [address] 5 [place] [address] [phone] Potassium 4.5 mmol/L 3.5-5.0 Chloride 106 mmol/L [...] 1.9 1-3 Total Bilirubin 1.0 mg/dL 0.1-1.0 73 Alkaline Phosphatase 38 U/L 30-110 Alt 16 U/L 14-54 Ast 24 U/L 12-42 Egfr Non- 86.6 >60 Egfr 111.3 >60 74 Lipid Profile 09/09/2012 [facility] Triglycerides 62 mg/dL 40 -200 (Trig/Chol/HDL) [address] [place] [address] [phone] Cholesterol 170 mg/dL Less than 200 75 HDL Cholesterol 57 mg/dL 40-60 76 Cholesterol/HDL Ratio 3.0 AVERAGE 1-4.44 LDL Cholesterol 100.6 mg/dL High Less Than 100 Laboratory test 09/09/2012 [facility] TSH (Thyroid 5.50 0.34- 5.60 [address] Stimulating MIU/[place] [address] Horm) [phone] Free T4 0.77 NG/ML 0.61-1.24 78 Ua Routine 09/01/2012 [facility] Ua Specific [place] 1.005 Ua PH 7 Ua Color pale yellow Ua Appera clear Ua WBC neg Ua Protein neg Ua Glucose neg Ua Ketones neg Ua Bilirubin neg Ua Urobilinogen neg Ua Nitrite neg Ua Occult Blood Non hem trace Laboratory test 09/01/2012 [facility] Cytology RUN DATE: [address] <[place] [address] NOTE> [phone] Laboratory test 06/15/2012 [facility] TSH 5.43 MIU/ML 0.34- 5. finding [address] [place] [address] [phone] Magnesium 2.1 mg/dL 1.7-2.6 Laboratory test 06/15/2012 [facility] Calcium 9.3 mg/dL 8.1- 9.[address] [place] [address] [phone] Basic Metabolic Panel 06/15/2012 [facility] Sodium 137 mmol/L 135-[address] [place] [address] [phone] Potassium 4.3 mmol/L 3.5-5.0 Chloride 103 mmol/L 101-111 Co2 (Carbon Dioxide) 28.0 mmol/L 22-32 Anion Gap 6.0 mmol/L 2-11 80 Glucose 95 mg/dL 70-100 BUN 16 mg/dL 6-24 Creatinine 0.7 mg/dL 0.50-1.40 One Over Creatinine 1.42 BUN/Creatinine Ratio 22.9 High 8-20 eGFR Non- 86.9 > 60 eGFR 111.7 > 60 81 Laboratory test 06/10/2011 [facility] Cytology <SEE [address] NOTE> [place] [address] [phone] Laboratory test 06/10/2011 [facility] TSH 4.68 MIU/ML 0.34- finding [address] 5[address]60 [place] [address] [phone] Thyroxine Free 0.86 ng/dL 0.61-1.24 1 Critical Result PLT:7 Called to and read back by: [id number] at: 03/24/2019 11:40:32 by:[email or web address] Consistent with Previous Results Reported on 03/22/19 Critical Result PLT:7 Called to and read back by: [id number] at: 03/24/2019 11:41:08 by:[id number] Consistent with Previous Results Reported on 03/12/19 3 Verbal to [id number] by [id number] at 1115 on 03/22/19.Results read back accurately 4 Marked thrombocytopenia. Reviewed by Gisela Ortega MD 5 Verbal to [id number] by [id number] at 2145 on 03/12/19. Results read back accurately 6 Troponin-I testing on Plasma Separator Tubes (PST) has a known false positive rate of 0.20-0.40%. All positive troponins reflex immediate secondary confirmatory testing. 7 [facility] Severe Sepsis and Septic Shock Management [...] 5 Kidney failure <15 (or dialysis) 9 Normal Range 180 to 914 Indeterminate Range 145 to 180 Deficient Range <145 10 Consistent with Previous Results Reported on 03/12/19. Verbal to [id number] by [id number] at 2335 on 03/12/19. Results read back accurately 11 Because ethnic data is not always [...] 5 Kidney failure <15 (or dialysis) 13 *Ascorbic acid is present which may interfere with detection of blood. 14 Because ethnic data is not always readily [...] 15-29 5 Kidney failure <15 (or dialysis) 15 Because ethnic data is not always [...] 5 Kidney failure <15 (or dialysis) 16 [MG] affected by ICTERUS 17 Because ethnic data is not always [...] - FDP greater than 20 ug/ml 19 >100 to <200 pg/mL: likely compensated congestive heart failure (CHF) 200 to 400 pg/mL: likely moderate CHF >400 pg/mL: likely moderate to severe CHF 20 [facility] Severe Sepsis and Septic Shock Management [...] 5 Kidney failure <15 (or dialysis) 23 [facility] Severe Sepsis and Septic Shock Management Bundle Measure requires all lactic acids initially measuring >2.0 mmol/L be repeated. 24 [facility] Severe Sepsis and Septic Shock Management Bundle Measure requires all lactic acids initially measuring >2.0 mmol/L be repeated. 25 >100 to <200 pg/mL: likely compensated congestive heart failure (CHF) 200 to 400 pg/mL: likely moderate CHF >400 pg/mL: likely moderate to severe CHF 26 Because ethnic data is not always [...] 5 Kidney failure <15 (or dialysis) 27 Because ethnic data is not always [...] 5 Kidney failure <15 (or dialysis) 28 [facility] Severe Sepsis and Septic Shock Management Bundle Measure requires all lactic acids initially measuring >2.0 mmol/L be repeated. 29 Because ethnic data is not always [...] 5 Kidney failure <15 (or dialysis) 30 Please note: The following may produce a false positive D Dimer test: - Rheumatoid factor greater than 60 IU/ml - Plasma hemoglobin greater than 0.05 gm/dl - Bilirubin greater than 50 mg/dl - Lipids greater than 1000 mg/dl - FDP greater than 20 ug/ml 31 Desirable <150 Borderline high 150-199 High 200-499 Very High >500 32 Desirable <200 Borderline high 200-239 High >239 33 Low <40 Desirable: 40-60 High: >60 34 Desirable: <100 mg/dL Near Optimal: 100-129 mg/dL Borderline High: 130-159 mg/dL High: 160-189 mg/dL Very High: >189 mg/dL 35 Because ethnic data is not always [...] 5 Kidney failure <15 (or dialysis) 36 SEE RESULT BELOW Name: CARRIE MOORE : [address]: Zulay Kraus MD Acct: [id number] Unit: [id number] AGE: 61 Location: [facility] Re05/27/17 SEX: F Status: REG REF SPEC: [id number] CHRIS: 05/27/17-[address] [facility] [address]: Zulay Kraus MD REQ: [id number] RECD: 05/27/17 STATUS: SOUT _ ORDERED: TP IMAGE ANAL, HPV 16/18 GENE COMMENTS: [id number] FINAL DIAGNOSIS Negative for Intraepithelial lesion or [...] System. Due to cytologic findings at the cannoneer microscope, comprehensive manual rescreening by a Inventory Control Analyst may be required. The Pap Smear [...] performed at Main Lab DEPARTMENT OF PATHOLOGY, [address] [place] [address] Uziel South M.D. Director [facility] # [id number] 37 [facility] Severe Sepsis and Septic Shock Management Bundle Measure requires all lactic acids initially measuring >2.0 mmol/L be repeated. 38 Because ethnic data is not always [...] 5 Kidney failure <15 (or dialysis) 39 Acute inflammation: >10.00 40 SEE RESULT BELOW Name: CARRIE MOORE : [address]: Darian Agosto MD Acct: [id number] Unit: [id number] AGE: 60 Location: [place] [address] Re08/21/16 Dis: 08/25/16 SEX: F Status: DIS IN SPEC: [id number] CHRIS: 08/21/[address]: Dick Rice MD REQ: [id number] RECD: 08/21/16 STATUS: JOSTIN COBURN DR: Zulay Kraus MD _ SOURCE: [facility] ORDERED: Blood Cult Procedure Result Reported Site Aerobic Culture Bottle Final 08/26/161939 ML No Growth Day 5 Anaerobic Culture Bottle Final 08/26/161939 ML No Growth Day 5 * ML - MAIN LAB ([facility]) . END OF REPORT * ML=Testing performed at Main Lab DEPARTMENT OF PATHOLOGY, [address] [place] [address] Uziel South M.D. Director [facility] # [id number] 41 SEE RESULT BELOW Name: CARRIE MOORE : [address]: Gorge Gipson NP Acct: [id number] Unit: [id number] AGE: 60 Location: [facility] Re08/21/16 SEX: F Status: REG REF SPEC: [id number] CHRIS: 08/21/16-[address]: Gorge Gipson NP REQ: [id number] RECD: 08/21/16 STATUS: COMP _ SOURCE: URINE SPDESC: ORDERED: Urine Culture COMMENTS: [id number] Procedure Result Reported Site Urine Culture Final 08/22/16- 1607 ML No Growth (<1,000 CFU/mL) * ML - MAIN LAB ([facility]) . END OF REPORT * ML=Testing performed at Main Lab DEPARTMENT OF PATHOLOGY, [address] [place] [address] Uziel South M.D. Director [facility] # [id number] 42 SEE RESULT BELOW Name: TERESACARRIE : [address]: Gorge Gipson NP Acct: [id number] Unit: [id number] AGE: 60 Location: [facility] Re08/21/16 SEX: F Status: REG REF SPEC: [id number] CHRIS: 08/21/16-[address]: Gorge Gipson MANAGER FAMILY REQ: [id number] RECD: 08/21/16 STATUS: SOUT _ ORDERED: THIN PREP NON G COMMENTS: [id number] FINAL DIAGNOSIS Urine, voided: --Negative for malignant cells. URINE VOID GROSS DESCRIPTION 7.5 mls of clear pale yellow voided urine. Signed (signature on file) Gisela Ortega MD [id number] END OF REPORT * ML=Testing performed at Main Lab DEPARTMENT OF PATHOLOGY, [address] [place] [address] Uziel South M.D. Director [facility] # [id number] 43 Because ethnic data is not always readily [...] 15-29 5 Kidney failure <15 (or dialysis) 44 Because ethnic data is not always readily [...] 15-29 5 Kidney failure <15 (or dialysis) 45 Because ethnic data is not always [...] 5 Kidney failure <15 (or dialysis) 46 Because ethnic data is not always readily [...] 15-29 5 Kidney failure <15 (or dialysis) 47 REFERENCE RANGE: <1:8 INTERPRETIVE CRITERIA: <1:8 Antibody [...] its performance characteristics have been determined by [email or web address]. Performance characteristics refer to the analytical performance of the test. Test Performed by: [email or web address], [email or web address]. [address] [place] [address] 48 RESULT: Results suggest past infection. ADDITIONAL INFORMATION [...] primary infection with EBV. Test Performed by: [place] [address] Outside Operator: Yariel Alonso II, M.D., Ph.D. 49 Because ethnic data is not always [...] 0.03 ng/mL Not supportive of diagnosis of MD 0.03 - 0.50 ng/mL Indeterminate: suggest serial studies if clinically indicated. Greater than 0.5 ng/mL Consistent with diagnosis of MD 51 Because ethnic data is not always readily [...] 15-29 5 Kidney failure <15 (or dialysis) 52 Because ethnic data is not always [...] 5 Kidney failure <15 (or dialysis) 53 REFERENCE VALUE 25-HYDROXY D TOTAL (D2+D3) Optimum levels in the healthy population are 20-50, patients with bone disease may benefit from higher levels within this range. Test Performed by: [facility] - [address] [address] Outside Operator: Nba Park M.D. 54 Potassium reference range changed effective 10/01/14 55 Because ethnic data is not always [...] 5 Kidney failure <15 (or dialysis) 56 RUN DATE: 10/21/14 [facility] LAB LIVE PAGE 1 RUN TIME: [address] [place] [address] Specimen Inquiry Name: CARRIE MOORE : [address]: Surya De Guzman MD Acct: [id number] Unit: [id number] AGE: 59 Location: [facility] Re10/20/14 SEX: F Status: DEP ER SPEC: [id number] CHRIS: 10/20/14-[address] [facility] [address]: Surya De Guzman MD REQ: [id number] RECD: 10/21/14-1216 STATUS: COMP [facility] DR: Zulay Kraus MD _ SOURCE[facility]: ORDERED: Rapid Flu A B COMMENTS: Verbal to [id number] ([facility]) by [id number] at 1445 on 10/21/14. Results read back accurately. QUERIES: Medent Number [id number] Procedure Result Verified Site Rapid Influenza A [...] at Main Lab DEPARTMENT OF PATHOLOGY, [facility] [employer] [place], [place] [address] Uziel South M.D. Director OFELIA # [id number] 57 RUN DATE: 10/18/14 [facility] LAB LIVE PAGE 1 RUN TIME: 135[address] [place], [place] [address] Specimen Inquiry Name: CARRIE MOORE : [address]: Zulay Kraus MD Acct: [id number] Unit: [id number] AGE: 59 Location: [facility] Re10/17/14 SEX: F Status: REG REF SPEC: [id number] CHRIS: 10/17/14-[address] [facility] [address]: Zulay Kraus MD REQ: [id number] RECD: 10/17/14 STATUS: SOUT _ ORDERED: IMAGE [...] once. Signed (signature on file) Alaina Scanlon CT (ASCP) 10/18/14 1351 This Pap test was evaluated with the assistance of the youwhop Test Imaging System. Due to cytologic findings at the cannoneer microscope, comprehensive manual rescreening by a Inventory Control Analyst may be required. The Pap Smear [...] performed at Main Lab DEPARTMENT OF PATHOLOGY, [address] [place] [address] Uziel South M.D. Director [facility] # [id number] 58 The high-risk HPV types detected by the assay include: 16, 18, 31, 33, 35, 39, 45, 51, 52, 56, 58, 59, 66, and 68. 59 Reference Range and Interpretation: TnI (ng/mL) Interpretation Less Than 0.03 ng/mL Not supportive of diagnosis of MD 0.03 - 0.50 ng/mL Indeterminate: suggest serial studies if clinically indicated. Greater than 0.5 ng/mL Consistent with diagnosis of MD 60 Because ethnic data is not always [...] 5 Kidney failure <15 (or dialysis) 61 HDL Interpretation: Undesirable: High Risk: Less than 40 mg/dL Desirable: Low Risk: Greater than 60 mg/dL 62 LDL Interpretation: Low Risk Optimal Level: LDL Less than 100 mg/dL Near or Above Optimal: LDL 100-129 mg/dL Borderline High Risk: LDL 130-159 mg/dL High Risk: LDL 160-189 mg/dL Very High Risk: LDL Greater than 189 mg/dL 63 Because ethnic data is not always readily [...] 15-29 5 Kidney failure <15 (or dialysis) 64 Less Than 1.0......Low Risk of Cardiovascular Disease 1.0-3.0............Medium Risk (<2 Fold Increase) Greater Than 3.0...High Risk (Approximately 2-Fold Increase) 65 RUN DATE: 09/06/13 [facility] LAB LIVE PAGE 1 RUN TIME: 1152 [address] [facility], [place], [place] [address] Specimen Inquiry Name: CARRIE MOORE : [address]: Fern Jean MD Acct: [id number] Unit: [id number] AGE: 57 Location: [facility] Re09/05/13 SEX: F Status: REG REF SPEC: [id number] CHRIS: 09/05/13-1045 [facility] [address]: Fern Jean MD REQ: [id number] RECD: 09/05/13-7343 STATUS: SOUT _ ORDERED: IMAGE ANALYSIS FINAL [...] ago Signed (signature on file) Alaina Scanlon CT (ASCP) 09/06/13 1152 This Pap test was evaluated with the assistance of the ThinPrep Test Imaging System. Due to cytologic findings at the cannoneer microscope, comprehensive manual rescreening by a Inventory Control Analyst may be required. The Pap Smear [...] performed at Main Lab DEPARTMENT OF PATHOLOGY, [address] [place] [address] Uziel South M.D. Director [facility] Permit #[id number] 66 Because ethnic data is not always readily [...] 15-29 5 Kidney failure <15 (or dialysis) 67 CKMB interpretation should be made in conjunction with clinical symptoms, patient history and EKG changes. 68 Reference Range and Interpretation: TnI (ng/mL) Interpretation Less Than 0.06 ng/mL Not supportive of diagnosis of MD 0.06 - 0.50 ng/mL Indeterminate: suggest serial studies if clinically indicated. Greater than 0.5 ng/mL Consistent with diagnosis of MD 69 Not diagnostic. Supplemental testing ordered by reflex. Test Performed by: [place] [address] Outside Operator: Louie Burkett III, M.D. 70 Consistent with early infection with Borrelia burgdorferi. [...] screening test (e.g., EIA). Test Performed by: [place] [address] Outside Operator: Louie Burkett III, M.D. 71 -- REFERENCE VALUE -- 25-HYDROXY D TOTAL (D2+D3) Optimum levels in the normal population are 25-80 Test Performed by: [place] [address] Outside Operator: Louie Burkett III, M.D. R 72 Less Than 1.0......Low Risk of Cardiovascular Disease 1.0-3.0............Medium Risk (<2 Fold Increase) Greater Than 3.0...High Risk (Approximately 2-Fold Increase) 73 A metabolite of Naproxen, O-desmethylnaproxen, has been shown to interfere with the Jenkary-Bobbi method for measuring total bilirubin. Samples from patients who have taken Naproxen have shown spurious elevation in total bilirubin levels. 74 Because ethnic data is not always readily [...] 15-29 5 Kidney failure <15 (or dialysis) 75 Desirable: Less than 200 MG/DL Borderline-High Risk: 200-239 MG/DL High-Risk: 240 MG/DL and over 76 HDL Interpretation: Undesirable: High Risk: Less than 40 MG/DL Desirable: Low Risk: Greater than 60 MG/DL 77 FASTING 78 FASTING 79 RUN DATE: 09/02/12 [facility] LAB LIVE PAGE 1 RUN TIME: [address] [place] [address] Specimen Inquiry Name: CARRIE MOORE : [address]: Fern Jean MD Acct: [id number] Unit: [id number] AGE: 56 Location: [facility] Re09/01/12 SEX: F Status: REG REF SPEC : [id number] RECD: 09/02/12-1504 STATUS: ELBA HARPER NUM: [id number] CHRIS: 09/01/12-15[address] [facility] [address]: Miranda LIANG,Fern ENTERED: 09/02/12-7344 SP TYPE: CYTOLOGY OT DR: ORDERED: IMAGE ANALYSIS Negative for Intraepithelial [...] (signature on file) DESTIN Ledesma (ASCP) 09/02 1718 This Pap test was evaluated with the assistance of the youwhop Test Imaging System. Due to cytologic findings at the cannoneer microscope, comprehensive manual rescreening by a Inventory Control Analyst may be required. The Pap Smear [...] performed at Main Lab DEPARTMENT OF PATHOLOGY, [address] [place] [address] Uziel South M.D. Director [facility] Permit #[id number] 80 Anion gap measurement may be of limited value in the presence of any alkalosis, especially in a combined acid base disorder. . 81 Because ethnic data is not always readily [...] 15-29 5 Kidney failure <15 (or dialysis) 82 ---- RUN DATE: 06/11/11 [facility] NMI LIVE PAGE 1 RUN TIME: 1456 Specimen Inquiry RUN USER: INTERFACE -- Name: TERESACARRIE Status: REG REF Re06/10/11 Age/Sex: 55/F Unit#: [id number] Location: [facility] : [birth year] -- Specimen: [id number] Spec Date: 06/10/11 [facility] Dr: Fern Jean MD Spec Type: CYTOLOGY Received: 06/11/11-08 Copies to: SOURCE ECTOCERVICAL/ENDOCERVICAL Thin Prep with [...] was evaluated with the assistance of the EcoviatePrep Pap Test Imaging System. The Pap Smear [...] JURADO(ASCP) 06/11/11 1456 -- DEPARTMENT OF PATHOLOGY, [address] [place] [address] [facility] Permit #[id number] Uziel South M.D. Director Ally Hooks M.D. [employer] Supervisor sam -- Procedures Date Code Description Status 03/18/2019 93803 Cardioversion Completed 03/17/2019 96761 Cardioversion Completed 03/13/2019 07775 ECHO Transthorasic Realtime 2D W Doppler & Color Flow Completed Hosp 03/03/2019 51627 EKG Tracing & Interpretation Completed 02/10/2019 19885 ECHO Transthoracic, Real-Time 2D With Doppler And Completed Color Flow 02/10/2019 54427 ECHO Transthoracic, Real-Time 2D With Doppler And Completed Color Flow 01/25/2019 88360 EKG Tracing & Interpretation Completed 10/13/2018 99006 EKG, Interpretation Only Completed 10/13/2018 64434 Cardioversion Completed 10/01/2018 90166 EKG Tracing & Interpretation Completed 09/14/2018 65166 Cardioversion Completed 09/14/2018 74023 Moderate Sedation Services; Same Phys Intl 15 Mins; PT Completed >=5 Years 09/13/2018 24846 EKG Tracing & Interpretation Completed 09/13/2018 22809 EKG Tracing & Interpretation Completed 09/06/2018 94001 Holter Monitor Review (24 hr)dr review & interp only Completed 08/27/2018 76594 ECG Monitor/Recording W/Visual Superimposition Completed Scanning 08/27/2018 03825 EKG Tracing & Interpretation Completed 08/19/2018 49638 EKG, Interpretation Only Completed 08/19/2018 91512 Cardioversion Completed 08/10/2018 21685 Cardioversion Completed 08/10/2018 77386 EKG, Interpretation Only Completed 03/08/2018 [id number] Mammogram Completed 02/12/2018 13593 Moderate Sedation Services; Same Phys Each Additional Completed 15 Mins 02/12/2018 62549 Moderate Sedation Services; Same Phys Intl 15 Mins; PT Completed >=5 Years 02/12/2018 16429 Color Flow Doppler/Interp & Reprt Completed 02/12/2018 01577 Pulse Wave/Continuous-Interp.RPT Completed 02/12/2018 16166 Echocardiography, Transesophageal, Real Time W/Image Completed 2D W/W/O M-M 02/04/2018 22717 ECHO Transthorasic Realtime 2D W Doppler & Color Flow Completed Hosp 11/18/2017 336285227 Bone Mineral Density Test Completed 11/17/2017 67277 ECHO Transthorasic Realtime 2D W Doppler & Color Flow Completed Hosp 11/09/2017 84555 EKG Tracing & Interpretation Completed 10/14/2017 56539 Moderate Sedation Services; Same Phys Intl 15 Mins; PT Completed >=5 Years 10/14/2017 91261 Cardioversion Completed 02/17/2017 [id number] Mammogram Completed 11/17/2016 23232 EKG Tracing & Interpretation Completed 08/24/2016 67063 EKG, Interpretation Only Completed 08/23/2016 30329 EKG, Interpretation Only Completed 02/15/2016 22082652 Mammogram Completed 01/16/2016 98531 Polysomnography Sleep Staging 4+ Parameters Completed 12/03/2015 07475 EKG Tracing & Interpretation Completed 10/10/2015 33065 EKG Tracing & Interpretation Completed 03/19/2015 55452 ECHO Transthorasic Realtime 2D W Doppler & Color Flow Completed Hosp 12/14/2014 59563 EKG Tracing & Interpretation Completed 10/31/2014 979674960 Bone Mineral Density Test Completed 10/31/2014 84208156 Mammogram Completed 09/29/2014 07685 EKG, Interpretation Only Completed 09/13/2014 23595 EKG Tracing & Interpretation Completed 03/06/2014 71147 ECHO Transthorasic Realtime 2D W Doppler & Color Flow Completed Hosp 11/07/2013 90798124 Mammogram Completed 09/05/2013 01698 EKG Tracing & Interpretation Completed 07/22/2013 83860 Myocardial Perfusion Imaging Tomographic (Spect) Completed Multiple Studies 07/22/2013 54629 Stress Test Completed 07/19/2013 56639 Stress Test Completed 07/13/2013 98541 Holter Monitor Review (24 hr)dr review & interp only Completed 07/11/2013 68530 EKG Tracing & Interpretation Completed 07/05/2013 59169 ECHO Transthorasic Realtime 2D W Doppler & Color Flow Completed Hosp 06/23/2013 83574 EKG Tracing & Interpretation Completed 09/09/2012 78841336 Mammogram Completed 09/09/2012 706139927 Bone Mineral Density Test Completed 06/15/2012 90263 EKG Tracing & Interpretation Completed 07/01/2011 95713249 Colonoscopy Completed 04/15/2011 78241361 Mammogram Completed 03/19/2011 43222 EKG Tracing & Interpretation Completed 02/07/2010 93162028 Mammogram Completed 02/07/2010 810325301 Bone Mineral Density Test Completed 01/30/2010 49492 EKG Tracing & Interpretation Completed 01/05/2009 45693 EKG Tracing & Interpretation Completed 12/27/2007 14754 EKG Tracing & Interpretation Completed 12/27/2007 89000 EKG Tracing & Interpretation Completed 11/24/2006 90911 EKG Tracing & Interpretation Completed Encounters Type Date Location Provider Dx Diagnosis [facility] Uli9.6 Thrombocytopenia, 9:10a Assfatimah welsh M.D. unspecified Hospitalists I48.91 Unspecified atrial fibrillation Q87.40 Marfan's syndrome, unspecified E88.09 Oth disorders of plasma-protein metabolism, NEC R60.9 Edema, unspecified E53.8 Deficiency of other specified B group vitamins G43.109 Migraine with aura, not intractable, w/o status migrainosus Office Visit 03/20/2019 3:48p [facility] Viktor S. I48.0 Paroxysmal atrial Of Order Expediter Pedro, DO fibrillation FAC Office Visit 03/19/2019 9:10a [facility] D69.6 Thrombocytopenia, Assoc,fatimah Bunch M.D. unspecified Hospitalists I48.91 Unspecified atrial fibrillation Q87.40 Marfan's syndrome, unspecified R60.9 Edema, unspecified E53.8 Deficiency of other specified B group vitamins G43.109 Migraine with aura, not intractable, w/o status migrainosus Office Visit 03/19/2019 3:36p [facility] Viktor S. I48.0 Paroxysmal atrial Of Order Expediter Pedro, DO fibrillation FACC Office Visit 03/18/2019 9:09a [facility] D69.6 Thrombocytopenia, Assoc,fatimah Bunch M.D. unspecified Hospitalists I48.91 Unspecified atrial fibrillation Q87.40 Marfan's syndrome, unspecified R60.0 Localized edema E53.8 Deficiency of other specified B group vitamins G43.109 Migraine with aura, not intractable, w/o status migrainosus Office Visit 03/18/2019 2:52p [facility] Viktor S. I48.0 Paroxysmal atrial Of Order Expediter Pedro, DO fibrillation FACC Q87.410 Marfan's syndrome with aortic dilation Q87.418 Marfan's syndrome with other cardiovascular manifestations I34.1 Nonrheumatic mitral (valve) prolapse R60.0 Localized edema D69.6 Thrombocytopenia, unspecified Office Visit 03/17/2019 2:39p [facility] Viktor S. I48.0 Paroxysmal atrial Of Order Expediter Pedro, DO fibrillation FACC Q87.410 Marfan's syndrome with aortic dilation I34.1 Nonrheumatic mitral (valve) prolapse R60.0 Localized edema Q87.418 Marfan's syndrome with other cardiovascular manifestations [facility].6 Thrombocytopenia, Visit 9:09a fatimah Evans, unspecified Hospitalists MJuan,FACP E53.8 Deficiency of other specified B group vitamins R60.9 Edema, unspecified I48.91 Unspecified atrial fibrillation R68.81 Early satiety Office 03/16/2019 [facility] Michael D. D69.6 Thrombocytopenia, Visit 9:09a fatimah Evans, unspecified Hospitalists MJuan,FACP E53.8 Deficiency of other specified B group vitamins R60.9 Edema, unspecified I48.91 Unspecified atrial fibrillation R68.81 Early satiety Office 03/15/2019 [facility] Michael D. D69.6 Thrombocytopenia, Visit 9:07a fatimah Evans, unspecified Hospitalists MJuan,FACP E53.8 Deficiency of other specified B group vitamins R60.9 Edema, unspecified I48.91 Unspecified atrial fibrillation Office 03/14/2019 [facility] Michael D. D69.6 Thrombocytopenia, Visit 9:07a fatimah Evans, unspecified Hospitalists MJuan,FACP E53.8 Deficiency of other specified B group vitamins R60.9 Edema, unspecified I48.91 Unspecified atrial fibrillation Office Visit 03/13/2019 [facility] Jessica Nieves D69.6 Thrombocytopenia, 9:07a Assfatimah welsh M.D. unspecified Hospitalists I48.91 Unspecified atrial fibrillation R22.43 Localized swelling, mass and lump, lower limb, bilateral H02.402 Unspecified ptosis of left eyelid Office Visit 03/08/2019 10:20a [facility] Internal Amita R60.1 Generalized edema Ninfa Ennis M.D. Office Visit 03/03/2019 2:40p [facility] Arlen Henderson, R60.0 Localized edema Of Latrell Haney.Torie I48.0 Paroxysmal atrial fibrillation Q87.410 Marfan's syndrome with aortic dilation I71.2 Thoracic aortic aneurysm, without rupture Office Visit 02/24/2019 9:30a Orthopedic Ezequiel I83.10 Varicose veins of Services Of Brittney Call unsp lower C.M.A. extremity with inflammation M84.374D Stress fracture, right foot, subs for fx w [facility] Office Visit 02/22/2019 4:00p [facility] Internal Zulay I83.10 Varicose veins of Ninfa Kraus M.D. unsp lower [place] extremity with inflammation R60.0 Localized edema Office Visit 01/27/2019 Derrek Nieves M84.374D Stress fracture, 9:30a Services Of Brittney Call right foot, subs C.M.A. for fx w [facility]y [facility] Office Visit 01/25/2019 [facility] Arlen Henderson, I48.0 Paroxysmal atrial 9:45a Cardiology Of M.D. fibrillation [facility] Q87.410 Marfan's syndrome with aortic dilation I34.0 Nonrheumatic mitral (valve) insufficiency Office Visit 01/04/2019 9:15a Orthopedic Ezequiel Haney79.671 Pain in right Services Of Brittney Call foot C.M.A. Office Visit 12/02/2018 10:30a Orthopedic Ezequiel Haney79.671 Pain in right Services Of Brittney Call foot C.M.A. Office Visit 11/16/2018 11:10a [facility] Internal [place] Z00.00 Encntr for Ninfa Kraus M.D. general adult [facility] medical exam w/o abnormal findings M81.0 Age-related osteoporosis w/o current pathological fracture M79.671 Pain in right foot Z12.11 Encounter for screening for malignant neoplasm of colon Office Visit 11/09/2018 10:30a [facility] Maria C S. I48.0 Paroxysmal atrial Of Order Expediter Foster, N.P. fibrillation Q87.410 Marfan's syndrome with aortic dilation Z79.01 watermaster (current) use of anticoagulants Office Visit 10/01/2018 1:30p [facility] Maria C S. I48.0 Paroxysmal atrial Of Order Expediter Foster, N.P. fibrillation R00.0 Tachycardia, unspecified R94.31 Abnormal electrocardiogram [ECG] [EKG] Q87.410 Marfan's syndrome with aortic dilation Office Visit 09/13/2018 4:40p [facility] Arlen Henderson I48.92 Unspecified Of Latrell Lugo atrial flutter R00.0 Tachycardia, unspecified Office Visit 08/27/2018 1:30p [facility] Maria C SJan I48.0 Paroxysmal atrial Of Latrell Foster, N.P. fibrillation I77.810 Thoracic aortic ectasia Z79.01 watermaster (current) use of anticoagulants Office Visit 08/18/2018 [facility] Arlen Henderson I48.91 Unspecified atrial 12:58p Of Latrell ChenDJan fibrillation Office Visit 08/18/2018 [facility] Lianna Mcgowan, I48.91 Unspecified atrial 10:32a Assoc,pc DO fibrillation Hospitalists Office Visit 08/10/2018 [facility] Edson Vogt I48.0 Paroxysmal atrial 12:39p Of Latrell Smith M.D. fibrillation Q87.40 Marfan's syndrome, unspecified Z79.01 residential (current) use of anticoagulants Office Visit 08/10/2018 10:37a [facility] Marquita Swain I48.91 Unspecified atrial Assoc,pc N.P. fibrillation Hospitalists Z86.79 Personal history of other diseases of the circulatory system I77.810 Thoracic aortic ectasia M85.80 Ot disrd of bone density and structure, unspecified site I34.0 Nonrheumatic mitral (valve) insufficiency E03.9 Hypothyroidism, unspecified Q87.40 Marfan's syndrome, unspecified Office Visit 08/09/2018 [facility] Danial I48.91 Unspecified 10:37a Assoc,fatimah Mccain N.PJan atrial Hospitalists fibrillation I77.810 Thoracic aortic ectasia M25.511 Pain in right shoulder I34.0 Nonrheumatic mitral (valve) insufficiency E03.9 Hypothyroidism, unspecified Q87.40 Marfan's syndrome, unspecified Office Visit 08/05/2018 [facility] Internal [place] S13.8xxA Sprain of joints 11:10a Medicine Milly Kraus M.D. and ligaments of [facility] oth prt neck, init encntr Office Visit 07/29/2018 [facility] Internal Henry Jesse, M25.511 Pain in right 10:40a Medicine MANAGER FAMILY shoulder Office Visit 01/19/2018 [facility] Meir Bone, Q87.40 Marfan's syndrome, 2:40p Cardiology Of THADDEUS Lugo, unspecified Order Expediter AT [facility] Office Visit 11/09/2017 [facility] Meir Bone, I48.0 Paroxysmal atrial 1:20p Cardiology Of THADDEUS Lugo, fibrillation Order Expediter AT [facility] Q87.40 Marfan's syndrome, unspecified I34.1 Nonrheumatic mitral (valve) prolapse Office Visit 10/20/2017 10:30a [facility] Internal Zulay I48.0 Paroxysmal atrial Ninfa Kraus M.D. fibrillation [facility] E03.9 Hypothyroidism, unspecified Z23 Encounter for immunization Office Visit 10/14/2017 [facility] Arlen Henderson, I48.0 Paroxysmal atrial 11:59a Of Latrell Lugo fibrillation Office Visit 10/14/2017 [facility] Yuriy I48.91 Unspecified atrial 8:30a Assocfatimah M.D. fibrillation Hospitalists Q87.40 Marfan's syndrome, unspecified E03.9 Hypothyroidism, unspecified Office Visit 10/13/2017 [facility] Berna I48.91 Unspecified atrial 8:29a Assocfatimah D.O. 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 Office Visit 05/27/2017 10:30a [facility] Internal Zulay M81.0 Age-related Medicine - Brittney Kraus osteoporosis w/o [place] current pathological fracture E87.6 Hypokalemia E83.42 Hypomagnesemia R21 Rash and other nonspecific skin eruption Z13.220 Encounter for screening for lipoid disorders Z00.01 Encounter for general adult medical exam w abnormal findings Z12.4 Encounter for screening for malignant neoplasm of cervix H61.22 Impacted cerumen, left ear Office Visit 11/17/2016 3:00p [facility] Meir Bone, Q87.40 Marfan's Of [facility] AT [facility].Torie, FAC, syndrome, FSCAI unspecified I34.0 Nonrheumatic mitral (valve) insufficiency I48.0 Paroxysmal atrial fibrillation I34.1 Nonrheumatic mitral (valve) prolapse Office Visit 09/09/2016 9:30a Surgical Darian Montero K35.3 Acute appendicitis [facility] Brittney Agosto with localized peritonitis Office Visit 08/25/2016 1:41p [facility] Ezequiel I48.0 Paroxysmal atrial Assoc,fatimah Wells M.D. fibrillation Hospitalists K35.3 Acute appendicitis with localized peritonitis E03.9 Hypothyroidism, unspecified [facility] Paroxysmal atrial 1:41p Assoc,fatimah Lovelace NP fibrillation Hospitalists K35.3 Acute appendicitis with localized peritonitis E03.9 Hypothyroidism, unspecified Office Visit 08/24/2016 4:36p [facility] Viktor Romo I48.0 Paroxysmal atrial Of [facility] Pedro, DO fibrillation FAC Office Visit 08/23/2016 1:39p [facility] Paroxysmal atrial Assoc,fatimah Lovelace NP fibrillation Hospitalists K35.3 Acute appendicitis with localized peritonitis E03.9 Hypothyroidism, unspecified Office Visit 08/21/2016 2:00p [facility] Internal Gorge Gipson, R10.31 Right lower Medicine - [place] MANAGER FAMILY quadrant pain Rd R35.0 Frequency of micturition Office Visit 02/07/2016 10:45a Pulmonology And Yudi G47.33 Obstructive sleep [facility] [place] apnea (adult) [facility] (pediatric) Office Visit 02/05/2016 11:10a [facility] Internal [place] Z00.00 Encntr for Ninfa Kraus M.D. general adult medical exam w/o abnormal findings Z12.31 Encntr screen mammogram for malignant neoplasm of breast E83.42 Hypomagnesemia E87.6 Hypokalemia Z11.59 Encounter for screening for other viral diseases Office Visit 12/18/2015 10:15a Pulmonology And Yudi G47.9 Sleep disorder, [facility] unspecified [facility] Office Visit 12/03/2015 3:20p [facility] Meir Bone, I48.0 Paroxysmal atrial Of [facility] AT [facility].Torie, [facility], fibrillation FSCAI I34.0 Nonrheumatic mitral (valve) insufficiency Q87.40 Marfan's syndrome, unspecified Office Visit 10/22/2015 11:10a [facility] Internal [place] B34.9 Viral infection, Ninfa Kraus M.D. unspecified I48.0 Paroxysmal atrial fibrillation R74.0 Nonspec elev of levels of transamns & lactic acid dehydrgnse E87.6 Hypokalemia E83.42 Hypomagnesemia R06.83 Snoring Office Visit 10/19/2015 [facility] Yuriy I48.91 Unspecified atrial 10:43a Assoc,fatimah Bunch M.D. fibrillation Hospitalists Q87.40 Marfan's syndrome, unspecified I95.9 Hypotension, unspecified Office Visit 10/18/2015 [facility] Arlen Henderson, I48.0 Paroxysmal atrial 3:45p Of [facility] Brittney fibrillation Office Visit 10/18/2015 [facility] Danial I48.91 Unspecified atrial 10:42a Assoc,fatimah Mccain N.P. fibrillation Hospitalists Q87.40 Marfan's syndrome, unspecified I95.9 Hypotension, unspecified Office Visit 10/10/2015 3:40p [facility] Meir Bone, I34.0 Nonrheumatic mitral [facility], (valve) FSCAI insufficiency I48.0 Paroxysmal atrial fibrillation I77.810 Thoracic aortic ectasia Office Visit 09/20/2015 [facility] Internal [place] B30.1 Conjunctivitis due 11:50a Ninfa Kraus M.D. to adenovirus Office Visit 02/19/2015 Orthopedic Jd Dennis, 726.10 Bursae & Tendon 9:45a Services Of [place] Disorders Shoulder C.M.A. Region Unspec Office Visit 02/05/2015 Orth[facility] Jd Dennis, 840.4 Sprains & Strains 11:00a Services Of [place] Rotator Cuff C.M.A. (Capsule) Office Visit 12/14/2014 [facility] Meir Bone, 427.31 Atrial Fibrillation 3:20p Cardiology Of [place], FACLetha, Order Expediter AT [facility] [place] FSCAI 424.0 Mitral Valve Disorder 759.82 Marfan Syndrome Office Visit 11/07/2014 10:50a [facility] Internal [place] 733.01 Osteoporosis Senile Medicine Brittney Kraus 786.2 Cough Office Visit 10/17/2014 9:10a [facility] Internal [place] V70.0 Examination Medicine Brittney Kraus General Medical Routine AT Health Care Facility V76.10 Screening For Malignant Neoplasm Breast 244.9 Hypothyroidism Other Unspec 733.90 Bone & Cartilage Disorder Unspec 840.4 Sprains & Strains Rotator Cuff (Capsule) V04.81 Need For Prophylactic Vaccination & Inoculation/Influenza V76.2 Screening Malignant Neoplasm Cervix V06.1 Ijiuzcdanv-Qxoivzz-Uhsccolu Combined (DTaP) V72.31 Routine Biometrics Technician Examination Office Visit 09/30/2014 10:58a Ferron Cali Jc 427.31 Atrial Cardiology Brittney Becker Fibrillation 759.82 Marfan Syndrome Office Visit 09/30/2014 [facility] 427.31 Atrial 12:15p Assfatimah welsh M.D. Fibrillation Hospitalists 244.9 Hypothyroidism Other Unspec 759.82 Marfan Syndrome Office Visit 09/29/2014 12:29p [facility] Jared Chaparro 427.31 Atrial Of Latrell Garcia M.D., Fibrillation FAC, FASNC 424.0 Mitral Valve Disorder Office Visit 09/29/2014 [facility] 427.31 Atrial 12:14p fatimah Evans M.D. Fibrillation Hospitalists 244.9 Hypothyroidism Other Unspec 759.82 Marfan Syndrome Office Visit 09/13/2014 2:20p [facility] Meir Bone, 427.31 Atrial Of [facility] AT [facility] [place] Brittney, FACC, Fibrillation FSCAI 424.0 Mitral Valve Disorder Office Visit 03/21/2014 11:40a [facility] Internal Fern Miranda, 088.81 Lyme Disease Medicine M.D., FACP 300.00 Anxiety State Unspec Office Visit 09/05/2013 9:20a [facility] Internal Fern Jean, 780.79 Malaise And Medicine M.D., FACP Fatigue Other V70.0 Examination General Medical Routine AT Health Care Facility V72.31 Routine Biometrics Technician Examination V76.10 Screening For Malignant Neoplasm Breast 424.0 Mitral Valve Disorder 427.31 Atrial Fibrillation 244.9 Hypothyroidism Other Unspec 759.82 Marfan Syndrome V04.81 Need For Prophylactic Vaccination & Inoculation/Influenza 272.0 Hypercholesterolemia Pure v76.2 Screening Malignant Neoplasm Cervix Office Visit 08/04/2013 9:15a [facility] Meir Bone, 427.31 Atrial Of [facility] Brittney, FACC, Fibrillation FSCAI 424.0 Mitral Valve Disorder Office Visit 07/11/2013 10:30a [facility] Meir Bone, 424.0 Mitral Valve Of [facility] AT [facility] [place] MJuan, FACC, Disorder FSCAI Office Visit 06/29/2013 10:00a [facility] Internal Fern Jean, 427.31 Atrial Medicine M.D., FACP Fibrillation 244.9 Hypothyroidism Other Unspec Office Visit 06/23/2013 8:40a [facility] Internal Fern Jean, 786.59 Pain Chest Medicine M.Nathan., FACP Other 427.31 Atrial Fibrillation Office Visit 06/01/2013 10:20a [facility] Internal Fern Jean, 088.81 Lyme Disease Medicine M.D., FACP Office Visit 09/01/2012 1:20p [facility] Internal Fern Jean, V70.0 Examination Medicine M.D., FACP General Medical Routine AT Health Care Facility V72.31 Routine Biometrics Technician Examination V76.10 Screening For Malignant Neoplasm Breast 244.9 Hypothyroidism Other Unspec 759.82 Marfan Syndrome 733.90 Bone & Cartilage Disorder Unspec 300.00 Anxiety State Unspec V04.81 Need For Prophylactic Vaccination & Inoculation/Influenza Office Visit 07/05/2012 11:00a [facility] Internal Oanh Bateman, 300.00 Anxiety State Medicine M.D. Unspec Office Visit 06/15/2012 11:20a [facility] Internal Oanh Bateman, 759.82 Marfan Syndrome Medicine M.D. 244.9 Hypothyroidism Other Unspec 785.1 Palpitations 300.00 Anxiety State Unspec Office Visit 06/10/2011 2:20p DO Not Use Fern Miranda, 759.82 Marfan Syndrome Edy Lugo, FACP 477.9 Rhinitis Allergic Cause Unspec V72.31 Routine Biometrics Technician Examination V70.0 Examination General Medical Routine AT Health Care Facility 244.9 Hypothyroidism Other Unspec Office Visit 03/19/2011 2:15p DO Not Use Fern Miranda, 366.00 Cataract Edy Lugo, FACP Nonsenile Unspec [...] DO Not Use Fern Miranda, V72.31 Routine Biometrics Technician Edy Lugo, FACP Examination 759.82 Marfan Syndrome V04.81 Need For Prophylactic Vaccination & Inoculation/Influenza Office Visit 07/31/2009 DO Not Use Francia Lancaster 692.6 Dermatitis 3:00p Latrell-Jeny N.P. Contact Due To Plants (Except Food) Office Visit 02/01/2009 DO Not Use Fern Miranda, 716.99 Arthropathy 2:30p Edy Lugo, FACP Unspec Multiple Sites 759.82 Marfan Syndrome Office Visit 01/05/2009 1:15p DO Not Use Fern Miranda, V72.31 Routine Biometrics Technician Edy Lugo, FACP Examination 719.40 Pain Joint Site Unspec 759.82 Marfan Syndrome 244.9 Hypothyroidism Other Unspec V04.81 Need For Prophylactic Vaccination & Inoculation/Influenza Office Visit 05/02/2008 DO Not Use Fern Miranda, V07.8 Other Unspecified 10:45a Edy Lugo, FACP Prophylactic Or Treatment Measure Office Visit 02/07/2008 DO Not Use Fern Miranda, 733.90 Bone & Cartilage 11:15a Order Expediter-[place] M.D., FACP Disorder Unspec Office Visit 12/27/2007 DO Not Use Fernprosper Jean, V72.31 Routine Biometrics Technician 10:45a Edy Lugo, FACP Examination 733.90 Bone & Cartilage Disorder Unspec 244.9 Hypothyroidism Other Unspec 759.82 Marfan Syndrome 272.0 Hypercholesterolemia Pure Office Visit 11/24/2006 11:30a DO Not Use Fernprosper Jean, V72.31 Routine Biometrics Technician Edy Lugo, FACP Examination V04.81 Need For Prophylactic Vaccination & Inoculation/Influenza Office Visit 09/15/2006 2:15p DO Not Use Fernprosper Jean, 466.0 Bronchitis Acute Edy Lugo, FACP Plan of Treatment Future Appointment(s):04/01/2019 3:30 pm - Arlen Henderson M.D. at [facility]02/17/2019 - Zulay Kraus M.D.R60.0 Localized edema
[2019-03-29] MEDS ORDERED: traMADol TAB* 50 MG PO PRN (18:55)
--- NOTE | 2019-03-29 19:16 | ADMNOTE ---
Subjective Date of Service: 03/29/19 Interval History: HISTORY AND PHYSICAL PCP: Dr. Ennis Turret Lathe Tender: Dr. Chavez Thread Separator: Dr. Delgado Patent Counsel: Dr. Coyle CC: dizziness HPI: Patient is 63 year old woman with paroxysmal a-fib and recent diagnosis of ITP, was walking to her office today, developed worsening RT shoulder pain, dyspnea. She became so dizzy she had to sit down, but denies palpitations. In general, she has RT shoulder pain when she is going into a-fib. This week overall she has had increasing RT shoulder pain. She had a negative X-ray of RT shoulder in Dr. Coyle's office yesterday. Patient diagnosed w/ ITP during admission from 03/13-, had bone marrow biopsy, 3 days high-dose solu-medrol, 2 days of IVIg during admission. Since admission she has started oral steroids, and had 1st dose of Rituxan on 03/25. Splenectomy is being contemplated. During the same hospitalization, she had two episodes of paroxysmal a-fib, and was cardioverted twice. She is not anticoagulated due to low platelets. Her sotalol has not been increased or decreased in the last month. She also had several months of worsening edema in lower extremities prior to that admission, had an extensive workup of venous systems, cardiac disease, and only low albumin was identified as a cause. Dr. Delgado suspected protein- losing enteropathy, but patient reports she was told this week that albumin levels in stool were normal. In the ER today, patient found to have a-fib with rapid response, was given 15 mg IV diltiazem bolus, and started on 10 mg/hr diltiazem drip. Family History: Findings - Mother with stroke, father with Marfan's and CAD Social History: Findings - , no children, no tobacco, rare alcohol use, no recreational drugs, Surrogate is her Beto Past Medical History: Findings - PMH: hypothyroid, paroxysmal a-fib, ITP, B12 deficiency, Marfan's syndrome with small AAA, Migraine w/ aura, hypoalbuminemia , h/o appendicitis w/o surgery, mitral insufficiency, osteopenia Review of Systems - Measurements Intake and Output: Intake and Output Last 24 Hours 03/27/19 03/28/19 03/29/19 03/30/19 06:59 06:59 06:59 06:59 Weight 71.668 kg - Review of Systems Constitutional Symptoms: Positive: Weakness, Fatigue Negative: Weight Gain Dermatology: Positive: Normal HEENT: Positive: Normal Eyes: Positive: Normal Thyroid: Positive: Primary Hypothyroidism Pulmonary: Positive: Shortness of Breath, Exercise Intolerance Cardiology: Positive: Shortness of Breath Negative: Chest Pain, Palpitations, Swelling of Ankles, Claudication Gastroenterology: Positive: Normal Genital - Urinary: Positive: Normal Genitourinay - Female: Positive: Menopause Endocrinology: Positive: Thyroid Problems Hematologic/Lymphatic: Positive: Anemia Negative: Use of Anticoagulant Neurology: Positive: Normal Psychiatry: Positive: Normal Allergic/Immunologic: Positive: Immunocompromise Objective Active Medications: Home Medications: Cyanocobalamin (Vitamin B12 Tab*) 1,000 mcg PO DAILY OZZIE Levothyroxine Sodium (Synthroid Tab*) 100 mcg PO DAILY OZZIE Magnesium Oxide (Magox 400 Tab*) 400 mg PO BID OZZIE Potassium Chloride (Klor Con Er Tab*) 20 meq PO BID OZZIE Prednisone (Deltasone Tab*) 60 mg PO DAILY OZZIE Tramadol HCl (Ultram*) 50 mg PO Q6HR PRN PRN Reason: PAIN Sotalol 60 mg po BID Vital Signs - 8 hr 03/29/19 03/29/19 03/29/19 16:07 16:12 16:18 Temperature Pulse Rate 126 112 Respiratory 25 33 20 Rate Blood Pressure 129/108 129/89 116/94 (mmHg) O2 Sat by Pulse 98 97 Oximetry 03/29/19 03/29/19 03/29/19 17:37 17:43 17:44 Temperature Pulse Rate 103 Respiratory 13 22 24 Rate Blood Pressure 119/85 123/98 111/89 (mmHg) O2 Sat by Pulse 92 Oximetry 03/29/19 03/29/19 03/29/19 18:43 18:48 18:53 Temperature Pulse Rate 112 96 101 Respiratory 19 21 17 Rate Blood Pressure 122/94 130/88 126/85 (mmHg) O2 Sat by Pulse 97 98 97 Oximetry 03/29/19 18:59 Temperature 36.2 C Pulse Rate 107 Respiratory 20 Rate Blood Pressure 121/91 (mmHg) O2 Sat by Pulse 97 Oximetry Oxygen Devices in Use Now: None Appearance: alert, no distress Eyes: No Scleral Icterus Ears/Nose/Mouth/Throat: NL Teeth, Lips, Gums Neck: NL Appearance and Movements; NL JVP, Trachea Midline Respiratory: Symmetrical Chest Expansion and Respiratory Effort, Clear to Auscultation Cardiovascular: NL Sounds; No Murmurs; No JVD, No Edema, - - tachy, irregular Abdominal: NL Sounds; No Tenderness; No Distention Lymphatic: No Cervical Adenopathy Skin: No Rash or Ulcers Neurological: Alert and Oriented x 3 Lines/Tubes/Other Access: Clean, Dry and Intact Peripheral IV Nutrition: Taking PO's Result Diagrams: 03/30/19 05:23 03/30/19 05:23 Additional Lab and Data: Laboratory Tests 03/29/19 03/29/19 03/29/19 15:40 15:40 15:59 Glucose 150 H Lactic Acid 3.7 H* AST 25 ALT 41 B-Natriuretic Peptide 874 H Albumin 4.0 Diagnostic Imaging: CT Chest/abdo/pelvis: 2.9 cm AAA, no significant findings EKG Data: A-fib, rapid ventricular response at 135 bpm Assess/Plan/Problems-Billing Assessment: 63 year old woman with recent diagnosis of ITP, here with recurrent a-fib - Patient Problems (1) Atrial fibrillation with rapid ventricular response Current Visit: Yes Status: Acute Priority: High Code(s): I48.91 - UNSPECIFIED ATRIAL FIBRILLATION SNOMED Code(s): 282049380288654 Comment: -Patient admitted to telemetry -Diltiazem drip titrated up to 12.5 mg/hr -Discussed case with Dr. Garcia, he will see patient tomorrow. -Not anticoagulated due to low platelets, risk of hemorrage -Cardiology may cross-titrate to tikosyn or flecainide -Troponins repeated to rule out ischemia (2) DVT prophylaxis Current Visit: No Status: Acute Priority: Low Code(s): [id number] - SNOMED Code(s): 507146717 Comment: - not indicated (3) Edema Current Visit: No Status: Chronic Priority: Medium Code(s): R60.9 - EDEMA , UNSPECIFIED SNOMED Code(s): 180115856 Comment: - Dr Delgado apparently did not find protein-losing enteropathy. - Edema has resolved, albumin now normal (4) Thrombocytopenia Current Visit: No Status: Chronic Priority: Medium Code(s): D69.6 - THROMBOCYTOPENIA, UNSPECIFIED SNOMED Code(s): 983841256 Comment: -PLT up to 37, adequate to prevent active bleeding -Will continue Prednisone, discuss Rituxan with hematology (5) Lactic acid blood increased Current Visit: Yes Status: Acute Priority: Medium Code(s): R79.89 - OTHER SPECIFIED ABNORMAL FINDINGS OF BLOOD CHEMISTRY SNOMED Code(s): 0880782 Comment: -Tachycardia due to a-fib, no sign of sepsis -Will recheck lactate in 3 hrs Status and Disposition: inpatient for cardiac monitoring
[2019-03-29] MEDS ORDERED: Lidocaine Patch REMOVE* 1 NOTE MISC SCH (21:00)
[2019-03-29] MEDS: Potassium Chlor TAB* 20 MEQ TAB.ER PO SCH (22:13)
[2019-03-29] MEDS: Magnesium Oxide TAB* 400 MG PO SCH (22:14)
[2019-03-30] MEDS ORDERED: Diltiazem IV VIAL* 125 MG in NS 0.9% 100 ML* 100 ML IV SCH ×3 (01:00→04:00)
[2019-03-30] MEDS: Levothyroxine TAB* 100 MCG TAB PO SCH (05:15)
[2019-03-30 06:27] LABS: ABS Basophils 0 10^3/ul (0-0.2); ABS Eosinophils 0 10^3/ul (0-0.6); ABS Lymphocytes 1.4 10^3/ul (1.0-4.8); ABS Monocytes 0.9 10^3/ul (0-0.8); ABS Neutrophils 5.9 10^3/ul (1.5-7.7); ABS Nucleated RBC 0 10^3/ul; Eosinophil % 0.5 %; Hematocrit 38 % (33-41); Hemoglobin 12.4 g/dL (12.0-16.0); Lymphocyte % 16.6 %; Mean Corpuscular HGB Conc 33 g/dL (31-36); Mean Corpuscular Hemoglobin 30 pg (27-31); Mean Corpuscular Volume 90 fL (80-97); Mean Platelet Volume 12.2 fL (7.4-10.4); Nucleated Red Blood Cells % 0.1; Platelet Count 43 10^3/uL (150-450); Red Blood Count 4.21 10^6 /uL (3.70-4.87); Red Cell Distribution Width 16 % (10.5-15); White Blood Count 8.2 10^3/uL (3.5-10.8)
[2019-03-30 06:39] LABS: BUN/Creatinine Ratio 29.7 (8-20); Calcium 8.8 mg/dL (8.6-10.3); EGFR African American 113.8 (>60); Potassium 4.1 mmol/L (3.5-5.0)
[2019-03-30] MEDS: predniSONE TAB* 20 MG PO SCH (08:33)
[2019-03-30] MEDS: Potassium Chlor TAB* 20 MEQ TAB.ER PO SCH ×2 (08:33→20:10)
[2019-03-30] MEDS: Magnesium Oxide TAB* 400 MG PO SCH ×2 (08:33→20:10)
[2019-03-30] MEDS: Cyanocobalamin TAB* 500 MCG PO SCH (08:33)
[2019-03-30] MEDS ORDERED: Metoprolol Tartrate TAB* 25 MG PO SCH (15:14)
--- NOTE | 2019-03-30 15:39 | PN ---
Subjective Date of Service: 03/30/19 Interval History: HOSPITALIST PROGRESS NOTE Patient seen and examined at bedside. Care reviewed and d/w Jesusita Mckeon RN. She feels better today. Shoulder pain is much improved, denies palpitations or chest pain. Family History: Unchanged from Admission Social History: Unchanged from Admission Past Medical History: Unchanged from Admission Objective Active Medications: Cyanocobalamin (Vitamin B12 Tab*) 1,000 mcg PO DAILY [facility] Last Admin: 03/30/19 08:33 Dose: 1,000 mcg Levothyroxine Sodium (Synthroid Tab*) 100 mcg PO DAILY@0600 [facility] Last Admin: 03/30/19 05:15 Dose: 100 mcg Magnesium Oxide (Magox 400 Tab*) 400 mg PO BID [facility] Last Admin: 03/30/19 08:33 Dose: 400 mg Metoprolol Tartrate (Lopressor Tab*) 25 mg PO DAILY [facility] Potassium Chloride (Klor Con Er Tab*) 20 meq PO BID [facility] Last Admin: 03/30/19 08:33 Dose: 20 meq Prednisone (Deltasone Tab*) 60 mg PO DAILY [facility] Last Admin: 03/30/19 08:33 Dose: 60 mg Tramadol HCl (Ultram*) 50 mg PO Q6HR PRN PRN Reason: PAIN Vital Signs - 8 hr 03/30/19 03/30/19 03/30/19 07:45 08:00 11:31 Temperature 97.7 F 97.3 F Pulse Rate 73 49 Respiratory 17 18 17 Rate Blood Pressure (mmHg) O2 Sat by Pulse 98 99 Oximetry 03/30/19 03/30/19 03/30/19 11:43 13:44 13:48 Temperature Pulse Rate Respiratory Rate Blood Pressure 109/83 90/67 107/62 (mmHg) O2 Sat by Pulse Oximetry 03/30/19 13:50 Temperature 97.8 F Pulse Rate 73 Respiratory 20 Rate Blood Pressure 105/66 (mmHg) O2 Sat by Pulse 98 Oximetry Oxygen Devices in Use Now: None Appearance: Pleasant lady sitting up in bed in NAD. Eyes: No Scleral Icterus Ears/Nose/Mouth/Throat: Mucous Membranes Moist Neck: Trachea Midline Respiratory: Symmetrical Chest Expansion and Respiratory Effort, Clear to Auscultation Cardiovascular: - - Normal S1 and S2, irregularly irregular Neurological: Alert and Oriented x 3, NL Muscle Strength and Tone Result Diagrams: 03/30/19 05:23 03/30/19 05:23 Assess/Plan/Problems-Billing Assessment: Mrs Soto is a 63 yo F with recent diagnosis of ITP, PAF, who presented to ED with c/o shoulder pain, here with recurrent Afib. - Patient Problems (1) Atrial fibrillation with rapid ventricular response Comment: - Rate is controlled with Diltiazem drip at 10 mg/hr. - Not anticoagulated due to thrombocytopenia. - Awaiting Cardiology consult. (2) Thrombocytopenia Comment: - Platelets up to 42. - Continue prednisone 60mg/day. - Awaiting Hematology evaluation re: possibility of anticoagulation now her platelets are trending up. (3) Lactic acid blood increased Comment: - Due to poor perfusion in the setting of Afib RVR - now resolved. (4) Full code status Status and Disposition: Inpatient.
[2019-03-30] MEDS ORDERED: NS 0.9% 100 ML* 0 ML ONE (18:23)
[2019-03-30] MEDS: Diltiazem IV VIAL* 125 MG in NS 0.9% 100 ML* 100 ML IV SCH (18:54)
[2019-03-30] MEDS: Apixaban* 5 MG TAB PO SCH (21:25)
--- NOTE | 2019-03-30 21:55 | CONS ---
CC: Dr. Coyle; Dr. Ennis * CARDIOLOGY CONSULTATION: DATE OF CONSULT: 03/30/19 REASON FOR CONSULTATION: Atrial fibrillation. HISTORY OF PRESENT ILLNESS: Carrie Soto is a 63-year-old woman whom I follow as an outpatient with a history of Marfan syndrome with dilated ascending aorta and paroxysmal atrial fibrillation for which she has been on sotalol since 2018. More recently, the patient had rather rapid onset of lower extremity edema of uncertain etiology and following this, she developed easy bruising and was subsequently diagnosed with ITP. She was admitted in February for this. Her platelet count became markedly low under 10 and her Eliquis was discontinued. On the February admission, the patient had paroxysmal atrial fibrillation on sotalol. She was cardioverted once, the atrial fibrillation recurred. She declined the option of converting to a different antiarrhythmic and the patient was cardioverted the second time and this held while she was in the hospital. The patient tells me that 8 days ago she received prednisone, and she also received Rituxan therapy. Last week with her prednisone dose, she noted right shoulder pain and it has been observed her heart rate was fast, but she did not perceive she was in atrial fibrillation. In the past, the right shoulder pain, however, has correlated with AFib. She had been told her pulse rate was rapid at Rituxan infusions. Last night, the patient was coming home from work and her shoulder was extremely painful and she felt very weak and her insisted she present to the emergency room. In the emergency room, she was found to be in atrial fibrillation with a rapid ventricular rate. Overnight, the patient has been on rate control with Cardizem drip and this morning, she feels much better, her shoulder pain has resolved and weakness has improved. PAST MEDICAL HISTORY: The patient has a past medical history of: 1. Marfan syndrome. 2. Thoracic aortic aneurysm. 3. Paroxysmal atrial fibrillation. 4. Cataracts. 5. Lyme disease. 6. ITP. MEDICATIONS: Current inpatient medications include: 1. Cardizem drip. 2. Vitamin B12 at 1000 mcg a day. 3. Levothyroxine 100 mcg a day. 4. Magnesium oxide 400 mg b.i.d. 5. Potassium 40 mEq a day. 6. Prednisone 60 mg a day. 7. Tramadol 50 mg q.6 hours p.r.n. ALLERGIES: Include SULFA and NICKEL. 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 Lives with her partner. No history of alcohol or tobacco use. FAMILY HISTORY: Significant that her mother had a stroke, her father had a history of Marfan's and coronary artery disease. REVIEW OF SYSTEMS: Significant as above for intermittently noting that her heart rate was tachycardic, intermittent shoulder pain for approximately 8 days. She denied typical sensation with her AFib. She has noted she has been somewhat fatigued. She denied chest pain, pressure, heaviness, orthopnea, PND. She denied recent fevers, chills, sweats and her leg edema is significantly improved with treatment for her ITP. All other 14-point review of systems was negative. PHYSICAL EXAM: On exam, the patient is 5 feet 10 inches, weighs 160 pounds with a BMI of 23. Blood pressure 105/66, pulse was in the 80s to low 100s, she is afebrile, oxygen saturation 98 % on room air. General Appearance: Somewhat older woman, lying in bed at 40 degrees, appearing comfortable, in no acute distress. Psychologically, pleasant and cooperative. Neurologically, awake, alert, oriented to person, place, and time. Cranial nerves II through XII intact. Grossly normal sensory and motor function on bed exam. Skin: Warm, dry. No appreciable cyanosis or rashes. She had some mild ecchymosis in the exposed areas of the upper extremities, but not in other areas of body. HEENT: Mucous membranes moist. Neck without increased JVP. No thyromegaly appreciated. Good carotid pulses without bruits. Respirations were clear in all sandoval. No wheezes, rales, or rhonchi. Kyphoscoliosis, asymmetric noted. Coronary: S1, S2 irregularly irregular without appreciable murmurs. Abdomen: Active bowel sounds. Soft, nontender. I did not feel for the spleen and no hepatomegaly. Lower extremities were free of edema and warm, much improved from prior recent exam. DIAGNOSTIC STUDIES/LAB DATA: White count 8.2, hematocrit 38, platelets 43 ( improved from 38 yesterday). Sodium 137, potassium 4.1, chloride 104, bicarb 26 , BUN 19, creatinine 0.64. Lactic acid 3.7 on admission, improved to 1.8 yesterday. Troponin 0.01, 0.01, 0.01. BNP of 874. Total protein 7.5, albumin 4.0. EKG done on 03/29/19 showed atrial fibrillation with a rapid ventricular rate of 132 beats a minute, QRS axis +60 with normal intraventricular conduction times. She had some mild nonspecific ST changes. CT of the abdomen, chest, and pelvis on admission, 03/29/19 showed no evidence of hematoma, moderate diverticulosis, no evidence of diverticulitis, no lymphadenopathy, no ascites, fibroid uterus noted, fusiform aneurysm, infrarenal abdomen 2.9 cm, stable. Chest x-ray from 03/29/19 consistent with COPD and old granulomatous disease, hiatal hernia, and mild cardiomegaly. Echocardiogram from 03/13/19 showed mild to moderate left ventricular hypertrophy with an ejection fraction of 55% to 60 % with abnormal diastolic filling, trace aortic insufficiency, mild mitral insufficiency with a posterior jet, mild tricuspid insufficiency, thoracic aorta was moderately dilated at 4.08, ascending thoracic aneurysm was mildly dilated at 3.6 cm, aortic root was 4.4 cm. IMPRESSION: In summary, Carrie Soto is a 63-year-old woman admitted with atrial fibrillation of uncertain duration possibly for as long as a week and she is off anticoagulant due to her ITP and marked thrombocytopenia. For the atrial fibrillation, I recommend we stop sotalol allow wash out. We can continue with rate control for now. I am going to add metoprolol and we can titrate as blood pressure and heart rate allow. The patient is not a candidate for cardioversion, I feel there is some stroke risk as there is a possibility she has been in this rhythm for a week. Although her CHADS and CHADS-vasc score are low, there are factors that are difficult to quantitate such as bleeding and clotting risk with her thrombocytopenia, steroid use and Marfan's. I discussed with Hematology and they feel that we could resume anticoagulation now as her platelets are close to 50,000 and it is anticipated that she would be able to continue it for up to a month. Dr. Coyle feels that with her current treatment, he thinks the platelet count count should be durable for this amount of time. Hematology has recommended splenectomy, but he feels that we can continue anticoagulation for approximately a month postcardioversion as she willcontinue to get Rituxan infusions prior to splenectomy.. Once she has been on anticoagulation and Sotalol has weaned off we could consider BUDDY-guided cardioversion and initiation of a new antiarrhythmic. Tikosyn or flecainide would be options. Additional recommendations will be made pending her clinical course, future platelet counts and response to the above measures. [id number]/[facility] #: [id number] [facility]
[2019-03-30] MEDS: Digoxin IV* 0.5 MG/2 ML AMP (0.25 MG/ML) IV SLOW PU SCH (22:52)
[2019-03-31] MEDS: Levothyroxine TAB* 100 MCG TAB PO SCH (04:54)
[2019-03-31] MEDS: Digoxin IV* 0.5 MG/2 ML AMP (0.25 MG/ML) IV SLOW PU SCH (04:54)
[2019-03-31 06:30] LABS: ABS Basophils 0 10^3/ul (0-0.2); ABS Eosinophils 0.1 10^3/ul (0-0.6); ABS Lymphocytes 1.5 10^3/ul (1.0-4.8); ABS Monocytes 0.8 10^3/ul (0-0.8); ABS Neutrophils 5.8 10^3/ul (1.5-7.7); ABS Nucleated RBC 0 10^3/ul; Eosinophil % 0.7 %; Hematocrit 38 % (35-47); Hemoglobin 12.6 g/dL (12.0-16.0); Lymphocyte % 18.4 %; Mean Corpuscular HGB Conc 33 g/dL (31-36); Mean Corpuscular Hemoglobin 30 pg (27-31); Mean Corpuscular Volume 89 fL (80-97); Mean Platelet Volume 11.1 fL (7.4-10.4); Nucleated Red Blood Cells % 0.1; Platelet Count 55 10^3/uL (150-450); Red Blood Count 4.25 10^6 /uL (3.70-4.87); Red Cell Distribution Width 16 % (10.5-15); White Blood Count 8.1 10^3/uL (3.5-10.8)
[2019-03-31 06:41] LABS: BUN/Creatinine Ratio 33.9 (8-20); Calcium 8.8 mg/dL (8.6-10.3); EGFR Non-African American 97.5 (>60); Potassium 3.8 mmol/L (3.5-5.0)
[2019-03-31] MEDS: Potassium Chlor TAB* 20 MEQ TAB.ER PO SCH ×2 (08:16→19:48)
[2019-03-31] MEDS: predniSONE TAB* 20 MG PO SCH (08:16)
[2019-03-31] MEDS: Cyanocobalamin TAB* 500 MCG PO SCH (08:16)
[2019-03-31] MEDS: Metoprolol Tartrate TAB* 25 MG PO SCH ×2 (08:16→19:48)
[2019-03-31] MEDS: Apixaban* 5 MG TAB PO SCH ×2 (08:17→19:48)
[2019-03-31] MEDS: Magnesium Oxide TAB* 400 MG PO SCH ×2 (08:17→19:48)
[2019-03-31] MEDS: Diltiazem TAB* 30 MG PO SCH ×3 (08:17→17:13)
--- NOTE | 2019-03-31 15:12 | PN ---
Subjective Date of Service: 03/31/19 Interval History: HOSPITALIST PROGRESS NOTE Patient seen and examined at bedside. Care reviewed and d/w Carrie Peters RN. She offers no new complaints, no further episodes of chest or shoulder pain. Family History: Unchanged from Admission Social History: Unchanged from Admission Past Medical History: Unchanged from Admission Objective Active Medications: Apixaban (Eliquis*) 5 mg PO BID [facility] Last Admin: 03/31/19 08:17 Dose: 5 mg Cyanocobalamin (Vitamin B12 Tab*) 1,000 mcg PO DAILY [facility] Last Admin: 03/31/19 08:16 Dose: 1,000 mcg Diltiazem HCl (Cardizem Tab*) 30 mg PO Q6HR [facility] Last Admin: 03/31/19 12:23 Dose: 30 mg Diltiazem HCl 125 mg/ Sodium (Chloride) 125 mls @ 5 mls/hr IV Q24H [facility]; Protocol Last Admin: 03/30/19 18:54 Dose: 5 mls/hr Levothyroxine Sodium (Synthroid Tab*) 100 mcg PO DAILY@0600 [facility] Last Admin: 03/31/19 04:54 Dose: 100 mcg Magnesium Oxide (Magox 400 Tab*) 400 mg PO BID [facility] Last Admin: 03/31/19 08:17 Dose: 400 mg Metoprolol Tartrate (Lopressor Tab*) 25 mg PO Q12H [facility] Last Admin: 03/31/19 08:16 Dose: 25 mg Potassium Chloride (Klor Con Er Tab*) 20 meq PO BID [facility] Last Admin: 03/31/19 08:16 Dose: 20 meq Prednisone (Deltasone Tab*) 60 mg PO DAILY [facility] Last Admin: 03/31/19 08:16 Dose: 60 mg Tramadol HCl (Ultram*) 50 mg PO Q6HR PRN PRN Reason: PAIN Vital Signs - 8 hr 03/31/19 03/31/19 03/31/19 07:45 08:00 08:09 Temperature 97.7 F Pulse Rate 54 94 Respiratory 12 16 Rate Blood Pressure (mmHg) O2 Sat by Pulse 100 Oximetry 03/31/19 03/31/19 03/31/19 08:16 10:13 11:05 Temperature 98.0 F Pulse Rate 76 Respiratory 20 Rate Blood Pressure 112/78 116/76 (mmHg) O2 Sat by Pulse 98 Oximetry 03/31/19 03/31/19 12:12 14:13 Temperature Pulse Rate Respiratory Rate Blood Pressure 112/67 114/62 (mmHg) O2 Sat by Pulse Oximetry Oxygen Devices in Use Now: None Appearance: Pleasant lady sitting up in bed in NAD Eyes: No Scleral Icterus Ears/Nose/Mouth/Throat: Mucous Membranes Moist Neck: Trachea Midline Respiratory: Symmetrical Chest Expansion and Respiratory Effort, Clear to Auscultation Cardiovascular: - - Normal S1 and S2, irregularly irregular Neurological: Alert and Oriented x 3, NL Muscle Strength and Tone Result Diagrams: 03/31/19 05:50 03/31/19 05:50 Assess/Plan/Problems-Billing Assessment: Mrs Soto is a 63 yo F with PMH of Marfan's syndrome, thoracic aortic aneurysm , recent diagnosis of ITP, PAF, who presented to ED with c/o shoulder pain, here with recurrent Afib. - Patient Problems (1) Atrial fibrillation with rapid ventricular response Comment: - Cardiology consult appreciated. - Plan for rate control at this time - on Diltiazem drip, Diltiazem and Metoprolol PO. - D/w Hematology (Dr Coyle) 03/30/19 - as her platelet count is improving, she can be anticoagulated, so started on Apixaban. - Plan is for rate control and cardioversion next week, and starting Tykosyn or Flecainide after. - May be able to go home for the weekend if we're able to rate control her with PO meds; if not, will have to stay in the hospital for cardioversion. (2) Thrombocytopenia Comment: - Secondary to ITP. - Platelets up to 55. - Continue prednisone 60mg/day. - Will discuss timing of next Rituxan infusion with Hematology. (3) Lactic acid blood increased Comment: - Due to poor perfusion in the setting of Afib RVR - now resolved. (4) Full code status Status and Disposition: Inpatient.
[2019-03-31] MEDS: Diltiazem IV VIAL* 125 MG in NS 0.9% 100 ML* 100 ML IV SCH (17:24)
[2019-04-01] MEDS: Diltiazem TAB* 30 MG PO SCH ×2 (00:13→05:04)
[2019-04-01] MEDS: Levothyroxine TAB* 100 MCG TAB PO SCH (05:04)
[2019-04-01] MEDS: Cyanocobalamin TAB* 500 MCG PO SCH (09:02)
[2019-04-01] MEDS: Magnesium Oxide TAB* 400 MG PO SCH ×2 (09:02→21:44)
[2019-04-01] MEDS: Potassium Chlor TAB* 20 MEQ TAB.ER PO SCH ×2 (09:02→21:44)
[2019-04-01] MEDS: predniSONE TAB* 20 MG PO SCH (09:02)
[2019-04-01] MEDS: Metoprolol Tartrate TAB* 50 mg PO SCH ×3 (09:02→19:07)
[2019-04-01] MEDS: Apixaban* 5 MG TAB PO SCH ×2 (09:02→21:44)
[2019-04-01] MEDS: Diltiazem CD CAP* 180 MG PO SCH ×2 (09:02→09:49)
[2019-04-01] MEDS ORDERED: Diltiazem IV VIAL* 125 MG in NS 0.9% 100 ML* 100 ML IVPB SCH (11:30)
[2019-04-01 11:47] LABS: ABS Eosinophils 0.1 10^3/ul (0-0.6); ABS Lymphocytes 1.3 10^3/ul (1.0-4.8); ABS Monocytes 1.4 10^3/ul (0-0.8); ABS Neutrophils 12.9 10^3/ul (1.5-7.7); Eosinophil % 0.7 %; Hematocrit 41 % (35-47); Hemoglobin 13.3 g/dL (12.0-16.0); Lymphocyte % 8.5 %; Mean Corpuscular HGB Conc 32 g/dL (31-36); Mean Corpuscular Hemoglobin 29 pg (27-31); Mean Corpuscular Volume 90 fL (80-97); Mean Platelet Volume 11.1 fL (7.4-10.4); Platelet Count 76 10^3/uL (150-450); Red Blood Count 4.63 10^6 /uL (3.70-4.87); Red Cell Distribution Width 16 % (10.5-15); White Blood Count 15.7 10^3/uL (3.5-10.8)
[2019-04-01] MEDS ORDERED: Acetaminophen TAB* 325 MG PO ONE (12:52)
[2019-04-01] MEDS ORDERED: diPHENhydraMINE IV* 50 MG in NS 0.9% 50 ML* 50 ML IVPB ONE (12:52)
[2019-04-01] MEDS ORDERED: NS 0.9% IVPB ONE (13:00)
[2019-04-01] MEDS ORDERED: RITUXIMAB IVPB ONE (13:00)
[2019-04-01] MEDS ORDERED: diPHENhydraMINE IV* 50 MG/ML 1 ml VIAL (BENADRYL) IV ONE (13:30)
[2019-04-01] MEDS ORDERED: diPHENhydraMINE IV* 50 MG/ML 1 ml VIAL (BENADRYL) SLOW PUSH ONE (14:21)
--- NOTE | 2019-04-01 16:16 | PN ---
Subjective Date of Service: 04/01/19 Interval History: HOSPITALIST PROGRESS NOTE Patient seen and examined at bedside. Care reviewed and d/w Zen Wynne RN. No new complaints. Still tachycardic up to 130s with exertion, but in the 80s at rest. Denies dyspnea, palpitations, chest or shoulder pain. Family History: Unchanged from Admission Social History: Unchanged from Admission Past Medical History: Unchanged from Admission Objective Active Medications: Apixaban (Eliquis*) 5 mg PO BID [facility] Last Admin: 04/01/19 09:02 Dose: 5 mg Cyanocobalamin (Vitamin B12 Tab*) 1,000 mcg PO DAILY [facility] Last Admin: 04/01/19 09:02 Dose: 1,000 mcg Diltiazem HCl (Cardizem Cd Cap*) 180 mg PO DAILY [facility] Last Admin: 04/01/19 09:49 Dose: Not Given Levothyroxine Sodium (Synthroid Tab*) 100 mcg PO DAILY@0600 [facility] Last Admin: 04/01/19 05:04 Dose: 100 mcg Magnesium Oxide (Magox 400 Tab*) 400 mg PO BID [facility] Last Admin: 04/01/19 09:02 Dose: 400 mg Metoprolol Tartrate (Lopressor Tab*) 50 mg PO Q12H [facility] Last Admin: 04/01/19 09:02 Dose: 50 mg Potassium Chloride (Klor Con Er Tab*) 20 meq PO BID [facility] Last Admin: 04/01/19 09:02 Dose: 20 meq Prednisone (Deltasone Tab*) 60 mg PO DAILY [facility] Last Admin: 04/01/19 09:02 Dose: 60 mg Tramadol HCl (Ultram*) 50 mg PO Q6HR PRN PRN Reason: PAIN Vital Signs - 8 hr 04/01/19 04/01/19 04/01/19 09:06 09:25 09:44 Temperature Pulse Rate 83 Respiratory Rate Blood Pressure 91/65 98/68 100/76 (mmHg) O2 Sat by Pulse Oximetry 04/01/19 04/01/19 04/01/19 11:06 11:08 11:21 Temperature Pulse Rate Respiratory Rate Blood Pressure 102/68 114/58 112/79 (mmHg) O2 Sat by Pulse Oximetry 04/01/19 04/01/19 04/01/19 11:24 11:27 11:31 Temperature 97.9 F Pulse Rate 40 Respiratory Rate Blood Pressure 88/75 106/69 (mmHg) O2 Sat by Pulse 93 Oximetry 04/01/19 04/01/19 04/01/19 11:36 11:41 11:46 Temperature Pulse Rate Respiratory Rate Blood Pressure 106/63 99/67 93/63 (mmHg) O2 Sat by Pulse Oximetry 04/01/19 04/01/19 04/01/19 11:51 11:56 12:01 Temperature Pulse Rate Respiratory Rate Blood Pressure 94/71 97/67 103/74 (mmHg) O2 Sat by Pulse Oximetry 04/01/19 04/01/19 04/01/19 12:06 12:13 12:16 Temperature Pulse Rate Respiratory Rate Blood Pressure 98/73 98/66 110/73 (mmHg) O2 Sat by Pulse Oximetry 04/01/19 04/01/19 04/01/19 12:21 12:26 12:31 Temperature Pulse Rate Respiratory Rate Blood Pressure 103/72 104/65 104/80 (mmHg) O2 Sat by Pulse Oximetry 04/01/19 04/01/19 04/01/19 12:37 12:42 12:46 Temperature Pulse Rate Respiratory Rate Blood Pressure 105/73 73/64 93/63 (mmHg) O2 Sat by Pulse Oximetry 04/01/19 04/01/19 04/01/19 12:49 13:12 13:48 Temperature Pulse Rate Respiratory 16 Rate Blood Pressure 99/61 93/64 (mmHg) O2 Sat by Pulse Oximetry 04/01/19 04/01/19 04/01/19 14:11 14:41 15:02 Temperature Pulse Rate Respiratory 18 Rate Blood Pressure 94/74 95/65 (mmHg) O2 Sat by Pulse Oximetry 04/01/19 04/01/19 04/01/19 15:10 15:11 15:28 Temperature 97.5 F Pulse Rate 83 Respiratory 18 Rate Blood Pressure 100/68 (mmHg) O2 Sat by Pulse 98 Oximetry 04/01/19 15:36 Temperature Pulse Rate Respiratory Rate Blood Pressure 101/70 (mmHg) O2 Sat by Pulse Oximetry Oxygen Devices in Use Now: None Appearance: Pleasant lady sitting up in bed in NAD. Eyes: No Scleral Icterus Ears/Nose/Mouth/Throat: Mucous Membranes Moist Neck: Trachea Midline Respiratory: Symmetrical Chest Expansion and Respiratory Effort, Clear to Auscultation Cardiovascular: - - Normal S1 and S2, irregularly irregular Extremities: - - No edema Neurological: Alert and Oriented x 3, NL Muscle Strength and Tone Result Diagrams: 04/01/19 11:10 03/31/19 05:50 Assess/Plan/Problems-Billing Assessment: Mrs Soto is a 63 yo F with PMH of Marfan's syndrome, thoracic aortic aneurysm , recent diagnosis of ITP, PAF, who presented to ED with c/o shoulder pain, here with recurrent Afib. - Patient Problems (1) Atrial fibrillation with rapid ventricular response Comment: - Cardiology consult appreciated. - Plan for rate control at this time - will increase Diltiazem and Metoprolol PO , and d/c Diltiazem drip. - D/w Hematology (Dr Coyle) 03/30/19 - as her platelet count is improving, she can be anticoagulated, so started on Apixaban. - Plan is for rate control and cardioversion next week, and starting Tykosyn or Flecainide after. - May be able to go home for the weekend if we're able to rate control her with PO meds; if not, will have to stay in the hospital for cardioversion. (2) Thrombocytopenia Comment: - Secondary to ITP. - Platelets up to 76. - Continue prednisone 60mg/day. - As per Hematology recommendation, will receive Rituxan infusion today. (3) Lactic acid blood increased Comment: - Due to poor perfusion in the setting of Afib RVR - now resolved. (4) Thrombophlebitis leg superficial Comment: - LE doppler negative for DVT, shows only superficial thrombophlebitis. - Continue supportive care. (5) Full code status Status and Disposition: Inpatient.
--- NOTE | 2019-04-01 18:02 | PN ---
Progress Note - Progress Note Date of Service: 04/01/19 SOAP: Subjective: [Reports that she is feeling relatively well. Still struggling to obtain appropriate rate control of her a fib.] Objective: [ Laboratory Results - last 24 hr 04/01/19 11:10 WBC 15.7 H RBC 4.63 Hgb 13.3 Hct 41 MCV 90 MCH 29 MCHC 32 RDW 16 H Plt Count 76 L D MPV 11.1 H Neut % (Auto) 81.9 Lymph % (Auto) 8.5 [place] % (Auto) 8.7 Eos % (Auto) 0.7 Baso % (Auto) 0.2 Absolute Neuts (auto) 12.9 H Absolute Lymphs (auto) 1.3 Absolute Monos (auto) 1.4 H Absolute Eos (auto) 0.1 Absolute Basos (auto) 0.0 Absolute Nucleated RBC 0.0 Nucleated RBC % 0.0 Apixaban (Eliquis*) 5 mg PO BID [facility] Last Admin: 04/01/19 09:02 Dose: 5 mg Cyanocobalamin (Vitamin B12 Tab*) 1,000 mcg PO DAILY [facility] Last Admin: 04/01/19 09:02 Dose: 1,000 mcg Diltiazem HCl (Cardizem Cd Cap*) 180 mg PO DAILY [facility] Last Admin: 04/01/19 09:49 Dose: Not Given Levothyroxine Sodium (Synthroid Tab*) 100 mcg PO DAILY@0600 [facility] Last Admin: 04/01/19 05:04 Dose: 100 mcg Magnesium Oxide (Magox 400 Tab*) 400 mg PO BID [facility] Last Admin: 04/01/19 09:02 Dose: 400 mg Metoprolol Tartrate (Lopressor Tab*) 50 mg PO Q12H [facility] Last Admin: 04/01/19 17:48 Dose: 50 mg Potassium Chloride (Klor Con Er Tab*) 20 meq PO BID [facility] Last Admin: 04/01/19 09:02 Dose: 20 meq Prednisone (Deltasone Tab*) 60 mg PO DAILY [facility] Last Admin: 04/01/19 09:02 Dose: 60 mg Tramadol HCl (Ultram*) 50 mg PO Q6HR PRN PRN Reason: PAIN Vital Signs: Temp Pulse Resp BP Pulse Ox 99.1 F 136 18 76/62 98 04/01/19 17:31 04/01/19 17:31 04/01/19 17:42 04/01/19 17:42 04/01/19 17:31 Exam: Gen: well appearing, in NAD HEENT: MMM CV: mildly tachy, irregularly irregular Resp: CTA Abd: soft ] Assessment: [63 yo female with recent diagnosis of ITP, refractory to high dose steroids and IVIG who was recently started on weeklly rituximab. She has a long history of afib and now been admitted for afib with RVR.] Plan: [1. Afib - management per hospitalist and cardiology - ok to anticoagulate 2. ITP - appears to be responding well to initial rituximab, plts are 76K today - 1st rituximab was 03/25 with plans for a total of 4 cycles given once weekly - due to her anticoagulation needs it is pertinent to continue her rituximab as scheduled to avoid worsening thrombocytopenia - give rituximab today, 375 mg/m2 - start taper of prednisone, decreasing to 50 mg daily - plan to taper by 10 mg weekly Dispo: per hospitalist, hematology will continue to follow along
[2019-04-02] MEDS: Levothyroxine TAB* 100 MCG TAB PO SCH (06:03)
[2019-04-02] MEDS: Potassium Chlor TAB* 20 MEQ TAB.ER PO SCH ×2 (09:00→19:39)
[2019-04-02] MEDS: predniSONE TAB* 20 MG PO SCH (09:00)
[2019-04-02] MEDS: Diltiazem CD CAP* 180 MG PO SCH (09:00)
[2019-04-02] MEDS: Magnesium Oxide TAB* 400 MG PO SCH ×2 (09:00→19:39)
[2019-04-02] MEDS: Apixaban* 5 MG TAB PO SCH ×2 (09:01→19:39)
[2019-04-02] MEDS: Cyanocobalamin TAB* 500 MCG PO SCH (09:01)
[2019-04-02] MEDS: Metoprolol Tartrate TAB* 50 mg PO SCH ×2 (09:01→19:39)
--- NOTE | 2019-04-02 09:03 | PN ---
Subjective Date of Service: 04/02/19 Interval History: HD # 5 on 04/02 63 yo F with PMH marfan, TAA, newly dx ITP, PAF who presented with shoulder pain with recurrent Afib with RVR. Overnight no acute events, VSS, remains in fib on low 100s on tele, as low as 80s while sleeping. Labs: not done Started on apixaban yesterday, on oral Dilt and metop for rate control, also s/ p Rituxan infusion x1 for ITP yesterday, apparently plan to try cardioversion and different rhythm control oral later this week. This morning-doing well, still some symptomatic palps but otherwise pleasant and well. Mild plain at superficial thrombophlebitis site. No chest pain, no shortness of breath, tolerating diet. Family History: Unchanged from Admission Social History: Unchanged from Admission Past Medical History: Unchanged from Admission Objective Active Medications: Apixaban (Eliquis*) 5 mg PO BID [facility] Last Admin: 04/01/19 21:44 Dose: 5 mg Cyanocobalamin (Vitamin B12 Tab*) 1,000 mcg PO DAILY [facility] Last Admin: 04/01/19 09:02 Dose: 1,000 mcg Diltiazem HCl (Cardizem Cd Cap*) 180 mg PO DAILY [facility] Last Admin: 04/01/19 09:49 Dose: Not Given Levothyroxine Sodium (Synthroid Tab*) 100 mcg PO DAILY@0600 [facility] Last Admin: 04/02/19 06:03 Dose: 100 mcg Magnesium Oxide (Magox 400 Tab*) 400 mg PO BID [facility] Last Admin: 04/01/19 21:44 Dose: 400 mg Metoprolol Tartrate (Lopressor Tab*) 50 mg PO Q12H [facility] Last Admin: 04/01/19 19:07 Dose: Not Given Potassium Chloride (Klor Con Er Tab*) 20 meq PO BID [facility] Last Admin: 04/01/19 21:44 Dose: 20 meq Prednisone (Deltasone Tab*) 60 mg PO DAILY [facility] Last Admin: 04/01/19 09:02 Dose: 60 mg Tramadol HCl (Ultram*) 50 mg PO Q6HR PRN PRN Reason: PAIN Vital Signs - 8 hr 04/02/19 04/02/19 04/02/19 01:01 01:41 02:01 Temperature Pulse Rate Respiratory 18 15 17 Rate Blood Pressure 117/75 (mmHg) O2 Sat by Pulse Oximetry 04/02/19 04/02/19 04/02/19 03:00 03:41 03:54 Temperature 97.1 F Pulse Rate Respiratory 18 18 16 Rate Blood Pressure 111/70 (mmHg) O2 Sat by Pulse 99 Oximetry 04/02/19 04/02/19 04/02/19 04:00 05:00 05:41 Temperature Pulse Rate Respiratory 17 18 17 Rate Blood Pressure 122/80 (mmHg) O2 Sat by Pulse Oximetry 04/02/19 04/02/19 06:00 07:20 Temperature 97.5 F Pulse Rate 68 Respiratory 14 Rate Blood Pressure (mmHg) O2 Sat by Pulse 98 Oximetry Oxygen Devices in Use Now: None Appearance: Pleasant woman reading in bed in NAD Eyes: No Scleral Icterus, PERRLA Ears/Nose/Mouth/Throat: NL Teeth, Lips, Gums Neck: NL Appearance and Movements; NL JVP Respiratory: Clear to Auscultation Cardiovascular: - - irreg irreg no murmur Abdominal: NL Sounds; No Tenderness; No Distention, No Hepatosplenomegaly Lymphatic: No Cervical Adenopathy Skin: No Rash or Ulcers, - - Mild thrombophelbitis on upper L thigh Neurological: Alert and Oriented x 3 Result Diagrams: 04/02/19 09:01 03/31/19 05:50 Additional Lab and Data: Laboratory Tests 03/29/19 03/29/19 03/29/19 15:40 15:40 15:59 Glucose 150 H Lactic Acid 3.7 H* AST 25 ALT 41 B-Natriuretic Peptide 874 H Albumin 4.0 Diagnostic Imaging: CT Chest/abdo/pelvis: 2.9 cm AAA, no significant findings EKG Data: A-fib, rapid ventricular response at 135 bpm on admission Tele fib in rates 100s overnight 04/02 Assess/Plan/Problems-Billing Assessment: 63 yo F with PMH of Marfan's syndrome, thoracic aortic aneurysm, recent diagnosis of ITP, PAF, who presented to ED with c/o shoulder pain, here with recurrent Afib. - Patient Problems (1) Atrial fibrillation with rapid ventricular response Current Visit: Yes Status: Acute Priority: High Code(s): I48.91 - UNSPECIFIED ATRIAL FIBRILLATION SNOMED Code(s): 472932467642026 Comment: - Cardiology consult appreciated. - PO dilt 180 CD and Metop 50 BID - D/w Hematology (Dr Coyle) 03/30/19 - as her platelet count is improving, she can be anticoagulated, so started on Apixaban 04/01 - Plan is for rate control and cardioversion next week, and starting Tykosyn or Flecainide after. (2) Thrombocytopenia Current Visit: Yes Status: Chronic Priority: Medium Code(s): D69.6 - THROMBOCYTOPENIA, UNSPECIFIED SNOMED Code(s): 492465539 Comment: - Secondary to ITP. - Platelets up to 76. - Continue prednisone now at 50mg daily and dose reduce 10mg weekly, 40mg starting 04/09 - As per Hematology recommendation, will receive Rituxan infusions as scheduled (3) Thrombophlebitis leg superficial Current Visit: Yes Status: Acute Code(s): I80.00 - PHLBTS AND THOMBOPHLB OF SUPERFIC VESSELS OF UNSP LOW EXTRM SNOMED Code(s): 14667993 Comment: - LE doppler negative for DVT, shows only superficial thrombophlebitis. - Continue supportive care. (4) Marfan's syndrome Current Visit: No Status: Chronic Code(s): Q87.40 - MARFAN'S SYNDROME, UNSPECIFIED SNOMED Code(s): 94087525 Comment: - Continue outpatient follow-up with PCP. (5) Hypothyroidism Current Visit: No Status: Chronic Code(s): E03.9 - HYPOTHYROIDISM, UNSPECIFIED SNOMED Code(s): 38936466 Comment: - Continue levothyroxine (6) DVT prophylaxis Current Visit: No Status: Acute Priority: Low Code(s): OQX9574 - SNOMED Code(s): 627784526 Comment: -Apixaban (7) Full code status Current Visit: Yes Status: Acute Code(s): Z78.9 - OTHER SPECIFIED HEALTH STATUS SNOMED Code(s): 713657743 Status and Disposition: Inpatient. Pt updating family herself
[2019-04-02 09:21] LABS: ABS Eosinophils 0.1 10^3/ul (0-0.6); ABS Lymphocytes 1.7 10^3/ul (1.0-4.8); ABS Monocytes 0.6 10^3/ul (0-0.8); ABS Neutrophils 7.7 10^3/ul (1.5-7.7); Eosinophil % 0.8 %; Hematocrit 44 % (35-47); Hemoglobin 14.1 g/dL (12.0-16.0); Mean Corpuscular HGB Conc 32 g/dL (31-36); Mean Corpuscular Hemoglobin 29 pg (27-31); Mean Corpuscular Volume 91 fL (80-97); Mean Platelet Volume 10.3 fL (7.4-10.4); Platelet Count 114 10^3/uL (150-450); Red Blood Count 4.84 10^6 /uL (3.70-4.87); Red Cell Distribution Width 16 % (10.5-15); White Blood Count 10.1 10^3/uL (3.5-10.8)
[2019-04-02] MEDS ORDERED: Lidocaine 4% GEL* 10 GM TUBE TOPICAL PRN (10:17)
[2019-04-02] MEDS ORDERED: Acetaminophen TAB* 325 MG PO PRN (10:19)
[2019-04-03] MEDS: Levothyroxine TAB* 100 MCG TAB PO SCH (05:30)
[2019-04-03 06:52] LABS: ABS Eosinophils 0.1 10^3/ul (0-0.6); ABS Lymphocytes 1.7 10^3/ul (1.0-4.8); ABS Monocytes 1.1 10^3/ul (0-0.8); ABS Neutrophils 6.3 10^3/ul (1.5-7.7); Eosinophil % 0.8 %; Hematocrit 40 % (35-47); Hemoglobin 13.2 g/dL (12.0-16.0); Lymphocyte % 18.2 %; Mean Corpuscular HGB Conc 33 g/dL (31-36); Mean Corpuscular Hemoglobin 30 pg (27-31); Mean Corpuscular Volume 89 fL (80-97); Mean Platelet Volume 10.2 fL (7.4-10.4); Platelet Count 97 10^3/uL (150-450); Red Blood Count 4.45 10^6 /uL (3.70-4.87); Red Cell Distribution Width 16 % (10.5-15); White Blood Count 9.2 10^3/uL (3.5-10.8)
[2019-04-03 07:07] LABS: BUN/Creatinine Ratio 32.8 (8-20); Calcium 8.6 mg/dL (8.6-10.3); EGFR African American 127.5 (>60); EGFR Non-African American 105.3 (>60); Potassium 4.1 mmol/L (3.5-5.0)
--- NOTE | 2019-04-03 09:05 | PN ---
Subjective Date of Service: 04/03/19 Interval History: HD # 6 on 04/04 63 yo F with PMH marfan, TAA, newly dx ITP, PAF who presented with shoulder pain with recurrent Afib with RVR. Overnight no acute events, VSS, remains in fib on low 100s on tele, as low as 80s while sleeping. Labs: Plt 97, stable Started on apixaban on oral Dilt and metop for rate control, also s/p Rituxan infusion x1 for ITP Sunday 04/01, apparently plan to try cardioversion and different rhythm control Thursday, NPO at midnight for this plan This morning-doing well, some fatigue No chest pain, no shortness of breath, tolerating diet. Family History: Unchanged from Admission Social History: Unchanged from Admission Past Medical History: Unchanged from Admission Objective Active Medications: Acetaminophen (Tylenol Tab*) 650 mg PO Q6H PRN PRN Reason: FEVER/PAIN Apixaban (Eliquis*) 5 mg PO BID [facility] Last Admin: 04/02/19 19:39 Dose: 5 mg Cyanocobalamin (Vitamin B12 Tab*) 1,000 mcg PO DAILY [facility] Last Admin: 04/02/19 09:01 Dose: 1,000 mcg Diltiazem HCl (Cardizem Cd Cap*) 180 mg PO DAILY [facility] Last Admin: 04/02/19 09:00 Dose: 180 mg Levothyroxine Sodium (Synthroid Tab*) 100 mcg PO DAILY@0600 [facility] Last Admin: 04/03/19 05:30 Dose: 100 mcg Lidocaine (Topicaine 4% Gel*) 1 applic TOPICAL BID PRN PRN Reason: PAIN - MODERATE Magnesium Oxide (Magox 400 Tab*) 400 mg PO BID [facility] Last Admin: 04/02/19 19:39 Dose: 400 mg Metoprolol Tartrate (Lopressor Tab*) 50 mg PO Q12H [facility] Last Admin: 04/02/19 19:39 Dose: 50 mg Potassium Chloride (Klor Con Er Tab*) 20 meq PO BID [facility] Last Admin: 04/02/19 19:39 Dose: 20 meq Prednisone (Deltasone Tab*) 50 mg PO DAILY [facility] Tramadol HCl (Ultram*) 50 mg PO Q6HR PRN PRN Reason: PAIN Vital Signs - 8 hr 04/03/19 04/03/19 04/03/19 03:07 03:15 07:10 Temperature 97.6 F 97.7 F Pulse Rate 35 71 89 Respiratory 16 16 Rate Blood Pressure 109/76 110/69 (mmHg) O2 Sat by Pulse 99 97 Oximetry Oxygen Devices in Use Now: None Appearance: Pleasant woman in NAD Ears/Nose/Mouth/Throat: NL Teeth, Lips, Gums Neck: NL Appearance and Movements; NL JVP, Trachea Midline Respiratory: Symmetrical Chest Expansion and Respiratory Effort, Clear to Auscultation Cardiovascular: NL Sounds; No Murmurs; No JVD, RRR Abdominal: NL Sounds; No Tenderness; No Distention, No Hepatosplenomegaly Lymphatic: No Cervical Adenopathy Extremities: No Edema Skin: No Rash or Ulcers Neurological: Alert and Oriented x 3 Result Diagrams: 04/03/19 06:22 04/03/19 06:22 Additional Lab and Data: Laboratory Tests 03/29/19 03/29/19 03/29/19 15:40 15:40 15:59 Glucose 150 H Lactic Acid 3.7 H* AST 25 ALT 41 B-Natriuretic Peptide 874 H Albumin 4.0 Diagnostic Imaging: CT Chest/abdo/pelvis: 2.9 cm AAA, no significant findings EKG Data: A-fib, rapid ventricular response at 135 bpm on admission Tele fib in rates 100s overnight 04/02 Assess/Plan/Problems-Billing Assessment: 63 yo F with PMH of Marfan's syndrome, thoracic aortic aneurysm, recent diagnosis of ITP, PAF, who presented to ED with c/o shoulder pain, here with recurrent Afib. - Patient Problems (1) Atrial fibrillation with rapid ventricular response Current Visit: Yes Status: Acute Priority: High Code(s): I48.91 - UNSPECIFIED ATRIAL FIBRILLATION SNOMED Code(s): 361630865754876 Comment: - Cardiology consult appreciated. - PO dilt 180 CD and Metop 50 BID - D/w Hematology (Dr Coyle) 03/30/19 - as her platelet count is improving, she can be anticoagulated, so started on Apixaban 04/01 - Plan is for rate control and cardioversion next week, and starting Tykosyn or Flecainide after. (2) Thrombocytopenia Current Visit: Yes Status: Chronic Priority: Medium Code(s): D69.6 - THROMBOCYTOPENIA, UNSPECIFIED SNOMED Code(s): 662494681 Comment: - Secondary to ITP. - Platelets increasing - Continue prednisone now at 50mg daily and dose reduce 10mg weekly, 40mg starting 04/09 - As per Hematology recommendation, will receive Rituxan infusions as scheduled (3) Thrombophlebitis leg superficial Current Visit: Yes Status: Acute Code(s): I80.00 - PHLBTS AND THOMBOPHLB OF SUPERFIC VESSELS OF UNSP LOW EXTRM SNOMED Code(s): 63103415 Comment: - LE doppler negative for DVT, shows only superficial thrombophlebitis. - Continue supportive care. (4) Marfan's syndrome Current Visit: No Status: Chronic Code(s): Q87.40 - MARFAN'S SYNDROME, UNSPECIFIED SNOMED Code(s): 33998543 Comment: - Continue outpatient follow-up with PCP. (5) Hypothyroidism Current Visit: No Status: Chronic Code(s): E03.9 - HYPOTHYROIDISM, UNSPECIFIED SNOMED Code(s): 58850387 Comment: - Continue levothyroxine (6) DVT prophylaxis Current Visit: No Status: Acute Priority: Low Code(s): YMV9670 - SNOMED Code(s): 454205204 Comment: -Apixaban (7) Full code status Current Visit: Yes Status: Acute Code(s): Z78.9 - OTHER SPECIFIED HEALTH STATUS SNOMED Code(s): 314333426 Status and Disposition: Inpatient. Pt updating family herself, NPO at midnight
[2019-04-03] MEDS: predniSONE TAB* 20 MG PO SCH (09:17)
[2019-04-03] MEDS: Metoprolol Tartrate TAB* 50 mg PO SCH ×2 (09:17→20:04)
[2019-04-03] MEDS: Cyanocobalamin TAB* 500 MCG PO SCH (09:17)
[2019-04-03] MEDS: Magnesium Oxide TAB* 400 MG PO SCH ×2 (09:19→20:04)
[2019-04-03] MEDS: Diltiazem CD CAP* 180 MG PO SCH (09:19)
[2019-04-03] MEDS: Apixaban* 5 MG TAB PO SCH ×2 (09:19→20:04)
[2019-04-03] MEDS: Potassium Chlor TAB* 20 MEQ TAB.ER PO SCH ×2 (09:19→20:04)
[2019-04-03] MEDS: Calcium/Vitamin D TAB 250/125* TAB PO SCH (20:04)
[2019-04-04] MEDS: Levothyroxine TAB* 100 MCG TAB PO SCH (05:46)
[2019-04-04 07:27] LABS: ABS Eosinophils 0.1 10^3/ul (0-0.6); ABS Lymphocytes 1.7 10^3/ul (1.0-4.8); ABS Monocytes 1.1 10^3/ul (0-0.8); ABS Neutrophils 6.4 10^3/ul (1.5-7.7); Hematocrit 40 % (35-47); Hemoglobin 13.1 g/dL (12.0-16.0); Lymphocyte % 18.1 %; Mean Corpuscular HGB Conc 33 g/dL (31-36); Mean Corpuscular Hemoglobin 29 pg (27-31); Mean Corpuscular Volume 90 fL (80-97); Mean Platelet Volume 10.5 fL (7.4-10.4); Nucleated Red Blood Cells % 0.1; Platelet Count 112 10^3/uL (150-450); Red Blood Count 4.45 10^6 /uL (3.70-4.87); Red Cell Distribution Width 16 % (10.5-15); White Blood Count 9.3 10^3/uL (3.5-10.8)
[2019-04-04] MEDS: Metoprolol Tartrate TAB* 50 mg PO SCH ×2 (07:59→21:31)
[2019-04-04] MEDS: predniSONE TAB* 20 MG PO SCH (07:59)
[2019-04-04] MEDS: Apixaban* 5 MG TAB PO SCH ×2 (08:00→21:30)
[2019-04-04] MEDS: Magnesium Oxide TAB* 400 MG PO SCH ×2 (08:00→21:30)
[2019-04-04] MEDS: Diltiazem CD CAP* 180 MG PO SCH (08:00)
[2019-04-04] MEDS: Potassium Chlor TAB* 20 MEQ TAB.ER PO SCH ×2 (08:00→21:30)
[2019-04-04] MEDS: Calcium/Vitamin D TAB 250/125* TAB PO SCH ×2 (08:00→21:30)
[2019-04-04] MEDS: Cyanocobalamin TAB* 500 MCG PO SCH (08:01)
--- NOTE | 2019-04-04 08:26 | PN ---
Subjective Date of Service: 04/04/19 Interval History: HD # 6 on 04/04 63 yo F with PMH marfan, TAA, newly dx ITP, PAF who presented with shoulder pain with recurrent Afib with RVR. Overnight no acute events, VSS, remains in fib on low 100s on tele, as low as 80s while sleeping. Labs: Plt 112, improving. This morning-seen just prior to going for BUDDY, no complaints Family History: Unchanged from Admission Social History: Unchanged from Admission Past Medical History: Unchanged from Admission Objective Active Medications: Acetaminophen (Tylenol Tab*) 650 mg PO Q6H PRN PRN Reason: FEVER/PAIN Apixaban (Eliquis*) 5 mg PO BID [facility] Last Admin: 04/04/19 08:00 Dose: 5 mg Calcium/Vitamin D (Oscal D Tab 250/125*) 1 tab PO BID [facility] Last Admin: 04/04/19 08:00 Dose: 1 tab Cyanocobalamin (Vitamin B12 Tab*) 1,000 mcg PO DAILY [facility] Last Admin: 04/04/19 08:01 Dose: 1,000 mcg Diltiazem HCl (Cardizem Cd Cap*) 180 mg PO DAILY [facility] Last Admin: 04/04/19 08:00 Dose: 180 mg Levothyroxine Sodium (Synthroid Tab*) 100 mcg PO DAILY@0600 [facility] Last Admin: 04/04/19 05:46 Dose: Not Given Lidocaine (Topicaine 4% Gel*) 1 applic TOPICAL BID PRN PRN Reason: PAIN - MODERATE Magnesium Oxide (Magox 400 Tab*) 400 mg PO BID [facility] Last Admin: 04/04/19 08:00 Dose: 400 mg Metoprolol Tartrate (Lopressor Tab*) 50 mg PO Q12H [facility] Last Admin: 04/04/19 07:59 Dose: 50 mg Potassium Chloride (Klor Con Er Tab*) 20 meq PO BID [facility] Last Admin: 04/04/19 08:00 Dose: 20 meq Prednisone (Deltasone Tab*) 50 mg PO DAILY [facility] Last Admin: 04/04/19 07:59 Dose: 50 mg Tramadol HCl (Ultram*) 50 mg PO Q6HR PRN PRN Reason: PAIN Vital Signs - 8 hr 04/04/19 03:10 Temperature 97.4 F Pulse Rate 85 Respiratory 18 Rate Blood Pressure 120/83 (mmHg) O2 Sat by Pulse 99 Oximetry Oxygen Devices in Use Now: None Appearance: Well woman in wheelchair Ears/Nose/Mouth/Throat: NL Teeth, Lips, Gums, Mucous Membranes Moist Neck: NL Appearance and Movements; NL JVP Respiratory: Symmetrical Chest Expansion and Respiratory Effort Cardiovascular: NL Sounds; No Murmurs; No JVD Abdominal: NL Sounds; No Tenderness; No Distention Lymphatic: No Cervical Adenopathy Extremities: No Edema Skin: No Rash or Ulcers Neurological: Alert and Oriented x 3 Result Diagrams: 04/04/19 06:50 04/03/19 06:22 Additional Lab and Data: Laboratory Tests 03/29/19 03/29/19 03/29/19 15:40 15:40 15:59 Glucose 150 H Lactic Acid 3.7 H* AST 25 ALT 41 B-Natriuretic Peptide 874 H Albumin 4.0 Diagnostic Imaging: CT Chest/abdo/pelvis: 2.9 cm AAA, no significant findings EKG Data: A-fib, rapid ventricular response at 135 bpm on admission Tele fib in rates 100s overnight 04/02 Assess/Plan/Problems-Billing Assessment: 63 yo F with PMH of Marfan's syndrome, thoracic aortic aneurysm, recent diagnosis of ITP, PAF, who presented to ED with c/o shoulder pain, here with recurrent Afib. - Patient Problems (1) Atrial fibrillation with rapid ventricular response Current Visit: Yes Status: Acute Priority: High Code(s): I48.91 - UNSPECIFIED ATRIAL FIBRILLATION SNOMED Code(s): 283813749349285 Comment: - Cardiology consult appreciated. - PO dilt 180 CD and Metop 50 BID - D/w Hematology (Dr Coyle) 03/30/19 - as her platelet count is improving, she can be anticoagulated, so started on Apixaban 04/01 - Plan is for rate control and cardioversion today, starting Tikosyn and monitoring (2) Thrombocytopenia Current Visit: Yes Status: Chronic Priority: Medium Code(s): D69.6 - THROMBOCYTOPENIA, UNSPECIFIED SNOMED Code(s): 415292781 Comment: - Secondary to ITP. - Platelets increasing - Continue prednisone now at 50mg daily and dose reduce 10mg weekly, 40mg starting 04/09 - As per Hematology recommendation, will receive Rituxan infusions as scheduled (3) Thrombophlebitis leg superficial Current Visit: Yes Status: Acute Code(s): I80.00 - PHLBTS AND THOMBOPHLB OF SUPERFIC VESSELS OF UNSP LOW EXTRM SNOMED Code(s): 50352891 Comment: - LE doppler negative for DVT, shows only superficial thrombophlebitis. - Continue supportive care. (4) Marfan's syndrome Current Visit: No Status: Chronic Code(s): Q87.40 - MARFAN'S SYNDROME, UNSPECIFIED SNOMED Code(s): 67983883 Comment: - Continue outpatient follow-up with PCP. (5) Hypothyroidism Current Visit: No Status: Chronic Code(s): E03.9 - HYPOTHYROIDISM, UNSPECIFIED SNOMED Code(s): 97055099 Comment: - Continue levothyroxine (6) DVT prophylaxis Current Visit: No Status: Acute Priority: Low Code(s): HDL9188 - SNOMED Code(s): 788799365 Comment: -Apixaban (7) Full code status Current Visit: Yes Status: Acute Code(s): Z78.9 - OTHER SPECIFIED HEALTH STATUS SNOMED Code(s): 001543355 Status and Disposition: [facility]
[2019-04-04] MEDS ORDERED: Midazolam* 1 MG/ML 5 ML VIAL (5 MG) ONE (08:32)
[2019-04-04] MEDS ORDERED: Naloxone* 0.4 MG/ML 1 ML VIAL ONE (08:33)
[2019-04-04] MEDS ORDERED: Lidocaine 2% VISCOUS* 15 ML UDC ONE (08:33)
[2019-04-04] MEDS ORDERED: fentaNYL* 50 MCG/ML 2 ML VIAL (100 MCG VIAL) ONE (08:33)
[2019-04-04] MEDS ORDERED: Flumazenil* 0.1 MG/ML 5 ML MDV ONE (08:33)
[2019-04-04 12:59] LABS: BUN/Creatinine Ratio 26.9 (8-20); Calcium 8.6 mg/dL (8.6-10.3); EGFR African American 90.6 (>60); EGFR Non-African American 74.8 (>60); Potassium 4.2 mmol/L (3.5-5.0)
[2019-04-04] MEDS: Dofetilide CAP* 500 MCG PO SCH ×2 (13:01→21:30)
--- NOTE | 2019-04-04 13:39 | TEE ---
*[facility]* [place] [address] Fax #: [phone] Transesophageal Echocardiogram Patient: Brittany, Height: 70 in / Carrie Islas 177.8 cm : 1955 Weight: 160 lb / Study Date: 04/04/2019 72.7 kg Age: 63 BP: 95 / 55 Gender: F BMI/BSA: 23 kg/m^2 / HR: 93 bpm 1.9 m^2 *[employer]: * Debra Montejo [facility] *Referring Physician: * Edson Smith MD *Reading Physician: * Edson Smith MD Indications: Atrial Fibrillation. History: Marfans, dilated ascending AO. Mitral prolapse. Mitral regurgitation. Conclusions Summary: 1. Left ventricle: Systolic function is normal. The estimated ejection fraction is 50-55%. 2. Left atrium: There is no left atrial appendage thrombus. 3. Atrial septum: Bubble study (negative) performed on previous transesophageal echocardiogram. 4. Mitral valve: There is moderate regurgitation. 5. Aortic valve: There is no evidence of stenosis. 6. Tricuspid valve: There is mild regurgitation. 7. Pericardium, extracardiac: There is no significant pericardial effusion. Study data: Consent: The risks and benefits of the procedure, including alternatives were discussed with the patient and/or their health care account retention representative and written informed consent was obtained. Procedure: Initial setup: The patient was brought to the laboratory in the fasting state.Intravenous access was obtained. Surface ECG leads, heart rate , heart rhythm , blood pressure measurements, pulse oximetric signals, and mainstream end-tidal CO2 tracings were monitored throughout the procedure. Initial setup: The patient was brought to the laboratory in the fasting state.Intravenous access was obtained. Surface ECG leads, heart rate , heart rhythm , blood pressure measurements, pulse oximetric signals, and mainstream end-tidal CO2 tracings were monitored throughout the procedure. Initial setup: The patient was brought to the laboratory in the fasting state.Intravenous access was obtained. Surface ECG leads, heart rate , heart rhythm , blood pressure measurements, pulse oximetric signals, and mainstream end-tidal CO2 tracings were monitored throughout the procedure. Sedation. Moderate sedation was administered by nursing staff. Sedation. Moderate sedation was administered by nursing staff. Sedation. Moderate sedation was administered by nursing staff. History and physical as well as labs were reviewed. An oral bite block was inserted for protection of oral dentition. The patient was placed in the left lateral decubitus position.. Topical anesthesia was obtained using viscous lidocaine. A transesophageal probe was inserted by the attending production supply equipment tender. Transesophageal echocardiography was performedImage quality was excellent. , all standard views were attempted within the limitations of patient tolerance and safety. Multiple 2D, color flow Doppler and spectral Doppler images were obtained. The transesophageal probe was removed. Location: Procedure room. Patient status: Inpatient. Patient room number: 442. Study completion: The patient tolerated the procedure well. There were no complications. Administered medications: Midazolam, 4mg. Fentanyl, 50mcg. Rhythm: Atrial fibrillation. Findings Left ventricle: The cavity size is normal. Systolic function is normal. The estimated ejection fraction is 50-55%. Left ventricular diastolic function parameters are indeterminate. Right ventricle: The cavity size is normal. Systolic function is normal. Left atrium: The atrium is moderately dilated. There is no left atrial appendage thrombus. Right atrium: The atrium is mildly dilated. Atrial septum: Bubble study (negative) performed on previous transesophageal echocardiogram. A PFO is not demonstrated by color Doppler. Mitral valve: The leaflets are mildly thickened. Moderate prolapse. There is no evidence of stenosis. There is moderate regurgitation. The peak diastolic gradient is 2.1 mm Hg. Aortic valve: The valve is structurally normal. The valve is trileaflet. Cusp separation is normal. There is no evidence of stenosis. There is mild regurgitation. Tricuspid valve: The valve is structurally normal. There is mild regurgitation. Pulmonic valve: The valve is structurally normal. There is trivial regurgitation. Aorta: Aortic root: The aortic root is moderately dilated. Ascending aorta: The ascending aorta is moderately dilated. Pericardium: There is no significant pericardial effusion. Pulmonary arteries: The main pulmonary artery is normal-sized. Systemic veins: Inferior vena cava: The vessel is normal in size. Superior vena cava: The vessel is appears normal. Pulmonary veins: The Pulmonary veins appear normal. Measurements Right ventricle Value Ref Tricuspid valve Value Ref Pressure, S 15 mm Hg ---- TR peak v 1.72 m/sec <=2.8 Peak RV-RA grad, S 12 mm Hg ----- Right atrium Value Ref Estimated RAP 3 mm Hg ---- Aortic root Value Ref Root diam 4.0 cm <4.1 Aortic valve Value Ref Kristina diam, ED 2.6 cm ---- Ascending aorta Value Ref AAo AP diam, S 4.1 cm ----- Mitral valve Value Ref Peak E 0.73 m/sec ---- Pulmonary artery Value Ref Peak A 0.03 m/sec ---- Pressure, S 15.0 mm Hg ----- Decel time 103 ms ---- Peak grad, D 2.1 mm Hg ---- Peak E/A ratio 26.9 ---- Legend: (L) and (H) gretchen values outside specified reference range. Prepared and electronically signed by Edson Smith MD 04/04/2019 13:39
--- NOTE | 2019-04-04 23:23 | CARD ---
CC: Dr. Arlen Henderson * CARDIOVERSION REPORT: DATE OF PROCEDURE: 04/04/19 PROCEDURE: Cardioversion. INDICATION: Atrial fibrillation. The patient is a 63-year-old female with a history of atrial fibrillation. She was admitted to the hospital with rapid ventricular response. She was observed over the weakened. BUDDY cardioversion was recommended by Dr. Henderson, her primary tutoring manager. The patient had just undergone transesophageal echocardiogram showing no evidence of thrombus in her left atrial appendage, cardioversion was recommended. DESCRIPTION OF PROCEDURE: The patient was in a fasting state. Informed consent had been obtained prior to the procedure. All labs were reviewed. The patient was previously sedated for the transesophageal echocardiogram, no additional sedation was given. The patient was cardioverted with 150 joules of synchronized biphasic energy. The patient converted to sinus bradycardia. The patient tolerated the procedure well with no complications. The patient will be continued in the hospital and initiated on Tikosyn therapy per protocol. [id number]/CPS #: [id number] MTDD
[2019-04-05] MEDS: Levothyroxine TAB* 100 MCG TAB PO SCH (06:28)
[2019-04-05] MEDS: predniSONE TAB* 20 MG PO SCH (09:01)
[2019-04-05] MEDS: Metoprolol Tartrate TAB* 50 mg PO SCH ×2 (09:01→20:23)
[2019-04-05] MEDS: Apixaban* 5 MG TAB PO SCH ×2 (09:02→20:22)
[2019-04-05] MEDS: Cyanocobalamin TAB* 500 MCG PO SCH (09:02)
[2019-04-05] MEDS: Potassium Chlor TAB* 20 MEQ TAB.ER PO SCH ×2 (09:02→20:21)
[2019-04-05] MEDS: Calcium/Vitamin D TAB 250/125* TAB PO SCH ×2 (09:02→20:22)
[2019-04-05] MEDS: Magnesium Oxide TAB* 400 MG PO SCH ×2 (09:02→20:22)
[2019-04-05] MEDS: Dofetilide CAP* 500 MCG PO SCH (10:12)
[2019-04-05 10:23] LABS: BUN/Creatinine Ratio 27.4 (8-20); Calcium 8.9 mg/dL (8.6-10.3); EGFR African American 97.7 (>60); EGFR Non-African American 80.8 (>60); Magnesium 1.8 mg/dL (1.9-2.7); Potassium 3.1 mmol/L (3.5-5.0)
--- NOTE | 2019-04-05 10:23 | PN ---
<Lety Reyes - Last Filed: 04/05/19 10:12> Subjective Date of Service: 04/05/19 - PAF s/p BUDDY/CV Tikosyn med load Interval History: Patient had a 13 beat count of monomorphic VT at 130 BPM at 1951 on 04/04/19. Patient states at that time she felt " off" but denies chest pain, dizziness, syncope, palpitations. Currently she is sitting in chair and offers no complaints. Medications Active Medications: Acetaminophen (Tylenol Tab*) 650 mg PO Q6H PRN PRN Reason: FEVER/PAIN Apixaban (Eliquis*) 5 mg PO BID [facility] Last Admin: 04/05/19 09:02 Dose: 5 mg Calcium/Vitamin D (Oscal D Tab 250/125*) 1 tab PO BID [facility] Last Admin: 04/05/19 09:02 Dose: 1 tab Cyanocobalamin (Vitamin B12 Tab*) 1,000 mcg PO DAILY [facility] Last Admin: 04/05/19 09:02 Dose: 1,000 mcg Levothyroxine Sodium (Synthroid Tab*) 100 mcg PO DAILY@0600 [facility] Last Admin: 04/05/19 06:28 Dose: 100 mcg Lidocaine (Topicaine 4% Gel*) 1 applic TOPICAL BID PRN PRN Reason: PAIN - MODERATE Magnesium Oxide (Magox 400 Tab*) 400 mg PO BID [facility] Last Admin: 04/05/19 09:02 Dose: 400 mg Metoprolol Tartrate (Lopressor Tab*) 50 mg PO Q12H [facility] Last Admin: 04/05/19 09:01 Dose: 50 mg Potassium Chloride (Klor Con Er Tab*) 20 meq PO BID [facility] Last Admin: 04/05/19 09:02 Dose: 20 meq Prednisone (Deltasone Tab*) 50 mg PO DAILY [facility] Last Admin: 04/05/19 09:01 Dose: 50 mg Tramadol HCl (Ultram*) 50 mg PO Q6HR PRN PRN Reason: PAIN Objective Vital Signs: Temp Pulse Resp BP Pulse Ox 98.1 F 46 14 111/66 100 04/05/19 08:02 04/05/19 08:02 04/05/19 08:02 04/05/19 08:02 04/05/19 08:02 Oxygen Devices in Use Now: None Appearance: well nourished, A+O x3, cooperative with exam Ears/Nose/Mouth/Throat: NL Teeth, Lips, Gums, Clear Oropharnyx, Mucous Membranes Moist Neck: NL Appearance and Movements; NL JVP Respiratory: Symmetrical Chest Expansion and Respiratory Effort, Clear to Auscultation Cardiovascular: NL Sounds; No Murmurs; No JVD, No Edema Abdominal: NL Sounds; No Tenderness; No Distention Extremities: No Edema Skin: No Rash or Ulcers Neurological: Alert and Oriented x 3 Lines/Tubes/Other Access: Clean, Dry and Intact Peripheral IV Laboratory Results: 04/04/19 06:50 04/04/19 12:20 Total Bilirubin 0.70 mg/dL (0.2-1.0) 03/29/19 15:40 AST 25 U/L (13-39) 03/29/19 15:40 ALT 41 U/L (7-52) 03/29/19 15:40 Alkaline Phosphatase 47 U/L (34-104) 03/29/19 15:40 B-Natriuretic Peptide 874 pg/mL (<=100) H 03/29/19 15:59 Total Protein 7.5 g/dL (6.4-8.9) 03/29/19 15:40 Albumin 4.0 g/dL (3.2-5.2) 03/29/19 15:40 Globulin 3.5 g/dL (2-4) 03/29/19 15:40 Albumin/Globulin Ratio 1.1 (1-3) 03/29/19 15:40 03/29/19 03/29/19 03/29/19 15:40 20:14 23:27 Troponin I 0.01 0.01 0.01 Laboratory Results - last 24 hr 04/04/19 04/05/19 12:20 09:40 Sodium 137 136 Potassium 4.2 3.1 L Chloride 105 101 Carbon Dioxide 27 27 Anion Gap 5 8 BUN 21 20 Creatinine 0.78 0.73 Est GFR ( Amer) 90.6 97.7 Est GFR (Non-Af Amer) 74.8 80.8 BUN/Creatinine Ratio 26.9 H 27.4 H Glucose 197 H 74 Calcium 8.6 8.9 Magnesium 2.0 1.8 L Diagnostic Imaging: BUDDY 04/04/2019; LVEF 50-55%, moderate MR, mild TR, no HUI clot per report. EKG Data: 04/05/2019; Sinus bradycardia rate 47; QT 506 Telemetry reviewed; 04/04/2019 at 1951 13 beat count of monomorphic VT at 130 BPM. Occasional VPCs since, Rate 50's Assessment/Plan #1 h/o PAF with break through AF despite Sotalol therapy.She underwent successful BUDDY/CV on 04/04/2019. Tikosyn started yesterday (04/04/2019) Last dose 04/04/2019 at 2130. At 1951 on 04/04/2019 patient had a 13 beat count of monomorphic VT at 130 BPM she reports feeling " off" at that time. Mag and K+ are normal. will d/c Tikosyn. Recommend monitoring patient for an addition 24 hours to eval for recurrent VT. Plan is to tentatively start Amiodarone on Thursday. Will update TFTS. Patient is on Eliquis and Plts are stable. Will continue Bblocker therapy at this time. #2 h/o ITP Follows Heme. On rituxan next dose due Thursday. Plts stable. Patient may need splenectomy in a month per heme notes. #3 Monomorphic VT; Occured after Tikosyn med load after second dose. Tikosyn discontinued. Will monitor for recurrent arrhythmias. #4 Disposition pending course. Patient full code will follow. Attending: Edson Smith <Edson Smith - Last Filed: 04/06/19 09:00> Medications Active Medications: Acetaminophen (Tylenol Tab*) 650 mg PO Q6H PRN PRN Reason: FEVER/PAIN Apixaban (Eliquis*) 5 mg PO BID [facility] Last Admin: 04/06/19 08:37 Dose: 5 mg Calcium/Vitamin D (Oscal D Tab 250/125*) 1 tab PO BID [facility] Last Admin: 04/06/19 08:37 Dose: 1 tab Cyanocobalamin (Vitamin B12 Tab*) 1,000 mcg PO DAILY [facility] Last Admin: 04/06/19 08:37 Dose: 1,000 mcg Levothyroxine Sodium (Synthroid Tab*) 100 mcg PO DAILY@0600 [facility] Last Admin: 04/06/19 06:10 Dose: 100 mcg Lidocaine (Topicaine 4% Gel*) 1 applic TOPICAL BID PRN PRN Reason: PAIN - MODERATE Magnesium Oxide (Magox 400 Tab*) 400 mg PO BID [facility] Last Admin: 04/06/19 08:37 Dose: 400 mg Metoprolol Tartrate (Lopressor Tab*) 50 mg PO Q12H [facility] Last Admin: 04/06/19 08:37 Dose: 50 mg Potassium Chloride (Klor Con Er Tab*) 20 meq PO BID [facility] Last Admin: 04/06/19 08:37 Dose: 20 meq Prednisone (Deltasone Tab*) 50 mg PO DAILY [facility] Last Admin: 04/06/19 08:37 Dose: 50 mg Objective Vital Signs: Temp Pulse Resp BP Pulse Ox 97.5 F 53 18 125/81 100 04/06/19 07:39 04/06/19 07:39 04/06/19 07:54 04/06/19 07:39 04/06/19 07:39 Laboratory Results: 04/06/19 05:42 04/05/19 09:40 Total Bilirubin 0.70 mg/dL (0.2-1.0) 03/29/19 15:40 AST 25 U/L (13-39) 03/29/19 15:40 ALT 41 U/L (7-52) 03/29/19 15:40 Alkaline Phosphatase 47 U/L (34-104) 03/29/19 15:40 B-Natriuretic Peptide 874 pg/mL (<=100) H 03/29/19 15:59 Total Protein 7.5 g/dL (6.4-8.9) 03/29/19 15:40 Albumin 4.0 g/dL (3.2-5.2) 03/29/19 15:40 Globulin 3.5 g/dL (2-4) 03/29/19 15:40 Albumin/Globulin Ratio 1.1 (1-3) 03/29/19 15:40 TSH 2.97 mcIU/mL (0.34-5.60) 04/05/19 09:37 03/29/19 03/29/19 03/29/19 15:40 20:14 23:27 Troponin I 0.01 0.01 0.01 Assessment/Plan Patient seen and examined chart reviewed pt with run of VT last night asymptomatic QTc 446 this am VSS lung CTA Car: S1 S2 No murmurs Labs reviewed PLan: stop Tikosyn Observe 24 hours on tele consider starting Amiodarione as out pt for short term may need ablation
--- NOTE | 2019-04-05 16:37 | PN ---
Subjective Date of Service: 04/05/19 Interval History: HD # 7 on 04/05 63 yo F with PMH marfan, TAA, newly dx ITP, PAF who presented with shoulder pain with recurrent Afib with RVR. s/p cardioversion on 04/04, started on Tikosyn Overnight, NSVT x1, currently in sinus, cardiology held Tikosyn this AM Pt in NAD, now awaiting Tikosyn washout No complaints Family History: Unchanged from Admission Social History: Unchanged from Admission Past Medical History: Unchanged from Admission Objective Active Medications: Acetaminophen (Tylenol Tab*) 650 mg PO Q6H PRN PRN Reason: FEVER/PAIN Apixaban (Eliquis*) 5 mg PO BID [facility] Last Admin: 04/05/19 09:02 Dose: 5 mg Calcium/Vitamin D (Oscal D Tab 250/125*) 1 tab PO BID [facility] Last Admin: 04/05/19 09:02 Dose: 1 tab Cyanocobalamin (Vitamin B12 Tab*) 1,000 mcg PO DAILY [facility] Last Admin: 04/05/19 09:02 Dose: 1,000 mcg Levothyroxine Sodium (Synthroid Tab*) 100 mcg PO DAILY@0600 [facility] Last Admin: 04/05/19 06:28 Dose: 100 mcg Lidocaine (Topicaine 4% Gel*) 1 applic TOPICAL BID PRN PRN Reason: PAIN - MODERATE Magnesium Oxide (Magox 400 Tab*) 400 mg PO BID [facility] Last Admin: 04/05/19 09:02 Dose: 400 mg Metoprolol Tartrate (Lopressor Tab*) 50 mg PO Q12H [facility] Last Admin: 04/05/19 09:01 Dose: 50 mg Potassium Chloride (Klor Con Er Tab*) 20 meq PO BID [facility] Last Admin: 04/05/19 09:02 Dose: 20 meq Prednisone (Deltasone Tab*) 50 mg PO DAILY [facility] Last Admin: 04/05/19 09:01 Dose: 50 mg Tramadol HCl (Ultram*) 50 mg PO Q6HR PRN PRN Reason: PAIN Vital Signs - 8 hr 04/05/19 04/05/19 11:43 11:51 Temperature 98.1 F Pulse Rate 49 Respiratory 14 Rate Blood Pressure 83/54 87/50 (mmHg) O2 Sat by Pulse 100 Oximetry Oxygen Devices in Use Now: None Appearance: No acute distress Eyes: No Scleral Icterus Ears/Nose/Mouth/Throat: NL Teeth, Lips, Gums Neck: NL Appearance and Movements; NL JVP Respiratory: Symmetrical Chest Expansion and Respiratory Effort, Clear to Auscultation Cardiovascular: NL Sounds; No Murmurs; No JVD, RRR Abdominal: NL Sounds; No Tenderness; No Distention, No Hepatosplenomegaly Lymphatic: No Cervical Adenopathy Extremities: No Edema Skin: No Rash or Ulcers Neurological: Alert and Oriented x 3 Result Diagrams: 04/04/19 06:50 04/05/19 09:40 Additional Lab and Data: Laboratory Tests 03/29/19 03/29/19 03/29/19 15:40 15:40 15:59 Glucose 150 H Lactic Acid 3.7 H* AST 25 ALT 41 B-Natriuretic Peptide 874 H Albumin 4.0 Diagnostic Imaging: CT Chest/abdo/pelvis: 2.9 cm AAA, no significant findings EKG Data: A-fib, rapid ventricular response at 135 bpm on admission Tele fib in rates 100s overnight 04/02 Assess/Plan/Problems-Billing Assessment: 63 yo F with PMH of Marfan's syndrome, thoracic aortic aneurysm, recent diagnosis of ITP, PAF, who presented to ED with c/o shoulder pain, here with recurrent Afib s/p cardioversion on 04/04, failed Tikosyn 2/2 NSVT - Patient Problems (1) Atrial fibrillation with rapid ventricular response Current Visit: Yes Status: Acute Priority: High Code(s): I48.91 - UNSPECIFIED ATRIAL FIBRILLATION SNOMED Code(s): 354198883507982 Comment: - Cardiology consult appreciated. - PO dilt 180 CD and Metop 50 BID - D/w Hematology (Dr Coyle) 03/30/19 - as her platelet count is improving, she can be anticoagulated, so started on Apixaban 04/01 - Plan is for Tikosyn washout, d/c tomorrow (2) Thrombocytopenia Current Visit: Yes Status: Chronic Priority: Medium Code(s): D69.6 - THROMBOCYTOPENIA, UNSPECIFIED SNOMED Code(s): 757671439 Comment: - Secondary to ITP. - Platelets increasing - Continue prednisone now at 50mg daily and dose reduce 10mg weekly, 40mg starting 04/09 - As per Hematology recommendation, will receive Rituxan infusions as scheduled (3) Thrombophlebitis leg superficial Current Visit: Yes Status: Acute Code(s): I80.00 - PHLBTS AND THOMBOPHLB OF SUPERFIC VESSELS OF UNSP LOW EXTRM SNOMED Code(s): 25748340 Comment: - LE doppler negative for DVT, shows only superficial thrombophlebitis. - Continue supportive care. (4) Marfan's syndrome Current Visit: No Status: Chronic Code(s): Q87.40 - MARFAN'S SYNDROME, UNSPECIFIED SNOMED Code(s): 68120705 Comment: - Continue outpatient follow-up with PCP. (5) Hypothyroidism Current Visit: No Status: Chronic Code(s): E03.9 - HYPOTHYROIDISM, UNSPECIFIED SNOMED Code(s): 67381639 Comment: - Continue levothyroxine (6) DVT prophylaxis Current Visit: No Status: Acute Priority: Low Code(s): DHA0715 - SNOMED Code(s): 075243259 Comment: -Apixaban (7) Full code status Current Visit: Yes Status: Acute Code(s): Z78.9 - OTHER SPECIFIED HEALTH STATUS SNOMED Code(s): 197371466 Status and Disposition: Inpatient while awaiting Tikosyn washout, d/c tomorrow?
[2019-04-05 17:09] LABS: Hematocrit 41 % (35-47); Hemoglobin 13.4 g/dL (12.0-16.0); Mean Corpuscular HGB Conc 33 g/dL (31-36); Mean Corpuscular Hemoglobin 30 pg (27-31); Mean Corpuscular Volume 91 fL (80-97); Mean Platelet Volume 11.3 fL (7.4-10.4); Platelet Count 90 10^3/uL (150-450); Red Blood Count 4.55 10^6 /uL (3.70-4.87); Red Cell Distribution Width 16 % (10.5-15); White Blood Count 10.2 10^3/uL (3.5-10.8)
[2019-04-06] MEDS: Levothyroxine TAB* 100 MCG TAB PO SCH (06:10)
[2019-04-06 06:22] LABS: Hematocrit 38 % (35-47); Hemoglobin 12.5 g/dL (12.0-16.0); Mean Corpuscular HGB Conc 33 g/dL (31-36); Mean Corpuscular Hemoglobin 29 pg (27-31); Mean Corpuscular Volume 88 fL (80-97); Mean Platelet Volume 9.9 fL (7.4-10.4); Platelet Count 91 10^3/uL (150-450); Red Blood Count 4.26 10^6 /uL (3.70-4.87); Red Cell Distribution Width 15 % (10.5-15); White Blood Count 7.7 10^3/uL (3.5-10.8)
[2019-04-06] MEDS: Calcium/Vitamin D TAB 250/125* TAB PO SCH (08:37)
[2019-04-06] MEDS: Cyanocobalamin TAB* 500 MCG PO SCH (08:37)
[2019-04-06] MEDS: Apixaban* 5 MG TAB PO SCH (08:37)
[2019-04-06] MEDS: Potassium Chlor TAB* 20 MEQ TAB.ER PO SCH (08:37)
[2019-04-06] MEDS: Magnesium Oxide TAB* 400 MG PO SCH (08:37)
[2019-04-06] MEDS: predniSONE TAB* 20 MG PO SCH (08:37)
[2019-04-06] MEDS: Metoprolol Tartrate TAB* 50 mg PO SCH (08:37)
[2019-04-06 10:20] LABS: BUN/Creatinine Ratio 27.9 (8-20); EGFR African American 106.1 (>60); EGFR Non-African American 87.7 (>60); Magnesium 1.8 mg/dL (1.9-2.7); Potassium 2.9 mmol/L (3.5-5.0)
[2019-04-06] MEDS ORDERED: Potassium Chlor TAB* 20 MEQ TAB.ER PO ONE (10:32)
--- NOTE | 2019-04-06 11:07 | PN ---
<Lety Reyes - Last Filed: 04/06/19 11:00> Subjective Date of Service: 04/06/19 - PAF, proarrythmia on Tikosyn Interval History: Patient had a 13 beat count of monomorphic VT at 130 BPM at 1951 on 04/04/19. Patient states at that time she felt " off" but denies chest pain, dizziness, syncope, palpitations. Currently she is sitting in chair and offers no complaints.No recurrent VT since 04/04/2019. Occasional VPC Medications Active Medications: Acetaminophen (Tylenol Tab*) 650 mg PO Q6H PRN PRN Reason: FEVER/PAIN Apixaban (Eliquis*) 5 mg PO BID [facility] Last Admin: 04/06/19 08:37 Dose: 5 mg Calcium/Vitamin D (Oscal D Tab 250/125*) 1 tab PO BID [facility] Last Admin: 04/06/19 08:37 Dose: 1 tab Cyanocobalamin (Vitamin B12 Tab*) 1,000 mcg PO DAILY [facility] Last Admin: 04/06/19 08:37 Dose: 1,000 mcg Levothyroxine Sodium (Synthroid Tab*) 100 mcg PO DAILY@0600 [facility] Last Admin: 04/06/19 06:10 Dose: 100 mcg Lidocaine (Topicaine 4% Gel*) 1 applic TOPICAL BID PRN PRN Reason: PAIN - MODERATE Magnesium Oxide (Magox 400 Tab*) 400 mg PO BID [facility] Last Admin: 04/06/19 08:37 Dose: 400 mg Metoprolol Tartrate (Lopressor Tab*) 50 mg PO Q12H [facility] Last Admin: 04/06/19 08:37 Dose: 50 mg Potassium Chloride (Klor Con Er Tab*) 20 meq PO BID [facility] Last Admin: 04/06/19 08:37 Dose: 20 meq Prednisone (Deltasone Tab*) 50 mg PO DAILY [facility] Last Admin: 04/06/19 08:37 Dose: 50 mg Objective Vital Signs: Temp Pulse Resp BP Pulse Ox 97.5 F 53 18 125/81 100 04/06/19 07:39 04/06/19 07:39 04/06/19 07:54 04/06/19 07:39 04/06/19 07:39 Oxygen Devices in Use Now: None Appearance: well nourished, A+O x3, cooperative with exam Ears/Nose/Mouth/Throat: NL Teeth, Lips, Gums, Clear Oropharnyx, Mucous Membranes Moist Neck: NL Appearance and Movements; NL JVP Respiratory: Symmetrical Chest Expansion and Respiratory Effort, Clear to Auscultation Cardiovascular: NL Sounds; No Murmurs; No JVD, No Edema Abdominal: NL Sounds; No Tenderness; No Distention Extremities: No Edema Skin: No Rash or Ulcers Neurological: Alert and Oriented x 3 Lines/Tubes/Other Access: Clean, Dry and Intact Peripheral IV Laboratory Results: 04/06/19 05:42 04/06/19 09:38 Total Bilirubin 0.70 mg/dL (0.2-1.0) 03/29/19 15:40 AST 25 U/L (13-39) 03/29/19 15:40 ALT 41 U/L (7-52) 03/29/19 15:40 Alkaline Phosphatase 47 U/L (34-104) 03/29/19 15:40 B-Natriuretic Peptide 874 pg/mL (<=100) H 03/29/19 15:59 Total Protein 7.5 g/dL (6.4-8.9) 03/29/19 15:40 Albumin 4.0 g/dL (3.2-5.2) 03/29/19 15:40 Globulin 3.5 g/dL (2-4) 03/29/19 15:40 Albumin/Globulin Ratio 1.1 (1-3) 03/29/19 15:40 TSH 2.97 mcIU/mL (0.34-5.60) 04/05/19 09:37 03/29/19 03/29/19 03/29/19 15:40 20:14 23:27 Troponin I 0.01 0.01 0.01 Laboratory Results - last 24 hr 04/05/19 04/06/19 04/06/19 09:37 05:42 09:38 WBC 10.2 7.7 RBC 4.55 4.26 Hgb 13.4 12.5 Hct 41 38 MCV 91 88 MCH 30 29 MCHC 33 33 RDW 16 H 15 Plt Count 90 L D 91 L MPV 11.3 H 9.9 Sodium 137 Potassium 2.9 L Chloride 101 Carbon Dioxide 28 Anion Gap 8 BUN 19 Creatinine 0.68 Est GFR ( Amer) 106.1 Est GFR (Non-Af Amer) 87.7 BUN/Creatinine Ratio 27.9 H Glucose 62 L Calcium 9.0 Magnesium 1.8 L Diagnostic Imaging: BUDDY 04/04/2019; LVEF 50-55%, moderate MR, mild TR, no HUI clot per report. EKG Data: 04/05/2019; Sinus bradycardia rate 47; QT 506 04/06/2019; sinus rhythm rate 50 Telemetry reviewed; 04/04/2019 at 1951 13 beat count of monomorphic VT at 130 BPM. Occasional VPCs since, Rate 50's. Last night and today she has been in sinus rhythm with occasional PVCs and PAcs. no recurrent VT Assessment/Plan #1 PAF with breakthrough AF despite Sotalol therapy. Patient had BUDDY/CV 2018 and was started on Tikosyn. Unfortunately she had 13 beat count of VT on 04/04/2019. Tikosyn was stopped last dose was 04/04/2019 at 2130. No recurrent VT since. Plan is OAC with Eliquis and Metoprolol. K+ 2.9 today she was given a total of 60 MEQ this morning and is to have repeat BMP at 1300. Will check outpatient BMP on 04/08/2019. May need eventual Amiodarone initiation +/- ablation. In sinus rhythm with PACs. TSH normal. AST/ALT normal. #2 Hypokalemia; K+ replaced, needs oupatient BMP 04/08/2019 #3 Proarrythmias on Tikosyn. No reoccurrence since 04/04/2019. Last dose 04/04/2019 at 2130 #4 h/o ITP. Heme managing. Plts 91 today #5 Disposition pending course. Will sign off. f/u with Dr. Henderson outpatient. Attending: Cali Becker <Cali Becker - Last Filed: 04/06/19 14:12> Medications Active Medications: Acetaminophen (Tylenol Tab*) 650 mg PO Q6H PRN PRN Reason: FEVER/PAIN Apixaban (Eliquis*) 5 mg PO BID [facility] Last Admin: 04/06/19 08:37 Dose: 5 mg Calcium/Vitamin D (Oscal D Tab 250/125*) 1 tab PO BID [facility] Last Admin: 04/06/19 08:37 Dose: 1 tab Cyanocobalamin (Vitamin B12 Tab*) 1,000 mcg PO DAILY [facility] Last Admin: 04/06/19 08:37 Dose: 1,000 mcg Levothyroxine Sodium (Synthroid Tab*) 100 mcg PO DAILY@0600 [facility] Last Admin: 04/06/19 06:10 Dose: 100 mcg Lidocaine (Topicaine 4% Gel*) 1 applic TOPICAL BID PRN PRN Reason: PAIN - MODERATE Magnesium Oxide (Magox 400 Tab*) 400 mg PO BID [facility] Last Admin: 04/06/19 08:37 Dose: 400 mg Metoprolol Tartrate (Lopressor Tab*) 50 mg PO Q12H [facility] Last Admin: 04/06/19 08:37 Dose: 50 mg Potassium Chloride (Klor Con Er Tab*) 20 meq PO BID [facility] Last Admin: 04/06/19 08:37 Dose: 20 meq Prednisone (Deltasone Tab*) 50 mg PO DAILY [facility] Last Admin: 04/06/19 08:37 Dose: 50 mg Objective Vital Signs: Temp Pulse Resp BP Pulse Ox 97.5 F 53 18 125/81 100 04/06/19 07:39 04/06/19 07:39 04/06/19 07:54 04/06/19 07:39 04/06/19 07:39 Laboratory Results: 04/06/19 05:42 04/06/19 09:38 Total Bilirubin 0.70 mg/dL (0.2-1.0) 03/29/19 15:40 AST 25 U/L (13-39) 03/29/19 15:40 ALT 41 U/L (7-52) 03/29/19 15:40 Alkaline Phosphatase 47 U/L (34-104) 03/29/19 15:40 B-Natriuretic Peptide 874 pg/mL (<=100) H 03/29/19 15:59 Total Protein 7.5 g/dL (6.4-8.9) 03/29/19 15:40 Albumin 4.0 g/dL (3.2-5.2) 03/29/19 15:40 Globulin 3.5 g/dL (2-4) 03/29/19 15:40 Albumin/Globulin Ratio 1.1 (1-3) 03/29/19 15:40 TSH 2.97 mcIU/mL (0.34-5.60) 04/05/19 09:37 03/29/19 03/29/19 03/29/19 15:40 20:14 23:27 Troponin I 0.01 0.01 0.01 Assessment/Plan Chart reviewed , patient examined, d/w Ms. Reyes and Dr. Hancock. QTC has normalized and no further VT. K 2.9 as above and being replaced. Risks /benefits of various options for rx of pafib reviewed including but not limited to risks of amiodarone. Patient being evaluated and rxed for ITP which may have contributed to recent exacerbation. Plan: replace k consider amio as outpatient as a short term measure. consider discussion with Dr. Henderson and EP about possible candidacy for ablation in the future. agree with plan. Counseling and/or Coordination of Care Minutes: 35+ minutes spent face to face and coordinating care.
[2019-04-06 14:49] VITALS: BP 102/69
[2019-04-06 15:23] LABS: BUN/Creatinine Ratio 31.9 (8-20); EGFR African American 104.3 (>60); EGFR Non-African American 86.2 (>60); Potassium 4.4 mmol/L (3.5-5.0)
--- NOTE | 2019-04-06 19:39 | PN ---
Subjective Family History: Unchanged from Admission Social History: Unchanged from Admission Past Medical History: Unchanged from Admission Objective Vital Signs - 8 hr 04/06/19 11:46 Temperature 97.8 F Pulse Rate 54 Respiratory 20 Rate Blood Pressure 102/69 (mmHg) O2 Sat by Pulse 97 Oximetry Oxygen Devices in Use Now: None Result Diagrams: 04/06/19 05:42 04/06/19 14:56 Additional Lab and Data: Laboratory Tests 03/29/19 03/29/19 03/29/19 15:40 15:40 15:59 Glucose 150 H Lactic Acid 3.7 H* AST 25 ALT 41 B-Natriuretic Peptide 874 H Albumin 4.0 Diagnostic Imaging: CT Chest/abdo/pelvis: 2.9 cm AAA, no significant findings EKG Data: A-fib, rapid ventricular response at 135 bpm on admission Tele fib in rates 100s overnight 04/02 Assess/Plan/Problems-Billing Assessment: 63 yo F with PMH of Marfan's syndrome, thoracic aortic aneurysm, recent diagnosis of ITP, PAF, who presented to ED with c/o shoulder pain, here with recurrent Afib s/p cardioversion on 04/04, failed Tikosyn 2/2 NSVT Status and Disposition: Inpatient while awaiting Tikosyn washout, d/c tomorrow?
--- NOTE | 2019-04-06 22:28 | DS ---
CC: Dr. Henderson; Dr. Coyle; Dr. Amita Ennis* DISCHARGE SUMMARY: DATE OF ADMISSION: 03/29/19 DATE OF DISCHARGE: 04/06/19 PRIMARY CARE PROVIDER: Dr. Amita Ennis. FINAL DISCHARGE DIAGNOSES: 1. Atrial fibrillation with rapid ventricular response. 2. 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 3. Thrombophlebitis of the left lower leg. 4. Marfan's syndrome. 5. Hypothyroidism. HOSPITAL COURSE: The patient presented to [facility] with dizziness on 03/29/19, with known history of paroxysmal AFib and recent ITP. She presented complaining of worsening right shoulder pain and dyspnea, became very dizzy, and was found to be in rapid AFib, was given Cardizem and was placed on Cardizem drip. She was admitted to the medical service. The patient did undergo cardiology consultation. She did undergo cardioversion on 04/04/19 and was started on Tikosyn. Unfortunately, she developed ventricular tachycardia while on Tikosyn, for which it was discontinued. Unfortunately, that was considered a favorable therapy. She was maintained for at least 24 to 36 hours for the Tikosyn washout and was placed on metoprolol b.i.d. She was seen today by me for the initial encounter. The case discussed with Cardiology and she remains rate controlled on metoprolol. She was deemed stable for discharge after her electrolytes had been corrected and to follow up as an outpatient with her Cardiology for initiation of amiodarone therapy. Her potassium this morning was 2.9, which was replaced and prior to discharge at 3, it was up to 4.4. Therefore, I deemed her stable for discharge home. DISCHARGE MEDICATIONS: The patient was discharged on the following. Continue home meds as follows: 1. Levothyroxine 100 mcg daily. 2. Magnesium 400 mg b.i.d. 3. Potassium 20 mEq b.i.d. 4. Prednisone 60 mg daily and to be tapered as per recommendation from the Hematology/Oncology. She is scheduled to have an infusion on Thursday and the patient instructed to follow up further recommendation on the taper dose, which probably goes down to 50 mg afterward. 5. Tramadol 50 q.6 hours. 6. Eliquis 5 mg b.i.d. new medication. 7. B12 of 1000 mcg daily. 8. Metoprolol 50 b.i.d. PHYSICAL EXAM: Vital Signs: Temperature is 97.8, pulse 51, blood pressure is 102/69. General: She is awake, alert, oriented, pleasant, and in no apparent distress. Head and Neck: Normocephalic, atraumatic. Supple. Lungs: Clear to auscultation bilaterally. Cardiovascular: S1, S2, irregular. Abdomen: Positive bowel sounds, soft, nontender. Extremities: No pedal edema. DISCHARGE CONDITION: Stable. DISCHARGE DISPOSITION: She is to be discharged home. DISCHARGE RECOMMENDATIONS: 1. The patient to follow up with her primary in 1 to 2 weeks. 2. Follow up with Dr. Henderson/Lety, Cardiology in 1 to 3 days for initiation of amiodarone. The patient was given prescription to have a BMP and magnesium this coming Thursday with the results to Cardiology. 3. Follow up with Dr. Coyle as scheduled on Thursday and further instruction to be given for further taper of the prednisone from 60 according to recommendation from Hematology. [id number]/[facility] #: [id number] [place]
== END 2019-04-06 17:19 | disposition home or self-care (01) | DRG 201 ==
LOC: ED 15:28 → OBSVTOIN 18:34 → MEDTELE 18:34 → INTOOBSV 18:34
PROVIDERS: ADMIT Internal Medicine; ATTEND Internal Medicine
PROC: B246ZZ4 Ultrasonography of Right and Left Heart, Transesophageal (ICD-10-PCS; 2019-04-04)
PROC: 5A2204Z Restoration of Cardiac Rhythm, Single (ICD-10-PCS; principal; 2019-04-04 08:00)
DX: I48.0 Paroxysmal atrial fibrillation (principal); D69.3 Immune thrombocytopenic purpura; Q87.40 Marfan syndrome, unspecified; E03.9 Hypothyroidism, unspecified; M41.9 Scoliosis, unspecified; I10 Essential (primary) hypertension; E87.6 Hypokalemia; J44.9 Chronic obstructive pulmonary disease, unspecified; K57.30 Diverticulosis of large intestine without perforation or abscess without bleeding; K76.0 Fatty (change of) liver, not elsewhere classified; D25.9 Leiomyoma of uterus, unspecified; I71.4 Abdominal aortic aneurysm, without rupture; G43.909 Migraine, unspecified, not intractable, without status migrainosus; M85.80 Other specified disorders of bone density and structure, unspecified site; D64.9 Anemia, unspecified; R60.0 Localized edema; I71.2 Thoracic aortic aneurysm, without rupture; K44.9 Diaphragmatic hernia without obstruction or gangrene; I08.3 Combined rheumatic disorders of mitral, aortic and tricuspid valves; I80.3 Phlebitis and thrombophlebitis of lower extremities, unspecified; I47.2 Ventricular tachycardia; Z79.01 Long term (current) use of anticoagulants; Z79.890 Hormone replacement therapy; Z92.21 Personal history of antineoplastic chemotherapy; Z88.2 Allergy status to sulfonamides; Z91.09 Other allergy status, other than to drugs and biological substances; Z86.73 Personal history of transient ischemic attack (TIA), and cerebral infarction without residual deficits; Z98.42 Cataract extraction status, left eye; Z98.41 Cataract extraction status, right eye; Z82.69 Family history of other diseases of the musculoskeletal system and connective tissue; Z82.3 Family history of stroke; Z82.49 Family history of ischemic heart disease and other diseases of the circulatory system; Z72.89 Other problems related to lifestyle; Z78.0 Asymptomatic menopausal state
CPT/HCPCS: 36415; 71045; 71260; 74177; 80048; 80053; 83605; 83735; 83880; 84443; 84484; 85025; 85027; 92960; 93005; 93312; 93325; 99156; 99157; 99232; 99284; A9270-GY; J1160; J1200; J2250; J2310; J3010; J7512; J9312; Q9967

== ENCOUNTER 2019-06-10 17:13 | Emergency (ER) | payer BC ==
--- NOTE | 2019-06-10 17:27 | ED ---
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 Pt has known idiopathic thrombocytopenia, platelets 3 days ago 80K, but have been as low as 4K. Dr. Ennis notified the patient of the results of the MRA, MRI and patient came by private car to the [facility] ED. Pt describes occipital to frontal headache and pain behind her eyes, which pt describes as "tension headache." She notes her neck pain runs up both sides of her neck. Pt currently denies any neck pain or headache. She states she was prescribed Flexeril by Dr. Ennis and she has had relief of her headache with this medication. Denies fever, chest pain, abd pain. Dr. Ennis is requesting for the patient to be transferred to [facility] for a higher level of care because our neurosurgeon does not handle dissections, and Dr. Ennis wants pt to be evaluated and stabilized in the [facility] ED first. PMHx includes Marfan's syndrome, afib, thrombocytopenia, cardioversion (4-5 times in the last 6 months). Pt is anticoagulated on Eliquis (since the end of March 2019). Pt reports that as of 06/08/19 pt had platelet level of 80K Pt notes she was given Sotalol for afib while hospitalized and it "didn't wok" and then they tried a medication that started with a "T" and resulted in a reaction of V-fib. Patient is now on Amiodarone. Patient has an upcoming splenectomy scheduled on 06/14/[address] Samaniego, general surgeon at [facility]. She also has an ablation scheduled for 07/05/[address] English at [facility]. Vital signs while in room: HR 73 bpm, BP 132/68, O2 sat is 99%. Home Medications Medication Instructions Recorded Confirmed Type Potassium Chlor TAB* [Klor Con ER 40 meq PO BID 10/13/17 06/10/19 History TAB 10 MEQ*] Levothyroxine TAB* [Synthroid 100 100 mcg PO QAM 03/13/19 06/10/19 History MCG TAB*] Magnesium Oxide TAB* [MagOx 400 500 mg PO BID 03/29/19 06/10/19 History TAB*] Apixaban* [Eliquis*] 5 mg PO BID 30 Days #60 tab 04/06/19 06/10/19 Rx Calcium Carbonate/Vitamin D3 1 each PO BID 04/27/19 06/10/19 History [Calcium 600 + Vit D Tablet] Metoprolol Tartrate TAB* 25 mg PO BID 04/27/19 06/10/19 History [Lopressor TAB*] Selenomethionine [Selenium] 200 mcg PO QAM 04/27/19 06/10/19 History Amiodarone TAB* [Cordarone Tab*] 200 mg PO DAILY WITH MEAL 05/31/19 06/10/19 History Cyanocobalamin TAB* [Vitamin B12 1,000 mcg PO QAM 05/31/19 06/10/19 History TAB*] Cyclobenzaprine (NF) 5 mg PO Q8HR PRN 05/31/19 06/10/19 History [Cyclobenzaprine 5 MG (NF)] Cholecalciferol TAB* [Vitamin D 400 unit PO DAILY 06/10/19 06/10/19 History TAB*] - History Of Current Complaint Stated Complaint: HEADACHE PER EMS Time Seen by Provider: 06/10/19 17:16 Hx Obtained From: Patient, Other: - Dr. Ennis Onset/Duration: Started weeks ago, Still Present Initially Headache Was: Mild Currently Pain Is: Current Pain Scale(0-10)= - 0 Timing: Constant, Weeks Character: Dull Location of Headache: Other: - from occipital to frontal Aggravating Factor: Nothing Allevating Factors: Nothing Associated Signs And Symptoms: Neck Pain - Allergies/Home Medications Allergies/Adverse Reactions: Allergies Allergy/AdvReac Type Severity Reaction Status Date / Time Sulfa (Sulfonamide Allergy Intermediate Rash Verified 05/31/19 13:12 Antibiotics) nickel Allergy Rash Verified 05/31/19 13:12 Home Medications: Home Medications Cholecalciferol TAB* [Vitamin D TAB*] 400 unit PO DAILY 06/10/19 [History Confirmed 06/10/19] PMH/Surg Hx/FS Hx/Imm Hx Previously Healthy: No - MARFAN's DS. 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 Denies: Hx Coronary Artery Disease, Hx Hypercholesterolemia, Hx Myocardial Infarction, Hx Pacemaker/ICD, Hx Peripheral Vascular Disease Respiratory History: Denies: Hx Asthma, Hx Chronic Obstructive Pulmonary Disease (COPD) History: Denies: Hx Chronic Renal Failure, Hx Dialysis, Hx Renal Disease Musculoskeletal History: Reports: Hx Scoliosis, Other Musculoskeletal History - MARFAN'S SYNDROME Denies: Hx Arthritis, Hx Rheumatoid Arthritis, Hx Osteoporosis Sensory History: Reports: Hx Cataracts - hx of cataract surgery Denies: Hx Contacts or Glasses, Hx Hearing Aid Opthamlomology History: Reports: Hx Cataracts - hx of cataract surgery Denies: Hx Contacts or Glasses Neurological History: Reports: Hx Transient Ischemic Attacks (TIA) Denies: Hx Headaches, Hx Seizures Psychiatric History: Denies: Hx Anxiety, Hx Panic Disorder - Cancer History Hx Chemotherapy: No Hx Radiation Therapy: No - Surgical History Surgical History: Yes Surgery Procedure, Year, and Place: BL CATARACT SURGERY. 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 cardioversion - Immunization History Date of Tetanus Vaccine: "I think so" when asked if up to date Infectious Disease History: Yes Infectious Disease History: Reports: Hx Shingles - NOT CURRENT Denies: Traveled Outside the [place] in Last 30 Days - Family History Known Family History: Positive: Cardiac Disease - father of [place], Other - Marfan syndrome - Social History Lives: With Family Alcohol Use: Occasionally Alcohol Amount: glass of wine per month Hx Substance Use: No Substance Use Type: Reports: None Hx Tobacco Use: No Smoking Status (MU): Never Smoked Tobacco Review of Systems Negative: Fever Eyes: Other - POSITIVE: pain behind her eyes Positive: Other - no peripheral field cut . Negative: Blurred Vision, Diplopia Negative: Chest Pain Respiratory: Negative Negative: Abdominal Pain Positive: no symptoms reported Musculoskeletal: Other - POSITIVE: neck pain Skin: Negative Positive: Headache Psychological: Normal All Other Systems Reviewed And Are Negative: Yes Physical Exam - Summary Physical Exam Summary: Appearance: Well-appearing, no pain distress, well-nourished Skin: Warm, color reflects adequate perfusion, dry Head: Normal Head/Face inspection, atraumatic Eyes: Conjunctiva clear. Visual sandoval are normal by confrontation. No blurry or double vision by confrontation bilaterally, covering each eye with one eye cup. ENT: Normal inspection Neck: Supple, no nodes, no JVD, no carotid bruits Respiratory: Lungs clear, normal breath sounds, no respiratory distress Cardio: RRR, No murmur, pulses normal, brisk capillary refill Abdomen: Soft, nontender, no masses, no bruits, no distended Bowel sounds: Present Musculoskeletal: Strength Intact/ROM intact, no calf tenderness, no edema. Psychological: Normal Neuro: Alert, muscle tone normal, no focal deficit, visual sandoavl intact, EOMI, moves all extremities well, facial symmetry, speech clear Triage Information Reviewed: Yes Vital Signs On Initial Exam: Initial Vitals Temp Pulse Resp BP Pulse Ox 97.5 F 70 16 144/83 95 06/10/19 17:14 06/10/19 17:14 06/10/19 17:14 06/10/19 17:14 06/10/19 17:14 Vital Signs Reviewed: Yes Diagnostics - Vital Signs Vital Signs Temp Pulse Resp BP Pulse Ox 06/10/19 17:14 97.5 F 70 16 144/83 95 - Laboratory Result Diagrams: 06/10/19 17:37 06/10/19 17:37 Lab Statement: Any lab studies that have been ordered have been reviewed, and results considered in the medical decision making process. - Radiology Chest XR Radiology Interpretation Completed By: ED Physician Summary of Radiographic Findings: Prominent aortic knob, normal mediastinum, no infiltrates. - EKG 17:29 Cardiac Rate: NL - at 68 bpm EKG Rhythm: Sinus Rhythm ST Segment: Non-Specific Ectopy: PACs Summary of EKG Findings: First degree AV block (219). Normal IVCT. Normal QTc. Normal axis. - Additional Comments Diagnostic Additional Comments: MRA Neck, as read by radiologist (done as an outpatient at [facility]) IMPRESSION: 1. 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 2. No interval carotid artery stenosis by nascet criteria. MRI Brain, as read by radiologist (done as an outpatient at [facility]) IMPRESSION: Unremarkable MRI of the brain. Reports were reviewed by Dr. Henderson. Re-Evaluation - Re-Evaluation First Eval Re-Evaluation Time: 18:20 Change: Unchanged Comment: Patient is doing well. Patient is aware she has dilatation of the thoracic aorta and dilatation of the abdominal aorta, but no true aneurysms. Her headache is still controlled. BP of 143 systolic and repeat blood pressure of 153/94. Will give metoprolol 2.5mg IV. Second Eval Re-Evaluation Time: 19:13 Change: Unchanged Comment: Blood pressure is 130/70. Patient agrees to transfer. Denies any headache or neck pain. Answered questions to the best of my ability. 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 MRI brain done today was negative. Pt has had a headache and neck pain since 05/04/19. Pt describes occipital to frontal headache and pain behind her eyes, which pt describes as "tension headache." She notes her neck pain runs up both sides of her neck. Pt currently denies any neck pain or headache. Pt reports that as of 06/08/19 pt had platelet level of 80K, due to ITP. Pts medications reviewed this visit. Pt on Eliquis. Nurses notes reviewed. Allergies noted. High blood pressure noted. CXR shows no acute findings. (preliminary reading, by ED physician.). EKG is SR with no acute findings, No STEMI. Patient had MRA neck and MRI brain done as an outpatient both ordered by Dr. Ennis, pt's PCP. MRA of neck shows 1. 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 2. No interval carotid artery stenosis by nascet criteria. MRI Brain reveals unremarkable MRI of the brain. Discussed the case with Dr. Ferrara, neurosurgeon, who agrees with transfer of patient to higher level of care facility, that a dissection would not be treated at [facility]. Discussed pt care with Dr. Tubbs, vascular surgeon at [facility] in [place], who accepts the pt for ED to ED transfer. Dr. Oro, ED attending at [facility], accepts pt for an emergent transfer to [facility] ED, [address] [facility]. On re-evaluation, blood pressure is 130/70 after metoprolol 2.5mg IV. Pt remains in sinus rhythm. Patient agrees to transfer. Denies any headache or neck pain. Answered questions to the best of my ability. - Diagnoses Differential Diagnosis/HQI/PQRI: Other Provider Diagnoses: Internal carotid artery dissection, Marfan's syndrome, Thrombocytopenia - Physician Notifications Discussed Care Of Patient With: Ryne Ferrara Time Discussed With Above Provider: 18:02 Instructed by Provider To: Transfer - Discussed with Dr. Ferrara, neurosurgeon, who agrees with transfer to higher level. [18:31] Discussed pt care with Dr. Tubbs, vascular surgeon at [facility] in [place], who accepts the pt for ED to ED transfer. [16:41] Dr. Oro, ED attending at [facility], accepts pt for transfer. Reason For Transfer: Specialty or service not available at [facility]. - Critical Care Time Critical Care Time: 30-74 min Discharge - Sign-Out/Discharge Documenting (check all that apply): Patient Departure - Transfer to [facility] ED Patient Received Moderate/Deep Sedation with Procedure: No - Discharge Plan Condition: Stable Disposition: TRANS HIGHER LVL OF CARE FAC Referrals: Amita Ennis MD [Primary Care Provider] - - Billing Disposition and Condition Condition: STABLE Disposition: Trans Higher Lvl of Care Fac - Attestation Statements Document Initiated by Aziza: Yes Documenting Scribe: Tatianna Galvan Provider For Whom Scribe is Documenting (Include Credential): Allyson Henderson MD Scribe Attestation: Tatianna Timmons, scribed for Allyson Henderson MD on 06/10/19 at 1955. Scribe Documentation Reviewed: Yes Provider Attestation: The documentation as recorded by the Tatianna fajardo accurately reflects the service I personally performed and the decisions made by me, Allyson Henderson MD Status of Scribe Document: Viewed
[2019-06-10 17:53] LABS: ABS Basophils 0.1 10^3/ul (0-0.2); ABS Eosinophils 0.2 10^3/ul (0-0.6); ABS Lymphocytes 1.1 10^3/ul (1.0-4.8); Eosinophil % 3.4 %; Hematocrit 41 % (35-47); Hemoglobin 13.3 g/dL (12.0-16.0); Lymphocyte % 16.9 %; Mean Corpuscular HGB Conc 33 g/dL (31-36); Mean Corpuscular Hemoglobin 28 pg (27-31); Mean Corpuscular Volume 85 fL (80-97); Mean Platelet Volume 9.5 fL (7.4-10.4); Nucleated Red Blood Cells % 0.1; Platelet Count 77 10^3/uL (150-450); Red Cell Distribution Width 14 % (10-15); White Blood Count 6.5 10^3/uL (3.5-10.8)
[2019-06-10 17:56] LABS: Activated Partial Thrombo Time 38.1 seconds (26.0-38.0); INR 1.14 (0.82-1.09)
[2019-06-10 18:10] LABS: Troponin I 0.01 ng/mL (<0.04)
--- OUTSIDE RECORDS SUMMARY | 2019-06-10 18:10 | XMS REPORT | Continuity of Care Document ---
:1955 External Reference #:[id number] Author Name Beto Castanon M.D. Address [address] [place] [address] Care Team Providers Name Role Phone Amita Ennis M.D. Care Team Information Early Childhood Special Educator Unavailable Amita Ennis M.D. Primary Care Physician Unavailable Payers Date Identification Numbers Payment Provider Subscriber Policy Number: [id number] [employer] ([facility]) Carrie Soto PayID: [id number] [place] [address] Problems Active Problems Provider Date Presbyopia Beto Castanon M.D. Onset: 10/16/2014 Lens Replaced By Other Means Regino Pérez M.D. Onset: 01/17/2013 Vitreous opacities Regino Pérez M.D. Onset: 01/17/2013 Vitreous degeneration Regino Pérez M.D. Onset: 01/17/2013 After-cataract with vision obscured Regino Pérez M.D. 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 01/20/2017 0.1-0.3% Solution Levothroid Unknown 75mg Vitamins & Minerals Unknown Tablets Metoprolol Tartrate 1 and 1/2 Unknown 25mg Tablets Potassium Unknown Amiodarone HCL 1 by mouth every Unknown 100mg day Tablets Eliquis 1 by mouth twice Unknown 2.5mg Tablets a day Flexeral Unknown Magnesium, Calcium, Unknown Selenium History Medications Prednisolone Acetate 1 gtt os as 366.16 Regino Ma 03/17/2011 - directed Brittney Pérez 12/02/2011 1% Suspension Bromday 1 drop left eye 366.16 Regino Ma 03/17/2011 - 0.09% every day for 15 Brittney Pérez 12/02/2011 Solution days, to begin 1 day prior to surgery Neomycin/Polymyxin/D 1 gtt os qid for 366.16 Regino Ma 03/17/2011 - examethasone 8 days, to begin Brittney Pérez 12/02/2011 1 day prior to 3.5-74503-3.1 surgery Suspension Neomycin/Polymyxin/D 1 gtt OS qid for 5ml 366.16 Beto Castanon M.D. 2010 - examethasone 8 days, to begin 03/17/2011 1 day prior to 3.5-71663-0.1 surgery Suspension Bromday 1 drop left eye 1.700ml 366.16 Beto Castanon M.D. 01/31/2011 - 0.09% every day for 15 03/17/2011 Solution days, to begin 1 day prior to surgery Prednisolone Acetate 1 gtt OS as 10ml 366.16 Beto Castanon M.D. 2010 - directed 03/17/2011 1% Suspension Propranolol HCL Unknown - 11/30/2014 Evista Unknown - 60mg Tablets 11/30/2014 Citalopram qd Unknown - Hydrobromide 11/30/2014 10mg Tablets Clonazepam prn Unknown - 0.5mg 11/30/2014 Tablets Beta Rudy Unknown - 11/30/2014 Vital Signs Date Vital Result Comment 06/07/2019 1:50pm Intraocular Pressure Right Eye 15 mmHg Intraocular Pressure Left Eye 14 mmHg -Is, Applanation 01:50 PM 05/04/2018 1:14pm Intraocular Pressure Right Eye 15 mmHg 02/18/2018 2:58pm Intraocular Pressure Right Eye 12 mmHg Intraocular Pressure Left Eye 13 mmHg -Is, Applanation 02:58 PM 01/27/2017 1:14pm Intraocular Pressure Right Eye 13 mmHg Intraocular Pressure Left Eye 14 mmHg -Is, Applanation 01:14 PM 01/22/2016 1:50pm Intraocular Pressure Left Eye 13 mmHg -SM, Applanation 01 :48 PM 12/07/2015 2:11pm Intraocular Pressure Right Eye 11 mmHg Intraocular Pressure Left Eye 11 mmHg Applanation MAURILIO 02:11 PM 12/04/2014 10:10am Intraocular Pressure Left Eye 10 mmHg 10:10 Am, Applanation CK 10/16/2014 10:17am Intraocular Pressure Right Eye 10 mmHg Intraocular Pressure Left Eye 10 mmHg 10:17 Am, Applanation CK 01/17/2013 2:28pm Intraocular Pressure Right Eye 11 mmHg Intraocular Pressure Left Eye 15 mmHg -as, Applanation 02:28 PM 01/31/2011 10:07am Intraocular Pressure Right Eye 10 mmHg Intraocular Pressure Left Eye 10 mmHg 10:07 Am ia Procedures Date Code Description Status 06/07/2019 97907 Refraction Completed 06/07/2019 12227 Comprehensive Exam-Established Patient Completed 04/21/2018 45551 Laser Capsulotomy Completed 02/18/2018 33586 Refraction Completed 02/18/2018 21838 Comprehensive Exam-Established Patient Completed 01/27/2017 47834 Refraction Completed 01/27/2017 53777 Comprehensive Exam-Established Patient Completed 12/19/2015 38297 Laser Capsulotomy Completed 12/07/2015 33252 Refraction Completed 12/07/2015 80431 Comprehensive Exam-Established Patient Completed 10/16/2014 42904 Comprehensive Exam-Established Patient Completed 01/17/2013 64671 Comprehensive Exam-Established Patient Completed 12/03/2011 92229 Refraction Completed 12/03/2011 69629 Comprehensive Exam-Established Patient Completed 04/08/2011 91934 Cataract Extraction W/ Iol Completed 04/02/2011 12077 Ascan Iol Master Completed 04/02/2011 03462 Intermediate Exam-Established PT Completed 03/25/2011 39454 Cataract Extraction W/ Iol Completed 03/17/2011 32052 Ascan Iol Master Completed 03/17/2011 61107 Intermediate Exam-Established PT Completed 01/31/2011 75125 Comprehensive Exam New Patient Completed Encounters Type Date Location Provider Dx Diagnosis Office Visit 12/04/2014 [facility] Beto Castanon 379.21 Vitreous Degeneration 10:00a Brittney 379.24 Vitreous Opacities Other Plan of Treatment 06/07/2019 - Beto Castanon M.D.H43.813 Vitreous degeneration, bilateralComments: Discussed diagnosis with patient. Patient instructed to call and follow-up for any increase or change in floaters, new or more frequent flashes, any change in vision or loss of visual field.Follow up:1 year. Complete exam.H43.393 Other vitreous opacities, bilateralComments:Discussed diagnosis and symptoms to be aware of including flashes, increase floaters and visual field defects. Patient to call for any changes in symptoms or new symptoms. Follow.Z96.1 Presence of intraocular lensComments:Follow.H52.4 PresbyopiaComments:Prescription for glasses given.
[2019-06-10 18:12] LABS: CKMB ng/mL 1.1 ng/mL (0.6-6.3)
[2019-06-10 18:13] LABS: Albumin 3.7 g/dL (3.2-5.2); Albumin/Globulin Ratio 1.6 (1-3); BUN/Creatinine Ratio 22.1 (8-20); Calcium 9.1 mg/dL (8.6-10.3); EGFR African American 91.9 (>60); Globulin 2.3 g/dL (2-4); Potassium 4.2 mmol/L (3.5-5.0); Total Bilirubin 0.5 mg/dL (0.2-1.0)
[2019-06-10] MEDS ORDERED: Metoprolol Tartrate IV* 1 MG/ML 5 ML VIAL IV ONE (18:17)
[2019-06-10] MEDS ORDERED: Potassium Chlor TAB* 20 MEQ TAB.ER PO ONE (19:27)
[2019-06-10 19:31] VITALS: BP 151/89
== END 2019-06-10 19:30 | disposition short-term general hospital (02) ==
LOC: ED 17:13
DX: I77.71 Dissection of carotid artery (principal); Q87.40 Marfan syndrome, unspecified; D69.6 Thrombocytopenia, unspecified; M54.2 Cervicalgia; I48.91 Unspecified atrial fibrillation; Z79.01 Long term (current) use of anticoagulants; I10 Essential (primary) hypertension; Z86.73 Personal history of transient ischemic attack (TIA), and cerebral infarction without residual deficits; Z88.2 Allergy status to sulfonamides
CPT/HCPCS: 36415; 71045; 80053; 82550; 82553; 83605; 83735; 83880; 84484; 85025; 85610; 85730; 93005; 96374; 99284; J3490

== ENCOUNTER 2019-06-14 12:15 | Inpatient (IN) | payer BC ==
--- NOTE | 2019-05-31 16:46 | HP ---
CC: Dr. Channing Coyle; Dr. Arlen Henderson; Dr. Amita Ennis * PREOPERATIVE HISTORY AND PHYSICAL: DATE OF PREOPERATIVE HISTORY AND PHYSICAL EXAMINATION: 05/31/19 DATE OF ADMISSION: 06/14/19. This patient is scheduled for AA admission by Dr. Samaniego on 06/14/19. ATTENDING SURGEON: Dr. Beto Samaniego * (dictated by Radha Boles NP). CHIEF COMPLAINT: Immune thrombocytopenia purpura. HISTORY OF PRESENT ILLNESS: The patient is a 63-year-old female with immune thrombocytopenia purpura, Marfan syndrome, paroxysmal atrial fibrillation, mitral valve prolapse, hypothyroidism, osteopenia, and anxiety who was referred to Dr. Samaniego by Dr. Coyle for laparoscopic splenectomy. She completed a course of Rituxan and reports she did not have much of a response until recently , when her platelet count was 114,000 on 05/24/19. She states that in February 2019 she received appropriate vaccinations. She denies nausea, vomiting, abdominal pain, fevers, or chills. She is followed by Dr. Henderson for paroxysmal atrial fibrillation and has been cleared to proceed with the proposed surgery. She also follows with Dr. Darian Chaudhry, a case management rn in [place], and is scheduled for an electrophysiology study and radiofrequency ablation on 07/05/19. Dr. Samaniego has examined the patient and discussed the recommendations for laparoscopic, possible open splenectomy. He discussed the nature of the surgical procedure, the indications, risks, benefits, and alternatives. Today, I reviewed the typical hospitalization and expected postoperative care and recovery. The patient has had a chance to ask questions and stated that she understands the information and is satisfied with the answers given to her questions. She will sign surgical consent on the day of surgery. PAST MEDICAL HISTORY: Immune thrombocytopenia purpura, Marfan syndrome, paroxysmal atrial fibrillation, mitral valve prolapse, hypothyroidism, osteopenia, and anxiety. PAST SURGICAL HISTORY: Bilateral lens implants in 2015 in [place], surgical correction of strabismus in childhood, and vaginal polypectomy in childhood. MEDICATIONS: 1. Cyclobenzaprine 5 mg every 8 hours p.r.n. for neck pain. 2. Magnesium oxide 500 mg p.o. b.i.d. 3. Metoprolol 25 mg p.o. b.i.d. 4. Amiodarone 200 mg p.o. daily with breakfast. 5. Eliquis 5 mg p.o. b.i.d. and she will take her last dose on 06/11/19 in the morning. 6. Vitamin B12 at 100 mcg p.o. daily. 7. Levothyroxine 100 mcg p.o. daily. 8. Potassium chloride ER 10 mEq 2 tabs b.i.d. 9. Selenium 200 mcg p.o. daily. 10. Vitamin D supplement daily. 11. Calcium and vitamin D supplement b.i.d. ALLERGIES: SULFA and NICKEL both cause rash. FAMILY HISTORY: Father age 43 due to myocardial infarction and also had Marfan syndrome. Mother due to stroke, was diagnosed with cervical cancer in her 40s. A half brother has a history of DVT. No known anesthesia complications in the family. No known bleeding tendencies or bleeding disorders. SOCIAL HISTORY: She lives with her male partner. She has never been a smoker. She rarely consumes alcohol and denies the use of other substances. REVIEW OF SYSTEMS: General: No previous anesthesia complications. No deep vein thrombosis or pulmonary embolism, although she did have an episode of superficial venous thrombosis of the left lower extremity in the spiring of 2019 and she also has varicose veins of the left lower extremity. Constitutional: No fevers or chills. She reports that she is easily fatigued; her weight has been stable. Endocrine: She is hypothyroid, on replacement. No diabetes. Respiratory: No dyspnea on exertion. No cough. Cardiovascular: No anginal chest pain. No palpitations. No history of myocardial infarction. Please see Dr. Henderson's consultation note that is dated 05/26/19 for preoperative clearance; she has had cardioversion in the past for atrial fibrillation with the most recent on 05/02/19 when she was on a lower dose of amiodarone; ejection fraction 50% to 55%. She has a history of Marfan syndrome with dilated aorta. She had a CTA in 2014, with no change in the caliber of the tortuous aortic arch and fusiform dilatation with descending aorta diameter 3.7 cm. She has occasional edema of the lower extremities. Gastrointestinal: No nausea, vomiting, diarrhea, or chronic constipation. No blood in the stool. She has an asymptomatic hiatal hernia. Genitourinary: No dysuria. Hematologic: Immune thrombocytopenia purpura; she received a transfusion of platelets in the spring 2018 when she was hospitalized and as previously mentioned, her most recent platelet count was 114,000 on 05/24/19 and she will have another CBC on 05/31/19 with her preadmission testing. Musculoskeletal: Since early April, she has suffered with neck pain that radiates down into her shoulders and is associated with headache and recently was prescribed Flexeril with good results; she has a history of osteopenia and scoliosis. Neurologic: History of migraine headaches with visual auras. Nos history of seizures. PHYSICAL EXAMINATION GENERAL SURVEY: The patient is a 63-year-old female, well developed, well nourished, in no acute distress. VITAL SIGNS: Height 70.5 inches, weight 160 pounds, body mass index 23. Blood pressure 102/78, pulse 66 and regular, respiratory rate 18, temperature 97.2. HEENT: Benign. NECK: Supple. No cervical lymphadenopathy. No carotid bruits. BACK: Scoliosis. No CVA tenderness. LUNGS: Breath sounds bilaterally clear and equal. HEART: Regular rate and rhythm. A 2/6 systolic murmur heard at the apex. No rubs. ABDOMEN: Active bowel sounds. Soft, nondistended. No surgical scars. Nontender throughout. No obvious palpable masses. No organomegaly appreciated. No hernias. PELVIC: Exam deferred. RECTAL: Exam deferred. EXTREMITIES: Warm without cyanosis or clubbing. There is mild bilateral ankle edema. No pitting. NEUROLOGIC: Alert and oriented x3. Steady gait. SKIN: Warm, dry, intact. IMPRESSION: 1. Immune thrombocytopenia purpura. 2. Paroxysmal atrial fibrillation. PLAN: AA admission to Dr. Samaniego' service for laparoscopic splenectomy, possible open splenectomy on 06/14/19. She has been cleared to proceed by Dr. Henderson from cardiology. She will stop the Eliquis after the morning dose on 06/11/19. TIANNA BOLES NP [id number]/[facility] #: [id number] [facility]ITAL[facility]athan
[2019-08-02] MEDS ORDERED: Buffered Lidocaine 1% SYRIN* 1 ML/SYRINGE INTRADERM ONE (12:28)
[2019-08-03] MEDS ORDERED: Gabapentin CAP(*) 300 MG PO ONE (06:00)
[2019-08-03] MEDS ORDERED: Lactated Ringers 1000 ML Bag* 1,000 ML IV SCH (06:00)
[2019-08-03] MEDS ORDERED: Acetaminophen TAB* 325 MG PO ONE (06:00)
--- OUTSIDE RECORDS SUMMARY | 2019-08-03 07:14 | XMS REPORT | Continuity of Care Document ---
:1955 External Reference #:[id number] Author Name Amita Ennis M.D. (transmitted by agent of provider Anuj Huang) Address [address] [facility], [place] [address] Care Team Providers Name Role Phone Other Physician Practices Care Team Information Wellness Program Manager Unavailable Amita Ennis MD - Internal Care Team Information Wellness Program Manager [phone] Medicine Channing Coyle M.D. - Hematology & Care Team Information Wellness Program Manager Oncology Arlen Henderson MD - Cardiovascular Care Team Information Wellness Program Manager [phone] Disease Cem Kc M.D. - Neurology Care Team Information Wellness Program Manager Problems Active Problems Provider Date Marfan's syndrome Fern Jean M.D., FAC Onset: 03/17/2011 Hypothyroidism Fern Jean M.D., FACP Onset: 03/17/2011 Mitral valve disorder Meir Bone M.D., [facility] Onset: 09/13/2014 Note: mitral valave insufficiency Osteoporosis Zulay Kraus M.D. Onset: 11/07/2014 Scoliosis deformity of spine Zulay Kraus M.D. Onset: 11/07/2014 Tendinosis Zulay Kraus M.D. Onset: 02/19/2015 Note: rotatot cuff with AC joint OA Thoracic aortic ectasia Meir Bone M.D., [facility] Onset: 10/10/2015 Arachnoid cyst Zulay Kraus M.D. Onset: 10/23/2015 Note: L anterior fossa Disturbance in sleep behavior Yudi Louie MD Onset: 12/18/2015 Paroxysmal atrial fibrillation Meir Bone M.D., [facility] Onset: 2015 Abnormal results function studies of Cem Kc M.D. Onset: 06/21/2019 central nervous system Thrombocytopenic disorder Cem Kc M.D. Onset: 06/21/2019 Headache Cem Kc M.D. Onset: 06/21/2019 Social History Type Date Description Comments Sex Unknown ETOH Use Rarely consumes alcohol Tobacco Use Start: Unknown Patient has never smoked Recreational Drug Use Negative For Denies Drug Use Smoking Status Reviewed: 07/15/19 Patient has never smoked Exercise Type/Frequency Does not exercise Allergies, Adverse Reactions, Alerts Active Allergies Reaction Severity Comments Date Sulfa Urticaria Moderate 01/23/2010 Nickel 09/09/2016 Medications Active Medications SIG Qnty Indications Ordering Date Provider Vitamin D 1 tab Every Day Unknown 06/10/2019 (Cholecalciferol) 1000Unit Capsules Cyclobenzaprine HCL 1-2 tabs every 60tabs R51 Amita 05/24/2019 5mg 8 hours as Brittney Ennis Tablets needed Magnesium Oxide 500MG 1 tab by mouth [facility], 04/18/2019 twice a day [employer] Metoprolol Tartrate take 1 tablet 60tabs I48.0 [facility], 04/11/2019 25mg oral twice a [employer] Tablets day. Amiodarone HCL 1 tab by mouth 90tabs I48.0 [facility], 04/11/2019 200mg every day with [employer] Tablets meal Eliquis 1 by mouth 60tabs Lety [facility], 04/07/2019 5mg Tablets twice a day [employer] Vitamin B-12 1 by mouth Zulayvalarie Kraus, 04/07/2019 1000mcg every day M.D. Tablets Automatic Blood 1 adult large 1units Maria C Mcfadden, 11/11/2018 Pressure Monitor cuff and unit N.P. Kit for upper arm utd twice a day . please log results . call providor when systolic reading is below 100 or above 1 Levothyroxine Sodium Take 1 Tablet 90tabs E03.9 Zulay Kraus, 10/20/2017 100mcg By Mouth Daily M.D. Tablets Calcium 600 + D 2 tab bid Zulay Kraus, 02/05/2016 M.D. [id number] Tablets Potassium Chloride ER 2 tabs by mouth 360caps Arlen Henderson, 10/23/2015 10Meq daily. M.D. Capsules ER Selenium 1 tab po qd Unknown 200mcg Tablets History Medications Metoprolol Tartrate 1 by mouth 180tabs [facility], 04/07/2019 - twice a day M.D. 04/11/2019 50mg Tablets Prednisone 2 by mouth once 9tabs [facility], 04/07/2019 - 20mg daily M.D. 04/11/2019 Tablets Tramadol HCL 1 tablet every 10tabs M25.511 [facility], 04/07/2019 - 50mg 12 hours as M.D. 04/10/2019 Tablets needed for pain. Irbesartan take a half 30tabs Q87.410 Amita Raymon, 03/10/2019 - 75mg tab bid M.D. 04/08/2019 Tablets Lasix 1 by mouth 5tabs [facility], 02/18/2019 - 20mg Tablets every other day M.D. 02/23/2019 Medications Administered in Office Medication SIG Qnty Indications Ordering Provider Date Shingrix pharmacy administered Unknown 01/11/2019 Injection Inj, Regadenoson, 0.1 MG Edson Smith M.D. 07/22/2013 Injection Technetium TC 99M Tetrofosmin, Edson Smith M.D. 07/22/2013 Per Unit Dose Up To 40 Millicuries Injection Immunizations CPT Code Status Date Vaccine Lot # [id number] Given 10/09/2018 Influenza Virus Vaccine, Quadrivalent, Split, Preservative Free 69831 Given 07/19/2018 Zoster (Shingles) Vaccine (HZV), Recombinant, Subunit, Adjuvanted 05024 Given 07/19/2018 Zoster (Shingles) Vaccine (HZV), Recombinant, Subunit, Adjuvanted 86856 Given 10/20/2017 Influenza Virus Vaccine, Quadrivalent, Split, [id number] Preservative Free 96755 Given 11/26/2016 Influ Virus Vaccine, Quadrivalent, Split Virus, [place] [address] Given 2015 Influenza Virus Vaccine, Quadrivalent, Split, Preservative Free 40650 Given 10/17/2014 Tdap - Tetanus/Diptheria/Acellular Pertussis [id number] 69391 Given 10/17/2014 Flu Vaccine Split Virus Preservative Free For [id number] Indiv 3Yr Older 01317 Given 09/05/2013 Flu Vaccine Split Virus Preservative Free For [id number] Indiv 3Yr Older [id number] Given 09/01/2012 Fluzone Vaccine [id number] 31006 Given 01/30/2010 Influenza Virus Vaccine, Pandemic Formulation 28978 Given 01/30/2010 Administration Swine Flu Shot 47568 Given 01/05/2009 Influenza Virus 3Yrs & Over 20235 Given 11/24/2006 Influenza Virus 3Yrs & Over 37259 Given 11/24/2006 Influenza Virus 3Yrs & Over 92804 Given 2003 Td Toxoids Adsorbed For Use 7Yrs Or Older For Intramuscular Use Vital Signs Date Vital Result Comment 07/15/2019 10:33am Height 70.5 inches 5'10.50" Weight 159.00 lb w/o shoes Heart Rate 53 /min BP Systolic Sitting 99 mmHg Rue reg cuff BP Diastolic Sitting 67 mmHg Rue reg cuff BP Systolic Recheck 106 mmHg Rue reg cuff BP Diastolic Recheck 68 mmHg Rue reg cuff O2 % BldC Oximetry 98 % BMI (Body Mass Index) 22.5 kg/m2 06/24/2019 2:14pm Height 70.5 inches 5'10.50" Weight 157.00 lb without shoes Heart Rate 60 /min BP Systolic Sitting 108 mmHg Lue, reg cuff BP Diastolic Sitting 70 mmHg Lue, reg cuff BP Systolic Standing 98 mmHg Lue, reg cuff BP Diastolic Standing 74 mmHg Lue, reg cuff Respiratory Rate 18 /min BMI (Body Mass Index) 22.2 kg/m2 Ejection Fraction 55-60% Echo 03/13/19 Results Test Date Facility Test Result H/L Range Note CBC Auto 07/11/2019 [facility] White Blood 6.3 10^3/uL Normal 3.5-10.[address] [place] [address] [phone] Red Blood Count 4.84 10^6/uL Normal 3.70-4.87 Hemoglobin 13.3 g/dL Normal 12.0-16.0 Hematocrit 41 % Normal 35-47 Mean Corpuscular Volume 85 fL Normal 80-97 Mean Corpuscular Hemoglobin 28 pg Normal 27-31 Mean Corpuscular HGB Conc 33 g/dL Normal 31-36 Red Cell Distribution Width 15 % Normal 10-15 Platelet Count 75 10^3/uL Low 150-450 1 Mean Platelet Volume 9.5 fL Normal 7.4-10.4 Abs Neutrophils 4.2 10^3/uL Normal 1.5-7.7 Abs Lymphocytes 0.8 10^3/uL Low 1.0-4.8 Abs Monocytes 0.9 10^3/uL High 0-0.8 Abs Eosinophils 0.1 10^3/uL Normal 0-0.6 Abs Basophils 0.2 10^3/uL Normal 0-0.2 Abs Nucleated RBC 0.0 10^3/uL Granulocyte % 66.8 % Lymphocyte % 13.1 % Monocyte % 14.6 % Eosinophil % 2.3 % Basophil % 3.2 % Nucleated Red Blood Cells % 0.0 CBC Auto 07/04/2019 [facility] White Blood 7.2 10^3/uL Normal 3.5-10.[address] [place] [address] [phone] Red Blood Count 4.88 10^6/uL High 3.70-4.87 Hemoglobin 13.6 g/dL Normal 12.0-16.0 Hematocrit 41 % Normal 35-47 Mean Corpuscular Volume 85 fL Normal 80-97 Mean Corpuscular Hemoglobin 28 pg Normal 27-31 Mean Corpuscular HGB Conc 33 g/dL Normal 31-36 Red Cell Distribution Width 15 % Normal 10-15 Platelet Count 81 10^3/uL Low 150-450 2 Mean Platelet Volume 10.0 fL Normal 7.4-10.4 Abs Neutrophils 5.2 10^3/uL Normal 1.5-7.7 Abs Lymphocytes 0.7 10^3/uL Low 1.0-4.8 Abs Monocytes 0.9 10^3/uL High 0-0.8 Abs Eosinophils 0.1 10^3/uL Normal 0-0.6 Abs Basophils 0.2 10^3/uL Normal 0-0.2 Abs Nucleated RBC 0.0 10^3/uL Granulocyte % 72.9 % Lymphocyte % 10.3 % Monocyte % 12.3 % Eosinophil % 1.9 % Basophil % 2.6 % Nucleated Red Blood Cells % 0.0 CBC Auto 06/27/2019 [facility] White Blood 7.1 10^3/uL Normal 3.5-10.[address] [place] [address] [phone] Red Blood Count 4.97 10^6/uL High 3.70-4.87 Hemoglobin 13.8 g/dL Normal 12.0-16.0 Hematocrit 42 % Normal 35-47 Mean Corpuscular Volume 84 fL Normal 80-97 Mean Corpuscular Hemoglobin 28 pg Normal 27-31 Mean Corpuscular HGB Conc 33 g/dL Normal 31-36 Red Cell Distribution Width 15 % Normal 10-15 Platelet Count 75 10^3/uL Low 150-450 3 Mean Platelet Volume 9.6 fL Normal 7.4-10.4 Abs Neutrophils 5.0 10^3/uL Normal 1.5-7.7 Abs Lymphocytes 0.9 10^3/uL Low 1.0-4.8 Abs Monocytes 1.0 10^3/uL High 0-0.8 Abs Eosinophils 0.2 10^3/uL Normal 0-0.6 Abs Basophils 0.1 10^3/uL Normal 0-0.2 Abs Nucleated RBC 0.0 10^3/uL Granulocyte % 70.1 % Lymphocyte % 12.9 % Monocyte % 13.5 % Eosinophil % 2.5 % Basophil % 1.0 % Nucleated Red Blood Cells % 0.0 Laboratory test 06/21/2019 [facility] TSH Receptor <1.00 IU/L [address] [place] [address] [phone] Thyroperoxidase AB 933.31 IU/mL High <9 TSH (Thyroid Stim Horm) 1.18 mcIU/mL Normal 0.34-5.60 Free T4 (Free Thyroxine) 1.46 ng/dL High 0.61-1.12 CBC Auto 06/20/2019 [facility] White Blood 6.4 10^3/uL Normal 3.5-10.[address] [place] [address] [phone] Red Blood Count 4.80 10^6/uL Normal 3.70-4.87 Hemoglobin 13.6 g/dL Normal 12.0-16.0 Hematocrit 41 % Normal 35-47 Mean Corpuscular Volume 85 fL Normal 80-97 Mean Corpuscular Hemoglobin 28 pg Normal 27-31 Mean Corpuscular HGB Conc 33 g/dL Normal 31-36 Red Cell Distribution Width 14 % Normal 10-15 Platelet Count 87 10^3/uL Low 150-450 5 Mean Platelet Volume 9.8 fL Normal 7.4-10.4 Abs Neutrophils 4.1 10^3/uL Normal 1.5-7.7 Abs Lymphocytes 0.8 10^3/uL Low 1.0-4.8 Abs Monocytes 1.0 10^3/uL High 0-0.8 Abs Eosinophils 0.2 10^3/uL Normal 0-0.6 Abs Basophils 0.3 10^3/uL High 0-0.2 Abs Nucleated RBC 0.0 10^3/uL Granulocyte % 64.1 % Lymphocyte % 13.2 % Monocyte % 15.9 % Eosinophil % 2.7 % Basophil % 4.1 % Nucleated Red Blood Cells % 0.0 CBC Auto 06/13/2019 [facility] White Blood 7.2 10^3/uL Normal 3.5-10.[address] [place] [address] [phone] Red Blood Count 4.83 10^6/uL Normal 3.70-4.87 Hemoglobin 13.8 g/dL Normal 12.0-16.0 Hematocrit 41 % Normal 35-47 Mean Corpuscular Volume 85 fL Normal 80-97 Mean Corpuscular Hemoglobin 29 pg Normal 27-31 Mean Corpuscular HGB Conc 34 g/dL Normal 31-36 Red Cell Distribution Width 15 % Normal 10-15 Platelet Count 79 10^3/uL Low 150-450 6 Mean Platelet Volume 9.7 fL Normal 7.4-10.4 Abs Neutrophils 4.9 10^3/uL Normal 1.5-7.7 Abs Lymphocytes 0.8 10^3/uL Low 1.0-4.8 Abs Monocytes 1.0 10^3/uL High 0-0.8 Abs Eosinophils 0.2 10^3/uL Normal 0-0.6 Abs Basophils 0.2 10^3/uL Normal 0-0.2 Abs Nucleated RBC 0.0 10^3/uL Granulocyte % 68.5 % Lymphocyte % 11.6 % Monocyte % 13.8 % Eosinophil % 3.3 % Basophil % 2.8 % Nucleated Red Blood Cells % 0.0 Laboratory test 06/10/2019 [facility] Partial 38.1 High 26.0- 38.[address] [place] [address] Time PTT [phone] Inr/Protime 06/10/2019 [facility] Inr 1.14 High 0.82-1.[address] [place] [address] [phone] CBC Auto Diff 06/10/2019 [facility] White Blood 6.5 10^3/uL Normal 3.5-10.[address] [place] [address] [phone] Red Blood Count 4.80 10^6/uL Normal 3.70-4.87 Hemoglobin 13.3 g/dL Normal 12.0-16.0 Hematocrit 41 % Normal 35-47 Mean Corpuscular Volume 85 fL Normal 80-97 Mean Corpuscular Hemoglobin 28 pg Normal 27-31 Mean Corpuscular HGB Conc 33 g/dL Normal 31-36 Red Cell Distribution Width 14 % Normal 10-15 Platelet Count 77 10^3/uL Low 150-450 8 Mean Platelet Volume 9.5 fL Normal 7.4-10.4 Abs Neutrophils 4.0 10^3/uL Normal 1.5-7.7 Abs Lymphocytes 1.1 10^3/uL Normal 1.0-4.8 Abs Monocytes 1.0 10^3/uL High 0-0.8 Abs Eosinophils 0.2 10^3/uL Normal 0-0.6 Abs Basophils 0.1 10^3/uL Normal 0-0.2 Abs Nucleated RBC 0.0 10^3/uL Granulocyte % 62.2 % Lymphocyte % 16.9 % Monocyte % 15.2 % Eosinophil % 3.4 % Basophil % 2.3 % Nucleated Red Blood Cells % 0.1 Laboratory test 06/10/2019 [facility] B-Type 153 pg/mL High <= [address] [place] [address] Peptide BNP [phone] Troponin-I (TnI) 0.01 ng/mL <0.04 9 Laboratory test 06/10/2019 [facility] Magnesium 2.0 mg/dL Normal 1.9-2.[address] [place] [address] [phone] Creatine Kinase(CK) 26 U/L Normal 10-223 Lactic Acid 0.5 mmol/L Normal 0.5-2.0 10 Comp Metabolic 06/10/2019 [facility] Sodium 138 mmol/L Normal 135-[address] [place] [address] [phone] Potassium 4.2 mmol/L Normal 3.5-5.0 Chloride 106 mmol/L Normal 101-111 Co2 Carbon Dioxide 28 mmol/L Normal 22-32 Anion Gap 4 mmol/L Normal 2-11 Glucose 83 mg/dL Normal 70-100 Blood Urea Nitrogen 17 mg/dL Normal 6-24 Creatinine 0.77 mg/dL Normal 0.51-0.95 BUN/Creatinine Ratio 22.1 High 8-20 Calcium 9.1 mg/dL Normal 8.6-10.3 Total Protein 6.0 g/dL Low 6.4-8.9 Albumin 3.7 g/dL Normal 3.2-5.2 Globulin 2.3 g/dL Normal 2-4 Albumin/Globulin Ratio 1.6 Normal 1-3 Total Bilirubin 0.50 mg/dL Normal 0.2-1.0 Alkaline Phosphatase 43 U/L Normal 34-104 Alt 8 U/L Normal 7-52 Ast 13 U/L Normal 13-39 Egfr Non- 76.0 >60 Egfr 91.9 >60 11 CKMB 06/10/2019 [facility] CKMB ng/mL 1.1 ng/mL Normal 0.6- 6.[address] [place] [address] [phone] CBC Auto 06/08/2019 [facility] White Blood 7.1 10^3/uL Normal 3.5-10.[address] [place] [address] [phone] Red Blood Count 4.90 10^6/uL High 3.70-4.87 Hemoglobin 13.8 g/dL Normal 12.0-16.0 Hematocrit 42 % Normal 35-47 Mean Corpuscular Volume 85 fL Normal 80-97 Mean Corpuscular Hemoglobin 28 pg Normal 27-31 Mean Corpuscular HGB Conc 33 g/dL Normal 31-36 Red Cell Distribution Width 14 % Normal 10-15 Platelet Count 80 10^3/uL Low 150-450 12 Mean Platelet Volume 9.7 fL Normal 7.4-10.4 Abs Neutrophils 4.7 10^3/uL Normal 1.5-7.7 Abs Lymphocytes 1.0 10^3/uL Normal 1.0-4.8 Abs Monocytes 1.1 10^3/uL High 0-0.8 Abs Eosinophils 0.2 10^3/uL Normal 0-0.6 Abs Basophils 0.1 10^3/uL Normal 0-0.2 Abs Nucleated RBC 0.0 10^3/uL Granulocyte % 66.9 % Lymphocyte % 13.8 % Monocyte % 15.1 % Eosinophil % 3.2 % Basophil % 1.0 % Nucleated Red Blood Cells % 0.1 Type & Screen 05/31/2019 [facility] Patient Blood Type A Positive [address] [place] [address] [phone] Antibody Screen NEGATIVE CBC Auto 05/31/2019 [facility] White Blood 7.8 10^3/uL Normal 3.5-10.[address] [place] [address] [phone] Red Blood Count 4.88 10^6/uL High 3.70-4.87 Hemoglobin 13.7 g/dL Normal 12.0-16.0 Hematocrit 42 % Normal 35-47 Mean Corpuscular Volume 86 fL Normal 80-97 Mean Corpuscular Hemoglobin 28 pg Normal 27-31 Mean Corpuscular HGB Conc 33 g/dL Normal 31-36 Red Cell Distribution Width 15 % Normal 10-15 Platelet Count 98 10^3/uL Low 150-450 13 Mean Platelet Volume 10.5 fL High 7.4-10.4 Abs Neutrophils 5.2 10^3/uL Normal 1.5-7.7 Abs Lymphocytes 1.2 10^3/uL Normal 1.0-4.8 Abs Monocytes 1.1 10^3/uL High 0-0.8 Abs Eosinophils 0.2 10^3/uL Normal 0-0.6 Abs Basophils 0.1 10^3/uL Normal 0-0.2 Abs Nucleated RBC 0.0 10^3/uL Granulocyte % 66.4 % Lymphocyte % 14.8 % Monocyte % 13.9 % Eosinophil % 3.0 % Basophil % 1.9 % Nucleated Red Blood Cells % 0.0 Basic Metabolic 05/31/2019 [facility] Sodium 137 mmol/L Normal 135-[address] [place] [address] [phone] Potassium 4.4 mmol/L Normal 3.5-5.0 Chloride 103 mmol/L Normal 101-111 Co2 Carbon Dioxide 28 mmol/L Normal 22-32 Anion Gap 6 mmol/L Normal 2-11 Glucose 84 mg/dL Normal 70-100 Blood Urea Nitrogen 15 mg/dL Normal 6-24 Creatinine 0.75 mg/dL Normal 0.51-0.95 BUN/Creatinine Ratio 20.0 Normal 8-20 Calcium 9.1 mg/dL Normal 8.6-10.3 Egfr Non- 78.3 >60 Egfr 94.7 >60 14 Laboratory 05/31/2019 [facility] Magnesium 1.9 mg/dL Normal 1.9-2.[address] [place] [address] [phone] Laboratory 05/24/2019 [facility] Erythrocyte Sed 26 mm/Hr Normal 0-29 [address] [place] [address] [phone] Lyme Screen W/ Reflex To WB Negative Negative 16 CBC Auto 05/24/2019 [facility] White Blood 7.9 10^3/uL Normal 3.5-10.[address] [place] [address] [phone] Red Blood Count 4.82 10^6/uL Normal 3.70-4.87 Hemoglobin 13.8 g/dL Normal 12.0-16.0 Hematocrit 42 % Normal 35-47 Mean Corpuscular Volume 87 fL Normal 80-97 Mean Corpuscular Hemoglobin 29 pg Normal 27-31 Mean Corpuscular HGB Conc 33 g/dL Normal 31-36 Red Cell Distribution Width 15 % Normal 10-15 Platelet Count 114 10^3/uL Low 150-450 Mean Platelet Volume 10.5 fL High 7.4-10.4 Abs Neutrophils 5.2 10^3/uL Normal 1.5-7.7 Abs Lymphocytes 1.1 10^3/uL Normal 1.0-4.8 Abs Monocytes 1.3 10^3/uL High 0-0.8 Abs Eosinophils 0.2 10^3/uL Normal 0-0.6 Abs Basophils 0.2 10^3/uL Normal 0-0.2 Abs Nucleated RBC 0.0 10^3/uL Granulocyte % 65.7 % Lymphocyte % 14.0 % Monocyte % 16.2 % Eosinophil % 2.2 % Basophil % 1.9 % Nucleated Red Blood Cells % 0.1 CBC Auto 05/18/2019 [facility] White Blood 8.9 10^3/uL Normal 3.5-10.[address] [place] [address] [phone] Red Blood Count 4.73 10^6/uL Normal 3.70-4.87 Hemoglobin 13.7 g/dL Normal 12.0-16.0 Hematocrit 41 % Normal 35-47 Mean Corpuscular Volume 87 fL Normal 80-97 Mean Corpuscular Hemoglobin 29 pg Normal 27-31 Mean Corpuscular HGB Conc 33 g/dL Normal 31-36 Red Cell Distribution Width 15 % Normal 10-15 Platelet Count 108 10^3/uL Low 150-450 Mean Platelet Volume 9.3 fL Normal 7.4-10.4 Abs Neutrophils 6.3 10^3/uL Normal 1.5-7.7 Abs Lymphocytes 1.1 10^3/uL Normal 1.0-4.8 Abs Monocytes 1.4 10^3/uL High 0-0.8 Abs Eosinophils 0.1 10^3/uL Normal 0-0.6 Abs Basophils 0.0 10^3/uL Normal 0-0.2 Abs Nucleated RBC 0.0 10^3/uL Granulocyte % 70.8 % Lymphocyte % 11.9 % Monocyte % 15.2 % Eosinophil % 1.6 % Basophil % 0.5 % Nucleated Red Blood Cells % 0.2 Basic Metabolic 05/17/2019 [facility] Sodium 137 mmol/L Normal 135-[address] [place] [address] [phone] Potassium 4.3 mmol/L Normal 3.5-5.0 Chloride 103 mmol/L Normal 101-111 Co2 Carbon Dioxide 28 mmol/L Normal 22-32 Anion Gap 6 mmol/L Normal 2-11 Glucose 110 mg/dL High 70-100 Blood Urea Nitrogen 15 mg/dL Normal 6-24 Creatinine 0.82 mg/dL Normal 0.51-0.95 BUN/Creatinine Ratio 18.3 Normal 8-20 Calcium 8.9 mg/dL Normal 8.6-10.3 Egfr Non- 70.6 >60 Egfr 85.5 >60 17 Laboratory test 05/17/2019 [facility] Magnesium 2.0 mg/dL Normal 1.9-2.7 [address] [place] [address] [phone] TSH (Thyroid Stim Horm) 1.86 mcIU/mL Normal 0.34-5.60 19 T3 Free 2.80 pg/mL Normal 2.5-3.9 20 Free T4 (Free Thyroxine) 1.45 ng/dL High 0.61-1.12 21 CBC Auto 05/11/2019 [facility] White Blood 8.4 10^3/uL Normal 3.5-10.[address] [place] [address] [phone] Red Blood Count 4.58 10^6/uL Normal 3.70-4.87 Hemoglobin 13.2 g/dL Normal 12.0-16.0 Hematocrit 40 % Normal 35-47 Mean Corpuscular Volume 88 fL Normal 80-97 Mean Corpuscular Hemoglobin 29 pg Normal 27-31 Mean Corpuscular HGB Conc 33 g/dL Normal 31-36 Red Cell Distribution Width 15 % Normal 10-15 Platelet Count 73 10^3/uL Low 150-450 22 Mean Platelet Volume 9.5 fL Normal 7.4-10.4 Abs Neutrophils 6.3 10^3/uL Normal 1.5-7.7 Abs Lymphocytes 0.8 10^3/uL Low 1.0-4.8 Abs Monocytes 1.3 10^3/uL High 0-0.8 Abs Eosinophils 0.1 10^3/uL Normal 0-0.6 Abs Basophils 0.1 10^3/uL Normal 0-0.2 Abs Nucleated RBC 0.0 10^3/uL Granulocyte % 74.1 % Lymphocyte % 9.1 % Monocyte % 15.1 % Eosinophil % 1.0 % Basophil % 0.7 % Nucleated Red Blood Cells % 0.0 CBC Auto 05/04/2019 [facility] White Blood 10.2 10^3/uL Normal 3.5-10.[address] [place] [address] [phone] Red Blood Count 4.75 10^6/uL Normal 3.70-4.87 Hemoglobin 13.8 g/dL Normal 12.0-16.0 Hematocrit 42 % Normal 35-47 Mean Corpuscular Volume 88 fL Normal 80-97 Mean Corpuscular Hemoglobin 29 pg Normal 27-31 Mean Corpuscular HGB Conc 33 g/dL Normal 31-36 Red Cell Distribution Width 15 % Normal 10.5-15 Platelet Count 95 10^3/uL Low 150-450 23 Mean Platelet Volume 9.5 fL Normal 7.4-10.4 Abs Neutrophils 8.9 10^3/uL High 1.5-7.7 Abs Lymphocytes 0.5 10^3/uL Low 1.0-4.8 Abs Monocytes 0.7 10^3/uL Normal 0-0.8 Abs Eosinophils 0.0 10^3/uL Normal 0-0.6 Abs Basophils 0.0 10^3/uL Normal 0-0.2 Abs Nucleated RBC 0.0 10^3/uL Granulocyte % 87.5 % Lymphocyte % 4.6 % Monocyte % 7.3 % Eosinophil % 0.3 % Basophil % 0.3 % Nucleated Red Blood Cells % 0.1 CBC Auto 04/27/2019 [facility] White Blood 12.4 10^3/uL High 3.5-10.[address] [place] [address] [phone] Red Blood Count 4.69 10^6/uL Normal 3.70-4.87 Hemoglobin 13.3 g/dL Normal 12.0-16.0 Hematocrit 42 % Normal 35-47 Mean Corpuscular Volume 88 fL Normal 80-97 Mean Corpuscular Hemoglobin 28 pg Normal 27-31 Mean Corpuscular HGB Conc 32 g/dL Normal 31-36 Red Cell Distribution Width 15 % Normal 10.5-15 Platelet Count 45 10^3/uL Low 150-450 24 Mean Platelet Volume 10.5 fL High 7.4-10.4 Abs Neutrophils 10.0 10^3/uL High 1.5-7.7 Abs Lymphocytes 1.0 10^3/uL Normal 1.0-4.8 Abs Monocytes 1.1 10^3/uL High 0-0.8 Abs Eosinophils 0.1 10^3/uL Normal 0-0.6 Abs Basophils 0.1 10^3/uL Normal 0-0.2 Abs Nucleated RBC 0.0 10^3/uL Granulocyte % 80.9 % Lymphocyte % 8.5 % Monocyte % 8.9 % Eosinophil % 0.7 % Basophil % 1.0 % Nucleated Red Blood Cells % 0.3 Comp Metabolic 04/27/2019 [facility] Sodium 136 mmol/L Normal 135-[address] [place] [address] [phone] Potassium 4.2 mmol/L Normal 3.5-5.0 Chloride 103 mmol/L Normal 101-111 Co2 Carbon Dioxide 26 mmol/L Normal 22-32 Anion Gap 7 mmol/L Normal 2-11 Glucose 111 mg/dL High 70-100 Blood Urea Nitrogen 16 mg/dL Normal 6-24 Creatinine 0.84 mg/dL Normal 0.51-0.95 BUN/Creatinine Ratio 19.0 Normal 8-20 Calcium 8.9 mg/dL Normal 8.6-10.3 Total Protein 5.7 g/dL Low 6.4-8.9 Albumin 3.3 g/dL Normal 3.2-5.2 Globulin 2.4 g/dL Normal 2-4 Albumin/Globulin Ratio 1.4 Normal 1-3 Total Bilirubin 0.50 mg/dL Normal 0.2-1.0 Alkaline Phosphatase 32 U/L Low 34-104 Alt 9 U/L Normal 7-52 Ast 11 U/L Low 13-39 Egfr Non- 68.7 >60 Egfr 83.1 >60 25 CBC Auto 04/22/2019 [facility] White Blood 15.2 10^3/uL High 3.5-10.[address] [place] [address] [phone] Red Blood Count 4.88 10^6/uL High 3.70-4.87 Hemoglobin 14.2 g/dL Normal 12.0-16.0 Hematocrit 44 % Normal 35-47 Mean Corpuscular Volume 89 fL Normal 80-97 Mean Corpuscular Hemoglobin 29 pg Normal 27-31 Mean Corpuscular HGB Conc 33 g/dL Normal 31-36 Red Cell Distribution Width 15 % Normal 10.5-15 Platelet Count 47 10^3/uL Low 150-450 Mean Platelet Volume 10.8 fL High 7.4-10.4 Abs Neutrophils 14.0 10^3/uL High 1.5-7.7 Abs Lymphocytes 0.4 10^3/uL Low 1.0-4.8 Abs Monocytes 0.6 10^3/uL Normal 0-0.8 Abs Eosinophils 0.0 10^3/uL Normal 0-0.6 Abs Basophils 0.1 10^3/uL Normal 0-0.2 Abs Nucleated RBC 0.0 10^3/uL Granulocyte % 92.3 % Lymphocyte % 2.9 % Monocyte % 4.2 % Eosinophil % 0.3 % Basophil % 0.3 % Nucleated Red Blood Cells % 0.0 Comp Metabolic 04/22/2019 [facility] Sodium 135 mmol/L Normal 135-145 Panel [address] [place] [address] [phone] Potassium 4.3 mmol/L Normal 3.5-5.0 Chloride 102 mmol/L Normal 101-111 Co2 Carbon Dioxide 27 mmol/L Normal 22-32 Anion Gap 6 mmol/L Normal 2-11 Glucose 149 mg/dL High 70-100 Blood Urea Nitrogen 17 mg/dL Normal 6-24 Creatinine 0.76 mg/dL Normal 0.51-0.95 BUN/Creatinine Ratio 22.4 High 8-20 Calcium 9.3 mg/dL Normal 8.6-10.3 Total Protein 6.3 g/dL Low 6.4-8.9 Albumin 3.7 g/dL Normal 3.2-5.2 Globulin 2.6 g/dL Normal 2-4 Albumin/Globulin Ratio 1.4 Normal 1-3 Total Bilirubin 0.60 mg/dL Normal 0.2-1.0 Alkaline Phosphatase 31 U/L Low 34-104 Alt 11 U/L Normal 7-52 Ast 13 U/L Normal 13-39 Egfr Non- 77.1 >60 Egfr 93.3 >60 26 Laboratory test 04/22/2019 [facility] Magnesium 2.1 mg/dL Normal 1.9-2.7 finding [address] [place] [address] [phone] Comp Metabolic 04/15/2019 [facility] Sodium 133 mmol/L Low 135 -145 Panel [address] [place] [address] [phone] Potassium 3.9 mmol/L Normal 3.5-5.0 Chloride 104 mmol/L Normal 101-111 Co2 Carbon Dioxide 24 mmol/L Normal 22-32 Anion Gap 5 mmol/L Normal 2-11 Glucose 89 mg/dL Normal 70-100 Blood Urea Nitrogen 18 mg/dL Normal 6-24 Creatinine 0.66 mg/dL Normal 0.51-0.95 BUN/Creatinine Ratio 27.3 High 8-20 Calcium 8.1 mg/dL Low 8.6-10.3 Total Protein 5.4 g/dL Low 6.4-8.9 Albumin 3.2 g/dL Normal 3.2-5.2 Globulin 2.2 g/dL Normal 2-4 Albumin/Globulin Ratio 1.5 Normal 1-3 Total Bilirubin 0.60 mg/dL Normal 0.2-1.0 Alkaline Phosphatase 30 U/L Low 34-104 Alt 9 U/L Normal 7-52 Ast 11 U/L Low 13-39 Egfr Non- 90.7 >60 Egfr 109.8 >60 27 CBC Auto 04/15/2019 [facility] White Blood 9.7 10^3/uL Normal 3.5-10.[address] [place] [address] [phone] Red Blood Count 4.53 10^6/uL Normal 3.70-4.87 Hemoglobin 13.2 g/dL Normal 12.0-16.0 Hematocrit 41 % Normal 35-47 Mean Corpuscular Volume 90 fL Normal 80-97 Mean Corpuscular Hemoglobin 29 pg Normal 27-31 Mean Corpuscular HGB Conc 32 g/dL Normal 31-36 Red Cell Distribution Width 15 % Normal 10.5-15 Platelet Count 34 10^3/uL Low 150-450 28 Mean Platelet Volume 10.4 fL Normal 7.4-10.4 Abs Neutrophils 6.7 10^3/uL Normal 1.5-7.7 Abs Lymphocytes 1.9 10^3/uL Normal 1.0-4.8 Abs Monocytes 0.9 10^3/uL High 0-0.8 Abs Eosinophils 0.1 10^3/uL Normal 0-0.6 Abs Basophils 0.1 10^3/uL Normal 0-0.2 Abs Nucleated RBC 0.0 10^3/uL Granulocyte % 69.0 % Lymphocyte % 19.7 % Monocyte % 9.7 % Eosinophil % 1.0 % Basophil % 0.6 % Nucleated Red Blood Cells % 0.0 Comp Metabolic Panel 04/08/2019 [facility] Sodium 134 mmol/L Low 135-[address] [place] [address] [phone] Potassium 4.5 mmol/L Normal 3.5-5.0 Chloride 102 mmol/L Normal 101-111 Co2 Carbon Dioxide 27 mmol/L Normal 22-32 Anion Gap 5 mmol/L Normal 2-11 Glucose 106 mg/dL High 70-100 Blood Urea Nitrogen 21 mg/dL Normal 6-24 Creatinine 0.68 mg/dL Normal 0.51-0.95 BUN/Creatinine Ratio 30.9 High 8-20 Calcium 9.2 mg/dL Normal 8.6-10.3 Total Protein 6.3 g/dL Low 6.4-8.9 Albumin 3.6 g/dL Normal 3.2-5.2 Globulin 2.7 g/dL Normal 2-4 Albumin/Globulin Ratio 1.3 Normal 1-3 Total Bilirubin 0.60 mg/dL Normal 0.2-1.0 Alkaline Phosphatase 33 U/L Low 34-104 Alt 12 U/L Normal 7-52 Ast 13 U/L Normal 13-39 Egfr Non- 87.7 >60 Egfr 106.1 >60 29 CBC Auto 04/08/2019 [facility] White Blood 12.4 10^3/uL High 3.5-10.[address] [place] [address] [phone] Red Blood Count 4.52 10^6/uL Normal 3.70-4.87 Hemoglobin 13.1 g/dL Normal 12.0-16.0 Hematocrit 40 % Normal 35-47 Mean Corpuscular Volume 89 fL Normal 80-97 Mean Corpuscular Hemoglobin 29 pg Normal 27-31 Mean Corpuscular HGB Conc 33 g/dL Normal 31-36 Red Cell Distribution Width 16 % High 10.5-15 Abs Neutrophils 10.4 10^3/uL High 1.5-7.7 Platelet Count 58 10^3/uL Low 150-450 Mean Platelet Volume 10.0 fL Normal 7.4-10.4 Abs Lymphocytes 0.7 10^3/uL Low 1.0-4.8 Abs Monocytes 1.2 10^3/uL High 0-0.8 Abs Eosinophils 0.1 10^3/uL Normal 0-0.6 Abs Basophils 0.0 10^3/uL Normal 0-0.2 Abs Nucleated RBC 0.0 10^3/uL Granulocyte % 83.4 % Lymphocyte % 5.8 % Monocyte % 9.5 % Eosinophil % 1.1 % Basophil % 0.2 % Nucleated Red Blood Cells % 0.0 Laboratory test 03/29/2019 [facility] Troponin-I 0.01 <0.04 [address] (TnI) ng/[place] [address] [phone] CBC Auto Diff 03/29/2019 [facility] White Blood 11.7 High 3.5- 10.[address] Count 10^3/[place] [address] [phone] Red Blood Count 4.68 10^6/uL Normal 3.70-4.87 Hemoglobin 13.6 g/dL Normal 12.0-16.0 Hematocrit 42 % High 33-41 Mean Corpuscular Volume 89 fL Normal 80-97 Mean Corpuscular Hemoglobin 29 pg Normal 27-31 Mean Corpuscular HGB Conc 33 g/dL Normal 31-36 Red Cell Distribution Width 16 % High 10.5-15 Platelet Count 38 10^3/uL Low 150-450 31 Mean Platelet Volume 11.7 fL High 7.4-10.4 Abs Neutrophils 10.5 10^3/uL High 1.5-7.7 Abs Lymphocytes 0.7 10^3/uL Low 1.0-4.8 Abs Monocytes 0.5 10^3/uL Normal 0-0.8 Abs Eosinophils 0 10^3/uL Normal 0-0.6 Abs Basophils 0 10^3/uL Normal 0-0.2 Abs Nucleated RBC 0 10^3/uL Granulocyte % 89.5 % Lymphocyte % 6.1 % Monocyte % 4.0 % Eosinophil % 0.1 % Basophil % 0.3 % Nucleated Red Blood Cells % 0 Laboratory 03/29/2019 [facility] Lactic 3.7 Critical 0.5-2.0 32 test finding [address] Acid mmol/[place] [address] [phone] CBC Auto Diff 03/29/2019 [facility] White 16.4 High 3.5-10.[address] Blood 10^3/[place] [address] Count [phone] Red Blood Count 4.26 10^6/uL Normal 3.70-4.87 Hemoglobin 12.4 g/dL Normal 12.0-16.0 Hematocrit 38 % Normal 33-41 Mean Corpuscular Volume 90 fL Normal 80-97 Mean Corpuscular Hemoglobin 29 pg Normal 27-31 Mean Corpuscular HGB Conc 33 g/dL Normal 31-36 Red Cell Distribution Width 16 % High 10.5-15 Platelet Count 30 10^3/uL Low 150-450 33 Mean Platelet Volume 11.6 fL High 7.4-10.4 Abs Neutrophils 14.2 10^3/uL High 1.5-7.7 Abs Lymphocytes 0.9 10^3/uL Low 1.0-4.8 Abs Monocytes 1.2 10^3/uL High 0-0.8 Abs Eosinophils 0.1 10^3/uL Normal 0-0.6 Abs Basophils 0 10^3/uL Normal 0-0.2 Abs Nucleated RBC 0 10^3/uL Granulocyte % 86.5 % Lymphocyte % 5.6 % Monocyte % 7.2 % Eosinophil % 0.6 % Basophil % 0.1 % Nucleated Red Blood Cells % 0 Comp Metabolic Panel 03/29/2019 [facility] Sodium 130 mmol/L Low 135-145 [address] [place] [address] [phone] Potassium 4.8 mmol/L Normal 3.5-5.0 Chloride 99 mmol/L Low 101-111 Co2 Carbon Dioxide 27 mmol/L Normal 22-32 Anion Gap 4 mmol/L Normal 2-11 Glucose 103 mg/dL High 70-100 Blood Urea Nitrogen 21 mg/dL Normal 6-24 Creatinine 0.85 mg/dL Normal 0.51-0.95 BUN/Creatinine Ratio 24.7 High 8-20 Calcium 8.6 mg/dL Normal 8.6-10.3 Total Protein 6.6 g/dL Normal 6.4-8.9 Albumin 3.5 g/dL Normal 3.2-5.2 Globulin 3.1 g/dL Normal 2-4 Albumin/Globulin Ratio 1.1 Normal 1-3 Total Bilirubin 0.60 mg/dL Normal 0.2-1.0 Alkaline Phosphatase 38 U/L Normal 34-104 Alt 34 U/L Normal 7-52 Ast 25 U/L Normal 13-39 Egfr Non- 67.8 >60 Egfr 82.0 >60 34 Comp Metabolic Panel 03/29/2019 [facility] Sodium 130 mmol/L Low 135-145 [address] [place] [address] [phone] Potassium 4.5 mmol/L Normal 3.5-5.0 Chloride 97 mmol/L Low 101-111 Co2 Carbon Dioxide 24 mmol/L Normal 22-32 Anion Gap 9 mmol/L Normal 2-11 Glucose 150 mg/dL High 70-100 Blood Urea Nitrogen 21 mg/dL Normal 6-24 Creatinine 0.78 mg/dL Normal 0.51-0.95 BUN/Creatinine Ratio 26.9 High 8-20 Calcium 9.2 mg/dL Normal 8.6-10.3 Total Protein 7.5 g/dL Normal 6.4-8.9 Albumin 4.0 g/dL Normal 3.2-5.2 Globulin 3.5 g/dL Normal 2-4 Albumin/Globulin Ratio 1.1 Normal 1-3 Total Bilirubin 0.70 mg/dL Normal 0.2-1.0 Alkaline Phosphatase 47 U/L Normal 34-104 Alt 41 U/L Normal 7-52 Ast 25 U/L Normal 13-39 Egfr Non- 74.8 >60 Egfr 90.6 >60 35 Laboratory test 03/29/2019 [facility] B-Type 874 pg/mL High <= [address] [place] [address] Peptide BNP [phone] CBC Auto Diff 03/25/2019 [facility] White Blood 16.3 High 3.5- 10.[address] Count 10^3/[place] [address] [phone] Red Blood Count 4.22 10^6/uL Normal 3.70-4.87 Hemoglobin 12.5 g/dL Normal 12.0-16.0 Hematocrit 38 % Normal 33-41 Mean Corpuscular Volume 90 fL Normal 80-97 Mean Corpuscular Hemoglobin 30 pg Normal 27-31 Mean Corpuscular HGB Conc 33 g/dL Normal 31-36 Red Cell Distribution Width 16 % High 10.5-15 Platelet Count 10 10^3/uL Low 150-450 36 Mean Platelet Volume 11.3 fL High 7.4-10.4 Abs Neutrophils 13.2 10^3/uL High 1.5-7.7 Abs Lymphocytes 1.1 10^3/uL Normal 1.0-4.8 Abs Monocytes 1.9 10^3/uL High 0-0.8 Abs Eosinophils 0.1 10^3/uL Normal 0-0.6 Abs Basophils 0 10^3/uL Normal 0-0.2 Abs Nucleated RBC 0 10^3/uL Granulocyte % 81.0 % Lymphocyte % 6.9 % Monocyte % 11.6 % Eosinophil % 0.3 % Basophil % 0.2 % Nucleated Red Blood Cells % 0.1 Comp Metabolic Panel 03/25/2019 [facility] Sodium 134 mmol/L Low 135-[address] [place] [address] [phone] Potassium 4.4 mmol/L Normal 3.5-5.0 Chloride 104 mmol/L Normal 101-111 Co2 Carbon Dioxide 25 mmol/L Normal 22-32 Anion Gap 5 mmol/L Normal 2-11 Glucose 103 mg/dL High 70-100 Blood Urea Nitrogen 21 mg/dL Normal 6-24 Creatinine 0.73 mg/dL Normal 0.51-0.95 BUN/Creatinine Ratio 28.8 High 8-20 Calcium 8.9 mg/dL Normal 8.6-10.3 Total Protein 7.2 g/dL Normal 6.4-8.9 Albumin 3.5 g/dL Normal 3.2-5.2 Globulin 3.7 g/dL Normal 2-4 Albumin/Globulin Ratio 0.9 Low 1-3 Total Bilirubin 0.60 mg/dL Normal 0.2-1.0 Alkaline Phosphatase 36 U/L Normal 34-104 Alt 23 U/L Normal 7-52 Ast 14 U/L Normal 13-39 Egfr Non- 80.8 >60 Egfr 97.7 >60 37 CBC Auto 03/24/2019 [facility] White Blood 15.9 10^3/uL High 3.5-10.[address] [place] [address] [phone] Red Blood Count 4.26 10^6/uL Normal 3.70-4.87 Hemoglobin 12.5 g/dL Normal 12.0-16.0 Hematocrit 39 % Normal 33-41 Mean Corpuscular Volume 91 fL Normal 80-97 Mean Corpuscular Hemoglobin 29 pg Normal 27-31 Mean Corpuscular HGB Conc 32 g/dL Normal 31-36 Red Cell Distribution Width 17 % High 10.5-15 Platelet Count 7 10^3/uL Critical low 150-450 38 Mean Platelet Volume 10.2 fL Normal 7.4-10.4 Abs Neutrophils 13.1 10^3/uL High 1.5-7.7 Abs Lymphocytes 0.9 10^3/uL Low 1.0-4.8 Abs Monocytes 1.7 10^3/uL High 0-0.8 39 Abs Eosinophils 0.1 10^3/uL Normal 0-0.6 Abs Basophils 0 10^3/uL Normal 0-0.2 Abs Nucleated RBC 0 10^3/uL Granulocyte % 82.7 % Lymphocyte % 5.9 % Monocyte % 10.7 % Eosinophil % 0.4 % Basophil % 0.3 % Nucleated Red Blood Cells % 0 CBC Auto 03/22/2019 [facility] White Blood 11.1 10^3/uL High 3.5-10.[address] [place] [address] [phone] Red Blood Count 4.25 10^6/uL Normal 3.70-4.87 Hemoglobin 12.5 g/dL Normal 12.0-16.0 Hematocrit 38 % Normal 33-41 Mean Corpuscular Volume 90 fL Normal 80-97 Mean Corpuscular Hemoglobin 29 pg Normal 27-31 Mean Corpuscular HGB Conc 33 g/dL Normal 31-36 Red Cell Distribution Width 16 % High 10.5-15 Platelet Count 7 10^3/uL Critical low 150-450 40 Mean Platelet Volume 11.3 fL High 7.4-10.4 Abs Neutrophils 7.4 10^3/uL Normal 1.5-7.7 Abs Lymphocytes 1.2 10^3/uL Normal 1.0-4.8 Abs Monocytes 2.3 10^3/uL High 0-0.8 Abs Eosinophils 0.2 10^3/uL Normal 0-0.6 Abs Basophils 0 10^3/uL Normal 0-0.2 Abs Nucleated RBC 0 10^3/uL Granulocyte % 67.1 % Lymphocyte % 10.5 % Monocyte % 20.7 % Eosinophil % 1.5 % Basophil % 0.2 % Nucleated Red Blood Cells % 0 Inr/Protime 03/13/2019 [facility] Inr 1.32 High 0.77-1.[address] [place] [address] [phone] Laboratory test 03/13/2019 [facility] Partial 32.3 Normal 26.0 -36.[address] [place] [address] Time PTT [phone] Laboratory test 03/12/2019 [facility] LDH 185 U/L Normal 140- 271 [address] [place], [place] [id number] [phone] C Reactive Protein 3.35 mg/L Normal <8.01 Type & Screen 03/12/2019 [facility] Patient Blood Type A Positive [address] [place] [address] [phone] Antibody Screen NEGATIVE CBC Auto 03/12/2019 [facility] White Blood 11.0 10^3/uL High 3.5-10.[address] [place] [address] [phone] Red Blood Count 5.32 10^6/uL High 3.70-4.87 Hemoglobin 15.8 g/dL Normal 12.0-16.0 Hematocrit 47 % High 33-41 Mean Corpuscular Volume 89 fL Normal 80-97 Mean Corpuscular Hemoglobin 30 pg Normal 27-31 Mean Corpuscular HGB Conc 33 g/dL Normal 31-36 Red Cell Distribution Width 15 % Normal 10.5-15 Platelet Count 4 10^3/uL Critical low 150-450 41 Mean Platelet Volume 9.6 fL Normal 7.4-10.4 Abs Neutrophils 7.0 10^3/uL Normal 1.5-7.7 Abs Lymphocytes 1.7 10^3/uL Normal 1.0-4.8 Abs Monocytes 1.8 10^3/uL High 0-0.8 Abs Eosinophils 0.3 10^3/uL Normal 0-0.6 Abs Basophils 0.2 10^3/uL Normal 0-0.2 Abs Nucleated RBC 0 10^3/uL Granulocyte % 63.2 % Lymphocyte % 15.6 % Monocyte % 16.8 % Eosinophil % 2.6 % Basophil % 1.8 % Nucleated Red Blood Cells % 0.2 Retic Count 03/12/2019 [facility] Maturation Factor Retic 1.0 [address] [place] [address] [phone] RBC Retic Count 5.32 10^6/uL High 3.70-4.87 Hematocrit for Retic CNT 47 % High 33-41 Retic Count 2.5 % High 0.5-1.5 Corrected Retic Count 2.6 % High 0.5-1.5 Retic Index 2.60 Mean Retic Volume 118.2 Immature Retic Fraction 0.50 Laboratory test 03/12/2019 [facility] Folic Acid 9.33 ng/mL > 3.[address] (Folate) [place] [address] [phone] Vitamin B12 107 pg/mL Low 180-914 42 Comp Metabolic Panel 03/12/2019 [facility] Sodium 130 mmol/L Low 135-[address] [place] [address] [phone] Potassium 5.0 mmol/L Normal 3.5-5.0 Chloride 104 mmol/L Normal 101-111 Co2 Carbon Dioxide 23 mmol/L Normal 22-32 Anion Gap 3 mmol/L Normal 2-11 Glucose 119 mg/dL High 70-100 Blood Urea Nitrogen 16 mg/dL Normal 6-24 Creatinine 0.72 mg/dL Normal 0.51-0.95 BUN/Creatinine Ratio 22.2 High 8-20 Calcium 7.9 mg/dL Low 8.6-10.3 Total Protein 4.9 g/dL Low 6.4-8.9 Albumin 2.5 g/dL Low 3.2-5.2 Globulin 2.4 g/dL Normal 2-4 Albumin/Globulin Ratio 1.0 Normal 1-3 Total Bilirubin 1.00 mg/dL Normal 0.2-1.0 Alkaline Phosphatase 29 U/L Low 34-104 Alt 8 U/L Normal 7-52 Ast 13 U/L Normal 13-39 Egfr Non- 82.1 >60 Egfr 99.3 >60 43 Laboratory test 03/12/2019 [facility] Troponin-I (TnI) 0.03 ng/ mL <0.[address] [place] [address] [phone] B-Type Natriuretic Peptide BNP 29 pg/mL <=100 Lactic Acid 1.2 mmol/L Normal 0.5-2.0 45 Laboratory test 03/12/2019 [facility] Pathologist (SEE NOTE) [address] [place] [address] [phone] CBC Auto Diff 03/12/2019 [facility] White Blood 10.2 Normal 3.5- [address] Count 10^3/uL 10.8 [place] [address] [phone] Red Blood Count 5.23 10^6/uL High 3.70-4.87 Hemoglobin 15.3 g/dL Normal 12.0-16.0 Hematocrit 46 % High 33-41 Mean Corpuscular Volume 88 fL Normal 80-97 Mean Corpuscular Hemoglobin 29 pg Normal 27-31 Mean Corpuscular HGB Conc 33 g/dL Normal 31-36 Red Cell Distribution Width 16 % High 10.5-15 Platelet Count 4 10^3/uL Critical low 150-450 47 Mean Platelet Volume 10.6 fL High 7.4-10.4 Abs Neutrophils 6.4 10^3/uL Normal 1.5-7.7 Abs Lymphocytes 1.7 10^3/uL Normal 1.0-4.8 Abs Monocytes 1.7 10^3/uL High 0-0.8 Abs Eosinophils 0.2 10^3/uL Normal 0-0.6 Abs Basophils 0.1 10^3/uL Normal 0-0.2 Abs Nucleated RBC 0.1 10^3/uL Granulocyte % 62.5 % Lymphocyte % 16.7 % Monocyte % 17.0 % Eosinophil % 2.4 % Basophil % 1.4 % Nucleated Red Blood Cells % 0.4 CKMB 03/12/2019 [facility] CKMB ng/mL 2.0 ng/mL Normal 0.6- 6.3 [address] [place] [address] [phone] Basic Metabolic 03/01/2019 [facility] Sodium 135 mmol/L Normal 135-145 Panel [address] [place] [address] [phone] Potassium 4.6 mmol/L Normal 3.5-5.0 Chloride 105 mmol/L Normal 101-111 Co2 Carbon Dioxide 27 mmol/L Normal 22-32 Anion Gap 3 mmol/L Normal 2-11 Glucose 100 mg/dL Normal 70-100 Blood Urea Nitrogen 10 mg/dL Normal 6-24 Creatinine 0.62 mg/dL Normal 0.51-0.95 BUN/Creatinine Ratio 16.1 Normal 8-20 Calcium 8.1 mg/dL Low 8.6-10.3 Egfr Non- 97.5 >60 Egfr 118.0 >60 48 Laboratory test 03/01/2019 [facility] TSH (Thyroid 5.64 High 0.34-5.[address] Stim Horm) mcIU/mL [place], [place] [address] [phone] T3 Free 2.80 pg/mL Normal 2.5-3.9 Free T4 (Free Thyroxine) 0.82 ng/dL Normal 0.61-1.12 Comp Metabolic 02/17/2019 [facility] Sodium 136 mmol/L Normal 135-145 Panel [address] [place] [address] [phone] Potassium 4.7 mmol/L Normal 3.5-5.0 Chloride 103 mmol/L Normal 101-111 Co2 Carbon Dioxide 30 mmol/L Normal 22-32 Anion Gap 3 mmol/L Normal 2-11 Glucose 102 mg/dL High 70-100 Blood Urea Nitrogen 16 mg/dL Normal 6-24 Creatinine 0.61 mg/dL Normal 0.51-0.95 BUN/Creatinine Ratio 26.2 High 8-20 Calcium 8.6 mg/dL Normal 8.6-10.3 Total Protein 5.8 g/dL Low 6.4-8.9 Albumin 3.4 g/dL Normal 3.2-5.2 Globulin 2.4 g/dL Normal 2-4 Albumin/Globulin Ratio 1.4 Normal 1-3 Total Bilirubin 0.60 mg/dL Normal 0.2-1.0 Alkaline Phosphatase 39 U/L Normal 34-104 Alt 11 U/L Normal 7-52 Ast 16 U/L Normal 13-39 Egfr Non- 99.4 >60 Egfr 120.3 >60 49 Urinalysis Profile 02/17/2019 [facility] Urine Color Straw [address] [place] [address] [phone] Urine Appearance Clear Urine Specific [place] 1.009 Low 1.010-1.030 Urine pH 7.0 Normal 5-9 Urine Urobilinogen Negative Negative Urine Ketones Negative Negative Urine Protein Negative Negative Urine Leukocytes Negative Negative Urine Blood Negative Negative * * Abnormal Negative 50 Urine Nitrite Negative Negative Urine Bilirubin Negative Negative Urine Glucose Negative Negative Laboratory test 02/17/2019 [facility] TSH (Thyroid 8.89 High 0.34-5.[address] [facility] Stim Horm) mcIU/[place] [address] [phone] T3 Free 3.00 pg/mL Normal 2.5-3.9 Free T4 (Free Thyroxine) 1.12 ng/dL Normal 0.61-1.12 1 Consistent with Previous Results Reported on 07/04/19 2 Consistent with Previous Results Reported on 06/27/19 3 Consistent with Previous Results Reported on 06/20/19 4 REFERENCE VALUE 0.00 - 1.75 ADDITIONAL INFORMATION At a decision limit of 1.75 IU/L, this assay has 97% sensitivity and 99% specificity for detection of Graves' disease. In healthy individuals and in patients with thyroid disease without diagnosis of Graves' disease, the upper limit of anti-TSHR values are 1.22 IU/L and 1.58 IU/L, respectively (97.5th percentiles). Test Performed by: [facility] [address] [place] [address] 5 Consistent with Previous Results Reported on 06/13/19 6 Consistent with Previous Results Reported on 06/10/19 7 Standard intensity warfarin therapeutic range: 2.0-3.0 High intensity warfarin therapeutic range: 2.5-3.5 8 Consistent with Previous Results Reported on 06/08/19 9 Troponin-I testing on Plasma Separator Tubes (PST) has a known false positive rate of 0.20-0.40%. All positive troponins reflex immediately to secondary confirmatory testing. Using the [employer] DxI 800 Access Immunoassay systems, the 99th percentile upper reference limit was demonstrated to be < 0.03 ng/mL. 10 [facility] Severe Sepsis and Septic Shock [...] 5 Kidney failure <15 (or dialysis) 12 Consistent with Previous Results Reported on 04/22/19 13 Consistent with Previous Results Reported on 05/11/19 14 Because ethnic data is not always [...] 5 Kidney failure <15 (or dialysis) 15 Copy Result to: ARLEN HENDERSON ([id number]) 16 Copy Result to: ARLEN HENDERSON ([id number]) 17 Because ethnic data is not always [...] 5 Kidney failure <15 (or dialysis) 18 run stat Copy Result to: AMITA ENNIS ([id number]) 19 run stat Copy Result to: AMITA ENNIS ([id number]) 20 run stat Copy Result to: AMITA ENNIS ([id number]) 21 run stat Copy Result to: AMITA ENNIS ([id number]) 22 Consistent with Previous Results Reported on 05/04/19 23 Consistent with Previous Results Reported on 04/27/19 24 Consistent with Previous Results Reported on 04/22/19 25 Because ethnic data is not always [...] 5 Kidney failure <15 (or dialysis) 26 Because ethnic data is not always [...] 5 Kidney failure <15 (or dialysis) 28 Consistent with Previous Results Reported on 04/08/19 29 Because ethnic data is not always [...] 5 Kidney failure <15 (or dialysis) 30 Troponin-I testing on Plasma Separator Tubes (PST) has a known false positive rate of 0.20-0.40%. All positive troponins reflex immediately to secondary confirmatory testing. Using the [employer] DxI 800 Access Immunoassay systems, the 99th percentile upper reference limit was demonstrated to be < 0.03 ng/mL. 31 Consistent with Previous Results Reported on 03/29/19. 32 Critical Result LACT:3.7 Called to [id number] at: 16:27:23 by:[id number] Read back by:[id number] [facility] Severe Sepsis and Septic Shock Management Bundle Measure requires all lactic acids initially measuring >2.0 mmol/L be repeated. 33 Consistent with Previous Results Reported on 03/25/19 34 Because ethnic data is not always [...] 5 Kidney failure <15 (or dialysis) 36 Consistent with Previous Results Reported on 03/24/19 37 Because ethnic data is not always readily [...] 15-29 5 Kidney failure <15 (or dialysis) 38 Critical Result PLT:7 Called to and read back by: [id number] at: 03/24/2019 11:40:32 by:[id number] Consistent with Previous Results Reported on 03/22/19 Critical Result PLT:7 Called to and read back by: [id number] at: 03/24/2019 11:41:08 by:[id number] 39 Consistent with Previous Results Reported on 03/12/19 40 Verbal to [id number] by [id number] at 1115 on 03/22/19.Results read back accurately 41 Consistent with Previous Results Reported on 03/12/19. Verbal to [id number] by [id number] at 2335 on 03/12/19. Results read back accurately 42 Normal Range 180 to 914 Indeterminate Range 145 to 180 Deficient Range <145 43 Because ethnic data is not always [...] 5 Kidney failure <15 (or dialysis) 44 Troponin-I testing on Plasma Separator Tubes (PST) has a known false positive rate of 0.20-0.40%. All positive troponins reflex immediate secondary confirmatory testing. 45 [facility] Severe Sepsis and Septic Shock Management Bundle Measure requires all lactic acids initially measuring >2.0 mmol/L be repeated. 46 Marked thrombocytopenia. Reviewed by Gisela Ortega MD 47 Verbal to [id number] by [id number] at 2145 on 03/12/19. Results read back accurately 48 Because ethnic data is not always [...] 5 Kidney failure <15 (or dialysis) 49 Because ethnic data is not always [...] 5 Kidney failure <15 (or dialysis) 50 *Ascorbic acid is present which may interfere with detection of blood. Procedures Date Code Description Status 06/24/2019 31944 EKG Tracing & Interpretation Completed 05/24/2019 58002 EKG Tracing & Interpretation Completed 05/17/2019 79170 EKG Tracing & Interpretation Completed 05/02/2019 74372 EKG, Interpretation Only Completed 05/02/2019 96393 Cardioversion Completed 04/29/2019 77596 EKG Tracing & Interpretation Completed 04/27/2019 13246 Moderate Sedation Services; Same Phys Intl 15 Mins; PT Completed >= 5 Years 04/27/2019 97421 Color Flow Doppler/Interp & Reprt Completed 04/27/2019 39180 Pulse Wave/Continuous-Interp.RPT Completed 04/27/2019 66922 Echocardiography, Transesophageal, Real Time W/Image Completed 2D W/W/O M-M 04/27/2019 60435 EKG, Interpretation Only Completed 04/27/2019 25771 Cardioversion Completed 04/18/2019 75285 EKG Tracing & Interpretation Completed 04/11/2019 83807 EKG Tracing & Interpretation Completed 04/06/2019 54774 EKG, Interpretation Only Completed 04/05/2019 35176 EKG, Interpretation Only Completed 04/05/2019 35174 EKG, Interpretation Only Completed 04/04/2019 46025 Color Flow Doppler/Interp & Reprt Completed 04/04/2019 64774 Pulse Wave/Continuous-Interp.RPT Completed 04/04/2019 67016 Echocardiography, Transesophageal, Real Time W/Image Completed 2D W/W/O M-M 04/04/2019 31232 EKG, Interpretation Only Completed 04/04/2019 35701 EKG, Interpretation Only Completed 04/04/2019 05599 Cardioversion Completed 03/18/2019 30458 Cardioversion Completed 03/18/2019 06765 EKG, Interpretation Only Completed 03/18/2019 00346 EKG, Interpretation Only Completed 03/17/2019 31769 EKG, Interpretation Only Completed 03/17/2019 40893 EKG, Interpretation Only Completed 03/17/2019 79787 Cardioversion Completed 03/16/2019 65924 EKG, Interpretation Only Completed 03/16/2019 68715 EKG, Interpretation Only Completed 03/13/2019 42178 ECHO Transthorasic Realtime 2D W Doppler & Color Flow Completed Hosp 03/03/2019 93128 EKG Tracing & Interpretation Completed 02/10/2019 67376 ECHO Transthoracic, Real-Time 2D With Doppler And Completed Color Flow 02/10/2019 59103 ECHO Transthoracic, Real-Time 2D With Doppler And Completed Color Flow 01/25/2019 05099 EKG Tracing & Interpretation Completed 03/08/2018 [id number] Mammogram Completed 11/18/2017 [id number] Bone Mineral Density Test Completed 02/17/2017 [id number] Mammogram Completed 02/15/2016 [id number] Mammogram Completed 10/31/2014 [id number] Bone Mineral Density Test Completed 10/31/2014 [id number] Mammogram Completed 11/07/2013 [id number] Mammogram Completed 09/09/2012 [id number] Bone Mineral Density Test Completed 09/09/2012 [id number] Mammogram Completed 07/01/2011 [id number] Colonoscopy Completed 04/15/2011 [id number] Mammogram Completed 02/07/2010 [id number] Mammogram Completed 02/07/2010 [id number] Bone Mineral Density Test Completed Medical Devices Description No Information Available Encounters Type Date Location Provider Dx Diagnosis Office Visit 06/24/2019 [facility] Arlen Henderson, Q87.410 Marfan's syndrome 2:20p Of Entry Level Lab Technician M.D. 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 fibrillation D69.6 Thrombocytopenia, unspecified [facility] atrial TICKER MAINTAINER fibrillation D69.6 Thrombocytopenia, unspecified Z79.899 Other senior care (current) drug therapy M79.605 Pain in left leg Office Visit 04/12/2019 10:00a [facility] Internal Amita I48.0 Paroxysmal atrial Ninfa Ennis M.D. fibrillation Ccmob D69.6 Thrombocytopenia, unspecified M25.561 Pain in right knee K21.9 Gastro-esophageal reflux disease without esophagitis Office Visit 04/11/2019 3:00p [facility] Eric, I48.0 Paroxysmal atrial TICKER MAINTAINER fibrillation D69.6 Thrombocytopenia, unspecified E87.6 Hypokalemia Z79.899 Other bed bug exterminator (current) drug therapy Office Visit 04/06/2019 12:09p [facility] Cali Jc I48.0 Paroxysmal atrial Brittney Becker fibrillation I47.2 Ventricular tachycardia Z51.81 Encounter for therapeutic drug level monitoring E87.6 Hypokalemia Office Visit 04/06/2019 [facility] Davin I48.0 Paroxysmal atrial 9:38a Assoc,fatimah David M.D. fibrillation Hospitalists D69.6 Thrombocytopenia, unspecified I80.02 Phlebitis and thombophlb of superfic vessels of l low extrem Q87.40 Marfan's syndrome, unspecified E03.9 Hypothyroidism, unspecified Office Visit 04/05/2019 11:54a [facility] Edson Vogt I48.0 Paroxysmal atrial Of Latrell Smith M.D. fibrillation I47.2 Ventricular tachycardia Z51.81 Encounter for therapeutic drug level monitoring Office Visit 04/05/2019 9:38a [facility] Liat Dill, I48.0 Paroxysmal atrial Assoc,fatimah LIANG fibrillation Hospitalists D69.6 Thrombocytopenia, unspecified I80.02 Phlebitis and thombophlb of superfic vessels of l low extrem Q87.40 Marfan's syndrome, unspecified E03.9 Hypothyroidism, unspecified Office Visit 04/04/2019 9:37a [facility] Liat Dill, I48.0 Paroxysmal atrial Assoc,fatimah LIANG fibrillation Hospitalists D69.6 Thrombocytopenia, unspecified I80.02 Phlebitis and thombophlb of superfic vessels of l low extrem Q87.40 Marfan's syndrome, unspecified E03.9 Hypothyroidism, unspecified Office Visit 04/03/2019 9:37a [facility] Liat Dill, I48.0 Paroxysmal atrial Assoc,fatimah LIANG fibrillation Hospitalists D69.6 Thrombocytopenia, unspecified I80.02 Phlebitis and thombophlb of superfic vessels of l low extrem Q87.40 Marfan's syndrome, unspecified E03.9 Hypothyroidism, unspecified Office Visit 04/02/2019 9:37a [facility] Liat Dill, I48.0 Paroxysmal atrial Assoc,fatimah LIANG fibrillation Hospitalists D69.6 Thrombocytopenia, unspecified I80.02 Phlebitis and thombophlb of superfic vessels of l low extrem Q87.40 Marfan's syndrome, unspecified E03.9 Hypothyroidism, unspecified Office Visit 04/01/2019 9:36a [facility] Sandy I48.0 Paroxysmal atrial Assoc,fatimah Hurt M.D. fibrillation Hospitalists D69.6 Thrombocytopenia, unspecified R74.0 Nonspec elev of levels of transamns & lactic acid dehydrgnse I80.02 Phlebitis and thombophlb of superfic vessels of l low extrem Office Visit 03/31/2019 [facility] Jared Chaparro I48.91 Unspecified atrial 3:52p Of Latrell Garcia M.D., fibrillation [facility] Office Visit 03/31/2019 [facility] Sandy I48.0 Paroxysmal atrial 9:36a Assfatimah welsh M.D. fibrillation Hospitalists D69.6 Thrombocytopenia, unspecified R74.0 Nonspec elev of levels of transamns & lactic acid dehydrgnse Office Visit 03/30/2019 9:36a [facility] Sandy I48.0 Paroxysmal atrial Assoc,fatimah Hurt M.D. fibrillation Hospitalists D69.6 Thrombocytopenia, unspecified R74.0 Nonspec elev of levels of transamns & lactic acid dehydrgnse Office Visit 03/30/2019 [facility] Arlen Henderson I48.91 Unspecified atrial 2:55p Of Latrell Lugo fibrillation Office Visit 03/29/2019 [facility] Michael Vogt I48.0 Paroxysmal atrial 9:35a Assoc,fatimah Bragg, fibrillation Hospitalists Brittney,FACP D69.6 Thrombocytopenia, unspecified R79.89 Other specified abnormal findings of blood chemistry Office Visit 03/20/2019 [facility] D69.6 Thrombocytopenia, 9:10a Assoc,fatimah Bunch M.D. unspecified Hospitalists I48.91 Unspecified atrial fibrillation Q87.40 Marfan's syndrome, unspecified E88.09 Oth disorders of plasma-protein metabolism, NEC R60.9 Edema, unspecified E53.8 Deficiency of other specified B group vitamins G43.109 Migraine with aura, not intractable, w/o status migrainosus Office Visit 03/20/2019 3:48p [facility] Viktor Romo I48.0 Paroxysmal atrial Of Entry Level Lab Technician Pedro, DO fibrillation FACC Office Visit 03/19/2019 9:10a [facility] D69.6 Thrombocytopenia, Assoc,fatimah Bunch M.D. unspecified Hospitalists I48.91 Unspecified atrial fibrillation Q87.40 Marfan's syndrome, unspecified R60.9 Edema, unspecified E53.8 Deficiency of other specified B group vitamins G43.109 Migraine with aura, not intractable, w/o status migrainosus Office Visit 03/19/2019 3:36p [facility] Viktor Romo I48.0 Paroxysmal atrial Of Entry Level Lab Technician Pdero, DO fibrillation FACC Office Visit 03/18/2019 9:09a [facility] D69.6 Thrombocytopenia, Assoc,fatimah Bunch M.D. unspecified Hospitalists I48.91 Unspecified atrial fibrillation Q87.40 Marfan's syndrome, unspecified R60.0 Localized edema E53.8 Deficiency of other specified B group vitamins G43.109 Migraine with aura, not intractable, w/o status migrainosus Office Visit 03/18/2019 2:52p [facility] Viktor Romo I48.0 Paroxysmal atrial Of Entry Level Lab Technician Pedro, DO fibrillation FAC Q87.410 Marfan's syndrome with aortic dilation Q87.418 Marfan's syndrome with other cardiovascular manifestations I34.1 Nonrheumatic mitral (valve) prolapse R60.0 Localized edema D69.6 Thrombocytopenia, unspecified [facility] Thrombocytopenia, Visit 9:09a fatimah Evans, unspecified Hospitalists M.DJan,FACP E53.8 Deficiency of other specified B group vitamins R60.9 Edema, unspecified I48.91 Unspecified atrial fibrillation R68.81 Early satiety Office Visit 03/17/2019 2:39p [facility] Viktor Romo I48.0 Paroxysmal atrial Of [facility] Pedro, DO fibrillation FAC Q87.410 Marfan's syndrome with aortic dilation I34.1 Nonrheumatic mitral (valve) prolapse R60.0 Localized edema Q87.418 Marfan's syndrome with other cardiovascular manifestations Office 03/16/2019 [facility] Michael D. D69.6 Thrombocytopenia, Visit 9:09a fatimah Evans, unspecified Hospitalists MJuan,FACP E53.8 Deficiency of other specified B group vitamins R60.9 Edema, unspecified I48.91 Unspecified atrial fibrillation R68.81 Early satiety Office 03/15/2019 [facility] Michael Vogt D69.6 Thrombocytopenia, Visit 9:07a fatimah Evans, unspecified Hospitalists MJuan,FACP E53.8 Deficiency of other specified B group vitamins R60.9 Edema, unspecified I48.91 Unspecified atrial fibrillation Office 03/14/2019 [facility] Michael D. D69.6 Thrombocytopenia, Visit 9:07a fatimah Evans, unspecified Hospitalists M.DJan,FACP E53.8 Deficiency of other specified B group vitamins R60.9 Edema, unspecified I48.91 Unspecified atrial fibrillation Office Visit 03/13/2019 [facility] Ezequiel D69.6 Thrombocytopenia, 9:07a fatimah Evans M.D. unspecified Hospitalists I48.91 Unspecified atrial fibrillation R22.43 Localized swelling, mass and lump, lower limb, bilateral H02.402 Unspecified ptosis of left eyelid Office Visit 03/08/2019 10:20a [facility] Internal Amita R60.1 Generalized edema Medicine - Esvin Ennis M.D. Office Visit 03/03/2019 2:40p [facility] Arlen Henderson, R60.0 Localized edema Of Latrell Lugo I48.0 Paroxysmal atrial fibrillation Q87.410 Marfan's syndrome with aortic dilation I71.2 Thoracic aortic aneurysm, without rupture Office Visit 02/24/2019 9:30a Orth[facility] Ezequiel I83.10 Varicose veins of Services Of Brittney Call unsp lower C.M.A. extremity with inflammation M84.374D Stress fracture, right foot, subs for fx w formerly [facility] Office 02/22/2019 [facility] Internal Zulay I83.10 Varicose veins of Visit 4:00p Terrence Kraus M.D. unsp lower extremity with inflammation R60.0 Localized edema Office 02/17/2019 [facility] Internal Zulay R60.0 Localized edema Visit 1:20p Terrence Kraus M.D. Office 01/27/2019 [facility] Ezequiel M84.374D Stress fracture, Visit 9:30a C.M.A. Jakub, right foot, subs M.D. for fx w formerly [facility] Office 01/25/2019 [facility] Of Arlen I48.0 Paroxysmal Visit 9:45a alyssa Sun M.D. fibrillation Q87.410 Marfan's syndrome with aortic dilation I34.0 Nonrheumatic mitral (valve) insufficiency Assessments Date Code Description Provider 07/15/2019 M54.2 Cervicalgia Amita Ennis M.D. 07/15/2019 E78.5 Hyperlipidemia, unspecified Amita Ennis M.D. 07/15/2019 M81.0 Age-related osteoporosis without Amita Ennis M.D. current pathological fracture 07/15/2019 Z12.31 Encounter for screening mammogram Amita Ennis M.D. for malignant neoplasm of breast 07/13/2019 D69.6 Thrombocytopenia, unspecified Beto Samaniego MD, FACS 07/13/2019 I48.0 Paroxysmal atrial fibrillation Beto Samaniego MD, FACS 06/24/2019 Q87.410 Marfan's syndrome with aortic Arlen Henderson M.D. dilation 06/24/2019 I48.0 Paroxysmal atrial fibrillation Arlen Henderson M.D. 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 06/21/2019 Q87.410 Marfan's syndrome with aortic Cem Kc M.D. dilation 06/21/2019 R51 Headache Cem Kc M.D. 06/21/2019 D69.6 Thrombocytopenia, unspecified Cem Kc M.D. 06/21/2019 R94.02 Abnormal brain scan Cem Kc M.D. 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 05/26/2019 Z01.810 Encounter for preprocedural Arlen Henderson M.D. 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 05/26/2019 Q87.410 Marfan's syndrome with aortic Arlen Henderson M.D. dilation 05/26/2019 I34.0 Nonrheumatic mitral (valve) Arlen Henderson M.D. insufficiency 05/24/2019 I48.0 Paroxysmal atrial fibrillation Amita Ennis M.D. 05/24/2019 R51 Headache Amita Ennis M.D. 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 Beto Samaniego MD, FACS 05/19/2019 I48.0 Paroxysmal atrial fibrillation Beto Samaniego MD, FACS 05/17/2019 I48.0 Paroxysmal atrial fibrillation Jared Garcia M.D., [facility] 05/17/2019 I48.0 Paroxysmal atrial fibrillation Lety Reyes NP 05/17/2019 D69.6 Thrombocytopenia, unspecified Lety Reyes NP 05/17/2019 Z79.899 Other bed bug exterminator (current) drug Lety Reyes NP therapy 05/17/2019 I71.2 Thoracic aortic aneurysm, without Lety Reyes NP rupture 05/02/2019 R94.31 Abnormal electrocardiogram [ECG] Meir Bone M.D., [facility], [EKG] [facility] 05/02/2019 I48.0 Paroxysmal atrial fibrillation Edson Smith M.D. 04/29/2019 I48.0 Paroxysmal atrial fibrillation Arlen Henderson M.D. 04/29/2019 D69.6 Thrombocytopenia, unspecified Arlen Henderson M.D. 04/27/2019 R94.31 Abnormal electrocardiogram [ECG] Cali Becker M.D. [EKG] 04/27/2019 I48.0 Paroxysmal atrial fibrillation Arlen Henderson M.D. 04/18/2019 I48.0 Paroxysmal atrial fibrillation Arlen Henderson M.D. 04/18/2019 I48.0 Paroxysmal atrial fibrillation Lety Thuman, TICKER MAINTAINER 04/18/2019 D69.6 Thrombocytopenia, unspecified Lety Thuman, TICKER MAINTAINER 04/18/2019 Z79.899 Other senior care (current) drug Lety Thuman, TICKER MAINTAINER therapy 04/18/2019 M79.605 Pain in left leg Lety Thuman, TICKER MAINTAINER 04/12/2019 I48.0 Paroxysmal atrial fibrillation Amita Ennis M.D. 04/12/2019 D69.6 Thrombocytopenia, unspecified Amita Ennis M.D. 04/12/2019 M25.561 Pain in right knee Amita Ennis M.D. 04/12/2019 K21.9 Gastro-esophageal reflux disease Amita Ennis M.D. without esophagitis 04/11/2019 R94.31 Abnormal electrocardiogram [ECG] Arlen Henderson M.D. [EKG] 04/11/2019 I48.0 Paroxysmal atrial fibrillation Lety Thuman, TICKER MAINTAINER 04/11/2019 D69.6 Thrombocytopenia, unspecified Lety Thuman, TICKER MAINTAINER 04/11/2019 E87.6 Hypokalemia Lety Thuman, TICKER MAINTAINER 04/11/2019 Z79.899 Other senior care (current) drug Lety Thuman, TICKER MAINTAINER therapy 04/06/2019 R94.31 Abnormal electrocardiogram [ECG] Edson Smith M.D. [EKG] 04/06/2019 I48.0 Paroxysmal atrial fibrillation Davin David M.D. 04/06/2019 I48.0 Paroxysmal atrial fibrillation Cali Becker M.D. 04/06/2019 D69.6 Thrombocytopenia, unspecified Davin David M.D. 04/06/2019 I47.2 Ventricular tachycardia Cali Becker M.D. 04/06/2019 I80.02 Phlebitis and thombophlb of [facility] Davin David M.D. vessels of [facility] extrem 04/06/2019 Z51.81 Encounter for therapeutic drug level Cali Becker M.D. monitoring 04/06/2019 Q87.40 Marfan's syndrome, unspecified Davin David M.D. 04/06/2019 E87.6 Hypokalemia Cali Becker M.D. 04/06/2019 E03.9 Hypothyroidism, unspecified Davin David M.D. 04/05/2019 R94.31 Abnormal electrocardiogram [ECG] Edson Smith M.D. [EKG] 04/05/2019 I48.0 Paroxysmal atrial fibrillation Liat Parsons MD 04/05/2019 I48.0 Paroxysmal atrial fibrillation Edson Smith M.D. 04/05/2019 D69.6 Thrombocytopenia, unspecified Liat Parsons MD 04/05/2019 I47.2 Ventricular tachycardia Edson Smith M.D. 04/05/2019 I80.02 Phlebitis and thombophlb of [facility] Liat Parsons MD vessels of [facility] extrem 04/05/2019 Z51.81 Encounter for therapeutic drug level Edson Smith M.D. monitoring 04/05/2019 Q87.40 Marfan's syndrome, unspecified Liat Parsons MD 04/05/2019 E03.9 Hypothyroidism, unspecified Liat Parsons MD 04/04/2019 R94.31 Abnormal electrocardiogram [ECG] Edson Smith M.D. [EKG] 04/04/2019 I48.0 Paroxysmal atrial fibrillation Liat Parsons MD 04/04/2019 I48.91 Unspecified atrial fibrillation Edson Smith M.D. 04/04/2019 D69.6 Thrombocytopenia, unspecified Liat Parsons MD 04/04/2019 I80.02 Phlebitis and thombophlb of [facility] Liat Parsons MD vessels of l low extrem 04/04/2019 Q87.40 Marfan's syndrome, unspecified Liat Parsons MD 04/04/2019 E03.9 Hypothyroidism, unspecified Liat Parsons MD 04/03/2019 I48.0 Paroxysmal atrial fibrillation Liat Parsons MD 04/03/2019 D69.6 Thrombocytopenia, unspecified Liat Parsons MD 04/03/2019 I80.02 Phlebitis and thombophlb of [facility] Liat Parsons MD vessels of low extrem 04/03/2019 Q87.40 Marfan's syndrome, unspecified Liat Parsons MD 04/03/2019 E03.9 Hypothyroidism, unspecified Liat Parsons MD 04/02/2019 I48.0 Paroxysmal atrial fibrillation Liat Parsons MD 04/02/2019 D69.6 Thrombocytopenia, unspecified Liat Parsons MD 04/02/2019 I80.02 Phlebitis and thombophlb of [facility] Liat Parsons MD vessels of low extrem 04/02/2019 Q87.40 Marfan's syndrome, unspecified Liat Parsons MD 04/02/2019 E03.9 Hypothyroidism, unspecified Liat Parsons MD 04/01/2019 I48.0 Paroxysmal atrial fibrillation Sandy Hurt M.D. 04/01/2019 D69.6 Thrombocytopenia, unspecified Sandy Hurt M.D. 04/01/2019 R74.0 Nonspec elev of levels of transamns Sandy Hurt M.D. & lactic acid dehydrgnse 04/01/2019 I80.02 Phlebitis and thombophlb of [facility] Sandy Hurt M.D. vessels of l low extrem 03/31/2019 I48.0 Paroxysmal atrial fibrillation Sandy Hurt M.D. 03/31/2019 I48.91 Unspecified atrial fibrillation Jared Garcia M.D., [facility] 03/31/2019 D69.6 Thrombocytopenia, unspecified Sandy Hurt M.D. 03/31/2019 R74.0 Nonspec elev of levels of transamns Sandy Hurt M.D. & lactic acid dehydrgnse 03/30/2019 I48.0 Paroxysmal atrial fibrillation Sandy Hurt M.D. 03/30/2019 I48.91 Unspecified atrial fibrillation Arlen Henderson M.D. 03/30/2019 D69.6 Thrombocytopenia, unspecified Sandy Hurt M.D. 03/30/2019 R74.0 Nonspec elev of levels of transstephon Hurt M.D. & lactic acid dehydrgnse 03/29/2019 I48.0 Paroxysmal atrial fibrillation Michael Bragg M.D.,[facility] 03/29/2019 D69.6 Thrombocytopenia, unspecified Michael Bragg M.D.,[facility] 03/29/2019 R79.89 Other specified abnormal findings of Michael Bragg M.D.,[facility] blood chemistry 03/20/2019 D69.6 Thrombocytopenia, unspecified Yuriy Bunch M.D. 03/20/2019 I48.0 Paroxysmal atrial fibrillation Viktor Pedro, DO [facility] 03/20/2019 I48.91 Unspecified atrial fibrillation Yuriy Bunch M.D. 03/20/2019 Q87.40 Marfan's syndrome, unspecmargot Bunch M.D. 03/20/2019 E88.09 [facility] disorders of plasma-protein Yuriy Bunch M.D. metabolism, [facility] 03/20/2019 R60.9 Edema, unspecified Yuriy Bunch M.D. 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 group vitamins 03/20/2019 G43.109 Migraine with aura, not intractable, Yuriy Bunch M.D. w/o status migrainosus 03/19/2019 D69.6 Thrombocytopenia, unspecified Yuriy Bunch M.D. 03/19/2019 I48.0 Paroxysmal atrial fibrillation Viktor Pedro, DO [facility] 03/19/2019 I48.91 Unspecified atrial fibrillation Yuriy Bunch M.D. 03/19/2019 Q87.40 Marfan's syndrome, unspecified Yuriy Bunch M.D. 03/19/2019 R60.9 Edema, unspecified Yuriy Bunch M.D. 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 group vitamins 03/19/2019 G43.109 Migraine with aura, not intractable, Yuriy Bunch M.D. w/o status migrainosus 03/18/2019 R00.1 Bradycardia, unspecified Viktor Pedro, DO FACC 03/18/2019 D69.6 Thrombocytopenia, unspecified Yuriy Bunch M.D. 03/18/2019 I48.0 Paroxysmal atrial fibrillation Viktor Pedro, DO FACC 03/18/2019 I48.91 Unspecified atrial fibrillation Yuriy Bunch M.D. 03/18/2019 Q87.410 Marfan's syndrome with aortic Viktor Pedro, DO FACC dilation 03/18/2019 Q87.40 Marfan's syndrome, unspecified Yuriy Bunch M.D. 03/18/2019 Q87.418 Marfan's syndrome with other Viktor Pedro, DO [facility] cardiovascular manifestations 03/18/2019 R60.0 Localized edema Yuriy Bunch M.D. 03/18/2019 I34.1 Nonrheumatic mitral (valve) prolapse Viktor Pedro, DO FACC 03/18/2019 E53.8 Deficiency of other specified B Yuriy Bunch M.D. group vitamins 03/18/2019 R60.0 Localized edema Viktor Pedro, DO FACC 03/18/2019 G43.109 Migraine with aura, not intractable, Yuriy Bunch M.D. w/o status migrainosus 03/18/2019 D69.6 Thrombocytopenia, unspecified Viktor Pedro, DO FACC 03/17/2019 R94.31 Abnormal electrocardiogram [ECG] Viktor Pedro, DO [facility] [EKG] 03/17/2019 D69.6 Thrombocytopenia, unspecified Michael Bragg M.D.,FACP 03/17/2019 I48.0 Paroxysmal atrial fibrillation Viktor Pedro, DO FACC 03/17/2019 E53.8 Deficiency of other specified B Michael Bragg M.D., FACP group vitamins 03/17/2019 Q87.410 Marfan's syndrome with aortic [facility]jacky Pedro, [facility] 03/17/2019 R60.9 Edema, unspecified Michael Bragg M.D.,FACP 03/17/2019 I34.1 Nonrheumatic mitral (valve) prolapse Viktor Pedro, DO FACC 03/17/2019 I48.91 Unspecified atrial fibrillation Michael Bragg M.D., FACP 03/17/2019 I48.91 Unspecified atrial fibrillation Viktor Pedro, DO FAC 03/17/2019 R68.81 Early satiety Michael Bragg M.D.,FACP 03/17/2019 R60.0 Localized edema Viktor Pedro, DO [facility] 03/17/2019 Q87.418 Marfan's syndrome with other Viktor Pedro, DO [facility] cardiovascular manifestations 03/16/2019 R00.1 Bradycardia, unspecified Viktor Pedro, DO FACC 03/16/2019 D69.6 Thrombocytopenia, unspecified Michael Bragg M.D.,FACP 03/16/2019 E53.8 Deficiency of other specified B Michael Bragg M.D., FACP group vitamins 03/16/2019 R60.9 Edema, unspecified Michael Bragg M.D.,FACP 03/16/2019 I48.91 Unspecified atrial fibrillation Michael Bragg M.D., FACP 03/16/2019 R68.81 Early satiety Michael Bragg M.D.,FACP 03/15/2019 D69.6 Thrombocytopenia, unspecified Michael Bragg M.D.,FACP 03/15/2019 E53.8 Deficiency of other specified B Michael Bragg M.D., FACP group vitamins 03/15/2019 R60.9 Edema, unspecified Michael Bragg M.D.,FACP 03/15/2019 I48.91 Unspecified atrial fibrillation Michael Bragg M.D., [facility] 03/14/2019 D69.6 Thrombocytopenia, unspecified Michael Bragg M.D.,[facility] 03/14/2019 E53.8 Deficiency of other specified B [facility] M.D., [facility] group [facility] 03/14/2019 R60.9 Edema, unspecified Michael Bragg M.D.,[facility] 03/14/2019 I48.91 Unspecified atrial fibrillation Michael Bragg M.D., [facility] 03/13/2019 R06.02 Shortness of breath Cali Becker M.D. 03/13/2019 D69.6 Thrombocytopenia, unspecified Ezequiel Wells M.D. 03/13/2019 R60.9 Edema, unspecified Cali Becker M.D. 03/13/2019 I48.91 Unspecified atrial fibrillation Ezequiel Wells M.D. 03/13/2019 R22.43 Localized swelling, mass and lump, Ezequiel Wells M.D. lower limb, bilateral 03/13/2019 H02.402 Unspecified ptosis of left eyelid Ezequiel Wells M.D. 03/08/2019 R60.1 Generalized edema Amita Ennis M.D. 03/03/2019 R60.0 Localized edema Arlen Henderson M.D. 03/03/2019 I48.0 Paroxysmal atrial fibrillation Arlen Henderson M.D. 03/03/2019 Q87.410 Marfan's syndrome with aortic Arlen Henderson M.D. dilation 03/03/2019 I71.2 Thoracic aortic aneurysm, without Arlen Henderson M.D. rupture 02/24/2019 I83.10 Varicose veins of unspecified lower Ezequiel Call M.D. extremity with inflammat 02/24/2019 M84.374D Stress fracture, right foot, Ezequiel Call M.D. subsequent encounter for fractu 02/22/2019 I83.10 Varicose veins of unspecified lower Zulay Kraus M.D. extremity with inflammat 02/22/2019 R60.0 Localized edema Zulay Kraus M.D. 02/17/2019 R60.0 Localized edema Zulay Kraus M.D. 02/10/2019 I34.0 Nonrheumatic mitral (valve) Arlen Henderson M.D. insufficiency 02/10/2019 I34.0 Nonrheumatic mitral (valve) Traveling ECHO 2 insufficiency 01/27/2019 M84.374D Stress fracture, right foot, Ezequiel Call M.D. subsequent encounter for fractu 01/25/2019 I48.0 Paroxysmal atrial fibrillation Arlen Henderson M.D. 01/25/2019 Q87.410 Marfan's syndrome with aortic Arlen Henderson M.D. dilation 01/25/2019 I34.0 Nonrheumatic mitral (valve) Arlen Henderson M.D. insufficiency Plan of Treatment Future Appointment(s):01/13/2020 11:00 am - Amita Ennis M.D. at [facility] - [facility]08/03/2019 9:45 am - Radha Butterfield NP at [facility]08/03/2019 9:45 am - Beto Samaniego MD, FACS at [facility]07/22/2019 1:00 pm - Beto Samaniego MD, FACS at [facility]10/07/2019 2:20 pm - Arlen Henderson M.D. at [facility]07/15/2019 - Amita Ennis M.D.M54.2 CervicalgiaComments: Continue the FlexerilFollow up:PE in 6 qwxndjU46.5 Hyperlipidemia, unspecifiedComments:please do fasting cholesterol sometime this fallM81.0 Age- related osteoporosis without current pathological cgteaqbtU19.31 Encounter for screening mammogram for malignant neoplasm of breastNew Xrays:MG Screening Mammogram, Ordered: 07/15/19 Functional Status Description No Information Available Mental Status Description No Information Available Referrals Refer to Reason for Referral Status Appt Date Edgardo Hunt, PH.D. History of Marfan's, aneurysm, dissections Sent at [place] Location as soon as possible please. [address] [place] [address] [phone] Cem Kc M.D. Sent 06/21/[address] [place] [address] [place] [id number] [phone] Beto Samaniego MD FOR 06/14/19 ---[id number]--- INPATIENT Created [address] [place] [address] [phone] Darian Chaudhry MD Sent [address] [facility] [address] [place] [address] [phone] Raman Calderon MD Closed [address] [place], [place] [id number] [phone]
--- OUTSIDE RECORDS SUMMARY | 2019-08-03 07:14 | XMS REPORT | Continuity of Care Document ---
:1955 External Reference #:[id number] Author Name Beto Samaniego MD, FACS (transmitted by agent of provider Munira Nieves) Address [address] [facility] [place] [address] Care Team Providers Name Role Phone Other Physician Practices Care Team Information Vice President Of News Unavailable Amita Ennis MD - Internal Care Team Information Vice President [employer] [phone] Medicine Channing Coyle M.D. - Hematology & Care Team Information [employer] Oncology Arlen Henderson MD - Cardiovascular Care Team Information [employer] President [employer] Disease Cem Kc M.D. - Neurology Care Team Information [employer] President [employer] News [phone] Problems Active Problems Provider Date Marfan's syndrome Fern Jean M.D., FACP Onset: 03/17/2011 Hypothyroidism Fern Jean M.D., FACP Onset: 03/17/2011 Mitral valve disorder Meir Bone M.D., [facility] Onset: 09/13/2014 Note: mitral valave insufficiency Osteoporosis Zulay Kraus M.D. Onset: 11/07/2014 Scoliosis deformity of spine Zulay Kraus M.D. Onset: 11/07/2014 Tendinosis Zulay Kraus M.D. Onset: 02/19/2015 Note: rotatot cuff with AC joint OA Thoracic aortic ectasia Meir Bone M.D., [facility] Onset: 10/10/2015 Arachnoid cyst Zulay Kraus M.D. Onset: 10/23/2015 Note: L anterior fossa Disturbance in sleep behavior Yudi Louie MD Onset: 12/18/2015 Paroxysmal atrial fibrillation Meir Bone M.D., [facility] Onset: 2015 Headache Cem Kc M.D. Onset: 06/21/2019 Thrombocytopenic disorder Cem Kc M.D. Onset: 06/21/2019 Abnormal results function studies of Cem Kc M.D. Onset: 06/21/2019 central nervous system Social History Type Date Description Comments Sex Unknown ETOH Use Rarely consumes alcohol Tobacco Use Start: Unknown Patient has never smoked Recreational Drug Use Negative For Denies Drug Use Smoking Status Reviewed: 07/22/19 Patient has never smoked Exercise Type/Frequency Does [...] Magnesium Oxide 500MG 1 tab by mouth [facility], 04/18/2019 twice a day [employer] Metoprolol Tartrate take 1 tablet 60tabs I48.0 [facility], 04/11/2019 25mg oral twice a [employer] Tablets day. Amiodarone HCL 1 tab by mouth 90tabs I48.0 [facility], 04/11/2019 200mg every day with [employer] Tablets meal Eliquis 1 by mouth 60tabs [facility], 04/07/2019 5mg Tablets twice a day [employer] Vitamin B-12 1 by mouth Zulayvalarie Kraus, [...] Daily M.D. Tablets Calcium 600 + D 1 tab bid Zulay Kraus, 02/05/2016 M.D. [id number] Tablets Potassium Chloride ER 2 tabs by mouth 360caps Arlen Henderson, 10/23/2015 10Meq daily. M.D. Capsules ER Selenium 1 tab po qd Unknown 200mcg Tablets History Medications Metoprolol Tartrate 1 by mouth 180tabs [facility] Kraus, 04/07/2019 - twice a day M.D. 04/11/2019 50mg Tablets Prednisone 2 by mouth once 9tabs [facility], 04/07/2019 - 20mg daily M.D. 04/11/2019 Tablets Tramadol HCL 1 tablet every 10tabs M25.511 [facility], 04/07/2019 - 50mg 12 hours as M.D. 04/10/2019 Tablets needed for pain. Irbesartan take a half 30tabs Q87.410 Amita Raymon, 03/10/2019 - 75mg tab bid M.D. 04/08/2019 Tablets Lasix 1 by mouth 5tabs [facility], 02/18/2019 - 20mg Tablets every other day M.D. 02/23/2019 Medications Administered in Office Medication SIG Qnty Indications Ordering Provider Date Shingrix pharmacy administered Unknown 01/11/2019 Injection Inj, Regadenoson, 0.1 MG Edson Smith M.D. 07/22/2013 Injection Technetium TC 99M Tetrofosmin, Edson Smith M.D. 07/22/2013 Per Unit Dose Up To 40 Millicuries Injection Immunizations CPT Code Status Date Vaccine Lot # [id number] Given 10/09/2018 Influenza Virus Vaccine, Quadrivalent, Split, Preservative Free 15991 Given 07/19/2018 Zoster (Shingles) Vaccine (HZV), Recombinant, Subunit, Adjuvanted 55556 Given 07/19/2018 Zoster (Shingles) Vaccine (HZV), Recombinant, Subunit, Adjuvanted 65954 Given 10/20/2017 Influenza Virus Vaccine, Quadrivalent, Split, [id number] Preservative Free 82522 Given 11/26/2016 Influ Virus Vaccine, Quadrivalent, Split Virus, [place] [address] Given 2015 Influenza Virus Vaccine, Quadrivalent, Split, Preservative Free 89619 Given 10/17/2014 Tdap - Tetanus/Diptheria/Acellular Pertussis [id number] 48726 Given 10/17/2014 Flu Vaccine Split Virus Preservative Free For [id number] Indiv 3Yr Older 71318 Given 09/05/2013 Flu Vaccine Split Virus Preservative Free For [id number] Indiv 3Yr Older [id number] Given 09/01/2012 Fluzone Vaccine [id number] 33642 Given 01/30/2010 Influenza Virus Vaccine, Pandemic Formulation 86739 Given 01/30/2010 Administration Swine Flu Shot 76907 Given 01/05/2009 Influenza Virus 3Yrs & Over 08109 Given 11/24/2006 Influenza Virus 3Yrs & Over 03890 Given 11/24/2006 Influenza Virus 3Yrs & Over 92438 Given 2003 Td Toxoids Adsorbed For Use 7Yrs Or Older For Intramuscular Use Vital Signs Date Vital Result Comment 07/22/2019 1:00pm Height 70.5 inches 5'10.50" Weight 158.00 lb Heart Rate 66 /min BP Systolic Sitting 112 mmHg BP Diastolic Sitting 70 mmHg Respiratory Rate 16 /min Body Temperature 97.1 F BMI (Body Mass Index) 22.3 kg/m2 07/15/2019 10:33am Height 70.5 inches 5'10.50" Weight 159.00 lb w/o shoes Heart Rate 53 /min BP Systolic Sitting 99 mmHg Rue reg cuff BP Diastolic Sitting 67 mmHg Rue reg cuff BP Systolic Recheck 106 mmHg Rue reg cuff BP Diastolic Recheck 68 mmHg Rue reg cuff O2 % BldC Oximetry 98 % BMI (Body Mass Index) 22.5 kg/m2 Results Test Date Facility Test Result H/L Range Note Lipid Profile 07/19/2019 [facility] Triglycerides 160 mg/dL 1 (Trig/Chol/HDL) [address] [place] [address] [phone] Cholesterol 199 mg/dL 2 HDL Cholesterol 44.7 mg/dL 3 LDL Cholesterol 122 mg/dL 4 Laboratory test 07/19/2019 [facility] Vitamin D 44.4 ng/mL Normal 20-50 [address] Total 25(Oh) [place], [place] [id number] [phone] CBC Auto Diff 07/18/2019 [facility] White Blood 8.1 Normal 3.5 -10.[address] Count 10^3/[place] [address] [phone] Red Blood Count 4.93 10^6/uL High 3.70-4.87 Hemoglobin 13.7 g/dL Normal 12.0-16.0 Hematocrit 41 % Normal 35-47 Mean Corpuscular Volume 84 fL Normal 80-97 Mean Corpuscular Hemoglobin 28 pg Normal 27-31 Mean Corpuscular HGB Conc 33 g/dL Normal 31-36 Red Cell Distribution Width 15 % Normal 10-15 Platelet Count 77 10^3/uL Low 150-450 6 Mean Platelet Volume 9.3 fL Normal 7.4-10.4 Abs Neutrophils 6.0 10^3/uL Normal 1.5-7.7 Abs Lymphocytes 0.9 10^3/uL Low 1.0-4.8 Abs Monocytes 1.0 10^3/uL High 0-0.8 Abs Eosinophils 0.1 10^3/uL Normal 0-0.6 Abs Basophils 0.2 10^3/uL Normal 0-0.2 Abs Nucleated RBC 0.0 10^3/uL Granulocyte % 73.7 % Lymphocyte % 10.8 % Monocyte % 11.9 % Eosinophil % 1.4 % Basophil % 2.2 % Nucleated Red Blood Cells % 0.0 CBC Auto 07/11/2019 [facility] White Blood 6.3 10^3/uL Normal 3.5-10.[address] Count [place], [place] [id number] [phone] Red Blood Count 4.84 10^6/uL Normal 3.70-4.87 Hemoglobin 13.3 g/dL Normal 12.0-16.0 Hematocrit 41 % Normal 35-47 Mean Corpuscular Volume 85 fL Normal 80-97 Mean Corpuscular Hemoglobin 28 pg Normal 27-31 Mean Corpuscular HGB Conc 33 g/dL Normal 31-36 Red Cell Distribution Width 15 % Normal 10-15 Platelet Count 75 10^3/uL Low 150-450 7 Mean Platelet Volume 9.5 fL Normal 7.4-10.4 [...] Blood Cells % 0.0 CBC Auto 07/04/2019 [facility] White Blood 7.2 10^3/uL Normal 3.5-10.[address] [place] [address] [phone] Red Blood Count 4.88 10^6/uL High 3.70-4.87 Hemoglobin 13.6 g/dL Normal 12.0-16.0 Hematocrit 41 % Normal 35-47 Mean Corpuscular Volume 85 fL Normal 80-97 Mean Corpuscular Hemoglobin 28 pg Normal 27-31 Mean Corpuscular HGB Conc 33 g/dL Normal 31-36 Red Cell Distribution Width 15 % Normal 10-15 Platelet Count 81 10^3/uL Low 150-450 8 Mean Platelet Volume 10.0 fL Normal 7.4-10.4 [...] Blood Cells % 0.0 CBC Auto 06/27/2019 [facility] White Blood 7.1 10^3/uL Normal 3.5-10.[address] [place] [address] [phone] Red Blood Count 4.97 10^6/uL High 3.70-4.87 Hemoglobin 13.8 g/dL Normal 12.0-16.0 Hematocrit 42 % Normal 35-47 Mean Corpuscular Volume 84 fL Normal 80-97 Mean Corpuscular Hemoglobin 28 pg Normal 27-31 Mean Corpuscular HGB Conc 33 g/dL Normal 31-36 Red Cell Distribution Width 15 % Normal 10-15 Platelet Count 75 10^3/uL Low 150-450 9 Mean Platelet Volume 9.6 fL Normal 7.4-10.4 [...] Blood Cells % 0.0 Laboratory test 06/21/2019 [facility] TSH Receptor <1.00 IU/L [address] [place] [address] [phone] Thyroperoxidase AB 933.31 IU/mL High <9 TSH (Thyroid Stim Horm) 1.18 mcIU/mL Normal 0.34-5.60 Free T4 (Free Thyroxine) 1.46 ng/dL High 0.61-1.12 CBC Auto 06/20/2019 [facility] White Blood 6.4 10^3/uL Normal 3.5-10.[address] [place] [address] [phone] Red Blood Count 4.80 10^6/uL Normal 3.70-4.87 Hemoglobin 13.6 g/dL Normal 12.0-16.0 Hematocrit 41 % Normal 35-47 Mean Corpuscular Volume 85 fL Normal 80-97 Mean Corpuscular Hemoglobin 28 pg Normal 27-31 Mean Corpuscular HGB Conc 33 g/dL Normal 31-36 Red Cell Distribution Width 14 % Normal 10-15 Platelet Count 87 10^3/uL Low 150-450 11 Mean Platelet Volume 9.8 fL Normal 7.4-10.4 [...] Blood Cells % 0.0 CBC Auto 06/13/2019 [facility] White Blood 7.2 10^3/uL Normal 3.5-10.[address] [place] [address] [phone] Red Blood Count 4.83 10^6/uL Normal 3.70-4.87 Hemoglobin 13.8 g/dL Normal 12.0-16.0 Hematocrit 41 % Normal 35-47 Mean Corpuscular Volume 85 fL Normal 80-97 Mean Corpuscular Hemoglobin 29 pg Normal 27-31 Mean Corpuscular HGB Conc 34 g/dL Normal 31-36 Red Cell Distribution Width 15 % Normal 10-15 Platelet Count 79 10^3/uL Low 150-450 12 Mean Platelet Volume [...] Red Blood Cells % 0.0 CBC Auto 06/10/2019 [facility] White Blood 6.5 10^3/uL Normal 3.5-10.[address] [place] [address] [phone] Red Blood Count 4.80 10^6/uL Normal 3.70-4.87 Hemoglobin 13.3 g/dL Normal 12.0-16.0 Hematocrit 41 % Normal 35-47 Mean Corpuscular Volume 85 fL Normal 80-97 Mean Corpuscular Hemoglobin 28 pg Normal 27-31 Mean Corpuscular HGB Conc 33 g/dL Normal 31-36 Red Cell Distribution Width 14 % Normal 10-15 Platelet Count 77 10^3/uL Low 150-450 13 Mean Platelet Volume 9.5 fL Normal 7.4-10.4 [...] Nucleated Red Blood Cells % 0.1 Laboratory 06/10/2019 [facility] Partial Thrombo 38.1 High 26.0-38.[address] [place] [address] [phone] Laboratory 06/10/2019 [facility] B-Type 153 pg/mL High <=[address] [place] [address] Peptide BNP [phone] Troponin-I (TnI) 0.01 ng/mL <0.04 14 CKMB 06/10/2019 [facility] CKMB ng/mL 1.1 ng/mL Normal 0.6- 6.[address] [place] [address] [phone] Comp Metabolic 06/10/2019 [facility] Sodium 138 mmol/L Normal 135-[address] [place] [address] [phone] Potassium 4.2 mmol/L Normal 3.5-5.0 Chloride 106 [...] Egfr Non- 76.0 >60 Egfr 91.9 >60 15 Inr/Protime 06/10/2019 [facility] Inr 1.14 High 0.82-1.[address] [place] [address] [phone] Laboratory test 06/10/2019 [facility] Magnesium 2.0 mg/dL Normal 1.9-2.[address] [place] [address] [phone] Creatine Kinase(CK) 26 U/L Normal 10-223 Lactic Acid 0.5 mmol/L Normal 0.5-2.0 17 CBC Auto 06/08/2019 [facility] White Blood 7.1 10^3/uL Normal 3.5-10.[address] [place] [address] [phone] Red Blood Count 4.90 10^6/uL High 3.70-4.87 Hemoglobin 13.8 g/dL Normal 12.0-16.0 Hematocrit 42 % Normal 35-47 Mean Corpuscular Volume 85 fL Normal 80-97 Mean Corpuscular Hemoglobin 28 pg Normal 27-31 Mean Corpuscular HGB Conc 33 g/dL Normal 31-36 Red Cell Distribution Width 14 % Normal 10-15 Platelet Count 80 10^3/uL Low 150-450 18 Mean Platelet Volume 9.7 fL Normal 7.4-10.4 [...] Red Blood Cells % 0.1 CBC Auto 05/31/2019 [facility] White Blood 7.8 10^3/uL Normal 3.5-10.[address] [place] [address] [phone] Red Blood Count 4.88 10^6/uL High 3.70-4.87 Hemoglobin 13.7 g/dL Normal 12.0-16.0 Hematocrit 42 % Normal 35-47 Mean Corpuscular Volume 86 fL Normal 80-97 Mean Corpuscular Hemoglobin 28 pg Normal 27-31 Mean Corpuscular HGB Conc 33 g/dL Normal 31-36 Red Cell Distribution Width 15 % Normal 10-15 Platelet Count 98 10^3/uL Low 150-450 19 Mean Platelet Volume 10.5 fL High 7.4-10.4 [...] Blood Cells % 0.0 Basic Metabolic 05/31/2019 [facility] Sodium 137 mmol/L Normal 135-[address] [place] [address] [phone] Potassium 4.4 mmol/L Normal 3.5-5.0 Chloride 103 mmol/L Normal 101-111 Co2 Carbon Dioxide 28 mmol/L Normal 22-32 Anion Gap 6 mmol/L Normal 2-11 Glucose 84 mg/dL Normal 70-100 Blood Urea Nitrogen 15 mg/dL Normal 6-24 Creatinine 0.75 mg/dL Normal 0.51-0.95 BUN/Creatinine Ratio 20.0 Normal 8-20 Calcium 9.1 mg/dL Normal 8.6-10.3 Egfr Non- 78.3 >60 Egfr 94.7 >60 20 Laboratory 05/31/2019 [facility] Magnesium 1.9 mg/dL Normal 1.9-2.7 test finding [address] [place] [address] [phone] Type & Screen 05/31/2019 [facility] Patient Blood A Positive [address] [place] [address] [phone] Antibody Screen NEGATIVE Laboratory test 05/24/2019 [facility] Erythrocyte Sed 26 mm/Hr Normal 0-29 [address] [place] [address] [phone] Lyme Screen W/ Reflex To WB Negative Negative 22 CBC Auto 05/24/2019 [facility] White Blood 7.9 10^3/uL Normal 3.5-10.[address] [place] [address] [phone] Red Blood Count 4.82 10^6/uL Normal 3.70-4.87 [...] Blood Cells % 0.1 CBC Auto 05/18/2019 [facility] White Blood 8.9 10^3/uL Normal 3.5-10.[address] [place] [address] [phone] Red Blood Count 4.73 10^6/uL Normal 3.70-4.87 [...] % Nucleated Red Blood Cells % 0.2 Laboratory test 05/17/2019 [facility] Magnesium 2.0 mg/dL Normal 1.9-2.7 23 finding [address] [place] [address] [phone] TSH (Thyroid Stim Horm) 1.86 mcIU/mL Normal 0.34-5.60 24 T3 Free 2.80 pg/mL Normal 2.5-3.9 25 Free T4 (Free Thyroxine) 1.45 ng/dL High 0.61-1.12 26 Basic Metabolic 05/17/2019 [facility] Sodium 137 mmol/L Normal 135-145 Panel [address] [place] [address] [phone] Potassium 4.3 mmol/L Normal 3.5-5.0 Chloride 103 mmol/L Normal 101-111 Co2 Carbon Dioxide 28 mmol/L Normal 22-32 Anion Gap 6 mmol/L Normal 2-11 Glucose 110 mg/dL High 70-100 Blood Urea Nitrogen 15 mg/dL Normal 6-24 Creatinine 0.82 mg/dL Normal 0.51-0.95 BUN/Creatinine Ratio 18.3 Normal 8-20 Calcium 8.9 mg/dL Normal 8.6-10.3 Egfr Non- 70.6 >60 Egfr 85.5 >60 27 CBC Auto 05/11/2019 [facility] White Blood 8.4 10^3/uL Normal 3.5-10.[address] [place] [address] [phone] Red Blood Count 4.58 10^6/uL Normal 3.70-4.87 Hemoglobin 13.2 g/dL Normal 12.0-16.0 Hematocrit 40 % Normal 35-47 Mean Corpuscular Volume 88 fL Normal 80-97 Mean Corpuscular Hemoglobin 29 pg Normal 27-31 Mean Corpuscular HGB Conc 33 g/dL Normal 31-36 Red Cell Distribution Width 15 % Normal 10-15 Platelet Count 73 10^3/uL Low 150-450 28 Mean Platelet Volume 9.5 fL Normal 7.4-10.4 [...] Blood Cells % 0.0 CBC Auto 05/04/2019 [facility] White Blood 10.2 10^3/uL Normal 3.5-10.[address] [place] [address] [phone] Red Blood Count 4.75 10^6/uL Normal 3.70-4.87 Hemoglobin 13.8 g/dL Normal 12.0-16.0 Hematocrit 42 % Normal 35-47 Mean Corpuscular Volume 88 fL Normal 80-97 Mean Corpuscular Hemoglobin 29 pg Normal 27-31 Mean Corpuscular HGB Conc 33 g/dL Normal 31-36 Red Cell Distribution Width 15 % Normal 10.5-15 Platelet Count 95 10^3/uL Low 150-450 29 Mean Platelet Volume 9.5 fL Normal 7.4-10.4 [...] Blood Cells % 0.1 CBC Auto 04/27/2019 [facility] White Blood 12.4 10^3/uL High 3.5-10.[address] [place] [address] [phone] Red Blood Count 4.69 10^6/uL Normal 3.70-4.87 Hemoglobin 13.3 g/dL Normal 12.0-16.0 Hematocrit 42 % Normal 35-47 Mean Corpuscular Volume 88 fL Normal 80-97 Mean Corpuscular Hemoglobin 28 pg Normal 27-31 Mean Corpuscular HGB Conc 32 g/dL Normal 31-36 Red Cell Distribution Width 15 % Normal 10.5-15 Platelet Count 45 10^3/uL Low 150-450 30 Mean Platelet Volume 10.5 fL High 7.4-10.4 [...] Blood Cells % 0.3 Comp Metabolic 04/27/2019 [facility] Sodium 136 mmol/L Normal 135-[address] [place] [address] [phone] Potassium 4.2 mmol/L Normal 3.5-5.0 Chloride 103 [...] Egfr Non- 68.7 >60 Egfr 83.1 >60 31 Laboratory test 04/22/2019 [facility] Magnesium 2.1 mg/dL Normal 1.9-2.[address] [place] [address] [phone] Comp Metabolic 04/22/2019 [facility] Sodium 135 mmol/L Normal 135-145 Panel [address] [place], [place] [address] [phone] Potassium 4.3 mmol/L Normal 3.5-5.0 Chloride 102 [...] Egfr Non- 77.1 >60 Egfr 93.3 >60 32 CBC Auto 04/22/2019 [facility] White Blood 15.2 10^3/uL High 3.5-10.[address] [place] [address] [phone] Red Blood Count 4.88 10^6/uL High 3.70-4.87 [...] Blood Cells % 0.0 Comp Metabolic Panel 04/15/2019 [facility] Sodium 133 mmol/L Low 135-[address] [place] [address] [phone] Potassium 3.9 mmol/L Normal 3.5-5.0 Chloride 104 [...] Egfr Non- 90.7 >60 Egfr 109.8 >60 33 CBC Auto 04/15/2019 [facility] White Blood 9.7 10^3/uL Normal 3.5-10.[address] [place] [address] [phone] Red Blood Count 4.53 10^6/uL Normal 3.70-4.87 Hemoglobin 13.2 g/dL Normal 12.0-16.0 Hematocrit 41 % Normal 35-47 Mean Corpuscular Volume 90 fL Normal 80-97 Mean Corpuscular Hemoglobin 29 pg Normal 27-31 Mean Corpuscular HGB Conc 32 g/dL Normal 31-36 Red Cell Distribution Width 15 % Normal 10.5-15 Platelet Count 34 10^3/uL Low 150-450 34 Mean Platelet Volume 10.4 fL Normal 7.4-10.4 [...] Cells % 0.0 Comp Metabolic Panel 04/08/2019 [facility] Sodium 134 mmol/L Low 135-[address] [place] [address] [phone] Potassium 4.5 mmol/L Normal 3.5-5.0 Chloride 102 [...] Egfr Non- 87.7 >60 Egfr 106.1 >60 35 CBC Auto 04/08/2019 [facility] White Blood 12.4 10^3/uL High 3.5-10.[address] [place] [address] [phone] Red Blood Count 4.52 10^6/uL Normal 3.70-4.87 [...] Blood Cells % 0.0 Laboratory test 03/29/2019 [facility] Troponin-I 0.01 <0.04 [address] (TnI) ng/[place] [address] [phone] CBC Auto Diff 03/29/2019 [facility] White Blood 11.7 High 3.5- 10.[address] Count 10^3/[place] [address] [phone] Red Blood Count 4.68 10^6/uL Normal 3.70-4.87 Hemoglobin 13.6 g/dL Normal 12.0-16.0 Hematocrit 42 % High 33-41 Mean Corpuscular Volume 89 fL Normal 80-97 Mean Corpuscular Hemoglobin 29 pg Normal 27-31 Mean Corpuscular HGB Conc 33 g/dL Normal 31-36 Red Cell Distribution Width 16 % High 10.5-15 Platelet Count 38 10^3/uL Low 150-450 37 Mean Platelet Volume 11.7 fL High 7.4-10.4 [...] Red Blood Cells % 0 Laboratory 03/29/2019 [facility] Lactic 3.7 Critical 0.5-2.0 38 test finding [address] Acid mmol/[place] [address] [phone] CBC Auto Diff 03/29/2019 [facility] White 16.4 High 3.5-10.[address] Blood 10^3/[place] [address] Count [phone] Red Blood Count 4.26 10^6/uL Normal 3.70-4.87 Hemoglobin 12.4 g/dL Normal 12.0-16.0 Hematocrit 38 % Normal 33-41 Mean Corpuscular Volume 90 fL Normal 80-97 Mean Corpuscular Hemoglobin 29 pg Normal 27-31 Mean Corpuscular HGB Conc 33 g/dL Normal 31-36 Red Cell Distribution Width 16 % High 10.5-15 Platelet Count 30 10^3/uL Low 150-450 39 Mean Platelet Volume 11.6 fL High 7.4-10.4 [...] Cells % 0 Comp Metabolic Panel 03/29/2019 [facility] Sodium 130 mmol/L Low 135-145 [address] [place] [address] [phone] Potassium 4.8 mmol/L Normal 3.5-5.0 Chloride 99 [...] Egfr Non- 67.8 >60 Egfr 82.0 >60 40 Comp Metabolic Panel 03/29/2019 [facility] Sodium 130 mmol/L Low 135-145 [address] [place] [address] [phone] Potassium 4.5 mmol/L Normal 3.5-5.0 Chloride 97 [...] Egfr Non- 74.8 >60 Egfr 90.6 >60 41 Laboratory test 03/29/2019 [facility] B-Type 874 pg/mL High <= [address] [place] [address] Peptide BNP [phone] CBC Auto Diff 03/25/2019 [facility] White Blood 16.3 High 3.5- 10.[address] Count 10^3/[place] [address] [phone] Red Blood Count 4.22 10^6/uL Normal 3.70-4.87 Hemoglobin 12.5 g/dL Normal 12.0-16.0 Hematocrit 38 % Normal 33-41 Mean Corpuscular Volume 90 fL Normal 80-97 Mean Corpuscular Hemoglobin 30 pg Normal 27-31 Mean Corpuscular HGB Conc 33 g/dL Normal 31-36 Red Cell Distribution Width 16 % High 10.5-15 Platelet Count 10 10^3/uL Low 150-450 42 Mean Platelet Volume 11.3 fL High 7.4-10.4 [...] Cells % 0.1 Comp Metabolic Panel 03/25/2019 [facility] Sodium 134 mmol/L Low 135-[address] [place] [address] [phone] Potassium 4.4 mmol/L Normal 3.5-5.0 Chloride 104 [...] Egfr Non- 80.8 >60 Egfr 97.7 >60 43 CBC Auto 03/24/2019 [facility] White Blood 15.9 10^3/uL High 3.5-10.[address] [place] [address] [phone] Red Blood Count 4.26 10^6/uL Normal 3.70-4.87 Hemoglobin 12.5 g/dL Normal 12.0-16.0 Hematocrit 39 % Normal 33-41 Mean Corpuscular Volume 91 fL Normal 80-97 Mean Corpuscular Hemoglobin 29 pg Normal 27-31 Mean Corpuscular HGB Conc 32 g/dL Normal 31-36 Red Cell Distribution Width 17 % High 10.5-15 Platelet Count 7 10^3/uL Critical low 150-450 44 Mean Platelet Volume 10.2 fL Normal 7.4-10.4 Abs Neutrophils 13.1 10^3/uL High 1.5-7.7 Abs Lymphocytes 0.9 10^3/uL Low 1.0-4.8 Abs Monocytes 1.7 10^3/uL High 0-0.8 45 Abs Eosinophils 0.1 10^3/uL Normal 0-0.6 Abs Basophils 0 10^3/uL Normal 0-0.2 Abs Nucleated RBC 0 10^3/uL Granulocyte % 82.7 % Lymphocyte % 5.9 % Monocyte % 10.7 % Eosinophil % 0.4 % Basophil % 0.3 % Nucleated Red Blood Cells % 0 CBC Auto 03/22/2019 [facility] White Blood 11.1 10^3/uL High 3.5-10.[address] [place] [address] [phone] Red Blood Count 4.25 10^6/uL Normal 3.70-4.87 Hemoglobin 12.5 g/dL Normal 12.0-16.0 Hematocrit 38 % Normal 33-41 Mean Corpuscular Volume 90 fL Normal 80-97 Mean Corpuscular Hemoglobin 29 pg Normal 27-31 Mean Corpuscular HGB Conc 33 g/dL Normal 31-36 Red Cell Distribution Width 16 % High 10.5-15 Platelet Count 7 10^3/uL Critical low 150-450 46 Mean Platelet Volume 11.3 fL High 7.4-10.4 [...] Nucleated Red Blood Cells % 0 Laboratory 03/13/2019 [facility] Partial 32.3 Normal 26.0- 36.3 test finding [address] [place] [address] PTT [phone] Inr/Protime 03/13/2019 [facility] Inr 1.32 High 0.77-1.[address] [place] [address] [phone] Laboratory 03/12/2019 [facility] Pathologist (SEE NOTE) 47 test finding [address] Review [place] [id number] [phone] CBC Auto Diff 03/12/2019 [facility] White Blood 10.2 Normal 3.5-10.[address] Count 10^3/[place] [address] [phone] Red Blood Count 5.23 10^6/uL High 3.70-4.87 Hemoglobin 15.3 g/dL Normal 12.0-16.0 Hematocrit 46 % High 33-41 Mean Corpuscular Volume 88 fL Normal 80-97 Mean Corpuscular Hemoglobin 29 pg Normal 27-31 Mean Corpuscular HGB Conc 33 g/dL Normal 31-36 Red Cell Distribution Width 16 % High 10.5-15 Platelet Count 4 10^3/uL Critical low 150-450 48 Mean Platelet Volume 10.6 fL High 7.4-10.4 [...] Red Blood Cells % 0.4 CKMB 03/12/2019 [facility] CKMB 2.0 ng/mL Normal 0.6-6.[address] ng/[place] [address] [phone] Laboratory test 03/12/2019 [facility] Troponin-I 0.03 ng/mL < 0.[address] (TnI) [place] [address] [phone] B-Type Natriuretic Peptide BNP 29 pg/mL <=100 Lactic Acid 1.2 mmol/L Normal 0.5-2.0 50 Comp Metabolic Panel 03/12/2019 [facility] Sodium 130 mmol/L Low 135-[address] [place] [address] [phone] Potassium 5.0 mmol/L Normal 3.5-5.0 Chloride 104 [...] Egfr Non- 82.1 >60 Egfr 99.3 >60 51 Laboratory test 03/12/2019 [facility] Folic Acid 9.33 ng/mL > 3.[address] (Folate) [place] [address] [phone] Vitamin B12 107 pg/mL Low 180-914 52 Retic Count 03/12/2019 [facility] Maturation Factor Retic 1.[address] [place] [address] [phone] RBC Retic Count 5.32 10^6/uL High 3.70-4.87 Hematocrit for Retic CNT 47 % High 33-41 Retic Count 2.5 % High 0.5-1.5 Corrected Retic Count 2.6 % High 0.5-1.5 Retic Index 2.60 Mean Retic Volume 118.2 Immature Retic Fraction 0.50 CBC Auto 03/12/2019 [facility] White Blood 11.0 10^3/uL High 3.5-10.[address] [place] [address] [phone] Red Blood Count 5.32 10^6/uL High 3.70-4.87 Hemoglobin 15.8 g/dL Normal 12.0-16.0 Hematocrit 47 % High 33-41 Mean Corpuscular Volume 89 fL Normal 80-97 Mean Corpuscular Hemoglobin 30 pg Normal 27-31 Mean Corpuscular HGB Conc 33 g/dL Normal 31-36 Red Cell Distribution Width 15 % Normal 10.5-15 Platelet Count 4 10^3/uL Critical low 150-450 53 Mean Platelet Volume 9.6 fL Normal 7.4-10.4 [...] Cells % 0.2 Type & Screen 03/12/2019 [facility] Patient [place] [address] [phone] Antibody Screen NEGATIVE Laboratory test finding 03/12/2019 [facility] LDH 185 U/L Normal 140-271 [place] [address] [phone] C Reactive Protein 3.35 mg/L Normal <8.01 Laboratory test 03/01/2019 [facility] TSH (Thyroid 5.64 High 0.34-5.60 finding [facility] Stim Horm) mcIU/[place] [address] [phone] T3 Free 2.80 pg/mL Normal 2.5-3.9 Free T4 (Free Thyroxine) 0.82 ng/dL Normal 0.61-1.12 Basic Metabolic 03/01/2019 [facility] Sodium 135 mmol/L Normal 135-145 [place] [address] [phone] Potassium 4.6 mmol/L Normal 3.5-5.0 Chloride 105 mmol/L Normal 101-111 Co2 Carbon Dioxide 27 mmol/L Normal 22-32 Anion Gap 3 mmol/L Normal 2-11 Glucose 100 mg/dL Normal 70-100 Blood Urea Nitrogen 10 mg/dL Normal 6-24 Creatinine 0.62 mg/dL Normal 0.51-0.95 BUN/Creatinine Ratio 16.1 Normal 8-20 Calcium 8.1 mg/dL Low 8.6-10.3 Egfr Non- 97.5 >60 Egfr 118.0 >60 54 Comp Metabolic 02/17/2019 [facility] Sodium 136 mmol/L Normal 135-145 [place] [address] [phone] Potassium 4.7 mmol/L Normal 3.5-5.0 Chloride 103 [...] Egfr Non- 99.4 >60 Egfr 120.3 >60 55 Urinalysis Profile 02/17/2019 [facility] Urine Color Straw [address] [place] [address] [phone] Urine Appearance Clear Urine Specific Perry 1.009 Low 1.010-1.030 Urine pH 7.0 Normal 5-9 Urine Urobilinogen Negative Negative Urine Ketones Negative Negative Urine Protein Negative Negative Urine Leukocytes Negative Negative Urine Blood Negative Negative * * Abnormal Negative 56 Urine Nitrite Negative Negative Urine Bilirubin Negative Negative Urine Glucose Negative Negative Laboratory test 02/17/2019 [facility] TSH (Thyroid 8.89 High 0.34-5.[address] Stim Horm) mcIU/[place] [address] [phone] T3 Free 3.00 pg/mL Normal 2.5-3.9 Free T4 (Free Thyroxine) 1.12 ng/dL Normal 0.61-1.12 1 Desirable: <150 Borderline High: 150-199 High: 200-499 Very High: >500 2 Desirable: <200 Borderline High: 200-239 High: >239 3 Low: <40 Desirable: 40-60 High: >60 4 Desirable: <100 Near Optimal: 100-129 Borderline High: 130-159 High: 160-189 Very High: >189 5 Total 25-Hydroxyvitamin D2 and D3 (25-OH-VitD) <10 ng/mL (severe deficiency) 10-19 ng/mL (mild to moderate deficiency) 20-50 ng/mL (optimum levels) 51-80 ng/mL (increased risk of hypercalciuria) >80 ng/mL (toxicity possible) 6 Consistent with Previous Results Reported on 07/11/19 7 Consistent with Previous Results Reported on 07/04/19 8 Consistent with Previous Results Reported on 06/27/19 9 Consistent with Previous Results Reported on 06/20/19 10 REFERENCE VALUE 0.00 - 1.75 ADDITIONAL INFORMATION At a decision limit of 1.75 IU/L, this assay has 97% sensitivity and 99% specificity for detection of Graves' disease. In healthy individuals and in patients with thyroid disease without diagnosis of Graves' disease, the upper limit of anti-TSHR values are 1.22 IU/L and 1.58 IU/L, respectively (97.5th percentiles). Test Performed by: [facility] [address] [place] [address] 11 Consistent with Previous Results Reported on 06/13/19 12 Consistent with Previous Results Reported on 06/10/19 13 Consistent with Previous Results Reported on 06/08/19 14 Troponin-I testing on Plasma Separator Tubes (PST) has a known false positive rate of 0.20-0.40%. All positive troponins reflex immediately to secondary confirmatory testing. Using the [employer] QuestI 800 Access Immunoassay systems, the 99th percentile upper reference limit was demonstrated to be < 0.03 ng/mL. 15 Because ethnic data is not always [...] 5 Kidney failure <15 (or dialysis) 16 Standard intensity warfarin therapeutic range: 2.0-3.0 High intensity warfarin therapeutic range: 2.5-3.5 17 [facility] Severe Sepsis and Septic Shock Management Bundle Measure requires all lactic acids initially measuring >2.0 mmol/L be repeated. 18 Consistent with Previous Results Reported on 04/22/19 19 Consistent with Previous Results Reported on 05/11/19 20 Because ethnic data is not always [...] 5 Kidney failure <15 (or dialysis) 21 Copy Result to: ARLEN HENDERSON ([id number]) 22 Copy Result to: ARLEN HENDERSON ([id number]) 23 run stat Copy Result to: AMITA ENNIS ([id number]) 24 run stat Copy Result to: AMITA ENNIS ([id number]) 25 run stat Copy Result to: AMITA ENNIS ([id number]) 26 run stat Copy Result to: AMITA ENNIS ([id number]) 27 Because ethnic data is not always [...] 28 Consistent with Previous Results Reported on 05/04/19 29 Consistent with Previous Results Reported on 04/27/19 30 Consistent with Previous Results Reported on 04/22/19 31 Because ethnic data is not always [...] 5 Kidney failure <15 (or dialysis) 32 Because ethnic data is not always [...] 5 Kidney failure <15 (or dialysis) 33 Because ethnic data is not always [...] 5 Kidney failure <15 (or dialysis) 34 Consistent with Previous Results Reported on 04/08/19 35 Because ethnic data is not always [...] 5 Kidney failure <15 (or dialysis) 36 Troponin-I testing on Plasma Separator Tubes (PST) has a known false positive rate of 0.20-0.40%. All positive troponins reflex immediately to secondary confirmatory testing. Using the [employer] DxI 800 Access Immunoassay systems, the 99th percentile upper reference limit was demonstrated to be < 0.03 ng/mL. 37 Consistent with Previous Results Reported on 03/29/19. 38 Critical Result LACT:3.7 Called to [id number] at: 16:27:23 by:[id number] Read back by:[id number] [facility] Severe Sepsis and Septic Shock Management Bundle Measure requires all lactic acids initially measuring >2.0 mmol/L be repeated. 39 Consistent with Previous Results Reported on 03/25/19 40 Because ethnic data is not always [...] 5 Kidney failure <15 (or dialysis) 42 Consistent with Previous Results Reported on 03/24/19 43 Because ethnic data is not always [...] 5 Kidney failure <15 (or dialysis) 44 Critical Result PLT:7 Called to and read back by: [id number] at: 03/24/2019 11:40:32 by:[id number] Consistent with Previous Results Reported on 03/22/19 Critical Result PLT:7 Called to and read back by: [id number] at: 03/24/2019 11:41:08 by:[id number] 45 Consistent with Previous Results Reported on 03/12/19 46 Verbal to [id number] by [id number] at 1115 on 03/22/19.Results read back accurately 47 Marked thrombocytopenia. Reviewed by Gisela Ortega MD 48 Verbal to [id number] by [id number] at 2145 on 03/12/19. Results read back accurately 49 Troponin-I testing on Plasma Separator Tubes (PST) has a known false positive rate of 0.20-0.40%. All positive troponins reflex immediate secondary confirmatory testing. 50 [facility] Severe Sepsis and Septic Shock Management Bundle Measure requires all lactic acids initially measuring >2.0 mmol/L be repeated. 51 Because ethnic data is not always [...] 5 Kidney failure <15 (or dialysis) 52 Normal Range 180 to 914 Indeterminate Range 145 to 180 Deficient Range <145 53 Consistent with Previous Results Reported on 03/12/19. Verbal to [id number] by [id number] at 2335 on 03/12/19. Results read back accurately 54 Because ethnic data is not always [...] 5 Kidney failure <15 (or dialysis) 55 Because ethnic data is not always [...] 5 Kidney failure <15 (or dialysis) 56 *Ascorbic acid is present which may interfere with detection of blood. Procedures Date Code Description Status 06/24/2019 34040 EKG Tracing & Interpretation Completed 05/24/2019 33518 EKG Tracing & Interpretation Completed 05/17/2019 93174 EKG Tracing & Interpretation Completed 05/02/2019 27077 EKG, Interpretation Only Completed 05/02/2019 20575 Cardioversion Completed 04/29/2019 69750 EKG Tracing & Interpretation Completed 04/27/2019 30321 Moderate Sedation Services; Same Phys Intl 15 Mins; PT Completed >= 5 Years 04/27/2019 93669 Color Flow Doppler/Interp & Reprt Completed 04/27/2019 98118 Pulse Wave/Continuous-Interp.RPT Completed 04/27/2019 72183 Echocardiography, Transesophageal, Real Time W/Image Completed 2D W/W/O M-M 04/27/2019 65907 EKG, Interpretation Only Completed 04/27/2019 10119 Cardioversion Completed 04/18/2019 02681 EKG Tracing & Interpretation Completed 04/11/2019 30756 EKG Tracing & Interpretation Completed 04/06/2019 68607 EKG, Interpretation Only Completed 04/05/2019 12791 EKG, Interpretation Only Completed 04/05/2019 91862 EKG, Interpretation Only Completed 04/04/2019 92117 Color Flow Doppler/Interp & Reprt Completed 04/04/2019 78610 Pulse Wave/Continuous-Interp.RPT Completed 04/04/2019 24556 Echocardiography, Transesophageal, Real Time W/Image Completed 2D W/W/O M-M 04/04/2019 71959 EKG, Interpretation Only Completed 04/04/2019 75471 EKG, Interpretation Only Completed 04/04/2019 35011 Cardioversion Completed 03/18/2019 28467 Cardioversion Completed 03/18/2019 94094 EKG, Interpretation Only Completed 03/18/2019 66587 EKG, Interpretation Only Completed 03/17/2019 40244 EKG, Interpretation Only Completed 03/17/2019 75731 EKG, Interpretation Only Completed 03/17/2019 97195 Cardioversion Completed 03/16/2019 95091 EKG, Interpretation Only Completed 03/16/2019 18012 EKG, Interpretation Only Completed 03/13/2019 83346 ECHO Transthorasic Realtime 2D W Doppler & Color Flow Completed Hosp 03/03/2019 75889 EKG Tracing & Interpretation Completed 02/10/2019 38214 ECHO Transthoracic, Real-Time 2D With Doppler And Completed Color Flow 02/10/2019 78962 ECHO Transthoracic, Real-Time 2D With Doppler And Completed Color Flow 01/25/2019 60275 EKG Tracing & Interpretation Completed 03/08/2018 [id number] Mammogram Completed 11/18/2017 [id number] Bone Mineral Density Test Completed 02/17/2017 [id number] Mammogram Completed 02/15/2016 58568249 Mammogram Completed 10/31/2014 072394209 Bone Mineral Density Test Completed 10/31/2014 [id number] Mammogram Completed 11/07/2013 88668364 Mammogram Completed 09/09/2012 217686310 Bone Mineral Density Test Completed 09/09/2012 03376032 Mammogram Completed 07/01/2011 17899072 Colonoscopy Completed 04/15/2011 63659125 Mammogram Completed 02/07/2010 88297353 Mammogram Completed 02/07/2010 [id number] Bone Mineral Density Test Completed Medical Devices Description No Information Available Encounters Type Date Location Provider Dx Diagnosis Office Visit 07/15/2019 [facility] Internal Amita Raymon, M54.2 Cervicalgia 10:40a Medicine - C[facility] M.DJan E78.5 Hyperlipidemia, unspecified M81.0 Age-related osteoporosis w/o current pathological fracture Z12.31 Encntr screen mammogram for malignant neoplasm of breast 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 syndrome with Services Of [facility] aortic dilation R51 Headache D69.6 Thrombocytopenia, unspecified R94.09 Abnormal results of function studies of [employer] Office Visit 05/26/2019 12:40p [facility] Arlen Henderson I48.0 Paroxysmal atrial Of [facility] M.D. 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 Q87.410 Marfan's syndrome with aortic dilation I34.0 Nonrheumatic mitral (valve) insufficiency Office Visit 05/24/2019 8:20a [facility] Internal Amita I48.0 Paroxysmal atrial Ninfa Ennis M.D. 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 Office Visit 05/19/2019 Surgical Beto Samaniego, D69.3 Immune 11:30a [facility] thrombocytopenic Steam Shovel [employer]iler purpura I48.0 Paroxysmal atrial fibrillation Office Visit 05/17/2019 2:00p [facility], I48.0 Paroxysmal atrial Of [employer] fibrillation D69.6 Thrombocytopenia, unspecified Z79.899 Other [facility] (current) drug therapy I71.2 Thoracic aortic aneurysm, without rupture Office Visit 04/29/2019 4:20p [facility] Arlen Henderson I48.0 Paroxysmal atrial Of Ltarell Lugo fibrillation D69.6 Thrombocytopenia, unspecified Office Visit 04/18/2019 2:00p [facility], I48.0 Paroxysmal atrial [employer]ING [employer] fibrillation D69.6 Thrombocytopenia, unspecified Z79.899 Other buttermaker continuous churn (current) drug therapy M79.605 Pain in left leg Office Visit 04/12/2019 10:00a [facility] Internal Amita I48.0 Paroxysmal atrial Ninfa Ennis M.D. fibrillation Ccmob D69.6 Thrombocytopenia, unspecified M25.561 Pain in right knee K21.9 Gastro-esophageal reflux disease without esophagitis Office Visit 04/11/2019 3:00p [facility], I48.0 Paroxysmal atrial [employer] fibrillation D69.6 Thrombocytopenia, unspecified E87.6 Hypokalemia Z79.899 Other butterm[employer] continuous churn (current) drug therapy Office Visit 04/06/2019 [facility] I48.0 Paroxysmal atrial 9:38a Assoc,fatimah David M.D. fibrillation Hospitalists D69.6 Thrombocytopenia, unspecified I80.02 Phlebitis and thombophlb of superfic vessels of l low extrem Q87.40 Marfan's syndrome, unspecified E03.9 Hypothyroidism, unspecified Office Visit 04/06/2019 12:09p [facility] I48.0 Paroxysmal atrial Brittney Becker fibrillation I47.2 Ventricular tachycardia Z51.81 Encounter for therapeutic drug level monitoring E87.6 Hypokalemia Office Visit 04/05/2019 11:54a [facility] Edson Vogt I48.0 Paroxysmal atrial Of Latrell Smith M.D. fibrillation I47.2 Ventricular tachycardia Z51.81 Encounter for therapeutic drug level monitoring Office Visit 04/05/2019 9:38a [facility] Liat Dill, I48.0 Paroxysmal atrial Assoc,fatimah LIANG fibrillation Hospitalists D69.6 Thrombocytopenia, unspecified I80.02 Phlebitis and thombophlb of superfic vessels of l low extrem Q87.40 Marfan's syndrome, unspecified E03.9 Hypothyroidism, unspecified Office Visit 04/04/2019 9:37a [facility] Liat Dill, I48.0 Paroxysmal atrial Assoc,fatimah LIANG fibrillation Hospitalists D69.6 Thrombocytopenia, unspecified I80.02 Phlebitis and thombophlb of superfic vessels of l low extrem Q87.40 Marfan's syndrome, unspecified E03.9 Hypothyroidism, unspecified Office Visit 04/03/2019 9:37a [facility] Liat Dill, I48.0 Paroxysmal atrial Assoc,pc fibrillation Hospitalists D69.6 Thrombocytopenia, unspecified I80.02 Phlebitis and thombophlb of superfic vessels of l low extrem Q87.40 Marfan's syndrome, unspecified E03.9 Hypothyroidism, unspecified Office Visit 04/02/2019 9:37a [facility] Liat Dill, I48.0 Paroxysmal atrial Assoc,fatimah LIANG fibrillation Hospitalists D69.6 Thrombocytopenia, unspecified I80.02 Phlebitis and thombophlb of superfic vessels of l low extrem Q87.40 Marfan's syndrome, unspecified E03.9 Hypothyroidism, unspecified Office Visit 04/01/2019 9:36a [facility] Sandy I48.0 Paroxysmal atrial Assoc,fatimah Hurt M.D. fibrillation Hospitalists D69.6 Thrombocytopenia, unspecified R74.0 Nonspec elev of levels of transamns & lactic acid dehydrgnse I80.02 Phlebitis and thombophlb of superfic vessels of l low extrem Office Visit 03/31/2019 9:36a [facility] Sandy I48.0 Paroxysmal atrial Assoc,fatimah Hurt M.D. fibrillation Hospitalists D69.6 Thrombocytopenia, unspecified R74.0 Nonspec elev of levels of transamns & lactic acid dehydrgnse Office Visit 03/31/2019 [facility] Jared Chaparro I48.91 Unspecified atrial 3:52p Of Latrell Garcia M.D., fibrillation FACC, FASNC Office Visit 03/30/2019 [facility] Sandy I48.0 Paroxysmal atrial 9:36a Assfatimah welsh M.D. fibrillation Hospitalists D69.6 Thrombocytopenia, unspecified R74.0 Nonspec elev of levels of transamns & lactic acid dehydrgnse Office Visit 03/30/2019 [facility] Arlen Henderson I48.91 Unspecified atrial 2:55p Of Latrell Lugo fibrillation Office Visit 03/29/2019 [facility] Michael Vogt I48.0 Paroxysmal atrial 9:35a Assoc,fatimah Bragg, fibrillation Hospitalists Brittney,FACP D69.6 Thrombocytopenia, unspecified R79.89 Other specified abnormal findings of blood chemistry Office Visit 03/20/2019 [facility] D69.6 Thrombocytopenia, 9:10a Assocfatimah M.D. unspecified Hospitalists I48.91 Unspecified atrial fibrillation Q87.40 Marfan's syndrome, unspecified E88.09 Oth disorders of plasma-protein metabolism, NEC R60.9 Edema, unspecified E53.8 Deficiency of other specified B group vitamins G43.109 Migraine with aura, not intractable, w/o status migrainosus Office Visit 03/20/2019 3:48p [facility] Viktor S. I48.0 Paroxysmal atrial Of [facility] Pedro, DO fibrillation FACC Office Visit 03/19/2019 9:10a [facility] D69.6 Thrombocytopenia, Assoc,fatimah Bunch M.D. unspecified Hospitalists I48.91 Unspecified atrial fibrillation Q87.40 Marfan's syndrome, unspecified R60.9 Edema, unspecified E53.8 Deficiency of other specified B group vitamins G43.109 Migraine with aura, not intractable, w/o status migrainosus Office Visit 03/19/2019 3:36p [facility] Viktor S. I48.0 Paroxysmal atrial Of [employer] Pedro, DO fibrillation FACC Office Visit 03/18/2019 2:52p [facility] Viktor S. I48.0 Paroxysmal atrial Of [employer] Pedro, DO fibrillation FACC Q87.410 Marfan's syndrome with aortic dilation Q87.418 Marfan's syndrome with other cardiovascular manifestations I34.1 Nonrheumatic mitral (valve) prolapse R60.0 Localized edema D69.6 Thrombocytopenia, unspecified Office Visit 03/18/2019 [facility] D69.6 Thrombocytopenia, 9:09a fatimah Evans M.D. unspecified Hospitalists I48.91 Unspecified atrial fibrillation Q87.40 Marfan's syndrome, unspecified R60.0 Localized edema E53.8 Deficiency of other specified B group vitamins G43.109 Migraine with aura, not intractable, w/o status migrainosus Office 03/17/2019 [facility] Michael D. D69.6 Thrombocytopenia, Visit 9:09a fatimah Evans, unspecified Hospitalists Brittney,FACP E53.8 Deficiency of other specified B group vitamins R60.9 Edema, unspecified I48.91 Unspecified atrial fibrillation R68.81 Early satiety Office Visit 03/17/2019 2:39p [facility] Viktor S. I48.0 Paroxysmal atrial Of [employer] Pedro, DO fibrillation FACC Q87.410 Marfan's syndrome with aortic dilation I34.1 Nonrheumatic mitral (valve) prolapse R60.0 Localized edema Q87.418 Marfan's syndrome with other cardiovascular manifestations Office 03/16/2019 [facility] Michael D. D69.6 Thrombocytopenia, Visit 9:09a fatimah Evans, unspecified Hospitalists Brittney,FACP E53.8 Deficiency of other specified B group vitamins R60.9 Edema, unspecified I48.91 Unspecified atrial fibrillation R68.81 Early satiety Office 03/15/2019 [facility] Michael Vogt D69.6 Thrombocytopenia, Visit 9:07a fatimah Evans, unspecified Hospitalists MJuan,FACP E53.8 Deficiency of other specified B group vitamins R60.9 Edema, unspecified I48.91 Unspecified atrial fibrillation Office 03/14/2019 [facility] Michael Vogt D69.6 Thrombocytopenia, Visit 9:07a fatimah Evans, unspecified Hospitalists MJuan,FACP E53.8 Deficiency of other specified B group vitamins R60.9 Edema, unspecified I48.91 Unspecified atrial fibrillation Office Visit 03/13/2019 [facility] Ezequiel D69.6 Thrombocytopenia, 9:07a fatimah Evans M.D. unspecified Hospitalists I48.91 Unspecified atrial fibrillation R22.43 Localized swelling, mass and lump, lower limb, bilateral H02.402 Unspecified ptosis of left eyelid Office Visit 03/08/2019 10:20a [facility] Internal Amita R60.1 Generalized edema Medicine Milly Ennis M.D. Office Visit 03/03/2019 2:40p [facility] Arlen Henderson, R60.0 Localized edema Of Latrell Lugo I48.0 Paroxysmal atrial fibrillation Q87.410 Marfan's syndrome with aortic dilation I71.2 Thoracic aortic aneurysm, without rupture Office Visit 02/24/2019 9:30a [facility] Ezequiel I83.10 Varicose veins of Services Of Brittney Call unsp lower C.M.A. extremity with inflammation M84.374D Stress fracture, right foot, subs for fx w routn [facility] Office 02/22/2019 [facility] Internal Zulay I83.10 Varicose veins of Visit 4:00p Terrence Kraus M.D. unsp lower extremity with inflammation R60.0 Localized edema Office 02/17/2019 [facility] Internal Zulay R60.0 Localized edema Visit 1:20p Terrence Kraus M.D. Office 01/27/2019 [facility]equiel Haney84.374D Stress fracture, Visit 9:30a C.M.A. Jakub, right foot, subs M.D. for fx w routn [facility] Office 01/25/2019 [facility] Of Arlen I48.0 Paroxysmal Visit 9:45a alyssa Sun M.D. 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 07/15/2019 E78.5 Hyperlipidemia, unspecified Amita Ennis M.D. 07/15/2019 M81.0 Age-related osteoporosis without Amita Ennis M.D. current pathological fracture 07/15/2019 Z12.31 Encounter for screening mammogram Amita Ennis M.D. for malignant neoplasm of breast 07/15/2019 M22.00 Recurrent dislocation of patella, Amita Ennis M.D. unspecified knee 07/13/2019 D69.6 Thrombocytopenia, unspecified Beto Samaniego MD, [...] D69.6 Thrombocytopenia, unspecified Cem Kc M.D. 06/21/2019 R94.09 Abnormal results of other function Cem Kc M.D. studies of central nervous system 05/31/2019 D69.3 Immune thrombocytopenic purpura Radha Butterfield, DAVID 05/31/2019 Z01.818 Encounter for other preprocedural Radha Butterfield , DAVID examination 05/26/2019 I48.0 Paroxysmal atrial fibrillation Arlen [...] I48.0 Paroxysmal atrial fibrillation Jared Garcia M.D., [facility] , [facility] 05/17/2019 I48.0 Paroxysmal atrial fibrillation Lety Thuman, [employer] 05/17/2019 D69.6 Thrombocytopenia, unspecified Lety Thuman, [employer]ING [employer] 05/17/2019 Z79.899 Other buttermaker continuous churn (current) drug Lety Thuman, [employer]ING [employer] therapy 05/17/2019 I71.2 Thoracic aortic aneurysm, without Lety Thuman, [employer]ING [employer] rupture 05/02/2019 R94.31 Abnormal electrocardiogram [ECG] Meir Bone M.D., [facility], [EKG] [facility] 05/02/2019 I48.0 Paroxysmal atrial fibrillation Edson Smith M.D. 04/29/2019 I48.0 Paroxysmal atrial fibrillation Arlen Henderson M.D. 04/29/2019 D69.6 Thrombocytopenia, unspecified Arlen Henderson M.D. 04/27/2019 R94.31 Abnormal electrocardiogram [ECG] Cali Becker M.D. [EKG] 04/27/2019 I48.0 Paroxysmal atrial fibrillation Arlen Henderson M.D. 04/18/2019 I48.0 Paroxysmal atrial fibrillation Arlen Henderson M.D. 04/18/2019 I48.0 Paroxysmal atrial fibrillation Lety Thuman, [employer]ORING [employer] 04/18/2019 D69.6 Thrombocytopenia, unspecified Lety Thuman, [employer]ORING [employer]ER 04/18/2019 Z79.899 Other [employer] continuous churn (current) drug Lety Thuman, [employer] therapy 04/18/2019 M79.605 Pain in left leg Lety Thuman, [employer]ING [employer] 04/12/2019 I48.0 Paroxysmal atrial fibrillation Amita Ennis M.D. 04/12/2019 D69.6 Thrombocytopenia, unspecified Amita Ennis M.D. 04/12/2019 M25.561 Pain in right knee Amita Ennis M.D. 04/12/2019 K21.9 Gastro-esophageal reflux disease Amita Ennis M.D. without esophagitis 04/11/2019 R94.31 Abnormal electrocardiogram [ECG] Arlen Henderson M.D. [EKG] 04/11/2019 I48.0 Paroxysmal atrial fibrillation Lety Thuman, [employer]ING [employer] 04/11/2019 D69.6 Thrombocytopenia, unspecified Lety Thuman, [employer]ORING [employer]ER 04/11/2019 E87.6 Hypokalemia Lety Thuman, [employer]ORING GR[employer]ER 04/11/2019 Z79.899 Other [facility] (current) drug Lety Thbalaji, [employer]ORING GR[employer]ER therapy 04/06/2019 R94.31 Abnormal electrocardiogram [ECG] Edson Smith M.D. [EKG] 04/06/2019 I48.0 Paroxysmal atrial fibrillation Davin David M.D. 04/06/2019 I48.0 Paroxysmal atrial fibrillation Cali Becker M.D. 04/06/2019 D69.6 Thrombocytopenia, unspecified Davin David M.D. 04/06/2019 I47.2 Ventricular tachycardia Cali Becker M.D. 04/06/2019 I80.02 Phlebitis and thombophlb of [facility] Davin David M.D. vessels of l low extrem 04/06/2019 Z51.81 Encounter for therapeutic drug [...] M.D. 04/05/2019 I80.02 Phlebitis and thombophlb of [facility] Liat Parsons MD vessels of low extrem 04/05/2019 Z51.81 Encounter for therapeutic drug [...] MD 04/04/2019 I80.02 Phlebitis and thombophlb of [facility] Liat Parsons MD vessels of l low extrem 04/04/2019 Q87.40 Marfan's syndrome, unspecified Liat Parsons MD 04/04/2019 E03.9 Hypothyroidism, unspecified Liat Parsons MD 04/03/2019 I48.0 Paroxysmal atrial fibrillation Liat Parsons MD 04/03/2019 D69.6 Thrombocytopenia, unspecified Liat Parsons MD 04/03/2019 I80.02 [facility] vessels of l low extrem 04/03/2019 Q87.40 Marfan's syndrome, unspecified Liat Parsons MD 04/03/2019 E03.9 Hypothyroidism, unspecified Liat Parsons MD 04/02/2019 I48.0 Paroxysmal atrial fibrillation Liat Parsons MD 04/02/2019 D69.6 Thrombocytopenia, unspecified Liat Parsons MD 04/02/2019 I80.02 Phlebitis and thombophlb of [facility] Liat Parsons MD vessels of l low extrem 04/02/2019 Q87.40 Marfan's syndrome, unspecified Liat Parsons MD 04/02/2019 E03.9 Hypothyroidism, unspecified Liat Parsons MD 04/01/2019 I48.0 Paroxysmal atrial fibrillation Sandy Hurt M.D. 04/01/2019 D69.6 Thrombocytopenia, unspecified Sandy Hurt M.D. 04/01/2019 R74.0 Nonspec elev of levels of transstephon Hurt M.D. & lactic acid dehydrgnse 04/01/2019 I80.02 Phlebitis and thombophlb of [facility] Sandy Hurt M.D. vessels of l low extrem 03/31/2019 I48.0 Paroxysmal atrial fibrillation Sandy Hurt M.D. 03/31/2019 I48.91 Unspecified atrial fibrillation Jared Garcia M.D., [facility], [facility] 03/31/2019 D69.6 Thrombocytopenia, unspecified Sandy Hurt M.D. 03/31/2019 R74.0 Nonspec elev of levels of transstephon Hurt M.D. & lactic acid dehydrgnse 03/30/2019 I48.0 Paroxysmal atrial fibrillation Sandy Hurt M.D. 03/30/2019 I48.91 Unspecified atrial fibrillation Arlen Henderson M.D. 03/30/2019 D69.6 Thrombocytopenia, unspecified Sandy Hurt M.D. 03/30/2019 R74.0 Nonspec elev of levels of transstephon Hurt M.D. & lactic acid dehydrgnse 03/29/2019 I48.0 Paroxysmal atrial fibrillation Michael Bragg M.D.,[facility] 03/29/2019 D69.6 Thrombocytopenia, unspecified Michael Bragg M.D.,[facility] 03/29/2019 R79.89 Other specified abnormal findings of Michael Bragg M.D.,[facility] blood chemistry 03/20/2019 D69.6 Thrombocytopenia, unspecified Yuriy Bunch M.D. 03/20/2019 I48.0 Paroxysmal atrial fibrillation Viktor Pedro, DO [facility] 03/20/2019 I48.91 Unspecified atrial fibrillation Yuriy Bunch M.D. 03/20/2019 Q87.40 Marfan's syndrome, unspecified Yuriy Bunch M.D. 03/20/2019 E88.09 Ot disorders of plasma-protein Yuriy Bunch M.D. metabolism, [facility] 03/20/2019 R60.9 Edema, unspecified Yuriy Bunch M.D. 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 group [facility] 03/20/2019 G43.109 Migraine with aura, not intractable, Yuriy Bunch M.D. w/o status migrainosus 03/19/2019 D69.6 Thrombocytopenia, unspecified Yuriy Bunch M.D. 03/19/2019 I48.0 Paroxysmal atrial fibrillation Viktor Pedro, DO [facility] 03/19/2019 I48.91 Unspecified atrial fibrillation Yuriy Bunch M.D. 03/19/2019 Q87.40 Marfan's syndrome, unspecified Yuriy Bunch M.D. 03/19/2019 R60.9 Edema, unspecified Yuriy Bunch M.D. 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 group vitamins 03/19/2019 G43.109 Migraine with aura, not intractable, Yuriy Bunch M.D. w/o status migrainosus 03/18/2019 R00.1 Bradycardia, unspecified Viktor Pedro, DO [facility] 03/18/2019 D69.6 Thrombocytopenia, unspecified Yuriy Bunch M.D. 03/18/2019 I48.0 Paroxysmal atrial fibrillation Viktor Pedro, DO [facility] 03/18/2019 I48.91 Unspecified atrial fibrillation Yuriy Bunch M.D. 03/18/2019 Q87.410 Marfan's syndrome with aortic Viktor Pedro, DO [facility] dilation 03/18/2019 Q87.40 Marfan's syndrome, unspecified Yuriy Bunch M.D. 03/18/2019 Q87.418 Marfan's syndrome with other Viktor Pedro, DO [facility] cardiovascular manifestations 03/18/2019 R60.0 Localized edema Yuriy Bunch M.D. 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 group vitamins 03/18/2019 R60.0 Localized edema Viktor Pedro, DO [facility] 03/18/2019 G43.109 Migraine with aura, not intractable, Yuriy Bunch M.D. 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 Michael Bragg M.D., [facility] group vitamins 03/17/2019 Q87.410 Marfan's syndrome with aortic Viktorjacky Pedro, DO [facility] dilation 03/17/2019 R60.9 Edema, unspecified Michael Bragg M.D.,FACP 03/17/2019 I34.1 Nonrheumatic mitral (valve) prolapse Viktorjacky Pedro, DO [facility] 03/17/2019 I48.91 Unspecified atrial fibrillation Michael Bragg M.D., F[facility] 03/17/2019 I48.91 Unspecified atrial fibrillation Viktorjacky Pedro, DO [facility] 03/17/2019 R68.81 Early satiety Michael Bragg M.D.,FACP 03/17/2019 R60.0 Localized edema Viktorjacky Pedro, DO [facility] 03/17/2019 Q87.418 Marfan's syndrome with other Viktor Pedro, DO [facility] cardiovascular manifestations 03/16/2019 R00.1 Bradycardia, unspecified Viktor Pedro, DO [facility] 03/16/2019 D69.6 Thrombocytopenia, unspecified Michael Bragg M.D.,FACP [...] Unspecified atrial fibrillation Michael Bragg M.D., FACP 03/14/2019 D69.6 Thrombocytopenia, unspecified Michael Bragg M.D.,F[facility] 03/14/2019 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 01/25/2019 Q87.410 Marfan's syndrome with aortic rAlen Henderson M.D. dilation 01/25/2019 I34.0 Nonrheumatic mitral (valve) Arlen Henderson M.D. insufficiency Plan of Treatment Future Appointment(s):08/03/2019 9:45 am - Beto Samaniego MD, FACS at [facility]08/03/2019 9:45 am - Sandra Davis MD at [facility]01/13/2020 11:00 am - Amita Ennis M.D. at [facility] Internal [facility] - [facility]10/07/2019 2:20 pm - Arlen Henderson M.D. at [facility]2018 - Beto Samaniego MD, FACSD69.3 Immune thrombocytopenic jyhnwdvB48.71 Dissection of carotid oncgluQ97.410 Marfan's syndrome with aortic ttwlolgjO43.0 Paroxysmal atrial fibrillation Functional Status Description No Information Available Mental Status Description No Information Available Referrals Refer to Dr Reason for Referral Status Appt Date Beto Samaniego MD FOR 08/03/19 ---[id number]--- INPATIENT Created [address] [place] [address] [place] [address] [phone] Edgardo Hunt, PH.D. History of Marfan's, aneurysm, dissections at [facility] Location as soon as possible please. [address], [place] [id number] [phone] Cem Kc M.D. Sent 06/21/[address] [place] [address] [place] [id number] [phone] Beto Samaniego MD FOR 06/14/19 ---[id number]--- INPATIENT Created [address] [place] [address] [place] [address] [phone] Darian Chaudhry MD Sent [address] [place] [address] [phone] Raman Calderon MD Closed [address] [place], [place] [id number] [phone]
[2019-08-03] MEDS ORDERED: Buffered Lidocaine 1% SYRIN* 1 ML/SYRINGE INTRADERM ONE (07:31)
[2019-08-03] MEDS ORDERED: Gabapentin CAP(*) 300 MG ONE (07:31)
[2019-08-03] MEDS ORDERED: ceFAZolin 2 GM in NS PREMIX(*) 2 GM/100 ML BAG IVPB ONE (07:31)
[2019-08-03] MEDS ORDERED: Acetaminophen TAB* 325 MG ONE (07:31)
[2019-08-03] MEDS ORDERED: fentaNYL* 50 MCG/ML 2 ML VIAL (100 MCG VIAL) ONE ×4 (08:01→13:24)
[2019-08-03] MEDS ORDERED: Midazolam* 1 MG/ML 2 ML VIAL (2 MG) ONE (08:01)
[2019-08-03] MEDS ORDERED: Famotidine IV* 10 MG/ML 2 ML (20 mg) ONE (09:07)
[2019-08-03] MEDS ORDERED: Bupivacaine 0.25% W/EPI* 10 ML SDV ONE (09:08)
[2019-08-03] MEDS ORDERED: Ondansetron INJ* 2 MG/ML VIAL ONE (09:26)
[2019-08-03] MEDS ORDERED: Dexamethasone IV* 4 MG/ML 1 ML (4 MG) ONE (09:26)
[2019-08-03] MEDS ORDERED: Propofol* 10 MG/ML 20 ML BTL ONE (09:26)
[2019-08-03] MEDS ORDERED: Rocuronium* 10 MG/ML VIAL ONE (09:28)
[2019-08-03] MEDS ORDERED: EPHEDrine (Pressors)* 50 MG/ML VIAL ONE (11:17)
[2019-08-03] MEDS ORDERED: Ondansetron INJ* 2 MG/ML VIAL IV PRN ×2 (11:34→11:38)
[2019-08-03] MEDS ORDERED: DiMENhydriNATE IV* 50 MG/ML VIAL IV PUSH PRN (11:34)
[2019-08-03] MEDS ORDERED: Naloxone* 0.4 MG/ML 1 ML VIAL IV PRN (11:34)
[2019-08-03] MEDS ORDERED: Acetaminophen TAB* 325 MG PO PRN (11:34)
[2019-08-03] MEDS ORDERED: oxyCODONE/Acetamin 5/325 MG* TAB PO PRN (11:38)
[2019-08-03] MEDS ORDERED: HYDROmorphone INJ1* 1 MG/ML SYRINGE IV SLOW PU PRN (11:38)
--- NOTE | 2019-08-03 11:39 | BRIEFOPN ---
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
[2019-08-03] MEDS ORDERED: Acetaminophen IV 1GM/100ML * 100 ML ONE (12:09)
[2019-08-03] MEDS: fentaNYL* 50 MCG/ML 2 ML VIAL (100 MCG VIAL) IV PRN ×2 (12:26→13:25)
[2019-08-03] MEDS ORDERED: Acetaminophen IV 1GM/100ML * 1,000 MG/100 ML VIAL IVPB ONE (12:39)
[2019-08-03] MEDS: Lactated Ringers 1000 ML Bag* 1,000 ML IV SCH ×2 (14:22→23:03)
--- NOTE | 2019-08-03 16:18 | OP ---
CC: Channing Coyle MD; Cem Kc MD; Amita Ennis MD; Arlen Henderson MD* OPERATIVE REPORT: DATE OF OPERATION: 08/03/19 - Inpatient, room SSU 334-01 DATE OF : 57 SURGEON: Dr. Samaniego. SOFTWARE INTEGRATION DEVELOPER: Dr. Davis. ANESTHESIOLOGIST: Dr. Santoyo. ANESTHESIA: General endotracheal. PRE-OP DIAGNOSIS: Immune thrombocytopenic purpura. POST-OP DIAGNOSIS: Immune thrombocytopenic purpura. OPERATIVE PROCEDURES: Laparoscopic splenectomy. ESTIMATED BLOOD LOSS: 10 mL. IV FLUIDS: Crystalloid. SPECIMEN: Spleen. DRAINS: None. COMPLICATIONS: None. COUNTS: Instrument, needle, and sponge counts correct. DESCRIPTION OF PROCEDURE: The patient was brought to the operating room and placed on the table supine. Sequential compression devices were placed on both lower extremities. General anesthesia was administered. A Pedersen catheter was placed. She was positioned and padded appropriately on the table in a slight left decubitus using a arm board to airplane the arm across her chest. Beanbag was used for positioning. She did receive appropriate intravenous antibiotics, and she was prepped and draped in the usual sterile fashion, and then the time- out was performed. Local anesthetic was infiltrated into the skin and soft tissue prior to making each incision. Pneumoperitoneum was established using the Veress needle placed through a transumbilical approach. After insufflating the abdomen with carbon dioxide to pressure 15 mmHg, a 5 mm optical trocar was placed in the left upper quadrant at approximately the midclavicular line, two fingerbreadths below the costal margin. Under direct visualization, a 5 mm trocar was placed in the subxiphoid position and a 5 mm trocar placed more laterally in the left costal margin. The initial trocar was upsized to a 12 mm trocar and a third 5 mm trocar was positioned between the 12 mm trocar and the lateral 5 mm trocar. A 5 mm 30-degree laparoscope was utilized for the case. Inspection revealed the patient to have a large hiatal hernia. The spleen appeared to be normal in size. The division of the gastrosplenic ligament was performed with the LigaSure and a tortuous splenic artery was identified. This was able to be dissected out bluntly and it was divided using the Endo RAJEEV stapler with faust cartridge. LigaSure was then used to mobilize the lower pole of the spleen and the lateral aspect of the splenic attachments with care to identify and preserve the splenic flexure of the colon. Once the spleen was adequately mobilized, the remaining attachments of the hilum were divided with the Endo RAJEEV stapler again using a faust stapler cartridge. After firing this, the spleen was completely freed. It was placed into an endoscopic retrieval bag. The 12 mm port site was then used as the extraction site and this was opened to approximately 3 cm to allow the extraction of the bag and the spleen was morcellated and submitted to Pathology. This wound was then closed with interrupted 0 Vicryl suture taking full-thickness muscle and fascia to close it. Inspection of the peritoneal cavity was then performed to assure hemostasis. The stomach was inspected as was the colon to assure that there was no injury. Inspection was performed as well for accessory spleens, which were not identified. Subsequently, the carbon dioxide was released and the ports were removed. The skin incisions were closed with 4-0 Monocryl in a subcuticular fashion. Steri-Strips were applied. The patient tolerated this procedure well. She was extubated and transferred to the recovery room in stable condition. [id number]/[facility] #: [id number] MTDD
[2019-08-03] MEDS: Magnesium Oxide TAB* 400 MG PO SCH (20:11)
[2019-08-03] MEDS: Calcium/Vitamin D TAB 250/125* TAB PO SCH (20:13)
[2019-08-03] MEDS: Metoprolol Tartrate TAB* 25 MG PO SCH (20:13)
[2019-08-03] MEDS: Potassium Chlor TAB* 20 MEQ TAB.ER PO SCH (20:13)
[2019-08-03] MEDS: Cyclobenzaprine TAB* 10 MG PO PRN (20:24)
[2019-08-04] MEDS: Acetaminophen TAB* 325 MG PO PRN ×5 (00:28→20:09)
[2019-08-04] MEDS: Levothyroxine TAB* 100 MCG TAB PO SCH (05:46)
[2019-08-04] MEDS ORDERED: Levothyroxine TAB* 100 MCG TAB PO SCH (06:00)
[2019-08-04 06:17] LABS: ABS Lymphocytes 0.6 10^3/ul (1.0-4.8); ABS Monocytes 0.6 10^3/ul (0-0.8); ABS Neutrophils 4.8 10^3/ul (1.5-7.7); Hematocrit 36 % (35-47); Lymphocyte % 9.3 %; Mean Corpuscular HGB Conc 34 g/dL (31-36); Mean Corpuscular Hemoglobin 28 pg (27-31); Mean Corpuscular Volume 83 fL (80-97); Mean Platelet Volume 10.2 fL (7.4-10.4); Platelet Count 74 10^3/uL (150-450); Red Blood Count 4.29 10^6 /uL (3.70-4.87); Red Cell Distribution Width 15 % (10-15)
[2019-08-04] MEDS: Cyclobenzaprine TAB* 10 MG PO PRN ×3 (07:38→23:26)
[2019-08-04] MEDS: Amiodarone TAB* 200 MG PO SCH (07:40)
[2019-08-04] MEDS: Metoprolol Tartrate TAB* 25 MG PO SCH ×2 (07:40→20:11)
[2019-08-04] MEDS: Magnesium Oxide TAB* 400 MG PO SCH ×2 (07:41→20:10)
[2019-08-04] MEDS: Calcium/Vitamin D TAB 250/125* TAB PO SCH ×2 (07:41→20:11)
[2019-08-04] MEDS: Cholecalciferol TAB* 400 UNIT PO SCH (07:41)
[2019-08-04] MEDS: Potassium Chlor TAB* 20 MEQ TAB.ER PO SCH ×2 (07:43→20:11)
[2019-08-04] MEDS: Cyanocobalamin TAB* 500 MCG PO SCH (07:43)
[2019-08-04] MEDS: SELENIUM 200 MCG PO SCH (08:49)
[2019-08-04] MEDS: Lactated Ringers 1000 ML Bag* 1,000 ML IV SCH (09:11)
--- NOTE | 2019-08-04 16:44 | PN ---
Progress Note - Progress Note Date of Service: 08/04/19 SOAP: Subjective: C/o pain. No N/V. Scant flatus. Discussed findings at surgery. Objective: Vital Signs Temp 97.6 F 08/04/19 15:27 Pulse 57 08/04/19 15:27 Resp 16 08/04/19 16:26 BP 116/62 08/04/19 15:27 Pulse Ox 98 08/04/19 15:27 Gen: NAD; sitting up in chair reading. Abd: incisions c/d/i; no erythema; soft; tender Intake & Output 08/03/19 08/04/19 08/04/19 18:59 06:59 18:59 Intake Total 920 2207 2623 Output Total 1000 2650 1975 Balance -80 -443 648 Weight 159 lb Intake: IV Fluids 324 987 4616 LR 802 777 6571 Oral 1500 1390 Output: Urine 1000 1250 1475 Pedersen 1400 500 Other: # Bowel Movements 0 Laboratory Results - last 24 hr 08/04/19 05:50 WBC 6.0 RBC 4.29 Hgb 12.0 Hct 36 MCV 83 MCH 28 MCHC 34 RDW 15 Plt Count 74 L MPV 10.2 Neut % (Auto) 81.2 Lymph % (Auto) 9.3 Maries % (Auto) 9.4 Eos % (Auto) 0.0 Baso % (Auto) 0.1 Absolute Neuts (auto) 4.8 Absolute Lymphs (auto) 0.6 L Absolute Monos (auto) 0.6 Absolute Eos (auto) 0.0 Absolute Basos (auto) 0.0 Absolute Nucleated RBC 0.0 Nucleated RBC % 0.0 Assessment: POD#1 s/p lap splenectomy. Stable clinically. Plan: Advance diet. F/u Platelets. Likely home in AM.
[2019-08-05 03:56] VITALS: BP 110/64
[2019-08-05] MEDS: Levothyroxine TAB* 100 MCG TAB PO SCH (05:44)
[2019-08-05 06:11] LABS: Hematocrit 36 % (35-47); Mean Corpuscular HGB Conc 34 g/dL (31-36); Mean Corpuscular Hemoglobin 28 pg (27-31); Mean Corpuscular Volume 84 fL (80-97); Mean Platelet Volume 11.5 fL (7.4-10.4); Platelet Count 77 10^3/uL (150-450); Red Blood Count 4.28 10^6 /uL (3.70-4.87); Red Cell Distribution Width 15 % (10-15)
[2019-08-05] MEDS: SELENIUM 200 MCG PO SCH ×2 (07:23→09:19)
[2019-08-05] MEDS: Amiodarone TAB* 200 MG PO SCH (07:32)
[2019-08-05] MEDS: Metoprolol Tartrate TAB* 25 MG PO SCH (07:32)
[2019-08-05] MEDS: Magnesium Oxide TAB* 400 MG PO SCH (08:30)
[2019-08-05] MEDS: Cholecalciferol TAB* 400 UNIT PO SCH (09:18)
[2019-08-05] MEDS: Calcium/Vitamin D TAB 250/125* TAB PO SCH (09:18)
[2019-08-05] MEDS: Cyanocobalamin TAB* 500 MCG PO SCH (09:18)
[2019-08-05] MEDS: Acetaminophen TAB* 325 MG PO PRN (09:19)
[2019-08-05] MEDS: Potassium Chlor TAB* 20 MEQ TAB.ER PO SCH (09:19)
[2019-08-05] MEDS: Cyclobenzaprine TAB* 10 MG PO PRN (09:36)
--- NOTE | 2019-08-05 10:00 | PN ---
Progress Note - Progress Note Date of Service: 08/05/19 Note: S: POD #2. Patient seen w/ Dr. Samaniego. Overall, doing well with less pain and tonia reg diet well. She does feels that her afib is active this a.m. Denies CP, lightheadedness, or SOB. Had an episode of pain LUQ last night which was relieved by Percocet. Otherwise taking only Tylenol. She also reports some bleeding from one of her incisions which caused a spot on her gown last night. It has not continued. O: Vital Signs - 8 hr 08/05/19 08/05/19 08/05/19 03:55 07:36 09:36 Temperature 98.3 F Pulse Rate 51 Respiratory 17 17 16 Rate Blood Pressure 110/64 (mmHg) O2 Sat by Pulse 95 Oximetry Intake and Output Last 24 Hours 08/03/19 08/04/19 08/05/19 08/06/19 06:59 06:59 06:59 06:59 Intake Total 3127 3428 120 Output Total 3650 3975 450 Balance -523 -547 -330 Weight 159 lb Intake: IV Fluids 1627 1233 LR 1627 1233 Oral 1500 2195 120 Output: Urine 2250 3475 450 Pedersen 1400 500 Other: # Bowel Movements 0 Gen: sitting up in chair, just finished bfast; NAD Heart: initially irreg irreg, rate 60-80; subsequently reg by ausc w/ rate ~ 60 Lungs: clear ant Abd: incisions clean and dry w/ small areas of dried blood. Soft. Incisional tenderness as would be expected. Remainder soft, nontender. Labs: Laboratory Tests 08/05/19 05:23 Hgb 12.0 Plt Count 77 L A: s/p lap splenectomy for ITP, stable; surgically ready for discharge parox afib (Dr. Samaniego discussed w/ Lety Ferreira NP cardiology; will get ECG if cont afib; no consult needed as she has already resumed her usual meds other than Eliquis, which will be restarted this a.m.) P: resume Eliquis; home today; instructions reviewed.
[2019-08-05] MEDS ORDERED: Apixaban* 5 MG TAB PO SCH (11:00)
--- NOTE | 2019-08-05 13:08 | DS ---
AMENDED REPORT NOW INCLUDES DESIGNATED COSIGNER CC: Dr. Ennis; Dr. Coyle; Dr. Henderson * DISCHARGE SUMMARY: DATE OF ADMISSION: 08/03/19 DATE OF DISCHARGE: 08/05/19 ATTENDING SURGEON: Dr. Beto Samaniego.* (DICTATED BY CD BHAGAT) HOSPITAL COURSE: Please refer to admission history and physical and operative note for details. The patient was taken to the operating room on 08/03/19, at which time she underwent laparoscopic splenectomy for ITP with Dr. Samaniego. Surgery itself was uneventful. Postoperative course includes gradual improvement in pain and tolerance of diet. She has been passing flatus. No bowel movement as of the morning of postoperative day 2. She has a history of paroxysmal atrial fibrillation and felt that she was in AFib the morning of discharge, but that this resolved spontaneously on its own. Exam earlier on the morning of discharge confirmed an irregularly irregular rate consistent with atrial fibrillation. Subsequent exam confirmed regular rate with rate around 60. Dr. Samaniego did see the patient with myself for examination on rounds. He subsequently spoke with Lety Reyes NP, with Cardiology, who recommended ECG if the patient's AFib persisted, but that no additional consultation or intervention would be required. She had already resumed her usual p.o. meds with the exception of Eliquis which will be restarted this morning. The patient was reexamined later in the morning and found to be in regular rhythm and without symptoms. Postoperative platelet count was 74,000 on the morning of postop day 1 and 77, 000 today versus 84,000 preop. She will, therefore, be discharged to home today in good condition. She has a followup with our office scheduled for 08/12/19. She will also contact Dr. Coyle's office for Hematology followup. Written and verbal instructions were given. DC BHAGAT [id number]/[facility] #: [id number] MTDD
== END 2019-08-05 11:15 | disposition home or self-care (01) | DRG 650 ==
LOC: AA 08-03 07:10 → SSU 08-03 11:38
PROVIDERS: ADMIT Surgery; ATTEND Surgery
PROC: 07TP4ZZ Resection of Spleen, Percutaneous Endoscopic Approach (ICD-10-PCS; principal; 2019-08-03 09:00)
DX: D69.3 Immune thrombocytopenic purpura (principal); Q87.40 Marfan syndrome, unspecified; M41.9 Scoliosis, unspecified; I48.0 Paroxysmal atrial fibrillation; E03.9 Hypothyroidism, unspecified; M85.80 Other specified disorders of bone density and structure, unspecified site; M54.2 Cervicalgia; F41.9 Anxiety disorder, unspecified; K44.9 Diaphragmatic hernia without obstruction or gangrene; Z79.01 Long term (current) use of anticoagulants; Z79.899 Other long term (current) drug therapy; Z88.2 Allergy status to sulfonamides; Z91.048 Other nonmedicinal substance allergy status; Z82.49 Family history of ischemic heart disease and other diseases of the circulatory system; Z82.3 Family history of stroke; Z80.49 Family history of malignant neoplasm of other genital organs
CPT/HCPCS: 36415; 85025; 85027; 88305; A9270-GY; C1776; J0690; J1100; J1170; J2250; J2405; J2704; J3010

== ENCOUNTER 2019-11-10 15:50 | Inpatient (IN) | payer BC ==
[2019-11-10] MEDS ORDERED: oxyCODONE/Acetamin 5/325 MG* TAB PO PRN (16:41)
[2019-11-10] MEDS ORDERED: Cyclobenzaprine TAB* 10 MG PO PRN (16:41)
[2019-11-10] MEDS ORDERED: Acetaminophen TAB* 325 MG PO PRN (16:41)
--- OUTSIDE RECORDS SUMMARY | 2019-11-10 17:47 | XMS REPORT | Continuity of Care Document ---
:1955 External Reference #:[id number] Author Name Fern Jean M.D., FACP (transmitted by agent of provider Reina Blair ) Address [address] [place] [id number] Care Team Providers Name Role Phone Other Physician Practices Care Team Information Crumb Packer Unavailable Amita Ennis MD - Internal Care Team Information Crumb Packer [phone] Medicine Channing Coyle M.D. - Hematology & Care Team Information Crumb Packer Oncology Arlen Henderson MD - Cardiovascular Care Team Information Crumb Packer Disease Cem Kc M.D. - Neurology Care Team Information Crumb Packer [phone] Beto Samaniego MD - Surgery Care Team Information Crumb Packer [phone] Problems Active Problems Provider Date Marfan's syndrome Fern Jean M.D., FACP Onset: 03/17/2011 Hypothyroidism Fern Jean M.D., FACP Onset: 03/17/2011 Mitral valve disorder Meir Bone M.D., [facility], [facility] Onset: 09/13/2014 Note: mitral valave insufficiency Osteoporosis Zulay Kraus M.D. Onset: 11/07/2014 Scoliosis deformity of spine Zulay Kraus M.D. Onset: 11/07/2014 Tendinosis Zulay Kraus M.D. Onset: 02/19/2015 Note: rotatot cuff with AC joint OA Thoracic aortic ectasia Meir Bone M.D., [facility], [facility] Onset: 10/10/2015 Arachnoid cyst Zulay Kraus M.D. Onset: 10/23/2015 Note: L anterior fossa Disturbance in sleep behavior Yudi Louie MD Onset: 12/18/2015 Paroxysmal atrial fibrillation Meir Bone M.D., [facility] Onset: 2015 Headache Cem Kc M.D. Onset: 06/21/2019 Thrombocytopenic disorder Cem Kc M.D. Onset: 06/21/2019 Abnormal results function studies of Cem Kc M.D. Onset: 06/21/2019 central nervous system Aneurysm of thoracic aorta Arlen Henderson M.D. Onset: 10/07/2019 Social History Type Date Description Comments Sex Unknown ETOH Use Rarely consumes alcohol Tobacco Use Start: Unknown Patient has never smoked Recreational Drug Use Negative For Denies Drug Use Smoking Status Reviewed: 11/09/19 Patient has never smoked Exercise Type/Frequency Does not exercise Allergies, Adverse Reactions, Alerts Active Allergies Reaction Severity Comments Date Sulfa Urticaria Moderate 01/23/2010 Nickel 09/09/2016 Medications Active Medications SIG Qnty Indications Ordering Date Provider Vitamin D 1 tab Every Day Unknown 06/10/2019 (Cholecalciferol) 1000Unit Capsules Cyclobenzaprine HCL 1 tabs every 8 60tabs R51 Amita 05/24/2019 5mg hours as needed Brittney Ennis Tablets Magnesium Oxide 500MG 1 tab by mouth Lety Reyes, 04/18/2019 twice a day [employer] Metoprolol Tartrate take 1 tablet 180tabs I48.0 Arlen Henderson, 04/11/2019 25mg oral twice a M.D. Tablets day. Amiodarone HCL 1 tab by mouth 90tabs I48.0 Lety Reyes, 04/11/2019 200mg every day with [employer] Tablets meal Eliquis 1 by mouth 90tabs Arlen Henderson, 04/07/2019 5mg Tablets twice a day M.D. Vitamin B-12 1 by mouth Zulay Kraus, 04/07/2019 1000mcg every day M.D. Tablets Automatic Blood 1 adult large 1units Maria C Mcfadden, 11/11/2018 Pressure Monitor cuff and unit N.P. Kit for upper arm utd twice a day . please log results . call providor when systolic reading is below 100 or above 1 Levothyroxine Sodium take 1 tablet 90tabs E03.9 Amita 10/20/2017 100mcg by mouth once Brittney Ennis Tablets daily Calcium 600 + D 1 tab bid Zulay Kraus, 02/05/2016 M.D. [id number] Tablets Potassium Chloride ER 2 tabs by mouth 360caps Arlen Henderson, 10/23/2015 10Meq daily. M.D. Capsules ER Selenium 1 tab po qd Unknown 200mcg Tablets History Medications Tylenol 8 Hour 1 by mouth six 90tabs Amita Raymon, 08/05/2019 - times a day as M.D. 10/06/2019 650mg Tablets ER needed for pain Oxycodone-Acetamin 1 tabs by mouth 12tabs Amita Raymon, 08/05/2019 - ophen every 4 hours as M.D. 10/06/2019 5-325mg needed for pain Tablets Medications Administered in Office Medication SIG Qnty Indications Ordering Provider Date [facility] administered Unknown 01/11/2019 Injection Inj, Regadenoson, 0.1 MG Edson Smith M.D. 07/22/2013 Injection Technetium TC 99M TetrofEdson oliva M.D. 07/22/2013 Per Unit Dose Up To 40 Millicuries Injection Immunizations CPT Code Status Date Vaccine Lot # [id number] Given 10/09/2018 Influenza Virus Vaccine, Quadrivalent, Split, Preservative Free 81826 Given 07/19/2018 Zoster (Shingles) Vaccine (HZV), Recombinant, Subunit, Adjuvanted 77700 Given 07/19/2018 Zoster (Shingles) Vaccine (HZV), Recombinant, Subunit, Adjuvanted 17528 Given 10/20/2017 Influenza Virus Vaccine, Quadrivalent, Split, [id number] Preservative Free 72604 Given 11/26/2016 Influ Virus Vaccine, Quadrivalent, Split Virus, [place] [address] Given 2015 Influenza Virus Vaccine, Quadrivalent, Split, Preservative Free 95890 Given 10/17/2014 Tdap - Tetanus/Diptheria/Acellular Pertussis [id number] 83715 Given 10/17/2014 Flu Vaccine Split Virus Preservative Free For [id number] Indiv 3Yr Older 79087 Given 09/05/2013 Flu Vaccine Split Virus Preservative Free For [id number] Indiv 3Yr Older Q2038 Given 09/01/2012 Fluzone Vaccine [id number] 63975 Given 01/30/2010 Influenza Virus Vaccine, Pandemic Formulation 03531 Given 01/30/2010 Administration Swine Flu Shot 03664 Given 01/05/2009 Influenza Virus 3Yrs & Over 64071 Given 11/24/2006 Influenza Virus 3Yrs & Over 61102 Given 11/24/2006 Influenza Virus 3Yrs & Over 11911 Given 2003 Td Toxoids Adsorbed For Use 7Yrs Or Older For Intramuscular Use Vital Signs Date Vital Result Comment 11/09/2019 1:59pm Height 70 inches 5'10" Weight 166.50 lb Heart Rate 68 /min BP Systolic 115 mmHg BP Diastolic 68 mmHg Body Temperature 97.1 F O2 % BldC Oximetry 97 % BMI (Body Mass Index) 23.9 kg/m2 10/07/2019 2:04pm Height 70 inches 5'10" Weight 160.00 lb with shoes Heart Rate 62 /min BP Systolic Sitting 102 mmHg LA BP Diastolic Sitting 70 mmHg LA BP Systolic Standing 102 mmHg BP Diastolic Standing 76 mmHg BMI (Body Mass Index) 23.0 kg/m2 Ejection Fraction 50-55% Echo 04/04/19 Results Test Acquired Date Facility Test Result H/L Range Note CBC Auto 09/16/2019 [facility] White Blood 8.3 10^3/uL Normal 3.5-10.[address] [place] [address] [phone] Red Blood Count 5.04 10^6/uL High 3.70-4.87 Hemoglobin 13.8 g/dL Normal 12.0-16.0 Hematocrit 42 % Normal 35-47 Mean Corpuscular Volume 84 fL Normal 80-97 Mean Corpuscular Hemoglobin 28 pg Normal 27-31 Mean Corpuscular HGB Conc 33 g/dL Normal 31-36 Red Cell Distribution Width 15 % Normal 10-15 Platelet Count 161 10^3/uL Normal 150-450 Mean Platelet Volume 10.0 fL Normal 7.4-10.4 Abs Neutrophils 5.6 10^3/uL Normal 1.5-7.7 Abs Lymphocytes 1.2 10^3/uL Normal 1.0-4.8 Abs Monocytes 1.1 10^3/uL High 0-0.8 Abs Eosinophils 0.1 10^3/uL Normal 0-0.6 Abs Basophils 0.2 10^3/uL Normal 0-0.2 Abs Nucleated RBC 0.0 10^3/uL Granulocyte % 67.3 % Lymphocyte % 14.7 % Monocyte % 13.7 % Eosinophil % 1.6 % Basophil % 2.7 % Nucleated Red Blood Cells % 0.0 CBC Auto 08/09/2019 [facility] White Blood 8.4 10^3/uL Normal 3.5-10.[address] [place] [address] [phone] Red Blood Count 4.95 10^6/uL High 3.70-4.87 Hemoglobin 13.6 g/dL Normal 12.0-16.0 Hematocrit 42 % Normal 35-47 Mean Corpuscular Volume 85 fL Normal 80-97 Mean Corpuscular Hemoglobin 28 pg Normal 27-31 Mean Corpuscular HGB Conc 33 g/dL Normal 31-36 Red Cell Distribution Width 16 % High 10-15 Platelet Count 197 10^3/uL Normal 150-450 Mean Platelet Volume 11.0 fL High 7.4-10.4 Abs Neutrophils 6.3 10^3/uL Normal 1.5-7.7 Abs Lymphocytes 0.9 10^3/uL Low 1.0-4.8 Abs Monocytes 1.0 10^3/uL High 0-0.8 Abs Eosinophils 0.1 10^3/uL Normal 0-0.6 Abs Basophils 0.1 10^3/uL Normal 0-0.2 Abs Nucleated RBC 0.0 10^3/uL Granulocyte % 74.0 % Lymphocyte % 10.8 % Monocyte % 12.2 % Eosinophil % 1.6 % Basophil % 1.4 % Nucleated Red Blood Cells % 0.0 CBC Auto 08/02/2019 [facility] White Blood 8.1 10^3/uL Normal 3.5-10.[address] [place] [address] [phone] Red Blood Count 5.09 10^6/uL High 3.70-4.87 Hemoglobin 14.0 g/dL Normal 12.0-16.0 Hematocrit 43 % Normal 35-47 Mean Corpuscular Volume 84 fL Normal 80-97 Mean Corpuscular Hemoglobin 28 pg Normal 27-31 Mean Corpuscular HGB Conc 33 g/dL Normal 31-36 Red Cell Distribution Width 15 % Normal 10-15 Platelet Count 84 10^3/uL Low 150-450 1 Mean Platelet Volume 9.7 fL Normal 7.4-10.4 Abs Neutrophils 6.0 10^3/uL Normal 1.5-7.7 Abs Lymphocytes 0.9 10^3/uL Low 1.0-4.8 Abs Monocytes 1.0 10^3/uL High 0-0.8 Abs Eosinophils 0.1 10^3/uL Normal 0-0.6 Abs Basophils 0.1 10^3/uL Normal 0-0.2 Abs Nucleated RBC 0.0 10^3/uL Granulocyte % 73.8 % Lymphocyte % 11.6 % Monocyte % 12.0 % Eosinophil % 1.2 % Basophil % 1.4 % Nucleated Red Blood Cells % 0.1 CBC Auto 07/25/2019 [facility] White Blood 7.3 10^3/uL Normal 3.5-10.[address] [place], [place] [id number] [phone] Red Blood Count 4.93 10^6/uL High 3.70-4.87 Hemoglobin 13.5 g/dL Normal 12.0-16.0 Hematocrit 41 % Normal 35-47 Mean Corpuscular Volume 84 fL Normal 80-97 Mean Corpuscular Hemoglobin 27 pg Normal 27-31 Mean Corpuscular HGB Conc 33 g/dL Normal 31-36 Red Cell Distribution Width 15 % Normal 10-15 Platelet Count 88 10^3/uL Low 150-450 2 Mean Platelet Volume 9.2 fL Normal 7.4-10.4 Abs Neutrophils 5.2 10^3/uL Normal 1.5-7.7 Abs Lymphocytes 1.1 10^3/uL Normal 1.0-4.8 Abs Monocytes 0.9 10^3/uL High 0-0.8 Abs Eosinophils 0.1 10^3/uL Normal 0-0.6 Abs Basophils 0.1 10^3/uL Normal 0-0.2 Abs Nucleated RBC 0.0 10^3/uL Granulocyte % 70.6 % Lymphocyte % 14.9 % Monocyte % 11.9 % Eosinophil % 1.8 % Basophil % 0.8 % Nucleated Red Blood Cells % 0.1 Lipid Profile 07/19/2019 [facility] Triglycerides 160 mg/dL 3 (Trig/Chol/HDL) [address] [place] [address] [phone] Cholesterol 199 mg/dL 4 HDL Cholesterol 44.7 mg/dL 5 LDL Cholesterol 122 mg/dL 6 Laboratory test 07/19/2019 [facility] Vitamin D 44.4 ng/mL Normal 20-50 [address] Total 25(Oh) [place] [address] [phone] CBC Auto Diff 07/18/2019 [facility] White Blood 8.1 Normal 3.5 -10.[address] Count 10^3/[place] [address] [phone] Red Blood Count 4.93 10^6/uL High 3.70-4.87 Hemoglobin 13.7 g/dL Normal 12.0-16.0 Hematocrit 41 % Normal 35-47 Mean Corpuscular Volume 84 fL Normal 80-97 Mean Corpuscular Hemoglobin 28 pg Normal 27-31 Mean Corpuscular HGB Conc 33 g/dL Normal 31-36 Red Cell Distribution Width 15 % Normal 10-15 Platelet Count 77 10^3/uL Low 150-450 8 Mean Platelet Volume 9.3 fL Normal 7.4-10.4 [...] Blood Cells % 0.0 CBC Auto 07/11/2019 [facility] White Blood 6.3 10^3/uL Normal 3.5-10.[address] [place] [address] [phone] Red Blood Count 4.84 10^6/uL Normal 3.70-4.87 Hemoglobin 13.3 g/dL Normal 12.0-16.0 Hematocrit 41 % Normal 35-47 Mean Corpuscular Volume 85 fL Normal 80-97 Mean Corpuscular Hemoglobin 28 pg Normal 27-31 Mean Corpuscular HGB Conc 33 g/dL Normal 31-36 Red Cell Distribution Width 15 % Normal 10-15 Platelet Count 75 10^3/uL Low 150-450 9 Mean Platelet Volume 9.5 fL Normal 7.4-10.4 [...] Blood Cells % 0.0 CBC Auto 07/04/2019 [facility] White Blood 7.2 10^3/uL Normal 3.5-10.[address] [place], [place] [address] [phone] Red Blood Count 4.88 10^6/uL High 3.70-4.87 Hemoglobin 13.6 g/dL Normal 12.0-16.0 Hematocrit 41 % Normal 35-47 Mean Corpuscular Volume 85 fL Normal 80-97 Mean Corpuscular Hemoglobin 28 pg Normal 27-31 Mean Corpuscular HGB Conc 33 g/dL Normal 31-36 Red Cell Distribution Width 15 % Normal 10-15 Platelet Count 81 10^3/uL Low 150-450 10 Mean Platelet Volume 10.0 fL Normal 7.4-10.4 [...] Blood Cells % 0.0 CBC Auto 06/27/2019 [facility] White Blood 7.1 10^3/uL Normal 3.5-10.[address] [place] [address] [phone] Red Blood Count 4.97 10^6/uL High 3.70-4.87 Hemoglobin 13.8 g/dL Normal 12.0-16.0 Hematocrit 42 % Normal 35-47 Mean Corpuscular Volume 84 fL Normal 80-97 Mean Corpuscular Hemoglobin 28 pg Normal 27-31 Mean Corpuscular HGB Conc 33 g/dL Normal 31-36 Red Cell Distribution Width 15 % Normal 10-15 Platelet Count 75 10^3/uL Low 150-450 11 Mean Platelet Volume 9.6 fL Normal 7.4-10.4 [...] Blood Cells % 0.0 Laboratory test 06/21/2019 [facility] TSH Receptor <1.00 IU/L [address] [place] [address] [phone] Thyroperoxidase AB 933.31 IU/mL High <9 TSH (Thyroid Stim Horm) 1.18 mcIU/mL Normal 0.34-5.60 Free T4 (Free Thyroxine) 1.46 ng/dL High 0.61-1.12 CBC Auto 06/20/2019 [facility] White Blood 6.4 10^3/uL Normal 3.5-10.[address] [place] [address] [phone] Red Blood Count 4.80 10^6/uL Normal 3.70-4.87 Hemoglobin 13.6 g/dL Normal 12.0-16.0 Hematocrit 41 % Normal 35-47 Mean Corpuscular Volume 85 fL Normal 80-97 Mean Corpuscular Hemoglobin 28 pg Normal 27-31 Mean Corpuscular HGB Conc 33 g/dL Normal 31-36 Red Cell Distribution Width 14 % Normal 10-15 Platelet Count 87 10^3/uL Low 150-450 13 Mean Platelet Volume 9.8 fL Normal 7.4-10.4 [...] Blood Cells % 0.0 CBC Auto 06/13/2019 [facility] White Blood 7.2 10^3/uL Normal 3.5-10.[address] [place] [address] [phone] Red Blood Count 4.83 10^6/uL Normal 3.70-4.87 Hemoglobin 13.8 g/dL Normal 12.0-16.0 Hematocrit 41 % Normal 35-47 Mean Corpuscular Volume 85 fL Normal 80-97 Mean Corpuscular Hemoglobin 29 pg Normal 27-31 Mean Corpuscular HGB Conc 34 g/dL Normal 31-36 Red Cell Distribution Width 15 % Normal 10-15 Platelet Count 79 10^3/uL Low 150-450 14 Mean Platelet Volume 9.7 fL Normal 7.4-10.4 [...] Nucleated Red Blood Cells % 0.0 Laboratory 06/10/2019 [facility] Partial 38.1 High 26.0-38.[address] [place] [address] Time PTT [phone] Inr/Protime 06/10/2019 [facility] Inr 1.14 High 0.82-1.[address] [place] [address] [phone] CBC Auto Diff 06/10/2019 [facility] White Blood 6.5 10^3/uL Normal 3.5-10.[address] [place] [address] [phone] Red Blood Count 4.80 10^6/uL Normal 3.70-4.87 Hemoglobin 13.3 g/dL Normal 12.0-16.0 Hematocrit 41 % Normal 35-47 Mean Corpuscular Volume 85 fL Normal 80-97 Mean Corpuscular Hemoglobin 28 pg Normal 27-31 Mean Corpuscular HGB Conc 33 g/dL Normal 31-36 Red Cell Distribution Width 14 % Normal 10-15 Platelet Count 77 10^3/uL Low 150-450 16 Mean Platelet Volume 9.5 fL Normal 7.4-10.4 [...] Blood Cells % 0.1 Laboratory test 06/10/2019 [facility] Magnesium 2.0 mg/dL Normal 1.9-2.[address] [place] [address] [phone] Creatine Kinase(CK) 26 U/L Normal 10-223 Lactic Acid 0.5 mmol/L Normal 0.5-2.0 17 Comp Metabolic 06/10/2019 [facility] Sodium 138 mmol/L Normal 135-[address] [place] [address] [phone] Potassium 4.2 mmol/L Normal 3.5-5.0 Chloride 106 [...] Egfr Non- 76.0 >60 Egfr 91.9 >60 18 CKMB 06/10/2019 [facility] CKMB ng/mL 1.1 ng/mL Normal 0.6- 6.[address] [place] [address] [phone] Laboratory test 06/10/2019 [facility] B-Type 153 pg/mL High <= [address] [place] [address] Peptide BNP [phone] Troponin-I (TnI) 0.01 ng/mL <0.04 19 CBC Auto 06/08/2019 [facility] White Blood 7.1 10^3/uL Normal 3.5-10.[address] [place] [address] [phone] Red Blood Count 4.90 10^6/uL High 3.70-4.87 Hemoglobin 13.8 g/dL Normal 12.0-16.0 Hematocrit 42 % Normal 35-47 Mean Corpuscular Volume 85 fL Normal 80-97 Mean Corpuscular Hemoglobin 28 pg Normal 27-31 Mean Corpuscular HGB Conc 33 g/dL Normal 31-36 Red Cell Distribution Width 14 % Normal 10-15 Platelet Count 80 10^3/uL Low 150-450 20 Mean Platelet Volume 9.7 fL Normal 7.4-10.4 [...] Blood Cells % 0.1 CBC Auto 05/31/2019 [facility] White Blood 7.8 10^3/uL Normal 3.5-10.[address] [place] [address] [phone] Red Blood Count 4.88 10^6/uL High 3.70-4.87 Hemoglobin 13.7 g/dL Normal 12.0-16.0 Hematocrit 42 % Normal 35-47 Mean Corpuscular Volume 86 fL Normal 80-97 Mean Corpuscular Hemoglobin 28 pg Normal 27-31 Mean Corpuscular HGB Conc 33 g/dL Normal 31-36 Red Cell Distribution Width 15 % Normal 10-15 Platelet Count 98 10^3/uL Low 150-450 21 Mean Platelet Volume 10.5 fL High 7.4-10.4 [...] Blood Cells % 0.0 Basic Metabolic 05/31/2019 [facility] Sodium 137 mmol/L Normal 135-[address] [place] [address] [phone] Potassium 4.4 mmol/L Normal 3.5-5.0 Chloride 103 mmol/L Normal 101-111 Co2 Carbon Dioxide 28 mmol/L Normal 22-32 Anion Gap 6 mmol/L Normal 2-11 Glucose 84 mg/dL Normal 70-100 Blood Urea Nitrogen 15 mg/dL Normal 6-24 Creatinine 0.75 mg/dL Normal 0.51-0.95 BUN/Creatinine Ratio 20.0 Normal 8-20 Calcium 9.1 mg/dL Normal 8.6-10.3 Egfr Non- 78.3 >60 Egfr 94.7 >60 22 Laboratory 05/31/2019 [facility] Magnesium 1.9 mg/dL Normal 1.9-2.7 test finding [address] [place] [address] [phone] Type & Screen 05/31/2019 [facility] Patient Blood A Positive [address] [place] [address] [phone] Antibody Screen NEGATIVE Laboratory test 05/24/2019 [facility] Erythrocyte Sed 26 mm/Hr Normal 0-29 [address] [place] [address] [phone] Lyme Screen W/ Reflex To WB Negative Negative 24 CBC Auto 05/24/2019 [facility] White Blood 7.9 10^3/uL Normal 3.5-10.[address] [place] [address] [phone] Red Blood Count 4.82 10^6/uL Normal 3.70-4.87 [...] Blood Cells % 0.1 CBC Auto 05/18/2019 [facility] White Blood 8.9 10^3/uL Normal 3.5-10.[address] [place] [address] [phone] Red Blood Count 4.73 10^6/uL Normal 3.70-4.87 [...] Blood Cells % 0.2 Laboratory test 05/17/2019 [facility] Magnesium 2.0 mg/dL Normal 1.9-2.7 [address] [place] [address] [phone] TSH (Thyroid Stim Horm) 1.86 mcIU/mL Normal 0.34-5.60 26 T3 Free 2.80 pg/mL Normal 2.5-3.9 27 Free T4 (Free Thyroxine) 1.45 ng/dL High 0.61-1.12 28 Basic Metabolic 05/17/2019 [facility] Sodium 137 mmol/L Normal 135-[address] [place] [address] [phone] Potassium 4.3 mmol/L Normal 3.5-5.0 Chloride 103 mmol/L Normal 101-111 Co2 Carbon Dioxide 28 mmol/L Normal 22-32 Anion Gap 6 mmol/L Normal 2-11 Glucose 110 mg/dL High 70-100 Blood Urea Nitrogen 15 mg/dL Normal 6-24 Creatinine 0.82 mg/dL Normal 0.51-0.95 BUN/Creatinine Ratio 18.3 Normal 8-20 Calcium 8.9 mg/dL Normal 8.6-10.3 Egfr Non- 70.6 >60 Egfr 85.5 >60 29 CBC Auto 05/11/2019 [facility] White Blood 8.4 10^3/uL Normal 3.5-10.[address] [place] [address] [phone] Red Blood Count 4.58 10^6/uL Normal 3.70-4.87 Hemoglobin 13.2 g/dL Normal 12.0-16.0 Hematocrit 40 % Normal 35-47 Mean Corpuscular Volume 88 fL Normal 80-97 Mean Corpuscular Hemoglobin 29 pg Normal 27-31 Mean Corpuscular HGB Conc 33 g/dL Normal 31-36 Red Cell Distribution Width 15 % Normal 10-15 Platelet Count 73 10^3/uL Low 150-450 30 Mean Platelet Volume 9.5 fL Normal 7.4-10.4 [...] % Nucleated Red Blood Cells % 0.0 1 Consistent with Previous Results Reported on 07/25/19 2 Consistent with Previous Results Reported on 07/11/19 3 Desirable: <150 Borderline High: 150-199 High: 200-499 Very High: >500 4 Desirable: <200 Borderline High: 200-239 High: >239 5 Low: <40 Desirable: 40-60 High: >60 6 Desirable: <100 Near Optimal: 100-129 Borderline High: 130-159 High: 160-189 Very High: >189 7 Total 25-Hydroxyvitamin D2 and D3 (25-OH-VitD) <10 ng/mL (severe deficiency) 10-19 ng/mL (mild to moderate deficiency) 20-50 ng/mL (optimum levels) 51-80 ng/mL (increased risk of hypercalciuria) >80 ng/mL (toxicity possible) 8 Consistent with Previous Results Reported on 07/11/19 9 Consistent with Previous Results Reported on 07/04/19 10 Consistent with Previous Results Reported on 06/27/19 11 Consistent with Previous Results Reported on 06/20/19 12 REFERENCE VALUE 0.00 - 1.75 ADDITIONAL INFORMATION At a decision limit of 1.75 IU/L, this assay has 97% sensitivity and 99% specificity for detection of Graves' disease. In healthy individuals and in patients with thyroid disease without diagnosis of Graves' disease, the upper limit of anti-TSHR values are 1.22 IU/L and 1.58 IU/L, respectively (97.5th percentiles). Test Performed by: [facility] [address] [place] [address] 13 Consistent with Previous Results Reported on 06/13/19 14 Consistent with Previous Results Reported on 06/10/19 15 Standard intensity warfarin therapeutic range: 2.0-3.0 High intensity warfarin therapeutic range: 2.5-3.5 16 Consistent with Previous Results Reported on 06/08/19 17 [facility] Severe Sepsis and Septic Shock [...] 5 Kidney failure <15 (or dialysis) 19 Troponin-I testing on Plasma Separator Tubes (PST) has a known false positive rate of 0.20-0.40%. All positive troponins reflex immediately to secondary confirmatory testing. Using the [employer] Access Immunoassay systems, the 99th percentile upper reference limit was demonstrated to be < 0.03 ng/mL. 20 Consistent with Previous Results Reported on 04/22/19 21 Consistent with Previous Results Reported on 05/11/19 22 Because ethnic data is not always [...] 5 Kidney failure <15 (or dialysis) 23 Copy Result to: ARLEN HENDERSON ([id number]) 24 Copy Result to: ARLEN HENDERSON ([id number]) 25 run stat Copy Result to: AMITA ENNIS ([id number]) 26 run stat Copy Result to: AMITA ENNIS ([id number]) 27 run stat Copy Result to: AMITA ENNIS ([id number]) 28 run stat Copy Result to: AMITA ENNIS ([id number]) 29 Because ethnic data is not always [...] 5 Kidney failure <15 (or dialysis) 30 Consistent with Previous Results Reported on 05/04/19 Procedures Date Code Description Status 10/07/2019 98416 EKG Tracing & Interpretation Completed 08/03/2019 67917 Laparoscopy, Surgical, Splenectomy Completed 08/03/2019 08704 Laparoscopy, Surgical, Splenectomy Completed 07/20/2019 [id number] Mammogram Completed 06/24/2019 28125 EKG Tracing & Interpretation Completed 05/24/2019 61518 EKG Tracing & Interpretation Completed 05/17/2019 77465 EKG Tracing & Interpretation Completed 03/08/2018 [id number] Mammogram Completed 11/18/2017 [id number] Bone Mineral Density Test Completed 02/17/2017 [id number] Mammogram Completed 02/15/2016 [id number] Mammogram Completed 10/31/2014 [id number] Bone Mineral Density Test Completed 10/31/2014 [id number] Mammogram Completed 11/07/2013 [id number] Mammogram Completed 09/09/2012 [id number] Bone Mineral Density Test Completed 09/09/2012 [id number] Mammogram Completed 07/01/2011 [id number] Colonoscopy Completed 04/15/2011 [id number] Mammogram Completed 02/07/2010 [id number] Bone Mineral Density Test Completed 02/07/2010 [id number] Mammogram Completed Medical Devices Description No Information Available Encounters Type Date Location Provider Dx Diagnosis Office Visit 10/07/2019 [facility] Arlen Henderson, Q87.410 Marfan's syndrome 2:20p Of [employer] M.D. 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 thrombocytopenic Ccmob purpura Office Visit 07/15/2019 [facility] Internal Amita M54.2 Cervicalgia 10:40a Ninfa Ennis M.D. 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 Office Visit 05/19/2019 Surgical Beto Samaniego, D69.3 Immune 11:30a [facility] thrombocytopenic Post Office Manager purpura I48.0 Paroxysmal atrial fibrillation Office Visit 05/17/2019 2:00p [facility] Lety Reyes I48.0 Paroxysmal atrial [facility] MANAGER HEART FAILURE fibrillation D69.6 Thrombocytopenia, unspecified Z79.899 Other remote computer terminal operator (current) drug therapy I71.2 Thoracic aortic aneurysm, without rupture Assessments Date Code Description Provider 11/09/2019 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 dilation 10/07/2019 I48.0 Paroxysmal atrial fibrillation Arlen Henderson M.D. 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 10/07/2019 I71.2 Thoracic aortic aneurysm, without Arlen Henderson M.D. 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 10/07/2019 R05 Cough Arlen Henderson M.D. 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 07/15/2019 E78.5 Hyperlipidemia, unspecified Amita Ennis M.D. 07/15/2019 M81.0 Age-related osteoporosis without Amita Cotton, M.D. 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 Beto Samaniego MD, [facility] 05/19/2019 I48.0 Paroxysmal atrial fibrillation Beto Samaniego MD, FACS 05/17/2019 I48.0 Paroxysmal atrial fibrillation Jared Garcia M.D., [facility] , [facility] 05/17/2019 I48.0 Paroxysmal atrial fibrillation Lety Thuman, MANAGER HEART FAILURE 05/17/2019 D69.6 Thrombocytopenia, unspecified Lety Thuman, MANAGER HEART FAILURE 05/17/2019 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 at [facility]01/13/2020 11:00 am - Amita Ennis M.D. at [facility] Internal Medicine - [facility]11/09/2019 - Fern Jean M.D., FACPD69.3 Immune thrombocytopenic purpuraComments:ITP:It sounds like you have been through quite a difficult stretch this year between this and the AF.Your recent spontaneous bruising and the petechiae are concerning. It is possible that some of thiscould be due to the Eliquis. I will contact you with the test results tomorrow.Follow up:as [email or web address] Paroxysmal atrial fibrillationComments: PAROXYSMAL ATRIAL FIBRILLATION:Your heart rate is well controlled. I understand that you are also followed by Dr. Henderson and that an ablation is planned for 11/2019. Functional Status Description No Information Available Mental Status Description No Information Available Referrals Refer to Reason for Referral Status Appt Date Beto Samaniego MD FOR 08/03/19 ---72886--- INPATIENT Created [address] [place] [address] [phone] Edgardo Hunt, PH.D. History of Marfan's, aneurysm, dissections at [facility] as soon as possible please. [address] [place] [address] [phone] Cem Kc M.D. Sent 06/21/[address] [place] [address] [place] [id number] [phone] Beto Samaniego MD FOR 06/14/19 ---13001--- INPATIENT Created [address] [place] [address] [phone]
--- OUTSIDE RECORDS SUMMARY | 2019-11-10 17:47 | XMS REPORT | Continuity of Care Document ---
:1955 External Reference #:[id number] Author Name Arlen Henderson M.D. (transmitted by agent of provider Colleen العلي) Address [address] [place] [address] Care Team Providers Name Role Phone Other Physician Practices Care Team Information Political Organizer Unavailable Amita Ennis MD - Internal Care Team Information Political Organizer [phone] Medicine Channing Coyle M.D. - Hematology & Care Team Information Political Organizer Oncology Arlen Henderson MD - Cardiovascular Care Team Information Political Organizer [phone] Disease Cem Kc M.D. - Neurology Care Team Information Political Organizer [phone] Beto Samaniego MD - Surgery Care Team Information Political Organizer [phone] Problems Active Problems Provider Date Marfan's syndrome Fern Jean M.D., FACNelly Onset: 03/17/2011 Hypothyroidism Fern Jean M.D., MIA Onset: 03/17/2011 Mitral valve disorder Meir Bone M.D., [facility] Onset: 09/13/2014 Note: mitral valave insufficiency Osteoporosis Zulay Kraus M.D. Onset: 11/07/2014 Scoliosis deformity of spine Zulay Kraus M.D. Onset: 11/07/2014 Tendinosis Zulay Kraus M.D. Onset: 02/19/2015 Note: rotatot cuff with AC joint OA Thoracic aortic ectasia Meir Bone M.D., [facility] Onset: 10/10/2015 Arachnoid cyst Zulay Kraus M.D. Onset: 10/23/2015 Note: L anterior fossa Disturbance in sleep behavior Yudi Louie MD Onset: 12/18/2015 Paroxysmal atrial fibrillation Meir Bone M.D., [facility] Onset: 2015 Headache Cem Kc M.D. Onset: [...] For Denies Drug Use Smoking Status Reviewed: 10/07/19 Patient has never smoked Exercise Type/Frequency Does [...] mouth Lety Reyes, 04/18/2019 twice a day TREATMENT SPECIALIST Metoprolol Tartrate take 1 tablet 180tabs I48.0 Areln Hendesron, 04/11/2019 25mg oral twice a M.D. Tablets day. Amiodarone HCL 1 tab by mouth 90tabs I48.0 Lety Reyes, 04/11/2019 200mg every day with TREATMENT SPECIALIST Tablets meal Eliquis 1 by mouth 90tabs [...] 1 tab bid Zulay Kraus, 02/05/2016 M.D. [id number] Tablets Potassium Chloride ER 2 tabs by mouth 360caps Arlen Padroner, 10/23/2015 10Meq daily. M.D. Capsules ER Selenium 1 tab po qd Unknown 200mcg Tablets History Medications Tylenol 8 Hour 1 by mouth six 90tabs Amita Raymon, 08/05/2019 - times a day as M.D. 10/06/2019 650mg Tablets ER needed for pain Oxycodone-Acetamino 1 tabs by mouth 12tabs Amita Raymon, 08/05/2019 - phen every 4 hours M.D. 10/06/2019 5-325mg as needed for Tablets pain Metoprolol Tartrate 1 by mouth 180tabs Zulay Kraus, 04/07/2019 - twice a day M.D. 04/11/2019 50mg Tablets Prednisone 2 by mouth once 9tabs Zulay Kraus, 04/07/2019 - 20mg daily M.D. 04/11/2019 Tablets Tramadol HCL 1 tablet every 10tabs M25.511 Zulayvalarie Kraus, 04/07/2019 - 50mg 12 hours as M.D. 04/10/2019 Tablets needed for pain. Medications Administered in Office Medication SIG Qnty Indications Ordering Provider Date [facility] pharmacy administered Unknown 01/11/2019 Injection Inj, Regadenoson, 0.1 MG Edson Smith M.D. 07/22/2013 Injection Technetium TC 99M TetrofosminEdson M.D. 07/22/2013 Per Unit Dose Up To 40 Millicuries Injection Immunizations CPT Code Status Date Vaccine Lot # 27075 Given 10/09/2018 Influenza Virus Vaccine, Quadrivalent, Split, Preservative Free 09293 Given 07/19/2018 Zoster (Shingles) Vaccine (HZV), Recombinant, Subunit, Adjuvanted 47214 Given 07/19/2018 Zoster (Shingles) Vaccine (HZV), Recombinant, Subunit, Adjuvanted 83994 Given 10/20/2017 Influenza Virus Vaccine, Quadrivalent, Split, [id number] Preservative Free 69958 Given 11/26/2016 Influ Virus Vaccine, Quadrivalent, Split Virus, [place] [address] Given 2015 Influenza Virus Vaccine, Quadrivalent, Split, Preservative Free 63777 Given 10/17/2014 Tdap - Tetanus/Diptheria/Acellular Pertussis [id number] 73884 Given 10/17/2014 Flu Vaccine Split Virus Preservative Free For [id number] Indiv 3Yr Older 87917 Given 09/05/2013 Flu Vaccine Split Virus Preservative Free For [id number] Indiv 3Yr Older Q2038 Given 09/01/2012 Fluzone Vaccine [id number] 65402 Given 01/30/2010 Influenza Virus Vaccine, Pandemic Formulation 93627 Given 01/30/2010 Administration Swine Flu Shot 29193 Given 01/05/2009 Influenza Virus 3Yrs & Over 00715 Given 11/24/2006 Influenza Virus 3Yrs & Over 51824 Given 11/24/2006 Influenza Virus 3Yrs & Over 79399 Given 2003 Td Toxoids Adsorbed For Use 7Yrs Or Older For Intramuscular Use Vital Signs Date Vital Result Comment 10/07/2019 2:04pm Height 70 inches 5'10" Weight 160.00 lb with shoes Heart Rate 62 /min BP Systolic Sitting 102 mmHg LA BP Diastolic Sitting 70 mmHg LA BP Systolic Standing 102 mmHg BP Diastolic Standing 76 mmHg BMI (Body Mass Index) 23.0 kg/m2 Ejection Fraction 50-55% Echo 04/04/19 08/12/2019 3:33pm Heart Rate 60 /min BP Systolic Sitting 102 mmHg BP Diastolic Sitting 64 mmHg Respiratory Rate 12 /min Body Temperature 96.9 F Results Test Acquired Date Facility Test Result H/L Range Note CBC Auto 09/16/2019 [facility] White Blood 8.3 10^3/uL Normal 3.5-10.[address] [place] [address] [phone] Red Blood Count 5.04 10^6/uL High 3.70-4.87 [...] Blood Cells % 0.0 CBC Auto 08/09/2019 [facility] White Blood 8.4 10^3/uL Normal 3.5-10.[address] [place] [address] [phone] Red Blood Count 4.95 10^6/uL High 3.70-4.87 [...] Blood Cells % 0.0 CBC Auto 08/02/2019 [facility] White Blood 8.1 10^3/uL Normal 3.5-10.[address] [place] [address] [phone] Red Blood Count 5.09 10^6/uL High 3.70-4.87 [...] Blood Cells % 0.1 CBC Auto 07/25/2019 [facility] White Blood 7.3 10^3/uL Normal 3.5-10.[address] [place] [address] [phone] Red Blood Count 4.93 10^6/uL High 3.70-4.87 [...] Blood Cells % 0.1 Lipid Profile 07/19/2019 [facility] Triglycerides 160 mg/dL 3 (Trig/Chol/HDL) [address] [place] [address] [phone] Cholesterol 199 mg/dL 4 HDL Cholesterol 44.7 mg/dL 5 LDL Cholesterol 122 mg/dL 6 Laboratory test 07/19/2019 [facility] Vitamin D 44.4 ng/mL Normal 20-50 [address] Total 25(Oh) [place] [address] [phone] CBC Auto Diff 07/18/2019 [facility] White Blood 8.1 Normal 3.5 -10.[address] Count 10^3/[place] [address] [phone] Red Blood Count 4.93 10^6/uL High 3.70-4.87 [...] Blood Cells % 0.0 CBC Auto 07/11/2019 [facility] White Blood 6.3 10^3/uL Normal 3.5-10.[address] [place] [address] [phone] Red Blood Count 4.84 10^6/uL Normal 3.70-4.87 [...] Blood Cells % 0.0 CBC Auto 07/04/2019 [facility] White Blood 7.2 10^3/uL Normal 3.5-10.[address] [place] [address] [phone] Red Blood Count 4.88 10^6/uL High 3.70-4.87 [...] Blood Cells % 0.0 CBC Auto 06/27/2019 [facility] White Blood 7.1 10^3/uL Normal 3.5-10.[address] [place] [address] [phone] Red Blood Count 4.97 10^6/uL High 3.70-4.87 [...] Blood Cells % 0.0 Laboratory test 06/21/2019 [facility] TSH Receptor <1.00 IU/L [address] [place] [address] [phone] Thyroperoxidase AB 933.31 IU/mL High <9 TSH (Thyroid Stim Horm) 1.18 mcIU/mL Normal 0.34-5.60 Free T4 (Free Thyroxine) 1.46 ng/dL High 0.61-1.12 CBC Auto 06/20/2019 [facility] White Blood 6.4 10^3/uL Normal 3.5-10.[address] [place] [address] [phone] Red Blood Count 4.80 10^6/uL Normal 3.70-4.87 [...] Blood Cells % 0.0 CBC Auto 06/13/2019 [facility] White Blood 7.2 10^3/uL Normal 3.5-10.[address] [place] [address] [phone] Red Blood Count 4.83 10^6/uL Normal 3.70-4.87 [...] Red Blood Cells % 0.0 Laboratory 06/10/2019 [facility] Partial 38.1 High 26.0-38.0 test finding [address] [facility] [place] [address] PTT [phone] Inr/Protime 06/10/2019 [facility] Inr 1.14 High 0.82-1.[address] [place] [phone] Laboratory 06/10/2019 [facility] Magnesium 2.0 mg/dL Normal 1.9-2.7 test finding [facility] [place] [address] [phone] Creatine Kinase(CK) 26 U/L Normal 10-223 Lactic Acid 0.5 mmol/L Normal 0.5-2.0 16 Comp Metabolic 06/10/2019 [facility] Sodium 138 mmol/L Normal 135-[address] [place] [phone] Potassium 4.2 mmol/L Normal 3.5-5.0 Chloride 106 [...] Egfr Non- 76.0 >60 Egfr 91.9 >60 17 CKMB 06/10/2019 [facility] CKMB ng/mL 1.1 ng/mL Normal 0.6- 6.[address] [place] [address] [phone] Laboratory test 06/10/2019 [facility] B-Type 153 pg/mL High <= [address] [place] [address] Peptide BNP [phone] Troponin-I (TnI) 0.01 ng/mL <0.04 18 CBC Auto 06/10/2019 [facility] White Blood 6.5 10^3/uL Normal 3.5-10.[address] [place] [address] [phone] Red Blood Count 4.80 10^6/uL Normal 3.70-4.87 Hemoglobin 13.3 g/dL Normal 12.0-16.0 Hematocrit 41 % Normal 35-47 Mean Corpuscular Volume 85 fL Normal 80-97 Mean Corpuscular Hemoglobin 28 pg Normal 27-31 Mean Corpuscular HGB Conc 33 g/dL Normal 31-36 Red Cell Distribution Width 14 % Normal 10-15 Platelet Count 77 10^3/uL Low 150-450 19 Mean Platelet Volume 9.5 fL Normal 7.4-10.4 [...] Red Blood Cells % 0.1 CBC Auto 06/08/2019 [facility] White Blood 7.1 10^3/uL Normal 3.5-10.[address] [place] [address] [phone] Red Blood Count 4.90 10^6/uL High 3.70-4.87 [...] Blood Cells % 0.1 CBC Auto 05/31/2019 [facility] White Blood 7.8 10^3/uL Normal 3.5-10.[address] [place] [address] [phone] Red Blood Count 4.88 10^6/uL High 3.70-4.87 [...] Blood Cells % 0.0 Basic Metabolic 05/31/2019 [facility] Sodium 137 mmol/L Normal 135-[address] [place] [address] [phone] Potassium 4.4 mmol/L Normal 3.5-5.0 Chloride 103 mmol/L Normal 101-111 Co2 Carbon Dioxide 28 mmol/L Normal 22-32 Anion Gap 6 mmol/L Normal 2-11 Glucose 84 mg/dL Normal 70-100 Blood Urea Nitrogen 15 mg/dL Normal 6-24 Creatinine 0.75 mg/dL Normal 0.51-0.95 BUN/Creatinine Ratio 20.0 Normal 8-20 Calcium 9.1 mg/dL Normal 8.6-10.3 Egfr Non- 78.3 >60 Egfr 94.7 >60 22 Laboratory 05/31/2019 [facility] Magnesium 1.9 mg/dL Normal 1.9-2.7 test finding [address] [place] [address] [phone] Type & Screen 05/31/2019 [facility] Patient Blood A Positive [address] [place] [address] [phone] Antibody Screen NEGATIVE Laboratory test 05/24/2019 [facility] Erythrocyte Sed 26 mm/Hr Normal 0-[address] [place] [address] [phone] Lyme Screen W/ Reflex To WB Negative Negative 24 CBC Auto 05/24/2019 [facility] White Blood 7.9 10^3/uL Normal 3.5-10.[address] [place] [address] [phone] Red Blood Count 4.82 10^6/uL Normal 3.70-4.87 [...] Blood Cells % 0.1 CBC Auto 05/18/2019 [facility] White Blood 8.9 10^3/uL Normal 3.5-10.[address] [place] [address] [phone] Red Blood Count 4.73 10^6/uL Normal 3.70-4.87 [...] Blood Cells % 0.2 Basic Metabolic 05/17/2019 [facility] Sodium 137 mmol/L Normal 135-[address] [place] [address] [phone] Potassium 4.3 mmol/L Normal 3.5-5.0 Chloride 103 mmol/L Normal 101-111 Co2 Carbon Dioxide 28 mmol/L Normal 22-32 Anion Gap 6 mmol/L Normal 2-11 Glucose 110 mg/dL High 70-100 Blood Urea Nitrogen 15 mg/dL Normal 6-24 Creatinine 0.82 mg/dL Normal 0.51-0.95 BUN/Creatinine Ratio 18.3 Normal 8-20 Calcium 8.9 mg/dL Normal 8.6-10.3 Egfr Non- 70.6 >60 Egfr 85.5 >60 25 Laboratory test 05/17/2019 [facility] Magnesium 2.0 mg/dL Normal 1.9-2.7 [address] [place] [address] [phone] TSH (Thyroid Stim Horm) 1.86 mcIU/mL Normal 0.34-5.60 27 T3 Free 2.80 pg/mL Normal 2.5-3.9 28 Free T4 (Free Thyroxine) 1.45 ng/dL High 0.61-1.12 29 CBC Auto 05/11/2019 [facility] White Blood 8.4 10^3/uL Normal 3.5-10.[address] [place] [address] [phone] Red Blood Count 4.58 10^6/uL Normal 3.70-4.87 [...] Blood Cells % 0.0 CBC Auto 05/04/2019 [facility] White Blood 10.2 10^3/uL Normal 3.5-10.[address] [place] [address] [phone] Red Blood Count 4.75 10^6/uL Normal 3.70-4.87 Hemoglobin 13.8 g/dL Normal 12.0-16.0 Hematocrit 42 % Normal 35-47 Mean Corpuscular Volume 88 fL Normal 80-97 Mean Corpuscular Hemoglobin 29 pg Normal 27-31 Mean Corpuscular HGB Conc 33 g/dL Normal 31-36 Red Cell Distribution Width 15 % Normal 10.5-15 Platelet Count 95 10^3/uL Low 150-450 31 Mean Platelet Volume 9.5 fL Normal 7.4-10.4 [...] Red Blood Cells % 0.1 Comp Metabolic 04/27/2019 [facility] Sodium 136 mmol/L Normal 135-[address] [place] [address] [phone] Potassium 4.2 mmol/L Normal 3.5-5.0 Chloride 103 [...] Egfr Non- 68.7 >60 Egfr 83.1 >60 32 CBC Auto 04/27/2019 [facility] White Blood 12.4 10^3/uL High 3.5-10.[address] [place] [address] [phone] Red Blood Count 4.69 10^6/uL Normal 3.70-4.87 Hemoglobin 13.3 g/dL Normal 12.0-16.0 Hematocrit 42 % Normal 35-47 Mean Corpuscular Volume 88 fL Normal 80-97 Mean Corpuscular Hemoglobin 28 pg Normal 27-31 Mean Corpuscular HGB Conc 32 g/dL Normal 31-36 Red Cell Distribution Width 15 % Normal 10.5-15 Platelet Count 45 10^3/uL Low 150-450 33 Mean Platelet Volume 10.5 fL High 7.4-10.4 [...] % Nucleated Red Blood Cells % 0.3 CBC Auto 04/22/2019 [facility] White Blood 15.2 10^3/uL High 3.5-10.[address] [place] [address] [phone] Red Blood Count 4.88 10^6/uL High 3.70-4.87 [...] Blood Cells % 0.0 Comp Metabolic 04/22/2019 [facility] Sodium 135 mmol/L Normal 135-145 Panel [address] [place] [address] [phone] Potassium 4.3 mmol/L Normal 3.5-5.0 Chloride 102 [...] Egfr Non- 77.1 >60 Egfr 93.3 >60 34 Laboratory test 04/22/2019 [facility] Magnesium 2.1 mg/dL Normal 1.9-2.7 finding [address] [place] [address] [phone] Comp Metabolic 04/15/2019 [facility] Sodium 133 mmol/L Low 135 -[address] [place] [address] [phone] Potassium 3.9 mmol/L Normal 3.5-5.0 Chloride 104 [...] Egfr Non- 90.7 >60 Egfr 109.8 >60 35 CBC Auto 04/15/2019 [facility] White Blood 9.7 10^3/uL Normal 3.5-10.[address] [place] [address] [phone] Red Blood Count 4.53 10^6/uL Normal 3.70-4.87 Hemoglobin 13.2 g/dL Normal 12.0-16.0 Hematocrit 41 % Normal 35-47 Mean Corpuscular Volume 90 fL Normal 80-97 Mean Corpuscular Hemoglobin 29 pg Normal 27-31 Mean Corpuscular HGB Conc 32 g/dL Normal 31-36 Red Cell Distribution Width 15 % Normal 10.5-15 Platelet Count 34 10^3/uL Low 150-450 36 Mean Platelet Volume 10.4 fL Normal 7.4-10.4 [...] Cells % 0.0 Comp Metabolic Panel 04/08/2019 [facility] Sodium 134 mmol/L Low 135-[address] [place] [address] [phone] Potassium 4.5 mmol/L Normal 3.5-5.0 Chloride 102 [...] Egfr Non- 87.7 >60 Egfr 106.1 >60 37 CBC Auto 04/08/2019 [facility] White Blood 12.4 10^3/uL High 3.5-10.[address] [place] [address] [phone] Red Blood Count 4.52 10^6/uL Normal 3.70-4.87 [...] IU/L, respectively (97.5th percentiles). Test Performed by: [facility] [address] [facility], [place] [address] 13 Consistent with Previous Results Reported on 06/13/19 14 Consistent with Previous Results Reported on 06/10/19 15 Standard intensity warfarin therapeutic range: 2.0-3.0 High intensity warfarin therapeutic range: 2.5-3.5 16 [facility] Severe Sepsis and [...] 5 Kidney failure <15 (or dialysis) 18 Troponin-I testing on Plasma Separator Tubes (PST) has a known false positive rate of 0.20-0.40%. All positive troponins reflex immediately to secondary confirmatory testing. Using the [employer] DxI 800 Access Immunoassay systems, the 99th percentile upper reference limit was demonstrated to be < 0.03 ng/mL. 19 Consistent with Previous Results Reported on 06/08/19 20 Consistent with Previous Results Reported on [...] dialysis) 23 Copy Result to: ARLEN HENDERSON ([id number]) 24 Copy Result to: ARLEN HENDERSON ([id number]) 25 Because ethnic data is not always [...] 5 Kidney failure <15 (or dialysis) 26 run stat Copy Result to: AMITA NENIS ([id number]) 27 run stat Copy Result to: AMITA ENNIS ([id number]) 28 run stat Copy Result to: AMITA ENNIS ([id number]) 29 run stat Copy Result to: AMITA ENNIS ([id number]) 30 Consistent with Previous Results Reported on 05/04/19 31 Consistent with Previous Results Reported on 04/27/19 32 Because ethnic data is not always [...] 5 Kidney failure <15 (or dialysis) 33 Consistent with Previous Results Reported on 04/22/19 34 Because ethnic data is not always [...] 36 Consistent with Previous Results Reported on 04/08/19 37 Because ethnic data is not always [...] 15-29 5 Kidney failure <15 (or dialysis) Procedures Date Code Description Status 10/07/2019 00082 EKG Tracing & Interpretation Completed 08/03/2019 09550 Laparoscopy, Surgical, Splenectomy Completed 08/03/2019 13873 Laparoscopy, Surgical, Splenectomy Completed 07/20/2019 [id number] Mammogram Completed 06/24/2019 85998 EKG Tracing & Interpretation Completed 05/24/2019 52448 EKG Tracing & Interpretation Completed 05/17/2019 03056 EKG Tracing & Interpretation Completed 05/02/2019 15118 EKG, Interpretation Only Completed 05/02/2019 85815 Cardioversion Completed 04/29/2019 20212 EKG Tracing & Interpretation Completed 04/27/2019 09035 Cardioversion Completed 04/27/2019 41043 EKG, Interpretation Only Completed 04/27/2019 71103 Moderate Sedation Services; Same Phys Intl 15 Mins; PT Completed >= 5 Years 04/27/2019 15129 Color Flow Doppler/Interp & Reprt Completed 04/27/2019 77446 Pulse Wave/Continuous-Interp.RPT Completed 04/27/2019 74908 Echocardiography, Transesophageal, Real Time W/Image Completed 2D W/W/O M-M 04/18/2019 56925 EKG Tracing & Interpretation Completed 04/11/2019 05948 EKG Tracing & Interpretation Completed 03/08/2018 [id number] Mammogram Completed 11/18/2017 [id number] Bone Mineral Density Test Completed 02/17/2017 [id number] Mammogram Completed 02/15/2016 [id number] Mammogram Completed 10/31/2014 [id number] Bone Mineral Density Test Completed 10/31/2014 20140901 Mammogram Completed 11/07/2013 05249770 Mammogram Completed 09/09/2012 813544646 Bone Mineral Density Test Completed 09/09/2012 [id number] Mammogram Completed 07/01/2011 [id number] Colonoscopy Completed 04/15/2011 [id number] Mammogram Completed 02/07/2010 589673864 Bone Mineral Density Test Completed 02/07/2010 [id number] Mammogram Completed Medical Devices Description No Information Available Encounters Type Date Location Provider Dx Diagnosis Office Visit 10/07/2019 [facility] Arlen Henderson, Q87.410 Marfan's syndrome 2:20p Of Furnace Combustion Analyst M.D. 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 thrombocytopenic Ccmob purpura Office Visit 07/15/2019 [facility] Internal Amita M54.2 Cervicalgia 10:40a Ninfa Ennis M.D. 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 Office Visit 05/19/2019 Surgical Beto Samaniego, D69.3 Immune 11:30a [facility] thrombocytopenic Furnace Combustion Analyst purpura I48.0 Paroxysmal atrial fibrillation Office Visit 05/17/2019 2:00p [facility], I48.0 Paroxysmal atrial [facility] TREATMENT SPECIALIST fibrillation D69.6 Thrombocytopenia, unspecified Z79.899 Other terminal press operator (current) drug therapy I71.2 Thoracic aortic aneurysm, without rupture Office Visit 04/29/2019 4:20p [facility] Arlen Henderson I48.0 Paroxysmal atrial Of Latrell Lugo fibrillation D69.6 Thrombocytopenia, unspecified Office Visit 04/18/2019 2:00p [facility], I48.0 Paroxysmal atrial TREATMENT SPECIALIST fibrillation D69.6 Thrombocytopenia, unspecified Z79.899 Other care home (current) drug therapy M79.605 Pain in left leg Office Visit 04/12/2019 10:00a [facility] Internal Amita I48.0 Paroxysmal atrial Medicine Milly Ennis M.D. fibrillation Ccmob D69.6 Thrombocytopenia, unspecified M25.561 Pain in right knee K21.9 Gastro-esophageal reflux disease without esophagitis Office Visit 04/11/2019 3:00p [facility], I48.0 Paroxysmal atrial TREATMENT SPECIALIST fibrillation D69.6 Thrombocytopenia, unspecified E87.6 Hypokalemia Z79.899 Other care home (current) drug therapy Assessments Date Code Description Provider 10/07/2019 Q87.410 Marfan's syndrome with aortic Arlen [...] Ennis M.D. 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 Beot Samaniego MD, FACS 05/19/2019 I48.0 Paroxysmal atrial fibrillation Beto Samaniego MD, FACS 05/17/2019 I48.0 Paroxysmal atrial fibrillation Jared Garcia M.D., [facility] , [facility] 05/17/2019 I48.0 Paroxysmal atrial fibrillation Lety Reyes NP 05/17/2019 D69.6 Thrombocytopenia, unspecified Lety Reyes, DAVID 05/17/2019 Z79.899 Other terminal press operator (current) drug Lety Reyes NP therapy 05/17/2019 I71.2 Thoracic aortic aneurysm, without Lety Reyes NP rupture 05/02/2019 R94.31 Abnormal electrocardiogram [ECG] Meir Bone M.D., [facility] [EKG] 05/02/2019 I48.0 Paroxysmal atrial fibrillation Edson Smith M.D. 04/29/2019 I48.0 Paroxysmal atrial fibrillation Arlen Henderson M.D. 04/29/2019 D69.6 Thrombocytopenia, unspecified Arlen Henderson M.D. 04/27/2019 R94.31 Abnormal electrocardiogram [ECG] Cali Becker M.D. [EKG] 04/27/2019 I48.0 Paroxysmal atrial fibrillation Arlen Henderson M.D. 04/18/2019 I48.0 Paroxysmal atrial fibrillation Arlen Henderson M.D. 04/18/2019 I48.0 Paroxysmal atrial fibrillation Lety Thuman, TREATMENT SPECIALIST 04/18/2019 D69.6 Thrombocytopenia, unspecified Lety Thuman, TREATMENT SPECIALIST 04/18/2019 Z79.899 Other terminal press operator (current) drug Lety Thbalaji, TREATMENT SPECIALIST therapy 04/18/2019 M79.605 Pain in left leg Lety Thuman, TREATMENT SPECIALIST 04/12/2019 I48.0 Paroxysmal atrial fibrillation Amita Ennis M.D. 04/12/2019 D69.6 Thrombocytopenia, unspecified Amita Ennis M.D. 04/12/2019 M25.561 Pain in right knee Amita Ennis M.D. 04/12/2019 K21.9 Gastro-esophageal reflux disease Amita Ennis M.D. without esophagitis 04/11/2019 R94.31 Abnormal electrocardiogram [ECG] Arlen Henderson M.D. [EKG] 04/11/2019 I48.0 Paroxysmal atrial fibrillation Lety Thuman, TREATMENT SPECIALIST 04/11/2019 D69.6 Thrombocytopenia, unspecified Lety Thuman, TREATMENT SPECIALIST 04/11/2019 E87.6 Hypokalemia Lety Thuman, TREATMENT SPECIALIST 04/11/2019 Z79.899 Other care home (current) drug Lety Thuman, TREATMENT SPECIALIST therapy Plan of Treatment Future Appointment(s):01/10/2020 11:15 am - Arlen Henderson M.D. at [facility]01/13/2020 11:00 am - Amita Ennis M.D. at [facility] Internal Medicine - [facility]10/07/2019 - Arlen Henderson M.D.Q87.410 Marfan's syndrome with aortic dilationNew Xrays:Chest PA & Lat 2 VWS, Ordered: 10/07/19I48.0 Paroxysmal atrial fibrillationNew Xrays:Chest PA & Lat 2 VWS, Ordered: 10/07Comments:On Amiodarone in normal rhythm.Should follow thyroid, LFT's, if on care home update lung testing.If none recently I will update.Dr Chaudhry seeing in SeptemberFoll up:December with ECG Earlier PRN post afib ablation.D69.3 Immune thrombocytopenic purpuraComments:s/p [id number] Thoracic aortic aneurysm, without ruptureComments:On [id number] Dissection of carotid arteryComments:Sees Dr Anne05 CoughNew Xrays:Chest PA & Lat 2 VWS, Ordered : 10/07/19 Functional Status Description No Information Available Mental Status Description No Information Available Referrals Refer to Reason for Referral Status Appt Date Beto Samaniego MD FOR 08/03/19 ---[id number]--- INPATIENT Created [address] [place] [address] [place] [address] [phone] Edgardo Hunt, PH.D. History of Marfan's, aneurysm, dissections at [facility] [place] Location as soon as possible please. [address] [place], [place] [id number] [phone] Cem Kc M.D. Sent 06/21/[address] [place] [address] [place] [id number] [phone] Beto Samaniego MD FOR 06/14/19 ---[id number]--- INPATIENT Created [address] [place], [place] [id number] [phone] Darian Chaudhry MD Sent [address] [facility] [address] [place] [address] [phone]
[2019-11-10] MEDS ORDERED: NS 0.9% 1000 ML** 1,000 ML IV SCH (18:30)
[2019-11-10] MEDS: Potassium Chlor TAB* 20 MEQ TAB.ER PO SCH (20:16)
[2019-11-10] MEDS: Metoprolol Tartrate TAB* 25 MG PO SCH (20:16)
[2019-11-10] MEDS: Magnesium Oxide TAB* 400 MG PO SCH (20:16)
[2019-11-11] MEDS: Levothyroxine TAB* 100 MCG TAB PO SCH (06:15)
[2019-11-11 06:29] LABS: Hematocrit 37 % (35-47); Hemoglobin 12.3 g/dL (12.0-16.0); Mean Corpuscular HGB Conc 33 g/dL (31-36); Mean Corpuscular Hemoglobin 28 pg (27-31); Mean Corpuscular Volume 86 fL (80-97); Red Blood Count 4.35 10^6 /uL (3.70-4.87); Red Cell Distribution Width 16 % (10-15); White Blood Count 5.9 10^3/uL (3.5-10.8)
[2019-11-11] MEDS: Cyanocobalamin TAB* 500 MCG PO SCH (08:42)
[2019-11-11] MEDS: Metoprolol Tartrate TAB* 25 MG PO SCH ×2 (08:42→20:43)
[2019-11-11] MEDS: Potassium Chlor TAB* 20 MEQ TAB.ER PO SCH ×2 (08:42→20:43)
[2019-11-11] MEDS: Magnesium Oxide TAB* 400 MG PO SCH ×2 (08:42→20:43)
[2019-11-11] MEDS: Cholecalciferol TAB* 400 UNIT PO SCH (08:43)
[2019-11-11] MEDS: Amiodarone TAB* 200 MG PO SCH (08:43)
[2019-11-11 08:50] LABS: ABS Lymphocytes 1.5 10^3/ul (1.0-4.8); ABS Monocytes 1.3 10^3/ul (0-0.8); ABS Neutrophils 3.1 10^3/ul (1.5-7.7); ABS Nucleated RBC 0.1 10^3/ul; Eosinophil % 0.1 %; Lymphocyte % 25.1 %; Platelet Count 4 10^3/uL (150-450)
[2019-11-11] MEDS ORDERED: predniSONE TAB* 20 MG PO SCH (09:00)
[2019-11-11] MEDS: Influenza VAC *QUAD* 2019-20* 0.5 ML SYRINGE IM ONE ×2 (09:13→13:07)
[2019-11-11] MEDS: Pantoprazole TAB * 40 MG TAB PO SCH (09:32)
[2019-11-11] MEDS: SELENIUM 200 MCG PO SCH (10:12)
[2019-11-11] MEDS ORDERED: Saline NASAL SPRAY 0.65%* BTL BOTH NARES PRN (18:44)
[2019-11-12] MEDS: Temazepam CAP* 15 MG PO PRN ×2 (00:27→23:06)
[2019-11-12 06:30] LABS: ABS Lymphocytes 2.1 10^3/ul (1.0-4.8); ABS Monocytes 1.8 10^3/ul (0-0.8); Eosinophil % 0.2 %; Hematocrit 37 % (35-47); Hemoglobin 12.3 g/dL (12.0-16.0); Lymphocyte % 20.8 %; Mean Corpuscular HGB Conc 33 g/dL (31-36); Mean Corpuscular Hemoglobin 29 pg (27-31); Mean Corpuscular Volume 86 fL (80-97); Mean Platelet Volume 11.6 fL (7.4-10.4); Nucleated Red Blood Cells % 0.4; Platelet Count 5 10^3/uL (150-450); Red Blood Count 4.28 10^6 /uL (3.70-4.87); Red Cell Distribution Width 16 % (10-15)
[2019-11-12] MEDS: Levothyroxine TAB* 100 MCG TAB PO SCH (07:25)
[2019-11-12] MEDS: Pantoprazole TAB * 40 MG TAB PO SCH (09:01)
[2019-11-12] MEDS: Potassium Chlor TAB* 20 MEQ TAB.ER PO SCH ×2 (09:01→20:26)
[2019-11-12] MEDS: Amiodarone TAB* 200 MG PO SCH (09:01)
[2019-11-12] MEDS: Magnesium Oxide TAB* 400 MG PO SCH ×2 (09:01→20:26)
[2019-11-12] MEDS: Cholecalciferol TAB* 400 UNIT PO SCH (09:01)
[2019-11-12] MEDS: Cyanocobalamin TAB* 500 MCG PO SCH (09:02)
[2019-11-12] MEDS: Metoprolol Tartrate TAB* 25 MG PO SCH ×2 (09:05→20:26)
[2019-11-12] MEDS: SELENIUM 200 MCG PO SCH (09:05)
--- NOTE | 2019-11-12 12:01 | PN ---
Progress Note - Progress Note Date of Service: 11/12/19 SOAP: Subjective: []No change today, still some AMANDA but better. Still bruising. No SHIPMAN. Eating well. No fevers. Tolerating Prednisone, Dex today. Acetaminophen (Tylenol Tab*) 650 mg PO Q4H PRN PRN Reason: MILD PAIN or TEMP > 100.4 Amiodarone HCl (Cordarone Tab*) 200 mg PO QAM [facility] Last Admin: 11/12/19 09:01 Dose: 200 mg Cholecalciferol (Vitamin D Tab*) 400 unit PO QAM [facility] Last Admin: 11/12/19 09:01 Dose: 400 unit Cyanocobalamin (Vitamin B12 Tab*) 1,000 mcg PO QAM [facility] Last Admin: 11/12/19 09:02 Dose: 1,000 mcg Cyclobenzaprine HCl (Flexeril Tab*) 5 mg PO Q8HR PRN PRN Reason: MUSCLE PAIN Dexamethasone Sodium Phosphate (10 mg/ Sodium Chloride) 52.5 mls @ 210 mls/hr IVPB DAILY@1400 [facility] Stop: 11/15/19 14:14 Levothyroxine Sodium (Synthroid Tab*) 100 mcg PO 0600 [facility] Magnesium Oxide (Magox 400 Tab*) 400 mg PO BID [facility] Last Admin: 11/12/19 09:01 Dose: 400 mg Metoprolol Tartrate (Lopressor Tab*) 25 mg PO BID [facility] Last Admin: 11/12/19 09:05 Dose: 25 mg Oxycodone/Acetaminophen (Percocet 5/325 Tab*) 1 tab PO Q4H PRN PRN Reason: PAIN - MODERATE Pantoprazole Sodium (Protonix Tab*) 40 mg PO DAILY [facility] Last Admin: 11/12/19 09:01 Dose: 40 mg Potassium Chloride (Klor Con Er Tab*) 20 meq PO BID [facility] Last Admin: 11/12/19 09:01 Dose: 20 meq Selenium ([facility]elen[facility] (Nf)) [facility] Last Admin: 11/12/19 09:05 Dose: Not Given Sodium Chloride (Sodium Chloride 0.65% Nasal [place]*) 1 spray BOTH NARES Q4H PRN PRN Reason: DRYNESS Last Admin: 11/12/19 00:18 Dose: 1 drop Temazepam (Restoril Cap*) 15 mg PO BEDTIME PRN PRN Reason: INSOMNIA Last Admin: 11/12/19 00:27 Dose: 15 mg Objective: [] Vital Signs Temp Pulse Resp BP Pulse Ox 97.6 F 50 17 106/59 97 11/12/19 07:45 11/12/19 07:45 11/12/19 08:00 11/12/19 07:45 11/12/19 07:45 HEENT: mild epistaxis. no oral lesions CTA RRR S1S2 +BS ND NT Ext tr edema skin: petechial rash, mild bruising. 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 Day 3 of steroids, day 1 of HD Dex. Plan: []1. Dex 40 mg po daily x 4 2. Follow on Telemetry for h/o afib 3. Discharge when Plts > 9
[2019-11-12] MEDS ORDERED: Dexamethasone IV* 10 MG in NS 0.9% 50 ML* 50 ML IVPB SCH (14:00)
[2019-11-13] MEDS ORDERED: Levothyroxine TAB* 100 MCG TAB PO SCH (06:00)
[2019-11-13 06:34] LABS: ABS Lymphocytes 1.1 10^3/ul (1.0-4.8); ABS Monocytes 1.2 10^3/ul (0-0.8); ABS Neutrophils 5.5 10^3/ul (1.5-7.7); Hematocrit 38 % (35-47); Hemoglobin 12.8 g/dL (12.0-16.0); Lymphocyte % 14.6 %; Mean Corpuscular HGB Conc 33 g/dL (31-36); Mean Corpuscular Hemoglobin 29 pg (27-31); Mean Corpuscular Volume 87 fL (80-97); Mean Platelet Volume 12.4 fL (7.4-10.4); Nucleated Red Blood Cells % 0.3; Platelet Count 11 10^3/uL (150-450); Red Cell Distribution Width 16 % (10-15); White Blood Count 7.8 10^3/uL (3.5-10.8)
[2019-11-13 06:36] LABS: Albumin 3.2 g/dL (3.2-5.2); Albumin/Globulin Ratio 1.5 (1-3); BUN/Creatinine Ratio 32.3 (8-20); Calcium 8.4 mg/dL (8.6-10.3); EGFR African American 117.6 (>60); EGFR Non-African American 97.2 (>60); Globulin 2.2 g/dL (2-4); Potassium 4.1 mmol/L (3.5-5.0); Total Bilirubin 0.6 mg/dL (0.2-1.0); Total Protein 5.4 g/dL (6.4-8.9)
--- NOTE | 2019-11-13 07:33 | PN ---
Subjective Date of Service: 11/13/19 Interval History: HD2 on 11/13 63F with PMH Marfan, TAA, recurrent Afib not on AC, ITP here for ITP flare and steroids. Day 4 of steroids, day 2 of IV Dex. VSS no acute events Labs-Plt 11 This morning, no complaints, no bruising or pain. Mild petechia. Eager for d/c. One more dose of IV Dex then stable for PO 40mg Dex x 2 days. Objective Active Medications: Acetaminophen (Tylenol Tab*) 650 mg PO Q4H PRN PRN Reason: MILD PAIN or TEMP > 100.4 Amiodarone HCl (Cordarone Tab*) 200 mg PO QAM [facility] Last Admin: 11/12/19 09:01 Dose: 200 mg Cholecalciferol (Vitamin D Tab*) 400 unit PO QAM [facility] Last Admin: 11/12/19 09:01 Dose: 400 unit Cyanocobalamin (Vitamin B12 Tab*) 1,000 mcg PO QAM [facility] Last Admin: 11/12/19 09:02 Dose: 1,000 mcg Cyclobenzaprine HCl (Flexeril Tab*) 5 mg PO Q8HR PRN PRN Reason: MUSCLE PAIN Dexamethasone Sodium Phosphate (10 mg/ Sodium Chloride) 52.5 mls @ 210 mls/hr IVPB DAILY@1400 [facility] Stop: 11/15/19 14:14 Last Admin: 11/12/19 14:28 Dose: 53 mls/hr Levothyroxine Sodium (Synthroid Tab*) 100 mcg PO 0600 [facility] Last Admin: 11/13/19 06:03 Dose: 100 mcg Magnesium Oxide (Magox 400 Tab*) 400 mg PO BID [facility] Last Admin: 11/12/19 20:26 Dose: 400 mg Metoprolol Tartrate (Lopressor Tab*) 25 mg PO BID [facility] Last Admin: 11/12/19 20:26 Dose: 25 mg Oxycodone/Acetaminophen (Percocet 5/325 Tab*) 1 tab PO Q4H PRN PRN Reason: PAIN - MODERATE Pantoprazole Sodium (Protonix Tab*) 40 mg PO DAILY [facility] Last Admin: 11/12/19 09:01 Dose: 40 mg Potassium Chloride (Klor Con Er Tab*) 20 meq PO BID [facility] Last Admin: 11/12/19 20:26 Dose: 20 meq Selenium (Selenium (Nf)) 200 mcg PO QAM [facility] Last Admin: 11/12/19 09:05 Dose: Not Given Sodium Chloride (Sodium Chloride 0.65% Nasal [place]*) 1 spray BOTH NARES Q4H PRN PRN Reason: DRYNESS Last Admin: 11/12/19 00:18 Dose: 1 drop Temazepam (Restoril Cap*) 15 mg PO BEDTIME PRN PRN Reason: INSOMNIA Last Admin: 11/12/19 23:06 Dose: 15 mg Vital Signs - 8 hr 11/13/19 04:27 Temperature 97.5 F Pulse Rate 55 Respiratory 18 Rate Blood Pressure 110/64 (mmHg) O2 Sat by Pulse 95 Oximetry Oxygen Devices in Use Now: None Appearance: Pleasant in NAD Ears/Nose/Mouth/Throat: NL Teeth, Lips, Gums Neck: NL Appearance and Movements; NL JVP Respiratory: Symmetrical Chest Expansion and Respiratory Effort, Clear to Auscultation Cardiovascular: NL Sounds; No Murmurs; No JVD, - - irreg Abdominal: NL Sounds; No Tenderness; No Distention, No Hepatosplenomegaly Lymphatic: No Cervical Adenopathy Extremities: No Edema Skin: - - Mild bruising Neurological: Alert and Oriented x 3 Result Diagrams: 11/13/19 06:12 11/13/19 06:12 Assess/Plan/Problems-Billing Assessment: 63F with PMH Marfan, TAA, recurrent Afib not on AC, ITP here for ITP flare and steroids. - Patient Problems (1) Thrombocytopenia Current Visit: No Status: Chronic Priority: Medium Code(s): D69.6 - THROMBOCYTOPENIA, UNSPECIFIED SNOMED Code(s): 329631887 Comment: - Secondary to ITP. - Platelets increasing - As per Hematology recommendation, Dex 40mg PO on d/c, last dose of IV Dex today, retime for AM (2) Atrial fibrillation Current Visit: No Status: Chronic Priority: Medium Onset Date: 09/29/14 Code(s): I48.91 - UNSPECIFIED ATRIAL FIBRILLATION SNOMED Code(s): 42730758 Comment: - Rate controlled on Metoprolol and Amiodarone - Not on AC (3) Hypothyroidism Current Visit: No Status: Chronic Code(s): E03.9 - HYPOTHYROIDISM, UNSPECIFIED SNOMED Code(s): 84109516 Comment: - Continue levothyroxine (4) Marfan's syndrome Current Visit: No Status: Chronic Code(s): Q87.40 - MARFAN'S SYNDROME, UNSPECIFIED SNOMED Code(s): 33038983 Comment: - Continue outpatient follow-up with PCP. (5) GERD (gastroesophageal reflux disease) Current Visit: Yes Status: Acute Code(s): K21.9 - GASTRO-ESOPHAGEAL REFLUX DISEASE WITHOUT ESOPHAGITIS SNOMED Code(s): 416337713 Comment: - PPI (6) DVT prophylaxis Current Visit: No Status: Acute Priority: Low Code(s): TRB8506 - SNOMED Code(s): 530102642 Comment: - Precluded (7) Full code status Current Visit: No Status: Acute Code(s): Z78.9 - OTHER SPECIFIED HEALTH STATUS SNOMED Code(s): 414784664 Status and Disposition: Stable to be d/c to home
[2019-11-13] MEDS: Amiodarone TAB* 200 MG PO SCH (08:55)
[2019-11-13] MEDS: Metoprolol Tartrate TAB* 25 MG PO SCH (08:55)
[2019-11-13] MEDS: Cholecalciferol TAB* 400 UNIT PO SCH (08:55)
[2019-11-13] MEDS: Magnesium Oxide TAB* 400 MG PO SCH (08:55)
[2019-11-13] MEDS: Cyanocobalamin TAB* 500 MCG PO SCH (08:55)
[2019-11-13] MEDS: Potassium Chlor TAB* 20 MEQ TAB.ER PO SCH (08:55)
[2019-11-13] MEDS: SELENIUM 200 MCG PO SCH (08:56)
[2019-11-13] MEDS: Pantoprazole TAB * 40 MG TAB PO SCH (08:56)
[2019-11-13] MEDS ORDERED: Dexamethasone IV* 10 MG in NS 0.9% 50 ML* 50 ML IVPB SCH (09:00)
--- NOTE | 2019-11-13 12:48 | DS ---
CC: Dr. Amita Ennis; Dr. Channing Coyle; Dr. Rene Jansen DISCHARGE SUMMARY: DATE OF ADMISSION: 11/10/19 DATE OF DISCHARGE: 11/13/19 PRIMARY CARE PROVIDER: Dr. Amita Ennis. CONSULTING PHYSICIANS DURING THIS HOSPITALIZATION: Dr. Channing Coyle; Dr. Rene Jansen. DISPOSITION AT THE TIME OF DISCHARGE: Stable to be discharged to home. 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 SECONDARY DIAGNOSES: 1. Atrial fibrillation, holding anticoagulation. 2. B12 deficiency. 3. Hypothyroidism. 4. Marfan syndrome. 5. History of migraines. MEDICATIONS AT TIME OF DISCHARGE: 1. Dexamethasone 40 mg p.o. daily for 2 days, status post discharge, confirmed with Dr. Jansen on disc harge. 2. Amiodarone 200 mg p.o. q.a.m. 3. Vitamin D 400 units p.o. q.a.m. 4. Cyanocobalamin 1000 mcg p.o. q.a.m. 5. Cyclobenzaprine 5 mg p.o. q.8 hours p.r.n. 6. Levothyroxine 100 mcg p.o. q.a.m. 7. Magnesium oxide 500 mg p.o. b.i.d. 8. Metoprolol 25 mg p.o. b.i.d. 9. Oxycodone/acetaminophen 5/325 one tab p.o. q.4 hours p.r.n. for pain. 10. Potassium chloride 20 mEq p.o. b.i.d. 11. Selenium 200 mcg p.o. q.a.m. 12. Calcium carbonate with vitamin D tablet, 600 plus vitamin D 1 tab p.o. b.i.d. Medication changes on this hospitalization is the addition of dexamethasone 40 mg p.o. daily for 2 da ys status post discharge and holding apixaban until further instructed by Hematology to resume. HISTORY OF PRESENT ILLNESS AND HOSPITAL COURSE: A 64-year-old female with the above past medical his tory, who is admitted to the hospital on 11/10/19 with complaints of easy bruising, vomiting, nausea with petechiae, nosebleeds, was seen in the clinic and was told to present to the emergency room with platelets of less than 5. The patient also reports that she gets diffuse edema when she has ITP fla re. Her vital signs were stable in the emergency room and her hospital course by problem is as sheri ws: 1. Thrombocytopenia secondary to ITP. The patient was started on IV dexamethasone with improvement to platelets at 11 on 11/13/19. She is to be discharged on oral steroids and follow with office. Th e patient reports no further spontaneous bleeding and stable bruising, unchanged from admission. 2. AFib, on amiodarone and metoprolol. Rate controlled during this hospitalization. We are holding anticoagulation in the setting of platelets being less than 50, it can be resumed by ordnance keeper at baseline. 3. Hypothyroidism. The patient's home Synthroid was given. 4. Marfan syndrome. She has outpatient followup with PCP. 5. GERD. Her PPI was continued. 6. DVT prophylaxis was held in the setting of low platelets. CONDITION ON DAY OF DISCHARGE: The patient is tolerating diet, ambulating, and voiding freely. Physical exam was performed, which could be found on the day with progress note and consultation with Dr. Jansen. Labs are reviewed and the patient is stable to be discharged to home on oral dexamethason e. This dose was called in for her and confirmed that it was at the pharmacy. Medication changes we re reviewed with the patient and she is to follow up with outpatient Hematology on 11/17/19. The off ice is to call her with a followup appointment. LABS AND STUDIES DONE DURING THIS HOSPITALIZATION: Labs on day of discharge: White blood cell count 7.8, hemoglobin 12.8, hematocrit 38, and platelets 11. BMP: Sodium 138, potassium 4.1, chloride 107, carbon dioxide 27, anion gap 4, BUN 20, creatinine 0.62, and glucose 126. No new imaging was obtained during this hospitalization. CONSULTANTS: Included Hematology/Oncology who followed with this patient. ITEMS TO FOLLOW UP ON STATUS POST DISCHARGE: ITP and low platelets. The patient was discharged on p rednisone, she has close followup. She is counseled to hold apixaban, should be counseled to resume when it is safe to resume in the setting of her anticoagulation. Her stroke risk is fairly low as sh e is rate controlled at this time. TIME SPENT: Thirty-five minutes was spent on the planning of this discharge with over half of that w as spent directly at the bedside of the patient providing direct patient care and coordinating care f or the patient. If there are any questions about the care of this patient during this hospitalizatio n, please do not hesitate to reach out and contact me directly. My cell phone is [phone]. The patient has no further questions. This discharge summary is a distillation of a total of 4 days of h ospitalization, it does not reflect all other medical events that happened, a medical chart can be co nsulted. [id number]/[facility] #: [id number]
[2019-11-13 13:50] VITALS: BP 110/66
== END 2019-11-13 13:59 | disposition home or self-care (01) | DRG 661 ==
LOC: MED 17:41
PROVIDERS: ADMIT Internal Medicine Hematology & Oncology; ATTEND Internal Medicine
DX: D69.59 Other secondary thrombocytopenia (principal); Q87.40 Marfan syndrome, unspecified; D69.3 Immune thrombocytopenic purpura; I71.2 Thoracic aortic aneurysm, without rupture; M41.9 Scoliosis, unspecified; I48.91 Unspecified atrial fibrillation; E53.8 Deficiency of other specified B group vitamins; E03.9 Hypothyroidism, unspecified; G43.909 Migraine, unspecified, not intractable, without status migrainosus; K21.9 Gastro-esophageal reflux disease without esophagitis; E06.3 Autoimmune thyroiditis; M85.80 Other specified disorders of bone density and structure, unspecified site; Z88.2 Allergy status to sulfonamides; Z91.048 Other nonmedicinal substance allergy status; Z86.73 Personal history of transient ischemic attack (TIA), and cerebral infarction without residual deficits; Z79.899 Other long term (current) drug therapy; Z79.01 Long term (current) use of anticoagulants
CPT/HCPCS: 36415; 80053; 85025; 90686; 99232; A9270-GY; J1100; J7512

== ENCOUNTER 2020-01-13 15:05 | Emergency (ER) | payer BC ==
--- NOTE | 2020-01-13 15:20 | ED ---
HPI Cardiac - HPI Summary HPI Summary: Patient is a 64 y/o F w/ Hx of afib, HTN, thyroid disease, dissected carotid artery, known aortic aneurysm, marfan's syndrome and ITP who presents to [facility] via EMS with chief complaints of chest pain and abdominal pain. 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 After getting inside the building, she had sudden onset of midsternal CP. She states that the pain "felt like a heart attack" (no Hx of NC). Patient sat down and had abatement of pain. However, she subsequently had onset of diffuse abdominal pain that she describes as "pulsating". Pain is located at her abdomen only currently, she rates it 4/10 in severity. She also reports experiencing "blotches" in her vision. No back pain, no SOB noted. Patient is typically on Eliqius but is not currently on this medication due to low platelets. She states that it has been two years since her last US of the aortic aneurysm. PSHx of splenectomy noted. No Hx of stomach ulcers noted. Patient recently had regular check-ups with Dr. Ennis and Dr. Henderson, states nothing abnormal. EMS patient received 4 baby ASA, patient was sinus rhythm on monitor. Home medications and allergies are reviewed. - History of Current Complaint Stated Complaint: CHEST PAIN PER EMS Hx Obtained From: Patient Onset/Duration: Still Present Timing: Constant Initial Severity: Severe Current Severity: Moderate Pain Scale Used: 0-10 Numeric Associated Signs and Symptoms: Positive: Chest Pain, Abdominal Pain, Other: - "blotches" in her vision. Negative: Shortness of Breath, Back Pain - Additional Pertinent History Primary Care Physician: SYLVAIN - Allergy/Home Medications Allergies/Adverse Reactions: Allergies Allergy/AdvReac Type Severity Reaction Status Date / Time nickel Allergy Intermediate Rash Verified 01/13/20 16:22 Sulfa (Sulfonamide Allergy Intermediate Rash Verified 01/13/20 16:22 Antibiotics) PMH/Surg Hx/FS Hx/Imm Hx Endocrine/Hematology History: Reports: Hx Blood Disorders - ITP, Hx Thyroid Disease, Other Endocrine/Hematological Disorders - HX LYME DISEASE 2012 Denies: Hx Diabetes Cardiovascular History: Reports: Hx Angina, Hx Atrial Fibrillation, Hx Hypertension, Hx Valvular Heart Disease - MITRAL VALVE PROLAPSE SECONDARY TO MARFAN'S SYNDROME, Other Cardiovascular Problems/Disorders - dilated thoracic aorta and dilated abdominal aorta, per pt. Denies: Hx Coronary Artery Disease, Hx Hypercholesterolemia, Hx Myocardial Infarction, Hx Pacemaker/ICD, Hx Peripheral Vascular Disease Respiratory History: Reports: Other Respiratory Problems/Disorders - BENIGN ARACHNOID CYST MONITORED BY Denies: Hx Asthma, Hx Chronic Obstructive Pulmonary Disease (COPD) GI History: Reports: Hx Hiatal Hernia History: Denies: Hx Chronic Renal Failure, Hx Dialysis, Hx Renal Disease Musculoskeletal History: Reports: Hx Scoliosis, Other Musculoskeletal History - MARFAN'S SYNDROME Denies: Hx Arthritis, Hx Rheumatoid Arthritis, Hx Osteoporosis Sensory History: Reports: Hx Cataracts - hx of cataract surgery, Hx Contacts or Glasses Denies: Hx Hearing Aid Opthamlomology History: Reports: Hx Cataracts - hx of cataract surgery, Hx Contacts or Glasses Neurological History: Reports: Hx Migraine - visual aura's; 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 cardioversion Hx Anesthesia Reactions: Yes - hallucination w/gas - Immunization History Date of Tetanus Vaccine: "I think so" when asked if up to date Date of Influenza Vaccine: 2017 Infectious Disease History: Reports: Hx Shingles - NOT CURRENT - Family History Known Family History: Positive: Cardiac Disease - father of NC, Other - Marfan syndrome - Social History Alcohol Use: Rare Alcohol Amount: glass of wine per month Hx Substance Use: No Substance Use Type: Reports: None Hx Tobacco Use: No Smoking Status (MU): Never Smoked Tobacco Review of Systems Eyes: Other - positive - "blotches" in her vision Positive: Chest Pain Negative: Shortness Of Breath Positive: Abdominal Pain Musculoskeletal: Other - negative - back pain All Other Systems Reviewed And Are Negative: Yes Physical Exam - Summary Physical Exam Summary: Constitutional: Well-developed, Well-nourished, Alert. (-) Distressed Skin: Warm, Dry HENT: Normocephalic; Atraumatic Eyes: Conjunctiva normal Neck: Musculoskeletal ROM normal neck. (-) JVD, (-) Stridor, (-) Tracheal deviation Cardio: Rhythm regular, rate normal, Heart sounds normal; Intact distal pulses; The pedal pulses are 2+ and symmetric. Radial pulses are 2+ and symmetric. (-) Murmur Pulmonary/Chest wall: Effort normal. (-) Respiratory distress, (-) Wheezes, (-) Rales Abd: Soft, mild tenderness, (-) Distension, (-) Guarding, (-) Rebound Musculoskeletal: (-) Edema Lymph: (-) Cervical adenopathy Neuro: Alert, Oriented x3 Psych: Mood and affect Normal Triage Information Reviewed: Yes Vital Signs Reviewed: Yes Procedures - Sedation Patient Received Moderate/Deep Sedation with Procedure: No Diagnostics - Laboratory Result Diagrams: 01/13/20 15:36 01/13/20 15:36 Lab Statement: Any lab studies that have been ordered have been reviewed, and results considered in the medical decision making process. - Radiology CXR Radiology Interpretation Completed By: Radiologist Summary of Radiographic Findings: IMPRESSION: Tortuous descending aorta. No definite pneumonia is noted. THIS REPORT WAS REVIEWED BY ED PHYSICIAN. - CT CTA CHEST/ABDOMEN/PELVIS CT Interpretation Completed By: Radiologist Summary of CT Findings: IMPRESSION: 1. THERE IS A TYPE I DISSECTION OF THE AORTA INVOLVING THE ENTIRE ASCENDING AND DESCENDING. AORTA EXTENDING INTO THE COMMON ILIAC ARTERIES ON BOTH SIDES AND INTO THE RIGHT EXTERNAL. ILIAC ARTERY. THERE IS ALSO EXTENSION INTO THE RIGHT INNOMINATE ARTERY AND INTO THE. VISUALIZED PORTION OF THE RIGHT CAROTID ARTERY. THE INFERIOR MESENTERIC ARTERY IS NOT. OPACIFIED AND ARISES FROM THE FALSE LUMEN. 2. RIGHT MIDDLE LOBE AND LEFT UPPER LOBE PARTIALLY CALCIFIED NODULES LIKELY BENIGN. 3. ENLARGED MEDIASTINAL LYMPH NODE, NEW FROM THE PRIOR STUDY. THIS REPORT WAS REVIEWED BY ED PHYSICIAN. - EKG 1515 Cardiac Rate: NL - rate of 60 BPM EKG Rhythm: Sinus Rhythm Summary of EKG Findings: EKG showed NSR with rate of 60 BPM, slight ST depression in V3-V4. ED physician has reviewed and interpreted this EKG. Disposition - Course Course Of Treatment: Patient is a 64 y/o F w/ Hx of afib, HTN, thyroid disease, dissected carotid artery, known aortic aneurysm, marfan's syndrome and ITP who presents to [facility] via EMS with chief complaints of chest pain and abdominal pain. 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 After getting inside the building, she had sudden onset of midsternal CP. She states that the pain "felt like a heart attack" (no Hx of NC). Patient sat down and had abatement of pain. However, she subsequently had onset of diffuse abdominal pain that she describes as "pulsating". Pain is located at her abdomen only currently, she rates it 4/10 in severity. No back pain, no SOB noted. Patient is typically on Eliqius but is not currently on this medication due to low platelets. She states that it has been two years since her last US of the aortic aneurysm. Bloodwork obtained. Plt count was 10, lactic acid 2.3. Trop was negative. Other abnormal values include total protein 5.9, calcium 8.5 , glucose 113, absolute monos 1.2. Patient was given NS. EKG showed NSR with rate of 60 BPM, slight ST depression in V3-V4. CXR IMPRESSION: Tortuous descending aorta. No definite pneumonia is noted. CTA Chest/Abdomen/Pelvis was done, thoracic aortic dissection was noted. 1658 - Patient's case was discussed with Dr. Pedro, cardiology. 170 - Dr. Pedro in ED to evaluate, patient to be transferred to [facility] in [place], helicopter transfer recommended. 1702 - radiologist was contacted about CTA, radiologist confirms aortic dissection. CTA CHEST/ABDOMEN/PELVIS IMPRESSION: 1. THERE IS A TYPE I DISSECTION OF THE AORTA INVOLVING THE ENTIRE ASCENDING AND DESCENDING. AORTA EXTENDING INTO THE COMMON ILIAC ARTERIES ON BOTH SIDES AND INTO THE RIGHT EXTERNAL. ILIAC ARTERY. THERE IS ALSO EXTENSION INTO THE RIGHT INNOMINATE ARTERY AND INTO THE. VISUALIZED PORTION OF THE RIGHT CAROTID ARTERY. THE INFERIOR MESENTERIC ARTERY IS NOT. OPACIFIED AND ARISES FROM THE FALSE LUMEN. 2. RIGHT MIDDLE LOBE AND LEFT UPPER LOBE PARTIALLY CALCIFIED NODULES LIKELY BENIGN. 3. ENLARGED MEDIASTINAL LYMPH NODE, NEW FROM THE PRIOR STUDY. 1705 - Dr. Pedro relays that he gave report to Dr. Tima Lui, cardiothoracic surgery, at [facility]. Dr. Lui accepts the patient for transfer. Patient will be transferred ED to ED. Platelets and packed RBCs are ordered for the patient. Patient received fentanyl 25 mcg x2. Patient to be airlifted via helicopter to [facility]. - Diagnoses Provider Diagnoses: Acute thoracic aortic dissection, Thrombocytopenia - Physician Notifications Discussed Care Of Patient With: Viktor Pedro Time Discussed With Above Provider: 16:58 Instructed by Provider To: Other - 165 - Patient's case was discussed with Dr. Pedro, cardiology. 1699 - Dr. Pedro in ED to evaluate, patient to be transferred to [facility] in [place], helicopter transfer recommended. 170 - radiologist was contacted about CTA, radiologist confirms aortic dissection. 1704 - Dr. Pedro relays that he gave report to Dr. Tima Lui, cardiothoracic surgery, at [facility]. Dr. Lui accepts the patient for transfer. Patient will be transferred ED to ED. Reason For Transfer: Specialty or service not available at [facility] [place]. - Critical Care Time Critical Care Time: 30-74 min Discharge ED - Sign-Out/Discharge Documenting (check all that apply): Patient Departure - transfer - Discharge Plan Condition: Critical Disposition: TRANS HIGHER LVL OF CARE FAC Referrals: Amita Ennis MD [Primary Care Provider] - - Billing Disposition and Condition Condition: CRITICAL Disposition: Trans Higher Lvl of Care Fac - Attestation Statements Document Initiated by Scribe: Yes Documenting Scribe: ADITYA BRYANT Provider For Whom Scribe is Documenting (Include Credential): ELVIN SINCLAIR DO Scribe Attestation: IADITYA scribed for ELVIN SINCLAIR DO on 01/14/20 at 1307. Scribe Documentation Reviewed: Yes Provider Attestation: The documentation as recorded by the ADITYA fajardo accurately reflects the service I personally performed and the decisions made by me, ELVIN SINCLAIR DO Status of Scribe Document: Viewed
[2020-01-13] MEDS ORDERED: NS 0.9% 1000 ML** 1,000 ML IV ONE ×2 (15:22→17:31)
[2020-01-13 16:05] LABS: ABS Basophils 0.2 10^3/ul (0-0.2); ABS Eosinophils 0.2 10^3/ul (0-0.6); ABS Lymphocytes 1.3 10^3/ul (1.0-4.8); ABS Monocytes 1.2 10^3/ul (0-0.8); ABS Neutrophils 7.6 10^3/ul (1.5-7.7); Eosinophil % 2.2 %; Hematocrit 38 % (35-47); Mean Corpuscular HGB Conc 32 g/dL (31-36); Mean Corpuscular Hemoglobin 28 pg (27-31); Mean Corpuscular Volume 87 fL (80-97); Nucleated Red Blood Cells % 0.2; Red Blood Count 4.32 10^6 /uL (3.70-4.87); Red Cell Distribution Width 15 % (10-15); Troponin I 0.01 ng/mL (<0.03); White Blood Count 10.5 10^3/uL (3.5-10.8)
--- OUTSIDE RECORDS SUMMARY | 2020-01-13 16:14 | XMS REPORT | Continuity of Care Document ---
:1955 External Reference #:[id number] Author Name Amita Ennis M.D. (transmitted by agent of provider Michelle Rivera ) Address [address] [address] [facility], [place] [address] Care Team Providers Name Role Phone Other Physician Practices Care Team Information [employer] Unavailable Amita Ennis MD - Internal Care Team Information [facility] [employer] Medicine Channing Coyle M.D. - Hematology & Care Team Information [employer] [phone] Oncology Arlen Henderson MD - Cardiovascular Care Team Information [employer] [phone] Disease Cem Kc M.D. - Neurology Care Team Information [employer]izer Beto Samaniego MD - Surgery Care Team Information [employer] [phone] Problems Active Problems Provider Date Marfan's syndrome Fern Jean M.D., [facility] Onset: 03/17/2011 Hypothyroidism Fern Jean M.D., [facility] Onset: 03/17/2011 Mitral valve disorder Meir Bone M.D., [facility] Onset: 09/13/2014 Note: mitral valave insufficiency Osteoporosis Zulay Kraus M.D. Onset: 11/07/2014 Scoliosis deformity of spine Zulay Kraus M.D. Onset: 11/07/2014 Tendinosis Zulay Kraus M.D. Onset: 02/19/2015 Note: rotatot cuff with AC joint OA Thoracic aortic ectasia Meir Bone M.D., [facility] Onset: 10/10/2015 Arachnoid cyst Zulay Kraus M.D. Onset: 10/23/2015 Note: L anterior fossa Disturbance in sleep behavior Yudi Louie MD Onset: 12/18/2015 Paroxysmal atrial fibrillation Meir Bone M.D., [facility] Onset: 2015 Headache Cem Kc M.D. Onset: [...] For Denies Drug Use Smoking Status Reviewed: 01/13/20 Patient has never smoked Exercise Type/Frequency Does not exercise Allergies, Adverse Reactions, Alerts Active Allergies Reaction Severity Comments Date Sulfa Urticaria Moderate 01/23/2010 Nickel 09/09/2016 Medications Active Medications SIG Qnty Indications Ordering Date Provider [facility] B-12 Every Morning Unknown 05/31/2019 500mcg Tablets Cyclobenzaprine HCL 1 tabs every 8 60tabs R51 Amita 05/24/2019 5mg hours as needed Brittney Ennis Tablets Magnesium Oxide 500MG 1 tab by mouth Lety Reyes, 04/18/2019 twice a day [facility] Metoprolol Tartrate take 1 tablet 180tabs I48.0 Arlen Henderson, 04/11/2019 25mg oral twice a M.D. Tablets day. Amiodarone HCL 1 tab by mouth 90tabs I48.0 Arlen Henderson, 04/11/2019 200mg every day with M.D. Tablets meal Eliquis 1 by mouth 60tabs Arlen Henderson, 04/07/2019 5mg Tablets twice a day- M.D. not taking due to platelet count- 01/12/2020 Automatic Blood 1 adult large 1units Maria C Mcfadden, 11/11/2018 Pressure Monitor cuff and unit N.P. Kit for upper arm utd twice a day . please log results . call providor when systolic reading is below 100 or above 1 Levothyroxine Sodium take 1 tablet 90tabs E03.9 Amita 10/20/2017 100mcg by mouth once Cotton, M.DJan Tablets daily Calcium 600 + D 1 tab bid Zulay Kraus, 02/05/2016 M.D. [id number] Tablets Potassium Chloride ER 2 tabs by mouth 360caps Arlen Henderson, 10/23/2015 10Meq twice daily M.D. Capsules ER Selenium 1 tab po qd Unknown 200mcg Tablets History Medications Dexamethasone Every Day 20tabs Unknown 11/13/2019 - 4mg Tablets 01/11/2020 Tylenol 8 Hour 1 by mouth six 90tabs Amita Raymon, 08/05/2019 - 650mg times a day as M.D. 10/06/2019 Tablets ER needed for pain Oxycodone-Acetaminophen 1 tabs by mouth 12tabs Amita Raymon, 2018 - every 4 hours as M.D. 10/06/2019 5-325mg Tablets needed for pain Medications Administered in Office Medication SIG Qnty Indications Ordering Provider Date Shingrix pharmacy administered Unknown 01/11/2019 Injection Inj, Regadenoson, 0.1 MG Edson Smith M.D. 07/22/2013 Injection Technetium TC 99M TetrofEdson oliva M.D. 07/22/2013 Per Unit Dose Up To 40 Millicuries Injection Immunizations CPT Code Status Date Vaccine Lot # [id number] Given 10/09/2018 Influenza Virus Vaccine, Quadrivalent, Split, Preservative Free 31223 Given 07/19/2018 Zoster (Shingles) Vaccine (HZV), Recombinant, Subunit, Adjuvanted 37027 Given 07/19/2018 Zoster (Shingles) Vaccine (HZV), Recombinant, Subunit, Adjuvanted 28806 Given 10/20/2017 Influenza Virus Vaccine, Quadrivalent, Split, [id number] Preservative Free 50733 Given 11/26/2016 Influ Virus Vaccine, Quadrivalent, Split Virus, [place] [address] Given 2015 Influenza Virus Vaccine, Quadrivalent, Split, Preservative Free 05460 Given 10/17/2014 Tdap - Tetanus/Diptheria/Acellular Pertussis [id number] 38519 Given 10/17/2014 Flu Vaccine Split Virus Preservative Free For [id number] Indiv 3Yr Older 79101 Given 09/05/2013 Flu Vaccine Split Virus Preservative Free For [id number] Indiv 3Yr Older [id number] Given 09/01/2012 Fluzone Vaccine [id number] 82466 Given 01/30/2010 Influenza Virus Vaccine, Pandemic Formulation 94024 Given 01/30/2010 Administration Swine Flu Shot 84257 Given 01/05/2009 Influenza Virus 3Yrs & Over 40669 Given 11/24/2006 Influenza Virus 3Yrs & Over 71132 Given 11/24/2006 Influenza Virus 3Yrs & Over 94909 Given 2003 Td Toxoids Adsorbed For Use 7Yrs Or Older For Intramuscular Use Vital Signs Date Vital Result Comment 01/13/2020 11:15am Height 70 inches 5'10" Weight 160.00 lb Heart Rate 60 /min BP Systolic 115 mmHg BP Diastolic 66 mmHg O2 % BldC Oximetry 95 % BMI (Body Mass Index) 23.0 kg/m2 01/12/2020 3:46pm Height 70 inches 5'10" Weight 160.00 lb with out shoes Heart Rate 56 /min BP Systolic Sitting 120 mmHg Rue lg cuff BP Diastolic Sitting 80 mmHg Rue lg cuff BP Systolic Standing 118 mmHg Rue lg cuff BP Diastolic Standing 70 mmHg Rue lg cuff Respiratory Rate 16 /min BMI (Body Mass Index) 23.0 kg/m2 Ejection Fraction 50-55% date 04/04/19 ECHO Results Test Acquired Date Facility Test Result H/L Range Note CBC Auto 01/10/2020 [facility] White Blood 8.5 10^3/uL Normal 3.5-10.[address] [place] [address] [phone] Red Blood Count 4.47 10^6/uL Normal 3.70-4.87 Hemoglobin 12.4 g/dL Normal 12.0-16.0 Hematocrit 39 % Normal 35-47 Mean Corpuscular Volume 87 fL Normal 80-97 Mean Corpuscular Hemoglobin 28 pg Normal 27-31 Mean Corpuscular HGB Conc 32 g/dL Normal 31-36 Red Cell Distribution Width 15 % Normal 10-15 Platelet Count 17 10^3/uL Low 150-450 1 Mean Platelet Volume 11.2 fL High 7.4-10.4 Abs Neutrophils 5.3 10^3/uL Normal 1.5-7.7 Abs Lymphocytes 1.3 10^3/uL Normal 1.0-4.8 Abs Monocytes 1.4 10^3/uL High 0-0.8 Abs Eosinophils 0.3 10^3/uL Normal 0-0.6 Abs Basophils 0.2 10^3/uL Normal 0-0.2 Abs Nucleated RBC 0.0 10^3/uL Granulocyte % 62.8 % Lymphocyte % 15.3 % Monocyte % 16.7 % Eosinophil % 3.3 % Basophil % 1.9 % Nucleated Red Blood Cells % 0.1 CBC Auto 01/03/2020 [facility] White Blood 6.9 10^3/uL Normal 3.5-10.[address] [place] [address] [phone] Red Blood Count 4.49 10^6/uL Normal 3.70-4.87 Hemoglobin 12.8 g/dL Normal 12.0-16.0 Hematocrit 39 % Normal 35-47 Mean Corpuscular Volume 88 fL Normal 80-97 Mean Corpuscular Hemoglobin 28 pg Normal 27-31 Mean Corpuscular HGB Conc 33 g/dL Normal 31-36 Red Cell Distribution Width 15 % Normal 10-15 Abs Neutrophils 4.1 10^3/uL Normal 1.5-7.7 Abs Lymphocytes 1.2 10^3/uL Normal 1.0-4.8 Abs Monocytes 1.1 10^3/uL High 0-0.8 Abs Eosinophils 0.2 10^3/uL Normal 0-0.6 Abs Basophils 0.2 10^3/uL Normal 0-0.2 Abs Nucleated RBC 0.0 10^3/uL Granulocyte % 59.8 % Lymphocyte % 17.2 % Monocyte % 16.4 % Eosinophil % 3.3 % Basophil % 3.3 % Nucleated Red Blood Cells % 0.1 Platelet Count 37 10^3/uL Low 150-450 2 Mean Platelet Volume 12.4 fL High 7.4-10.4 Laboratory test 01/03/2020 [facility] Pathologist (SEE NOTE) [address] [place] [address] [phone] CBC Auto Diff 12/27/2019 [facility] White Blood 9.4 Normal 3.5 -[address] Count 10^3/uL 0.8 [place] [address] [phone] Red Blood Count 4.42 10^6/uL Normal 3.70-4.87 Hemoglobin 12.9 g/dL Normal 12.0-16.0 Hematocrit 39 % Normal 35-47 Mean Corpuscular Volume 88 fL Normal 80-97 Mean Corpuscular Hemoglobin 29 pg Normal 27-31 Mean Corpuscular HGB Conc 33 g/dL Normal 31-36 Red Cell Distribution Width 16 % High 10-15 Platelet Count 208 10^3/uL Normal 150-450 Mean Platelet Volume 11.3 fL High 7.4-10.4 Abs Neutrophils 6.0 10^3/uL Normal 1.5-7.7 Abs Lymphocytes 1.8 10^3/uL Normal 1.0-4.8 Abs Monocytes 1.2 10^3/uL High 0-0.8 Abs Eosinophils 0.2 10^3/uL Normal 0-0.6 Abs Basophils 0.2 10^3/uL Normal 0-0.2 Abs Nucleated RBC 0.0 10^3/uL Granulocyte % 64.0 % Lymphocyte % 19.3 % Monocyte % 12.3 % Eosinophil % 2.0 % Basophil % 2.4 % Nucleated Red Blood Cells % 0.2 Large Platelets Present CBC Auto 12/20/2019 [facility] White Blood 8.7 10^3/uL Normal 3.5-10.[address] [place] [address] [phone] Red Blood Count 4.52 10^6/uL Normal 3.70-4.87 Hemoglobin 12.9 g/dL Normal 12.0-16.0 Hematocrit 40 % Normal 35-47 Mean Corpuscular Volume 89 fL Normal 80-97 Mean Corpuscular Hemoglobin 29 pg Normal 27-31 Mean Corpuscular HGB Conc 32 g/dL Normal 31-36 Red Cell Distribution Width 17 % High 10-15 Abs Neutrophils 5.5 10^3/uL Normal 1.5-7.7 Abs Lymphocytes 1.6 10^3/uL Normal 1.0-4.8 Abs Monocytes 1.3 10^3/uL High 0-0.8 Abs Eosinophils 0.2 10^3/uL Normal 0-0.6 Abs Basophils 0.1 10^3/uL Normal 0-0.2 Abs Nucleated RBC 0.0 10^3/uL Granulocyte % 63.0 % Lymphocyte % 18.1 % Monocyte % 14.9 % Eosinophil % 2.3 % Basophil % 1.7 % Nucleated Red Blood Cells % 0.2 Platelet Count 46 10^3/uL Low 150-450 4 CBC Auto 12/15/2019 [facility] White Blood 9.2 10^3/uL Normal 3.5-10.[address] [place] [address] [phone] Red Blood Count 4.32 10^6/uL Normal 3.70-4.87 Hemoglobin 12.6 g/dL Normal 12.0-16.0 Hematocrit 38 % Normal 35-47 Mean Corpuscular Volume 88 fL Normal 80-97 Mean Corpuscular Hemoglobin 29 pg Normal 27-31 Mean Corpuscular HGB Conc 33 g/dL Normal 31-36 Red Cell Distribution Width 17 % High 10-15 Platelet Count 19 10^3/uL Low 150-450 5 Mean Platelet Volume 10.8 fL High 7.4-10.4 Abs Neutrophils 6.0 10^3/uL Normal 1.5-7.7 Abs Lymphocytes 1.4 10^3/uL Normal 1.0-4.8 Abs Monocytes 1.3 10^3/uL High 0-0.8 Abs Eosinophils 0.3 10^3/uL Normal 0-0.6 Abs Basophils 0.2 10^3/uL Normal 0-0.2 Abs Nucleated RBC 0.0 10^3/uL Granulocyte % 65.7 % Lymphocyte % 15.1 % Monocyte % 14.6 % Eosinophil % 2.7 % Basophil % 1.9 % Nucleated Red Blood Cells % 0.1 Basic Metabolic 12/15/2019 [facility] Sodium 137 mmol/L Normal 135-[address] [place] [address] [phone] Potassium 3.8 mmol/L Normal 3.5-5.0 Chloride 104 mmol/L Normal 101-111 Co2 Carbon Dioxide 29 mmol/L Normal 22-32 Anion Gap 4 mmol/L Normal 2-11 Glucose 92 mg/dL Normal 70-100 Blood Urea Nitrogen 16 mg/dL Normal 6-24 Creatinine 0.80 mg/dL Normal 0.51-0.95 BUN/Creatinine Ratio 20.0 Normal 8-20 Calcium 8.4 mg/dL Low 8.6-10.3 Egfr Non- 72.4 >60 Egfr 87.7 >60 6 Basic Metabolic 11/28/2019 [facility] Sodium 138 mmol/L Normal 135-[address] [place] [address] [phone] Potassium 4.1 mmol/L Normal 3.5-5.0 Chloride 103 mmol/L Normal 101-111 Co2 Carbon Dioxide 28 mmol/L Normal 22-32 Anion Gap 7 mmol/L Normal 2-11 Glucose 107 mg/dL High 70-100 Blood Urea Nitrogen 15 mg/dL Normal 6-24 Creatinine 0.71 mg/dL Normal 0.51-0.95 BUN/Creatinine Ratio 21.1 High 8-20 Calcium 8.8 mg/dL Normal 8.6-10.3 Egfr Non- 83.1 >60 Egfr 100.6 >60 7 Laboratory test 11/28/2019 [facility] Magnesium 2.0 mg/dL Normal 1.9-2.[address] [place] [address] [phone] Thyroid Panel 11/28/2019 [facility] Free T4 (Free 1.13 High 0.61-1.[address] Thyroxine) ng/[place] [address] [phone] Thyroxine 7.68 g/dL Normal 6.09-12.23 TSH (Thyroid Stim Horm) 6.00 mcIU/mL High 0.34-5.60 Liver Function 11/28/2019 [facility] Total Protein 5.8 g/dL Low 6.4-8.9 Panel [address] [place] [address] [phone] Albumin 3.5 g/dL Normal 3.2-5.2 Globulin 2.3 g/dL Normal 2-4 Albumin/Globulin Ratio 1.5 Normal 1-3 Total Bilirubin 0.60 mg/dL Normal 0.2-1.0 Direct Bilirubin 0.10 mg/dL Normal 0.03-0.18 Indirect Bilirubin 0.5 mg/dL Normal 0.3-1.0 Alkaline Phosphatase 54 U/L Normal 34-104 Alt 8 U/L Normal 7-52 Ast 12 U/L Low 13-39 CBC Auto 11/25/2019 [facility] White Blood 12.0 10^3/uL High 3.5-10.[address] [place] [address] [phone] Red Blood Count 4.29 10^6/uL Normal 3.70-4.87 Hemoglobin 12.4 g/dL Normal 12.0-16.0 Hematocrit 38 % Normal 35-47 Mean Corpuscular Volume 88 fL Normal 80-97 Mean Corpuscular Hemoglobin 29 pg Normal 27-31 Mean Corpuscular HGB Conc 33 g/dL Normal 31-36 Red Cell Distribution Width 18 % High 10-15 Platelet Count 145 10^3/uL Low 150-450 Mean Platelet Volume 10.7 fL High 7.4-10.4 Abs Neutrophils 8.5 10^3/uL High 1.5-7.7 Abs Lymphocytes 1.5 10^3/uL Normal 1.0-4.8 Abs Monocytes 1.7 10^3/uL High 0-0.8 Abs Eosinophils 0.2 10^3/uL Normal 0-0.6 Abs Basophils 0.1 10^3/uL Normal 0-0.2 Abs Nucleated RBC 0.0 10^3/uL Granulocyte % 70.6 % Lymphocyte % 12.2 % Monocyte % 14.4 % Eosinophil % 1.6 % Basophil % 1.2 % Nucleated Red Blood Cells % 0.0 Manual 11/25/2019 [facility] Immature 4.0 % Normal 0-[address] [place] [address] [phone] Neutrophil % 67.0 % Lymphocytes % 8.0 % Monocytes % 19.0 % Eosinophils % 2.0 % Metamyelocytes % 2.0 % Normal 0-2 Myelocytes % 2.0 % High 0-1 RBC Morphology Normal Normal CBC Auto 11/18/2019 [facility] White Blood 17.7 10^3/uL High 3.5-10.[address] [place] [address] [phone] Red Blood Count 4.92 10^6/uL High 3.70-4.87 Hemoglobin 13.8 g/dL Normal 12.0-16.0 Hematocrit 43 % Normal 35-47 Mean Corpuscular Volume 87 fL Normal 80-97 Mean Corpuscular Hemoglobin 28 pg Normal 27-31 Mean Corpuscular HGB Conc 32 g/dL Normal 31-36 Red Cell Distribution Width 17 % High 10-15 Abs Neutrophils 13.4 10^3/uL High 1.5-7.7 Platelet Count 271 10^3/uL Normal 150-450 Mean Platelet Volume 12.3 fL High 7.4-10.4 Giant Platelets Present Abs Lymphocytes 1.6 10^3/uL Normal 1.0-4.8 Abs Monocytes 2.5 10^3/uL High 0-0.8 Abs Eosinophils 0.1 10^3/uL Normal 0-0.6 Abs Basophils 0.1 10^3/uL Normal 0-0.2 Abs Nucleated RBC 0.0 10^3/uL Granulocyte % 75.8 % Lymphocyte % 9.2 % Monocyte % 14.3 % Eosinophil % 0.3 % Basophil % 0.4 % Nucleated Red Blood Cells % 0.2 CBC Auto 11/15/2019 [facility] White Blood 9.0 10^3/uL Normal 3.5-10.[address] [place] [address] [phone] Red Blood Count 4.07 10^6/uL Normal 3.70-4.87 Hemoglobin 11.5 g/dL Low 12.0-16.0 Hematocrit 35 % Normal 35-47 Mean Corpuscular Volume 86 fL Normal 80-97 Mean Corpuscular Hemoglobin 28 pg Normal 27-31 Mean Corpuscular HGB Conc 33 g/dL Normal 31-36 Red Cell Distribution Width 16 % High 10-15 Abs Neutrophils 6.7 10^3/uL Normal 1.5-7.7 Platelet Count 156 10^3/uL Normal 150-450 8 Abs Lymphocytes 0.8 10^3/uL Low 1.0-4.8 Abs Monocytes 1.4 10^3/uL High 0-0.8 Abs Eosinophils 0.0 10^3/uL Normal 0-0.6 Abs Basophils 0.0 10^3/uL Normal 0-0.2 Abs Nucleated RBC 0.0 10^3/uL Granulocyte % 74.6 % Lymphocyte % 9.2 % Monocyte % 16.1 % Eosinophil % 0.0 % Basophil % 0.1 % Nucleated Red Blood Cells % 0.2 Comp Metabolic 11/10/2019 [facility] Sodium 135 mmol/L Normal 135-[address] [place] [address] [phone] Potassium 4.5 mmol/L Normal 3.5-5.0 Chloride 103 mmol/L Normal 101-111 Co2 Carbon Dioxide 28 mmol/L Normal 22-32 Anion Gap 4 mmol/L Normal 2-11 Calcium 8.1 mg/dL Low 8.6-10.3 Albumin 3.2 g/dL Normal 3.2-5.2 Total Bilirubin 0.80 mg/dL Normal 0.2-1.0 Glucose 96 mg/dL Normal 70-100 Blood Urea Nitrogen 13 mg/dL Normal 6-24 Creatinine 0.77 mg/dL Normal 0.51-0.95 BUN/Creatinine Ratio 16.9 Normal 8-20 Total Protein 5.5 g/dL Low 6.4-8.9 Globulin 2.3 g/dL Normal 2-4 Albumin/Globulin Ratio 1.4 Normal 1-3 Alkaline Phosphatase 46 U/L Normal 34-104 Alt 10 U/L Normal 7-52 Ast 16 U/L Normal 13-39 Egfr Non- 75.7 >60 Egfr 91.6 >60 9 CBC Auto 11/10/2019 [facility] White Blood 8.4 10^3/uL Normal 3.5-10.[address] [place] [address] [phone] Red Blood Count 4.79 10^6/uL Normal 3.70-4.87 Hemoglobin 13.7 g/dL Normal 12.0-16.0 Hematocrit 42 % Normal 35-47 Mean Corpuscular Volume 87 fL Normal 80-97 Mean Corpuscular Hemoglobin 29 pg Normal 27-31 Mean Corpuscular HGB Conc 33 g/dL Normal 31-36 Red Cell Distribution Width 16 % High 10-15 Platelet Count 6 10^3/uL Critical low 150-450 10 Mean Platelet Volume 9.4 fL Normal 7.4-10.4 Abs Neutrophils 5.5 10^3/uL Normal 1.5-7.7 Abs Lymphocytes 1.3 10^3/uL Normal 1.0-4.8 Abs Monocytes 1.3 10^3/uL High 0-0.8 Abs Eosinophils 0.2 10^3/uL Normal 0-0.6 Abs Basophils 0.1 10^3/uL Normal 0-0.2 Abs Nucleated RBC 0.1 10^3/uL Granulocyte % 65.4 % Lymphocyte % 15.6 % Monocyte % 15.6 % Eosinophil % 2.3 % Basophil % 1.1 % Nucleated Red Blood Cells % 0.7 Laboratory 11/10/2019 [facility] Partial 27.7 Normal 26.0- 38.[address] [place] [address] Time PTT [phone] Inr/Protime 11/10/2019 [facility] Inr 1.12 High 0.82-1.[address] [place] [address] [phone] CBC Auto Diff 11/09/2019 [facility] White Blood 7.5 10^3/uL Normal 3.5-10.[address] [place] [address] [phone] Red Blood Count 4.75 10^6/uL Normal 3.70-4.87 Hemoglobin 13.6 g/dL Normal 12.0-16.0 Hematocrit 41 % Normal 35-47 Mean Corpuscular Volume 87 fL Normal 80-97 Mean Corpuscular Hemoglobin 29 pg Normal 27-31 Mean Corpuscular HGB Conc 33 g/dL Normal 31-36 Red Cell Distribution Width 16 % High 10-15 Abs Neutrophils 4.9 10^3/uL Normal 1.5-7.7 Abs Lymphocytes 1.4 10^3/uL Normal 1.0-4.8 Abs Monocytes 1.2 10^3/uL High 0-0.8 Abs Eosinophils 0.1 10^3/uL Normal 0-0.6 Abs Basophils 0.1 10^3/uL Normal 0-0.2 Abs Nucleated RBC 0.0 10^3/uL Granulocyte % 63.4 % Lymphocyte % 17.9 % Monocyte % 15.7 % Eosinophil % 1.8 % Basophil % 1.2 % Nucleated Red Blood Cells % 0.5 Platelet Count 5 10^3/uL Critical low 150-450 Mean Platelet Volume 10.8 fL High 7.4-10.4 Comp Metabolic 11/09/2019 [facility] Sodium 136 mmol/L Normal 135-[address] [place] [address] [phone] Potassium 4.4 mmol/L Normal 3.5-5.0 Chloride 103 mmol/L Normal 101-111 Co2 Carbon Dioxide 28 mmol/L Normal 22-32 Anion Gap 5 mmol/L Normal 2-11 Glucose 102 mg/dL High 70-100 Blood Urea Nitrogen 13 mg/dL Normal 6-24 Creatinine 0.75 mg/dL Normal 0.51-0.95 BUN/Creatinine Ratio 17.3 Normal 8-20 Calcium 8.1 mg/dL Low 8.6-10.3 Total Protein 5.6 g/dL Low 6.4-8.9 Albumin 3.3 g/dL Normal 3.2-5.2 Globulin 2.3 g/dL Normal 2-4 Albumin/Globulin Ratio 1.4 Normal 1-3 Total Bilirubin 0.80 mg/dL Normal 0.2-1.0 Alkaline Phosphatase 50 U/L Normal 34-104 Alt 12 U/L Normal 7-52 Ast 16 U/L Normal 13-39 Egfr Non- 78.0 >60 Egfr 94.4 >60 12 Laboratory test 11/09/2019 [facility] Pathologist (SEE NOTE) [address] [place] [address] [phone] CBC Auto Diff 09/16/2019 [facility] White Blood 8.3 Normal 3.5 - [address] Count 10^3/uL 10.8 [place] [address] [phone] Red Blood Count 5.04 10^6/uL High 3.70-4.87 [...] Blood Cells % 0.0 CBC Auto 08/09/2019 [facility] White Blood 8.4 10^3/uL Normal 3.5-10.[address] [place] [address] [phone] Red Blood Count 4.95 10^6/uL High 3.70-4.87 [...] Blood Cells % 0.0 CBC Auto 08/02/2019 [facility] White Blood 8.1 10^3/uL Normal 3.5-10.[address] [place] [address] [phone] Red Blood Count 5.09 10^6/uL High 3.70-4.87 Hemoglobin 14.0 g/dL Normal 12.0-16.0 Hematocrit 43 % Normal 35-47 Mean Corpuscular Volume 84 fL Normal 80-97 Mean Corpuscular Hemoglobin 28 pg Normal 27-31 Mean Corpuscular HGB Conc 33 g/dL Normal 31-36 Red Cell Distribution Width 15 % Normal 10-15 Platelet Count 84 10^3/uL Low 150-450 14 Mean Platelet Volume [...] Blood Cells % 0.1 CBC Auto 07/25/2019 [facility] White Blood 7.3 10^3/uL Normal 3.5-10.[address] [place] [address] [phone] Red Blood Count 4.93 10^6/uL High 3.70-4.87 Hemoglobin 13.5 g/dL Normal 12.0-16.0 Hematocrit 41 % Normal 35-47 Mean Corpuscular Volume 84 fL Normal 80-97 Mean Corpuscular Hemoglobin 27 pg Normal 27-31 Mean Corpuscular HGB Conc 33 g/dL Normal 31-36 Red Cell Distribution Width 15 % Normal 10-15 Platelet Count 88 10^3/uL Low 150-450 15 Mean Platelet Volume 9.2 fL Normal 7.4-10.4 [...] Blood Cells % 0.1 Lipid Profile 07/19/2019 [facility] Triglycerides 160 mg/dL 16 (Trig/Chol/HDL) [address] [place] [address] [phone] Cholesterol 199 mg/dL 17 HDL Cholesterol 44.7 mg/dL 18 LDL Cholesterol 122 mg/dL 19 Laboratory test 07/19/2019 [facility] Vitamin D 44.4 Normal 20 -50 [address] Total 25(Oh) ng/mL [place], [place] [address] [phone] CBC Auto Diff 07/18/2019 [facility] White Blood 8.1 Normal 3.5 -10.[address] Count 10^3/[place] [address] [phone] Red Blood Count 4.93 10^6/uL High 3.70-4.87 Hemoglobin 13.7 g/dL Normal 12.0-16.0 Hematocrit 41 % Normal 35-47 Mean Corpuscular Volume 84 fL Normal 80-97 Mean Corpuscular Hemoglobin 28 pg Normal 27-31 Mean Corpuscular HGB Conc 33 g/dL Normal 31-36 Red Cell Distribution Width 15 % Normal 10-15 Platelet Count 77 10^3/uL Low 150-450 21 Mean Platelet Volume 9.3 fL Normal 7.4-10.4 [...] 1 Consistent with Previous Results Reported on 01/03/20 2 Platelet count confirmed by estimate 3 Marked thrombocytopenia. Reviewed by Gisela Ortega MD 4 Platelet count confirmed by estimate 5 Consistent with Previous Results Reported on 11/15/19 6 Because ethnic data is not always [...] 5 Kidney failure <15 (or dialysis) 7 Because ethnic data is not always [...] 5 Kidney failure <15 (or dialysis) 8 Platelet count confirmed by estimate 9 Because ethnic data is not always readily [...] 15-29 5 Kidney failure <15 (or dialysis) 10 Platelet count confirmed by estimate 11 Standard intensity warfarin therapeutic range: 2.0-3.0 High intensity warfarin therapeutic range: 2.5-3.5 12 Because ethnic data is not always [...] 5 Kidney failure <15 (or dialysis) 13 Severe thrombocytopenia noted. No evidence of hemolysis or blasts are identified. Additional studies as clinically warranted. Reviewed by Dr. South 14 Consistent with Previous Results Reported on 07/25/19 15 Consistent with Previous Results Reported on 07/11/19 16 Desirable: <150 Borderline High: 150-199 High: 200-499 Very High: >500 17 Desirable: <200 Borderline High: 200-239 High: >239 18 Low: <40 Desirable: 40-60 High: >60 19 Desirable: <100 Near Optimal: 100-129 Borderline High: 130-159 High: 160-189 Very High: >189 20 Total 25-Hydroxyvitamin D2 and D3 (25-OH-VitD) <10 ng/mL (severe deficiency) 10-19 ng/mL (mild to moderate deficiency) 20-50 ng/mL (optimum levels) 51-80 ng/mL (increased risk of hypercalciuria) >80 ng/mL (toxicity possible) 21 Consistent with Previous Results Reported on 07/11/19 Procedures Date Code Description Status 01/12/2020 04281 EKG Tracing & Interpretation Completed 10/07/2019 10149 EKG Tracing & Interpretation Completed 08/03/2019 08276 Laparoscopy, Surgical, Splenectomy Completed 08/03/2019 12591 Laparoscopy, Surgical, Splenectomy Completed 07/20/2019 [id number] Mammogram Completed 03/08/2018 [id number] Mammogram Completed 11/18/2017 [id number] Bone Mineral Density Test Completed 02/17/2017 [id number] Mammogram Completed 02/15/2016 [id number] Mammogram Completed 10/31/2014 [id number] Bone Mineral Density Test Completed 10/31/2014 [id number] Mammogram Completed 11/07/2013 [id number] Mammogram Completed 09/09/2012 [id number] Bone Mineral Density Test Completed 09/09/2012 [id number] Mammogram Completed 07/01/2011 [id number] Colonoscopy Completed 04/15/2011 [id number] Mammogram Completed 02/07/2010 [id number] Mammogram Completed 02/07/2010 [id number] Bone Mineral Density Test Completed Medical Devices Description No Information Available Encounters Type Date Location Provider Dx Diagnosis Office Visit 11/13/2019 [facility] Liat Parsons MD D69.49 Other primary 10:26[facility] thrombocytopenia Hospitalists I48.91 Unspecified atrial fibrillation E53.8 Deficiency of other specified B group vitamins E03.9 Hypothyroidism, unspecified Q87.40 Marfan's syndrome, unspecified Office Visit 11/09/2019 2:00p [facility] Internal Fern Jean, 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 thrombocytopenic Ccmob purpura Office Visit 07/15/2019 [facility] Internal Amita M54.2 Cervicalgia 10:40a Ninfa Ennis M.D. Ccmob E78.5 Hyperlipidemia, unspecified M81.0 Age-related osteoporosis w/o current pathological fracture Z12.31 Encntr screen mammogram for malignant neoplasm of breast M22.00 Recurrent dislocation of patella, unspecified knee Assessments Date Code Description Provider 01/13/2020 Z00.00 Encounter for general adult medical Amita Ennis M.D. 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 01/13/2020 M85.851 Other specified disorders of bone density Amita Ennis M.D. and structure, right thigh 01/12/2020 I48.0 Paroxysmal atrial fibrillation Arlen Henderson M.D. 01/12/2020 Q87.40 Marfan's syndrome, unspecified Arlen Henderson M.D. 01/12/2020 Z51.81 Encounter for therapeutic drug level Arlen Henderson M.D. monitoring 01/12/2020 D69.49 Other primary thrombocytopenia Arlen Henderson M.D. 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 10/07/2019 I48.0 Paroxysmal atrial fibrillation Arlen Henderson M.D. 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 10/07/2019 I71.2 Thoracic aortic aneurysm, without rupture Arlen Henderson M.D. 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 10/07/2019 R05 Cough Arlen Henderson M.D. 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 07/15/2019 E78.5 Hyperlipidemia, unspecified Amita Ennis M.D. 07/15/2019 M81.0 Age-related osteoporosis without current Amita Ennis M.D. pathological fracture 07/15/2019 Z12.31 Encounter for screening mammogram for Amita Ennis M.D. 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 unspecified knee Plan of Treatment Future Appointment(s):01/14/2021 11:00 am - Amita Ennis M.D. at [facility] Internal Medicine - [facility]01/13/2020 - Amita Ennis M.D.Z00.00 Encounter for general adult medical examination without abnormal findingsComments:VACCINES :1. Flu shot every year in the fall.2. Tetanus: last one done in 2013. Booster every 10 years3. Pneumonia vaccines:For patients who have no spleen -Prevnar: one time - done 02/2019Pneumovax: at least 2 months after Prevnar, and then every 5-7 years4. Shingles vaccine: you had the Shingrix in 2018-2018SCREENING: Colonoscopy: last one done in 2010, repeat screening recommended in ap smear: done in 2016, repeat due - next yearMammogram: done 07/20/19Bone density ( DEXA): last done in 2016, recheck this yearCholesterol: last checked in June 2019Follow up:1 yearZ90.81 Acquired absence of spleenComments:Vaccinations recommended for patients with no spleen:Pneumonia vaccination: see aboveMeningitis vaccination: Menactra - initial two doses and then every 5 years. Initial dose given 02/2019Haemophilus influenza vaccination: one dose - given 02/20192183U49.851 Other specified disorders of bone density and structure, right thigh Functional Status Description No Information Available Mental Status Description No Information Available Referrals Refer to Reason for Referral Status Appt Date Beto Samaniego MD FOR 08/03/19 ---[id number]--- INPATIENT Created [address] [place] [address] [place] [address] [phone]
--- OUTSIDE RECORDS SUMMARY | 2020-01-13 16:15 | XMS REPORT | Continuity of Care Document ---
:1955 External Reference #:[id number] Author Name Arlen Henderson M.D. (transmitted by agent of provider Марина Stephen) Address [address] [place] [address] Care Team Providers Name Role Phone Other Physician Practices Care Team Information Special Services Agent Unavailable Amita Ennis MD - Internal Care Team Information Special Services Agent Medicine Channing Coyle M.D. - Hematology & Care Team Information Special Services Agent [phone] Oncology Arlen Henderson MD - Cardiovascular Care Team Information Special Services Agent Disease Cem Kc M.D. - Neurology Care Team Information Special Services Agent [phone] Beto Samaniego MD - Surgery Care Team Information Special Services Agent [phone] Problems Active Problems Provider Date Marfan's syndrome Fern Jean M.D., FACNelly Onset: 03/17/2011 Hypothyroidism Fenr Jean M.D., MIA Onset: 03/17/2011 Mitral valve disorder Meir Bone M.D., [facility] Onset: 09/13/2014 Note: mitral valave insufficiency Osteoporosis Zulay Kraus M.D. Onset: 11/07/2014 Scoliosis deformity of spine Zulay Kraus M.D. Onset: 11/07/2014 Tendinosis Zulay Kraus M.D. Onset: 02/19/2015 Note: rotatot cuff with AC joint OA Thoracic aortic ectasia Meir Bone M.D., [facility] Onset: 10/10/2015 Arachnoid cyst Zulay Kraus M.D. Onset: 10/23/2015 Note: L anterior fossa Disturbance in sleep behavior Yudi Louie MD Onset: 12/18/2015 Paroxysmal atrial fibrillation Meir Bone M.D., [facility] Onset: 2015 Headache Cem Kc M.D. Onset: [...] For Denies Drug Use Smoking Status Reviewed: 01/12/20 Patient has never smoked Exercise Type/Frequency Does [...] mouth Lety Reyes, 04/18/2019 twice a day [employer] Metoprolol Tartrate take 1 tablet 180tabs I48.0 [...] Blood 1 adult large 1units Maria C Demetrius Mcfadden, 11/11/2018 Pressure Monitor cuff and unit N.P. Kit for upper arm utd twice a day . please log results . call providor when systolic reading is below 100 or above 1 Levothyroxine Sodium take 1 tablet 90tabs E03.9 Amita 10/20/2017 100mcg by mouth once Raymon MJanDJan Tablets daily Calcium 600 + D 1 tab bid Zulay Kraus, 02/05/2016 M.D. [id number] Tablets Potassium Chloride ER 2 tabs by [...] pain Oxycodone-Acetaminophen 1 tabs by mouth 12tabs [facility], 2018 - every 4 hours as M.D. 10/06/2019 5-325mg Tablets needed for pain Medications Administered in Office Medication SIG Qnty Indications [facility]ing Provider [facility] administered Unknown 01/11/2019 Injection Inj, Regadenoson, 0.1 MG Edson Smith M.D. 07/22/2013 Injection Technetium TC 99M TetrofEdson oliva M.D. 07/22/2013 Per Unit Dose Up To 40 Millicuries Injection Immunizations CPT Code Status Date Vaccine Lot # [id number] Given 10/09/2018 Influenza Virus Vaccine, Quadrivalent, Split, Preservative Free 80617 Given 07/19/2018 Zoster (Shingles) Vaccine (HZV), Recombinant, Subunit, Adjuvanted 72788 Given 07/19/2018 Zoster (Shingles) Vaccine (HZV), Recombinant, Subunit, Adjuvanted 47744 Given 10/20/2017 Influenza Virus Vaccine, Quadrivalent, Split, [id number] Preservative Free 76636 Given 11/26/2016 Influ Virus Vaccine, Quadrivalent, Split Virus, [place] [address] Given 2015 Influenza Virus Vaccine, Quadrivalent, Split, Preservative Free 18600 Given 10/17/2014 Tdap - Tetanus/Diptheria/Acellular Pertussis [id number] 38246 Given 10/17/2014 Flu Vaccine Split Virus Preservative Free For [id number] Indiv 3Yr Older 78951 Given 09/05/2013 Flu Vaccine Split Virus Preservative Free For [id number] Indiv 3Yr Older Q2038 Given 09/01/2012 Fluzone Vaccine [id number] 73438 Given 01/30/2010 Influenza Virus Vaccine, Pandemic Formulation 67704 Given 01/30/2010 Administration Swine Flu Shot 70437 Given 01/05/2009 Influenza Virus 3Yrs & Over 31347 Given 11/24/2006 Influenza Virus 3Yrs & Over 88482 Given 11/24/2006 Influenza Virus 3Yrs & Over 48618 Given 2003 Td Toxoids Adsorbed For Use 7Yrs Or Older For Intramuscular Use Vital Signs Date Vital Result Comment 01/12/2020 3:46pm Height 70 inches 5'10" Weight [...] kg/m2 Ejection Fraction 50-55% date 04/04/19 ECHO 11/09/2019 1:59pm Height 70 inches 5'10" Weight 166.50 lb Heart Rate 68 /min BP Systolic 115 mmHg BP Diastolic 68 mmHg Body Temperature 97.1 F O2 % BldC Oximetry 97 % BMI (Body Mass Index) 23.9 kg/m2 Results Test Acquired Date Facility Test Result H/L Range Note CBC Auto 01/10/2020 [facility] White Blood 8.5 10^3/uL Normal 3.5-10.[address] [place] [address] [phone] Red Blood Count 4.47 10^6/uL Normal 3.70-4.87 [...] Blood Cells % 0.1 CBC Auto 01/03/2020 [facility] White Blood 6.9 10^3/uL Normal 3.5-10.[address] [place] [address] [phone] Red Blood Count 4.49 10^6/uL Normal 3.70-4.87 [...] 12.4 fL High 7.4-10.4 Laboratory test 01/03/2020 [facility] Pathologist (SEE NOTE) [address] [place] [address] [phone] CBC Auto Diff 12/27/2019 [facility] White Blood 9.4 Normal 3.5 -[address] Count 10^3/uL 0.8 [place] [address] [phone] Red Blood Count 4.42 10^6/uL Normal 3.70-4.87 [...] 0.2 Large Platelets Present CBC Auto 12/20/2019 [facility] White Blood 8.7 10^3/uL Normal 3.5-10.[address] [place] [address] [phone] Red Blood Count 4.52 10^6/uL Normal 3.70-4.87 [...] 10^3/uL Low 150-450 4 CBC Auto 12/15/2019 [facility] White Blood 9.2 10^3/uL Normal 3.5-10.[address] [place] [address] [phone] Red Blood Count 4.32 10^6/uL Normal 3.70-4.87 [...] Blood Cells % 0.1 Basic Metabolic 12/15/2019 [facility] Sodium 137 mmol/L Normal 135-[address] [place] [address] [phone] Potassium 3.8 mmol/L Normal 3.5-5.0 Chloride 104 mmol/L Normal 101-111 Co2 Carbon Dioxide 29 mmol/L Normal 22-32 Anion Gap 4 mmol/L Normal 2-11 Glucose 92 mg/dL Normal 70-100 Blood Urea Nitrogen 16 mg/dL Normal 6-24 Creatinine 0.80 mg/dL Normal 0.51-0.95 BUN/Creatinine Ratio 20.0 Normal 8-20 Calcium 8.4 mg/dL Low 8.6-10.3 Egfr Non- 72.4 >60 Egfr 87.7 >60 6 Basic Metabolic 11/28/2019 [facility] Sodium 138 mmol/L Normal 135-145 Panel [address] [place] [address] [phone] Potassium 4.1 mmol/L Normal 3.5-5.0 Chloride 103 mmol/L Normal 101-111 Co2 Carbon Dioxide 28 mmol/L Normal 22-32 Anion Gap 7 mmol/L Normal 2-11 Glucose 107 mg/dL High 70-100 Blood Urea Nitrogen 15 mg/dL Normal 6-24 Creatinine 0.71 mg/dL Normal 0.51-0.95 BUN/Creatinine Ratio 21.1 High 8-20 Calcium 8.8 mg/dL Normal 8.6-10.3 Egfr Non- 83.1 >60 Egfr 100.6 >60 7 Laboratory test 11/28/2019 [facility] Magnesium 2.0 mg/dL Normal 1.9-2.7 finding [address] [place] [address] [phone] Thyroid Panel 11/28/2019 [facility] Free T4 (Free 1.13 High 0.61-1.[address] [facility] Thyroxine) ng/[place] [address] [phone] Thyroxine 7.68 g/dL Normal 6.09-12.23 TSH (Thyroid Stim Horm) 6.00 mcIU/mL High 0.34-5.60 Liver Function 11/28/2019 [facility] Total Protein 5.8 g/dL Low 6.4-8.9 Panel [address] [place] [address] [phone] Albumin 3.5 g/dL Normal 3.2-5.2 Globulin 2.3 g/dL Normal 2-4 Albumin/Globulin Ratio 1.5 Normal 1-3 Total Bilirubin 0.60 mg/dL Normal 0.2-1.0 Direct Bilirubin 0.10 mg/dL Normal 0.03-0.18 Indirect Bilirubin 0.5 mg/dL Normal 0.3-1.0 Alkaline Phosphatase 54 U/L Normal 34-104 Alt 8 U/L Normal 7-52 Ast 12 U/L Low 13-39 CBC Auto 11/25/2019 [facility] White Blood 12.0 10^3/uL High 3.5-10.[address] [place] [address] [phone] Red Blood Count 4.29 10^6/uL Normal 3.70-4.87 [...] Red Blood Cells % 0.0 Manual 11/25/2019 [facility] Immature 4.0 % Normal 0-[address] [address] [phone] Neutrophil % 67.0 % Lymphocytes % 8.0 % Monocytes % 19.0 % Eosinophils % 2.0 % Metamyelocytes % 2.0 % Normal 0-2 Myelocytes % 2.0 % High 0-1 RBC Morphology Normal Normal CBC Auto 11/18/2019 [facility] White Blood 17.7 10^3/uL High 3.5-10.[address] [place] [address] [phone] Red Blood Count 4.92 10^6/uL High 3.70-4.87 [...] Blood Cells % 0.2 CBC Auto 11/15/2019 [facility] White Blood 9.0 10^3/uL Normal 3.5-10.[address] [place] [address] [phone] Red Blood Count 4.07 10^6/uL Normal 3.70-4.87 [...] Blood Cells % 0.2 Comp Metabolic 11/10/2019 [facility] Sodium 135 mmol/L Normal 135-[address] [place] [address] [phone] Potassium 4.5 mmol/L Normal 3.5-5.0 Chloride 103 [...] Egfr 91.6 >60 9 CBC Auto 11/10/2019 [facility] White Blood 8.4 10^3/uL Normal 3.5-10.[address] [place] [address] [phone] Red Blood Count 4.79 10^6/uL Normal 3.70-4.87 [...] Red Blood Cells % 0.7 Laboratory 11/10/2019 [facility] Partial 27.7 Normal 26.0- 38.[address] [address] Time PTT [phone] Inr/Protime 11/10/2019 [facility] Inr 1.12 High 0.82-1.[address] [place] [address] [phone] CBC Auto Diff 11/09/2019 [facility] White Blood 7.5 10^3/uL Normal 3.5-10.[address] [place] [address] [phone] Red Blood Count 4.75 10^6/uL Normal 3.70-4.87 [...] 10.8 fL High 7.4-10.4 Comp Metabolic 11/09/2019 [facility] Sodium 136 mmol/L Normal 135-[address] [place] [address] [phone] Potassium 4.4 mmol/L Normal 3.5-5.0 Chloride 103 [...] Egfr 94.4 >60 12 Laboratory test 11/09/2019 [facility] Pathologist (SEE NOTE) [address] [place] [address] [phone] CBC Auto Diff 09/16/2019 [facility] White Blood 8.3 Normal 3.5 - [address] Count 10^3/uL 10.8 [place] [address] [phone] Red Blood Count 5.04 10^6/uL High 3.70-4.87 [...] Blood Cells % 0.0 CBC Auto 08/09/2019 [facility] White Blood 8.4 10^3/uL Normal 3.5-10.[address] [place] [address] [phone] Red Blood Count 4.95 10^6/uL High 3.70-4.87 [...] Blood Cells % 0.0 CBC Auto 08/02/2019 [facility] White Blood 8.1 10^3/uL Normal 3.5-10.[address] [place] [address] [phone] Red Blood Count 5.09 10^6/uL High 3.70-4.87 [...] Blood Cells % 0.1 CBC Auto 07/25/2019 [facility] White Blood 7.3 10^3/uL Normal 3.5-10.[address] [place] [address] [phone] Red Blood Count 4.93 10^6/uL High 3.70-4.87 [...] Blood Cells % 0.1 Lipid Profile 07/19/2019 [facility] Triglycerides 160 mg/dL 16 (Trig/Chol/HDL) [address] [place] [address] [phone] Cholesterol 199 mg/dL 17 HDL Cholesterol 44.7 mg/dL 18 LDL Cholesterol 122 mg/dL 19 Laboratory test 07/19/2019 [facility] Vitamin D 44.4 Normal 20 -50 [address] Total 25(Oh) ng/[place] [address] [phone] CBC Auto Diff 07/18/2019 [facility] White Blood 8.1 Normal 3.5 -10.[address] Count 10^3/[place] [address] [phone] Red Blood Count 4.93 10^6/uL High 3.70-4.87 [...] 07/11/19 Procedures Date Code Description Status 01/12/2020 83405 EKG Tracing & Interpretation Completed 10/07/2019 40535 EKG Tracing & Interpretation Completed 08/03/2019 46933 Laparoscopy, Surgical, Splenectomy Completed 08/03/2019 08958 Laparoscopy, Surgical, Splenectomy Completed 07/20/2019 [id number] Mammogram Completed 03/08/2018 [id number] Mammogram Completed 11/18/2017 [id number] Bone Mineral Density Test Completed 02/17/2017 [id number] Mammogram Completed 02/15/2016 [id number] Mammogram Completed 10/31/2014 [id number] Bone Mineral Density Test Completed 10/31/2014 [id number] Mammogram Completed 11/07/2013 [id number] Mammogram Completed 09/09/2012 [id number] Bone Mineral Density Test Completed 09/09/2012 [id number] Mammogram Completed 07/01/2011 [id number] Colonoscopy Completed 04/15/2011 [id number] Mammogram Completed 02/07/2010 [id number] Mammogram Completed 02/07/2010 [id number] Bone Mineral Density Test Completed Medical Devices Description No Information Available Encounters Type Date Location Provider Dx Diagnosis Office Visit 11/13/2019 [facility] Liat Parsons MD D69.49 Other primary 10:26a Assoc,pc thrombocytopenia Hospitalists I48.91 Unspecified atrial fibrillation E53.8 Deficiency of other specified B group vitamins E03.9 Hypothyroidism, unspecified Q87.40 Marfan's syndrome, unspecified Office Visit 11/09/2019 2:00p [facility] Internal Fernprosper Jean, D69.3 Immune Ninfa Atkins M.D., FACP thrombocytopenic Ccmob purpura I48.0 Paroxysmal atrial fibrillation R60.0 Localized edema Office Visit 10/07/2019 2:20p [facility] Arlen Henderson, Q87.410 Marfan's Of [facility] Brittney syndrome with aortic dilation I48.0 Paroxysmal atrial fibrillation 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 thrombocytopenic Ccmob purpura Office Visit 07/15/2019 [facility] Amita M54.2 Cervicalgia 10:40a Ninfa Ennis M.D. Ccmob E78.5 Hyperlipidemia, unspecified M81.0 Age-related osteoporosis w/o current pathological fracture Z12.31 Encntr screen mammogram for malignant neoplasm of breast M22.00 Recurrent dislocation of patella, unspecified knee Assessments Date Code Description Provider 01/12/2020 I48.0 Paroxysmal atrial fibrillation Arlen Henderson M.D. 01/12/2020 Q87.40 Marfan's syndrome, unspecified Arlen Henderson M.D. 01/12/2020 Z51.81 Encounter for therapeutic drug level Arlen Henderson M.D. monitoring 01/12/2020 D69.49 Other primary thrombocytopenia Arlen Henderson M.D. 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 - Arlen Henderson M.D.I48.0 Paroxysmal atrial fibrillationComments:Normal rhythm todayFollow up:OV with ECG 4-6 months.Recommendations:Refer for ablation when platelets reach 50K sustained.Q87.40 Marfan's syndrome, unspecifiedComments:Good BP control.F/u Beto Parsons.Z51.81 Encounter for therapeutic drug level monitoringNew Orders: Diffusion Capacity, Scheduled: 02/09/20Follow up:We will call w/oimnntdN60.49 Other primary thrombocytopeniaComments:Dr Coyle. Functional Status Description No Information Available Mental Status Description No Information Available Referrals Refer to Reason for Referral Status Appt Date Beto Samaniego MD FOR 08/03/19 ---[id number]--- INPATIENT Created [address] [facility] [address] [facility] [place] [address] [place] [address] [phone]
[2020-01-13 16:26] LABS: Albumin 3.5 g/dL (3.2-5.2); Albumin/Globulin Ratio 1.5 (1-3); BUN/Creatinine Ratio 14.8 (8-20); Calcium 8.5 mg/dL (8.6-10.3); EGFR African American 78.5 (>60); EGFR Non-African American 64.9 (>60); Globulin 2.4 g/dL (2-4); Potassium 4.3 mmol/L (3.5-5.0); Total Bilirubin 0.6 mg/dL (0.2-1.0); Total Protein 5.9 g/dL (6.4-8.9)
[2020-01-13] MEDS ORDERED: Iohexol 350* (CONTRAST) 500 ML MDV IV ONE (16:41)
[2020-01-13 16:43] LABS: Large Platelets Present; Mean Platelet Volume 9.8 fL (7.4-10.4); Platelet Count 10 10^3/uL (150-450)
[2020-01-13] MEDS ORDERED: fentaNYL* 50 MCG/ML 2 ML VIAL (100 MCG VIAL) IV SLOW PU ONE ×2 (17:37→17:59)
--- NOTE | 2020-01-13 17:37 | CONSULT ---
<Andrea Nye - Last Filed: 01/13/20 17:48> Medications Active Medications: Sodium Chloride (Ns 0.9% 1000 Ml) 1,000 mls @ 125 mls/hr IV ED ONCE ONE Stop: 01/14/20 01:30 Last Admin: 01/13/20 17:44 Dose: 125 mls/hr Home Medications: Potassium Chlor TAB* [Klor Con ER TAB 10 MEQ*] 20 meq PO BID 10/13/17 [History Confirmed 11/10/19] Levothyroxine TAB* [Synthroid 100 MCG TAB*] 100 mcg PO QAM 03/13/19 [History Confirmed 11/10/19] Magnesium Oxide TAB* [MagOx 400 TAB*] 500 mg PO BID 03/29/19 [History Confirmed 11/10/19] Calcium Carbonate/Vitamin D3 [Calcium 600 + Vit D Tablet] 1 each PO BID [History Confirmed 11/10/19] Metoprolol Tartrate TAB* [Lopressor TAB*] 25 mg PO BID 04/27/19 [History Confirmed 11/10/19] Selenomethionine [Selenium] 200 mcg PO QAM 04/27/19 [History Confirmed 11/10/19] Amiodarone TAB* [Cordarone Tab*] 200 mg PO QAM 05/31/19 [History Confirmed 11/10] Cyanocobalamin TAB* [Vitamin B12 TAB*] 1,000 mcg PO QAM 05/31/19 [History Confirmed 11/10/19] Cyclobenzaprine (NF) [Cyclobenzaprine 5 MG (NF)] 5 mg PO Q8HR PRN 05/31/19 [ History Confirmed 11/10/19] Cholecalciferol TAB* [Vitamin D TAB*] 400 unit PO QAM 06/10/19 [History Confirmed 11/10/19] Selenium (NF) 200 mcg PO QAM 07/22/19 [History Confirmed 11/10/19] Acetaminophen TAB* [Tylenol TAB*] 650 mg PO Q4H PRN tab 08/05/19 [Rx Confirmed 11/10/19] oxyCODONE/Acetamin 5/325 MG* [Percocet 5/325 TAB*] 1 tab PO Q4H PRN #6 tab MDD 4 08/05/19 [Rx Confirmed 12/12/19] Dexamethasone TAB* [Decadron TAB*] 40 mg PO DAILY 2 Days #20 tab 11/13/19 [Rx] Review of Systems - Measurements Intake and Output: Intake and Output Last 24 Hours 01/11/20 01/12/20 01/13/20 01/14/20 06:59 06:59 06:59 06:59 Intake Total 1000 Balance 1000 Weight 72.575 kg Intake: IV Fluids 1000 - Review of Systems Review of Systems Statement: All other review of systems negative, unless stated above. Objective Vital Signs: Temp Pulse Resp BP Pulse Ox 97.7 F 56 24 104/37 94 01/13/20 15:10 01/13/20 16:37 01/13/20 17:43 01/13/20 16:37 01/13/20 16:37 Laboratory Results: 01/13/20 15:36 01/13/20 15:36 Total Bilirubin 0.60 mg/dL (0.2-1.0) 01/13/20 15:36 AST 14 U/L (13-39) 01/13/20 15:36 ALT 10 U/L (7-52) 01/13/20 15:36 Alkaline Phosphatase 72 U/L (34-104) 01/13/20 15:36 Total Protein 5.9 g/dL (6.4-8.9) L 01/13/20 15:36 Albumin 3.5 g/dL (3.2-5.2) 01/13/20 15:36 Globulin 2.4 g/dL (2-4) 01/13/20 15:36 Albumin/Globulin Ratio 1.5 (1-3) 01/13/20 15:36 01/13/20 15:36 Troponin I 0.01 <Viktor Pedro - Last Filed: 01/13/20 22:11> Subjective Date of Service: 01/13/20 Interval History: ER consult Dr. Britt attending PCP: Dr. Ennis Financial Health Counselor; Dr. 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 She was in her usual state of health until developing sudden onset chest, abdomen and to a lesser extend back discomfort today about 2 PM while at work. She was found with a dissection of her entire aorta. She is hemodynamically stable. A limited bedside echo showed poor aorta visualization but with normal LVEF and no pericardial effusion. Valve evaluation was not performed. Eliquis was held for past 2 weeks due to low platelets. She received 50 mcg IV fentanyl for pain, IV fluids , plateletes and oxygen supplementation. Initial BP 80/34 mmhg. She did require increasing 02 requirements and was on an oximask saturating 95% and appeared comfortable at time of transfer. She is conversing ather baseline and her significant other is at baseline. Meds[employer] B-12 500 mcg every morning Cyclobenzaprine HCL 5 mg 1 tabs every 8 hours as needed Magnesium Oxide 500MG 1 tab by mouth twice a day Metoprolol Tartrate 25 mg take 1 tablet oral twice a day. Amiodarone HCL 200 mg 1 tab by mouth every day with meal Levothyroxine Sodium 100 mcg take 1 tablet by mouth once daily Calcium 600 + D 600-200 MG-Unit 1 tab BID Potassium Chloride ER 10 Meq 2 tabs by mouth twice daily Selenium 200 mcg 1 tab po qd Medication list reviewed and reconciled on Allergies: Sulfa 01/23/10 Nickel 09/09/16 Pmhx: Marfan's with mildly dilated aorta ITP Paroxysmal atrial fibrillation has failed sotalol and tikosyn. Now on amiodarone. Carotid Disease - (05/2019) Carotid dissection, pseudoaneurysm, seeing Dr. Hunt. Angiogram planned when platelets are normal and can be safely off anticoagulation. Mitral Regurgitation not severe Hypothyroidism Anxiety Surgical Hx: surgical correction of strabismus - as child Vaginal Surgery - polypectomy as child Splenectomy - (2018) for ITP FH: Heart Disease. Father: . due to MT - (age 43 Years); Marfan's. . Mother: . (Hx) due to Stroke. cervical cancer in her 40's . Siblings:. SH: no tobacco, occasional alcohol, no drugs Medications Active Medications: Sodium Chloride (Ns 0.9% 1000 Ml) 1,000 mls @ 125 mls/hr IV ED ONCE ONE Stop: 01/14/20 01:30 Home Medications: Potassium Chlor TAB* [Klor Con ER TAB 10 MEQ*] 20 meq PO BID 10/13/17 [History Confirmed 11/10/19] Levothyroxine TAB* [Synthroid 100 MCG TAB*] 100 mcg PO QAM 03/13/19 [History Confirmed 11/10/19] Magnesium Oxide TAB* [MagOx 400 TAB*] 500 mg PO BID 03/29/19 [History Confirmed 11/10/19] Calcium Carbonate/Vitamin D3 [Calcium 600 + Vit D Tablet] 1 each PO BID [History Confirmed 11/10/19] Metoprolol Tartrate TAB* [Lopressor TAB*] 25 mg PO BID 04/27/19 [History Confirmed 11/10/19] Selenomethionine [Selenium] 200 mcg PO QAM 04/27/19 [History Confirmed 11/10/19] Amiodarone TAB* [Cordarone Tab*] 200 mg PO QAM 05/31/19 [History Confirmed 11/10] Cyanocobalamin TAB* [Vitamin B12 TAB*] 1,000 mcg PO QAM 05/31/19 [History Confirmed 11/10/19] Cyclobenzaprine (NF) [Cyclobenzaprine 5 MG (NF)] 5 mg PO Q8HR PRN 05/31/19 [ History Confirmed 11/10/19] Cholecalciferol TAB* [Vitamin D TAB*] 400 unit PO QAM 06/10/19 [History Confirmed 11/10/19] Selenium (NF) 200 mcg PO QAM 07/22/19 [History Confirmed 11/10/19] Acetaminophen TAB* [Tylenol TAB*] 650 mg PO Q4H PRN tab 08/05/19 [Rx Confirmed 11/10/19] oxyCODONE/Acetamin 5/325 MG* [Percocet 5/325 TAB*] 1 tab PO Q4H PRN #6 tab MDD 4 08/05/19 [Rx Confirmed 11/10/19] Dexamethasone TAB* [Decadron TAB*] 40 mg PO DAILY 2 Days #20 tab 11/13/19 [Rx] Review of Systems - Measurements Intake and Output: Intake and Output Last 24 Hours 01/11/20 01/12/20 01/13/20 01/14/20 06:59 06:59 06:59 06:59 Weight 160 lb - Review of Systems Constitutional Symptoms: Negative: Weight Gain, Weight Loss, Weakness, Fatigue, Fever, Night Sweats, Unexplained Falls, Other Dermatology: Negative: Rash, Skin Lesions, Cancer, Skin Lumps HEENT: Negative: Change in Hearing, Vertigo Eyes: Negative: Change in Vision, Double Vision Thyroid: Negative: Thyroid Nodule, Cold Intolerance, Primary Hypothyroidism, Primary Hyperthyroidism Pulmonary: Negative: Cough, Sputum, Hemoptysis Cardiology: Positive: Chest Pain Negative: Shortness of Breath, Palpitations, Swelling of Ankles, Peripheral Vascular Dis, Edema, Faintness, Syncope, Claudication, Paroxysmal Nocturnal Dyspnea, Orthopnea Gastroenterology: Negative: Blood in Stools, Haematemesis, Melena Genital - Urinary: Negative: Dysuria, Hematuria, Polyuria Musculoskeletal: Negative: Joint Pain, Joint Stiffness Endocrinology: Negative: Obesity, Diabetes, Polydipsia, Polyuria Hematologic/Lymphatic: Negative: Use of Anticoagulant, Use of Antiplatelet Drugs Neurology: Negative: Hx of Stroke\TIA, Hx Seizures Psychiatry: Positive: Eating Disorders Negative: Unusual Anxiety, Hypomania Allergic/Immunologic: Negative: Hx HIV, Immunocompromise Review of Systems Statement: All other review of systems negative, unless stated above. Objective Vital Signs: Temp Pulse Resp BP Pulse Ox 97.7 F 56 23 104/37 94 01/13/20 15:10 01/13/20 16:37 01/13/20 16:37 01/13/20 16:37 01/13/20 16:37 Appearance: mildly uncomforable appearing but not distressed Ears/Nose/Mouth/Throat: Clear Oropharnyx, Mucous Membranes Moist Neck: NL Appearance and Movements; NL JVP, Trachea Midline Respiratory: Symmetrical Chest Expansion and Respiratory Effort, Clear to Auscultation Cardiovascular: NL Sounds; No Murmurs; No JVD, RRR, No Edema Abdominal: NL Sounds; No Tenderness; No Distention Extremities: No Edema, No Clubbing, Cyanosis Skin: No Rash or Ulcers Neurological: Alert and Oriented x 3 Laboratory Results: 01/13/20 15:36 01/13/20 15:36 Total Bilirubin 0.60 mg/dL (0.2-1.0) 01/13/20 15:36 AST 14 U/L (13-39) 01/13/20 15:36 ALT 10 U/L (7-52) 01/13/20 15:36 Alkaline Phosphatase 72 U/L (34-104) 01/13/20 15:36 Total Protein 5.9 g/dL (6.4-8.9) L 01/13/20 15:36 Albumin 3.5 g/dL (3.2-5.2) 01/13/20 15:36 Globulin 2.4 g/dL (2-4) 01/13/20 15:36 Albumin/Globulin Ratio 1.5 (1-3) 01/13/20 15:36 01/13/20 15:36 Troponin I 0.01 Diagnostic Imaging: Limited Transthoracic Echocardiogram Summary: - Left ventricle: The cavity size is normal. Wall thickness is normal. Systolic function is normal. The estimated ejection fraction is 55-60%. Wall motion is normal; there are no regional wall motion abnormalities. - Pericardium, extracardiac: There is no significant pericardial effusion. - Aorta not well seen. Recommendations: Limited study, patient with acute aortic dissection involving entire aorta by CT scan. EKG Data: telemetry: sinus rhythm Assessment/Plan Acute type 1 dissection in setting of Marfan's syndrome and ITP with plts 10K - Discussed with cardiac surgeon Dr. Tima Lui and patient transported by helicopter to [facility] for consideration of emergency surgery. It's anticipated she will have a BUDDY at that point to further evaluate for aortic regurgitation.
[2020-01-13] MEDS ORDERED: fentaNYL* 50 MCG/ML 2 ML VIAL (100 MCG VIAL) ONE ×2 (17:39→18:00)
[2020-01-13 18:03] VITALS: BP 110/45
--- NOTE | 2020-01-13 21:26 | ECHO ---
*[facility]* [place] [address] Fax #: [phone] Limited Transthoracic Echocardiogram Patient: Carrie Soto : 1955 Study Date: 01/13/2020 Age: 64 Gender: F HR: 61 bpm Height: 70 in /177.8 cm BSA: 1.83 m^2 Weight: 150 lb /68.2 kg BMI: 21.6 kg/m^2 *Referring Physician: * Viktor Pedro MD *Reading Physician: * Viktor Pedro MD Indications: Chest Pain, unspecified. Aortic Dissection. History: Marfan's Syndrome. Atrial fibrillation. Mitral prolapse. Aortic aneurysm. Conclusions Summary: - Left ventricle: The cavity size is normal. Wall thickness is normal. Systolic function is normal. The estimated ejection fraction is 55-60%. Wall motion is normal; there are no regional wall motion abnormalities. - Pericardium, extracardiac: There is no significant pericardial effusion. - Aorta not well seen. Recommendations: Limited study, patient with acute aortic dissection involving entire aorta by CT scan. Study data: Transthoracic echocardiogram, limited study. Procedure: Transthoracic echocardiography was performed. Image quality was fair. Location: Emergency department. Patient status: Outpatient. Rhythm: Normal sinus rhythm. Findings Left ventricle: The cavity size is normal. Wall thickness is normal. Systolic function is normal. The estimated ejection fraction is 55-60%. Wall motion is normal; there are no regional wall motion abnormalities. Pericardium: There is no significant pericardial effusion. Prepared and electronically signed by Viktor Pedro MD 01/13/2020 21:25
== END 2020-01-13 18:20 | disposition short-term general hospital (02) ==
LOC: ED 15:05
DX: I71.01 Dissection of thoracic aorta (principal); D69.6 Thrombocytopenia, unspecified; R07.9 Chest pain, unspecified; R10.9 Unspecified abdominal pain; I10 Essential (primary) hypertension; E03.9 Hypothyroidism, unspecified; Z88.2 Allergy status to sulfonamides; I48.91 Unspecified atrial fibrillation; R94.31 Abnormal electrocardiogram [ECG] [EKG]
CPT/HCPCS: 36415; 71045; 71275; 74174; 80053; 83605; 84484; 85025; 86850; 86900; 86901; 86922; 93005; 93308; 96361; 96374; 96376; 99285; J3010; P9035; P9040

== ENCOUNTER 2020-03-24 17:51 | Observation (INO) | payer BC ==
[2020-03-24] MEDS ORDERED: Acetaminophen TAB* 325 MG PO PRN (18:16)
[2020-03-24] MEDS ORDERED: Docusate CAP* 100 MG PO PRN (18:23)
[2020-03-24] MEDS: Diltiazem IV BAG* D5W Premix 125 MG/125 ML BAG IV SCH (18:31)
[2020-03-24] MEDS ORDERED: Potassium Chlor TAB* 10 MEQ TAB.ER PO ONE (19:12)
[2020-03-24] MEDS ORDERED: Magnesium Sulfate 2 GM IV* 2 GM/50 ML BAG IVPB ONE (19:12)
--- NOTE | 2020-03-24 19:50 | HP ---
Amended report to correct patient account number. CC: [facility], [facility]; Dr. Amita Ennis; Dr. Arlen Henderson; Dr. Darian Chaudhry; Dr. Tima Lui, [facility]* ADMISSION/TRANSFER SUMMARY: DATE OF ADMISSION: DATE OF TRANSFER: 03/24/20 CHIEF COMPLAINT: Racing heart and shortness of breath. REASON FOR TRANSFER/ADMISSION: Atrial fibrillation with a rapid ventricular rate. HISTORY OF PRESENT ILLNESS: Carrie Soto is a 64-year-old woman, well known to me, with a history of Marfan disease and paroxysmal AFib. The patient had been in [facility] for approximately 2 months. She was transferred there with an acute aortic type A dissection and was brought here on 03/21/20 to [facility] for rehab. Summary of [facility] course: 1. Bentall procedure (#28 Valsalva graft and 25 Magna Ease pericardial tissue valve) with aortic root graft and aortic valve replacement on 01/13/20. 2. Open chest postop. 3. Return to OR on 01/15/20 for left atrial appendage ligation and incision closed. 4. Pleural effusion on 01/17/20, requiring pigtail catheter drainage. 5. Respiratory distress, reintubated from 01/19/20 through 01/23/20 due to a pulmonary embolism. 6. PE, treated initially with bivalirudin, converted to heparin drip. 7. Peroneal thrombus found on ultrasound. 8. Ischemic toes. 9. Fall on 01/24/20, unwitnessed. Negative for bleed on CT of the head. 10. Received IVIG and IV steroids. 11. Delirium throughout much of her hospitalization. 12. Reintubated on 01/28/20 for aspiration pneumonitis, leukocytosis to 64,000. 13. Tracheostomy on 01/30/20. 14. Nplate for ITP on 01/30/20 while on steroids. 15. Left AKA on 03/05/20. 16. Paroxysmal AFib, date unclear. Amiodarone was given "per protocol." 17. Coumadin initiated for bilateral PEs, DVTs, and paroxysmal AFib. Therapeutic INR on 03/19/20, but on arrival here on 03/21/20 it was 1.6. The patient states that since she has been here, she has been more tachypneic. It has been harder for her to sleep due to breathing and today while doing physical therapy, she felt much more winded and generally weaker. Dr. Alvarado reports that she did not have an EKG on arrival, that her pulse was below 100 and regular while today when I checked her pulse ox, it was rapid and irregular and EKG today confirmed AFib with a rapid ventricular rate. PAST MEDICAL HISTORY: 1. Marfan syndrome, followed at [facility]; dilatation of the ascending aorta; right carotid artery dissection. 2. Paroxysmal AFib, resistant to medical management. At the time of discharge , she was being treated with amiodarone. Followed by Dr. Darian Chaudhry at [facility]. 3. ITP, followed by Dr. Coyel, with recurrent severe drop in platelets post splenectomy in December. 4. Lyme disease. 5. Mitral valve prolapse. 6. Hypothyroid disease. 7. Scoliosis. 8. Osteopenia. 9. Rotator cuff issues. 10. Shingles. 11. Carotid dissection. MEDICATIONS: While at [facility], at the time of transfer include: 1. Tylenol p.r.n. 2. Aspirin 81 mg a day. 3. Lipitor 20 mg a day. 4. Os-Donovan/D tabs 250/125 one tab p.o. b.i.d. 5. Colace 100 mg b.i.d. 6. Lasix 60 mg a day. 7. Levothyroxine 100 mcg a day. 8. Ativan p.r.n. 9. Toprol-XL 75 mg a day. 10. Nystatin topical powder b.i.d. 11. Protonix 40 mg a day. 12. PEG 17 g daily. 13. Potassium chloride 20 mEq a day. 14. Compazine 10 mg q.6 hours p.r.n. nausea, vomiting. 15. Seroquel 25 mg q.h.s. 16. Senokot p.r.n. constipation. 17. Desyrel 50 mg q.h.s. 18. Coumadin 2 mg a day. She was given amiodarone 400 mg 1 time on 03/24/20 and Lasix 40 mg p.o. x1 on . ALLERGIES: Include SULFA and NICKEL. FAMILY HISTORY: Significant that her father of a myocardial infarction at age 43, with a history of Marfan's. Her mother has a history of stroke and has a history of cervical cancer in her 40s. 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 She has a supportive significant other. She has never smoked. No history of alcohol abuse or significant use. REVIEW OF SYSTEMS: See history of present illness. Positive for increased dyspnea during physical therapy today, just more difficulty breathing, harder to fall asleep at night since transfer here, thumping of the heart and more awareness today, although she says it is different than her past AFib. She denies nausea, chest pain. She denies pain in her limbs. All other 14-point review of systems was negative. PHYSICAL EXAMINATION GENERAL APPEARANCE: Older, middle-aged woman, appearing older than her stated age, chronically ill and tired, lying in bed. She is awake, alert, oriented to person and place. I did not evaluate for time. Memory is vague from her hospitalization. VITAL SIGNS: The patient's blood pressure is 109/66; pulse is 128, irregularly irregular; respiratory rate is 26; oxygen saturation on room air is 95%; and temperature 98.6, and she has been afebrile since transfer on 03/21/20. HEENT: Mucous membranes were moist. NECK: Shows increased JVP, most prominent on the right. She is lying at 30 degrees and JVP goes above where I can. LUNGS: Left lung sounds are clear throughout. Right breath sounds are diminished in the lower one-third suggestive of effusion. CORONARY: S1, S2, irregularly irregular with gallop. ABDOMEN: Somewhat overweight. Otherwise, nondistended, soft. Normal bowel sounds. EXTREMITIES: Right lower extremity is free of edema and with necrotic changes as above. NEUROLOGIC: As above, awake, alert to person and place. Follows commands. Speech is articulate. No gross motor deficits, but she has lost strength from preadmission. PSYCHOLOGIC: Pleasant and cooperative. SKIN: Warm and dry. She is status post left AKA. Incision is healing well. The right lower extremity shows a foot with extensive areas of black necrotic toes and foot. No evidence of infection. DIAGNOSTIC STUDIES/LAB DATA: A 12-lead ECG today shows atrial fibrillation with a rapid ventricular rate of 124 beats a minute, QRS axis +45, normal intraventricular conduction times, and mild ST depression in the lateral leads. When this is compared with her EKG the day of transfer on 01/13/20, the AFib replaces normal sinus rhythm and ST depression is new. Labs: White count 9.5, hematocrit 24, platelets 373. INR on 03/22/20 was 1.59 , on 03/23/20 is 1.6, and today it is pending. From 03/23/20, sodium 137, potassium 3.4, chloride 103, bicarb 29, BUN 20, creatinine 0.4, glucose 108. Normal transaminases. Total protein 5.6, albumin 2.8. Transfer records from [facility] reviewed in depth. From 03/16/20, hematocrit was 26, platelets 294. From 03/19/20, INR was 2.4; on 03/20/20, INR 2.1; on , INR 1.7. Notes from 03/20/20 state that on telemetry she was in normal sinus rhythm. Chest x-ray from 03/24/20 at [facility] shows small right pleural effusion, low lung volumes, suspect mild interstitial pulmonary edema. IMPRESSION AND PLAN: In summary, Carrie Soto is a 64-year-old woman transferred to our rehab center ([facility]) on 03/21/20 following a 2-month hospitalization for her acute aortic dissection with complications as above including pulmonary emboli, ischemic lower extremities, paroxysmal atrial fibrillation, respiratory distress with reintubations. She was transferred on Coumadin and without EKG confirmation at either center of what her rhythm was. Today, the patient's pulse was more rapid, she is more winded, and she was found to be in atrial fibrillation with a rapid ventricular rate of uncertain duration, possibly this occurred overnight. For the rapid ventricular rate, pleural effusions, and evidence she is going into congestive heart failure and shortness of breath, I recommended we get her transferred off [facility] into a regular medical bed in [facility] to allow for initiation of diltiazem drip. She is going to be moved to ICU after discussion with the nursing supervisor tile and mottle. Initially, I was going to avoid resumption of amiodarone until INR theraputic; however, as she has had her left atrial appendage tied off and INRs have dipped mildly, I will initiate amiodarone. Amiodarone will additionally do a better job at lowering heart rate without lowering blood pressure further. In terms of cardioversion, if she stays in atrial fibrillation, as her left atrial appendage tied off and if her INRs have slide back up, we could consider cardioversion without transesophageal echocardiogram guidance in the near future. Long-term when the patient is through rehab, we can reconsider ablation of her atrial fibrillation. We will optimize her potassium and check magnesium levels as well. Anemia. Appears chronic with this hospitalization. We will ensure she gets adequate iron and nutrition and if this does not improve gradually, can consider hematology consult to assist. Idiopathic thrombocytopenic purpura. No thrombocytopenia currently and chronically followed by Dr. Coyle, but appears stable now. Rehab: Once either rate control or sinus rhythm restored, anticipate she will be able to get back to rehab. Congestive heart failure. As above, rhythm and rate control. Continue with diuretics for now. Get an updated echo for valvular function, ventricular function, and PA pressures. Right lower extremity ischemia/necrosis. Has seen "Dr. Pak" at [facility], being considered for a Syme's procedure. If evidence of acute destabilization, here can enlist the assistance of Surgery or perhaps see if we can a get telemedicine consult with Dr. Pak. Further recommendations will be depending on the patient's hospital course in this complex, very pleasant woman's care. [id number]/[facility] #: [id number] TYLOR
[2020-03-24] MEDS: Amiodarone TAB* 400 MG PO SCH (20:12)
[2020-03-24] MEDS: Atorvastatin* 20 MG TAB PO SCH (20:13)
[2020-03-24] MEDS: QUEtiapine TAB* 25 MG PO SCH (20:13)
[2020-03-24] MEDS: traZODone TAB* 50 MG TAB PO SCH (20:13)
[2020-03-24] MEDS: Melatonin 3 MG TAB PO SCH (23:35)
[2020-03-25] MEDS ORDERED: Temazepam CAP* 15 MG PO PRN (01:06)
[2020-03-25] MEDS: Levothyroxine TAB* 100 MCG TAB PO SCH (05:36)
[2020-03-25] MEDS: Diltiazem IV BAG* D5W Premix 125 MG/125 ML BAG IV SCH (05:36)
[2020-03-25 06:17] LABS: INR 1.81 (0.82-1.09)
[2020-03-25 06:26] LABS: Potassium 4.4 mmol/L (3.5-5.0)
[2020-03-25 06:56] LABS: Albumin 2.9 g/dL (3.2-5.2); Calcium 7.8 mg/dL (8.6-10.3); Total Bilirubin 0.6 mg/dL (0.2-1.0)
[2020-03-25 06:57] LABS: Free T4 1.2 ng/dL (0.61-1.12)
[2020-03-25 07:01] LABS: EGFR African American 170.3 (>60); EGFR Non-African American 140.7 (>60); Globulin 2.8 g/dL (2-4); Total Protein 5.7 g/dL (6.4-8.9)
[2020-03-25 07:10] LABS: TSH (Thyroid Stimulating Horm) 3.68 mcIU/mL (0.34-5.60)
[2020-03-25 07:28] LABS: Hematocrit 26 % (35-47); Hemoglobin 7.3 g/dL (12.0-16.0); Mean Corpuscular HGB Conc 29 g/dL (31-36); Mean Corpuscular Hemoglobin 24 pg (27-31); Mean Corpuscular Volume 84 fL (80-97); Platelet Count 348 10^3/uL (150-450); Red Blood Count 3.06 10^6 /uL (3.70-4.87); Red Cell Distribution Width 19 % (10-15); White Blood Count 11.5 10^3/uL (3.5-10.8)
[2020-03-25 07:29] LABS: ABS Basophils 0.1 10^3/ul (0-0.2); ABS Eosinophils 0.2 10^3/ul (0-0.6); ABS Lymphocytes 0.7 10^3/ul (1.0-4.8); ABS Monocytes 1.6 10^3/ul (0-0.8); ABS Neutrophils 8.9 10^3/ul (1.5-7.7); ABS Nucleated RBC 0.8 10^3/ul; Acanthocytes 1+; Eosinophil % 1.4 %; Lymphocyte % 6.5 %; Nucleated Red Blood Cells % 7.2; Polychromasia 1+
[2020-03-25] MEDS ORDERED: Midazolam* 1 MG/ML 5 ML VIAL (5 MG) ONE (07:41)
[2020-03-25] MEDS ORDERED: fentaNYL* 50 MCG/ML 2 ML VIAL (100 MCG VIAL) ONE (07:41)
[2020-03-25] MEDS ORDERED: Perflutren Lipid Microsphere* 3 ML VIAL ONE (07:45)
--- NOTE | 2020-03-25 07:52 | PN ---
Subjective Date of Service: 03/25/20 - Transferred for Afib, RVR and SOB Interval History: Sleeping no better last night. Less aware of palpitations. Objective Active Medications: Acetaminophen (Tylenol Tab*) 650 mg PO Q6H PRN PRN Reason: PAIN - MILD Amiodarone HCl (Cordarone Tab*) 400 mg PO DAILY [facility] Last Admin: 03/24/20 20:12 Dose: 400 mg Aspirin (Aspirin 81 Mg Chew Tab*) 81 mg PO DAILY [facility] Atorvastatin Calcium (Lipitor*) 20 mg PO 2100 [facility] Last Admin: 03/24/20 20:13 Dose: 20 mg Calcium/Vitamin D (Oscal D Tab 250/125*) 1 tab PO DAILY [facility] Docusate Sodium (Colace Cap*) 100 mg PO DAILY PRN PRN Reason: CONSTIPATION Furosemide (Lasix Tab*) 20 mg PO DAILY [facility] Diltiazem/Dextrose (Cardizem Iv D5w Bag* Premix) 125 mg in 125 mls @ 5 mls/hr IV .PER PROTOCOL [facility]; Protocol Last Admin: 03/25/20 05:36 Dose: 10 mls/hr Levothyroxine Sodium (Synthroid Tab*) 100 mcg PO DAILY@0600 [facility] Last Admin: 03/25/20 05:36 Dose: 100 mcg Melatonin (Melatonin) 3 mg PO BEDTIME [facility] Last Admin: 03/24/20 23:35 Dose: 3 mg Metoprolol Succinate (Toprol Xl Tab*) 25 mg PO BID [facility] Quetiapine Fumarate (Seroquel Tab*) 25 mg PO DAILY [facility] Last Admin: 03/24/20 20:13 Dose: 25 mg Temazepam (Restoril Cap*) 15 mg PO BEDTIME PRN PRN Reason: INSOMNIA Last Admin: 03/25/20 01:20 Dose: 15 mg Trazodone HCl (Desyrel Tab*) 50 mg PO BEDTIME [facility] Last Admin: 03/24/20 20:13 Dose: 50 mg Warfarin Sodium (Coumadin Tab(*)) 2 mg PO DAILY@1700 [facility]; Protocol Vital Signs - 8 hr 03/24/20 03/25/20 03/25/20 23:45 00:00 00:15 Temperature Pulse Rate 94 100 87 Respiratory 22 23 26 Rate Blood Pressure 104/71 115/72 113/68 (mmHg) O2 Sat by Pulse 93 93 94 Oximetry 04/03/25/20 03/25/20 00:26 00:30 01:00 Temperature Pulse Rate 96 89 98 Respiratory 23 29 28 Rate Blood Pressure 117/72 118/83 (mmHg) O2 Sat by Pulse 93 92 94 Oximetry 03/25/20 03/25/20 03/25/20 01:30 02:00 02:30 Temperature Pulse Rate 93 99 83 Respiratory 25 24 25 Rate Blood Pressure 105/64 116/70 105/71 (mmHg) O2 Sat by Pulse 94 90 92 Oximetry 03/25/20 03/25/20 03/25/20 03:00 03:30 04:00 Temperature 97.0 F Pulse Rate 92 101 92 Respiratory 25 22 22 Rate Blood Pressure 95/69 107/71 105/64 (mmHg) O2 Sat by Pulse 92 92 91 Oximetry 03/25/20 03/25/20 03/25/20 04:30 05:00 05:30 Temperature Pulse Rate 93 98 92 Respiratory 19 28 24 Rate Blood Pressure 106/76 103/64 107/68 (mmHg) O2 Sat by Pulse 92 90 92 Oximetry 03/25/20 06:00 Temperature Pulse Rate 81 Respiratory 21 Rate Blood Pressure 106/69 (mmHg) O2 Sat by Pulse 95 Oximetry Oxygen Devices in Use Now: Nasal Cannula Appearance: wan appearing, appears chronically ill in no acute distress. Eyes: No Scleral Icterus, PERRLA Ears/Nose/Mouth/Throat: Mucous Membranes Moist Neck: Trachea Midline - tracheostomy scar noted, healed. Respiratory: - - Diminished BS RIGHT basilar 1/3-1/2, left lung clear Cardiovascular: - - irregular, fast, no rubs, no murmurs. Abdominal: NL Sounds; No Tenderness; No Distention Extremities: No Edema - s/p L AKA, RLE severe necrosis foot. Skin: - - pale c/w anemia, sternotomy scar and drain sites well healed, stump LLL healing well. Neurological: Alert and Oriented x 3 Lines/Tubes/Other Access: Clean, Dry and Intact Peripheral IV Result Diagrams: 03/25/20 05:53 03/25/20 05:53 Diagnostic Imaging: *[facility]* [place] [address] Fax #: [phone] Transthoracic Echocardiogram Patient: Nicky Moore : 1955 Study Date: 03/25/2020 Age: 64 Gender: F HR: 70 bpm Height: 72 in /182.9 cm BSA: 2.04 m^2 Weight: 179.6 lb /81.6 kg BMI: 24.4 kg/m^2 *Oiler Bander: * Debra Montejo [facility] *Referring Physician: * Arlen Henderson MD *Reading Physician: * Arlen Henderson MD Indications: Atrial Fibrillation. History: Aortic dissection, #28 valsalva graft. Aortic valve replacement, #25 Magna Ease pericardial tissue valve. Left atrial appendage ligation. Right carotid dissection. Peroneal thrombus. Marfans. Mitral valve prolapse. AFIB Atrial fibrillation. Conclusions Summary: - Left ventricle: The cavity size is at the upper limits of normal. Wall thickness is moderately increased. Systolic function is normal. The estimated ejection fraction is 55-60%. - Right ventricle: The cavity size is dilated. Systolic function is normal. - Ventricular septum: Ventricular septal wall motion has a postoperative appearance. - Left atrium: The atrium is severely dilated. - Right atrium: The atrium is severely dilated. - Mitral valve: Moderate prolapse. There is mild to moderate regurgitation. - Aortic valve: There is a normally functioning bioprosthetic valve. There is trace to mild central and paravalvular regurgitation. The mean systolic gradient is 5.0 mm Hg. The LVOT This report is only to be considered final once signed by the Provider(s) as displayed in the "<Electronically Signed by >" field (s). Absence of a signature indicates the report is in a draft status and still needs to be finalized. In the event this document was created by someone other than the signing Provider, the individual initiating the document will be listed in the "Entered by:" or "Dictated by:" sandoval. to aortic valve VTI ratio is 0.5. The valve area by the velocity-time integral method is 1.80 cm^2. The valve area by the peak velocity method is 1.83 cm^2. - Tricuspid valve: There is severe regurgitation. - Aorta: A dissection of the descending aorta is seen. - Ascending aorta: Graft is present. - Pericardium, extracardiac: There is a left pleural effusion. - Pulmonary arteries: Pulmonary artery pressure may be underestimated The peak pressure during systole by Doppler is 30.0 mm Hg. - Inferior vena cava: The vessel is dilated. There is (< 50%) respiratory change in the IVC dimension. - Compared with prior echocardiogram of 03/13/19: Ejection fraction stable, left ventricular hypertrophy prevously noted. Bi-atrial enlargement has increased, right ventricle dilatation is new, prosthetic aortic valve and aortic root graft new, mitral regurgitation has increased from mild, tricuspid regurgitation has increased from trace/mild, no longer see aortic dilatation post graft. Pleural effusion is new. Study data: Transthoracic echocardiogram. Procedure: Transthoracic echocardiography was performed. Image quality was good. Complete 2D, spectral Doppler, and color flow Doppler. Location: ICU Patient status: Inpatient. Patient room number: 2. Rhythm: Normal sinus rhythm. Findings Left ventricle: The cavity size is at the upper limits of normal. Wall thickness is moderately increased. Systolic function is normal. The estimated ejection fraction is 55-60%. Wall motion is normal; there are no regional wall motion abnormalities. Left ventricular diastolic function parameters are indeterminate. Right ventricle: The cavity size is dilated. Systolic function is normal. Ventricular septum: Ventricular septal wall motion has a postoperative appearance. Left atrium: The atrium is severely dilated. Right atrium: The atrium is severely dilated. There is the appearance of a Chiari network. Mitral valve: The leaflets are mildly thickened. Moderate prolapse. There is no evidence of stenosis. There is mild to moderate regurgitation. Aortic valve: There is a normally functioning bioprosthetic valve. Cusp separation is normal. There is trace to mild central and paravalvular regurgitation. Tricuspid valve: The leaflets are normal thickness. Severe trucuspid insufficiency. Patient Name: NICKY MOORE Ordering Physician: Krystian Alvarado MD : 1955 Age: 64 Sex: F Location: PHYSICAL/MEDICAL REHAB UNIT Exam Date: 03/23/20 1039 ADM Status: ADM IN Observation Date/Time: Order Information: CHEST PA & LAT 2 VWS Accession Number: [id number] CPT: 37263 INDICATION: Shortness of breath. History of PE COMPARISON: January 13, 2020 chest radiograph and chest CT TECHNIQUE: Dual-energy PA and lateral views of the chest were obtained. FINDINGS: There are low lung volumes with right basilar airspace opacification. There is a small right pleural effusion. The cardiac silhouette is obscured status post midline sternotomy, CABG and aVR. There is similarly ectatic aorta. A presumed cardiac monitoring device is in place. There are prominent vascular markings. The upper abdominal contents are grossly unremarkable. The osseous structures are grossly unremarkable. IMPRESSION: 1. Obscured cardiac silhouette with postoperative changes and similar aortic ectasia. 2. Small right pleural effusion. 3. Low lung volumes with suspected mild interstitial pulmonary edema and right basilar atelectasis versus infiltrate <Electronically signed by Tima Hendrix MD in [place]> 03/23/201558 Dictated By: Tima Hendrix MD Dictated Date/Time: 03/23/201550 Transcribed Date/Time: 03/23/201550 EKG Data: Monitor: Afib, rates 80's w/sleep. Post CV: NSR 60 bpm, 1st degree AVB Assess/Plan/Problems-Billing Assessment: 64 yo female with PMHx Marfan's, ITP, PAF, urgently transferred to [place] 01/13/2020 for aortic dissection with severe thrombocytopenia. Underwent emergent aortic root replacement, AVR (tissue) and the patient's left atrial appendage sutured. 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 Transfered to [facility] this week, found in afib, rvr 03/24/2020 with CHF and transferred to ICU [facility] for rate control. - Patient Problems (1) Tricuspid insufficiency Comment: New post op. Likely due to PE, PA pressure likely higher than measured. Continue on lasix. This can increase risk of recurrent Afib. (2) Pleural effusion Comment: Moderate, arrived with this. Multifactioral: Hx PE, s/p open heart surgery, MR and TR. At 2 months post op less likely Dresslers, but still in the differential. Follow. Continue diuetics and supportive care. If pleuritic pain, fevers, evidence of inflammation can consider cochicine/tap in the future. (3) Atrial fibrillation Comment: Rate responded to diltiazem overnight. S/p CV this AM and maintaining NSR. Continue Amiodarone 400 mg/day x 5 days unless developes bradycaria, then lower to 200 mg/day Continue metoprolol. Keep Magnesium and Potassium levels in higher ranges of theraputic. LAtrial appendage sewn off, lowers stroke risk and on coumodin for DVT. (4) Hypothyroidism Comment: - Continue levothyroxine at current dose, mild elevation in T3 noted, follow as may change with amiodarone. (5) Marfan's syndrome Comment: 9 weeks post op for aortic dissection. Keep bp controlled with BB and if able in the future resume Cozaar/losartan. (6) Mitral valve prolapse Comment: MR not significantly increased this admission. Continue on metoprolol and lasix. F/u via Cardiology (7) Thrombocytopenia Comment: Platelets currently in normal range. Outpatient f/u with Dr Ordaz. (8) S/P AKA (above knee amputation) Comment: Hopefully can transfer back to [facility] tomorrow. PT and OT ordered (9) Necrotic toes Comment: Has out patient f/u with [facility]. (10) Pulmonary embolism Comment: During [facility] admission, on coumodin. Suspect residual elevation in PA pressure based on RV enlargement and significant tricuspid insufficiency. (11) Anemia Comment: stable, follow. Would recommend discussion with heme prior to transfusion with hx ITP. Counseling and/or Coordination of Care Minutes: 70 minutes.
[2020-03-25] MEDS ORDERED: Furosemide TAB* 20 MG PO SCH (09:00)
--- NOTE | 2020-03-25 09:43 | CARD ---
CC: Dr. Amita Ennis; Dr. Arlen Henderson CARDIOVERSION REPORT: DATE OF PROCEDURE: 03/25/20 PROCEDURE: Electrical cardioversion. PREPROCEDURE DIAGNOSIS: Atrial fibrillation with rapid ventricular rate. POSTPROCEDURE DIAGNOSIS: Atrial fibrillation with rapid ventricular rate. The indications, risks, and benefits were discussed in depth with the patient. She has had her left atrial appendage tied off 2 months ago making stroke risk less. She is on Coumadin for history of pulmonary emboli. Her INR adjusted down as well as 1.6, today it was 1.8 and after discussion with the patient other potential risks versus benefits of the procedure, she was amenable to proceeding. DESCRIPTION OF PROCEDURE: AP patches were applied to the chest wall and a time- out was called. The patient received a total of 2 mg of Versed and 25 mcg of fentanyl throughout the procedure. 150 joules of energy was delivered across the chest wall with successful cardioversion to normal sinus rhythm. She was hemodynamically stable throughout the procedure in recovery. Currently, she is in sinus rhythm at a rate of 65 beats a minute, blood pressure 103/50, oxygen saturation 90%. CONCLUSION: Successful cardioversion from atrial fibrillation to normal sinus rhythm. Complications: None. STATUS: Stable. [id number]/[facility] #: [id number] [facility]ITALNathan
--- NOTE | 2020-03-25 11:31 | ECHO ---
*[facility]* [place] [address] Fax #: [phone] Transthoracic Echocardiogram Patient: Carrie oSto : 1955 Study Date: 03/25/2020 Age: 64 Gender: F HR: 70 bpm Height: 72 in /182.9 cm BSA: 2.04 m^2 Weight: 179.6 lb /81.6 kg BMI: 24.4 kg/m^2 *Receptionist Nurse: Debra Frederick [facility] *Referring Physician: * Arlen Henderson MD *Reading Physician: * Arlen Henderson MD Indications: Atrial Fibrillation. History: Aortic dissection, #28 valsalva graft. Aortic valve replacement, #25 Magna Ease pericardial tissue valve. Left atrial appendage ligation. Right carotid dissection. Peroneal thrombus. Marfans. Mitral valve prolapse. AFIB Atrial fibrillation. Conclusions Summary: - Left ventricle: The cavity size is at the upper limits of normal. Wall thickness is moderately increased. Systolic function is normal. The estimated ejection fraction is 55-60%. - Right ventricle: The cavity size is dilated. Systolic function is normal. - Ventricular septum: Ventricular septal wall motion has a postoperative appearance. - Left atrium: The atrium is severely dilated. - Right atrium: The atrium is severely dilated. - Mitral valve: Moderate prolapse. There is mild to moderate regurgitation. - Aortic valve: There is a normally functioning bioprosthetic valve. There is trace to mild central and paravalvular regurgitation. The mean systolic gradient is 5.0 mm Hg. The LVOT to aortic valve VTI ratio is 0.5. The valve area by the velocity-time integral method is 1.80 cm^2. The valve area by the peak velocity method is 1.83 cm^2. - Tricuspid valve: There is severe regurgitation. - Aorta: A dissection of the descending aorta is seen. - Ascending aorta: Graft is present. - Pericardium, extracardiac: There is a left pleural effusion. - Pulmonary arteries: Pulmonary artery pressure may be underestimated The peak pressure during systole by Doppler is 30.0 mm Hg. - Inferior vena cava: The vessel is dilated. There is (< 50%) respiratory change in the IVC dimension. - Compared with prior echocardiogram of 03/13/19: Ejection fraction stable, left ventricular hypertrophy prevously noted. Bi-atrial enlargement has increased, right ventricle dilatation is new, prosthetic aortic valve and aortic root graft new, mitral regurgitation has increased from mild, tricuspid regurgitation has increased from trace/mild, no longer see aortic dilatation post graft. Pleural effusion is new. Study data: Transthoracic echocardiogram. Procedure: Transthoracic echocardiography was performed. Image quality was good. Complete 2D, spectral Doppler, and color flow Doppler. Location: ICU Patient status: Inpatient. Patient room number: 2. Rhythm: Normal sinus rhythm. Findings Left ventricle: The cavity size is at the upper limits of normal. Wall thickness is moderately increased. Systolic function is normal. The estimated ejection fraction is 55-60%. Wall motion is normal; there are no regional wall motion abnormalities. Left ventricular diastolic function parameters are indeterminate. Right ventricle: The cavity size is dilated. Systolic function is normal. Ventricular septum: Ventricular septal wall motion has a postoperative appearance. Left atrium: The atrium is severely dilated. Right atrium: The atrium is severely dilated. There is the appearance of a Chiari network. Mitral valve: The leaflets are mildly thickened. Moderate prolapse. There is no evidence of stenosis. There is mild to moderate regurgitation. Aortic valve: There is a normally functioning bioprosthetic valve. Cusp separation is normal. There is trace to mild central and paravalvular regurgitation. Tricuspid valve: The leaflets are normal thickness. There is no evidence of stenosis. There is severe regurgitation. Hepatic carmine flow reversal is present Pulmonic valve: The leaflets are normal thickness. There is no evidence of stenosis. There is mild regurgitation. Aorta: Aortic root: The aortic root is appears normal. Ascending aorta: The ascending aorta is appears normal. Graft is present. A dissection of the descending aorta is seen. A4C. Pericardium: There is no significant pericardial effusion. There is a left pleural effusion. Pulmonary arteries: Pulmonary artery pressure may be underestimated Systemic veins: Inferior vena cava: The vessel is dilated. There is (< 50%) respiratory change in the IVC dimension. Measurements Left ventricle Value Ref Aortic valve continued Value Ref RADHA, LAX 5.2 cm 3.8 - 5.2 VTI, S 32.0 cm --------- ESD, LAX 3.5 cm 2.2 - 3.5 Mean grad, S 5.0 mm Hg --------- FS, LAX 32 % 27 - 45 Peak grad, S 12.0 mm Hg --------- PW, ED, LAX (H) 1.5 cm 0.6 - 0.9 LVOT/AV, VTI 0.5 --------- E', lat quinten, TDI 10.6 cm/sec >=10.0 ratio E/e', lat quinten, 8 VERONICA, VTI 1.80 cm^2 ---- ----- TDI LVOT/AV, Vpeak 0.53 --------- E', med quinten, TDI (L) 5.1 cm/sec >=7.0 ratio E/e', med quinten, 16 VERONICA, Vmax 1.83 cm^2 ---- ----- TDI E', avg, TDI 7.9 cm/sec Mitral valve Value Ref E/e', avg, TDI 10 <=14 Peak E 0.82 m/sec - -------- Peak A 0.3 m/sec --------- LVOT Value Ref Decel time 132 ms --------- Diam, S 2.10 cm Peak grad, D 2.7 mm Hg --------- Area 3.5 cm^2 Peak E/A ratio 2.8 --------- Peak sarika, S 0.9 m/sec ERO, PISA 0.07 cm^2 --------- VTI, S 17.0 cm MR vol, PISA 10 ml --------- Peak grad, S 3 mm Hg MR fraction, PISA 14 % --------- Mean grad, S 2 mm Hg SV 59 ml Pulmonic valve Value Ref SV/bsa 29 ml/m^2 Peak v, S 0.42 m/sec --------- Peak grad, S 1.0 mm Hg --------- Ventricular septum Value Ref IVS, ED (H) 1.4 cm 0.6 - 0.9 Tricuspid valve Value Ref TR peak v 2 m/sec <=2.8 Right ventricle Value Ref Peak RV-RA grad, 16 mm Hg --------- RADHA, LAX 3.1 cm S RADHA minor ax, A4C (H) 4.8 cm 1.9 - 3.5 mid Aortic root Value Ref Pressure, S 31 mm Hg Root diam 3.1 cm <4.2 Root max 1.5 cm/m^2 1.4 - 2.2 Left atrium Value Ref diam/bsa, ED AP dim, ES (H) 5.40 cm 2.70 - 3.80 Ascending aorta Value Ref ML dim, A4C 5.6 cm AAo AP diam, S 2.8 cm --------- SI dim, A4C 6.7 cm AAo AP diam/bsa, 1.4 cm/m^2 --------- Vol/bsa, ES, A/L (H) 64 ml/m^2 16 - 34 S Right atrium Value Ref Decending aorta Value Ref SI dim, ES (H) 7.1 cm 3.4 - 5.3 Ranulfo peak sarika 0.52 m/sec --------- ML dim, ES, A4C (H) 5.6 cm 2.6 - 4.4 Estimated RAP 15 mm Hg Pulmonary artery Value Ref Pressure, S 30.0 mm Hg --------- Aortic valve Value Ref Quinten diam, ED 2.0 cm Inferior vena cava Value Ref Peak v, S 1.7 m/sec Diam 2.7 cm --------- Legend: (L) and (H) gretchen values outside specified reference range. Prepared and electronically signed by Arlen Henderson MD 03/25/2020 11:30
[2020-03-25] MEDS: QUEtiapine TAB* 25 MG PO SCH (11:42)
[2020-03-25] MEDS: Calcium/Vitamin D TAB 250/125* TAB PO SCH (11:42)
[2020-03-25] MEDS: Metoprolol Succinate XL TAB* 25 MG PO SCH ×2 (11:42→20:00)
[2020-03-25] MEDS: Amiodarone TAB* 400 MG PO SCH (11:42)
[2020-03-25] MEDS: Aspirin 81 mg CHEW TAB* 81 MG TAB.CHEW PO SCH (11:42)
[2020-03-25] MEDS ORDERED: Warfarin TAB(*) 2 MG PO SCH (17:00)
[2020-03-25] MEDS: traZODone TAB* 50 MG TAB PO SCH (20:01)
[2020-03-25] MEDS: Atorvastatin* 20 MG TAB PO SCH (20:01)
[2020-03-25] MEDS: Melatonin 3 MG TAB PO SCH (20:02)
[2020-03-26] MEDS: Levothyroxine TAB* 100 MCG TAB PO SCH (04:45)
--- NOTE | 2020-03-26 08:13 | PN ---
Subjective Date of Service: 03/26/20 Interval History: The patient had trouble sleeping, room mate up late. Pt slept all day. Does not think breathing significantly changed post CV. Main patient concern was anxiety and potential impact it is having on health, potential for putting in atrial fibrillation. Past Medical History: Unchanged from Admission Objective Active Medications: Acetaminophen (Tylenol Tab*) 650 mg PO Q6H PRN PRN Reason: PAIN - MILD Amiodarone HCl (Cordarone Tab*) 400 mg PO DAILY [facility] Last Admin: 03/25/20 11:42 Dose: 400 mg Aspirin (Aspirin 81 Mg Chew Tab*) 81 mg PO DAILY [facility] Last Admin: 03/25/20 11:42 Dose: 81 mg Atorvastatin Calcium (Lipitor*) 20 mg PO 2100 [facility] Last Admin: 03/25/20 20:01 Dose: 20 mg Calcium/Vitamin D (Oscal D Tab 250/125*) 1 tab PO DAILY [facility] Last Admin: 03/25/20 11:42 Dose: 1 tab Docusate Sodium (Colace Cap*) 100 mg PO DAILY PRN PRN Reason: CONSTIPATION Furosemide (Lasix Tab*) 20 mg PO DAILY [facility] Last Admin: 03/25/20 11:42 Dose: 20 mg Levothyroxine Sodium (Synthroid Tab*) 100 mcg PO DAILY@0600 [facility] Last Admin: 03/26/20 04:45 Dose: 100 mcg Melatonin (Melatonin) 3 mg PO BEDTIME [facility] Last Admin: 03/25/20 20:02 Dose: 3 mg Metoprolol Succinate (Toprol Xl Tab*) 25 mg PO BID [facility] Last Admin: 03/25/20 20:00 Dose: 25 mg Quetiapine Fumarate (Seroquel Tab*) 25 mg PO DAILY [facility] Last Admin: 03/25/20 11:42 Dose: 25 mg Temazepam (Restoril Cap*) 15 mg PO BEDTIME PRN PRN Reason: INSOMNIA Last Admin: 03/25/20 01:20 Dose: 15 mg Trazodone HCl (Desyrel Tab*) 50 mg PO BEDTIME [facility] Last Admin: 03/25/20 20:01 Dose: 50 mg Warfarin Sodium (Coumadin Tab(*)) 2 mg PO DAILY@1700 [facility]; Protocol Last Admin: 03/25/20 17:08 Dose: 2 mg Vital Signs - 8 hr 03/26/20 03:05 Temperature 97.3 F Pulse Rate 70 Respiratory 18 Rate Blood Pressure 120/60 (mmHg) O2 Sat by Pulse 95 Oximetry Oxygen Devices in Use Now: Nasal Cannula Appearance: Older woman, lying 30 degrees, awoke from sleep, comfortable appearing, appears chronically ill. Eyes: No Scleral Icterus, PERRLA Ears/Nose/Mouth/Throat: Mucous Membranes Moist Neck: NL Appearance and Movements; NL JVP - JVP no longer bulging as was pre CV. Respiratory: Symmetrical Chest Expansion and Respiratory Effort - Mildly diminished left base, markedly diminished R base and brochial BS mid lung R. Cardiovascular: RRR - 2-3/6 SM LLSB Abdominal: NL Sounds; No Tenderness; No Distention, No Hepatosplenomegaly Extremities: - - trace to mild edema RLE mid leg, necrosis of foot noted, boot on, foot not fully examined. Skin: No Rash or Ulcers - necrosis of R foot grossly stable. Midline sternotomy scar healing well. Neurological: Alert and Oriented x 3 - Able to roll over well in bed. Lines/Tubes/Other Access: Clean, Dry and Intact Peripheral IV Result Diagrams: 03/25/20 05:53 03/25/20 05:53 Diagnostic Imaging: *[facility]* [place] [address] Fax #: [phone] Transthoracic Echocardiogram Patient: Nicky Moore : 1955 Study Date: 03/25/2020 Age: 64 Gender: F HR: 70 bpm Height: 72 in /182.9 cm BSA: 2.04 m^2 Weight: 179.6 lb /81.6 kg BMI: 24.4 kg/m^2 *[employer]: * Debra Montejo [facility] *Referring Physician: * Arlen Henderson MD *Reading Physician: * Arlen Henderson MD Indications: Atrial Fibrillation. History: Aortic dissection, #28 valsalva graft. Aortic valve replacement, #25 Magna Ease pericardial tissue valve. Left atrial appendage ligation. Right carotid dissection. Peroneal thrombus. Marfans. Mitral valve prolapse. AFIB Atrial fibrillation. Conclusions Summary: - Left ventricle: The cavity size is at the upper limits of normal. Wall thickness is moderately increased. Systolic function is normal. The estimated ejection fraction is 55-60%. - Right ventricle: The cavity size is dilated. Systolic function is normal. - Ventricular septum: Ventricular septal wall motion has a postoperative appearance. - Left atrium: The atrium is severely dilated. - Right atrium: The atrium is severely dilated. - Mitral valve: Moderate prolapse. There is mild to moderate regurgitation. - Aortic valve: There is a normally functioning bioprosthetic valve. There is trace to mild central and paravalvular regurgitation. The mean systolic gradient is 5.0 mm Hg. The LVOT This report is only to be considered final once signed by the Provider(s) as displayed in the "<Electronically Signed by >" field (s). Absence of a signature indicates the report is in a draft status and still needs to be finalized. In the event this document was created by someone other than the signing Provider, the individual initiating the document will be listed in the "Entered by:" or "Dictated by:" sandoval. to aortic valve VTI ratio is 0.5. The valve area by the velocity-time integral method is 1.80 cm^2. The valve area by the peak velocity method is 1.83 cm^2. - Tricuspid valve: There is severe regurgitation. - Aorta: A dissection of the descending aorta is seen. - Ascending aorta: Graft is present. - Pericardium, extracardiac: There is a left pleural effusion. - Pulmonary arteries: Pulmonary artery pressure may be underestimated The peak pressure during systole by Doppler is 30.0 mm Hg. - Inferior vena cava: The vessel is dilated. There is (< 50%) respiratory change in the IVC dimension. - Compared with prior echocardiogram of 03/13/19: Ejection fraction stable, left ventricular hypertrophy prevously noted. Bi-atrial enlargement has increased, right ventricle dilatation is new, prosthetic aortic valve and aortic root graft new, mitral regurgitation has increased from mild, tricuspid regurgitation has increased from trace/mild, no longer see aortic dilatation post graft. Pleural effusion is new. Study data: Transthoracic echocardiogram. Procedure: Transthoracic echocardiography was performed. Image quality was good. Complete 2D, spectral Doppler, and color flow Doppler. Location: ICU Patient status: Inpatient. Patient room number: 2. Rhythm: Normal sinus rhythm. Findings Left ventricle: The cavity size is at the upper limits of normal. Wall thickness is moderately increased. Systolic function is normal. The estimated ejection fraction is 55-60%. Wall motion is normal; there are no regional wall motion abnormalities. Left ventricular diastolic function parameters are indeterminate. Right ventricle: The cavity size is dilated. Systolic function is normal. Ventricular septum: Ventricular septal wall motion has a postoperative appearance. Left atrium: The atrium is severely dilated. Right atrium: The atrium is severely dilated. There is the appearance of a Chiari network. Mitral valve: The leaflets are mildly thickened. Moderate prolapse. There is no evidence of stenosis. There is mild to moderate regurgitation. Aortic valve: There is a normally functioning bioprosthetic valve. Cusp separation is normal. There is trace to mild central and paravalvular regurgitation. Tricuspid valve: The leaflets are normal thickness. Severe trucuspid insufficiency. Patient Name: NICKY MOORE Ordering Physician: Krystian Alvarado MD : 1955 Age: 64 Sex: F Location: PHYSICAL/MEDICAL REHAB UNIT Exam Date: 03/23/20 1039 ADM Status: ADM IN Observation Date/Time: Order Information: CHEST PA & LAT 2 VWS Accession Number: [id number] CPT: 37952 INDICATION: Shortness of breath. History of PE COMPARISON: January 13, 2020 chest radiograph and chest CT TECHNIQUE: Dual-energy PA and lateral views of the chest were obtained. FINDINGS: There are low lung volumes with right basilar airspace opacification. There is a small right pleural effusion. The cardiac silhouette is obscured status post midline sternotomy, CABG and aVR. There is similarly ectatic aorta. A presumed cardiac monitoring device is in place. There are prominent vascular markings. The upper abdominal contents are grossly unremarkable. The osseous structures are grossly unremarkable. IMPRESSION: 1. Obscured cardiac silhouette with postoperative changes and similar aortic ectasia. 2. Small right pleural effusion. 3. Low lung volumes with suspected mild interstitial pulmonary edema and right basilar atelectasis versus infiltrate <Electronically signed by Tima Hendrix MD in [place]> 03/23/201558 Dictated By: Tima Hendrix MD Dictated Date/Time: 03/23/201550 Transcribed Date/Time: 03/23/201550 EKG Data: Monitor 03/24/2020-01/25/2020: Afib, rates 80's w/sleep. Post CV 03/25/2020: NSR 60 bpm, 1st degree AVB Monitor overnight 03/25-03/26 2020: NSR, PAC's. Assess/Plan/Problems-Billing Assessment: 64 yo female with PMHx Marfan's, ITP, PAF, urgently transferred to [facility] 01/13/2020 for aortic dissection with severe thrombocytopenia. Underwent emergent aortic root replacement, AVR (tissue) and the patient's left atrial appendage sutured. 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 Transfered to [facility] this week, found in afib, rvr 03/24/2020 with CHF and transferred to ICU [facility] for rate control. - Patient Problems (1) Tricuspid insufficiency Comment: New post op. Likely due to PE, PA pressure likely higher than measured. Continue on lasix. This can increase risk of recurrent Afib. Increasing lasix to 40 mg daily (from 20 mg), may need to go back up to 60 mg/ day if tolerated wrt BP. RV will need adiquate preload for optimum contractility. (2) Pleural effusion Comment: Moderate, arrived with this. Multifactioral: Hx PE, s/p open heart surgery, MR and TR. At 2 months post op less likely Dresslers, but still in the differential. Follow. Increasing diuetics as above and supportive care. If Dresslers (elevated ESR/CRP w/o other reason) then Colchicine 0.6 mg daily or BID as tolerated to start. If pleuritic pain then NAIDs too, but would like to avoid these if able. If pleuritic pain, fevers, evidence of inflammation can consider cochicine/tap in the future. (3) Atrial fibrillation Comment: S/p electrical CV and staying in NSR. Continue Amiodarone 400 mg/day x 5 days unless developes bradycaria, then lower to 200 mg/day Continue metoprolol. Keep Magnesium and Potassium levels in higher ranges of theraputic. Daily INR's, expecting INR to rise on amiodarone. Signs of CHF have improved post CV even if pt not appreciating improved. LAtrial appendage sewn off, lowers stroke risk and on coumodin for DVT. (4) Hypothyroidism Comment: - Continue levothyroxine at current dose, mild elevation in T3 noted, follow as may change with amiodarone. (5) Marfan's syndrome Comment: 9 weeks post op for aortic dissection. Keep bp controlled with BB and if able in the future resume Cozaar/losartan. (6) Mitral valve prolapse Comment: MR not significantly increased this admission. Continue on metoprolol and lasix. F/u via Cardiology (7) Thrombocytopenia Comment: Platelets currently in normal range. Outpatient f/u with Dr Ordaz. (8) S/P AKA (above knee amputation) Comment: PMRU transfer today if able. PT and OT ordered (9) Necrotic toes Comment: Has out patient f/u with [facility]. (10) Pulmonary embolism Comment: During [facility] admission, on coumodin. Suspect residual elevation in PA pressure based on RV enlargement and significant tricuspid insufficiency. (11) Anemia Comment: stable, follow. Would recommend discussion with heme prior to transfusion with hx ITP. (12) Anxiety about health Comment: Appropriate, disscussed with the patient, reassured that I felt her PAF was due to medical issues not anxiety. Discussed anxiety might be situational depression. Additional f/u when in PMRU, hoping more resources there.
[2020-03-26 08:48] LABS: INR 2.55 (0.82-1.09)
[2020-03-26] MEDS ORDERED: Furosemide TAB* 40 MG PO SCH (09:00)
[2020-03-26] MEDS: Calcium/Vitamin D TAB 250/125* TAB PO SCH (09:32)
[2020-03-26] MEDS: QUEtiapine TAB* 25 MG PO SCH (09:32)
[2020-03-26] MEDS: Metoprolol Succinate XL TAB* 25 MG PO SCH (09:32)
[2020-03-26] MEDS: Aspirin 81 mg CHEW TAB* 81 MG TAB.CHEW PO SCH (09:32)
[2020-03-26] MEDS: Amiodarone TAB* 400 MG PO SCH (09:33)
[2020-03-26 14:04] VITALS: BP 113/68
--- NOTE | 2020-03-26 19:59 | DS ---
CC: Dr. Amita Ennis; Dr. Krystian Alvarado* DISCHARGE SUMMARY: DATE OF ADMISSION: 03/24/20 DATE OF DISCHARGE: 03/26/20 HISTORY OF PRESENT ILLNESS: Carrie is a 64-year-old woman with Marfan syndrome and paroxysmal AFib. The patient had been admitted to [facility] on 03/23/20 following over 2 month admission at [facility] where she was transferred for acute aortic dissection, requiring emergent surgery. See my admission H and P for details that she underwent emergent surgery with aortic valve replacement and aortic root replacement. She was very thrombocytopenic at the time with her history of ITP. Complications included pulmonary embolism , aspiration pneumonia, falls, and ischemic limbs. She underwent a left BKA on 03/05/20. The patient had had a paroxysmal AFib at some point during her stay, had a course of amiodarone. The patient was discharged on 03/23/20, reported in normal sinus rhythm on beta - nelsy and Coumadin. On 03/24/20, the patient's pulse was rapid and erratic and EKG showed her to be in paroxysmal AFib. She was developing congestive heart failure and was admitted to the inpatient service to the ICU for diltiazem drip for rate control. Additionally, the patient was given magnesium and potassium repletion and the patient had amiodarone resumed. On 03/25/20, the patient underwent electrical cardioversion successfully. She was observed overnight on telemetry, had maintained sinus rhythm and the decision was made to transfer her back to [facility] and so she can undergo additional rehab. An echocardiogram performed after cardioversion on 03/24/20 performed showing ejection fraction of 55% to 60%, right ventricular dilatation and normal right ventricular function, prosthetic aortic valve with good function, moderate mitral prolapse and mild to moderate mitral insufficiency and severe tricuspid insufficiency. PA pressure not able to accurately evaluated. PROBLEM LIST: 1. Marfan's disease, status post carotid dissection, status post aortic dissection. 2. ITP, status post splenectomy distantly and more recently Nplate and steroids. 3. Paroxysmal AFib. Broke through all antiarrhythmics except amiodarone. Ablation not able to be done due to recurrent ITP. 4. Status post pulmonary embolism. 5. Ischemic limbs from her aortic dissection with necrotic right lower extremity ongoing, status post left AKA. 6. Chronic Coumadin therapy for DVT. 7. Anemia. 8. Mitral valve prolapse with mitral insufficiency. 9. Tricuspid insufficiency. 10. Hypothyroid disease. PHYSICAL EXAMINATION: Exam on the day of discharge, the patient is an older woman, lying at 30 degrees, appearing comfortable, chronically ill, a bit depressed. Psychologically, pleasant and cooperative. Neurologically, awake, alert and oriented to person and place. Follows commands well. No growth sensory or motor deficits. Skin: Warm, dry, pale consistent with anemia. Right lower extremity has black dry necrosis of the toes, foot, going to the heel, boot on. Neck: Without increased JVP. Breath sounds diminished in the right lung field the senior living up to the lungs. Left lung shows good expansion except at the very base, no wheezing. Coronary: S1, S2, regular. 2 to 3/6 blowing systolic murmur heard at the left lower sternal border. Abdomen: Overweight. Active bowel sounds and soft. Right lower extremity free of edema. DIAGNOSTIC STUDIES/LABORATORY DATA: Studies: Echo as above. A 12-lead ECG postcardioversion on 03/25/20 shows normal sinus rhythm 63 beats a minute, QRS axis +45, normal AV and IV conduction times, prominent R-wave progression. Mild nonspecific ST changes. Labs: From 03/25/20, white count 11.5, hematocrit 26, platelets 348. INR 1.81 on 03/25/20 and 2.55 on 03/26/20. Sodium 135, potassium 4.4, chloride 102, BUN 18, creatinine 0.85, glucose 123. AST 56, ALT 47. Free T4 of 1.2, TSH 3.68. HOSPITAL COURSE: In summary, Carrie Soto is a 64-year-old woman with Marfan's disease, ITP, paroxysmal AFib, who was recently admitted to [facility] following an over 2 month admission for urgent repair of dissection of ascending aorta with additional aortic valve replacement with multiple complications as above. The patient was transferred to the floor for paroxysmal AFib with congestive heart failure, was reloaded with amiodarone and cardioverted (left atrial appendage tied off, INR is therapeutic in [place], and slight dip here) and maintained normal sinus rhythm overnight. She was transferred to the floor on her current medications: 1. Tylenol p.r.n. 2. Amiodarone 400 mg a day for 5 days, then 200 mg a day. 3. Aspirin 81 mg a day. 4. Lipitor 20 mg a day. 5. Calcium and vitamin D 250/125 one tab daily. 6. Colace 100 mg p.r.n. constipation. 7. Lasix 40 mg a day. 8. Synthroid 100 mcg a day. 9. Melatonin 3 mg q.h.s. 10. Metoprolol 25 mg b.i.d. 11. Seroquel 25 mg a day. 12. Restoril 15 mg p.r.n. insomnia. 13. Trazodone 50 mg q.h.s. 14. Coumadin 2 mg a day. [facility] kindly agreed to accept the patient back and the hospitalist will continue to follow for consultation in [facility]. [id number]/[facility] #: [id number] MTDNathan
== END 2020-03-26 11:28 ==
LOC: INTOOBSV 17:51 → ICU 17:51 → MEDTELE 03-25 14:11
PROVIDERS: ADMIT Specialist; ATTEND Specialist
DX: I48.0 Paroxysmal atrial fibrillation (principal); Q87.40 Marfan syndrome, unspecified; D69.3 Immune thrombocytopenic purpura; D64.9 Anemia, unspecified; E03.9 Hypothyroidism, unspecified; I07.1 Rheumatic tricuspid insufficiency; D69.6 Thrombocytopenia, unspecified; F41.9 Anxiety disorder, unspecified; Z95.2 Presence of prosthetic heart valve; Z79.82 Long term (current) use of aspirin; Z86.718 Personal history of other venous thrombosis and embolism; Z79.01 Long term (current) use of anticoagulants; Z86.711 Personal history of pulmonary embolism; Z79.899 Other long term (current) drug therapy; R94.31 Abnormal electrocardiogram [ECG] [EKG]; Z79.890 Hormone replacement therapy
CPT/HCPCS: 36415; 80053; 83735; 84439; 84443; 85025; 85610; 93005; 93306; 96374; 96375; A9270-GY; G0378; J2250; J3010; J3475; J3490

== ENCOUNTER 2020-04-25 09:15 | Inpatient (IN) ==
[2020-04-25] MEDS ORDERED: Magnesium Hydroxide LIQ 30 ML UDC PO PRN (16:58)
[2020-04-25] MEDS ORDERED: Senna TAB 8.6 mg TAB PO PRN (16:58)
[2020-04-25] MEDS: Calcium/Vitamin D TAB 250/125 TAB PO SCH (20:46)
[2020-04-25] MEDS: Enoxaparin 60 MG/0.6 ML SYR SUBCUT SCH (20:47)
[2020-04-26 05:39] LABS: INR 2.48 (0.82-1.09)
[2020-04-26] MEDS: Calcium/Vitamin D TAB 250/125 TAB PO SCH ×2 (09:46→21:40)
[2020-04-26] MEDS: Aspirin EC 81 mg TAB.EC (enteric coated) PO SCH (09:47)
[2020-04-26] MEDS: Enoxaparin 60 MG/0.6 ML SYR SUBCUT SCH (09:47)
[2020-04-26] MEDS: Polyethylene Glycol 3350 17 GM PACKET PO SCH (09:52)
[2020-04-26] MEDS: Selenium 200 mcg TAB (NF) PO SCH (09:54)
[2020-04-26] MEDS: Ondansetron ODT 4 mg TAB 4 MG TAB PO PRN (19:29)
[2020-04-27 05:57] LABS: Hematocrit 32 % (35-47); Hemoglobin 9.6 g/dL (12.0-16.0); Mean Corpuscular HGB Conc 30 g/dL (31-36); Mean Corpuscular Hemoglobin 25 pg (27-31); Mean Corpuscular Volume 82 fL (80-97); Mean Platelet Volume 8.3 fL (7.4-10.4); Platelet Count 246 10^3/uL (150-450); Red Blood Count 3.86 10^6 /uL (3.70-4.87); Red Cell Distribution Width 22 % (10-15); White Blood Count 8.3 10^3/uL (3.5-10.8)
[2020-04-27 06:07] LABS: INR 3.26 (0.82-1.09)
[2020-04-27 06:16] LABS: Albumin 2.9 g/dL (3.2-5.2); BUN/Creatinine Ratio 30.4 (8-20); Calcium 9.3 mg/dL (8.6-10.3); EGFR Non-African American 85.9 (>60); Globulin 2.9 g/dL (2-4); Total Bilirubin 0.8 mg/dL (0.2-1.0); Total Protein 5.8 g/dL (6.4-8.9)
[2020-04-27 06:30] LABS: ABS Basophils 0.1 10^3/ul (0-0.2); ABS Eosinophils 0.1 10^3/ul (0-0.6); ABS Lymphocytes 0.8 10^3/ul (1.0-4.8); ABS Monocytes 0.9 10^3/ul (0-0.8); ABS Neutrophils 6.3 10^3/ul (1.5-7.7); ABS Nucleated RBC 0.4 10^3/ul; Eosinophil % 1.5 %; Lymphocyte % 9.7 %; Nucleated Red Blood Cells % 5.3; Polychromasia 2+
[2020-04-27] MEDS: Polyethylene Glycol 3350 17 GM PACKET PO SCH (09:51)
[2020-04-27] MEDS: Calcium/Vitamin D TAB 250/125 TAB PO SCH ×2 (09:53→20:53)
[2020-04-27] MEDS: Aspirin EC 81 mg TAB.EC (enteric coated) PO SCH (09:53)
[2020-04-27] MEDS: Selenium 200 mcg TAB (NF) PO SCH (10:46)
[2020-04-28] MEDS: Aspirin EC 81 mg TAB.EC (enteric coated) PO SCH (09:16)
[2020-04-28] MEDS: Polyethylene Glycol 3350 17 GM PACKET PO SCH (09:17)
[2020-04-28] MEDS: Calcium/Vitamin D TAB 250/125 TAB PO SCH ×2 (09:17→21:16)
[2020-04-28] MEDS: Selenium 200 mcg TAB (NF) PO SCH (09:25)
[2020-04-28 09:57] LABS: INR 3.21 (0.82-1.09)
[2020-04-29 09:06] LABS: INR 2.8 (0.82-1.09)
[2020-04-29] MEDS: Polyethylene Glycol 3350 17 GM PACKET PO SCH (09:20)
[2020-04-29] MEDS: Calcium/Vitamin D TAB 250/125 TAB PO SCH ×2 (09:20→21:17)
[2020-04-29] MEDS: Aspirin EC 81 mg TAB.EC (enteric coated) PO SCH (09:20)
[2020-04-29] MEDS: Selenium 200 mcg TAB (NF) PO SCH (09:21)
[2020-04-30 06:05] LABS: INR 3.03 (0.82-1.09)
[2020-04-30] MEDS: Polyethylene Glycol 3350 17 GM PACKET PO SCH (08:14)
[2020-04-30] MEDS: Aspirin EC 81 mg TAB.EC (enteric coated) PO SCH (08:16)
[2020-04-30] MEDS: Calcium/Vitamin D TAB 250/125 TAB PO SCH ×2 (08:16→20:53)
[2020-04-30] MEDS: Selenium 200 mcg TAB (NF) PO SCH (08:50)
[2020-05-01] MEDS: Aspirin EC 81 mg TAB.EC (enteric coated) PO SCH (07:42)
[2020-05-01] MEDS: Calcium/Vitamin D TAB 250/125 TAB PO SCH ×2 (07:42→21:51)
[2020-05-01] MEDS: Selenium 200 mcg TAB (NF) PO SCH (07:43)
[2020-05-01] MEDS: Polyethylene Glycol 3350 17 GM PACKET PO SCH (10:03)
[2020-05-02 06:11] LABS: INR 3.64 (0.82-1.09)
[2020-05-02] MEDS: Aspirin EC 81 mg TAB.EC (enteric coated) PO SCH (08:38)
[2020-05-02] MEDS: Calcium/Vitamin D TAB 250/125 TAB PO SCH ×2 (08:39→21:11)
[2020-05-02] MEDS: Selenium 200 mcg TAB (NF) PO SCH (08:43)
[2020-05-02] MEDS: Polyethylene Glycol 3350 17 GM PACKET PO SCH (08:43)
[2020-05-02] MEDS: Dextran 70/Hypromellose Tears Eye Drops 15 ml BTL (for Artificials Tears) BOTH EYES PRN (21:58)
[2020-05-03 04:37] LABS: INR 3.36 (0.82-1.09)
[2020-05-03] MEDS: Polyethylene Glycol 3350 17 GM PACKET PO SCH (09:33)
[2020-05-03] MEDS: Calcium/Vitamin D TAB 250/125 TAB PO SCH ×2 (09:34→21:05)
[2020-05-03] MEDS: Aspirin EC 81 mg TAB.EC (enteric coated) PO SCH (09:34)
[2020-05-03] MEDS: Selenium 200 mcg TAB (NF) PO SCH (09:36)
[2020-05-03] MEDS: Dextran 70/Hypromellose Tears Eye Drops 15 ml BTL (for Artificials Tears) BOTH EYES PRN (21:06)
[2020-05-04 07:25] LABS: INR 2.66 (0.82-1.09)
[2020-05-04 07:26] LABS: Albumin 2.9 g/dL (3.2-5.2); BUN/Creatinine Ratio 25.9 (8-20); Hematocrit 36 % (35-47); Hemoglobin 10.8 g/dL (12.0-16.0); Mean Corpuscular HGB Conc 30 g/dL (31-36); Mean Corpuscular Hemoglobin 25 pg (27-31); Mean Corpuscular Volume 83 fL (80-97); Mean Platelet Volume 8.7 fL (7.4-10.4); Platelet Count 186 10^3/uL (150-450); Potassium 3.8 mmol/L (3.5-5.0); Red Blood Count 4.28 10^6 /uL (3.70-4.87); Red Cell Distribution Width 27 % (10-15); Total Bilirubin 0.7 mg/dL (0.2-1.0); Total Protein 5.9 g/dL (6.4-8.9); White Blood Count 7.2 10^3/uL (3.5-10.8)
[2020-05-04 07:43] LABS: ABS Basophils 0.2 10^3/ul (0-0.2); ABS Eosinophils 0.1 10^3/ul (0-0.6); ABS Lymphocytes 1.1 10^3/ul (1.0-4.8); ABS Monocytes 0.8 10^3/ul (0-0.8); Eosinophil % 1.4 %; Lymphocyte % 15.2 %; Nucleated Red Blood Cells % 0.4
[2020-05-04 07:46] LABS: Polychromasia 1+
[2020-05-04] MEDS: Calcium/Vitamin D TAB 250/125 TAB PO SCH ×2 (08:35→20:22)
[2020-05-04] MEDS: Aspirin EC 81 mg TAB.EC (enteric coated) PO SCH (08:35)
[2020-05-04] MEDS: Polyethylene Glycol 3350 17 GM PACKET PO SCH (08:35)
[2020-05-04] MEDS: Selenium 200 mcg TAB (NF) PO SCH (08:58)
[2020-05-04] MEDS: Dextran 70/Hypromellose Tears Eye Drops 15 ml BTL (for Artificials Tears) BOTH EYES PRN ×2 (09:06→20:21)
[2020-05-04] MEDS: Al Hydrox/Mg Hydrox/Simet LIQ 30 ML UDC PO PRN (22:35)
[2020-05-05] MEDS: Ondansetron ODT 4 mg TAB 4 MG TAB PO PRN (08:38)
[2020-05-05] MEDS: Aspirin EC 81 mg TAB.EC (enteric coated) PO SCH (10:37)
[2020-05-05] MEDS: Calcium/Vitamin D TAB 250/125 TAB PO SCH ×2 (10:37→20:56)
[2020-05-05] MEDS: Selenium 200 mcg TAB (NF) PO SCH (10:41)
[2020-05-05] MEDS: Polyethylene Glycol 3350 17 GM PACKET PO SCH (10:41)
[2020-05-05] MEDS: Dextran 70/Hypromellose Tears Eye Drops 15 ml BTL (for Artificials Tears) BOTH EYES PRN (19:58)
[2020-05-06] MEDS: Ondansetron ODT 4 mg TAB 4 MG TAB PO PRN ×2 (08:30→12:39)
[2020-05-06] MEDS: Aspirin EC 81 mg TAB.EC (enteric coated) PO SCH (09:31)
[2020-05-06] MEDS: Calcium/Vitamin D TAB 250/125 TAB PO SCH ×2 (09:31→21:46)
[2020-05-06] MEDS: Selenium 200 mcg TAB (NF) PO SCH (09:33)
[2020-05-06] MEDS: Polyethylene Glycol 3350 17 GM PACKET PO SCH (09:33)
[2020-05-07 06:01] LABS: INR 2.91 (0.82-1.09)
[2020-05-07] MEDS: Ondansetron ODT 4 mg TAB 4 MG TAB PO PRN ×2 (07:56→17:38)
[2020-05-07] MEDS: Polyethylene Glycol 3350 17 GM PACKET PO SCH (09:19)
[2020-05-07] MEDS: Aspirin EC 81 mg TAB.EC (enteric coated) PO SCH (09:20)
[2020-05-07] MEDS: Calcium/Vitamin D TAB 250/125 TAB PO SCH ×2 (09:21→21:37)
[2020-05-07] MEDS: Dextran 70/Hypromellose Tears Eye Drops 15 ml BTL (for Artificials Tears) BOTH EYES PRN ×3 (09:21→21:39)
[2020-05-07] MEDS: Selenium 200 mcg TAB (NF) PO SCH (09:21)
[2020-05-08] MEDS: Ondansetron ODT 4 mg TAB 4 MG TAB PO PRN ×2 (09:21→18:10)
[2020-05-08] MEDS: Aspirin EC 81 mg TAB.EC (enteric coated) PO SCH (11:08)
[2020-05-08] MEDS: Selenium 200 mcg TAB (NF) PO SCH (11:08)
[2020-05-08] MEDS: Calcium/Vitamin D TAB 250/125 TAB PO SCH ×2 (11:08→20:52)
[2020-05-08] MEDS: Polyethylene Glycol 3350 17 GM PACKET PO SCH (11:10)
[2020-05-09 06:57] LABS: INR 2.8 (0.82-1.09)
[2020-05-09] MEDS: Selenium 200 mcg TAB (NF) PO SCH ×2 (10:30→11:13)
[2020-05-09] MEDS: Calcium/Vitamin D TAB 250/125 TAB PO SCH ×2 (11:10→21:27)
[2020-05-09] MEDS: Aspirin EC 81 mg TAB.EC (enteric coated) PO SCH (11:11)
[2020-05-09] MEDS: Polyethylene Glycol 3350 17 GM PACKET PO SCH (11:12)
[2020-05-09] MEDS: Dextran 70/Hypromellose Tears Eye Drops 15 ml BTL (for Artificials Tears) BOTH EYES PRN (21:28)
[2020-05-10] MEDS: Polyethylene Glycol 3350 17 GM PACKET PO SCH (10:27)
[2020-05-10] MEDS: Aspirin EC 81 mg TAB.EC (enteric coated) PO SCH (10:27)
[2020-05-10] MEDS: Calcium/Vitamin D TAB 250/125 TAB PO SCH ×2 (10:27→21:10)
[2020-05-10] MEDS: Dextran 70/Hypromellose Tears Eye Drops 15 ml BTL (for Artificials Tears) BOTH EYES PRN (21:11)
[2020-05-11 05:35] LABS: INR 3.3 (0.82-1.09)
[2020-05-11 05:36] LABS: Hematocrit 37 % (35-47); Hemoglobin 11.3 g/dL (12.0-16.0); Mean Corpuscular HGB Conc 31 g/dL (31-36); Mean Corpuscular Hemoglobin 26 pg (27-31); Mean Corpuscular Volume 83 fL (80-97); Mean Platelet Volume 8.8 fL (7.4-10.4); Platelet Count 148 10^3/uL (150-450); Red Cell Distribution Width 27 % (10-15); White Blood Count 6.8 10^3/uL (3.5-10.8)
[2020-05-11 05:49] LABS: Albumin 2.9 g/dL (3.2-5.2); BUN/Creatinine Ratio 25.4 (8-20); Calcium 8.6 mg/dL (8.6-10.3); EGFR African American 100.6 (>60); EGFR Non-African American 83.1 (>60); Globulin 2.9 g/dL (2-4); Potassium 3.9 mmol/L (3.5-5.0); Total Bilirubin 0.7 mg/dL (0.2-1.0); Total Protein 5.8 g/dL (6.4-8.9)
[2020-05-11 05:53] LABS: ABS Basophils 0.3 10^3/ul (0-0.2); ABS Eosinophils 0.1 10^3/ul (0-0.6); ABS Lymphocytes 2.2 10^3/ul (1.0-4.8); ABS Monocytes 0.7 10^3/ul (0-0.8); ABS Neutrophils 3.7 10^3/ul (1.5-7.7); ABS Nucleated RBC 0.1 10^3/ul; Lymphocyte % 30.9 %; Nucleated Red Blood Cells % 1.9
[2020-05-11] MEDS: Calcium/Vitamin D TAB 250/125 TAB PO SCH ×2 (08:17→21:46)
[2020-05-11] MEDS: Aspirin EC 81 mg TAB.EC (enteric coated) PO SCH (08:17)
[2020-05-11] MEDS: Polyethylene Glycol 3350 17 GM PACKET PO SCH (08:18)
[2020-05-11] MEDS: Selenium 200 mcg TAB (NF) PO SCH (08:19)
[2020-05-11] MEDS: Ondansetron ODT 4 mg TAB 4 MG TAB PO PRN ×2 (14:33→19:59)
[2020-05-11] MEDS: Dextran 70/Hypromellose Tears Eye Drops 15 ml BTL (for Artificials Tears) BOTH EYES PRN (21:46)
[2020-05-12] MEDS: Aspirin EC 81 mg TAB.EC (enteric coated) PO SCH (09:27)
[2020-05-12] MEDS: Calcium/Vitamin D TAB 250/125 TAB PO SCH ×2 (09:27→21:01)
[2020-05-12] MEDS: Polyethylene Glycol 3350 17 GM PACKET PO SCH (09:28)
[2020-05-12] MEDS: Selenium 200 mcg TAB (NF) PO SCH (09:29)
[2020-05-12] MEDS: Dextran 70/Hypromellose Tears Eye Drops 15 ml BTL (for Artificials Tears) BOTH EYES PRN (21:03)
[2020-05-13] MEDS: Polyethylene Glycol 3350 17 GM PACKET PO SCH (08:22)
[2020-05-13] MEDS: Calcium/Vitamin D TAB 250/125 TAB PO SCH ×2 (08:25→22:01)
[2020-05-13] MEDS: Aspirin EC 81 mg TAB.EC (enteric coated) PO SCH (08:25)
[2020-05-13] MEDS: Selenium 200 mcg TAB (NF) PO SCH (08:25)
[2020-05-14 06:40] LABS: INR 2.94 (0.82-1.09)
[2020-05-14] MEDS: Polyethylene Glycol 3350 17 GM PACKET PO SCH (08:41)
[2020-05-14] MEDS: Calcium/Vitamin D TAB 250/125 TAB PO SCH ×2 (08:41→21:37)
[2020-05-14] MEDS: Aspirin EC 81 mg TAB.EC (enteric coated) PO SCH (08:42)
[2020-05-14] MEDS: Selenium 200 mcg TAB (NF) PO SCH (08:42)
[2020-05-14] MEDS: Hemorrhoidal OINT 1 TUBE PR PRN ×2 (08:55→11:21)
[2020-05-15] MEDS: Aspirin EC 81 mg TAB.EC (enteric coated) PO SCH (09:34)
[2020-05-15] MEDS: Calcium/Vitamin D TAB 250/125 TAB PO SCH ×2 (09:34→21:22)
[2020-05-15] MEDS: Selenium 200 mcg TAB (NF) PO SCH (09:37)
[2020-05-15] MEDS: Polyethylene Glycol 3350 17 GM PACKET PO SCH (09:37)
[2020-05-15] MEDS: Ondansetron ODT 4 mg TAB 4 MG TAB PO PRN (09:58)
[2020-05-16 05:22] LABS: INR 2.5 (0.82-1.09)
[2020-05-16] MEDS: Aspirin EC 81 mg TAB.EC (enteric coated) PO SCH (07:17)
[2020-05-16] MEDS: Calcium/Vitamin D TAB 250/125 TAB PO SCH ×2 (07:17→20:57)
[2020-05-16] MEDS: Selenium 200 mcg TAB (NF) PO SCH (07:22)
[2020-05-16] MEDS: Polyethylene Glycol 3350 17 GM PACKET PO SCH (07:22)
[2020-05-16] MEDS: Ondansetron ODT 4 mg TAB 4 MG TAB PO PRN (07:22)
[2020-05-17] MEDS: Polyethylene Glycol 3350 17 GM PACKET PO SCH (07:52)
[2020-05-17] MEDS: Calcium/Vitamin D TAB 250/125 TAB PO SCH ×2 (07:54→21:23)
[2020-05-17] MEDS: Aspirin EC 81 mg TAB.EC (enteric coated) PO SCH (07:54)
[2020-05-17] MEDS: Selenium 200 mcg TAB (NF) PO SCH (08:49)
[2020-05-17] MEDS: Neomycin/Polym/Bacit TOP OINT 15 GM TOPICAL SCH (16:04)
[2020-05-18 04:56] LABS: Hematocrit 36 % (35-47); Mean Corpuscular HGB Conc 31 g/dL (31-36); Mean Corpuscular Hemoglobin 25 pg (27-31); Mean Corpuscular Volume 82 fL (80-97); Mean Platelet Volume 8.5 fL (7.4-10.4); Platelet Count 153 10^3/uL (150-450); Red Blood Count 4.39 10^6 /uL (3.70-4.87); Red Cell Distribution Width 26 % (10-15); White Blood Count 6.4 10^3/uL (3.5-10.8)
[2020-05-18 04:58] LABS: INR 2.62 (0.82-1.09)
[2020-05-18 05:07] LABS: Albumin 2.9 g/dL (3.2-5.2); BUN/Creatinine Ratio 29.7 (8-20); Calcium 8.7 mg/dL (8.6-10.3); EGFR African American 95.9 (>60); EGFR Non-African American 79.3 (>60); Globulin 2.9 g/dL (2-4); Potassium 3.8 mmol/L (3.5-5.0); Total Bilirubin 0.8 mg/dL (0.2-1.0); Total Protein 5.8 g/dL (6.4-8.9)
[2020-05-18 06:32] LABS: ABS Basophils 0.3 10^3/ul (0-0.2); ABS Eosinophils 0.2 10^3/ul (0-0.6); ABS Neutrophils 3.7 10^3/ul (1.5-7.7); ABS Nucleated RBC 0.2 10^3/ul; Eosinophil % 3.4 %; Lymphocyte % 16.3 %; Nucleated Red Blood Cells % 2.7
[2020-05-18] MEDS: Calcium/Vitamin D TAB 250/125 TAB PO SCH ×2 (09:10→21:10)
[2020-05-18] MEDS: Aspirin EC 81 mg TAB.EC (enteric coated) PO SCH (09:10)
[2020-05-18] MEDS: Polyethylene Glycol 3350 17 GM PACKET PO SCH (09:11)
[2020-05-18] MEDS: Selenium 200 mcg TAB (NF) PO SCH (09:12)
[2020-05-18] MEDS: Neomycin/Polym/Bacit TOP OINT 15 GM TOPICAL SCH (10:36)
[2020-05-18] MEDS: Ondansetron ODT 4 mg TAB 4 MG TAB PO PRN (17:11)
[2020-05-19] MEDS: Aspirin EC 81 mg TAB.EC (enteric coated) PO SCH (08:48)
[2020-05-19] MEDS: Calcium/Vitamin D TAB 250/125 TAB PO SCH ×2 (08:49→21:41)
[2020-05-19] MEDS: Polyethylene Glycol 3350 17 GM PACKET PO SCH (08:51)
[2020-05-19] MEDS: Neomycin/Polym/Bacit TOP OINT 15 GM TOPICAL SCH (08:52)
[2020-05-19] MEDS: Selenium 200 mcg TAB (NF) PO SCH (08:55)
[2020-05-19] MEDS: Ondansetron ODT 4 mg TAB 4 MG TAB PO PRN ×2 (14:26→21:41)
[2020-05-19] MEDS: Al Hydrox/Mg Hydrox/Simet LIQ 30 ML UDC PO PRN (18:15)
[2020-05-20] MEDS: Ondansetron ODT 4 mg TAB 4 MG TAB PO PRN ×2 (09:11→17:14)
[2020-05-20] MEDS: Aspirin EC 81 mg TAB.EC (enteric coated) PO SCH (09:12)
[2020-05-20] MEDS: Calcium/Vitamin D TAB 250/125 TAB PO SCH ×2 (09:12→21:59)
[2020-05-20] MEDS: Polyethylene Glycol 3350 17 GM PACKET PO SCH (09:14)
[2020-05-20] MEDS: Neomycin/Polym/Bacit TOP OINT 15 GM TOPICAL SCH (09:14)
[2020-05-20] MEDS: Selenium 200 mcg TAB (NF) PO SCH (10:07)
[2020-05-20] MEDS: Al Hydrox/Mg Hydrox/Simet LIQ 30 ML UDC PO PRN (12:48)
[2020-05-21] MEDS: Al Hydrox/Mg Hydrox/Simet LIQ 30 ML UDC PO PRN ×3 (01:06→21:29)
[2020-05-21 05:29] LABS: INR 2.74 (0.82-1.09)
[2020-05-21] MEDS: Aspirin EC 81 mg TAB.EC (enteric coated) PO SCH (09:22)
[2020-05-21] MEDS: Neomycin/Polym/Bacit TOP OINT 15 GM TOPICAL SCH (09:22)
[2020-05-21] MEDS: Polyethylene Glycol 3350 17 GM PACKET PO SCH (09:22)
[2020-05-21] MEDS: Calcium/Vitamin D TAB 250/125 TAB PO SCH ×2 (09:22→21:26)
[2020-05-21] MEDS: Ondansetron ODT 4 mg TAB 4 MG TAB PO PRN ×2 (09:29→16:52)
[2020-05-21] MEDS: Selenium 200 mcg TAB (NF) PO SCH (09:29)
[2020-05-22] MEDS: Ondansetron ODT 4 mg TAB 4 MG TAB PO PRN ×3 (09:23→21:50)
[2020-05-22] MEDS: Calcium/Vitamin D TAB 250/125 TAB PO SCH ×2 (10:42→21:49)
[2020-05-22] MEDS: Aspirin EC 81 mg TAB.EC (enteric coated) PO SCH (10:42)
[2020-05-22] MEDS: Polyethylene Glycol 3350 17 GM PACKET PO SCH (10:43)
[2020-05-22] MEDS: Al Hydrox/Mg Hydrox/Simet LIQ 30 ML UDC PO PRN (10:53)
[2020-05-22] MEDS: Selenium 200 mcg TAB (NF) PO SCH (10:56)
[2020-05-22] MEDS: Neomycin/Polym/Bacit TOP OINT 15 GM TOPICAL SCH (14:16)
[2020-05-22] MEDS ORDERED: Lorazepam PYXIS KEY PRN (20:32)
[2020-05-22] MEDS ORDERED: LORazepam 2 mg VIAL 1 ml IM PRN (20:32)
[2020-05-23 06:01] LABS: ABS Basophils 0.1 10^3/ul (0-0.2); ABS Eosinophils 0.2 10^3/ul (0-0.6); ABS Monocytes 1.3 10^3/ul (0-0.8); ABS Neutrophils 3.7 10^3/ul (1.5-7.7); ABS Nucleated RBC 0.5 10^3/ul; Eosinophil % 3.1 %; Hematocrit 37 % (35-47); Hemoglobin 11.3 g/dL (12.0-16.0); Lymphocyte % 16.2 %; Mean Corpuscular HGB Conc 31 g/dL (31-36); Mean Corpuscular Hemoglobin 25 pg (27-31); Mean Corpuscular Volume 81 fL (80-97); Mean Platelet Volume 9.3 fL (7.4-10.4); Nucleated Red Blood Cells % 7.2; Platelet Count 149 10^3/uL (150-450); Red Blood Count 4.54 10^6 /uL (3.70-4.87); Red Cell Distribution Width 25 % (10-15); White Blood Count 6.3 10^3/uL (3.5-10.8)
[2020-05-23 06:05] LABS: INR 2.51 (0.82-1.09)
[2020-05-23 06:08] LABS: Albumin 3.1 g/dL (3.2-5.2); Albumin/Globulin Ratio 1.1 (1-3); BUN/Creatinine Ratio 30.7 (8-20); Calcium 8.9 mg/dL (8.6-10.3); EGFR African American 78.5 (>60); EGFR Non-African American 64.9 (>60); Globulin 2.8 g/dL (2-4); Potassium 4.3 mmol/L (3.5-5.0); Total Protein 5.9 g/dL (6.4-8.9)
[2020-05-23] MEDS: Ondansetron ODT 4 mg TAB 4 MG TAB PO PRN ×2 (08:53→18:25)
[2020-05-23] MEDS: Calcium/Vitamin D TAB 250/125 TAB PO SCH ×2 (11:29→21:16)
[2020-05-23] MEDS: Aspirin EC 81 mg TAB.EC (enteric coated) PO SCH (11:30)
[2020-05-23] MEDS: Neomycin/Polym/Bacit TOP OINT 15 GM TOPICAL SCH (11:30)
[2020-05-23] MEDS: Polyethylene Glycol 3350 17 GM PACKET PO SCH (11:30)
[2020-05-23] MEDS: Selenium 200 mcg TAB (NF) PO SCH (11:30)
[2020-05-23] MEDS: Al Hydrox/Mg Hydrox/Simet LIQ 30 ML UDC PO PRN (20:10)
[2020-05-24] MEDS: Aspirin EC 81 mg TAB.EC (enteric coated) PO SCH (07:58)
[2020-05-24] MEDS: Calcium/Vitamin D TAB 250/125 TAB PO SCH ×2 (08:01→21:35)
[2020-05-24] MEDS: Selenium 200 mcg TAB (NF) PO SCH (08:03)
[2020-05-24] MEDS: Ondansetron ODT 4 mg TAB 4 MG TAB PO PRN (12:24)
[2020-05-24] MEDS: Polyethylene Glycol 3350 17 GM PACKET PO SCH (14:11)
[2020-05-24] MEDS: Neomycin/Polym/Bacit TOP OINT 15 GM TOPICAL SCH (14:11)
[2020-05-24] MEDS: Al Hydrox/Mg Hydrox/Simet LIQ 30 ML UDC PO PRN (21:36)
[2020-05-25 07:05] VITALS: BP 95/68
[2020-05-25] MEDS: Ondansetron ODT 4 mg TAB 4 MG TAB PO PRN ×2 (08:10→13:45)
[2020-05-25] MEDS: Aspirin EC 81 mg TAB.EC (enteric coated) PO SCH (08:14)
[2020-05-25] MEDS: Calcium/Vitamin D TAB 250/125 TAB PO SCH (08:14)
[2020-05-25] MEDS: Polyethylene Glycol 3350 17 GM PACKET PO SCH (08:15)
[2020-05-25] MEDS: Selenium 200 mcg TAB (NF) PO SCH (08:15)
[2020-05-25] MEDS: Neomycin/Polym/Bacit TOP OINT 15 GM TOPICAL SCH (13:49)
== END 2020-05-25 15:00 | disposition home health service (06) | DRG 860 ==
LOC: PMRU 13:56
PROVIDERS: ADMIT Physical Medicine & Rehabilitation; ATTEND Physical Medicine & Rehabilitation